=== PATIENT | male | born 1950 ===

== ENCOUNTER → 2020-06-29 09:57 | Outpatient (BNVA) | payer MEDICARE, MEDICAID, SELFPAY | PROVIDERS: PCP Internal Medicine; Referring Provider Internal Medicine; Visit Provider Urology | DX: N40.1 Benign prostatic hyperplasia with lower urinary tract symptoms (principal); N13.8 Other obstructive and reflux uropathy; R33.8 Other retention of urine | CPT/HCPCS: 52000; 81003; 99213 ==

== ENCOUNTER 2020-07-06 11:35 | Emergency (ER) | payer MEDICARE, MEDICAID, SELFPAY ==
[2020-07-06] VITALS (9 sets, daily range): BP systolic 93–170; BP diastolic 48–99; PULSE 66–106; RESP 16–17; TEMP 36.5–37.4; O2SAT 95–99; BMI 20.7
--- NOTE | 2020-07-06 | CT_ITS ---
EXAMINATION: CHEST X-RAY CLINICAL INFORMATION: Acute mental status change COMPARISON: Previous chest x-ray April 2020 TECHNIQUE: AP portable chest FINDINGS: The cardiac and mediastinal contours are normal. The lungs are clear. There is no pleural effusion or pneumothorax. There are degenerative changes of the spine. IMPRESSION: No evidence for acute disease in the chest. EXAMINATION: Head CT without contrast CLINICAL INFORMATION: Acute mental status change COMPARISON: Previous head CT and brain MRI April 2020 TECHNIQUE: Axial images through the brain without contrast. Sagittal and coronal reconstructions on the technologist workstation were performed. Patient dose 6 8 4 mg/cm. FINDINGS: There is no evidence of an extra-axial collection. There is no evidence of intra or extra-axial hemorrhage. Ventricles and extra-axial CSF spaces are appropriate. There is nonspecific periventricular white matter disease, greatest in the left occipital lobe adjacent to the posterior horn of the left lateral ventricle. Similar to previous exams. No mass, mass effect or acute infarct is seen. Visualized paranasal sinuses, mastoid air cells and middle ears are clear. No skull fracture or bone lesion is seen. IMPRESSION: No acute findings. Periventricular white matter disease in the left occipital lobe similar to April 2020 exam.
--- NOTE | 2020-07-06 12:42 | PC.NURSE ---
per [facility] staff pt has been paranoid with doors and locks, pt refusing to urinate d/t paranoia of doors, pt states doors are out to kill him. pt showering and eating/drinking okay. recent inpatient admission [facility]
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
--- NOTE | 2020-07-06 13:01 | PC.NURSE ---
pt being changed over with security at this time
[2020-07-06 13:29] LABS: MANUAL DIFF FLAG NO
[2020-07-06 13:34] LABS: Basophils Percent Auto 0.6 % (0-2); Eosinophils Absolute Auto 0.1 X10*3/uL (0.0-0.4); Eosinophils Percent Auto 1.5 % (0-4); Hematocrit 42.4 % (42-52); Imm Gran Abs Auto 0.03 X10*3/uL (0.00-0.03); Imm Gran Pct Auto 0.6 % (0.0-0.4); Lymphocytes Absolute Auto 1.9 X10*3/uL (1.2-4.9); Mean Corpuscular Hemoglobin 31.3 pg (27.0-33.0); Mean Corpuscular Volume 94.9 fL (80-98); Mean Platelet Volume 7.8 fL (9.4-12.4); Monocytes Absolute Auto 0.7 X10*3/uL (0.1-1.2); Monocytes Percent Auto 14.1 % (2-11); Neutrophils Absolute Auto 2.5 X10*3/uL (2.0-8.3); Neutrophils Percent Auto 47.2 % (45-73); Platelet Count 203 X10*3/uL (160-400); Red Blood Count 4.47 X10*6/uL (4.60-5.80); Red Cell Distribution Width 12.9 % (11.0-16.0); White Blood Count 5.2 X10*3/uL (4.8-10.8)
[2020-07-06 13:43] LABS: INTERNATIONAL NORM RATIO 1.1 (0.9-1.1); Prothrombin Time 13.1 SEC (10.8-13.0)
[2020-07-06 13:59] LABS: Ethanol < 10 mg/dL
[2020-07-06 14:09] LABS: Acetaminophen LAB < 1 mcg/mL (<30); Alanine Aminotransferase < 6 U/L (0-40); Alkaline Phosphatase 66 U/L (39-117); Anion Gap 11 (12-20); Aspartate Amino Transferase 15 U/L (5-37); Bilirubin Direct 0.2 mg/dL (0.0-0.5); Bilirubin Total 0.3 mg/dL (0.0-1.0); Blood Urea Nitrogen 11 mg/dL (9-16); Carbon Dioxide 32 mmol/L (22-29); Chloride 98 mmol/L (96-108); Estimated Glomerular Filt Rate > 60; Glucose Random 67 mg/dL (60-115); Lipase 9 U/L (8-78); Potassium 4.2 mmol/l (3.3-5.1); Sodium 137 mmol/L (135-145); Total Protein 6.5 g/dL (6.5-8.0)
[2020-07-06 14:18] LABS: Salicylate < 5.0 mg/dL (15-30)
--- NOTE | 2020-07-06 15:13 | PC.NURSE ---
factory engineer placing consult for med rec. pharmacy aware
--- NOTE | 2020-07-06 16:37 | PC.NURSE ---
FAXED TO [facility], SPOKE WITH LIYA
[2020-07-06 17:04] LABS: Glucose Urine UA NEG (NEG); Leukocyte Esterase Urine NEG (NEG); Nitrite Urine NEG (NEG); Specific Gravity - Urine 1.015 (1.005-1.025); Urine Blood NEG (NEG); Urine Ketones NEG (NEG); Urine Protein NEG (NEG-TRACE)
[2020-07-06 17:06] LABS: Appearance Urine CLEAR; Color Urine YELLOW
--- NOTE | 2020-07-06 17:22 | PC.NURSE ---
CONTINUES TO AWAIT N, STAFF REMAINS AT BEDSIDE
[2020-07-06 17:41] LABS: Amphetamine Screen Urine Not Detected (Not Detect); Barbiturates, Urine Not Detected (Not Detect); Benzodiazepines Screen Urine Not Detected (Not Detect); Cannabinoid Screen Urine Not Detected (Not Detect); Cocaine Screen Urine Not Detected (Not Detect); Opiate Screen Urine Not Detected (Not Detect); Phencyclidine Screen Urine Not Detected (Not Detect)
--- NOTE | 2020-07-06 18:02 | PC.NURSE ---
CALL PLACED TO KITCHEN FOR SOFT DIET
--- NOTE | 2020-07-06 18:41 | PC.NURSE ---
PT ATE 100% OF DINNER
[2020-07-06] MEDS: Carbidopa/Levodopa 25/100 TABLET 1.5 TAB PO (20:45)
[2020-07-06] MEDS: LORazepam 1 MG TABLET 2 MG PO (20:45)
[2020-07-06 21:03] LABS: Glucose, Whole Blood 98 mg/dL (60-115)
[2020-07-07] VITALS (9 sets, daily range): BP systolic 104–190; BP diastolic 67–113; PULSE 73–98; RESP 12–20; TEMP 36.6–37.3; O2SAT 96–98
[2020-07-07 08:30] LABS: Glucose, Whole Blood 101 mg/dL (60-115)
[2020-07-07] MEDS: Carbidopa/Levodopa 25/100 TABLET 1.5 TAB PO ×2 (11:01→16:51)
[2020-07-07 13:11] LABS: Glucose, Whole Blood 90 mg/dL (60-115)
--- NOTE | 2020-07-07 15:16 | PC.NURSE ---
Updated ED transfer summary fzxed to Kristyn at [facility], per her request.
[2020-07-07] MEDS: lisinopriL 20 MG TABLET PO (16:51)
--- NOTE | 2020-07-07 22:44 | PC.NURSE ---
PT HAS BEEN CALM AND COOPERATIVE RESTING IN STRETCHER WITH SITTER AT BEDSIDE WITH PT. WILL CONTINUE TO MONITOR PT.
[2020-07-08] VITALS (10 sets, daily range): BP systolic 143–165; BP diastolic 65–99; PULSE 74–103; RESP 14–20; TEMP 36.6; O2SAT 96–98
[2020-07-08] MEDS: lisinopriL 20 MG TABLET PO ×2 (00:02→22:39)
[2020-07-08] MEDS: Carbidopa/Levodopa 25/100 TABLET 1.5 TAB PO ×5 (00:04→22:39)
--- NOTE | 2020-07-08 14:54 | PC.NURSE ---
RECEIVED REPORT FROM JUSTINA PT IS CURRENTLY SITTING ON THE EDGE OF THE BED, RESPIRATIONS EVEN AND UNLABORED, IN NO APPARENT DISTRESS AT THIS TIME PT CONTINUOS ON BEING BERNICE BED SEARCH SITTER IN PLACE
[2020-07-09] VITALS (12 sets, daily range): BP systolic 133–155; BP diastolic 82–105; PULSE 76–98; RESP 14–20; TEMP 36.3–37.1; O2SAT 95–99
--- NOTE | 2020-07-09 02:27 | PC.NURSE ---
PATIENT AWAKE WATCHING TELEVISION ,REPOSITION PATIENT AND ASSIST PATIENT WITH DRINKS.
--- NOTE | 2020-07-09 03:45 | PC.NURSE ---
Pt sleeping at this time. Resp reg and even. NAD. Sitter maintained.
[2020-07-09] MEDS: LORazepam 1 MG TABLET 2 MG PO ×2 (04:59→23:21)
[2020-07-09] MEDS: Acetaminophen 325 MG TABLET 650 MG PO ×2 (04:59→23:21)
--- NOTE | 2020-07-09 06:02 | PC.NURSE ---
Late entry: Pt agitated, speaking in Cypriot, but not making sense to Cypriot speaking staff. Pt declining to go in wheelchair or recliner. Urinal offered and declined. Lotion applied to legs and back. Pt assisted back from the edge of his bed. Pt continuing to be agitated, order of Ativan PO obtained and admin per mar as well as PRN tylenol. Pt currently resting with eyes closed, sitter maintained for safety.
--- NOTE | 2020-07-09 06:11 | PC.NURSE ---
PATIENT REFUSED VITALS ,NURSE AWARE.
--- NOTE | 2020-07-09 07:00 | PC.NURSE ---
RECEIVED REPORT FROM PANCHITO LANDERS. PT SLEEPING ON STRETCHER IN POSITION OF COMFORT. SKIN WPD. RESPIRATIONS EVEN AND NON LABORED. IN CLEAR VIEW OF PATIENT OBSERVER.
[2020-07-09] MEDS: Carbidopa/Levodopa 25/100 TABLET 1.5 TAB PO ×3 (10:20→23:22)
[2020-07-09] MEDS: Mineral Oil/Petrolatum,White 106 GM Tube 1 APPL TOPICAL (10:47)
--- NOTE | 2020-07-09 13:45 | PC.NURSE ---
PT WAS FED HIS LUNCH. PT ATE 100% OF LUNCH. NO APPARENT DISTRESS NOTED.
--- NOTE | 2020-07-09 15:46 | PC.NURSE ---
PATIENT WAS GIVEN A BED BATH BY THIS PCT ,PATIENT WAS INC. OF MODERATE STOOL
--- NOTE | 2020-07-09 16:25 | PC.NURSE ---
sPOKE WITH [facility]. [facility] WING LOOKING AT PATIENT. PATIENT TO HAVE EKG, COVID ,CXR AND LABS RESULTS FAXED OVER FOR FURTHER EVAL.
[2020-07-09 16:38] LABS: Glucose, Whole Blood 108 mg/dL (60-115)
--- NOTE | 2020-07-09 16:48 | ECG_ITS ---
Test Reason : BEHAVIROL Blood Pressure : / mmHG Vent. Rate : 100 BPM Atrial Rate : 200 BPM P-R Int : 000 ms QRS Dur : 084 ms QT Int : 308 ms P-R-T Axes : 111 -27 -02 degrees QTc Int : 397 ms Atrial flutter with 2:1 A-V conduction Nonspecific T wave abnormality RSR' or QR pattern in V1 suggests right ventricular conduction delay Left axis deviation Abnormal ECG Heart rate has increased aflutter is new Left axis deviation is new Referred By: Ashish Oneill Electronically Signed By:JACOBO JACOB MD
--- NOTE | 2020-07-09 17:05 | PC.NURSE ---
PATIENT WAS INC OF LARGE BOWEL MOVEMENT ,BECAME RESISTIVE WHILE CLEANING HIM .
[2020-07-09] MEDS: LORazepam 2 MG/ML VIAL 1 MG IM (17:26)
--- NOTE | 2020-07-09 17:27 | PC.NURSE ---
patient medicated with ativan 1mg im for aggressive behavior. covid swab done
[2020-07-09 18:32] LABS: SARS COV2 PCR INHOUSE NEGATIVE (Negative)
--- NOTE | 2020-07-09 18:52 | PC.NURSE ---
PATIENT WAS FED BY THIS PCT ,PATIENT ATE 100 % OF MEAL.
[2020-07-09] MEDS: lisinopriL 20 MG TABLET PO (23:21)
--- NOTE | 2020-07-09 23:25 | PC.NURSE ---
report from freddy rn, pt attempting to get out of bed, this rn along with newspaper copy editor garcia assisting pt back into bed, pt yelling and getting aggressive towards staff, slurry man nathen made aware and plan to medicate with tylenol and ativan as given last night with good affect. staff medical interpretor called and assisting.
--- NOTE | 2020-07-09 23:43 | PC.NURSE ---
PT REFUSING TO TAKE PO MEDS AT THIS TIME, WILL RE ATTEMPT AFTER GIVING PT SOME TIME, PROVIDER MADE AWARE
[2020-07-10] VITALS (12 sets, daily range): BP systolic 123–146; BP diastolic 64–89; PULSE 88–92; RESP 14–18; TEMP 37.2; O2SAT 95–97
--- NOTE | 2020-07-10 00:09 | PC.NURSE ---
PT SEEN SLEEPING AT THIS TIME, NO PO MEDS GIVEN. UNABLE TO CHART AGAINST IN MAR
--- NOTE | 2020-07-10 08:54 | ECG_ITS ---
Test Reason : QUESTION A FLUTTER Blood Pressure : / mmHG Vent. Rate : 097 BPM Atrial Rate : 097 BPM P-R Int : 144 ms QRS Dur : 092 ms QT Int : 340 ms P-R-T Axes : 038 -27 024 degrees QTc Int : 431 ms Normal sinus rhythm RSR' or QR pattern in V1 suggests right ventricular conduction delay Left axis deviation Nonspecific ST abnormality Abnormal ECG Normal sinus rhythm has replaced aflutter Referred By: Ashish Oneill Electronically Signed By:JACOBO JACOB MD
[2020-07-10] MEDS: Carbidopa/Levodopa 25/100 TABLET 1.5 TAB PO (09:15)
--- NOTE | 2020-07-10 09:20 | PC.NURSE ---
pharmacy called for missing medications, mineral oil and phylum seed
[2020-07-10] MEDS: LORazepam 2 MG/ML VIAL IM (10:08)
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
[2020-07-10] MEDS: LORazepam 2 MG/ML VIAL 1 MG IM (10:42)
--- NOTE | 2020-07-10 11:12 | PC.NURSE ---
all info faxed to . lv took report from this rn
--- NOTE | 2020-07-10 13:34 | PC.NURSE ---
patient sleeping/calm, rr 18, sitter at bedside, will continue to monitor.
--- NOTE | 2020-07-10 15:03 | PC.NURSE ---
spoke with patric at [facility], accepting doctor is dr. kirstin harrell
--- NOTE | 2020-07-10 16:42 | PC.NURSE ---
pt refusal earlier to take medication, pt was previously given ativan for agitation, patient is currently sleeping/calm, rr 18, will continue to monitor.
== END 2020-07-10 19:08 ==
PROVIDERS: Nurse Practitioner Primary Care; Physician Assistant; Emergency Provider Internal Medicine; PCP Internal Medicine
DX: F20.9 Schizophrenia, unspecified (principal); Z20.828 Contact with and (suspected) exposure to other viral communicable diseases; R62.50 Unspecified lack of expected normal physiological development in childhood; F39 Unspecified mood [affective] disorder; E11.9 Type 2 diabetes mellitus without complications; I10 Essential (primary) hypertension; G20 Parkinson's disease; Z79.899 Other long term (current) drug therapy; Z79.82 Long term (current) use of aspirin; Z79.84 Long term (current) use of oral hypoglycemic drugs
CPT/HCPCS: 36415; 70450; 71045; 80053; 80076; 80164; 80307; 80320; 81003; 82248; 82947; 83690; 85025; 85610; 87635; 93005; 96372; 99285; G0480; J2060

== ENCOUNTER 2020-08-18 14:21 | Emergency (ER) | payer MEDICARE, MEDICAID, SELFPAY ==
[2020-08-18] VITALS (7 sets, daily range): BP systolic 000–167; BP diastolic 00–85; PULSE 89–129; RESP 16–20; TEMP -17.7–37; O2SAT 99–100; BMI 24.0
--- NOTE | 2020-08-18 14:46 | ED_ITS ---
HPI - Psych General Chief Complaint: Psychiatric Symptoms Stated Complaint: CRISIS Time Seen by Provider: 08/18/20 14:45 Source: EMS Mode of arrival: EMS Limitations: no limitations History of Present Illness HPI Narrative: this is 70-year-old is primarily Liberian-speaking male who presents from the [facility] via EMS with past medical history that is significant for hypertension, dyslipidemia, gastroesophageal reflux disease, irritable bowel syndrome, type 2 diabetes, mood disorder, depressive disorder, schizophrenia, moderate mental retardation, hypercholesteremia along with other history as noted below with complaint of patient has been increasingly paranoid, delusional with expression of SI with no plan from [facility] he where he was seen by crisis team and sent to emergency room for psychiatric bed search. Patient upon arrival offers no complaints does appear to be disorganized does not say much but walks back and forth. On the face sheet from the [facility] there is section this is relevant give abilities, limitations and performance; factor is highly capable but is considered incompetent. He has the ability to learn new things with minimal assistance, and can maintain skill acquisition. Ezekiel has poor short-term memory. MD complaint: suicidal ideation Onset (ago): week(s) Duration: constant History of same: Yes Relieving factors: none Associated psychiatric symptoms: none Associated symptoms: denies other symptoms Treatments prior to arrival: none If self harm: admits thoughts of self harm Related Data Home Medications Medication Instructions Recorded Confirmed aspirin 81 mg tablet,delayed 81 mg PO DAILY 06/27/20 08/18/20 release benztropine 0.5 mg tablet 0.5 mg PO BID 06/27/20 08/18/20 cholecalciferol (vitamin D3) 25 25 mcg PO DAILY 06/27/20 08/18/20 mcg (1,000 unit) tablet metformin 500 mg tablet 500 mg PO BIDWM 06/27/20 08/18/20 mirtazapine 15 mg tablet 22.5 mg PO BEDTIME tab 06/27/20 08/18/20 omeprazole 20 mg capsule,delayed 20 mg PO DAILY@0600 06/27/20 08/18/20 release simvastatin 10 mg tablet 10 mg PO BEDTIME 06/27/20 08/18/20 carbidopa-levodopa 1.5 tab PO QID 07/06/20 08/18/20 glycerin [Artificial Tears 2 drp OPHTHALMIC (EYE) Q2H PRN 07/06/20 08/18/20 (glycerin)] lisinopril 20 mg PO BEDTIME 07/06/20 08/18/20 divalproex 250 mg tablet,delayed 250 mg PO TID 08/15/20 08/18/20 release duloxetine 60 mg capsule,delayed 60 mg PO DAILY 08/15/20 08/18/20 release magnesium hydroxide 800 mg/5 mL 2,400 mg PO BEDTIME PRN 08/15/20 08/18/20 oral suspension risperidone 0.5 mg tablet 0.5 mg PO BEDTIME PRN 08/15/20 08/18/20 risperidone 1 mg tablet 1 mg PO BID 08/15/20 08/18/20 tamsulosin 0.4 mg capsule 0.4 mg PO DAILY 08/15/20 08/18/20 topiramate 50 mg tablet 50 mg PO DAILY tab 08/15/20 08/18/20 Previous Rx's Medication Instructions Recorded acetaminophen 325 mg tablet 650 mg PO .Q8 hours PRN 30 Days 08/03/20 #60 tab calcium carbonate 500 mg calcium 1,000 mg PO DAILY PRN #60 tab 08/15/20 (1,250 mg) chewable tablet docusate sodium 100 mg capsule 100 mg PO BID PRN #60 cap 08/15/20 flaxseed oil 1,000 mg capsule 1,000 mg PO TID #90 cap 08/15/20 guaifenesin 100 mg/5 mL oral liquid 200 mg PO Q6H PRN #1000 ml 08/15/20 mineral oil-isopropyl myristat 1 applic TOPICAL DAILY #472 ml 08/15/20 lotion psyllium husk 0.52 gram capsule 1.04 g PO TID PRN #30 cap 08/16/20 Allergies Allergy/AdvReac Type Severity Reaction Status Date / Time perfume Allergy Intermediate ITCHING Verified 08/15/20 15:18 Review of Systems Review of Systems: Constitutional: No Weight loss, No Fever, No Chills, No Night Sweats, No Fatigue, No Malaise ENT/Mouth: No Hearing loss, No Ear Pain, No Nasal Congestion, No Sinus Pain, No Hoarseness, No sore throat Eyes: No Eye Pain, No Swelling, No Redness, No Foreign Body Cardiovascular: No Chest Pain, No SOB, No Dyspnea on Exertion, No Orthopnea, No Edema, No Palpitations Respiratory: No Cough, No Sputum, No Wheezing, No Smoke Exposure, No Dyspnea Gastrointestinal: No Nausea, No Vomiting, No Diarrhea, No Constipation, No abdominal Pain Genitourinary: no irregular bleeding, No Dysuria, No Urinary Frequency, No Hematuria, No Urinary Incontinence, No Urgency, No Flank Pain Musculoskeletal: No joint pain, No Myalgias, No Joint Swelling Skin: No Skin Lesions, No rash Neuro: No Weakness, No Numbness, No Paresthesias, No Loss of Consciousness Psych: No Anxiety/Panic, No Depression Heme/Lymph: No Bruising, No Bleeding,No Lymphadenopathy Endocrine: No Polyuria, No Polydipsia, No Temperature Intolerance Yes all other systems are reviewed and are negative [facility] Past Medical History Attestation statement: The following information was validated with the patient. Medical History (Updated 08/18/20 @ 18:01 by Jl Degroot NP) BPH with obstruction/lower urinary tract symptoms Depression Developmental delay, moderate Dysphagia Gastroesophageal reflux disease Hypercholesteremia Hypertension Metabolic encephalopathy Mood disorder Parkinson's disease Schizophrenia Tubular adenoma of colon Type 2 diabetes mellitus with hyperglycemia Vitamin D deficiency Surgical History (Updated 07/07/20 @ 12:59 by Mila Ortega Brittny) History of circumcision History of colonoscopy History of prostate surgery Family History Family History Father Type II diabetes mellitus Mother Type II diabetes mellitus Social History Social History Alcohol intake: unknown Smoking Status: Unknown if ever smoked Use of substances other than those prescribed or required for medical reasons: Unknown Advance Directives: No Advance Directives Information Provided: No Physical Exam Vital Signs: Vital Signs: Last Vital Signs Temp 98.0 F 08/18/20 17:05 Pulse 93 08/18/20 17:05 Resp 20 08/18/20 17:05 BP 107/76 08/18/20 17:05 Pulse Ox 99 08/18/20 17:05 Body Mass Index 24.0 Reviewed Const: General: cooperative and healthy appearing; No acute distress or intoxicated appearing Nutritional Appearance: average body habitus Orientation/consciousness: patient oriented x3 HENMT: Head: Yes normal to inspection Ears: hearing grossly normal bilaterally Eyes: General: appearance normal, both eyes and all related structures Visual Monterroso: normal visual monterroso by confrontation Neck: Neck: Yes normal visual inspection and No tender Thyroid: Thyroid normal Chest: Chest palpation & inspection: normal inspection of the chest Resp: Effort & Inspection: normal respiratory effort Cardio: Jugular venous distension: no JVD GI: Inspection: Yes normal to inspection Percussion: Yes normal to percussion Auscultation: normal bowel sounds : General: Yes no CVA tenderness Back/Spine/Pelvis: Back: no CVA tenderness Skin: General skin exam: no rashes or lesions noted Neuro: General: patient oriented x3 Extrem: General: Yes normal to inspection Course Course Course Narrative: Patient offers no complaints does require redirection. Medical screening labs given age head CT and will monitor. Once medically clear psychiatric bed search will be initiated. Reevaluation(s) Reevaluation #1: Informed by RN that patient was slightly tachycardic and blood pressure was on the lower side patient was pacing back and forth so patient was moved to emergency room. Labs ordered patient appears well nontoxic and comfortable. Reevaluation #2: 1800 Workup essentially unremarkable head CT negative. Patient has been resting comfortably blood pressure is stable his heart rate is 78. patient medically cleared for psychiatric bed search. MDM - Psych Restraints Face to Face Assessment: Face to Face Assessment: Current Situation: After assessment of the patient, a review of the pertinent medical record and a discussion with nursing staff, I feel the patient requires a restrain intervention. Reaction To: [] Medical Condition: [] Behavioral State: [] Continued Need: [] Lab Data Result diagrams: 08/18/20 16:58 08/18/20 16:58 Labs: Lab Results 08/18/20 08/18/20 08/18/20 Range/Units 16:58 16:58 16:58 WBC 5.9 (4.8-10.8) X10*3/uL RBC 4.45 L (4.60-5.80) X10*6/uL Hgb 13.8 L (14.0-18.0) g/dl Hct 41.7 L (42-52) % MCV 93.7 (80-98) fL MCH 31.0 (27.0-33.0) pg MCHC 33.1 (31.0-36.0) g/dl RDW 13.4 (11.0-16.0) % Plt Count 211 (160-400) X10*3/uL MPV 8.5 L (9.4-12.4) fL Immature Gran % (Auto) 0.3 (0.0-0.4) % Neut % (Auto) 57.5 (45-73) % Lymph % (Auto) 25.8 (20-40) % [place] % (Auto) 15.7 H (2-11) % Eos % (Auto) 0.5 (0-4) % Baso % (Auto) 0.2 (0-2) % Lymph # (Auto) 1.5 (1.2-4.9) X10*3/uL [place] # (Auto) 0.9 (0.1-1.2) X10*3/uL Eos # (Auto) 0.0 (0.0-0.4) X10*3/uL Baso # (Auto) 0.0 (0.0-0.2) X10*3/uL Abs Immat Gran (auto) 0.02 (0.00-0.03) X10*3/uL Absolute Neuts (auto) 3.4 (2.0-8.3) X10*3/uL Absolute Nucleated RBC 0.000 (0.0-0.012) X10*3/uL Nucleated RBC % (auto) 0.0 (0.0-0.2) /100WBC PT 12.4 (10.8-13.0) SEC INR 1.0 (0.9-1.1) APTT 34.0 (24.1-38.0) SEC Sodium 137 (135-145) mmol/L Potassium 4.7 (3.3-5.1) mmol/l Chloride 100 (96-108) mmol/L Carbon Dioxide 27 (22-29) mmol/L Anion Gap 15 (12-20) BUN 16 (9-16) mg/dL Creatinine 0.93 (0.5-1.4) mg/dL Estim Creat Clear Calc 61.0 Estimated GFR > 60 Random Glucose 86 (60-115) mg/dL Calcium 9.3 (8.4-10.2) mg/dL Total Bilirubin 0.5 (0.0-1.0) mg/dL AST 15 (5-37) U/L ALT < 6 (0-40) U/L Alkaline Phosphatase 78 (39-117) U/L Total Protein 7.2 (6.5-8.0) g/dL Albumin 4.3 (3.5-5.0) g/dL Ethyl Alcohol mg/dL COVID-19 (MICHELLE) COVID-19 Clin Com 08/18/20 08/18/20 08/18/20 Range/Units 16:58 16:58 17:21 WBC (4.8-10.8) X10*3/uL RBC (4.60-5.80) X10*6/uL Hgb (14.0-18.0) g/dl Hct (42-52) % MCV (80-98) fL MCH (27.0-33.0) pg MCHC (31.0-36.0) g/dl RDW (11.0-16.0) % Plt Count (160-400) X10*3/uL MPV (9.4-12.4) fL Immature Gran % (Auto) (0.0-0.4) % Neut % (Auto) (45-73) % Lymph % (Auto) (20-40) % Denton % (Auto) (2-11) % Eos % (Auto) (0-4) % Baso % (Auto) (0-2) % Lymph # (Auto) (1.2-4.9) X10*3/uL [place] # (Auto) (0.1-1.2) X10*3/uL Eos # (Auto) (0.0-0.4) X10*3/uL Baso # (Auto) (0.0-0.2) X10*3/uL Abs Immat Gran (auto) (0.00-0.03) X10*3/uL Absolute Neuts (auto) (2.0-8.3) X10*3/uL Absolute Nucleated RBC (0.0-0.012) X10*3/uL Nucleated RBC % (auto) (0.0-0.2) /100WBC PT (10.8-13.0) SEC INR (0.9-1.1) APTT (24.1-38.0) SEC Sodium (135-145) mmol/L Potassium (3.3-5.1) mmol/l Chloride (96-108) mmol/L Carbon Dioxide (22-29) mmol/L Anion Gap (12-20) BUN (9-16) mg/dL Creatinine (0.5-1.4) mg/dL Estim Creat Clear Calc Estimated GFR Random Glucose (60-115) mg/dL Calcium (8.4-10.2) mg/dL Total Bilirubin (0.0-1.0) mg/dL AST (5-37) U/L ALT (0-40) U/L Alkaline Phosphatase (39-117) U/L Total Protein (6.5-8.0) g/dL Albumin (3.5-5.0) g/dL Ethyl Alcohol < 10 mg/dL COVID-19 (MICHELLE) Cancelled Positive A COVID-19 Clin Com Cancelled See Note Discharge Plan Discharge Clinical Impression: Schizophrenia, Suicidal ideation, Chronic schizophrenia Prescriptions: No Action acetaminophen 325 mg tablet 650 mg PO .Q8 hours PRN (Reason: fever or pain) 30 Days Qty: 60 RF: 2 psyllium husk [Fiber Laxative (psyllium husk)] 0.52 gram capsule 1.04 g PO TID PRN (Reason: constipation) Qty: 30 RF: 10 lisinopril 20 mg Tablet 20 mg PO BEDTIME RF: 0 Artificial Tears (glycerin) Drops 2 drp OPHTHALMIC (EYE) Q2H PRN (Reason: Dry Eyes) RF: 0 carbidopa-levodopa 25-100 mg Tablet 1.5 tab PO QID RF: 0 magnesium hydroxide 800 mg/5 mL suspension 2,400 mg PO BEDTIME PRN (Reason: Constipation) RF: 0 divalproex [Depakote] 250 mg tablet,delayed release (DR/EC) 250 mg PO TID RF: 0 duloxetine 60 mg capsule,delayed release(DR/EC) 60 mg PO DAILY RF: 0 risperidone 1 mg tablet 1 mg PO BID RF: 0 risperidone [Risperdal] 0.5 mg tablet 0.5 mg PO BEDTIME PRN (Reason: Anxiety) RF: 0 topiramate [Topamax] 50 mg tablet 50 mg PO DAILY RF: 0 tamsulosin 0.4 mg capsule 0.4 mg PO DAILY RF: 0 guaifenesin 100 mg/5 mL liquid 200 mg PO Q6H PRN (Reason: Cough) Qty: 1000 RF: 0 calcium carbonate 500 mg calcium (1,250 mg) tablet,chewable 1,000 mg PO DAILY PRN (Reason: Indigestion) Qty: 60 RF: 3 docusate sodium [Colace] 100 mg capsule 100 mg PO BID PRN (Reason: constipation) Qty: 60 RF: 0 flaxseed oil 1,000 mg capsule 1,000 mg PO TID Qty: 90 RF: 3 Hydrocerin Lotion 1 applic TOPICAL DAILY Qty: 472 RF: 0 omeprazole 20 mg capsule,delayed release(DR/EC) 20 mg PO DAILY@0600 RF: 0 mirtazapine 15 mg tablet 22.5 mg PO BEDTIME RF: 0 cholecalciferol (vitamin D3) [Vitamin D3] 25 mcg (1,000 unit) tablet 25 mcg PO DAILY RF: 0 metformin [Glucophage] 500 mg tablet 500 mg PO BIDWM RF: 0 benztropine 0.5 mg tablet 0.5 mg PO BID RF: 0 aspirin [Adult Low Dose Aspirin] 81 mg tablet,delayed release (DR/EC) 81 mg PO DAILY RF: 0 simvastatin 10 mg tablet 10 mg PO BEDTIME RF: 0
--- NOTE | 2020-08-18 14:55 | PC.NURSE ---
PT is section 12 bedsearch by [facility], per Section pt is disoriented, paranoid delusions, suicidal ideations with no plan. Per N pt multiple medication changes over the past month and has been decompensating. Medicaitons changes: Mirtazapine increased from 15mg, is now on 22.5mg daily Risperdal decreased from 4mg BID, is now on 1mg BID Depakote decreased from 1000mg at HS, is now on 250mg TID Cymbalta increased from 40mg, is now on 60mg daily Carbidopa-Levodopa decreased from 2500mg to37.5-150T 4 times daily Dicyclomine 10mg TID was discontinued
--- NOTE | 2020-08-18 15:36 | PC.NURSE ---
Report given to Leticia FLANAGAN, pt to be moved to Main ED.
[2020-08-18] MEDS: LORazepam 2 MG/ML VIAL 0.5 MG IVPUSH (16:59)
[2020-08-18] MEDS: 0.9 % Sodium Chloride 1,000 ML 1000 ML IV (17:00)
[2020-08-18 17:03] LABS: MANUAL DIFF FLAG NO
--- NOTE | 2020-08-18 17:17 | PC.NURSE ---
pt was coaxed to rest in the bed by staff, vulcan crewmember and security. Pt is speaking but not oriented, he states the same words over and over. IV was established, pt tolerated well. He was medicated for anxiety and is getting IVF. Labs were drawn and sent at time of IV cannulation, also Covid swab obtained and sent.
[2020-08-18 17:19] LABS: Basophils Percent Auto 0.2 % (0-2); Eosinophils Percent Auto 0.5 % (0-4); Hematocrit 41.7 % (42-52); Hemoglobin 13.8 g/dl (14.0-18.0); Imm Gran Abs Auto 0.02 X10*3/uL (0.00-0.03); Imm Gran Pct Auto 0.3 % (0.0-0.4); Lymphocytes Absolute Auto 1.5 X10*3/uL (1.2-4.9); Lymphocytes Percent Auto 25.8 % (20-40); Mean Corpuscular HGB Conc 33.1 g/dl (31.0-36.0); Mean Corpuscular Volume 93.7 fL (80-98); Mean Platelet Volume 8.5 fL (9.4-12.4); Monocytes Absolute Auto 0.9 X10*3/uL (0.1-1.2); Monocytes Percent Auto 15.7 % (2-11); Neutrophils Absolute Auto 3.4 X10*3/uL (2.0-8.3); Neutrophils Percent Auto 57.5 % (45-73); Platelet Count 211 X10*3/uL (160-400); Red Blood Count 4.45 X10*6/uL (4.60-5.80); Red Cell Distribution Width 13.4 % (11.0-16.0); White Blood Count 5.9 X10*3/uL (4.8-10.8)
[2020-08-18 17:22] LABS: Prothrombin Time 12.4 SEC (10.8-13.0)
[2020-08-18 17:41] LABS: Ethanol < 10 mg/dL
[2020-08-18 17:42] LABS: Alanine Aminotransferase < 6 U/L (0-40); Albumin Level 4.3 g/dL (3.5-5.0); Alkaline Phosphatase 78 U/L (39-117); Anion Gap 15 (12-20); Aspartate Amino Transferase 15 U/L (5-37); Bilirubin Total 0.5 mg/dL (0.0-1.0); Blood Urea Nitrogen 16 mg/dL (9-16); Calcium 9.3 mg/dL (8.4-10.2); Carbon Dioxide 27 mmol/L (22-29); Chloride 100 mmol/L (96-108); Estimated Glomerular Filt Rate > 60; Glucose Random 86 mg/dL (60-115); Potassium 4.7 mmol/l (3.3-5.1); Sodium 137 mmol/L (135-145); Total Protein 7.2 g/dL (6.5-8.0)
[2020-08-18 17:52] LABS: COVID-19 Test Positive (Negative); IDNOW Serial# 9DD0AD1C
[2020-08-18 18:09] LABS: Valproate 42.3 mcg/mL (50.0-100.0)
--- NOTE | 2020-08-18 22:13 | PC.NURSE ---
PT CLEANED UP AND EATING SANDWICH AND DRINKING RYAN [place]. PT CALM AND FOLLOWING SIMPLE COMMANDS. PT AWAKE AND SPEAKING IN LITHUANIAN TO PCT. PT UP SITTING IN A CHAIR EATING.
[2020-08-19] VITALS (15 sets, daily range): BP systolic 104–167; BP diastolic 68–123; PULSE 75–106; RESP 14–18; TEMP 36.7–37.3; O2SAT 96–100
--- NOTE | 2020-08-19 01:02 | PC.NURSE ---
PT RESTING IN STRETCHER AWAITING BED SEARCH. PT REMAINS ON 1:1 OBS. PT RESTING WITH EYES CLOSED BUT WAKES TO VERBAL STIMULI, RESPIRATIONS EASY, N/L. SKIN W/D. PT DENIES ANY COMPLAINTS AT THIS TIME.
--- NOTE | 2020-08-19 08:37 | PC.NURSE ---
RECEIVED REPORT FROM JILLIAN FLANAGAN THIS AM. PT SLEEPING SINCE WITH SITTER AT DOOR. P [facility] BEDSEARCH. SEC 12. COVID POSITIVE
--- NOTE | 2020-08-19 09:29 | PC.NURSE ---
AWAKE. DECLINES BREAKFAST
--- NOTE | 2020-08-19 12:03 | PC.NURSE ---
pt incontinent of urine and cleansed with new linnens by pct. this rn in room for assessment. pt is alert, able to follow simple commands but difficult to understant at times. no resp distress. nsr on monitor. iv flushed and clamped. pt stating he was hungry. during report it was noted that pt didn't eat breakfast. pt unable to fully coordinate hand to mouth d/t gross parkinsonian tremors for this rn. pt fed diabetic pudding and jello. meals to be pureed moving forward. pt brought warm blanket. offered recliner and choosing to remain in bed, right side lying. sitter outside of room. this rn to call [facility] for update on bedsearch. pt is calm. denies si at this time.
--- NOTE | 2020-08-19 12:11 | PC.NURSE ---
this rn calling heather rojas stating that status update was completed this am, bedsearch continues, bob needs mediacal records from ed faxed including covid test results. She states patient was in a DSS residential setting (prison) had increased paranoia and distrustful thoughts. they will fax med list to ed. [facility] fax is [phone]
[2020-08-19] MEDS: Divalproex Sodium 250 MG TABLET.DR PO ×2 (14:40→21:58)
--- NOTE | 2020-08-19 15:20 | PC.NURSE ---
Pt transfered to hospital bed with alarm. Has minimal bed mobility. Fed milk at pt's request. Pt has become hypertensive. ELECTRICAL ENGINEERING TECHNOLOGIST Is aware. Blanchable pink area on christiano prominence of coccyx. Posioned right side lying with pillows. pt becomes slightly aggitated during interventions but calms quickly.
[2020-08-19 15:24] LABS: Amphetamine Screen Urine Not Detected (Not Detect); Barbiturates, Urine Not Detected (Not Detect); Benzodiazepines Screen Urine Not Detected (Not Detect); Cannabinoid Screen Urine Not Detected (Not Detect); Cocaine Screen Urine Not Detected (Not Detect); Opiate Screen Urine Not Detected (Not Detect); Phencyclidine Screen Urine Not Detected (Not Detect)
--- NOTE | 2020-08-19 16:56 | PC.NURSE ---
cleansed of urine again when asked pt states he's better . has distant look. isn't very verbal during this visit from rn. awaits [facility] psych bed.
[2020-08-19] MEDS: metFORMIN HCl 500 MG TABLET PO (17:11)
[2020-08-19] MEDS: risperiDONE 0.5 MG TABLET PO (17:11)
--- NOTE | 2020-08-19 17:14 | PC.NURSE ---
pt is less interactive and seemingly frightened or aggitated with all interventions. tremors are increased, grabbing at linens and staff, unable to redirect with verbal prompts. risperdal prn administered.
--- NOTE | 2020-08-19 19:59 | PC.NURSE ---
PT HYPERTENSIVE AT THIS TIME, HAD BEEN EARLIER IN THE DAY ALSO BUT THIS RESOLVED W/DECREASED STIMULI. INSPECTOR FINAL ASSEMBLY CONVEYOR LINE AWARE
--- NOTE | 2020-08-19 21:22 | PC.NURSE ---
late entry 2044 pt cleansed after incontinent stool and urine. repositioned following linnen change.
[2020-08-19] MEDS: Mirtazapine 15 MG TABLET 22.5 MG PO (21:58)
[2020-08-19] MEDS: Benztropine Mesylate 0.5 MG TABLET PO (21:58)
[2020-08-19] MEDS: risperiDONE 1 MG TABLET PO (21:58)
[2020-08-20 01:56] VITALS: BP 176/96; PULSE 99; RESP 16; TEMP 36.4; O2SAT 6
[2020-08-20 04:00] VITALS: BP 161/93; PULSE 84; RESP 16; TEMP 36.3; O2SAT 96
[2020-08-20 05:48] VITALS: BP 185/91; PULSE 106; RESP 16; TEMP 36.3; O2SAT 97
--- NOTE | 2020-08-20 06:52 | PC.NURSE ---
REPORT FROM PANCHITO FARRELL. PT SLEEPING
[2020-08-20] MEDS: metFORMIN HCl 500 MG TABLET PO ×2 (08:32→16:42)
[2020-08-20] MEDS: risperiDONE 1 MG TABLET PO ×2 (08:33→22:12)
[2020-08-20] MEDS: DULoxetine HCl 60 MG CAPSULE.DR PO (08:33)
[2020-08-20] MEDS: Aspirin Enteric Coated 81 MG TABLET.DR PO (08:33)
[2020-08-20] MEDS: Divalproex Sodium 250 MG TABLET.DR PO ×3 (08:33→22:12)
--- NOTE | 2020-08-20 08:50 | PC.NURSE ---
PT ATE 100% OF BKFST. INCONT LARGE AMT OF URINE, CLEANED AND LINEN CHANGED. PT YELLING AT TIMES WHILE BEING CLEANED. SITTER MAINTAINED
[2020-08-20] MEDS: Topiramate 25 MG TABLET 50 MG PO (08:58)
[2020-08-20] MEDS: Benztropine Mesylate 0.5 MG TABLET PO ×2 (08:58→22:12)
--- NOTE | 2020-08-20 09:51 | PC.NURSE ---
SPOKE WITH N REGARDING CONCERNS ABOUT [facility] BEDSE[facility]. PT NEEDS HELP BEING FED AND HAS BEEN INCONT OF URINE.
--- NOTE | 2020-08-20 14:29 | PC.NURSE ---
PT FED LUNCH. 100% EATEN
[2020-08-20 16:36] VITALS: BP 134/83; PULSE 104; RESP 20; O2SAT 99
[2020-08-20 18:00] VITALS: BP 134/83; PULSE 104; RESP 16; TEMP 36.6; O2SAT 97
[2020-08-20] MEDS: Mirtazapine 15 MG TABLET 22.5 MG PO (22:11)
[2020-08-20 22:13] VITALS: BP 126/82; PULSE 100; RESP 16; O2SAT 98
[2020-08-21] VITALS (8 sets, daily range): BP systolic 102–138; BP diastolic 57–88; PULSE 85–109; RESP 14–18; TEMP 36.4–37.4; O2SAT 94–100
[2020-08-21] MEDS: Benztropine Mesylate 0.5 MG TABLET PO ×2 (08:30→20:45)
[2020-08-21] MEDS: Aspirin Enteric Coated 81 MG TABLET.DR PO (08:30)
[2020-08-21] MEDS: risperiDONE 1 MG TABLET PO ×2 (08:30→20:44)
[2020-08-21] MEDS: Topiramate 25 MG TABLET 50 MG PO (08:30)
[2020-08-21] MEDS: Divalproex Sodium 250 MG TABLET.DR PO ×3 (08:30→20:44)
[2020-08-21] MEDS: metFORMIN HCl 500 MG TABLET PO ×2 (08:30→17:47)
[2020-08-21] MEDS: DULoxetine HCl 60 MG CAPSULE.DR PO (08:30)
--- NOTE | 2020-08-21 09:54 | PC.NURSE ---
pt fed this am, took a few bites of pureed oatmeal, eggs. ate entire applesauce with meds. VS WNL. Pt calm & cooperative, repeatedly refusing any more food. Requested urinal, used appropriately. Able to follow commands, repositioned in bed. 15'' checks in place.
--- NOTE | 2020-08-21 12:00 | PC.NURSE ---
per chico, bedsearch ongoing
--- NOTE | 2020-08-21 15:17 | PC.NURSE ---
LINENS CHANGED, PT MEDICATED, ATE PUDDING, DRANK 2 MILKS. PT REPOSITIONED IN BED AND GIVEN BED BATH. PT REPEATEDLY REFUSING ALL OTHER FOODS.
[2020-08-21 15:31] LABS: Glucose, Whole Blood 97 mg/dL (60-115)
[2020-08-21] MEDS: Mirtazapine 15 MG TABLET 22.5 MG PO (20:44)
[2020-08-21 20:49] LABS: Glucose, Whole Blood 111 mg/dL (60-115)
[2020-08-21] MEDS: Acetaminophen 325 MG TABLET 650 MG PO (20:51)
--- NOTE | 2020-08-21 21:41 | PC.NURSE ---
S/E: Pt calm, cooperative to care, and denies any pain. Repositioned frequently. Completed bed change was done. Ate 100% of dinner, and fed by PCT. All scheduled HS med given with jello and tolerated well. PRN Tylenol 650 mg PO given at 5 with mild elevated Temp (T=99) with good effect. NAD. [facility] bedsearch continues. Sleeping well as of now. Will continue to monitor.
[2020-08-22] VITALS (10 sets, daily range): BP systolic 90–145; BP diastolic 47–87; PULSE 62–103; RESP 15–18; TEMP 36.6–36.8; O2SAT 95–99
--- NOTE | 2020-08-22 07:38 | PC.NURSE ---
Report received from Kasie FLANAGAN. Patient alseep and appears comfortable. Respirations regular and even, with equal chest rise/fall. Skin PWD. No distress noted. Will continue to monitor.
--- NOTE | 2020-08-22 08:35 | PC.NURSE ---
Cleaned up pt and changed bedding. Fed pt puree diet. Pt ate entire breakfast.
[2020-08-22] MEDS: Divalproex Sodium 250 MG TABLET.DR PO ×3 (09:05→21:39)
[2020-08-22] MEDS: DULoxetine HCl 60 MG CAPSULE.DR PO (09:05)
[2020-08-22] MEDS: risperiDONE 1 MG TABLET PO ×2 (09:05→21:39)
[2020-08-22] MEDS: metFORMIN HCl 500 MG TABLET PO ×2 (09:05→16:11)
[2020-08-22] MEDS: Aspirin Enteric Coated 81 MG TABLET.DR PO (09:05)
[2020-08-22] MEDS: Topiramate 25 MG TABLET 50 MG PO (09:05)
[2020-08-22] MEDS: Benztropine Mesylate 0.5 MG TABLET PO ×2 (09:05→21:39)
--- NOTE | 2020-08-22 09:10 | PC.NURSE ---
Patient continues to remain comfortable resting on stretcher. Medicated with AM meds in jello. Patient tolerated well and took very willingly. Respirations remain regular and even. Skin PWD.
--- NOTE | 2020-08-22 10:24 | PC.NURSE ---
Patient asleep on stretcher. Appears comfortable. Respirations remain regular and even. Skin PWD. Call fregoso in reach. Will continue to monitor.
--- NOTE | 2020-08-22 12:11 | PC.NURSE ---
Patient remains comfortable resting on stretcher. Sleeping on and off. Respirations remain regular and even. Skin PWD. Awaiting gael/psych bed placement.
[2020-08-22 13:47] LABS: Glucose, Whole Blood 70 mg/dL (60-115)
--- NOTE | 2020-08-22 14:00 | PC.NURSE ---
Patient bedding and linen changed of incontinent urine. Skin care completed. Patient appears comfortable resting on stretcher. TV on for entertainment. Respitations remain regular and even. Skin PWD. No COVID like symptoms despite the positive test. Patient fed lunch and ate 100% of food. Continues to await gael/psych bed search. Awaiting placement.
--- NOTE | 2020-08-22 16:00 | PC.NURSE ---
Patient remains calm and cooperative resting on stretcher. Respirations remain regular and even. Skin PWD. Gave afternoon medications in jello. Patient willingly took. Remains gael/psych bed search, awaiting placement.
--- NOTE | 2020-08-22 18:00 | PC.NURSE ---
Patient incontinent of urine, cleaned skin and changed linen. Patient fed dinner and ate 100% of meal. Appears comfortable with regular, even, and non-labored respirations. Skin PWD.
[2020-08-22] MEDS: Mirtazapine 15 MG TABLET 22.5 MG PO (21:39)
[2020-08-23] VITALS (11 sets, daily range): BP systolic 115–157; BP diastolic 65–90; PULSE 82–103; RESP 16–20; TEMP 36.4–37.2; O2SAT 97–100
--- NOTE | 2020-08-23 00:32 | PC.NURSE ---
Patient was given bed bath by this pct .
--- NOTE | 2020-08-23 07:04 | PC.NURSE ---
Report recieved from Johnna FLANAGAN. Pt sleeping in room at this time. No sign of distress. Respirations even/unlabored bilaterally. will continue to monitor.
[2020-08-23] MEDS: metFORMIN HCl 500 MG TABLET PO (08:56)
[2020-08-23] MEDS: Topiramate 25 MG TABLET 50 MG PO (08:56)
[2020-08-23] MEDS: Benztropine Mesylate 0.5 MG TABLET PO ×2 (08:57→21:30)
[2020-08-23] MEDS: risperiDONE 1 MG TABLET PO ×2 (08:57→21:30)
[2020-08-23] MEDS: Aspirin Enteric Coated 81 MG TABLET.DR PO (08:57)
[2020-08-23] MEDS: DULoxetine HCl 60 MG CAPSULE.DR PO (08:57)
[2020-08-23] MEDS: Divalproex Sodium 250 MG TABLET.DR PO ×2 (08:57→21:30)
--- NOTE | 2020-08-23 10:50 | PC.NURSE ---
Pt bed alarm sounding, pt found at end of bed attempting to get up. pt helped back to bed, pt cleaned and linens changed. Bed alarm armed. will continue to monitor.
--- NOTE | 2020-08-23 10:58 | PC.NURSE ---
Pt's bed alarm heard alarming for second time. Pt once again found at bottom end of bed attempting to get out. Helped pt back to bed again and placed bed alarm back in the on position. will continue to monitor.
--- NOTE | 2020-08-23 11:05 | PC.NURSE ---
Pt's bed alarm alarming for third time in 15 minutes, pt once again found at edge of bed attempting to get up. Pt repositioned back to bed. Charge nurse aware, sitter placed with pt for patient's safety. will continue to monitor.
--- NOTE | 2020-08-23 21:08 | PC.NURSE ---
Pt incontinent of urine, this RN at bedside to provide a complete bed change. Pt uncooperative with care due to baseline mental status, fighting with this RN and sitter while attempting to provide cassidy care to pt.
[2020-08-23] MEDS: Mirtazapine 15 MG TABLET 22.5 MG PO (21:30)
[2020-08-24] VITALS (16 sets, daily range): BP systolic 88–166; BP diastolic 56–104; PULSE 70–101; RESP 14–18; TEMP 36.4–37.2; O2SAT 94–100
--- NOTE | 2020-08-24 03:04 | PC.NURSE ---
Pt sleeping in bed at this time. No sitter at bedside. web mobile designer aware.
--- NOTE | 2020-08-24 03:07 | PC.NURSE ---
Sitter at bedside.
--- NOTE | 2020-08-24 06:12 | PC.NURSE ---
Pt awake in bed, repositioned for comfort. Pt noted to be clean/dry at this time. Pt provided with fresh linens and warm blankets. Pt requesting liquids, drinking gingerale with assistance. VSS. Pt awaiting breakfast. Sitter at bedside. Continue to monitor.
--- NOTE | 2020-08-24 08:59 | PC.NURSE ---
poc checked this AM, first check 50, second 45. pt alert. requesting liquids. pt drank 3 cups orange juice. MD and PA made aware. D50 amp given per orders. will continue to monitor blood sugar. pt refused to take all Am meds. RN trying to encourage pt to eat breakfast but pt will not at this time.
[2020-08-24 09:10] LABS: Glucose, Whole Blood 50 mg/dL (60-115)
[2020-08-24 09:10] LABS: Glucose, Whole Blood 63 mg/dL (60-115)
[2020-08-24 09:10] LABS: Glucose, Whole Blood 103 mg/dL (60-115)
[2020-08-24 09:10] LABS: Glucose, Whole Blood 45 mg/dL (60-115)
[2020-08-24 09:50] LABS: Glucose, Whole Blood 131 mg/dL (60-115)
[2020-08-24 11:13] LABS: COVID-19 Test Negative (Negative)
--- NOTE | 2020-08-24 11:15 | MHC.CARE ---
Due to length of [facility]Bed[facility], CARE Team requested Pt have a pyschiatry consult placed and repeat COVID test to assist in placement and treatment recommendation.
[2020-08-24 13:12] LABS: Glucose, Whole Blood 61 mg/dL (60-115)
[2020-08-24] MEDS: LORazepam 2 MG/ML VIAL IVPUSH (13:30)
[2020-08-24] MEDS: Dextrose 5 % and 0.45 % NaCl 1,000 ML 100 ML IVCONT (13:35)
--- NOTE | 2020-08-24 13:43 | CT_ITS ---
EXAMINATION: CT ABDOMEN AND PELVIS WO CONTRAST CLINICAL INFORMATION: Patient with right flank back pain. COMPARISON: Prior CT scan from February 2016 TECHNIQUE: Multidetector volumetric imaging was performed from the superior aspect of the liver through the pubic symphysis ,noncontrast study. Sagittal and coronal reformatted images were obtained on the technologist's workstation. This CT examination was performed using dose optimization techniques as appropriate, variously including the following: *Automated exposure control *Adjustment of mA and/or kV according to patient size (this includes techniques or standardized protocols for targeted exams where dose is matched to indication/reason for exam; i.e. extremities or head) *Use of iterative reconstruction technique DLP: 913 mGy-cm FINDINGS: LOWER THORAX: Included lung bases are clear. HEPATOBILIARY: Evaluation of the liver is limited on this noncontrast study. Grossly unremarkable. GALLBLADDER: Gallbladder unremarkable. SPLEEN: Spleen is normal in size. PANCREAS: No focal mass or ductal dilatation. STOMACH AND GASTROINTESTINAL TRACT: Stomach is grossly unremarkable. Excess amount of stool in the colon, concerning for possible constipation, no evidence of bowel obstruction. There is diffuse circumferential wall thickening of the distal rectum, although could be physiologic due to its incomplete distention; cannot rule out rectal lesion. ADRENALS: No adrenal nodules. KIDNEYS/URETERS: There is an isodense structure protruding from the anterior cortex of the left kidney, measures 7 x 5 mm, image 36 series 3. The attenuation of its matrix is higher than expected for a simple cyst, this could be complex proteinaceous dense cyst versus solid lesion. Has newly developed since prior study. There are no kidney stones. No hydronephrosis. Perinephric fat are clear. URINARY BLADDER: Circumferential wall thickening of the urinary bladder, nonspecific, can be associated with cystitis versus other diffuse infiltrative disease, versus hypertrophy due to chronic outflow obstruction. PELVIC VISCERA: There is a fluid and/or soft tissue within the left inguinal canal just above the left testicle, probably a left testicular hydrocele. PERITONEUM: No free air or fluid. LYMPH NODES: No lymphadenopathy. VASCULAR: Abdominal aorta normal in size, no aneurysm found. BONES, ABDOMINAL WALL AND SOFT TISSUES: Age-appropriate changes of the spine and skeletal system, no destructive osteolytic or osteosclerotic bone lesion found. CT/CT abdomen pelvis wo con IMPRESSION: 1. No CT evidence of kidney stones to explain patient's right flank pain. 2. There is a 7 mm structure protruding from the anterior cortex middle pole left kidney, the attenuation of which is higher than expected for a simple cyst; differential would include complex cyst versus renal lesion. It has newly developed since prior exam. Consider further evaluation, starting with renal ultrasound. 3. There is excess amount of stool in the colon, suggests possible constipation. 4. There is circumferential wall thickening of the distal rectum, although could be due to its incomplete distention and/or adherent stool, cannot entirely rule out rectal lesion. Correlation with clinical exam and follow up screening colonoscopy. 5. Circumferential wall thickening of the urinary bladder, also nonspecific. This can be seen in patient with cystitis cystica, chronic inflammatory and less commonly, neoplastic process. 6. Soft tissue/fluid in the left inguinal canal, probably left testicular hydrocele.
--- NOTE | 2020-08-24 13:56 | PC.NURSE ---
PT BLOOD SUGAR DROPPED TO 61. PT HAS NOT BEEN EATING TODAY. SPOKE WITH PA, PT STARTED ON D5 1/2 NS @ 100 ML /HOUR. PA WAS GOING TO ADMIT PT BUT WILL NOT BE ADMITTED. PT HAD SIMILAR SITUATION IN APRIL, WAS TAKEN OFF DIABETES MEDS. PT SHOULD NOT BE BACK ON MEDS, PA TO DC. PT HAS BEEN YELLING OUT, SPOKE WITH PT WITH PIPE CUTTER, PT C/O RIGHT BACK PAIN. PT WILL GO FOR CT SCAN.
[2020-08-24 14:28] LABS: Glucose, Whole Blood 101 mg/dL (60-115)
[2020-08-24 15:28] LABS: Glucose, Whole Blood 112 mg/dL (60-115)
[2020-08-24] MEDS: 0.9 % Sodium Chloride 1,000 ML 999 ML IVCONT (15:39)
--- NOTE | 2020-08-24 15:41 | PC.NURSE ---
bp low, PA aware. order for IV NS bolus. will continue to monitor B P and POC.
--- NOTE | 2020-08-24 16:05 | PC.NURSE ---
pt sleeping after getting ativfan. 1500 med held due to pt sleeping.
[2020-08-24 16:11] LABS: Glucose, Whole Blood 114 mg/dL (60-115)
[2020-08-24 16:40] LABS: Glucose, Whole Blood 117 mg/dL (60-115)
[2020-08-24] MEDS: Sodium Phosphate,Mono-Dibasic 133 ML ENEMA PR (17:05)
--- NOTE | 2020-08-24 19:02 | PC.NURSE ---
PATIENT REFUSED TO EAT DINNER ,RN AWARE.
--- NOTE | 2020-08-24 20:30 | PC.NURSE ---
PER TRAY SANCHEZ NP. POC GLUCOSE LEVELS STABLE, CAN NOW CHECK EVERY HOUR INSTEAD OF EVERY 30 MINUTES. PCT AWARE. WILL CONTINUE TO MONITOR.
[2020-08-24 21:46] LABS: Glucose, Whole Blood 126 mg/dL (60-115)
[2020-08-24 21:46] LABS: Glucose, Whole Blood 109 mg/dL (60-115)
[2020-08-24 21:46] LABS: Glucose, Whole Blood 105 mg/dL (60-115)
[2020-08-24 21:46] LABS: Glucose, Whole Blood 117 mg/dL (60-115)
[2020-08-24 21:46] LABS: Glucose, Whole Blood 107 mg/dL (60-115)
[2020-08-24 21:46] LABS: Glucose, Whole Blood 105 mg/dL (60-115)
[2020-08-24 21:46] LABS: Glucose, Whole Blood 114 mg/dL (60-115)
[2020-08-24 21:46] LABS: Glucose, Whole Blood 94 mg/dL (60-115)
--- NOTE | 2020-08-24 22:35 | PC.NURSE ---
PATIENT CONTINUE TO REFUSED FOOD OR DRINKS ,PATIENT WAS GIVEN A BED BATH PATIENT HAD NO BOWEL MOVEMENT ON MY SHIFT ,NURSE JOYCELYN AWARE .
[2020-08-24 22:43] LABS: Glucose, Whole Blood 104 mg/dL (60-115)
--- NOTE | 2020-08-24 23:14 | PC.NURSE ---
This rn at bedside, pt responsive to sternal rub, otherwise very drowsy. Vss, poc wnl. meds help at this time. primary rn kashmir aware of pt status.
[2020-08-24 23:20] LABS: Glucose, Whole Blood 119 mg/dL (60-115)
[2020-08-25] VITALS (14 sets, daily range): BP systolic 112–146; BP diastolic 68–88; PULSE 67–86; RESP 14–18; TEMP 36.1–37.2; O2SAT 93–98
[2020-08-25 00:22] LABS: Glucose, Whole Blood 80 mg/dL (60-115)
[2020-08-25] MEDS: Dextrose 5 % and 0.45 % NaCl 1,000 ML 100 ML IVCONT ×3 (00:25→20:20)
--- NOTE | 2020-08-25 01:45 | PC.NURSE ---
PATIENT SLEEPING AT THIS TIME. WILL CONTINUE TO MONITOR.
--- NOTE | 2020-08-25 04:03 | PC.NURSE ---
POC GLUCOSE 96. THIS RN AND AWARE. PT SLEEPING AT THIS TIME. NSR ON IT TRAINING SPECIALIST. WILL CONTINUE TO MONITOR.
[2020-08-25 04:07] LABS: Glucose, Whole Blood 96 mg/dL (60-115)
--- NOTE | 2020-08-25 04:58 | PC.NURSE ---
POC GLUCOSE 93. HANDS COOL TO TOUCH, WARM BLANKETS GIVEN. NO DISTRESS NOTED AT THIS TIME, SLEEPING. PULSE OXIMETER REPLACED/MOVED TO RIGHT THUMB. NSR ON CENTERLESS GRINDING MACHINE ADJUSTER. D5 1/2NS CONTINUES TO INFUSE ORDERED. BREAKFAST ORDERED. WILL CONTINUE TO MONITOR.
[2020-08-25 05:07] LABS: Glucose, Whole Blood 93 mg/dL (60-115)
[2020-08-25 07:32] LABS: Glucose, Whole Blood 100 mg/dL (60-115)
--- NOTE | 2020-08-25 07:35 | PC.NURSE ---
pt resting in the stretcher with eyes shut, pt soiled, cleaned up and clean hospital gown applied, repositioned in bed, bed alarm on, vs stable. pt refused to eat breakfast but did drink his juice
--- NOTE | 2020-08-25 07:42 | PC.NURSE ---
Pt refused to eat breakfast. Pt only drank orange juice. RN aware.
--- NOTE | 2020-08-25 08:38 | PC.NURSE ---
this rn attempted to feed the pt, pt refusing to try pudding/jello, refusing all morning meds,
--- NOTE | 2020-08-25 12:00 | PC.NURSE ---
pt refusing poc
--- NOTE | 2020-08-25 13:36 | PC.NURSE ---
Addendum entered by Honey Novoa 08/25/20 18:22: pt refused poc Original Note: patient wakes to verbal stimulus, warm blanket provided, vss, ivf running per order, will continue to monitor.
--- NOTE | 2020-08-25 15:15 | PC.NURSE ---
renata from [facility] called requesting updated covid testing to be sent, it was faxed per her request.
--- NOTE | 2020-08-25 15:30 | PC.NURSE ---
pt refusing po intake, stated no when asked if he would take his medication as he did in the am for previous shift
--- NOTE | 2020-08-25 16:21 | US_ITS ---
EXAMINATION: US RETROPERITONEAL LIMITED (RENAL ONLY) CLINICAL INFORMATION: Renal mass seen on CT scan. COMPARISON: CT scan 08/24/2020 and 03/23/2016 TECHNIQUE: Ultrasound of the kidneys was performed FINDINGS: RIGHT KIDNEY: 9.5 x 4.5 x 4.4 cm (SAG x AP x TRV). The kidney is normal in size, contour, and echogenicity. Renal cortical thickness is normal. No calculi or focal parenchymal lesions. No hydronephrosis. LEFT KIDNEY: 9.9 x 4.8 x 4.6 cm (SAG x AP x TRV). The kidney is normal in size, contour, and echogenicity. Renal cortical thickness is normal. There is a left upper pole benign simple renal cyst present measuring 1.4 cm. This is present on the prior CT (series 3 image 31), although not mentioned in the report. The tiny cortical 7 mm density seen anteriorly arising from the cortex is not appreciated on the ultrasound exam probably due to technical factors. I do believe that this was present on the 2016 CT scan and measured 6 mm in size. No calculi or other focal parenchymal lesions. No hydronephrosis. US/US renal BI IMPRESSION: The tiny left renal mass seen on the CT scan could not be imaged on the ultrasound study due to technical limitations. However, I do believe that this was present in 2016 increasing only a millimeter in size over nearly 4 year's time. Given its tiny size is most likely represents a small hyperattenuating cyst. Given the very slow progression I think a follow-up study in one year is reasonable. Another benign cyst is also present on the left which was seen on the CT scan.
[2020-08-25 17:27] LABS: Glucose, Whole Blood 88 mg/dL (60-115)
--- NOTE | 2020-08-25 17:43 | PC.NURSE ---
full bed change done, pt calm/compliant
--- NOTE | 2020-08-25 18:18 | PC.NURSE ---
patient awake, yelling, pt continues to refuse to allow blood sugars to be obtained, charge attempted to help and was unable to do so, pt continues to refuse med even with reapproach, pt refusing dinner as well, ivf running, will continue to monitor.
--- NOTE | 2020-08-25 19:00 | PC.NURSE ---
notified provider (Mihaela) of patients continued refusal of meds, poc and food, ivf continue to run per order, no new orders at this time.
[2020-08-25] MEDS: Benztropine Mesylate 0.5 MG TABLET PO (20:17)
[2020-08-25] MEDS: risperiDONE 1 MG TABLET PO (20:17)
[2020-08-25] MEDS: Divalproex Sodium 250 MG TABLET.DR PO (20:17)
[2020-08-25] MEDS: Mirtazapine 15 MG TABLET 22.5 MG PO (20:18)
--- NOTE | 2020-08-25 21:21 | PC.NURSE ---
pt allowed a poc to be obtained, pt also took his medications this evening, iv fluids continue to run, patient currently calm/sleeping, will continue to monitor.
[2020-08-26] VITALS (17 sets, daily range): BP systolic 106–153; BP diastolic 63–99; PULSE 14–105; RESP 14–20; TEMP 36.3–37.4; O2SAT 93–100
[2020-08-26 00:22] LABS: Glucose, Whole Blood 101 mg/dL (60-115)
--- NOTE | 2020-08-26 06:22 | PC.NURSE ---
PATIENT SLEPT MOST OF THE NIGHT ,PATIENT DID NOT HAD ANY BOWEL MOVEMENT OF MY SHIFT
[2020-08-26 06:28] LABS: Glucose, Whole Blood 85 mg/dL (60-115)
[2020-08-26] MEDS: Dextrose 5 % and 0.45 % NaCl 1,000 ML 100 ML IVCONT ×2 (07:24→15:50)
--- NOTE | 2020-08-26 07:32 | PC.NURSE ---
pt is a/o x 1, pt knew his name. no sob/jeremías noted skin pink warm dry. senior commercial loan officer at bedside, pt speaks in incoherent sentences at times. denies any si/hi at this time. aware.
--- NOTE | 2020-08-26 07:50 | PC.NURSE ---
pt has adamantly refused his breakfast x 3. d51/2ns continues to infuse at this time. aware.
[2020-08-26 11:55] LABS: Glucose, Whole Blood 123 mg/dL (60-115)
--- NOTE | 2020-08-26 13:53 | PC.NURSE ---
Addendum entered by Jenn Rodriguez 08/26/20 14:01: Late entry- occurred at approx 1315, late entry. pt now resting in bed, no distress noted. Original Note: Attempts by several staff members to encourage po intake, pt refusing, becoming increasingly agitated, attempted to give prn medications, declined. Pt attempting to hit staff, refusing vs. Pt requesting to be left alone, environmental stimuli decreased, verbal reassurance given. will continue to monitor.
--- NOTE | 2020-08-26 13:57 | PC.NURSE ---
late entry aprox 1315 pct in room to check for incontinence and feed patient lunch. pt refused food and disallowed pct to look on sheets for moisture. pad under pt was removed and was dry. this rn spoke to pt in italian and asked what he'd like to eat and if IV could be checked. Pt refused all interventions and swatted and staff yelling no . Fluids are infusing.
[2020-08-26] MEDS: LORazepam 2 MG/ML VIAL 1 MG IM (14:50)
--- NOTE | 2020-08-26 14:53 | PC.NURSE ---
Pt very agitated, attempting to hit staff, uncooperative and confused, only oriented to person, screaming in [place] repeatatively
[2020-08-26 15:19] LABS: MANUAL DIFF FLAG NO
[2020-08-26 15:23] LABS: Basophils Percent Auto 0.6 % (0-2); Eosinophils Percent Auto 0.6 % (0-4); Hematocrit 40.3 % (42-52); Hemoglobin 13.7 g/dl (14.0-18.0); Imm Gran Abs Auto 0.01 X10*3/uL (0.00-0.03); Imm Gran Pct Auto 0.2 % (0.0-0.4); Lymphocytes Absolute Auto 1.3 X10*3/uL (1.2-4.9); Lymphocytes Percent Auto 26.8 % (20-40); Mean Corpuscular Hemoglobin 31.2 pg (27.0-33.0); Mean Corpuscular Volume 91.8 fL (80-98); Mean Platelet Volume 7.9 fL (9.4-12.4); Monocytes Absolute Auto 0.6 X10*3/uL (0.1-1.2); Monocytes Percent Auto 13.2 % (2-11); Neutrophils Absolute Auto 2.8 X10*3/uL (2.0-8.3); Neutrophils Percent Auto 58.6 % (45-73); Platelet Count 255 X10*3/uL (160-400); Red Blood Count 4.39 X10*6/uL (4.60-5.80); Red Cell Distribution Width 13.3 % (11.0-16.0); White Blood Count 4.8 X10*3/uL (4.8-10.8)
--- NOTE | 2020-08-26 15:29 | PC.NURSE ---
P[t required medication restraint r/t pulling on IV, attempting to hit staff. + effect of medication admin, pt much calmer, no longer attempting to hit staff, compliant with linen change and cassidy care.
[2020-08-26 15:31] LABS: Appearance Urine CLOUDY; Color Urine YELLOW
[2020-08-26 15:32] LABS: Glucose Urine UA NEG (NEG); Leukocyte Esterase Urine 3+ (NEG); Nitrite Urine NEG (NEG); Urine Blood NEG (NEG); Urine Ketones NEG (NEG); Urine Protein NEG (NEG-TRACE)
[2020-08-26 15:34] LABS: Bacteria Urine 2+ /LPF; RBC Urine 0 /HPF (0); WBC Urine 30-49 /HPF (0-4)
[2020-08-26 15:57] LABS: Alanine Aminotransferase 11 U/L (0-40); Albumin Level 3.9 g/dL (3.5-5.0); Alkaline Phosphatase 79 U/L (39-117); Anion Gap 16 (12-20); Aspartate Amino Transferase 22 U/L (5-37); Bilirubin Total 0.5 mg/dL (0.0-1.0); Blood Urea Nitrogen 5 mg/dL (9-16); Calcium 8.7 mg/dL (8.4-10.2); Carbon Dioxide 22 mmol/L (22-29); Chloride 102 mmol/L (96-108); Creatinine Clr Calc Pharmacy 74.6; Estimated Glomerular Filt Rate > 60; Glucose Random 99 mg/dL (60-115); Potassium 4.1 mmol/l (3.3-5.1); Sodium 136 mmol/L (135-145); Total Protein 6.7 g/dL (6.5-8.0)
[2020-08-26] MEDS: Divalproex Sodium 250 MG TABLET.DR PO ×2 (15:58→22:52)
--- NOTE | 2020-08-26 18:16 | PC.NURSE ---
PerDr. cristi navarro for q4hr poc.
[2020-08-26 19:16] LABS: Glucose, Whole Blood 139 mg/dL (60-115)
--- NOTE | 2020-08-26 19:54 | PC.NURSE ---
late entry- at 1845 pt found to be covered in own feces, given total bed bath, changed line and gown, repositioned to l side. Pt tolerated well, slight agitation but cooperative. Taking frequent sips of water w/ prompting
--- NOTE | 2020-08-26 19:56 | PC.NURSE ---
late entry- at 1600 pt ate at least 5 packets of crackers w/ butter, several ojs, and water. tolerated well. encouraged po intake, declined other options
[2020-08-26 22:51] LABS: Glucose, Whole Blood 90 mg/dL (60-115)
[2020-08-26] MEDS: Benztropine Mesylate 0.5 MG TABLET PO (22:51)
[2020-08-26] MEDS: Mirtazapine 15 MG TABLET 22.5 MG PO (22:53)
[2020-08-26] MEDS: risperiDONE 1 MG TABLET PO (22:53)
--- NOTE | 2020-08-26 22:53 | PC.NURSE ---
pt takes pills when put in crackers w/ butter.
--- NOTE | 2020-08-26 22:55 | PC.NURSE ---
pt refused dinner earlier for this rn but ate approx 8 crackers w/ butter and 2 8oz cups of water. when offered other options but declines. pt changed and cassidy care provided for incont of urine
[2020-08-27] VITALS (16 sets, daily range): BP systolic 150–180; BP diastolic 81–104; PULSE 88–97; RESP 14–22; TEMP 36.7–37.1; O2SAT 96–98
--- NOTE | 2020-08-27 00:33 | PC.NURSE ---
WET GOWN AND LINEN CHANGED, PT REPOSITIONED. PT HYDRATING WITH WATER. PT REFUSED OATMEAL AND MILK. PT GIVEN 6-8 SALTINES WITH BUTTER AND ATE ALL OF THEM. PT HAS NOT BEEN FINISHING MEALS, PER JANNY FLANAGAN. CARE TAKEN OVER BY THIS RN AT 23:00.
[2020-08-27] MEDS: Dextrose 5 % and 0.45 % NaCl 1,000 ML 100 ML IVCONT ×2 (02:16→12:20)
--- NOTE | 2020-08-27 02:55 | PC.NURSE ---
wet linen changed, pt took 2-3 sips of water, refused applesauce or crackers. poc 108.
[2020-08-27 02:57] LABS: Glucose, Whole Blood 108 mg/dL (60-115)
[2020-08-27] MEDS: risperiDONE 0.5 MG TABLET PO (03:26)
--- NOTE | 2020-08-27 03:28 | PC.NURSE ---
pt given 0.5 respiridone for agitation. requested order for IM Ativan, in case pt wouldn't take tablet. fire control system installer at bedside, pt screaming in stateless that he wants to leave. pt initially refusing to eat or take tablet. pt did take tablet, will re evaluate need for ativan in 30 minutes.
--- NOTE | 2020-08-27 04:43 | PC.NURSE ---
pt thought there was a man in his room with a knife, that's why he was yelling out. following resperidal, pt has been able to fall asleep at times. pt still wakes and yells out infrequently.
--- NOTE | 2020-08-27 05:37 | PC.NURSE ---
linen and gown changed, urinary incontinence.
[2020-08-27] MEDS: risperiDONE 1 MG TABLET PO (09:03)
[2020-08-27] MEDS: DULoxetine HCl 60 MG CAPSULE.DR PO (09:03)
[2020-08-27] MEDS: Topiramate 25 MG TABLET 50 MG PO (09:03)
[2020-08-27] MEDS: Benztropine Mesylate 0.5 MG TABLET PO (09:03)
[2020-08-27] MEDS: Aspirin Enteric Coated 81 MG TABLET.DR PO (09:03)
[2020-08-27] MEDS: Divalproex Sodium 250 MG TABLET.DR PO (09:03)
--- NOTE | 2020-08-27 09:36 | PC.NURSE ---
pt attempted to urinate in urinal. urinated on bed. cleaned and linen changed.
--- NOTE | 2020-08-27 13:50 | PC.NURSE ---
pt incontinent. pt cleaned and bathed. linen changed. pt repositioned. started screaming when lunch tray placed in room. refusing crackers and water. only wanting more warm blankets. given.
[2020-08-27 13:58] LABS: Glucose, Whole Blood 129 mg/dL (60-115)
--- NOTE | 2020-08-27 14:29 | PC.NURSE ---
pt sleeping at this time. resp even and unlabored.
[2020-08-27 20:38] LABS: Glucose, Whole Blood 93 mg/dL (60-115)
--- NOTE | 2020-08-27 20:48 | PC.NURSE ---
patient refusing meds at this time. keeping blanket over head. yelling at this nurse in bahraini.
--- NOTE | 2020-08-27 21:09 | PC.NURSE ---
PATIENT LINENS CHANGED AFTER BEING SOILED WITH URINE. PATIENT NON-COOPERATIVE DURING LINEN CHANGING. SWINGING AT STAFF. NO QUIERO, NO QUIERO. UNABLE TO REDIRECT PATIENT. CONTINUES TO REFUSE MEDS AND ANYTHING TO EAT OR DRINK.
--- NOTE | 2020-08-27 21:25 | PC.NURSE ---
OFFERED PATIENT CRACKERS WITH BUTTER. ENSURE, MEAL TRAY. CONTINUES TO PUT BLANKET OVER HEAD AND SCREAMING. SPOKE WITH DR ESTEVES. PLAN TO CHECK ORDERS. ?CONSULT FOR PSYCH.
--- NOTE | 2020-08-27 21:32 | PC.NURSE ---
CALLED AND SPOKE WITH CARE TEAM. UNABLE TO FIND ANY DOCUMENTATION THAT HE WAS SEEN FOR THE PSYCH CONSULT ORDERED 3 DAYS AGO. VALERIE WILL LOOK AND SEE WHAT SHE CAN FIND AT THIS TIME PATIENT CONTINUES TO SCREAM OUT, REFUSE TO WEAR ANY CLOTHING, KEEPING A BLANKET OVER HEAD AND SWING AT ANY STAFF WHEN THEY COME NEAR HIM.
[2020-08-27] MEDS: LORazepam 2 MG/ML VIAL IM (21:58)
--- NOTE | 2020-08-27 21:58 | PC.NURSE ---
MEDICATED CHARTED FOR BEHAVIORS.. DID NOT SWING AT STAFF WHILE BEING MEDICATED. GIVEN OPTION TO TAKE PO MEDICATIONS FIRST. EXPLAINED THAT HE WILL GET AN INJECTION IF HE DOES NOT TAKE HIS PO MEDS.
--- NOTE | 2020-08-27 22:07 | PC.NURSE ---
CALLED AND SPOKE WITH VALERIE ON CARE TEAM. ORDER FOR CONSULT PRINTED TO THEM AT THIS TIME.
--- NOTE | 2020-08-27 22:26 | PC.NURSE ---
CONTINUES TO YELL OUT AND REFUSE MEDS. THREW FOOD ON FLOOR.
--- NOTE | 2020-08-27 23:58 | PC.NURSE ---
SLEEPING AT THIS TIME. NO APPARENT DISTRESS. BREATHING EVEN, NON-LABORED.
[2020-08-28] VITALS (9 sets, daily range): BP systolic 128–140; BP diastolic 57–75; PULSE 74–88; RESP 14–22; O2SAT 97–98
[2020-08-28 00:01] LABS: Glucose, Whole Blood 83 mg/dL (60-115)
[2020-08-28 01:09] LABS: Glucose, Whole Blood 117 mg/dL (60-115)
[2020-08-28 05:21] LABS: Glucose, Whole Blood 64 mg/dL (60-115)
--- NOTE | 2020-08-28 08:00 | CT_ITS ---
EXAMINATION: CT CHEST WITHOUT CONTRAST CLINICAL INFORMATION: Positive Covid Swab 10 days ago. No symptoms. COMPARISON: Chest x-ray 07/06/2020 and 05/24/2020 TECHNIQUE: Multidetector volumetric CT imaging of the chest was done. Axial MIP volume rendering provided. Sagittal and coronal reformatted images were obtained. Patient was imaged left side down. This CT examination was performed using dose optimization techniques as appropriate, variously including the following: *Automated exposure control *Adjustment of mA and/or kV according to patient size (this includes techniques or standardized protocols for targeted exams where dose is matched to indication/reason for exam; i.e. extremities or head) *Use of iterative reconstruction technique DLP: 257 mGy-cm FINDINGS: Patient was scanned in left lateral decubitus view. PRINCIPAL TRAINER: Well-expanded lungs. LUNGS: There is slightly decreased left lung volume secondary to dependent position during scanning. The right lung is expanded well. There is bandlike atelectasis or scarring laterally along the left lower lobe. No pulmonary consolidation, mass or nodule seen. MEDIASTINUM: The heart size and pulmonary vascularity is normal. There are coronary artery calcifications. The central trachea and bronchi are widely patent. Visualized thyroid lobes are symmetrical and normal. Heart size and the great vessels are normal caliber. No pericardial effusion seen. PLEURA: There is no pleural effusion. No pleural mass or thickening. AXILLA: No lymphadenopathy. UPPER ABDOMEN: Visualized liver, spleen, pancreas and bilateral adrenal glands are unremarkable. OSSEOUS STRUCTURES: There is mild spurring and ventral spondylosis upper and mid dorsal spine. No lytic or sclerotic process seen. CT/CT chest wo con IMPRESSION: Decreased left lung volume with left lower lobe bandlike subpleural atelectasis or scarring extending in a craniocaudad length. No acute pneumonic consolidation. No focal nodules or mass seen.
[2020-08-28 08:06] LABS: Glucose, Whole Blood 67 mg/dL (60-115)
--- NOTE | 2020-08-28 09:59 | MHC.CARE ---
CARE Team spoke with M5 and verified Pt still has a pending pysch consult from 08/24
--- NOTE | 2020-08-28 10:17 | PC.NURSE ---
refused vs and morning meds, refused breakfast, immediately covers his head w covers when spoken to , bob here to see teresa miller
[2020-08-28 10:24] LABS: COVID-19 Test Negative (Negative); IDNOW Serial# 9DD0AD1C
[2020-08-28] MEDS: Dextrose 5 % and 0.45 % NaCl 1,000 ML 125 ML IVCONT (10:39)
--- NOTE | 2020-08-28 10:54 | PC.NURSE ---
UNABLE TO GET LABS, PT THRASHING IN BED W ATTEMPT, WILL TRY AGAIN IN NEXT HOUR
[2020-08-28 11:40] LABS: MANUAL DIFF FLAG NO
[2020-08-28 11:43] LABS: Basophils Percent Auto 0.4 % (0-2); Eosinophils Absolute Auto 0.2 X10*3/uL (0.0-0.4); Eosinophils Percent Auto 3.7 % (0-4); Hematocrit 38.7 % (42-52); Hemoglobin 13.1 g/dl (14.0-18.0); Imm Gran Abs Auto 0.02 X10*3/uL (0.00-0.03); Imm Gran Pct Auto 0.4 % (0.0-0.4); Lymphocytes Absolute Auto 1.5 X10*3/uL (1.2-4.9); Lymphocytes Percent Auto 29.6 % (20-40); Mean Corpuscular HGB Conc 33.9 g/dl (31.0-36.0); Mean Corpuscular Hemoglobin 31.1 pg (27.0-33.0); Mean Corpuscular Volume 91.9 fL (80-98); Mean Platelet Volume 8.1 fL (9.4-12.4); Monocytes Absolute Auto 0.7 X10*3/uL (0.1-1.2); Monocytes Percent Auto 14.7 % (2-11); Neutrophils Absolute Auto 2.5 X10*3/uL (2.0-8.3); Neutrophils Percent Auto 51.2 % (45-73); Platelet Count 241 X10*3/uL (160-400); Red Blood Count 4.21 X10*6/uL (4.60-5.80); Red Cell Distribution Width 13.6 % (11.0-16.0); White Blood Count 4.9 X10*3/uL (4.8-10.8)
[2020-08-28 12:12] LABS: Alanine Aminotransferase 13 U/L (0-40); Albumin Level 3.6 g/dL (3.5-5.0); Alkaline Phosphatase 79 U/L (39-117); Anion Gap 12 (12-20); Aspartate Amino Transferase 17 U/L (5-37); Bilirubin Direct 0.2 mg/dL (0.0-0.5); Bilirubin Total 0.5 mg/dL (0.0-1.0); Blood Urea Nitrogen 4 mg/dL (9-16); Calcium 8.7 mg/dL (8.4-10.2); Carbon Dioxide 23 mmol/L (22-29); Chloride 105 mmol/L (96-108); Creatinine Clr Calc Pharmacy 68.3; Estimated Glomerular Filt Rate > 60; Glucose Random 107 mg/dL (60-115); Magnesium 1.9 mg/dL (1.6-2.6); Potassium 3.5 mmol/l (3.3-5.1); Sodium 136 mmol/L (135-145)
--- NOTE | 2020-08-28 13:39 | MHC.CARE ---
CARE Team spoke with Tano regarding bed search- Pt is currently be reviewed by [facility]
--- NOTE | 2020-08-28 14:15 | PC.NURSE ---
this RN spoke with Juliet from [facility], Juliet request updated pt information to be sent to potential place of admission for patient. updated summary sent per request.
--- NOTE | 2020-08-28 15:07 | PC.NURSE ---
PER DR CASON'S REQUEST I CONTACTED THE SNF AND THEY DO NOT HAVE A COPY OF A LILLIE'S ODER, IT IN january AND BECAUSE OF cOVID THEY HAVE BEEN UNABLE TO GET A NEW ONE
--- NOTE | 2020-08-28 16:36 | PC.NURSE ---
pt withdraws and yells no when this rn attempts vs. pt has strong regular radial pulse at approx 80 with nonlabored resps at approx 16 pt has wpd skin,and is resting comfortably in L side lying position.
--- NOTE | 2020-08-28 18:16 | PC.NURSE ---
pt has been incontinent of usrine, bedding changes and pt cleaned. elsa whitehead provided and pt agrees to piter yancey but remains nonverbal.
--- NOTE | 2020-08-28 20:24 | PC.NURSE ---
pt moved closer to nursing station. pt screaming refusing to take medications at this time. pt putting gown over his head.
[2020-08-28] MEDS: LORazepam 2 MG/ML VIAL IM (20:35)
--- NOTE | 2020-08-28 20:39 | PC.NURSE ---
PATIENT AGITATED. YELLING OUT, NO QUIERO, NO QUIERO REFUSING PO MEDS. WILL NOT TAKE FOOD OR FLUIDS. PULLING ON IV TUBING. OFFERED 2100 MEDS AT THIS TIME. REFUSING THESE MEDS. SWINGING AT STAFF. MEDICATED WITH THREE STAFF MEMBER HOLDING PATIENT FOR MEDICATION.
--- NOTE | 2020-08-28 22:10 | PC.NURSE ---
RESTING PEACEFULLY. BREATHING EVEN, NON-LABORED. NO APPARENT DISTRESS.
[2020-08-29] VITALS: RESP 18
[2020-08-29 02:00] VITALS: BP 168/103; PULSE 88; RESP 18; O2SAT 97
--- NOTE | 2020-08-29 02:48 | PC.NURSE ---
Patient changed and bed linens changed. patient ate some crackers and drank a sip of gingerale. We offered him a banana and patient accepted.
[2020-08-29 04:00] VITALS: BP 140/79; PULSE 87; RESP 18; O2SAT 97
--- NOTE | 2020-08-29 04:21 | PC.NURSE ---
Patient ate 4 packages of crackers as well as a banana. He drank 2 gingerale as well as drank a container of water.
[2020-08-29 04:35] LABS: Glucose, Whole Blood 97 mg/dL (60-115)
[2020-08-29 04:48] LABS: Glucose, Whole Blood 73 mg/dL (60-115)
--- NOTE | 2020-08-29 04:51 | PC.NURSE ---
Patient began eating this morning and drinking. Blood sugar of 70 after 2 gingerale, 2 singh containers of water, 1 orange juice, a banana and crackers. Patient's order for 1/2 D5W drip was discontinued. I asked the provider to renew the order so that in case patient stopped eating again he would not have a low blood sugar. Per provider that order would have to be dealt with in the morning because she was not familiar with the patient.
[2020-08-29 06:00] VITALS: BP 135/84; PULSE 90; RESP 18; TEMP 36.6; O2SAT 98
--- NOTE | 2020-08-29 07:56 | PM.PSYCN ---
History of Present Illness Chief Complaint: CRISIS Reason for Consult: Medication management Requesting physician: Jl Degroot Discussed with referring provider: Yes Sources of Information: chart reviewed and crisis/core team assessment reviewed [facility] Medical History (Updated 08/25/20 @ 00:00 by Bernard Cee) BPH with obstruction/lower urinary tract symptoms Depression Developmental delay, moderate Dysphagia Gastroesophageal reflux disease Hypercholesteremia Hypertension Metabolic encephalopathy Mood disorder Parkinson's disease Schizophrenia Tubular adenoma of colon Type 2 diabetes mellitus with hyperglycemia Vitamin D deficiency Surgical History (Updated 07/07/20 @ 12:59 by Mila Ortega [facility]) History of circumcision History of colonoscopy History of prostate surgery Diagnostics Vital Signs (24Hr): Vital Signs - 24 hr 08/28/20 08:04 08/28/20 20:35 08/28/20 20:50 Temperature Pulse Rate 74 Respiratory Rate 17 22 H 18 Blood Pressure Pulse Oximetry 98 08/28/20 21:05 08/28/20 21:20 08/28/20 21:35 Temperature Pulse Rate Respiratory Rate 18 16 14 Blood Pressure Pulse Oximetry 08/29/20 00:00 08/29/20 02:00 08/29/20 04:00 Temperature Pulse Rate 88 87 Respiratory Rate 18 18 18 Blood Pressure 168/103 H 140/79 H Pulse Oximetry 97 97 08/29/20 06:00 Temperature 97.8 F Pulse Rate 90 Respiratory Rate 18 Blood Pressure 135/84 Pulse Oximetry 98 Body Mass Index 24.0 Labs Results: 08/28/20 11:35 08/28/20 11:35 Labs: Laboratory Results - last 48 hr 08/27/20 08/27/20 08/27/20 07:40 13:54 20:45 WBC RBC Hgb Hct MCV MCH MCHC RDW Plt Count MPV Immature Gran % (Auto) Neut % (Auto) Lymph % (Auto) [place] % (Auto) Eos % (Auto) Baso % (Auto) Lymph # (Auto) [place] # (Auto) Eos # (Auto) Baso # (Auto) Abs Immat Gran (auto) Absolute Neuts (auto) Absolute Nucleated RBC Nucleated RBC % (auto) Sodium Potassium Chloride Carbon Dioxide Anion Gap BUN Creatinine Estim Creat Clear Calc Estimated GFR POC Glucose 93 129 H 83 Random Glucose Calcium Magnesium Total Bilirubin Direct Bilirubin AST ALT Alkaline Phosphatase Total Protein Albumin COVID-19 (MICHELLE) COVID-19 Clin Com 08/28/20 08/28/20 08/28/20 01:04 04:59 08:01 WBC RBC Hgb Hct MCV MCH MCHC RDW Plt Count MPV Immature Gran % (Auto) Neut % (Auto) Lymph % (Auto) [place] % (Auto) Eos % (Auto) Baso % (Auto) Lymph # (Auto) [place] # (Auto) Eos # (Auto) Baso # (Auto) Abs Immat Gran (auto) Absolute Neuts (auto) Absolute Nucleated RBC Nucleated RBC % (auto) Sodium Potassium Chloride Carbon Dioxide Anion Gap BUN Creatinine Estim Creat Clear Calc Estimated GFR POC Glucose 117 H 64 67 Random Glucose Calcium Magnesium Total Bilirubin Direct Bilirubin AST ALT Alkaline Phosphatase Total Protein Albumin COVID-19 (MICHELLE) COVID-19 [employer] 08/28/20 08/28/20 08/28/20 09:49 11:35 11:35 WBC 4.9 RBC 4.21 L Hgb 13.1 L Hct 38.7 L MCV 91.9 MCH 31.1 MCHC 33.9 RDW 13.6 Plt Count 241 MPV 8.1 L Immature Gran % (Auto) 0.4 Neut % (Auto) 51.2 Lymph % (Auto) 29.6 [place] % (Auto) 14.7 H Eos % (Auto) 3.7 Baso % (Auto) 0.4 Lymph # (Auto) 1.5 [place] # (Auto) 0.7 Eos # (Auto) 0.2 Baso # (Auto) 0.0 Abs Immat Gran (auto) 0.02 Absolute Neuts (auto) 2.5 Absolute Nucleated RBC 0.000 Nucleated RBC % (auto) 0.0 Sodium 136 Potassium 3.5 Chloride 105 Carbon Dioxide 23 Anion Gap 12 BUN 4 L Creatinine 0.83 Estim Creat Clear Calc 68.3 Estimated GFR > 60 POC Glucose Random Glucose 107 Calcium 8.7 Magnesium 1.9 Total Bilirubin 0.5 Direct Bilirubin 0.2 AST 17 ALT 13 Alkaline Phosphatase 79 Total Protein 6.0 L Albumin 3.6 COVID-19 (MICHELLE) Negative COVID-19 [employer] Com See Note 08/28/20 08/29/20 17:53 04:35 WBC RBC Hgb Hct MCV MCH MCHC RDW Plt Count MPV Immature Gran % (Auto) Neut % (Auto) Lymph % (Auto) [place] % (Auto) Eos % (Auto) Baso % (Auto) Lymph # (Auto) [place] # (Auto) Eos # (Auto) Baso # (Auto) Abs Immat Gran (auto) Absolute Neuts (auto) Absolute Nucleated RBC Nucleated RBC % (auto) Sodium Potassium Chloride Carbon Dioxide Anion Gap BUN Creatinine Estim Creat Clear Calc Estimated GFR POC Glucose 97 73 Random Glucose Calcium Magnesium Total Bilirubin Direct Bilirubin AST ALT Alkaline Phosphatase Total Protein Albumin COVID-19 (MICHELLE) COVID-19 Clin Com Imaging Radiology Impressions: ITS Impressions Abdomen/Pelvis CT 08/24/20 13:43 IMPRESSION: 1. No CT evidence of kidney stones to explain patient's right flank pain. 2. There is a 7 mm structure protruding from the anterior cortex middle pole left kidney, the attenuation of which is higher than expected for a simple cyst; differential would include complex cyst versus renal lesion. It has newly developed since prior exam. Consider further evaluation, starting with renal ultrasound. 3. There is excess amount of stool in the colon, suggests possible constipation. 4. There is circumferential wall thickening of the distal rectum, although could be due to its incomplete distention and/or adherent stool, cannot entirely rule out rectal lesion. Correlation with clinical exam and follow up screening colonoscopy. 5. Circumferential wall thickening of the urinary bladder, also nonspecific. This can be seen in patient with cystitis cystica, chronic inflammatory and less commonly, neoplastic process. 6. Soft tissue/fluid in the left inguinal canal, probably left testicular hydrocele. Renal Ultrasound 08/25/20 16:21 IMPRESSION: The tiny left renal mass seen on the CT scan could not be imaged on the ultrasound study due to technical limitations. However, I do believe that this was present in 2016 increasing only a millimeter in size over nearly 4 year's time. Given its tiny size is most likely represents a small hyperattenuating cyst. Given the very slow progression I think a follow-up study in one year is reasonable. Another benign cyst is also present on the left which was seen on the CT scan. Chest CT 08/28/20 08:00 IMPRESSION: Decreased left lung volume with left lower lobe bandlike subpleural atelectasis or scarring extending in a craniocaudad length. No acute pneumonic consolidation. No focal nodules or mass seen. Medications Medications Current Medications Generic Name Dose Route Start Last Admin Trade Name Freq PRN Reason Stop Dose Admin Acetaminophen 650 mg 08/19/20 12:19 11/23/20 20:51 Acetaminophen 325 Mg Tablet PO 650 mg Q8H PRN Administration fever or pain Aspirin 81 mg 08/20/20 09:00 08/28/20 10:09 Aspirin Enteric Coated 81 Mg Tablet. PO Not Given DAILY [facility] Benztropine Mesylate 0.5 mg 08/19/20 21:00 08/28/20 21:27 Benztropine Mesylate 0.5 Mg Tablet PO Not Given BID [facility] Calcium Carbonate 750 mg 08/19/20 13:25 Calcium Carbonate 750 Mg Tab.Chew PO DAILY PRN Indigestion Docusate Sodium 100 mg 08/19/20 12:19 Docusate Sodium 100 Mg Capsule PO BID PRN constipation Duloxetine HCl 60 mg 08/20/20 09:00 08/28/20 10:09 Duloxetine Hcl 60 Mg Capsule. PO Not Given DAILY [facility] Mirtazapine 22.5 mg 08/19/20 21:00 08/28/20 21:27 Mirtazapine 15 Mg Tablet PO Not Given BEDTIME [facility] Pharmacy Consult 1 each 08/18/20 14:46 Consult Rx Perform Med Rec MISCELLANE ONCE PRN Consult order Psyllium Hydrophilic Mucilloid 3.4 gm 08/22/20 09:00 Psyllium Seed 3.4 Gm Powd.Pack PO DAILY PRN Constipation Risperidone 1 mg 08/19/20 21:00 08/28/20 21:27 Risperidone 1 Mg Tablet PO Not Given BID [facility] Risperidone 1 mg 08/29/20 07:52 Risperidone Oral Alcira 1 Mg/Ml Solution PO RQ6H PRN anxiety/restlessness Topiramate 50 mg 08/20/20 09:00 08/28/20 10:09 Topiramate 25 Mg Tablet PO Not Given DAILY [facility] Valproic Acid 250 mg 08/29/20 09:00 Valproic Acid (As Sodium Salt) 250 Mg/5 Ml Solution PO DAILY [facility] Valproic Acid 500 mg 08/29/20 21:00 Valproic Acid (As Sodium Salt) 250 Mg/5 Ml Solution PO BEDTIME [facility] Allergies Allergies Allergy/AdvReac Type Severity Reaction Status Date / Time perfume Allergy Intermediate ITCHING Verified 08/15/20 15:18 Assessment & Plan Greater than 50% of the session was spent on counseling and/or coordination of care
--- NOTE | 2020-08-29 08:14 | PC.NURSE ---
dr dial changed rispiradone and depakene to liquid, states we cannot force the pt to take without a [employer] order, try best to cajole
[2020-08-29 08:22] LABS: Glucose, Whole Blood 119 mg/dL (60-115)
[2020-08-29] MEDS: Topiramate 25 MG TABLET 50 MG PO (08:29)
[2020-08-29] MEDS: Benztropine Mesylate 0.5 MG TABLET PO (08:30)
[2020-08-29] MEDS: Aspirin Enteric Coated 81 MG TABLET.DR PO (08:30)
[2020-08-29] MEDS: DULoxetine HCl 60 MG CAPSULE.DR PO (08:30)
--- NOTE | 2020-08-29 08:38 | PC.NURSE ---
Pt took all AM meds crushed in apple sauce. did not give risperdol as it was given around 430 this morning per previous nurses notes.
--- NOTE | 2020-08-29 09:00 | P.CNPS_ITS ---
History of Present Illness Date of Service: 08/28/20 Chief Complaint: CRISIS Reason for Consult: Med Mx consult. Pt has long Hx of schizophrenia with devl delay. Resident of [facility] long-term. Increase in PI. anger, belligerence. Was recent DC from [facility]. L-dopa was DCd, Unclear ppt. Lopez has lapsed. Pt on Risp and Depakote Requesting physician: Jl Degroot Discussed with referring provider: Yes Sources of Information: patient interviewed, chart reviewed and crisis/core team assessment reviewed HPI Past Psychiatric History: See above Medical Evaluation Reviewed: Yes Personal & Social History: Lives in [facility] supported home. Able to return Review of Systems Review of Systems Yes Unobtainable due to mental status [facility] Medical History (Updated 08/25/20 @ 00:00 by Bernard Cee) BPH with obstruction/lower urinary tract symptoms Depression Developmental delay, moderate Dysphagia Gastroesophageal reflux disease Hypercholesteremia Hypertension Metabolic encephalopathy Mood disorder Parkinson's disease Schizophrenia Tubular adenoma of colon Type 2 diabetes mellitus with hyperglycemia Vitamin D deficiency Surgical History (Updated 07/07/20 @ 12:59 by Mila Ortega [facility]) History of circumcision History of colonoscopy History of prostate surgery Family History: Not Known. Bro suicide Diagnostics Vital Signs (24Hr): Vital Signs - 24 hr 08/28/20 20:35 08/28/20 20:50 08/28/20 21:05 Temperature Pulse Rate Respiratory Rate 22 H 18 18 Blood Pressure Pulse Oximetry 08/28/20 21:20 08/28/20 21:35 08/29/20 00:00 Temperature Pulse Rate Respiratory Rate 16 14 18 Blood Pressure Pulse Oximetry 08/29/20 02:00 08/29/20 04:00 08/29/20 06:00 Temperature 97.8 F Pulse Rate 88 87 90 Respiratory Rate 18 18 18 Blood Pressure 168/103 H 140/79 H 135/84 Pulse Oximetry 97 97 98 Body Mass Index 24.0 Labs Results: 08/28/20 11:35 08/28/20 11:35 Labs: Laboratory Results - last 48 hr 08/27/20 08/27/20 08/27/20 07:40 13:54 20:45 WBC RBC Hgb Hct MCV MCH MCHC RDW Plt Count MPV Immature Gran % (Auto) Neut % (Auto) Lymph % (Auto) [place] % (Auto) Eos % (Auto) Baso % (Auto) Lymph # (Auto) [place] # (Auto) Eos # (Auto) Baso # (Auto) Abs Immat Gran (auto) Absolute Neuts (auto) Absolute Nucleated RBC Nucleated RBC % (auto) Sodium Potassium Chloride Carbon Dioxide Anion Gap BUN Creatinine Estim Creat Clear Calc Estimated GFR POC Glucose 93 129 H 83 Random Glucose Calcium Magnesium Total Bilirubin Direct Bilirubin AST ALT Alkaline Phosphatase Total Protein Albumin COVID-19 (MICHELLE) COVID-19 [employer] 08/28/20 08/28/20 08/28/20 01:04 04:59 08:01 WBC RBC Hgb Hct MCV MCH MCHC RDW Plt Count MPV Immature Gran % (Auto) Neut % (Auto) Lymph % (Auto) [place] % (Auto) Eos % (Auto) Baso % (Auto) Lymph # (Auto) [place] # (Auto) Eos # (Auto) Baso # (Auto) Abs Immat Gran (auto) Absolute Neuts (auto) Absolute Nucleated RBC Nucleated RBC % (auto) Sodium Potassium Chloride Carbon Dioxide Anion Gap BUN Creatinine Estim Creat Clear Calc Estimated GFR POC Glucose 117 H 64 67 Random Glucose Calcium Magnesium Total Bilirubin Direct Bilirubin AST ALT Alkaline Phosphatase Total Protein Albumin COVID-19 (MICHELLE) COVID-19 [employer] 08/28/20 08/28/20 08/28/20 09:49 11:35 11:35 WBC 4.9 RBC 4.21 L Hgb 13.1 L Hct 38.7 L MCV 91.9 MCH 31.1 MCHC 33.9 RDW 13.6 Plt Count 241 MPV 8.1 L Immature Gran % (Auto) 0.4 Neut % (Auto) 51.2 Lymph % (Auto) 29.6 [place] % (Auto) 14.7 H Eos % (Auto) 3.7 Baso % (Auto) 0.4 Lymph # (Auto) 1.5 [place] # (Auto) 0.7 Eos # (Auto) 0.2 Baso # (Auto) 0.0 Abs Immat Gran (auto) 0.02 Absolute Neuts (auto) 2.5 Absolute Nucleated RBC 0.000 Nucleated RBC % (auto) 0.0 Sodium 136 Potassium 3.5 Chloride 105 Carbon Dioxide 23 Anion Gap 12 BUN 4 L Creatinine 0.83 Estim Creat Clear Calc 68.3 Estimated GFR > 60 POC Glucose Random Glucose 107 Calcium 8.7 Magnesium 1.9 Total Bilirubin 0.5 Direct Bilirubin 0.2 AST 17 ALT 13 Alkaline Phosphatase 79 Total Protein 6.0 L Albumin 3.6 COVID-19 (MICHELLE) Negative COVID-19 Clin Com See Note 08/28/20 08/29/20 08/29/20 17:53 04:35 08:18 WBC RBC Hgb Hct MCV MCH MCHC RDW Plt Count MPV Immature Gran % (Auto) Neut % (Auto) Lymph % (Auto) [place] % (Auto) Eos % (Auto) Baso % (Auto) Lymph # (Auto) [place] # (Auto) Eos # (Auto) Baso # (Auto) Abs Immat Gran (auto) Absolute Neuts (auto) Absolute Nucleated RBC Nucleated RBC % (auto) Sodium Potassium Chloride Carbon Dioxide Anion Gap BUN Creatinine Estim Creat Clear Calc Estimated GFR POC Glucose 97 73 119 H Random Glucose Calcium Magnesium Total Bilirubin Direct Bilirubin AST ALT Alkaline Phosphatase Total Protein Albumin COVID-19 (MICHELLE) COVID-19 Clin Com Imaging Radiology Impressions: ITS Impressions Abdomen/Pelvis CT 08/24/20 13:43 IMPRESSION: 1. No CT evidence of kidney stones to explain patient's right flank pain. 2. There is a 7 mm structure protruding from the anterior cortex middle pole left kidney, the attenuation of which is higher than expected for a simple cyst; differential would include complex cyst versus renal lesion. It has newly developed since prior exam. Consider further evaluation, starting with renal ultrasound. 3. There is excess amount of stool in the colon, suggests possible constipation. 4. There is circumferential wall thickening of the distal rectum, although could be due to its incomplete distention and/or adherent stool, cannot entirely rule out rectal lesion. Correlation with clinical exam and follow up screening colonoscopy. 5. Circumferential wall thickening of the urinary bladder, also nonspecific. This can be seen in patient with cystitis cystica, chronic inflammatory and less commonly, neoplastic process. 6. Soft tissue/fluid in the left inguinal canal, probably left testicular hydrocele. Renal Ultrasound 08/25/20 16:21 IMPRESSION: The tiny left renal mass seen on the CT scan could not be imaged on the ultrasound study due to technical limitations. However, I do believe that this was present in 2016 increasing only a millimeter in size over nearly 4 year's time. Given its tiny size is most likely represents a small hyperattenuating cyst. Given the very slow progression I think a follow-up study in one year is reasonable. Another benign cyst is also present on the left which was seen on the CT scan. Chest CT 08/28/20 08:00 IMPRESSION: Decreased left lung volume with left lower lobe bandlike subpleural atelectasis or scarring extending in a craniocaudad length. No acute pneumonic consolidation. No focal nodules or mass seen. Mental Status Exam Mental Status Exam Patient Appearance: Inappropriate, Unkempt and Malodorous Patient Behavior: Uncooperative Behavior Comments: Refused interaction/interview Ability to Follow Directions: Poor Speech Pattern: Perseverating Delusions: Paranoid Ideation Thought Process: Illogical Abnormal Motor Activity Signs and Symptoms: Agitation Judgement: Poor Medications Medications Current Medications Generic Name Dose Route Start Last Admin Trade Name Freq PRN Reason Stop Dose Admin Acetaminophen 650 mg 08/19/20 12:19 08/21/20 20:51 Acetaminophen 325 Mg Tablet PO 650 mg Q8H PRN Administration fever or pain Aspirin 81 mg 08/20/20 09:00 08/29/20 08:30 Aspirin Enteric Coated 81 Mg Tablet. PO 81 mg DAILY MIRIAN Administration Benztropine Mesylate 0.5 mg 08/19/20 21:00 08/29/20 08:30 Benztropine Mesylate 0.5 Mg Tablet PO 0.5 mg BID MIRIAN Administration Calcium Carbonate 750 mg 08/19/20 13:25 Calcium Carbonate 750 Mg Tab.Chew PO DAILY PRN Indigestion Docusate Sodium 100 mg 08/19/20 12:19 Docusate Sodium 100 Mg Capsule PO BID PRN constipation Duloxetine HCl 60 mg 08/20/20 09:00 08/29/20 08:30 Duloxetine Hcl 60 Mg Capsule. PO 60 mg DAILY MIRIAN Administration Mirtazapine 22.5 mg 08/19/20 21:00 08/28/20 21:27 Mirtazapine 15 Mg Tablet PO Not Given BEDTIME [facility] Consult 1 each 08/18/20 14:46 Consult Rx Perform Med Rec MISCELLANE ONCE PRN Consult order Psyllium Hydrophilic Mucilloid 3.4 gm 08/22/20 09:00 Psyllium Seed 3.4 Gm Powd.Pack PO DAILY PRN Constipation Risperidone 1 mg 08/19/20 21:00 08/29/20 08:29 Risperidone 1 Mg Tablet PO Not Given BID MIRIAN Risperidone 1 mg 08/29/20 07:52 Risperidone Oral Alcira 1 Mg/Ml Solution PO Q6H PRN anxiety/restlessness Topiramate 50 mg 08/20/20 09:00 08/29/20 08:29 Topiramate 25 Mg Tablet PO 50 mg DAILY MIRIAN Administration Valproic Acid 250 mg 08/29/20 09:00 Valproic Acid (As Sodium Salt) 250 Mg/5 Ml Solution PO DAILY MIRIAN Valproic Acid 500 mg 08/29/20 21:00 Valproic Acid (As Sodium Salt) 250 Mg/5 Ml Solution PO BEDTIME [facility]IAN Allergies Allergies Allergy/AdvReac Type Severity Reaction Status Date / Time perfume Allergy Intermediate ITCHING Verified 08/15/20 15:18 Assessment & Plan Assessment & Plan (1) Chronic schizophrenia: Status: Acute Code(s): F20.9 - Schizophrenia, unspecified Recommendations: Clarify Marroquin Switch to Liquid Risperidone/Depakene Bed search for [facility]. Greater than 50% of the session was spent on counseling and/or coordination of care
--- NOTE | 2020-08-29 13:43 | PC.NURSE ---
MESSAGE LEFT FOR RN AT [facility]. THEY WILL CALL BACK FOR REPORT
[2020-08-29 15:28] VITALS: BP 141/86; PULSE 98; RESP 16; TEMP 37.3; O2SAT 97
== END 2020-08-29 16:15 | disposition skilled nursing facility (03) ==
PROVIDERS: Emergency Medicine Emergency Medical Services; Internal Medicine; Nurse Practitioner Family; Nurse Practitioner Primary Care; Physician Assistant Medical; Emergency Provider Emergency Medicine
DX: F20.9 Schizophrenia, unspecified (principal); R45.851 Suicidal ideations; I10 Essential (primary) hypertension; Z79.899 Other long term (current) drug therapy; Z20.828 Contact with and (suspected) exposure to other viral communicable diseases
CPT/HCPCS: 36415; 71250; 74176; 76775; 80048; 80053; 80076; 80164; 80307; 80320; 81001; 82947; 83735; 85025; 85610; 85730; 87086; 87088; 87186; 87635; 96361; 96372; 96374; 96375; 99223; 99284; 99285; J2060

== ENCOUNTER 2021-01-06 21:23 | Emergency (ER) | payer MEDICARE, MEDICAID, SELFPAY ==
--- NOTE | ~2021-01-06 | XR_ITS ---
EXAMINATION: XR CHEST CLINICAL INFORMATION: Aspiration COMPARISON: August 28, 2020 TECHNIQUE: AP portable view of the chest was obtained. FINDINGS: There is no evidence of acute parenchymal disease, pneumothorax, or pleural effusion. There are small lung volumes with minimal basilar atelectasis present. Heart normal size. No evidence of pulmonary edema. XR/XR chest 1V IMPRESSION: No acute disease.
[2021-01-06 21:40] VITALS: BP 155/88; PULSE 101; RESP 18; TEMP 36.3; O2SAT 100; BMI 26.2
[2021-01-06 22:23] LABS: Amphetamine Screen Urine Not Detected (Not Detect); Barbiturates, Urine Not Detected (Not Detect); Benzodiazepines Screen Urine Not Detected (Not Detect); Cannabinoid Screen Urine Not Detected (Not Detect); Cocaine Screen Urine Not Detected (Not Detect); Opiate Screen Urine Not Detected (Not Detect); Phencyclidine Screen Urine Not Detected (Not Detect)
[2021-01-06 22:28] LABS: COVID-19 Test Negative (Negative); IDNOW Serial# 9DD0AD1C
[2021-01-06 22:44] LABS: Glucose Urine UA NEG (NEG); Leukocyte Esterase Urine NEG (NEG); Nitrite Urine NEG (NEG); Urine Blood NEG (NEG); Urine Ketones NEG (NEG); Urine Protein NEG (NEG-TRACE)
[2021-01-06 22:45] LABS: Appearance Urine CLEAR; Color Urine YELLOW
--- NOTE | 2021-01-06 22:45 | ED_ITS ---
HPI - Psych General Chief Complaint: Psychiatric Symptoms Stated Complaint: CRISIS/SI Time Seen by Provider: 01/06/21 22:32 Source: patient, EMS and other (Caregiver) Mode of arrival: EMS Limitations: language barrier History of Present Illness HPI Narrative: 70-year-old male with past medical history of dysphagia, BPH, type 2 diabetes, history of left occipital infarct, Parkinson's disease, cognitive impairment, resides in a nursing home, hypertension, schizophrenia, incontinent of bowel and bladder, and GERD presents with suicidal ideation. Stated to his nursing home staff that he wanted to hang himself in the closet, wanted to cut himself with a knife so that he would , and is refusing to eat. [facility] staff with this patient, patient is currently sleeping. MD complaint: suicidal ideation and feels depressed Onset (ago): unknown Duration: constant History of same: Yes Relieving factors: none Associated psychiatric symptoms: depression and suicidal ideation Associated symptoms: denies other symptoms If self harm: admits thoughts of self harm Related Data Home Medications Medication Instructions Recorded Confirmed aspirin 81 mg tablet,delayed 81 mg PO DAILY 06/27/20 01/06/21 release benztropine 0.5 mg tablet 0.5 mg PO BID 06/27/20 01/06/21 mirtazapine 15 mg tablet 15 mg PO BID tab 06/27/20 01/06/21 risperidone 1 mg tablet 1 mg PO BID 08/15/20 01/06/21 acetaminophen 650 mg PO Q8H PRN 08/18/20 01/06/21 risperidone 0.5 mg PO BID PRN 08/18/20 01/06/21 carbidopa 25 mg-levodopa 100 mg 1 tab PO QID 11/23/20 01/06/21 tablet olanzapine 5 mg tablet 5 mg PO BID PRN 11/23/20 01/06/21 topiramate 50 mg tablet 100 mg PO DAILY tab 11/23/20 01/06/21 trazodone 50 mg tablet 25 mg PO BEDTIME PRN 11/23/20 01/06/21 trazodone 50 mg tablet 50 mg PO BEDTIME 11/23/20 01/06/21 duloxetine 1 cap PO QAM 01/06/21 01/06/21 gabapentin 100 mg PO TID PRN 01/06/21 01/06/21 omeprazole 20 mg PO QAM 01/06/21 01/06/21 paliperidone palmitate [Invega 117 mg IM Q4W 01/06/21 01/06/21 Sustenna] Previous Rx's Medication Instructions Recorded diaper,brief,adult,disposable #96 ea 11/23/20 gabapentin 300 mg capsule 300 mg PO BEDTIME #90 cap 12/12/20 simvastatin 10 mg tablet 10 mg PO BEDTIME #90 tab 12/12/20 tamsulosin 0.4 mg capsule 0.4 mg PO DAILY #90 cap 12/12/20 Allergies Allergy/AdvReac Type Severity Reaction Status Date / Time perfume Allergy Intermediate ITCHING Verified 08/15/20 15:18 Review of Systems Review of Systems: Yes Unobtainable due to mental status PMFSH Past Medical History Attestation statement: The following information was validated with the patient. Source: old records reviewed Medical History BPH with obstruction/lower urinary tract symptoms Depression Developmental delay, moderate Dysphagia Gastroesophageal reflux disease Hypercholesteremia Hypertension Metabolic encephalopathy Occipital infarction Parkinson's disease Schizophrenia Tubular adenoma of colon Type 2 diabetes mellitus with hyperglycemia Vitamin D deficiency Surgical History History of circumcision History of colonoscopy History of prostate surgery Family History Family History Father Type II diabetes mellitus Mother Type II diabetes mellitus Social History Social History Alcohol intake: unknown Smoking Status: Unknown if ever smoked Advance Directives: No Advance Directives Information Provided: Yes Physical Exam Vital Signs: Vital Signs: Last Vital Signs Temp 97.3 F 01/06/21 21:40 Pulse 101 H 01/06/21 21:40 Resp 18 01/06/21 21:40 BP 155/88 H 01/06/21 21:40 Pulse Ox 100 01/06/21 21:40 Body Mass Index 26.2 Appearance: Alert. Oriented X3. No acute distress. Eyes: Pupils equal, round and reactive to light. ENT: Pharynx normal. Neck: Normal inspection. Neck supple. CVS: Normal heart rate and rhythm. Pulses normal. Respiratory: No respiratory distress. Breath sounds normal. Abdomen: Soft and nontender. Skin: Skin warm and dry. Normal skin color. Normal skin turgor. Extremities: No lower extremity edema. Neuro: No motor deficit. No sensory deficit. Course Course Course Narrative: 70-year-old male with past medical history of dysphagia, BPH, type 2 diabetes, history of left occipital infarct, Parkinson's disease, cognitive impairment, resides in a nursing home, hypertension, schizophrenia, incontinent of bowel and bladder, and GERD presents with suicidal ideation. Stated to his nursing home staff that he wanted to hang himself in the closet, wanted to cut himself with a knife so that he would , and is refusing to eat. [facility] staff states that patient has been making suicidal statements since 11:00 a.m.. Multiple calls to a care provider, medication protocols followed per nursing home policy and provider recommendations, patient required multiple doses of Zyprexa and still continues with behavioral disturbance. Patient presented to the emergency room for evaluation per [facility] recommendation [facility] staff states that patient was evaluated at [facility] and discharged on January 04, 2021 for bilateral lower extremity edema. Review of records indicates the patient was treated for bilateral lower extremity edema, a suspicion of renal failure or CHF. BNP was 163, H&H 13.1/38.5, BUN 15, creatinine 0.8 and troponin T less than 0.01. No medications were added or changed during this visit. Plan of care is for CBC, Chem 7, urinalysis, GEE, and BHN consult. Physician observation initiated. MDM - Psych Differential Diagnosis Differential diagnosis: Likely suicidal ideation and depression Medical Records Attestation: I reviewed the patient's medical records. Lab Data Attestation: I reviewed the patient's lab results. Labs: Lab Results 01/06/21 01/06/21 01/06/21 Range/Units 22:01 22:01 22:38 Urine Color YELLOW Urine Appearance CLEAR Urine pH 6.0 (5.0-8.0) Ur Specific [place] 1.010 (1.005-1.025) Urine Protein NEG (NEG-TRACE) MG/DL Urine Glucose (UA) NEG (NEG) MG/DL Urine Ketones NEG (NEG) MG/DL Urine Blood NEG (NEG) Urine Nitrite NEG (NEG) Ur Leukocyte Esterase NEG (NEG) Urine Opiates Screen Not Detected (Not Detect) Ur Barbiturates Screen Not Detected (Not Detect) Ur Phencyclidine Scrn Not Detected (Not Detect) Ur Amphetamines Screen Not Detected (Not Detect) U Benzodiazepines Scrn Not Detected (Not Detect) Urine Cocaine Screen Not Detected (Not Detect) U Marijuana (THC) Screen Not Detected (Not Detect) COVID-19 (MICHELLE) Negative (Negative) COVID-19 Clin Com See Note Discharge Plan Discharge Prescriptions: No Action gabapentin 300 mg capsule 300 mg PO BEDTIME Qty: 90 RF: 3 simvastatin 10 mg tablet 10 mg PO BEDTIME Qty: 90 RF: 2 tamsulosin 0.4 mg capsule 0.4 mg PO DAILY Qty: 90 RF: 1 gabapentin 100 mg capsule 100 mg PO TID PRN (Reason: Anxiety) RF: 0 omeprazole 20 mg capsule,delayed release(DR/EC) 20 mg PO QAM RF: 0 duloxetine 20 mg capsule,delayed release(DR/EC) 1 cap PO QAM RF: 0 Invega Sustenna 117 mg/0.75 mL syringe 117 mg IM Q4W RF: 0 risperidone 0.5 mg Tablet,Disintegrating 0.5 mg PO BID PRN (Reason: Agitation) RF: 0 acetaminophen 325 mg tablet 650 mg PO Q8H PRN (Reason: fever or pain) RF: 0 risperidone 1 mg tablet 1 mg PO BID RF: 0 topiramate [Topamax] 50 mg tablet 100 mg PO DAILY RF: 0 trazodone 50 mg tablet 50 mg PO BEDTIME RF: 0 trazodone 50 mg tablet 25 mg PO BEDTIME PRN (Reason: Insomnia) RF: 0 olanzapine [Zyprexa] 5 mg tablet 5 mg PO BID PRN (Reason: Psychosis) RF: 0 carbidopa-levodopa 25-100 mg tablet 1 tab PO QID RF: 0 (DME) Briefs Medium Misc See Rx Instructions .ROUTE .MEDSUPPLY Qty: 96 RF: 8 mirtazapine 15 mg tablet 15 mg PO BID RF: 0 benztropine 0.5 mg tablet 0.5 mg PO BID RF: 0 aspirin [Adult Low Dose Aspirin] 81 mg tablet,delayed release (DR/EC) 81 mg PO DAILY RF: 0
--- NOTE | 2021-01-07 00:04 | PC.NURSE ---
SABIHA faxed/called/spoke with Sandhya, no clinician available jemma.
[2021-01-07 05:10] VITALS: BP 145/88; PULSE 91; RESP 16; TEMP 36.3; O2SAT 100
--- NOTE | 2021-01-07 05:40 | PC.NURSE ---
Patient just woke up for bathroom use, gait unsteady, ADL needs help, patient requested food offered sandwich, patient was observed choking on sandwich, Heimlich maneuver performed x 3, cleared mouthful of food, usp called/spoke with George/notified us that patient has Dysphagia hence is on pureed diet and takes his medication crushed. Provider notified/patient will be on supervise meal consumption.
[2021-01-07 06:23] LABS: MANUAL DIFF FLAG NO
[2021-01-07 06:25] LABS: Basophils Percent Auto 0.5 % (0-2); Eosinophils Absolute Auto 0.2 X10*3/uL (0.0-0.4); Hematocrit 37.6 % (42-52); Hemoglobin 12.7 g/dl (14.0-18.0); Imm Gran Abs Auto 0.01 X10*3/uL (0.00-0.03); Imm Gran Pct Auto 0.3 % (0.0-0.4); Lymphocytes Percent Auto 27.7 % (20-40); Mean Corpuscular HGB Conc 33.8 g/dl (31.0-36.0); Mean Corpuscular Hemoglobin 30.8 pg (27.0-33.0); Mean Platelet Volume 8.2 fL (9.4-12.4); Monocytes Absolute Auto 0.5 X10*3/uL (0.1-1.2); Monocytes Percent Auto 13.8 % (2-11); Neutrophils Percent Auto 53.7 % (45-73); Platelet Count 146 X10*3/uL (160-400); Red Blood Count 4.13 X10*6/uL (4.60-5.80); Red Cell Distribution Width 13.2 % (11.0-16.0); White Blood Count 3.8 X10*3/uL (4.8-10.8)
[2021-01-07 06:46] LABS: Anion Gap 12 (12-20); Blood Urea Nitrogen 16 mg/dL (9-16); Calcium 8.7 mg/dL (8.4-10.2); Carbon Dioxide 25 mmol/L (22-29); Chloride 105 mmol/L (96-108); Creatinine Clr Calc Pharmacy 61.3; Estimated Glomerular Filt Rate > 60; Glucose Random 109 mg/dL (60-115); Potassium 3.7 mmol/L (3.3-5.1); Sodium 138 mmol/L (135-145)
--- NOTE | 2021-01-07 07:32 | PC.NURSE ---
Report received from PANCHITO Bhat. Pt awake, alert. Assisted w/ eating by MHA.
--- NOTE | 2021-01-07 08:56 | PC.NURSE ---
Patient resting in bed. Yelling out intermittently.
[2021-01-07 09:12] VITALS: BP 148/89; PULSE 82; RESP 17; TEMP 36.2; O2SAT 100
[2021-01-07] MEDS: Omeprazole 20 MG CAPSULE.DR PO (09:24)
[2021-01-07] MEDS: Aspirin Enteric Coated 81 MG TABLET.DR PO (09:25)
[2021-01-07] MEDS: Carbidopa/Levodopa 25/100 TABLET 1 TAB PO ×4 (09:25→20:40)
[2021-01-07] MEDS: Mirtazapine 15 MG TABLET PO ×2 (09:26→20:40)
[2021-01-07] MEDS: Benztropine Mesylate 0.5 MG TABLET PO ×2 (09:26→20:40)
[2021-01-07] MEDS: risperiDONE 1 MG TABLET PO ×2 (09:27→20:40)
[2021-01-07] MEDS: Topiramate 100 MG TABLET PO (09:28)
[2021-01-07] MEDS: Tamsulosin HCL 0.4 MG CAPSULE PO (09:29)
--- NOTE | 2021-01-07 11:43 | PC.NURSE ---
Late entry: 899- pt evaluated w/ bilingual interpreter. Pt states he slept well, reports continued sadness, depression. Pt is confused, oriewnted to person, but not place or time.
--- NOTE | 2021-01-07 11:54 | PC.NURSE ---
BHN in to evaluate. Pt assisted out of room, toileted prior to BHN arrival. Pt voided on toilet.
--- NOTE | 2021-01-07 13:02 | PC.NURSE ---
Pt ate full meal w/ assistance. Pt seen by N, will be referred to care management. Pt requires assistance eating, and w/ ambulation.
[2021-01-07 14:00] VITALS: RESP 18
--- NOTE | 2021-01-07 14:16 | PC.NURSE ---
Patient currently sleeping. Respirations even and unlabored. No distress observed.
--- NOTE | 2021-01-07 15:17 | PC.NURSE ---
Pt awake, assisted to bathroom, deputy district customs director present, pt re-oriented to place w/ deputy district customs director present.
[2021-01-07 15:58] VITALS: BP 158/96; PULSE 95; RESP 20; TEMP 36.1; O2SAT 100
--- NOTE | 2021-01-07 16:18 | PC.NURSE ---
Patient resting in bed at this time. No distress observed at this time.
--- NOTE | 2021-01-07 17:00 | PC.NURSE ---
Pt resting in room, no concerns reported at this time.
--- NOTE | 2021-01-07 18:04 | PC.NURSE ---
Patient observed to be resting quietly in bed in room. No observed distress at this time.
--- NOTE | 2021-01-07 18:30 | PC.NURSE ---
Pt assisted w/ dinner by MHA- pt ate full meals, liquids thickened and given to pt.
--- NOTE | 2021-01-07 20:05 | PC.NURSE ---
This RN heard the tech calling for help, patient threw himself onto the back horizontal bar on the walker, the tech was balancing to hold him up. This RN helped to get him safely to the wheelchair. The patient was incontinent of urine, causing all of his clothing to be wet, attempted to transfer the patient to the bed to provide incontinent care when the patient then stood up and then while this RN and the tech were assisting he started screaming and attempting to throwing himself on the ground, patient was lowered onto the tech. Patient was then safely transferred to the wheelchair. Primary RN came over and the patient was trying to tip himself back in the wheelchair and then agreed to get into the recliner stood up on his own and incontinent care was provided.
[2021-01-07] MEDS: Gabapentin 300 MG CAPSULE PO (20:40)
[2021-01-07] MEDS: traZODone HCL 50 MG TABLET PO (20:40)
[2021-01-07] MEDS: Atorvastatin Calcium 10 MG TABLET PO (20:40)
--- NOTE | 2021-01-07 20:48 | PC.NURSE ---
PT TOOK CRUSHED MEDS WITH VANILLA PUDDING. PT UNSTEADY ON FEET AND NEEDS ASSISTANCE. PT NEEDS A PUREED DIET, WAS CHOKING ON SANDWICH WHILE IN POD. PT CLEARED BY N AND IS CASE MANAGEMENT. PT MAKES STATEMENTS FREQUENTLY AT PRISON AND IN POD THAT HE WILL HANG HIMSELF.
--- NOTE | 2021-01-07 22:43 | PC.NURSE ---
ALARM CLIPPED TO PT'S GOWN, IN CASE HE TRIES TO STAND ON HIS OWN.
--- NOTE | 2021-01-08 03:02 | PC.NURSE ---
PT REQUESTED TO LAY IN BED, ABLE TO STAND AND PIVOT. PT USED URINAL, BUT SPILLED IT. PADS AND GOWN CHANGED. PT SAT ON COMMODE WHILE LINEN CHANGED. PT THEN REFUSED TO STAND OR LET GO OF COMMODE. PT STOOD FOLLOWING 5 MINUTES ON COMMODE, THEN PLACED HIMSELF ON COMMODE. PT REQUESTING TO GO BACK TO THE POD. PT AMBULATORY WITH STEADY GAIT TO THE POD, SAT ON CHAIR AND GIVEN SNACK. PT TO RETURN TO ROOM 16 IN A FEW HOURS.
--- NOTE | 2021-01-08 06:34 | PC.NURSE ---
PT BACK IN ROOM 16.
[2021-01-08] MEDS: Mirtazapine 15 MG TABLET PO (08:17)
[2021-01-08] MEDS: Carbidopa/Levodopa 25/100 TABLET 1 TAB PO (08:17)
[2021-01-08] MEDS: risperiDONE 1 MG TABLET PO (08:17)
[2021-01-08] MEDS: Aspirin Enteric Coated 81 MG TABLET.DR PO (08:17)
[2021-01-08] MEDS: Omeprazole 20 MG CAPSULE.DR PO (08:17)
[2021-01-08] MEDS: Topiramate 100 MG TABLET PO (08:17)
[2021-01-08] MEDS: DULoxetine HCl 20 MG CAPSULE.DR PO (08:17)
[2021-01-08] MEDS: Benztropine Mesylate 0.5 MG TABLET PO (08:17)
[2021-01-08] MEDS: Tamsulosin HCL 0.4 MG CAPSULE PO (08:17)
[2021-01-08 08:21] VITALS: RESP 16
--- NOTE | 2021-01-08 08:23 | PC.NURSE ---
pt refusing to sit or lay in bed, pt curled up in reclining chair. took medication and swallowed with no trouble. pct at bedside helping feed pt.
--- NOTE | 2021-01-08 08:35 | MHC.CM.PN ---
Addendum entered by Dionne Blanc 01/08/21 12:11: YENIFER SPOKE TO CLINICIAN, JACKI GALICIA ([phone]) FROM PTS US[facility], [facility]. WHO EXPRESSED CONCERN THAT THE PT WAS NOT STABLE DESPITE BEING CLEARED BY N. YENIFER CONTACTED [facility] TO DISCUSS RECOMMENDATIONS MADE BY EVALUATING CLINICIAN, BROOK. BROOK WAS UNAVAILABLE, YENIFER SPOKE TO HER CONSTRUCTION GRIP, BERNY. BERNY CLARIFIED THAT THEY FELT THE PT NEEDED SOMETHING OTHER THAN INPT PSYCH, SHE REPORTS THE PT HAS HAD SEVERAL ADMISSIONS IN A VERY SHORT TIME AND IT IS OBVIOUSLY NOT GIVING HIM WHAT HE NEEDS SHE REPORTS [facility] FEELS THE PTS DDS AND [facility] SHOULD MEET TO DETERMINE AN APPROPRIATE LATERAL TRANSFER TO A FACILITY THAT IS BETTER EQUIPPED TO MANAGE PTS BEHAVIORAL AND MEDICAL NEEDS. YENIFER CALLED JACKI BACK AND PROVIDED THE ABOVE INFORMATION. HE REPORTS HE HAS BEEN WORKING WITH DDS TO DETERMINE WHAT WOULD BE APPROPRIATE FOR PT FAR A LATERAL TRANSFER. HE THEN EXPLAINS THEY DISCOVERED IN APRIL OF 2020 THAT THE PT HAD HAD A STROKE THAT WENT UNNOTICED, HE REPORTS THERE HAD BEEN A SHARP DECLINE AT THAT TIME AND HE AND THE DDS WORKER FEEL THE PT NEEDS A SCAN TO DETERMINE IF THERE IS ANYTHING RELEVANT. YENIFER SUGGESTED THIS BE SCHEDULED AN OUTPATIENT HOWEVER JACKI INDICATED THEY WOULD PREFER IT BE NOW SO THAT THEY CAN HAVE THE RESULTS. YENIFER AGREED TO DISCUSS THIS WITH CONSTRUCTION GRIP AND ASK THAT SHE SPEAK TO HIM DIRECTLY. Addendum entered by Dionne Blanc 01/08/21 09:59: CM CALLED THE PHONE NUMBER LISTED FOR THE PT ([phone]). THE CALL WENT TO . YENIFER FOUND A DIFFERENT NUMBER FOR [facility] IN [employer] ([phone]), THIS CALL ALSO WENT TO . MESSAGES LEFT AT EACH NUMBER. CM RECEIVED A CALL BACK FROM [place] ([phone]), A STAFF MEMBER FROM PTS [facility]. YENIFER INFORMED HER THE PT WAS CLEARED BY BOTH N AND ED. SHE REPORTED SHE WAS JUST WALKING INTO A MEETING BUT WOULD CONTACT THE USP TO COORDINATE PTS RETURN. YENIFER PROVIDED DIRECT PHONE NUMBER AND REQUESTED SHE CALL BACK SOON SHE WAS ABLE TO SPEAK TO STAFF. Addendum entered by Dionne Blanc 01/08/21 09:31: YENIFER HAS ATTEMPTED TO CONTACT PTS INSTALLER METAL [employer]LOORING, AMAURI ([phone]) SEVERAL TIMES HOWEVER THE CALLS CONTINUE TO GO DIRECTLY TO . YENIFER CALLED PTS LEGAL GUARDIAN, BERNARDINO ([phone]) WHO DID ANSWER HOWEVER THE PHONE CONNECTION WAS POOR AND YENIFER WAS UNABLE TO UNDERSTAND MUCH OF WHAT WAS SAID. YENIFER WAS ABLE TO INFORM HIM THAT THE USP HAD NOT BEEN CONTACTED AND HE DID INDICATE HE WOULD TRY TO REACH THEM AND ASK THEM TO CONTACT T/W. YENIFER WILL CALL BERNARDINO BACK LATER THIS MORNING PER HIS REQUEST AND CONTINUE TO TRY TO CONTACT PTS [facility] STAFF. Original Note: YENIFER informed pt has been cleared by [facility]. CM attempting to contact [facility]ci director, Amauri ([phone]). Calls are going straight to . CM will call again at 0900. CM will also call pts guardian.
[2021-01-08] MEDS: OLANZapine 5 MG TABLET PO (11:04)
[2021-01-08] MEDS: risperiDONE 0.5 MG TABLET PO (11:04)
--- NOTE | 2021-01-08 11:34 | PC.NURSE ---
pt incontinent in recliner, pt cleaned and new linen on chair. pt up and out of chair- walked to bathroom. sitting on toilet for over [address]/medical interpreter to help get patient back into room. prns administered prior to incontinent episode d/t aggression and agitation.
--- NOTE | 2021-01-08 13:07 | PC.NURSE ---
Pt assisted w/ eating lunch, began to cough while eating, threw up previously eaten food and milk. ?aspiration, wet cough. Dr. Hollins notified and plan to obtain chest xray at 1800. Primary rn aware.
--- NOTE | 2021-01-08 13:18 | MHC.CM.PN ---
T/w spoke with Loren Cervantes at [facility] who expressed concerns regarding patients return to residential. Per Loren, the patient has become difficult to handle and they feel he needs a higher level of care. I explained to Loren that the patient has been cleared to d/c from the ED and per reports from his nurse has returned to baseline. Loren requested we keep the patient until they are able to consult with a neurologist from [facility] in the hopes he would admit the patient for testing. I explained that transition of care could be coordinated on an outpatient level and currently there was nothing indicating a need for a hospital admission. T/w communicated that patient to return to residential at 3pm via chair van.
--- NOTE | 2021-01-08 13:36 | MHC.CM.PN ---
PT WILL BE DISCHARGING BACK TO THE [facility] TODAY [facility]IA [facility] AT 1500 HOURS. JACKI GALICIA [phone], FROM THE AND [facility] ARE BOTH AWARE.
--- NOTE | 2021-01-08 13:50 | PC.NURSE ---
xray at bedside
--- NOTE | 2021-01-08 14:26 | MHC.CM.PN ---
YENIFER RECEIVED A CALL FROM JACKI GALICIA WHO REPORTED HE WANTED TO FORMALLY REQUEST THE PT BE SENT HOME VIA BLS AT 1500 HOURS. HE REPORTS THEY HAVE DISCUSSED HIS PLAN OF CARE AND WILL BE TAKING HIM TO [facility] WHERE HIS NEUROLOGIST WILL BE ABLE TO EVALUATE HIM. TRANSPORT IS SET FOR 1500 HOURS [facility]IA [facility] YENIFER CALLED PTS GUARDIAN, BERNARDINO JOSHUAZQUEZ ([phone]) TO INFORM HIM OF TRANSPORT TIME AND CARE PLAN. CALL WENT TO AND INFORMATION WAS LEFT FOR HIM ALONG WITH INVITATION TO CALL CM WITH ANY QUESTIONS/CONCERNS.
== END 2021-01-08 15:13 | disposition home or self-care (01) ==
PROVIDERS: Nurse Practitioner Family; Emergency Provider Student in an Organized Health Care Education/Training Program
DX: F20.9 Schizophrenia, unspecified (principal); F32.9 Major depressive disorder, single episode, unspecified; R45.851 Suicidal ideations; Z20.822 Contact with and (suspected) exposure to COVID-19; R13.10 Dysphagia, unspecified; E11.9 Type 2 diabetes mellitus without complications; I10 Essential (primary) hypertension; K21.9 Gastro-esophageal reflux disease without esophagitis; G20 Parkinson's disease; Z79.82 Long term (current) use of aspirin; Z79.899 Other long term (current) drug therapy
CPT/HCPCS: 36415; 71045; 80048; 80307; 81003; 85025; 87635; 99284; 99285

== ENCOUNTER 2021-07-01 20:32 | Emergency (ER) | payer MEDICARE, MEDICAID, SELFPAY ==
--- NOTE | ~2021-07-01 | XR_ITS ---
EXAMINATION: XR TOES, RIGHT CLINICAL INFORMATION: Great toe pain. COMPARISON: None TECHNIQUE: 3 views of the right toes were obtained. FINDINGS: No displaced fracture. No dislocation. Joint space narrowing with marginal osteophytes at the 1st metatarsophalangeal and interphalangeal joints. No osseous erosion. No abnormal soft tissue calcification. XR/XR toe RT min 2V IMPRESSION: 1. No displaced fracture or dislocation. 2. 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
[2021-07-01 21:01] VITALS: BP 116/76; PULSE 88; RESP 16; TEMP 36.9; O2SAT 99; BMI 24.2
--- NOTE | 2021-07-01 22:42 | ED.LOWEXIN ---
HPI - Extremity Injury (Lower) General Chief Complaint: Extremity Injury, Lower Stated Complaint: toe infection Time Seen by Provider: 07/01/21 22:05 History of Present Illness HPI Narrative: 71-year-old male with a history of being mentally challenged. Patient presented from care home with having pain to the right great toe. Patient unable to give detailed history. No trauma was reported. Related Data Home Medications Medication Instructions Recorded Confirmed benztropine 0.5 mg tablet 0.5 mg PO BID 06/27/20 06/12/21 mirtazapine 15 mg tablet 15 mg PO BID tab 06/27/20 06/12/21 risperidone 1 mg tablet 1 mg PO BID 08/15/20 06/12/21 carbidopa 25 mg-levodopa 100 mg 1 tab PO QID 11/23/20 06/12/21 tablet Previous Rx's Medication Instructions Recorded diaper,brief,adult,disposable #96 ea 11/23/20 (Briefs Medium) sennosides 8.6 mg-docusate sodium 2 tab-cap PO BEDTIME 90 Days #180 02/20/21 50 mg tablet (Senna-S) tab melatonin 5 mg capsule 5 mg PO .QHS 90 Days #90 cap 04/11/21 acetaminophen 325 mg tablet 650 mg PO Q8H PRN 90 Days #90 tab 05/14/21 aspirin 81 mg tablet,delayed 81 mg PO DAILY 90 Days #90 tab 05/14/21 release (Adult Low Dose Aspirin) atorvastatin 20 mg tablet 20 mg PO BEDTIME #90 tab 05/14/21 duloxetine 20 mg capsule,delayed 20 mg PO QAM 90 Days #90 cap 05/14/21 release gabapentin 300 mg capsule 300 mg PO BEDTIME #90 cap 05/14/21 diphenhydramine HCl 25 mg tablet 25 mg PO BEDTIME PRN #4 tab 06/12/21 (Benadryl Allergy) triamcinolone acetonide 0.1 % 1 appl TOPICAL BID 7 Days #30 g 06/12/21 topical cream topiramate 50 mg tablet (Topamax) 50 mg PO BID 90 Days #180 tab 06/19/21 divalproex 500 mg tablet,delayed 500 mg PO BID 90 Days #180 tab 06/27/21 release (Depakote) tamsulosin 0.4 mg capsule 0.8 mg PO DAILY 90 Days #180 cap 06/27/21 amoxicillin 875 mg-potassium 1 tab PO BID #10 tab 07/01/21 clavulanate 125 mg tablet (Augmentin) Allergies Allergy/AdvReac Type Severity Reaction Status Date / Time perfume Allergy Intermediate ITCHING Verified 07/01/21 21:43 Review of Systems Review of Systems: Unable to obtain review systems secondary to patient's condition. Yes Unobtainable due to mental status PMFSH Past Medical History Medical History Annual physical exam BPH with obstruction/lower urinary tract symptoms Depression Developmental delay, moderate Dysphagia Gastroesophageal reflux disease Hypercholesteremia Hypertension Metabolic encephalopathy Occipital infarction Parkinson's disease Schizophrenia Tubular adenoma of colon Type 2 diabetes mellitus with hyperglycemia Vitamin D deficiency Surgical History History of circumcision History of colonoscopy History of prostate surgery Family History Family History Father Type II diabetes mellitus Mother Type II diabetes mellitus Social History Social History Housing: Assisted Living Facility Alcohol intake: never Patient Tobacco Use Status: Never used Tobacco Advance Directives: Yes Advance Directives on File: No service: No Current occupational status: disabled Physical Exam Vital Signs: Vital Signs: Last Vital Signs Temp 98.4 F 07/01/21 21:01 Pulse 88 07/01/21 21:01 Resp 16 07/01/21 21:01 BP 116/76 07/01/21 21:01 Pulse Ox 99 07/01/21 21:01 Body Mass Index 24.2 Appearance: Alert. . No acute distress. Eyes: Pupils equal, round and reactive to light. ENT: Pharynx normal. Neck: Normal inspection. Neck supple. No lymph nodes noted. No crepitus CVS: Normal heart rate and rhythm. Pulses normal. Normal S1 and S2 Respiratory: No respiratory distress. Breath sounds normal. No Wheezing. No rales Abdomen: Soft and nontender. No rigidity. No distention. good BS x4 Skin: Skin warm and dry. Normal skin color. Normal skin turgor. Extremities: No lower extremity edema. Neurovascular intact to all extremities. Examination of the right great toe showed some redness. Positive subungual hematoma. Sensation intact. Pulses 2+ at dorsalis pedis. Neuro: Oriented X 3. No motor deficit. No sensory deficit. Moving all extermities. No slurred speech MDM - Extremity Injury (Lower) MDM Narrative Medical decision making narrative: Subungual hematoma was drained using an 18 gauge needle. Large amount of blood resulted. Symptomatic improved. Will start patient on antibiotic as he is diabetic. Will have patient closely follow up on an outpatient basis. Medical Records Attestation: I reviewed the patient's medical records. Lab Data Attestation: I reviewed the patient's lab results. Discharge Plan Discharge Clinical Impression: Hematoma, subungual, great toe, right Patient Disposition: Home, Self-Care Prescriptions: New amoxicillin-pot clavulanate [Augmentin] 875-125 mg tablet 1 tab PO BID Qty: 10 RF: 0 No Action sennosides-docusate sodium [Senna-S] 8.6-50 mg tablet 2 tab-cap PO BEDTIME 90 Days Qty: 180 RF: 2 melatonin 5 mg capsule 5 mg PO .QHS 90 Days Qty: 90 RF: 3 acetaminophen 325 mg tablet 650 mg PO Q8H PRN (Reason: fever or pain) 90 Days Qty: 90 RF: 0 aspirin [Adult Low Dose Aspirin] 81 mg tablet,delayed release (DR/EC) 81 mg PO DAILY 90 Days Qty: 90 RF: 3 atorvastatin 20 mg tablet 20 mg PO BEDTIME Qty: 90 RF: 3 duloxetine 20 mg capsule,delayed release(DR/EC) 20 mg PO QAM 90 Days Qty: 90 RF: 2 gabapentin 300 mg capsule 300 mg PO BEDTIME Qty: 90 RF: 3 topiramate [Topamax] 50 mg tablet 50 mg PO BID 90 Days Qty: 180 RF: 2 divalproex [Depakote] 500 mg tablet,delayed release (DR/EC) 500 mg PO BID 90 Days Qty: 180 RF: 1 tamsulosin 0.4 mg capsule 0.8 mg PO DAILY 90 Days Qty: 180 RF: 2 risperidone 1 mg tablet 1 mg PO BID RF: 0 carbidopa-levodopa 25-100 mg tablet 1 tab PO QID RF: 0 (DME) Briefs Medium Misc See Rx Instructions .ROUTE .MEDSUPPLY Qty: 96 RF: 8 triamcinolone acetonide 0.1 % cream 1 appl topical BID 7 Days Qty: 30 RF: 0 diphenhydramine HCl [Benadryl Allergy] 25 mg tablet 25 mg PO BEDTIME PRN (Reason: sleep) Qty: 4 RF: 0 mirtazapine 15 mg tablet 15 mg PO BID RF: 0 benztropine 0.5 mg tablet 0.5 mg PO BID RF: 0 Referrals: Po,Claire Christianson MD [Primary Care Provider] - 2 days
[2021-07-01] MEDS: Amoxicillin/Potassium Clav 875 MG TABLET PO (23:28)
== END 2021-07-01 23:35 | disposition home or self-care (01) ==
PROVIDERS: Emergency Provider Emergency Medicine Emergency Medical Services; PCP Internal Medicine
DX: S90.111A Contusion of right great toe without damage to nail, initial encounter (principal); S90.811A Abrasion, right foot, initial encounter; M79.671 Pain in right foot; Y29.XXXA Contact with blunt object, undetermined intent, initial encounter; Y93.9 Activity, unspecified; Y92.009 Unspecified place in unspecified non-institutional (private) residence as the place of occurrence of the external cause; Y99.9 Unspecified external cause status; Z79.899 Other long term (current) drug therapy
CPT/HCPCS: 73660; 90471; 99283; 99284

== ENCOUNTER 2021-07-09 11:57 | Inpatient (IN) | payer MEDICARE, MEDICAID, SELFPAY ==
--- NOTE | ~2021-07-09 | XR_ITS ---
EXAMINATION: XR CHEST CLINICAL INFORMATION: Bilateral lower extremity swelling COMPARISON: Chest radiographs 01/08/2021, 07/06/2020 TECHNIQUE: Portable upright AP view of the chest was obtained. FINDINGS: Patient is slightly rotated. The lungs are clear. The vascularity is normal. The heart is normal in size. There is no vascular congestion, infiltrate, or effusion. The hilar and mediastinal contours are unremarkable. No acute bony abnormality. XR/XR chest 1V IMPRESSION: Unremarkable examination.
--- NOTE | ~2021-07-09 | XR_ITS ---
EXAMINATION: XR FOOT, RIGHT CLINICAL INFORMATION: Swelling and pain COMPARISON: Right toe x-ray 07/01/2021 TECHNIQUE: AP, lateral, and oblique views of the right foot. FINDINGS: Bone alignment is normal. No fracture or dislocation is seen. There is mild arthritis at the IP joint and MTP joint of the great toe. Joint spaces are otherwise normal. There may be soft tissue swelling of the great toe. No abnormal air collection or foreign body is seen. XR/XR foot RT min 3V IMPRESSION: Mild arthritis at the IP and MTP joints of the great toe.
[2021-07-09 12:06] VITALS: BP 137/71; PULSE 74; RESP 16; TEMP 36.9; O2SAT 98; BMI 23.0
--- NOTE | 2021-07-09 16:25 | ED_ITS ---
HPI - Skin/Abscess/Foreign Bdy General Chief complaint: Skin/Abscess/Foreign Body Stated complaint: toe infection Time Seen by Provider: 07/09/21 18:10 Source: patient and other Mode of arrival: ambulatory Limitations: other History of Present Illness HPI narrative: A 71-year-old male presents with senior care staff, has concerns that his right great toe is infected. He stubbed his toe last week and was given antibiotics. House staff states that his dressings have had a lot of discolored drainage and that he continues to complain of pain. They noted that his toe was swollen and red since the injury, and the antibiotics have not helped. Patient is able to make his basic needs known and is able to answer si mple questions. complaint: discoloration Onset (ago): week(s) (1) Tetanus up to date: yes Location: R foot Severity: moderate Quality: aching Pain Consistency: constant Relieving factors: none Exacerbating factors: palpation and movement Context: other (Stubbed toe) Associated symptoms: denies other symptoms Treatments prior to arrival: bandages and prescription analgesic Related Data Home Medications Medication Instructions Recorded Confirmed benztropine 0.5 mg tablet 0.5 mg PO BID 06/27/20 06/12/21 mirtazapine 15 mg tablet 15 mg PO BID tab 06/27/20 06/12/21 risperidone 1 mg tablet 1 mg PO BID 08/15/20 06/12/21 carbidopa 25 mg-levodopa 100 mg 1 tab PO QID 11/23/20 06/12/21 tablet Previous Rx's Medication Instructions Recorded diaper,brief,adult,disposable #96 ea 11/23/20 (Briefs Medium) sennosides 8.6 mg-docusate sodium 2 tab-cap PO BEDTIME 90 Days #180 02/20/21 50 mg tablet (Senna-S) tab melatonin 5 mg capsule 5 mg PO .QHS 90 Days #90 cap 04/11/21 acetaminophen 325 mg tablet 650 mg PO Q8H PRN 90 Days #90 tab 05/14/21 aspirin 81 mg tablet,delayed 81 mg PO DAILY 90 Days #90 tab 05/14/21 release (Adult Low Dose Aspirin) atorvastatin 20 mg tablet 20 mg PO BEDTIME #90 tab 05/14/21 duloxetine 20 mg capsule,delayed 20 mg PO QAM 90 Days #90 cap 05/14/21 release gabapentin 300 mg capsule 300 mg PO BEDTIME #90 cap 05/14/21 diphenhydramine HCl 25 mg tablet 25 mg PO BEDTIME PRN #4 tab 06/12/21 (Benadryl Allergy) triamcinolone acetonide 0.1 % 1 appl TOPICAL BID 7 Days #30 g 06/12/21 topical cream topiramate 50 mg tablet (Topamax) 50 mg PO BID 90 Days #180 tab 06/19/21 divalproex 500 mg tablet,delayed 500 mg PO BID 90 Days #180 tab 06/27/21 release (Depakote) tamsulosin 0.4 mg capsule 0.8 mg PO DAILY 90 Days #180 cap 06/27/21 amoxicillin 875 mg-potassium 1 tab PO BID #10 tab 07/01/21 clavulanate 125 mg tablet (Augmentin) Allergies Allergy/AdvReac Type Severity Reaction Status Date / Time perfume Allergy Intermediate ITCHING Verified 07/01/21 21:43 Review of Systems Review of Systems: Constitutional: No Fever, No Chills ENT/Mouth: No Ear Pain, No Hoarseness, No sore throat Eyes: No Eye Pain, No Swelling, No Redness, No Foreign Body Cardiovascular: No Chest Pain, No SOB Respiratory: No Cough, No Dyspnea Gastrointestinal: No Nausea, No Vomiting, No Diarrhea, No abdominal Pain Genitourinary: No Dysuria, No Hematuria Musculoskeletal: positive right great toe pain, No Myalgias, No Joint Swelling Skin: No Skin lacerations, No rash Neuro: No Weakness, No Numbness, No Paresthesias, No Loss of Consciousness, No Dizziness, No Headache Psych: No Anxiety/Panic, No Depression Heme/Lymph: no easy bruising, no Lymphadenopathy Endocrine: No Polyuria, No Polydipsia PMFSH Past Medical History Attestation statement: The following information was validated with the patient. Source: old records reviewed Medical History Annual physical exam BPH with obstruction/lower urinary tract symptoms Depression Developmental delay, moderate Dysphagia Gastroesophageal reflux disease Hypercholesteremia Hypertension Metabolic encephalopathy Occipital infarction Parkinson's disease Schizophrenia Tubular adenoma of colon Type 2 diabetes mellitus with hyperglycemia Vitamin D deficiency Surgical History History of circumcision History of colonoscopy History of prostate surgery Family History Family History Father Type II diabetes mellitus Mother Type II diabetes mellitus Social History Social History Housing: Assisted Living Facility Alcohol intake: never Patient Tobacco Use Status: Never used Tobacco Advance Directives: No Advance Directives Information Provided: No service: No Current occupational status: disabled Physical Exam Vital Signs: Vital Signs: Last Vital Signs Temp 99.0 F 07/09/21 16:27 Pulse 74 07/09/21 20:02 Resp 16 07/09/21 20:02 BP 133/85 07/09/21 20:02 Pulse Ox 96 07/09/21 20:02 Body Mass Index 23.0 Appearance: Alert. Oriented to self. No acute distress. Eyes: Pupils equal, round and reactive to light. Sclera nonicteric. ENT: Pharynx normal. Moist mucous membranes. Neck: Normal inspection. Neck supple. CVS: Normal heart rate and rhythm. Pulses normal. Respiratory: No respiratory distress. Breath sounds normal. Abdomen: Soft and nontender. Skin: Erythematous, macerated and swollen right great toe. Extremities: +3 pitting edema to bilateral lower extremities. Moves all extremities against resistance. Neuro: No motor deficit. No sensory deficit. Course Course Course Narrative: 71-year-old male residing in a senior care, has schizophrenia and cognitive impairment with Parkinson's, presents after course of antibiotics for a right great stubbed toe. Toe is reddened, tender to touch, and patient has not been able comfortably wear shoes or socks. Will order labs, x-rays, and start IV antibiotics as patient did not respond well to p.o. Augmentin. Patient is able to answer simple questions, is not able to follow directions to perform full cranial nerve assessment. Patient is able to lift all extremities on command. 6:10 p.m. critical result for elevated glucose at 5:57 a.m.. Order for 7 units of insulin. Sodium is 129, corrected sodium is 136. 7:50 p.m. discussion with hospitalist, plan of care is to admit for cellulitis. Consultations Consultation #1: Emily Time: 19:47 MDM - Skin/Abscess/Foreign Bdy MDM Narrative Medical decision making narrative: Osteomyelitis, sepsis Differential Diagnosis Differential diagnosis: Likely abscess of skin or subcutaneous tissue and cellulitis Medical Records Attestation: I reviewed the patient's medical records. Lab Data Attestation: I reviewed the patient's lab results. Result diagrams: 07/09/21 17:19 07/09/21 17:13 Labs: Lab Results 07/09/21 07/09/21 07/09/21 Range/Units 17:13 17:18 17:19 WBC 3.4 L (4.8-10.8) X10*3/uL RBC 4.14 L (4.60-5.80) X10*6/uL Hgb 13.1 L (14.0-18.0) g/dl Hct 37.5 L (42-52) % MCV 90.6 (80-98) fL MCH 31.6 (27.0-33.0) pg MCHC 34.9 (31.0-36.0) g/dl RDW 13.3 (11.0-16.0) % Plt Count 138 L (160-400) X10*3/uL MPV 8.7 L (9.4-12.4) fL Immature Gran % (Auto) 0.6 H (0.0-0.4) % Neut % (Auto) 58.2 (45-73) % Lymph % (Auto) 24.3 (20-40) % [place] % (Auto) 14.8 H (2-11) % Eos % (Auto) 1.8 (0-4) % Baso % (Auto) 0.3 (0-2) % Lymph # (Auto) 0.8 L (1.2-4.9) X10*3/uL [place] # (Auto) 0.5 (0.1-1.2) X10*3/uL Eos # (Auto) 0.1 (0.0-0.4) X10*3/uL Baso # (Auto) 0.0 (0.0-0.2) X10*3/uL Abs Immat Gran (auto) 0.02 (0.00-0.03) X10*3/uL Absolute Neuts (auto) 2.0 (2.0-8.3) X10*3/uL Absolute Nucleated RBC 0.000 (0.0-0.012) X10*3/uL Nucleated RBC % (auto) 0.0 (0.0-0.2) /100WBC ESR (0-15) MM/HR Sodium 129 L (135-145) mmol/L Potassium 4.5 D (3.3-5.1) mmol/L Chloride 91 L (96-108) mmol/L Carbon Dioxide 27 (22-29) mmol/L Anion Gap 16 (12-20) BUN 13 (9-16) mg/dL Creatinine 1.20 (0.5-1.4) mg/dL Estim Creat Clear Calc 46.5 Estimated GFR 60 Random Glucose 557 H* (60-115) mg/dL Lactic Acid 1.2 (0.5-2.0) mmol/L Calcium 9.2 (8.4-10.2) mg/dL Troponin I High Sens (<3.5-35.0) ng/L C-Reactive Protein 0.25 (< or = 0.50) mg/dL B-Natriuretic Peptide (<100) pg/mL Acetone, Qual Small H (Negative) 07/09/21 07/09/21 Range/Units 17:49 17:59 WBC (4.8-10.8) X10*3/uL RBC (4.60-5.80) X10*6/uL Hgb (14.0-18.0) g/dl Hct (42-52) % MCV (80-98) fL MCH (27.0-33.0) pg MCHC (31.0-36.0) g/dl RDW (11.0-16.0) % Plt Count (160-400) X10*3/uL MPV (9.4-12.4) fL Immature Gran % (Auto) (0.0-0.4) % Neut % (Auto) (45-73) % Lymph % (Auto) (20-40) % [place] % (Auto) (2-11) % Eos % (Auto) (0-4) % Baso % (Auto) (0-2) % Lymph # (Auto) (1.2-4.9) X10*3/uL [place] # (Auto) (0.1-1.2) X10*3/uL Eos # (Auto) (0.0-0.4) X10*3/uL Baso # (Auto) (0.0-0.2) X10*3/uL Abs Immat Gran (auto) (0.00-0.03) X10*3/uL Absolute Neuts (auto) (2.0-8.3) X10*3/uL Absolute Nucleated RBC (0.0-0.012) X10*3/uL Nucleated RBC % (auto) (0.0-0.2) /100WBC ESR 12 (0-15) MM/HR Sodium (135-145) mmol/L Potassium (3.3-5.1) mmol/L Chloride (96-108) mmol/L Carbon Dioxide (22-29) mmol/L Anion Gap (12-20) BUN (9-16) mg/dL Creatinine (0.5-1.4) mg/dL Estim Creat Clear Calc Estimated GFR Random Glucose (60-115) mg/dL Lactic Acid (0.5-2.0) mmol/L Calcium (8.4-10.2) mg/dL Troponin I High Sens 5.2 (<3.5-35.0) ng/L C-Reactive Protein (< or = 0.50) mg/dL B-Natriuretic Peptide 25 (<100) pg/mL Acetone, Qual (Negative) Imaging Data Right great toe x-ray: Attestation: I personally reviewed and interpreted this imaging study as follows: Radiologist's impression: EXAMINATION: XR FOOT, RIGHT CLINICAL INFORMATION: Swelling and pain? COMPARISON: Right toe x-ray 07/01/2021? TECHNIQUE: AP, lateral, and oblique views of the right foot. FINDINGS: Bone alignment is normal. No fracture or dislocation is seen. There is mild arthritis at the IP joint and MTP joint of the great toe. Joint spaces are otherwise normal. There may be soft tissue swelling of the great toe. No abnormal air collection or foreign body is seen.? XR/XR foot RT min 3V IMPRESSION: Mild arthritis at the IP and MTP joints of the great toe. Chest x-ray: Attestation: I personally reviewed and interpreted this imaging study as follows: Radiologist's impression: EXAMINATION: XR CHEST CLINICAL INFORMATION: Bilateral lower extremity swelling COMPARISON: Chest radiographs 01/08/2021, 07/06/2020 TECHNIQUE: Portable upright AP view of the chest was obtained. FINDINGS: Patient is slightly rotated. The lungs are clear. The vascularity is normal. The heart is normal in size. There is no vascular congestion, infiltrate, or effusion. The hilar and mediastinal contours are unremarkable. No acute bony abnormality. XR/XR chest 1V IMPRESSION: Unremarkable examination. ECG Data Attestation: I personally reviewed and interpreted this ECG as follows: ECG interpretation date: 07/09/21 Critical Care Time Critical Care Time Critical Care Time: Yes Total Critical Care Time: 45 Attestation: I have personally provided critical care time exclusive of time spent on separately billable procedures. Time includes review of laboratory data, radiology results, discussion with consultants, and monitoring for potential decompensation. Interventions were performed as documented. Discharge Plan Discharge Clinical Impression: Cellulitis Qualifiers: Site of cellulitis: extremity Site of cellulitis of extremity: toe Laterality: right Qualified Code(s): L03.031 - Cellulitis of right toe Type 2 diabetes mellitus with hyperglycemia Qualifiers: Diabetes mellitus intermodal dispatcher insulin use: without intermodal dispatcher use Qualified Code(s): E11.65 - Type 2 diabetes mellitus with hyperglycemia Patient Disposition: Admitted As Inpatient
--- NOTE | 2021-07-09 16:26 | ECG_ITS ---
Test Reason : SKIN ABCESS Blood Pressure : / mmHG Vent. Rate : 074 BPM Atrial Rate : 074 BPM P-R Int : 134 ms QRS Dur : 090 ms QT Int : 374 ms P-R-T Axes : 009 001 026 degrees QTc Int : 415 ms Normal sinus rhythm Normal ECG No significant changes seen Referred By: Yamini Rivera Electronically Signed By:JACOBO JACOB MD
[2021-07-09 16:27] VITALS: BP 125/71; PULSE 78; RESP 18; TEMP 37.2; O2SAT 97
[2021-07-09 17:27] LABS: MANUAL DIFF FLAG NO
[2021-07-09 17:28] LABS: Basophils Percent Auto 0.3 % (0-2); Eosinophils Absolute Auto 0.1 X10*3/uL (0.0-0.4); Eosinophils Percent Auto 1.8 % (0-4); Hematocrit 37.5 % (42-52); Hemoglobin 13.1 g/dl (14.0-18.0); Imm Gran Abs Auto 0.02 X10*3/uL (0.00-0.03); Imm Gran Pct Auto 0.6 % (0.0-0.4); Lymphocytes Absolute Auto 0.8 X10*3/uL (1.2-4.9); Lymphocytes Percent Auto 24.3 % (20-40); Mean Corpuscular HGB Conc 34.9 g/dl (31.0-36.0); Mean Corpuscular Hemoglobin 31.6 pg (27.0-33.0); Mean Corpuscular Volume 90.6 fL (80-98); Mean Platelet Volume 8.7 fL (9.4-12.4); Monocytes Absolute Auto 0.5 X10*3/uL (0.1-1.2); Monocytes Percent Auto 14.8 % (2-11); Neutrophils Percent Auto 58.2 % (45-73); Platelet Count 138 X10*3/uL (160-400); Red Blood Count 4.14 X10*6/uL (4.60-5.80); Red Cell Distribution Width 13.3 % (11.0-16.0); White Blood Count 3.4 X10*3/uL (4.8-10.8)
[2021-07-09 17:47] LABS: Lactic Acid 1.2 mmol/L (0.5-2.0)
[2021-07-09 17:49] LABS: C Reactive Protein 0.25 mg/dL (< or = 0.50)
[2021-07-09] MEDS: cefEPime HCl 2 GM in 0.9 % Sodium Chloride 50 ML IV (18:05)
[2021-07-09 18:11] LABS: Anion Gap 16 (12-20); Blood Urea Nitrogen 13 mg/dL (9-16); Calcium 9.2 mg/dL (8.4-10.2); Carbon Dioxide 27 mmol/L (22-29); Chloride 91 mmol/L (96-108); Creatinine Clr Calc Pharmacy 46.5; Estimated Glomerular Filt Rate 60; Glucose Random 557 mg/dL (60-115); Potassium 4.5 mmol/L (3.3-5.1); Sodium 129 mmol/L (135-145)
[2021-07-09 18:30] LABS: B Type Natriuretic Peptide 25 pg/mL (<100); Troponin-I High Sensitivity 5.2 ng/L (<3.5-35.0)
[2021-07-09 18:34] LABS: Acetone, serum QL Small (Negative)
[2021-07-09] MEDS: Insulin Regular, Human 100 UNIT/ML 3 ML VIAL 7 UNIT IVPUSH (18:43)
[2021-07-09] MEDS: vancomycin HCL 1,000 MG in 0.9 % Sodium Chloride 250 ML 270 MG IV (18:46)
[2021-07-09 18:48] VITALS: BP 180/91; PULSE 84; RESP 16; O2SAT 98
[2021-07-09 19:19] LABS: Erythrocyte Sedimentation Rate 12 MM/HR (0-15)
--- NOTE | 2021-07-09 19:54 | PM.IMHP ---
History of Present Illness Date of Service: 07/09/21 Chief Complaint: Right great toe pain and swelling 71-year-old male with a past medical history of hypertension, hyperlipidemia, GERD, Parkinson disease, diabetes, BPH, history of esophageal spasm, oropharyngeal dysphagia, developmental delay-lives in a skilled nursing, history of schizophrenia, depression presented to the hospital with a chief complaint of right great toe pain and swelling. Reportedly patient has injured his right great toe few days ago and noted swelling; patient was started on Augmentin as outpatient given concerns for infection. But the patient has grade to continue to have pain and increased swelling. Denies any discharge. Denies any fevers. Denies any chest pain palpitations lightheadedness or dizziness. Denies any GI or symptoms. Review of all other systems is negative except mentioned above ER course: Per ER team patient has a right great toe noted to have cellulitis; not concerned for necrosis. Given IV vancomycin and cefepime. X-rays were done showed no acute findings or gas. Admitted to the hospital for further managemen Also mentioned that patient's glucose was elevated and given insulin subcutaneous. IV fluids were given. Noted to have pseudo hyponatremia. [facility] Medical History Annual physical exam BPH with obstruction/lower urinary tract symptoms Depression Developmental delay, moderate Dysphagia Gastroesophageal reflux disease Hypercholesteremia Hypertension Metabolic encephalopathy Occipital infarction Parkinson's disease Schizophrenia Tubular adenoma of colon Type 2 diabetes mellitus with hyperglycemia Vitamin D deficiency Family History Father Type II diabetes mellitus Mother Type II diabetes mellitus Pertinent family history: As mentioned above Surgical History History of circumcision History of colonoscopy History of prostate surgery Social History Housing: Assisted Living Facility Alcohol intake: never Patient Tobacco Use Status: Never used Tobacco Advance Directives: No Advance Directives Information Provided: No service: No Current occupational status: disabled Meds Allergies Allergy/AdvReac Type Severity Reaction Status Date / Time perfume Allergy Intermediate ITCHING Verified 07/01/21 21:43 Active Medications: Current Medications Acetaminophen (Acetaminophen 325 Mg Tablet) 650 mg PO Q6H PRN PRN Reason: Pain, Mild (Pain Scale 1-3) Dextrose (Dextrose 50 % 25 Gm/50 Ml Vial) 25 gm IVPUSH Q15M PRN; Protocol PRN Reason: per Hypoglycemia Standing Ord. Glucose (Glucose Gel 15 Gm Gel..Gram.) 15 gm PO Q15M PRN; Protocol PRN Reason: per Hypoglycemia Standing Ord. Heparin Sodium (Porcine) (Heparin Sodium,Porcine 5,000 Unit/Ml Vial) 5,000 unit SUBCUT Q8H MIRIAN Vancomycin HCl 1,000 mg/ (Sodium Chloride) 270 mls @ 270 mls/hr IV Q24H MIRIAN Vancomycin HCl 1,000 mg/ (Sodium Chloride) 270 mls @ 270 mls/hr IV Q12H MIRIAN Insulin Glargine (Insulin Glargine,Hum.Rec.Anlog 100 Unit/Ml 10 Ml Vial) 20 unit SUBCUT BEDTIME MIRIAN Insulin Human Lispro (Insulin Lispro 100 Unit/Ml 3 Ml Vial) 0 unit SUBCUT QIDACHS [facility]; Protocol Melatonin (Melatonin 3 Mg Tablet) 6 mg PO BEDTIME PRN PRN Reason: Insomnia Pharmacy Consult (Consult Rx Vancomycin Dosing) 1 each MISCELLANE DAILY PRN PRN Reason: Consult order Pharmacy Consult (Consult Rx Vancomycin Dosing) 1 each MISCELLANE DAILY PRN PRN Reason: Consult order Senna (Sennosides 8.6 Mg Tablet) 17.2 mg PO BEDTIME PRN PRN Reason: Constipation Sodium Chloride (0.9 % Sodium Chloride Flush 3 Ml Syringe) 3 [facility] Medications Medication Instructions Recorded Confirmed Last Taken Type benztropine 0.5 mg tablet 0.5 mg PO BID 06/27/20 06/12/21 Unknown History mirtazapine 15 mg tablet 15 mg PO BID tab 06/27/20 06/12/21 Unknown History risperidone 1 mg tablet 1 mg PO BID 08/15/20 06/12/21 Unknown History carbidopa 25 mg-levodopa 100 mg 1 tab PO QID 11/23/20 06/12/21 Unknown History tablet Physical Exam Vital Signs and Narrative: Vital Signs: Last Vital Signs Temp 99.0 F 07/09/21 16:27 Pulse 84 07/09/21 18:48 Resp 16 07/09/21 18:48 BP 180/91 H 07/09/21 18:48 Pulse Ox 98 07/09/21 18:48 Body Mass Index 23.0 Gen: Appears be in no acute distress HEENT: NCAT, Moist mucosa. Pulmonary: Vesicular breath sounds, fair air entry CVS: Normal S1-S2 Abdomen: BS+, Soft, Nontender Extremities: Warm well perfused; right great toe is vomited and erythematous Neuro: Alert and awake. Results Labs CBC and Chem 7: 07/09/21 17:19 07/09/21 17:13 Labs: Laboratory Results - last 24 hr 07/09/21 07/09/21 07/09/21 17:13 17:18 17:19 MCV 90.6 MCH 31.6 MCHC 34.9 RDW 13.3 Plt Count 138 L MPV 8.7 L Immature Gran % (Auto) 0.6 H Neut % (Auto) 58.2 Lymph % (Auto) 24.3 [place] % (Auto) 14.8 H Eos % (Auto) 1.8 Baso % (Auto) 0.3 Lymph # (Auto) 0.8 L [place] # (Auto) 0.5 Eos # (Auto) 0.1 Baso # (Auto) 0.0 Abs Immat Gran (auto) 0.02 Absolute Neuts (auto) 2.0 Absolute Nucleated RBC 0.000 Nucleated RBC % (auto) 0.0 ESR Anion Gap 16 Estim Creat Clear Calc 46.5 Estimated GFR 60 Random Glucose 557 H* Lactic Acid 1.2 Calcium 9.2 Troponin I High Sens C-Reactive Protein 0.25 B-Natriuretic Peptide Acetone, Qual Small H 07/09/21 07/09/21 17:49 17:59 MCV MCH MCHC RDW Plt Count MPV Immature Gran % (Auto) Neut % (Auto) Lymph % (Auto) [place] % (Auto) Eos % (Auto) Baso % (Auto) Lymph # (Auto) [place] # (Auto) Eos # (Auto) Baso # (Auto) Abs Immat Gran (auto) Absolute Neuts (auto) Absolute Nucleated RBC Nucleated RBC % (auto) ESR 12 Anion Gap Estim Creat Clear Calc Estimated GFR Random Glucose Lactic Acid Calcium Troponin I High Sens 5.2 C-Reactive Protein B-Natriuretic Peptide 25 Acetone, Qual Imaging Radiologist's Impressions: Impressions Chest X-Ray 07/09/21 16:26 IMPRESSION: Unremarkable examination. Foot X-Ray 07/09/21 16:26 IMPRESSION: Mild arthritis at the IP and MTP joints of the great toe. Assessment and Plan (1) Cellulitis: Qualifiers: Laterality: right Site of cellulitis: extremity Site of cellulitis of extremity: toe Qualified Code(s): L03.031 - Cellulitis of right toe Status: Acute (2) Type 2 diabetes mellitus with hyperglycemia: Qualifiers: Diabetes mellitus fdc insulin use: without fdc use Qualified Code(s): E11.65 - Type 2 diabetes mellitus with hyperglycemia Status: Acute (3) Parkinson's disease: Status: Acute (4) Developmental delay, moderate: Status: Acute 71-year-old male with a past medical history of hypertension, hyperlipidemia, diabetes, anxiety, depression, schizophrenia, Parkinson disease, development delay-induced in a skilled nursing, GERD, BPH presented to the hospital with a chief complaint of right great toe pain swelling. Noted to have cellulitis. Admitted for further management. Diabetic foot infection: Right great toe cellulitis. Continue IV vancomycin and cefepime. Patient was on Augmentin as outpatient. Id consult for further recommendations. X-ray showed no acute findings Pain control Diabetes/hyperglycemia: Patient received subcutaneous insulin in the ER. Monitor fingerstick glucose. Will keep the patient on Lantus 20 units and insulin sliding scale. Hypertension/hyperlipidemia: Continue home medications. History of Parkinson disease: c/w carbidopa levodopa History of depression/schizophrenia: Continue home to permit, Depakote, risperidone, mirtazapine History of BPH: Continue home Flomax. DVT prophylaxis: Subcu heparin Code status: Full code-discussed with the patient's guardian Amrit Villa Stroke Does the patient have a stroke diagnosis?: No VTE Prior VTE?: No VTE Risk Level:: Medical - moderate - high VTE Device Contraindication: Treatment Not Indicated VTE Drug Contraindication: N/A - Med Ordered
[2021-07-09 20:02] VITALS: BP 133/85; PULSE 74; RESP 16; O2SAT 96
--- NOTE | 2021-07-09 20:16 | PHA.PROG ---
Admission Date/Time: July 09, 2021 19:50 Indication: SSTI Weight in k.781 kg Adjusted body weight in Kg: [place] body weight in Kg: Obesity Dosing Indication % IBW: Serum Creatinine - Last 168 Hours 07/09/21 17:13 Creatinine 1.20 Estimated CrCl and GFR - Last 168 Hours 07/09/21 17:13 Estim Creat Clear Calc 46.5 Estimated GFR 60 Vancomycin Loading Dose: 1000MG Current Vancomycin Dosing Regimen: 1000 MG Q24H Vancomycin Monitoring using AUC goal of 400 - 600 range with trough as surrogate marker: 416 MG/L.HR Date and Time for next Vancomycin Level to be drawn: RANDOM ON 07/11/21 @18:00 Pharmacist Comments on Vancomycin Plan: Vancomycin dosing will take advantage of fotobabble as a clinical decision support tool that uses Bayesian modeling to calculate individual patient's pharmacokinetic parameters and forecast the patient's drug concentration time course with the target goal AUC 24 range of 400 - 600 mg/L/hr.
[2021-07-09 20:35] LABS: COVID-19 Test Negative (Negative)
[2021-07-09 21:05] LABS: Glucose, Whole Blood 290 mg/dL (60-115)
[2021-07-09 21:37] VITALS: BP 150/85; PULSE 67; RESP 16; TEMP 36.5; O2SAT 99
[2021-07-09 21:39] LABS: Glucose, Whole Blood 260 mg/dL (60-115)
[2021-07-09] MEDS: Heparin Sodium,Porcine 5,000 UNIT/ML VIAL 5000 UNIT SUBCUT (22:07)
[2021-07-09] MEDS: Insulin Lispro 100 UNIT/ML 3 ML VIAL SUBCUT (22:08)
[2021-07-09] MEDS: Insulin Glargine,Hum.rec.anlog 100 UNIT/ML 10 ML VIAL 20 UNIT SUBCUT (22:08)
[2021-07-10] VITALS: BP 113/68; PULSE 81; RESP 17; TEMP 36.4; O2SAT 98
[2021-07-10] MEDS: 0.9 % Sodium Chloride Flush 3 ML SYRINGE IVFLUSH ×2 (01:29→08:11)
[2021-07-10 04:00] VITALS: BP 110/54; PULSE 60; RESP 17; TEMP 36.4; O2SAT 97
[2021-07-10] MEDS: Heparin Sodium,Porcine 5,000 UNIT/ML VIAL 5000 UNIT SUBCUT ×2 (04:22→12:19)
[2021-07-10] MEDS: cefEPime HCl 1 GM in 0.9 % Sodium Chloride 50 ML IV (05:34)
[2021-07-10 05:38] LABS: MANUAL DIFF FLAG NO
[2021-07-10 05:44] LABS: Basophils Percent Auto 0.5 % (0-2); Eosinophils Absolute Auto 0.1 X10*3/uL (0.0-0.4); Eosinophils Percent Auto 1.3 % (0-4); Hematocrit 35.6 % (42-52); Hemoglobin 12.3 g/dl (14.0-18.0); Imm Gran Abs Auto 0.01 X10*3/uL (0.00-0.03); Imm Gran Pct Auto 0.3 % (0.0-0.4); Lymphocytes Absolute Auto 1.3 X10*3/uL (1.2-4.9); Lymphocytes Percent Auto 34.2 % (20-40); Mean Corpuscular HGB Conc 34.6 g/dl (31.0-36.0); Mean Corpuscular Volume 89.7 fL (80-98); Mean Platelet Volume 8.8 fL (9.4-12.4); Monocytes Absolute Auto 0.7 X10*3/uL (0.1-1.2); Monocytes Percent Auto 17.8 % (2-11); Neutrophils Absolute Auto 1.7 X10*3/uL (2.0-8.3); Neutrophils Percent Auto 45.9 % (45-73); Platelet Count 149 X10*3/uL (160-400); Red Blood Count 3.97 X10*6/uL (4.60-5.80); Red Cell Distribution Width 13.3 % (11.0-16.0); White Blood Count 3.7 X10*3/uL (4.8-10.8)
[2021-07-10 06:12] LABS: Anion Gap 13 (12-20); Blood Urea Nitrogen 12 mg/dL (9-16); Calcium 8.8 mg/dL (8.4-10.2); Carbon Dioxide 26 mmol/L (22-29); Chloride 98 mmol/L (96-108); Creatinine Clr Calc Pharmacy 68.1; Estimated Glomerular Filt Rate > 60; Glucose Random 185 mg/dL (60-115); Potassium 3.6 mmol/L (3.3-5.1); Sodium 133 mmol/L (135-145)
[2021-07-10 07:36] VITALS: BP 146/82; PULSE 94; RESP 18; TEMP 36.8; O2SAT 99
[2021-07-10 07:49] LABS: Glucose, Whole Blood 174 mg/dL (60-115)
[2021-07-10] MEDS: Insulin Lispro 100 UNIT/ML 3 ML VIAL SUBCUT ×2 (08:11→12:18)
--- NOTE | 2021-07-10 09:04 | MHC.CM.PN ---
Addendum entered by Kaylee Bruce 07/10/21 09:10: HCP AND GUARDIANSHIP FOUND IN MEDICAL CHART AND PLACED ON PAPER CHART. Original Note: PATIENT LIVES IN A [facility]LTER SETTING. HE AMBULATES WITH THE ASSIST OF A GAIT BELT AND WALKER. STAFF IS AVAILABLE 21/04. STAFF MEMBER KESHAV ([phone]) IS INSURE IF THERE IS A HCP OR GUARDIANSHIP ON FILE AT [facility] AND WILL GET BACK TO THIS SERVICE CAPTAIN IF SO. PLAN IS FOR PATIENT TO RETURN. IMM 07/10 IN CHART
--- NOTE | 2021-07-10 10:56 | P.CDIC_ITS ---
CDI Concurrent Query Documentation Clarification: PHYSICIAN'S DOCUMENTATION REQUEST Date of Query: 07/10/21 1050 Patient Name: Ezekiel Huston Admit Date: 07/09/21 Dear Doctor, A review of the medical record indicates additional documentation may be needed. Please review below and update the documentation accordingly. Clinical Indicators: The following diagnoses or signs and symptoms were noted in the patient record Cellulitis associated with, due to diabetic foot infection Cellulitis not associated with diabetic foot infection Other, please specify if known or undetermined Risk Factors/Clinical Indicators/Treatments Diabetic foot infection/right great toe infection. IV Vancomycin, cefepime IV insulin given in ED noticed more swelling and pain, was already on Augmentin as outpatient. Based on the above, could you clarify in the Progress Notes the appropriate diagnosis, if significant, that supports the above abnormalities and additional evaluation, monitoring, and/or treatment rendered: * Diabetes with skin complication/not related * Other (please specify) * Unable to determine Use of terms such as suspected, likely, concern for, or probable (associated with a specific diagnosis that is being evaluated, monitored, or treated as if it exists) are acceptable and can be coded in the inpatient setting, when documented at the time of discharge. Thank you, Chelsea Fowler [facility], CDIS Extension: [phone] Please use your independent medical judgment in providing your response. THIS QUERY IS PART OF THE PERMANENT MEDICAL RECORD Provider Response: Other Other Diagnosis: Patient does not have cellulitis
[2021-07-10 11:14] VITALS: BP 137/83; PULSE 69; RESP 17; TEMP 36.7; O2SAT 100
[2021-07-10 11:39] LABS: Glucose, Whole Blood 299 mg/dL (60-115)
[2021-07-10 11:57] VITALS: BMI 22.9
--- NOTE | 2021-07-10 11:58 | PC.NURSE ---
Skin assessment completed today. Patient has cellulitis to right great toe. No open areas. Scattered bruising on arms. No other skin issues noted at this time.
--- NOTE | 2021-07-10 12:19 | PM.DS ---
DS: Providers Provider Date of Service: 07/10/21 Date of admission: 07/09/21 19:50 Primary care physician: Claire Bender MD Consults: 07/09/21 19:53 Consult to Infectious Diseases Routine Consulting Provider: Sierra Gracia Reason for consultation: Dm foot infection; Failed out pt abx Attending physician on discharge: Poli Sam Discharging clinician: Leny Damian DS: Diagnosis Discharge Diagnosis (1) Subungual hematoma of great toe: Status: Acute (2) Type 2 diabetes mellitus with hyperglycemia: Status: Acute (3) Parkinson's disease: Status: Acute (4) Developmental delay, moderate: Status: Acute DS: Summary Hospital Course Hospital Course: HP as per admitting provider 71-year-old male with a past medical history of hypertension, hyperlipidemia, GERD, Parkinson disease, diabetes, BPH, history of esophageal spasm, oropharyngeal dysphagia, developmental delay-lives in a intermediate, history of schizophrenia, depression presented to the hospital with a chief complaint of right great toe pain and swelling. Reportedly patient has injured his right great toe few days ago and noted swelling; patient was started on Augmentin as outpatient given concerns for infection.? But the patient has grade to continue to have pain and increased swelling.? Denies any discharge. Denies any fevers. Denies any chest pain palpitations lightheadedness or dizziness. Denies any GI or symptoms. Review of all other systems is negative except mentioned above ER course: Per ER team patient has a right great toe noted to have cellulitis; not concerned for necrosis.? Given IV vancomycin and cefepime.? X-rays were done showed no acute findings or gas. Admitted to the hospital for further management. Also mentioned that patient's glucose was elevated and given insulin subcutaneous.? IV fluids were given.? Noted to have pseudo hyponatremia . Subungal hematoma. Secondary to injury. Patient had hit his toe on a door. Initially presented to the ER on 07/01 and was given Augmentin, was returned back with worsening swelling. During this admission he was treated with vancomycin and cefepime however it did not appear to be cellulitic area rather hematoma from injury. X-ray showed no fracture or dislocation. Patient has had no elevated white blood cell count or fever therefore injury is more likely hematoma then any type infection although patient does have history of uncontrolled diabetes self will continue 5 more days of doxycycline. Patient should follow-up with his primary care provider for further followup. Time Spent with Patient Time attestation: Total time spent providing and/or coordinating discharge services: Discharge coordination time: Greater than 30 minutes Quality: Stroke Does the patient have a stroke diagnosis?: No Physical Exam Vital Signs: Vital Signs: Last Vital Signs Temp 98.1 F 07/10/21 11:14 Pulse 69 07/10/21 11:14 Resp 17 07/10/21 11:14 BP 137/83 07/10/21 11:14 Pulse Ox 100 07/10/21 11:14 Body Mass Index 22.9 Appearing in no acute distress head is normocephalic atraumatic eyes pupils are PERRLA sclera is anicteric mouth throat mucous membranes are intact and moist neck is supple no lymphadenopathy, no JVD noted lung sounds are clear to auscultation heart regular rate rhythm, clear S1, S2 positive bowel sounds, abdomen is soft, nontender neuro patient is alert, confused, no focal deficits DS: Data Data Completed and Pending Labs on day of discharge: Laboratory Results - last 24 hr 07/09/21 07/09/21 07/09/21 17:13 17:18 17:19 WBC 3.4 L RBC 4.14 L Hgb 13.1 L Hct 37.5 L MCV 90.6 MCH 31.6 MCHC 34.9 RDW 13.3 Plt Count 138 L MPV 8.7 L Immature Gran % (Auto) 0.6 H Neut % (Auto) 58.2 Lymph % (Auto) 24.3 [place] % (Auto) 14.8 H Eos % (Auto) 1.8 Baso % (Auto) 0.3 Lymph # (Auto) 0.8 L [place] # (Auto) 0.5 Eos # (Auto) 0.1 Baso # (Auto) 0.0 Abs Immat Gran (auto) 0.02 Absolute Neuts (auto) 2.0 Absolute Nucleated RBC 0.000 Nucleated RBC % (auto) 0.0 ESR Sodium 129 L Potassium 4.5 D Chloride 91 L Carbon Dioxide 27 Anion Gap 16 BUN 13 Creatinine 1.20 Estim Creat Clear Calc 46.5 Estimated GFR 60 POC Glucose Random Glucose 557 H* Lactic Acid 1.2 Calcium 9.2 Troponin I High Sens C-Reactive Protein 0.25 B-Natriuretic Peptide Acetone, Qual Small H COVID-19 (MICHELLE) COVID-19 Clin Com 07/09/21 07/09/21 07/09/21 17:49 17:59 20:02 WBC RBC Hgb Hct MCV MCH MCHC RDW Plt Count MPV Immature Gran % (Auto) Neut % (Auto) Lymph % (Auto) [place] % (Auto) Eos % (Auto) Baso % (Auto) Lymph # (Auto) [place] # (Auto) Eos # (Auto) Baso # (Auto) Abs Immat Gran (auto) Absolute Neuts (auto) Absolute Nucleated RBC Nucleated RBC % (auto) ESR 12 Sodium Potassium Chloride Carbon Dioxide Anion Gap BUN Creatinine Estim Creat Clear Calc Estimated GFR POC Glucose Random Glucose Lactic Acid Calcium Troponin I High Sens 5.2 C-Reactive Protein B-Natriuretic Peptide 25 Acetone, Qual COVID-19 (MICHELLE) Negative COVID-19 fintonic See Note 07/09/21 07/09/21 07/10/21 21:01 21:33 05:25 WBC 3.7 L RBC 3.97 L Hgb 12.3 L Hct 35.6 L MCV 89.7 MCH 31.0 MCHC 34.6 RDW 13.3 Plt Count 149 L MPV 8.8 L Immature Gran % (Auto) 0.3 Neut % (Auto) 45.9 Lymph % (Auto) 34.2 [place] % (Auto) 17.8 H Eos % (Auto) 1.3 Baso % (Auto) 0.5 Lymph # (Auto) 1.3 [place] # (Auto) 0.7 Eos # (Auto) 0.1 Baso # (Auto) 0.0 Abs Immat Gran (auto) 0.01 Absolute Neuts (auto) 1.7 L Absolute Nucleated RBC 0.000 Nucleated RBC % (auto) 0.0 ESR Sodium Potassium Chloride Carbon Dioxide Anion Gap BUN Creatinine Estim Creat Clear Calc Estimated GFR POC Glucose 290 H 260 H Random Glucose Lactic Acid Calcium Troponin I High Sens C-Reactive Protein B-Natriuretic Peptide Acetone, Qual COVID-19 (MICHELLE) COVID-19 Clin Com 07/10/21 07/10/21 07/10/21 05:25 07:34 11:13 WBC RBC Hgb Hct MCV MCH MCHC RDW Plt Count MPV Immature Gran % (Auto) Neut % (Auto) Lymph % (Auto) [place] % (Auto) Eos % (Auto) Baso % (Auto) Lymph # (Auto) [place] # (Auto) Eos # (Auto) Baso # (Auto) Abs Immat Gran (auto) Absolute Neuts (auto) Absolute Nucleated RBC Nucleated RBC % (auto) ESR Sodium 133 L Potassium 3.6 Chloride 98 Carbon Dioxide 26 Anion Gap 13 BUN 12 Creatinine 0.82 Estim Creat Clear Calc 68.1 Estimated GFR > 60 POC Glucose 174 H 299 H Random Glucose 185 H D Lactic Acid Calcium 8.8 Troponin I High Sens C-Reactive Protein B-Natriuretic Peptide Acetone, Qual COVID-19 (MICHELLE) COVID-19 Clin Com Discharge Plan Discharge Anticipated Discharge Date/Time: 07/10/21 11:53 Patient Disposition: Home, Self-Care Discharge Diagnosis: Great toe hematoma Diabetes with hyperglycemia Referrals: Po,Claire Christianson MD [Primary Care Provider] - 1 Week Discharge Medications: New doxycycline hyclate 100 mg tablet 100 mg PO BID Qty: 10 RF: 0 Continued sennosides-docusate sodium [Senna-S] 8.6-50 mg tablet 2 tab-cap PO BEDTIME 90 Days Qty: 180 RF: 2 melatonin 5 mg capsule 5 mg PO .QHS 90 Days Qty: 90 RF: 3 acetaminophen 325 mg tablet 650 mg PO Q8H PRN (Reason: fever or pain) 90 Days Qty: 90 RF: 0 aspirin [Adult Low Dose Aspirin] 81 mg tablet,delayed release (DR/EC) 81 mg PO DAILY 90 Days Qty: 90 RF: 3 atorvastatin 20 mg tablet 20 mg PO BEDTIME Qty: 90 RF: 3 duloxetine 20 mg capsule,delayed release(DR/EC) 20 mg PO QAM 90 Days Qty: 90 RF: 2 gabapentin 300 mg capsule 300 mg PO BEDTIME Qty: 90 RF: 3 topiramate [Topamax] 50 mg tablet 50 mg PO BID 90 Days Qty: 180 RF: 2 divalproex [Depakote] 500 mg tablet,delayed release (DR/EC) 500 mg PO BID 90 Days Qty: 180 RF: 1 tamsulosin 0.4 mg capsule 0.8 mg PO DAILY 90 Days Qty: 180 RF: 2 divalproex 125 mg capsule, delayed rel sprinkle 2 cap PO TID RF: 0 risperidone 1 mg tablet 1 mg PO BID RF: 0 carbidopa-levodopa 25-100 mg tablet 1.5 tab PO QID RF: 0 (DME) Briefs Medium Misc See Rx Instructions .ROUTE .MEDSUPPLY Qty: 96 RF: 8 triamcinolone acetonide 0.1 % cream 1 appl topical BID 7 Days Qty: 30 RF: 0 diphenhydramine HCl [Benadryl Allergy] 25 mg tablet 25 mg PO BEDTIME PRN (Reason: sleep) Qty: 4 RF: 0 mirtazapine 15 mg tablet 15 mg PO BID RF: 0 benztropine 0.5 mg tablet 0.5 mg PO BID RF: 0 Discontinued amoxicillin-pot clavulanate [Augmentin] 875-125 mg tablet 1 tab PO BID Qty: 10 RF: 0 Discharge Orders: Discharge Order (Routine); Ordered 07/10/21 Ordered By: Leny Damian Diet: advance to usual diet Activity on Discharge: As tolerated Stand Alone Forms: Patient Portal Discharge page Care Plan Goals: Resolution of hematoma Health Concerns: Right great toe hematoma Diabetes with hyperglycemia Plan of Treatment: Doxycycline for 5 more days Monitor condition of great toe hematoma. Follow-up with your primary care provider as needed Assessment: see discharge summary
--- NOTE | 2021-07-10 13:11 | MHC.CM.PN ---
[facility] ([phone]) WILL PROVIDE TRANSPORT HOME FOR 14:00. RN AND UNIT AWARE.
--- NOTE | 2021-07-10 13:52 | PHA.MEDREC ---
Pharmacy Consult ? Medication Reconciliation Pharmacy has completed the medication reconciliation. Spoke with Smiley from the patient half-way. There are no remarkable issues for provider's attention. Yamile Kinney, MirD
== END 2021-07-10 15:05 | disposition home or self-care (01) | DRG 605 ==
LOC: HO.ED 19:50 → HO.EDOVER 20:16 → HO.S3 20:46
PROVIDERS: Nurse Practitioner Family; Admitting Provider Hospitalist; Emergency Provider Internal Medicine; PCP Internal Medicine; Visit Provider Nurse Practitioner Acute Care
DX: S90.211A Contusion of right great toe with damage to nail, initial encounter (principal); E11.65 Type 2 diabetes mellitus with hyperglycemia; G20 Parkinson's disease; W22.8XXA Striking against or struck by other objects, initial encounter; Y92.099 Unspecified place in other non-institutional residence as the place of occurrence of the external cause; R62.50 Unspecified lack of expected normal physiological development in childhood; I10 Essential (primary) hypertension; E78.5 Hyperlipidemia, unspecified; Z20.822 Contact with and (suspected) exposure to COVID-19; Z79.82 Long term (current) use of aspirin; Z79.899 Other long term (current) drug therapy
CPT/HCPCS: 36415; 71045; 73630; 80048; 82009; 82947; 83605; 83880; 84484; 85025; 85652; 86140; 87040; 87635; 93005; 96365; 96375; 99285; 99291; J0692; J3370

== ENCOUNTER 2021-07-23 17:00 | Emergency (ER) | payer MEDICARE, MEDICAID, SELFPAY ==
--- NOTE | ~2021-07-23 | XR_ITS ---
EXAMINATION: XR CHEST CLINICAL INFORMATION: Cough COMPARISON: 07/09/2021 TECHNIQUE: Frontal view of the chest was obtained. FINDINGS: Lungs are mildly hypoinflated and there is some minimal left basilar atelectasis. No significant abnormality is noted involving the heart, lungs, mediastinum, bony thorax or soft tissues. XR/XR chest 1V IMPRESSION: No acute intrathoracic disease.
[2021-07-23 18:01] VITALS: BP 153/68; PULSE 84; RESP 16; TEMP 36.8; O2SAT 97; BMI 21.9
[2021-07-23 18:14] LABS: Glucose, Whole Blood 347 mg/dL (60-115)
--- NOTE | 2021-07-23 18:41 | ED_ITS ---
HPI - General Adult General Chief complaint: Allergic Reaction Stated complaint: diabetic worker from home with pt states pt off Time Seen by Provider: 07/23/21 18:41 Source: other ([employer]) Mode of arrival: ambulatory Limitations: altered mental status History of Present Illness HPI narrative: Patient 71-year-old schizophrenic mentally challenged with history of depression, hypertension brought by staff for patient been urinating a lot seen by PCP today and HGB A1c was 14 blood sugar was elevated to 347. W hich has been elevated since 07/09. Patient for Staph urinating a lot and drinking lot of water. No new medications. Patient was prescribed metformin but unable to give it to him hence pt came to the ER. No vomiting no diarrhea no abdominal distension Related Data Home Medications Medication Instructions Recorded Confirmed benztropine 0.5 mg tablet 0.5 mg PO BID 06/27/20 07/23/21 mirtazapine 15 mg tablet 15 mg PO BID tab 06/27/20 07/23/21 risperidone 1 mg tablet 1 mg PO BID 08/15/20 07/23/21 carbidopa 25 mg-levodopa 100 mg 1.5 tab PO QID 11/23/20 07/23/21 tablet duloxetine 20 mg capsule,delayed 1 cap PO BEDTIME 07/10/21 07/23/21 release melatonin 5 mg tablet 5 mg PO BEDTIME 07/23/21 07/23/21 Previous Rx's Medication Instructions Recorded diaper,brief,adult,disposable #96 ea 11/23/20 (Briefs Medium) acetaminophen 325 mg tablet 650 mg PO Q8H PRN 90 Days #90 tab 05/14/21 aspirin 81 mg tablet,delayed 81 mg PO DAILY 90 Days #90 tab 05/14/21 release (Adult Low Dose Aspirin) gabapentin 300 mg capsule 300 mg PO BEDTIME #90 cap 05/14/21 topiramate 50 mg tablet (Topamax) 50 mg PO BID 90 Days #180 tab 06/19/21 divalproex 500 mg tablet,delayed 500 mg PO BID 90 Days #180 tab 06/27/21 release (Depakote) tamsulosin 0.4 mg capsule 0.8 mg PO DAILY 90 Days #180 cap 06/27/21 atorvastatin 20 mg tablet 20 mg PO BEDTIME #90 tab 07/16/21 metformin 500 mg tablet 500 mg PO BID 30 Days #60 tab 07/19/21 lancets 28 gauge (Prodigy Lancets) #100 ea 07/20/21 lancing device (Prodigy Lancing #1 ea 07/20/21 Device) blood sugar diagnostic #70 ea 07/23/21 blood sugar diagnostic (Prodigy No #100 ea 07/23/21 Coding) blood-glucose meter (Prodigy #1 ea 07/23/21 Autocode Meter) lancets 28 gauge (Prodigy Lancets) #100 ea 07/23/21 metformin 500 mg tablet 500 mg PO BID #60 tab 07/23/21 Allergies Allergy/AdvReac Type Severity Reaction Status Date / Time perfume Allergy Intermediate ITCHING Verified 07/23/21 11:08 Review of Systems Review of Systems: Yes all other systems are reviewed and are negative [facility] Past Medical History Medical History Annual physical exam BPH with obstruction/lower urinary tract symptoms Depression Developmental delay, moderate Dysphagia Gastroesophageal reflux disease Hypercholesteremia Hypertension Metabolic encephalopathy Occipital infarction Parkinson's disease Schizophrenia Tubular adenoma of colon Type 2 diabetes mellitus with hyperglycemia Vitamin D deficiency Surgical History History of circumcision History of colonoscopy History of prostate surgery Family History Family History Father Type II diabetes mellitus Mother Type II diabetes mellitus Social History Social History Household Members: Other Housing: Other Housing Other:: HALFWAY Alcohol intake: never Patient Tobacco Use Status: Never used Tobacco e-Cigarette/Vaping Use: Never Used Second Hand Smoke Exposure: No Advance Directives: No Advance Directives Information Provided: Yes service: No Current occupational status: disabled Physical Exam Vital Signs: Vital Signs: Last Vital Signs Temp 98.2 F 07/23/21 18:01 Pulse 84 07/23/21 18:01 Resp 16 07/23/21 18:01 BP 153/68 H 07/23/21 18:01 Pulse Ox 97 07/23/21 18:01 Body Mass Index 21.9 Appearance: Alert. Mentally challenged Eyes: PERRLA, ENT: Pharynx normal. Oral Mucosa moist Neck: Normal inspection. Neck supple. CVS: Normal heart rate and rhythm. Pulses normal. Respiratory: No respiratory distress. Equal air entry bilateral, no whe ezing/rales/rhonchi Abdomen: Soft and nontender. Bowel sounds are present, no mass palpable, no CVA tenderness Skin: Skin warm and dry. Normal skin color. Normal skin turgor. Extremities: 2+ lower extremity edema. No calf tenderness Neuro: Alert and awake moving all 4 extremities Medical Decision Making MDM Narrative Medical decision making narrative: Patient new onset diabetic start him on metformin blood sugar improved Lab Data Lab results reviewed: Yes I reviewed the patient's lab results. Result diagrams: 07/23/21 19:40 07/23/21 19:40 Labs: Lab Results 07/23/21 07/23/21 07/23/21 Range/Units 18:09 19:40 19:40 WBC 4.3 L (4.8-10.8) X10*3/uL RBC 3.90 L (4.60-5.80) X10*6/uL Hgb 12.6 L (14.0-18.0) g/dl Hct 36.6 L (42-52) % MCV 93.8 (80-98) fL MCH 32.3 (27.0-33.0) pg MCHC 34.4 (31.0-36.0) g/dl RDW 14.4 (11.0-16.0) % Plt Count 182 (160-400) X10*3/uL MPV 8.1 L (9.4-12.4) fL Immature Gran % (Auto) 0.5 H (0.0-0.4) % Neut % (Auto) 63.5 (45-73) % Lymph % (Auto) 20.6 (20-40) % [place] % (Auto) 13.8 H (2-11) % Eos % (Auto) 0.9 (0-4) % Baso % (Auto) 0.7 (0-2) % Lymph # (Auto) 0.9 L (1.2-4.9) X10*3/uL [place] # (Auto) 0.6 (0.1-1.2) X10*3/uL Eos # (Auto) 0.0 (0.0-0.4) X10*3/uL Baso # (Auto) 0.0 (0.0-0.2) X10*3/uL Abs Immat Gran (auto) 0.02 (0.00-0.03) X10*3/uL Absolute Neuts (auto) 2.7 (2.0-8.3) X10*3/uL Absolute Nucleated RBC 0.000 (0.0-0.012) X10*3/uL Nucleated RBC % (auto) 0.0 (0.0-0.2) /100WBC Sodium 134 L (135-145) mmol/L Potassium 4.5 D (3.3-5.1) mmol/L Chloride 97 (96-108) mmol/L Carbon Dioxide 28 (22-29) mmol/L Anion Gap 14 (12-20) BUN 12 (9-16) mg/dL Creatinine 1.01 (0.5-1.4) mg/dL Estim Creat Clear Calc 54.2 Estimated GFR > 60 POC Glucose 347 H (60-115) mg/dL Random Glucose 352 H* (60-115) mg/dL Calcium 9.1 (8.4-10.2) mg/dL Magnesium 2.0 (1.6-2.6) mg/dL Total Bilirubin 0.5 (0.0-1.0) mg/dL AST 14 (5-37) U/L ALT < 6 (0-40) U/L Alkaline Phosphatase 82 (39-117) U/L B-Natriuretic Peptide (<100) pg/mL Total Protein 6.2 L (6.5-8.0) g/dL Albumin 3.8 (3.5-5.0) g/dL 07/23/21 07/23/21 Range/Units 19:40 21:10 WBC (4.8-10.8) X10*3/uL RBC (4.60-5.80) X10*6/uL Hgb (14.0-18.0) g/dl Hct (42-52) % MCV (80-98) fL MCH (27.0-33.0) pg MCHC (31.0-36.0) g/dl RDW (11.0-16.0) % Plt Count (160-400) X10*3/uL MPV (9.4-12.4) fL Immature Gran % (Auto) (0.0-0.4) % Neut % (Auto) (45-73) % Lymph % (Auto) (20-40) % [place] % (Auto) (2-11) % Eos % (Auto) (0-4) % Baso % (Auto) (0-2) % Lymph # (Auto) (1.2-4.9) X10*3/uL [place] # (Auto) (0.1-1.2) X10*3/uL Eos # (Auto) (0.0-0.4) X10*3/uL Baso # (Auto) (0.0-0.2) X10*3/uL Abs Immat Gran (auto) (0.00-0.03) X10*3/uL Absolute Neuts (auto) (2.0-8.3) X10*3/uL Absolute Nucleated RBC (0.0-0.012) X10*3/uL Nucleated RBC % (auto) (0.0-0.2) /100WBC Sodium (135-145) mmol/L Potassium (3.3-5.1) mmol/L Chloride (96-108) mmol/L Carbon Dioxide (22-29) mmol/L Anion Gap (12-20) BUN (9-16) mg/dL Creatinine (0.5-1.4) mg/dL Estim Creat Clear Calc Estimated GFR POC Glucose 280 H (60-115) mg/dL Random Glucose (60-115) mg/dL Calcium (8.4-10.2) mg/dL Magnesium (1.6-2.6) mg/dL Total Bilirubin (0.0-1.0) mg/dL AST (5-37) U/L ALT (0-40) U/L Alkaline Phosphatase (39-117) U/L B-Natriuretic Peptide 24 (<100) pg/mL Total Protein (6.5-8.0) g/dL Albumin (3.5-5.0) g/dL Discharge Plan Discharge Clinical Impression: Diabetes type 2, uncontrolled Qualifiers: Glycemic state: with hyperglycemia Qualified Code(s): E11.65 - Type 2 diabetes mellitus with hyperglycemia Patient Disposition: Home, Self-Care Instructions: Type 2 Diabetes in Adults: New Diagnosis (ED) Additional Instructions: Drink plenty of fluids Take metformin 1 tablet 500 mg twice daily as prescribed Check blood sugar twice daily report to the ER/PCP with higher than 300mg Prescriptions: New metformin 500 mg tablet 500 mg PO BID Qty: 60 RF: 0 No Action acetaminophen 325 mg tablet 650 mg PO Q8H PRN (Reason: fever or pain) 90 Days Qty: 90 RF: 0 aspirin [Adult Low Dose Aspirin] 81 mg tablet,delayed release (DR/EC) 81 mg PO DAILY 90 Days Qty: 90 RF: 3 gabapentin 300 mg capsule 300 mg PO BEDTIME Qty: 90 RF: 3 topiramate [Topamax] 50 mg tablet 50 mg PO BID 90 Days Qty: 180 RF: 2 divalproex [Depakote] 500 mg tablet,delayed release (DR/EC) 500 mg PO BID 90 Days Qty: 180 RF: 1 tamsulosin 0.4 mg capsule 0.8 mg PO DAILY 90 Days Qty: 180 RF: 2 atorvastatin 20 mg tablet 20 mg PO BEDTIME Qty: 90 RF: 3 metformin 500 mg tablet 500 mg PO BID 30 Days Qty: 60 RF: 1 (DME) lancing device [Prodigy Lancing Device] Misc See Rx Instructions .Route Qty: 1 RF: 0 (DME) lancets [Prodigy Lancets] 28 gauge misc See Rx Instructions .Route Qty: 100 RF: 3 duloxetine 20 mg capsule,delayed release(DR/EC) 1 cap PO BEDTIME RF: 0 risperidone 1 mg tablet 1 mg PO BID RF: 0 carbidopa-levodopa 25-100 mg tablet 1.5 tab PO QID RF: 0 (DME) Briefs Medium Misc See Rx Instructions .ROUTE .MEDSUPPLY Qty: 96 RF: 8 melatonin 5 mg tablet 5 mg PO BEDTIME RF: 0 (DME) Prodigy No Coding Strip See Rx Instructions .Route Qty: 100 RF: 6 (DME) blood-glucose meter [Prod[employer] Autocode Meter] Kit See Rx Instructions .Route Qty: 1 RF: 0 (DME) blood sugar diagnostic Strip See Rx Instructions .Route Qty: 70 RF: 0 (DME) lancets [Prodigy Lancets] 28 gauge misc See Rx Instructions .Route Qty: 100 RF: 0 mirtazapine 15 mg tablet 15 mg PO BID RF: 0 benztropine 0.5 mg tablet 0.5 mg PO BID RF: 0 Interventions: ED Discharge Assessment Last Done: 07/23/21 22:00 Discharge Date/Time: 07/23/21 22:00
[2021-07-23 19:45] LABS: MANUAL DIFF FLAG NO
[2021-07-23 19:48] LABS: Basophils Percent Auto 0.7 % (0-2); Eosinophils Percent Auto 0.9 % (0-4); Hematocrit 36.6 % (42-52); Hemoglobin 12.6 g/dl (14.0-18.0); Imm Gran Abs Auto 0.02 X10*3/uL (0.00-0.03); Imm Gran Pct Auto 0.5 % (0.0-0.4); Lymphocytes Absolute Auto 0.9 X10*3/uL (1.2-4.9); Lymphocytes Percent Auto 20.6 % (20-40); Mean Corpuscular HGB Conc 34.4 g/dl (31.0-36.0); Mean Corpuscular Hemoglobin 32.3 pg (27.0-33.0); Mean Corpuscular Volume 93.8 fL (80-98); Mean Platelet Volume 8.1 fL (9.4-12.4); Monocytes Absolute Auto 0.6 X10*3/uL (0.1-1.2); Monocytes Percent Auto 13.8 % (2-11); Neutrophils Absolute Auto 2.7 X10*3/uL (2.0-8.3); Neutrophils Percent Auto 63.5 % (45-73); Platelet Count 182 X10*3/uL (160-400); Red Cell Distribution Width 14.4 % (11.0-16.0); White Blood Count 4.3 X10*3/uL (4.8-10.8)
[2021-07-23 20:07] LABS: B Type Natriuretic Peptide 24 pg/mL (<100)
[2021-07-23 20:08] LABS: Alanine Aminotransferase < 6 U/L (0-40); Albumin Level 3.8 g/dL (3.5-5.0); Alkaline Phosphatase 82 U/L (39-117); Anion Gap 14 (12-20); Aspartate Amino Transferase 14 U/L (5-37); Bilirubin Total 0.5 mg/dL (0.0-1.0); Blood Urea Nitrogen 12 mg/dL (9-16); Calcium 9.1 mg/dL (8.4-10.2); Carbon Dioxide 28 mmol/L (22-29); Chloride 97 mmol/L (96-108); Creatinine Clr Calc Pharmacy 54.2; Estimated Glomerular Filt Rate > 60; Glucose Random 352 mg/dL (60-115); Potassium 4.5 mmol/L (3.3-5.1); Sodium 134 mmol/L (135-145); Total Protein 6.2 g/dL (6.5-8.0)
[2021-07-23] MEDS: Insulin Lispro 100 UNIT/ML 3 ML VIAL 10 UNIT SUBCUT (20:36)
[2021-07-23 21:16] LABS: Glucose, Whole Blood 280 mg/dL (60-115)
[2021-07-23] MEDS: metFORMIN HCl 500 MG TABLET PO (21:44)
== END 2021-07-23 22:00 | disposition home or self-care (01) ==
PROVIDERS: Emergency Provider Internal Medicine; PCP Internal Medicine
DX: E11.65 Type 2 diabetes mellitus with hyperglycemia (principal); I10 Essential (primary) hypertension; F20.9 Schizophrenia, unspecified; G20 Parkinson's disease
CPT/HCPCS: 36415; 71045; 80053; 82947; 83735; 83880; 85025; 99283

== ENCOUNTER 2021-07-25 09:13 | Emergency (ER) | payer MEDICARE, MEDICAID, SELFPAY ==
[2021-07-25 09:21] VITALS: BP 139/70; PULSE 76; RESP 18; TEMP 36.5; O2SAT 99; BMI 24.0
[2021-07-25 09:26] LABS: Glucose, Whole Blood 386 mg/dL (60-115)
[2021-07-25] MEDS: 0.9 % Sodium Chloride 1,000 ML 999 ML IVCONT ×2 (09:41→11:45)
[2021-07-25] MEDS: Insulin Lispro 100 UNIT/ML 3 ML VIAL 10 UNIT SUBCUT (09:41)
[2021-07-25 09:46] LABS: MANUAL DIFF FLAG NO
--- NOTE | 2021-07-25 09:46 | ED_ITS ---
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 Glucose was 498 this morning. He was seen here 2 days ago for the same. This is his 4th ER visit here this month. senior care reports he was recently prescribed metformin however this was not able to get filled and started until today. He is currently on antibiotics for a great toe infection, he was seen here twice earlier this month for this. The staff member reports that his sugars have been elevated since he had the infection in his great toe. Patient reports not feeling good lately but any able to elaborate. He is crying and anxious about blood work. He is a poor historian and unreliable. MD complaint: abnormal lab Initial visit (ago): week(s) Initial visit for: cellulitis and other (Great toe infection after minor trauma) Returns today for: cellulitis follow-up Description of abnormal result: Hyperglycemia 498 Symptoms since prior visit: no new symptoms Associated symptoms: none Treatments prior to arrival: dressings Related Data Home Medications Medication Instructions Recorded Confirmed benztropine 0.5 mg tablet 0.5 mg PO BID 06/27/20 07/25/21 mirtazapine 15 mg tablet 15 mg PO BID tab 06/27/20 07/25/21 risperidone 1 mg tablet 1 mg PO BID 08/15/20 07/25/21 carbidopa 25 mg-levodopa 100 mg 1.5 tab PO QID 11/23/20 07/25/21 tablet duloxetine 20 mg capsule,delayed 1 cap PO BEDTIME 07/10/21 07/25/21 release melatonin 5 mg tablet 5 mg PO BEDTIME 07/23/21 07/25/21 Previous Rx's Medication Instructions Recorded diaper,brief,adult,disposable #96 ea 11/23/20 (Briefs Medium) acetaminophen 325 mg tablet 650 mg PO Q8H PRN 90 Days #90 tab 05/14/21 aspirin 81 mg tablet,delayed 81 mg PO DAILY 90 Days #90 tab 05/14/21 release (Adult Low Dose Aspirin) gabapentin 300 mg capsule 300 mg PO BEDTIME #90 cap 05/14/21 topiramate 50 mg tablet (Topamax) 50 mg PO BID 90 Days #180 tab 06/19/21 divalproex 500 mg tablet,delayed 500 mg PO BID 90 Days #180 tab 06/27/21 release (Depakote) tamsulosin 0.4 mg capsule 0.8 mg PO DAILY 90 Days #180 cap 06/27/21 atorvastatin 20 mg tablet 20 mg PO BEDTIME #90 tab 07/16/21 lancets 28 gauge (Prodigy Lancets) #100 ea 07/20/21 lancing device (Prodigy Lancing #1 ea 07/20/21 Device) blood sugar diagnostic #70 ea 07/23/21 blood sugar diagnostic (Prodigy No #100 ea 07/23/21 Coding) blood-glucose meter (Prodigy #1 ea 07/23/21 Autocode Meter) lancets 28 gauge (Prodigy Lancets) #100 ea 07/23/21 metformin 500 mg tablet 500 mg PO BID #60 tab 07/23/21 Allergies Allergy/AdvReac Type Severity Reaction Status Date / Time perfume Allergy Intermediate ITCHING Verified 07/23/21 11:08 Review of Systems Review of Systems: Yes Unobtainable due to mental condition (Schizophrenia, developmental delay, poor historian) [facility] Past Medical History Medical History Annual physical exam BPH with obstruction/lower urinary tract symptoms Depression Developmental delay, moderate Dysphagia Gastroesophageal reflux disease Hypercholesteremia Hypertension Metabolic encephalopathy Occipital infarction Parkinson's disease Schizophrenia Tubular adenoma of colon Type 2 diabetes mellitus with hyperglycemia Vitamin D deficiency Surgical History History of circumcision History of colonoscopy History of prostate surgery Family History Family History Father Type II diabetes mellitus Mother Type II diabetes mellitus Social History Social History Household Members: Other Housing: Other Housing Other:: [facility] Alcohol intake: never Patient Tobacco Use Status: Never used Tobacco e-Cigarette/Vaping Use: Never Used Second Hand Smoke Exposure: No Use of substances other than those prescribed or required for medical reasons: No Advance Directives: Yes Advance Directives on File: Yes Advance Directives Date on File: 07/11/21 service: No Current occupational status: disabled Physical Exam Vital Signs: Vital Signs: Last Vital Signs Temp 97.7 F 07/25/21 09:21 Pulse 71 07/25/21 12:46 Resp 14 07/25/21 12:46 BP 120/72 07/25/21 12:46 Pulse Ox 99 07/25/21 12:46 Body Mass Index 24.0 Appearance: Alert. Oriented X1. No acute distress. Eyes: Pupils equal, round and reactive to light. ENT: Pharynx normal. Neck: Normal inspection. Neck supple. CVS: Normal heart rate and rhythm. Pulses normal. Respiratory: No respiratory distress. Breath sounds normal. Abdomen: Soft and nontender. +BS x4 Skin: Skin warm and dry. Normal skin color. Normal skin turgor. No rashes. Extremities: 2+ pitting lower extremity edema bilaterally, no erythema or w armth. Right great toe with healing cellulitis, dry flaky skin, no erythema or warmth. No purulent drainage. Neuro: Oriented X 1. No motor deficit. No sensory deficit. Agitated and yelling out at times, redirectable. Course Course Course Narrative: 71-year-old male presenting with hyperglycemia. Sugar was close to 500 this morning. He recently got started on metformin was unable to get it filled until this morning. He has an active infection of his right great toe and is on antibiotics. The assisted employee reports poorly controlled glucose in the setting of this infection. It is overall getting better with antibiotics. Patient reports just not feeling well, and denies any chest pain, shortness of breath, fever, chills, nausea, vomiting, abdominal pain. He is a poor historian. Will get metabolic workup, hydrate with IV fluids and give a dose of subQ insulin now. Sugar on arrival is in 300 range, doubt DKA. He is breathing comfortably in no distress. Reevaluation(s) Reevaluation #1: Labs show no anion gap. No evidence of DKA. He is getting hydrated and subcu insulin. Glucose on serum was 450. It improved to the 300s again with subcu insulin. IV fluids infusing. Will recheck sugars after fluids are complete. Reevaluation #2: Glucose improved to 270s. Will plan to discharge home once urinalysis is complete. Reevaluation #3: Urinalysis is negative for infection. Patient is stable for discharge home with plan to continue his previously prescribed metformin and follow up with his outpatient PCP for further management of his diabetes. MDM - Recheck/Abnormal Lab/Rx Lab Data Result diagrams: 07/25/21 09:43 07/25/21 09:43 Labs: Lab Results 07/25/21 07/25/21 07/25/21 Range/Units 09:22 09:43 09:43 WBC 2.8 L (4.8-10.8) X10*3/uL RBC 3.88 L (4.60-5.80) X10*6/uL Hgb 12.4 L (14.0-18.0) g/dl Hct 37.2 L (42-52) % MCV 95.9 (80-98) fL MCH 32.0 (27.0-33.0) pg MCHC 33.3 (31.0-36.0) g/dl RDW 14.6 (11.0-16.0) % Plt Count 157 L (160-400) X10*3/uL MPV 8.3 L (9.4-12.4) fL Immature Gran % (Auto) 0.4 (0.0-0.4) % Neut % (Auto) 45.6 (45-73) % Lymph % (Auto) 33.1 (20-40) % Bates % (Auto) 18.7 H (2-11) % Eos % (Auto) 1.8 (0-4) % Baso % (Auto) 0.4 (0-2) % Lymph # (Auto) 0.9 L (1.2-4.9) X10*3/uL Bates # (Auto) 0.5 (0.1-1.2) X10*3/uL Eos # (Auto) 0.1 (0.0-0.4) X10*3/uL Baso # (Auto) 0.0 (0.0-0.2) X10*3/uL Abs Immat Gran (auto) 0.01 (0.00-0.03) X10*3/uL Absolute Neuts (auto) 1.3 L (2.0-8.3) X10*3/uL Absolute Nucleated RBC 0.000 (0.0-0.012) X10*3/uL Nucleated RBC % (auto) 0.0 (0.0-0.2) /100WBC Sodium 132 L (135-145) mmol/L Potassium 4.1 (3.3-5.1) mmol/L Chloride 96 (96-108) mmol/L Carbon Dioxide 27 (22-29) mmol/L Anion Gap 13 (12-20) BUN 20 H D (9-16) mg/dL Creatinine 1.30 (0.5-1.4) mg/dL Estim Creat Clear Calc 43.0 Estimated GFR 54 POC Glucose 386 H* (60-115) mg/dL Random Glucose 450 H* (60-115) mg/dL Calcium 8.9 (8.4-10.2) mg/dL Magnesium 2.0 (1.6-2.6) mg/dL Total Bilirubin 0.6 (0.0-1.0) mg/dL Direct Bilirubin 0.2 (0.0-0.5) mg/dL AST 16 (5-37) U/L ALT < 6 (0-40) U/L Alkaline Phosphatase 83 (39-117) U/L Total Protein 6.1 L (6.5-8.0) g/dL Albumin 3.8 (3.5-5.0) g/dL Urine Color Urine Appearance Urine pH (5.0-8.0) Ur Specific [place] (1.005-1.025) Urine Protein (NEG-TRACE) MG/DL Urine Glucose (UA) (NEG) MG/DL Urine Ketones (NEG) MG/DL Urine Blood (NEG) Urine Nitrite (NEG) Ur Leukocyte Esterase (NEG) Urine RBC (0) /HPF Urine WBC (0-4) /HPF Ur Squamous Epith Cells /LPF Urine Bacteria /LPF COVID-19 (MICHELLE) (Negative) COVID-19 Clin Com 07/25/21 07/25/21 07/25/21 Range/Units 09:43 11:13 12:43 WBC (4.8-10.8) X10*3/uL RBC (4.60-5.80) X10*6/uL Hgb (14.0-18.0) g/dl Hct (42-52) % MCV (80-98) fL MCH (27.0-33.0) pg MCHC (31.0-36.0) g/dl RDW (11.0-16.0) % Plt Count (160-400) X10*3/uL MPV (9.4-12.4) fL Immature Gran % (Auto) (0.0-0.4) % Neut % (Auto) (45-73) % Lymph % (Auto) (20-40) % Bates % (Auto) (2-11) % Eos % (Auto) (0-4) % Baso % (Auto) (0-2) % Lymph # (Auto) (1.2-4.9) X10*3/uL Bates # (Auto) (0.1-1.2) X10*3/uL Eos # (Auto) (0.0-0.4) X10*3/uL Baso # (Auto) (0.0-0.2) X10*3/uL Abs Immat Gran (auto) (0.00-0.03) X10*3/uL Absolute Neuts (auto) (2.0-8.3) X10*3/uL Absolute Nucleated RBC (0.0-0.012) X10*3/uL Nucleated RBC % (auto) (0.0-0.2) /100WBC Sodium (135-145) mmol/L Potassium (3.3-5.1) mmol/L Chloride (96-108) mmol/L Carbon Dioxide (22-29) mmol/L Anion Gap (12-20) BUN (9-16) mg/dL Creatinine (0.5-1.4) mg/dL Estim Creat Clear Calc Estimated GFR POC Glucose 316 H 278 H (60-115) mg/dL Random Glucose (60-115) mg/dL Calcium (8.4-10.2) mg/dL Magnesium (1.6-2.6) mg/dL Total Bilirubin (0.0-1.0) mg/dL Direct Bilirubin (0.0-0.5) mg/dL AST (5-37) U/L ALT (0-40) U/L Alkaline Phosphatase (39-117) U/L Total Protein (6.5-8.0) g/dL Albumin (3.5-5.0) g/dL Urine Color Urine Appearance Urine pH (5.0-8.0) Ur Specific [place] (1.005-1.025) Urine Protein (NEG-TRACE) MG/DL Urine Glucose (UA) (NEG) MG/DL Urine Ketones (NEG) MG/DL Urine Blood (NEG) Urine Nitrite (NEG) Ur Leukocyte Esterase (NEG) Urine RBC (0) /HPF Urine WBC (0-4) /HPF Ur Squamous Epith Cells /LPF Urine Bacteria /LPF COVID-19 (MICHELLE) Negative (Negative) COVID-19 Clin Com See Note 07/25/21 Range/Units 13:29 WBC (4.8-10.8) X10*3/uL RBC (4.60-5.80) X10*6/uL Hgb (14.0-18.0) g/dl Hct (42-52) % MCV (80-98) fL MCH (27.0-33.0) pg MCHC (31.0-36.0) g/dl RDW (11.0-16.0) % Plt Count (160-400) X10*3/uL MPV (9.4-12.4) fL Immature Gran % (Auto) (0.0-0.4) % Neut % (Auto) (45-73) % Lymph % (Auto) (20-40) % Bates % (Auto) (2-11) % Eos % (Auto) (0-4) % Baso % (Auto) (0-2) % Lymph # (Auto) (1.2-4.9) X10*3/uL Bates # (Auto) (0.1-1.2) X10*3/uL Eos # (Auto) (0.0-0.4) X10*3/uL Baso # (Auto) (0.0-0.2) X10*3/uL Abs Immat Gran (auto) (0.00-0.03) X10*3/uL Absolute Neuts (auto) (2.0-8.3) X10*3/uL Absolute Nucleated RBC (0.0-0.012) X10*3/uL Nucleated RBC % (auto) (0.0-0.2) /100WBC Sodium (135-145) mmol/L Potassium (3.3-5.1) mmol/L Chloride (96-108) mmol/L Carbon Dioxide (22-29) mmol/L Anion Gap (12-20) BUN (9-16) mg/dL Creatinine (0.5-1.4) mg/dL Estim Creat Clear Calc Estimated GFR POC Glucose (60-115) mg/dL Random Glucose (60-115) mg/dL Calcium (8.4-10.2) mg/dL Magnesium (1.6-2.6) mg/dL Total Bilirubin (0.0-1.0) mg/dL Direct Bilirubin (0.0-0.5) mg/dL AST (5-37) U/L ALT (0-40) U/L Alkaline Phosphatase (39-117) U/L Total Protein (6.5-8.0) g/dL Albumin (3.5-5.0) g/dL Urine Color YELLOW Urine Appearance CLEAR Urine pH 6.0 (5.0-8.0) Ur Specific [place] 1.010 (1.005-1.025) Urine Protein NEG (NEG-TRACE) MG/DL Urine Glucose (UA) >=1000 H (NEG) MG/DL Urine Ketones 15 (NEG) MG/DL Urine Blood NEG (NEG) Urine Nitrite NEG (NEG) Ur Leukocyte Esterase NEG (NEG) Urine RBC 0 (0) /HPF Urine WBC 5-9 H (0-4) /HPF Ur Squamous Epith Cells TRACE /LPF Urine Bacteria NONE /LPF COVID-19 (MICHELLE) (Negative) COVID-19 Clin Com Critical Care Time Critical Care Time Critical Care Time: Yes Total Critical Care Time: 36 Attestation: I have personally provided critical care time exclusive of time spent on separately billable procedures. Time includes review of lab data, radiology results, close monitoring of glucose with repeated interventions, and monitoring for potential decompensation. Intervention performed as documented. Discharge Plan Discharge Clinical Impression: Type 2 diabetes mellitus with hyperglycemia, without long-term current use of insulin, Pancytopenia Patient Disposition: Home, Self-Care Instructions: Diabetic Hyperglycemia (ED), Type 2 Diabetes Management for Adults (ED) Additional Instructions: Continue taking your metformin 500 mg 2 times a day. Follow-up with your primary care doctor for further management of your diabetes. This may need to be titrated up and you may need insulin in the future to improve sugar control. Avoid foods high in carbohydrates and sugar. If you develop new or worsening symptoms call 911 or come back to the ER for further evaluation. Prescriptions: No Action acetaminophen 325 mg tablet 650 mg PO Q8H PRN (Reason: fever or pain) 90 Days Qty: 90 RF: 0 aspirin [Adult Low Dose Aspirin] 81 mg tablet,delayed release (DR/EC) 81 mg PO DAILY 90 Days Qty: 90 RF: 3 gabapentin 300 mg capsule 300 mg PO BEDTIME Qty: 90 RF: 3 topiramate [Topamax] 50 mg tablet 50 mg PO BID 90 Days Qty: 180 RF: 2 divalproex [Depakote] 500 mg tablet,delayed release (DR/EC) 500 mg PO BID 90 Days Qty: 180 RF: 1 tamsulosin 0.4 mg capsule 0.8 mg PO DAILY 90 Days Qty: 180 RF: 2 atorvastatin 20 mg tablet 20 mg PO BEDTIME Qty: 90 RF: 3 (DME) lancing device [Prodigy Lancing Device] Misc See Rx Instructions .Route Qty: 1 RF: 0 (DME) lancets [Prodigy Lancets] 28 gauge misc See Rx Instructions .Route Qty: 100 RF: 3 metformin 500 mg tablet 500 mg PO BID Qty: 60 RF: 0 duloxetine 20 mg capsule,delayed release(DR/EC) 1 cap PO BEDTIME RF: 0 risperidone 1 mg tablet 1 mg PO BID RF: 0 carbidopa-levodopa 25-100 mg tablet 1.5 tab PO QID RF: 0 (DME) Briefs Medium Misc See Rx Instructions .ROUTE .MEDSUPPLY Qty: 96 RF: 8 melatonin 5 mg tablet 5 mg PO BEDTIME RF: 0 (DME) Prodigy No Coding Strip See Rx Instructions .Route Qty: 100 RF: 6 (DME) blood-glucose meter [[employer] Autocode Meter] Kit See Rx Instructions .Route Qty: 1 RF: 0 (DME) blood sugar diagnostic Strip See Rx Instructions .Route Qty: 70 RF: 0 (DME) lancets [Prodigy Lancets] 28 gauge misc See Rx Instructions .Route Qty: 100 RF: 0 mirtazapine 15 mg tablet 15 mg PO BID RF: 0 benztropine 0.5 mg tablet 0.5 mg PO BID RF: 0 Print Language: Surinamese
[2021-07-25 09:49] LABS: Basophils Percent Auto 0.4 % (0-2); Eosinophils Absolute Auto 0.1 X10*3/uL (0.0-0.4); Eosinophils Percent Auto 1.8 % (0-4); Hematocrit 37.2 % (42-52); Hemoglobin 12.4 g/dl (14.0-18.0); Imm Gran Abs Auto 0.01 X10*3/uL (0.00-0.03); Imm Gran Pct Auto 0.4 % (0.0-0.4); Lymphocytes Absolute Auto 0.9 X10*3/uL (1.2-4.9); Lymphocytes Percent Auto 33.1 % (20-40); Mean Corpuscular HGB Conc 33.3 g/dl (31.0-36.0); Mean Corpuscular Volume 95.9 fL (80-98); Mean Platelet Volume 8.3 fL (9.4-12.4); Monocytes Absolute Auto 0.5 X10*3/uL (0.1-1.2); Monocytes Percent Auto 18.7 % (2-11); Neutrophils Absolute Auto 1.3 X10*3/uL (2.0-8.3); Neutrophils Percent Auto 45.6 % (45-73); Platelet Count 157 X10*3/uL (160-400); Red Blood Count 3.88 X10*6/uL (4.60-5.80); Red Cell Distribution Width 14.6 % (11.0-16.0); White Blood Count 2.8 X10*3/uL (4.8-10.8)
[2021-07-25 10:02] LABS: COVID-19 Test Negative (Negative)
[2021-07-25 10:05] LABS: Alanine Aminotransferase < 6 U/L (0-40); Albumin Level 3.8 g/dL (3.5-5.0); Alkaline Phosphatase 83 U/L (39-117); Anion Gap 13 (12-20); Aspartate Amino Transferase 16 U/L (5-37); Bilirubin Direct 0.2 mg/dL (0.0-0.5); Bilirubin Total 0.6 mg/dL (0.0-1.0); Blood Urea Nitrogen 20 mg/dL (9-16); Calcium 8.9 mg/dL (8.4-10.2); Carbon Dioxide 27 mmol/L (22-29); Chloride 96 mmol/L (96-108); Estimated Glomerular Filt Rate 54; Glucose Random 450 mg/dL (60-115); Potassium 4.1 mmol/L (3.3-5.1); Sodium 132 mmol/L (135-145); Total Protein 6.1 g/dL (6.5-8.0)
[2021-07-25 10:13] VITALS: BP 159/83; PULSE 67; RESP 13; O2SAT 100
[2021-07-25 11:19] LABS: Glucose, Whole Blood 316 mg/dL (60-115)
[2021-07-25 12:46] VITALS: BP 120/72; PULSE 71; RESP 14; O2SAT 99
[2021-07-25 12:46] LABS: Glucose, Whole Blood 278 mg/dL (60-115)
[2021-07-25 13:35] LABS: Appearance Urine CLEAR; Color Urine YELLOW; Glucose Urine UA >=1000 MG/DL (NEG); Leukocyte Esterase Urine NEG (NEG); Nitrite Urine NEG (NEG); Urine Blood NEG (NEG); Urine Ketones 15 MG/DL (NEG); Urine Protein NEG (NEG-TRACE)
[2021-07-25 13:42] LABS: RBC Urine 0 /HPF (0); Squamous Epithelial Cell Urine TRACE /LPF
== END 2021-07-25 13:58 | disposition home or self-care (01) ==
PROVIDERS: Physician Assistant; Emergency Provider Emergency Medicine; PCP Internal Medicine
DX: E11.65 Type 2 diabetes mellitus with hyperglycemia (principal); D61.818 Other pancytopenia; L03.031 Cellulitis of right toe; I10 Essential (primary) hypertension; Z20.822 Contact with and (suspected) exposure to COVID-19
CPT/HCPCS: 36415; 80048; 80076; 81001; 82947; 83735; 85025; 87086; 87635; 96360; 96361; 99284

== ENCOUNTER 2021-07-31 21:38 | Emergency (ER) | payer MEDICARE, MEDICAID, SELFPAY ==
--- NOTE | ~2021-07-31 | XR_ITS ---
EXAMINATION: XR CHEST CLINICAL INFORMATION: Chest pain. COMPARISON: Most recent chest radiograph dated 07/23/2021. TECHNIQUE: Frontal view of the chest was obtained. FINDINGS: The lungs are clear. The cardiomediastinal silhouette is normal in size. There is no pleural effusion or pneumothorax. No acute osseous abnormality. XR/XR chest 1V IMPRESSION: No acute cardiopulmonary findings.
[2021-07-31 21:46] VITALS: BP 138/78; BP 188/101; PULSE 76; PULSE 80; RESP 18; TEMP 36.8; O2SAT 100; O2SAT 99; BMI 20.1
--- NOTE | 2021-07-31 21:50 | ECG_ITS ---
Test Reason : CHEST PAIN Blood Pressure : / mmHG Vent. Rate : 080 BPM Atrial Rate : 080 BPM P-R Int : 138 ms QRS Dur : 092 ms QT Int : 364 ms P-R-T Axes : 033 -15 016 degrees QTc Int : 419 ms Normal sinus rhythm Normal ECG No significant changes seen Referred By: Anne Corbett Electronically Signed By:JACOBO JACOB MD
[2021-07-31 21:52] LABS: Glucose, Whole Blood 433 mg/dL (60-115)
--- NOTE | 2021-07-31 21:52 | ED_ITS ---
HPI - General Adult General Chief complaint: General Medical Stated complaint: hyperglycemia/chest pain (from [facility]) Time Seen by Provider: 07/31/21 21:42 Source: EMS Mode of arrival: EMS Limitations: altered mental status History of Present Illness HPI narrative: Patient comes emergency room from a [facility]. Patient is poor historian, patient history of schizophrenia, developmental delay, hypertension, poorly-controlled diabetes, depression, history of COVID-19. According to the staff at the [facility]. Patient was complaining of chest pain, his glucose was checked and it was above 500. EMS was called. EMS gave patient 1 full dose of aspirin and sublingual nitroglycerin. On arrival to the emergency room, patient is a poor historian, keeps changing his story, sometimes states he has chest pain, sometimes states he does not. Occasionally he has neck pain/knee pain/abdominal pain/headache and then changes his story and denies everything. Related Data Home Medications Medication Instructions Recorded Confirmed benztropine 0.5 mg tablet 0.5 mg PO BID 06/27/20 07/30/21 mirtazapine 15 mg tablet 15 mg PO BID tab 06/27/20 07/30/21 risperidone 1 mg tablet 1 mg PO BID 08/15/20 07/30/21 carbidopa 25 mg-levodopa 100 mg 1.5 tab PO QID 11/23/20 07/30/21 tablet duloxetine 20 mg capsule,delayed 1 cap PO BEDTIME 07/10/21 07/30/21 release melatonin 5 mg tablet 5 mg PO BEDTIME 07/23/21 07/30/21 Previous Rx's Medication Instructions Recorded diaper,brief,adult,disposable #96 ea 11/23/20 (Briefs Medium) acetaminophen 325 mg tablet 650 mg PO Q8H PRN 90 Days #90 tab 05/14/21 aspirin 81 mg tablet,delayed 81 mg PO DAILY 90 Days #90 tab 05/14/21 release (Adult Low Dose Aspirin) gabapentin 300 mg capsule 300 mg PO BEDTIME #90 cap 05/14/21 topiramate 50 mg tablet (Topamax) 50 mg PO BID 90 Days #180 tab 06/19/21 divalproex 500 mg tablet,delayed 500 mg PO BID 90 Days #180 tab 06/27/21 release (Depakote) tamsulosin 0.4 mg capsule 0.8 mg PO DAILY 90 Days #180 cap 06/27/21 atorvastatin 20 mg tablet 20 mg PO BEDTIME #90 tab 07/16/21 lancets 28 gauge (Prodigy Lancets) #100 ea 07/20/21 lancing device (Prodigy Lancing #1 ea 07/20/21 Device) blood sugar diagnostic #70 ea 07/23/21 blood sugar diagnostic (Prodigy No #100 ea 07/23/21 Coding) blood-glucose meter (Prodigy #1 ea 07/23/21 Autocode Meter) lancets 28 gauge (Prodigy Lancets) #100 ea 07/23/21 metformin 1,000 mg tablet 1,000 mg PO BID #60 tab 07/30/21 Allergies Allergy/AdvReac Type Severity Reaction Status Date / Time perfume Allergy Intermediate ITCHING Verified 07/31/21 22:22 Review of Systems Review of Systems: Yes Other (Dementia, developmental delay, poor historian) [facility] Past Medical History Medical History Annual physical exam BPH with obstruction/lower urinary tract symptoms Depression Developmental delay, moderate Dysphagia Gastroesophageal reflux disease Hypercholesteremia Hypertension Metabolic encephalopathy Occipital infarction Parkinson's disease Schizophrenia Tubular adenoma of colon Type 2 diabetes mellitus with hyperglycemia Vitamin D deficiency Surgical History History of circumcision History of colonoscopy History of prostate surgery Family History Family History Father Type II diabetes mellitus Mother Type II diabetes mellitus Social History Social History Household Members: Other Housing: Other Housing Other:: INTERMEDIATE Alcohol intake: never Patient Tobacco Use Status: Never used Tobacco e-Cigarette/Vaping Use: Never Used Second Hand Smoke Exposure: No Use of substances other than those prescribed or required for medical reasons: No Advance Directives: Yes Advance Directives on File: Yes Advance Directives Date on File: 07/11/21 service: No Current occupational status: disabled Physical Exam Vital Signs: Vital Signs: Last Vital Signs Temp 98.2 F 07/31/21 22:05 Pulse 70 07/31/21 22:50 Resp 15 07/31/21 22:50 BP 130/69 07/31/21 22:50 Pulse Ox 100 07/31/21 22:50 Body Mass Index 20.1 Const: Other: Appearance: Alert. Not oriented at all, No acute distress. Slightly anxious Eyes: Pupils equal, round and reactive to light. ENT: Pharynx normal. Neck: Normal inspection. Neck supple. No lymph nodes noted. No crepitus CVS: Normal heart rate and rhythm. Pulses normal. Normal S1 and S2 Respiratory: No respiratory distress. Breath sounds normal. No Wheezing. No rales Abdomen: Soft and nontender. No rigidity. No distention Skin: Skin warm and dry. Normal skin color. Normal skin turgor. Extremities: No lower extremity edema. No lower extremity edema. No Lacerations. No Rash Neuro: Cranial nerves 2-12 grossly intact, No motor deficit. No sensory deficit. Moving all extermities. No slurred speech. Course Course Course Narrative: Blood glucose 516. Patient was given a home dose of insulin and normal saline Patient's [facility] director is at bedside now, states that when the patient wa s at the facility, patient never complained of chest pain, unclear per the history came from. At this time, patient is calm, cooperative, denies any symptoms. I discussed with the [facility] director the options of starting the patient on very low does glimepiride , discussed the risks versus benefits or starting the patient on insulin. At this time, it was decided that patient will go home with his normal dose of metformin, they will follow up with his primary care physician and they would prefer to start patient on insulin if the PCP agrees to do so, they will need diabetic training. Medical Decision Making Lab Data Result diagrams: 07/31/21 22:00 07/31/21 22:00 Labs: Lab Results 07/31/21 07/31/21 07/31/21 Range/Units 21:49 22:00 22:00 WBC 2.8 L (4.8-10.8) X10*3/uL RBC 3.66 L (4.60-5.80) X10*6/uL Hgb 11.7 L (14.0-18.0) g/dl Hct 35.2 L (42.0-52.0) % MCV 96.2 (80.0-98.0) fL MCH 32.0 (27.0-33.0) pg MCHC 33.2 (31.0-36.0) g/dl RDW 14.6 (11.0-16.0) % Plt Count 169 (160-400) X10*3/uL MPV 8.6 L (9.4-12.4) fL Immature Gran % (Auto) 0.4 (0.0-0.4) % Neut % (Auto) 51.1 (45-73) % Lymph % (Auto) 28.6 (20-40) % [place] % (Auto) 18.4 H (2-11) % Eos % (Auto) 1.1 (0-4) % Baso % (Auto) 0.4 (0-2) % Lymph # (Auto) 0.8 L (1.2-4.9) X10*3/uL [place] # (Auto) 0.5 (0.1-1.2) X10*3/uL Eos # (Auto) 0.0 (0.0-0.4) X10*3/uL Baso # (Auto) 0.0 (0.0-0.2) X10*3/uL Abs Immat Gran (auto) 0.01 (0.00-0.03) X10*3/uL Absolute Neuts (auto) 1.45 L (2.0-8.3) x10*3/uL Absolute Nucleated RBC 0.000 (0.0-0.012) X10*3/uL Nucleated RBC % (auto) 0.0 (0.0-0.2) /100WBC PT (9.9-13.0) SEC INR (0.9-1.1) Sodium 137 (135-145) mmol/L Potassium 4.2 (3.3-5.1) mmol/L Chloride 100 (96-108) mmol/L Carbon Dioxide 29 (22-29) mmol/L Anion Gap 12 (12-20) BUN 21 H (9-16) mg/dL Creatinine 1.20 (0.5-1.4) mg/dL Estim Creat Clear Calc 44.6 Estimated GFR 60 POC Glucose 433 H* (60-115) mg/dL Random Glucose 516 H* (60-115) mg/dL Calcium 9.1 (8.4-10.2) mg/dL Total Bilirubin 0.5 (0.0-1.0) mg/dL Direct Bilirubin 0.2 (0.0-0.5) mg/dL AST 13 (5-37) U/L ALT < 6 (0-40) U/L Alkaline Phosphatase 75 (39-117) U/L Troponin I High Sens (<3.5-35.0) ng/L B-Natriuretic Peptide (<100) pg/mL Total Protein 5.8 L (6.5-8.0) g/dL Albumin 3.7 (3.5-5.0) g/dL Lipase 17 (8-78) U/L Urine Color Urine Appearance Urine pH (5.0-8.0) Ur Specific [place] (1.005-1.025) Urine Protein (NEG-TRACE) MG/DL Urine Glucose (UA) (NEG) MG/DL Urine Ketones (NEG) MG/DL Urine Blood (NEG) Urine Nitrite (NEG) Ur Leukocyte Esterase (NEG) Urine RBC (0) /HPF Urine WBC (0-4) /HPF Ur Squamous Epith Cells /LPF Urine Bacteria /LPF Urine Mucus /LPF Acetone, Qual Negative (Negative) COVID-19 (MICHELLE) (Negative) COVID-19 Clin Com 07/31/21 07/31/21 07/31/21 Range/Units 22:00 22:00 22:00 WBC (4.8-10.8) X10*3/uL RBC (4.60-5.80) X10*6/uL Hgb (14.0-18.0) g/dl Hct (42.0-52.0) % MCV (80.0-98.0) fL MCH (27.0-33.0) pg MCHC (31.0-36.0) g/dl RDW (11.0-16.0) % Plt Count (160-400) X10*3/uL MPV (9.4-12.4) fL Immature Gran % (Auto) (0.0-0.4) % Neut % (Auto) (45-73) % Lymph % (Auto) (20-40) % [place] % (Auto) (2-11) % Eos % (Auto) (0-4) % Baso % (Auto) (0-2) % Lymph # (Auto) (1.2-4.9) X10*3/uL [place] # (Auto) (0.1-1.2) X10*3/uL Eos # (Auto) (0.0-0.4) X10*3/uL Baso # (Auto) (0.0-0.2) X10*3/uL Abs Immat Gran (auto) (0.00-0.03) X10*3/uL Absolute Neuts (auto) (2.0-8.3) x10*3/uL Absolute Nucleated RBC (0.0-0.012) X10*3/uL Nucleated RBC % (auto) (0.0-0.2) /100WBC PT 13.0 (9.9-13.0) SEC INR 1.1 (0.9-1.1) Sodium (135-145) mmol/L Potassium (3.3-5.1) mmol/L Chloride (96-108) mmol/L Carbon Dioxide (22-29) mmol/L Anion Gap (12-20) BUN (9-16) mg/dL Creatinine (0.5-1.4) mg/dL Estim Creat Clear Calc Estimated GFR POC Glucose (60-115) mg/dL Random Glucose (60-115) mg/dL Calcium (8.4-10.2) mg/dL Total Bilirubin (0.0-1.0) mg/dL Direct Bilirubin (0.0-0.5) mg/dL AST (5-37) U/L ALT (0-40) U/L Alkaline Phosphatase (39-117) U/L Troponin I High Sens 7.0 (<3.5-35.0) ng/L B-Natriuretic Peptide 25 (<100) pg/mL Total Protein (6.5-8.0) g/dL Albumin (3.5-5.0) g/dL Lipase (8-78) U/L Urine Color Urine Appearance Urine pH (5.0-8.0) Ur Specific [place] (1.005-1.025) Urine Protein (NEG-TRACE) MG/DL Urine Glucose (UA) (NEG) MG/DL Urine Ketones (NEG) MG/DL Urine Blood (NEG) Urine Nitrite (NEG) Ur Leukocyte Esterase (NEG) Urine RBC (0) /HPF Urine WBC (0-4) /HPF Ur Squamous Epith Cells /LPF Urine Bacteria /LPF Urine Mucus /LPF Acetone, Qual (Negative) COVID-19 (MICHELLE) Negative (Negative) COVID-19 Clin Com See Note 07/31/21 07/31/21 07/31/21 Range/Units 22:17 23:14 23:43 WBC (4.8-10.8) X10*3/uL RBC (4.60-5.80) X10*6/uL Hgb (14.0-18.0) g/dl Hct (42.0-52.0) % MCV (80.0-98.0) fL MCH (27.0-33.0) pg MCHC (31.0-36.0) g/dl RDW (11.0-16.0) % Plt Count (160-400) X10*3/uL MPV (9.4-12.4) fL Immature Gran % (Auto) (0.0-0.4) % Neut % (Auto) (45-73) % Lymph % (Auto) (20-40) % [place] % (Auto) (2-11) % Eos % (Auto) (0-4) % Baso % (Auto) (0-2) % Lymph # (Auto) (1.2-4.9) X10*3/uL [place] # (Auto) (0.1-1.2) X10*3/uL Eos # (Auto) (0.0-0.4) X10*3/uL Baso # (Auto) (0.0-0.2) X10*3/uL Abs Immat Gran (auto) (0.00-0.03) X10*3/uL Absolute Neuts (auto) (2.0-8.3) x10*3/uL Absolute Nucleated RBC (0.0-0.012) X10*3/uL Nucleated RBC % (auto) (0.0-0.2) /100WBC PT (9.9-13.0) SEC INR (0.9-1.1) Sodium (135-145) mmol/L Potassium (3.3-5.1) mmol/L Chloride (96-108) mmol/L Carbon Dioxide (22-29) mmol/L Anion Gap (12-20) BUN (9-16) mg/dL Creatinine (0.5-1.4) mg/dL Estim Creat Clear Calc Estimated GFR POC Glucose 428 H* 288 H (60-115) mg/dL Random Glucose (60-115) mg/dL Calcium (8.4-10.2) mg/dL Total Bilirubin (0.0-1.0) mg/dL Direct Bilirubin (0.0-0.5) mg/dL AST (5-37) U/L ALT (0-40) U/L Alkaline Phosphatase (39-117) U/L Troponin I High Sens (<3.5-35.0) ng/L B-Natriuretic Peptide (<100) pg/mL Total Protein (6.5-8.0) g/dL Albumin (3.5-5.0) g/dL Lipase (8-78) U/L Urine Color YELLOW Urine Appearance CLEAR Urine pH 7.5 (5.0-8.0) Ur Specific [place] 1.010 (1.005-1.025) Urine Protein NEG (NEG-TRACE) MG/DL Urine Glucose (UA) >=1000 H (NEG) MG/DL Urine Ketones 15 (NEG) MG/DL Urine Blood NEG (NEG) Urine Nitrite NEG (NEG) Ur Leukocyte Esterase NEG (NEG) Urine RBC 0 (0) /HPF Urine WBC 0 (0-4) /HPF Ur Squamous Epith Cells TRACE /LPF Urine Bacteria NONE /LPF Urine Mucus TRACE /LPF Acetone, Qual (Negative) COVID-19 (MICHELLE) (Negative) COVID-19 Clin Com ECG Data Attestation: I personally reviewed and interpreted this ECG as follows: (Sinus rhythm, heart rate 80, no ST segment depression or elevation, no T-wave inversion, QTC 419) Discharge Plan Discharge Clinical Impression: Acute hyperglycemia Patient Disposition: Home, Self-Care Instructions: Diabetic Hyperglycemia (ED) Additional Instructions: Please follow-up with your primary care physician tomorrow. If you have any worsening or new symptoms, please return to the emergency room or call 911 Prescriptions: No Action acetaminophen 325 mg tablet 650 mg PO Q8H PRN (Reason: fever or pain) 90 Days Qty: 90 RF: 0 aspirin [Adult Low Dose Aspirin] 81 mg tablet,delayed release (DR/EC) 81 mg PO DAILY 90 Days Qty: 90 RF: 3 gabapentin 300 mg capsule 300 mg PO BEDTIME Qty: 90 RF: 3 topiramate [Topamax] 50 mg tablet 50 mg PO BID 90 Days Qty: 180 RF: 2 divalproex [Depakote] 500 mg tablet,delayed release (DR/EC) 500 mg PO BID 90 Days Qty: 180 RF: 1 tamsulosin 0.4 mg capsule 0.8 mg PO DAILY 90 Days Qty: 180 RF: 2 atorvastatin 20 mg tablet 20 mg PO BEDTIME Qty: 90 RF: 3 (DME) lancing device [Prodigy Lancing Device] Misc See Rx Instructions .Route Qty: 1 RF: 0 (DME) lancets [Prodigy Lancets] 28 gauge misc See Rx Instructions .Route Qty: 100 RF: 3 duloxetine 20 mg capsule,delayed release(DR/EC) 1 cap PO BEDTIME RF: 0 risperidone 1 mg tablet 1 mg PO BID RF: 0 carbidopa-levodopa 25-100 mg tablet 1.5 tab PO QID RF: 0 (DME) Briefs Medium Misc See Rx Instructions .ROUTE .MEDSUPPLY Qty: 96 RF: 8 metformin 1,000 mg tablet 1,000 mg PO BID Qty: 60 RF: 0 melatonin 5 mg tablet 5 mg PO BEDTIME RF: 0 (DME) Prodigy No Coding Strip See Rx Instructions .Route Qty: 100 RF: 6 (DME) blood-glucose meter [ProdPreciouStatusy Autocode Meter] Kit See Rx Instructions .Route Qty: 1 RF: 0 (DME) blood sugar diagnostic Strip See Rx Instructions .Route Qty: 70 RF: 0 (DME) lancets [Prodigy Lancets] 28 gauge misc See Rx Instructions .Route Qty: 100 RF: 0 mirtazapine 15 mg tablet 15 mg PO BID RF: 0 benztropine 0.5 mg tablet 0.5 mg PO BID RF: 0
[2021-07-31 22:05] VITALS: BP 138/78; PULSE 80; RESP 25; TEMP 36.8; O2SAT 100
[2021-07-31 22:09] LABS: MANUAL DIFF FLAG NO
[2021-07-31 22:12] LABS: Basophils Percent Auto 0.4 % (0-2); Eosinophils Percent Auto 1.1 % (0-4); Hematocrit 35.2 % (42.0-52.0); Hemoglobin 11.7 g/dl (14.0-18.0); Imm Gran Abs Auto 0.01 X10*3/uL (0.00-0.03); Imm Gran Pct Auto 0.4 % (0.0-0.4); Lymphocytes Absolute Auto 0.8 X10*3/uL (1.2-4.9); Lymphocytes Percent Auto 28.6 % (20-40); Mean Corpuscular HGB Conc 33.2 g/dl (31.0-36.0); Mean Corpuscular Volume 96.2 fL (80.0-98.0); Mean Platelet Volume 8.6 fL (9.4-12.4); Monocytes Absolute Auto 0.5 X10*3/uL (0.1-1.2); Monocytes Percent Auto 18.4 % (2-11); Neutrophils Absolute Auto 1.45 x10*3/uL (2.0-8.3); Neutrophils Percent Auto 51.1 % (45-73); Platelet Count 169 X10*3/uL (160-400); Red Blood Count 3.66 X10*6/uL (4.60-5.80); Red Cell Distribution Width 14.6 % (11.0-16.0); White Blood Count 2.8 X10*3/uL (4.8-10.8)
[2021-07-31 22:18] LABS: INTERNATIONAL NORM RATIO 1.1 (0.9-1.1)
[2021-07-31 22:30] LABS: Appearance Urine CLEAR; Color Urine YELLOW; Glucose Urine UA >=1000 MG/DL (NEG); Leukocyte Esterase Urine NEG (NEG); Nitrite Urine NEG (NEG); PH 7.5 (5.0-8.0); Urine Blood NEG (NEG); Urine Ketones 15 MG/DL (NEG); Urine Protein NEG (NEG-TRACE)
[2021-07-31 22:31] LABS: B Type Natriuretic Peptide 25 pg/mL (<100)
[2021-07-31 22:40] LABS: Mucus Urine TRACE /LPF; RBC Urine 0 /HPF (0); Squamous Epithelial Cell Urine TRACE /LPF; WBC Urine 0 /HPF (0-4)
[2021-07-31 22:45] LABS: Alanine Aminotransferase < 6 U/L (0-40); Albumin Level 3.7 g/dL (3.5-5.0); Alkaline Phosphatase 75 U/L (39-117); Anion Gap 12 (12-20); Aspartate Amino Transferase 13 U/L (5-37); Bilirubin Direct 0.2 mg/dL (0.0-0.5); Bilirubin Total 0.5 mg/dL (0.0-1.0); Blood Urea Nitrogen 21 mg/dL (9-16); Calcium 9.1 mg/dL (8.4-10.2); Carbon Dioxide 29 mmol/L (22-29); Chloride 100 mmol/L (96-108); Creatinine Clr Calc Pharmacy 44.6; Estimated Glomerular Filt Rate 60; Glucose Random 516 mg/dL (60-115); Lipase 17 U/L (8-78); Potassium 4.2 mmol/L (3.3-5.1); Sodium 137 mmol/L (135-145); Total Protein 5.8 g/dL (6.5-8.0)
[2021-07-31] MEDS: 0.9 % Sodium Chloride 1,000 ML 999 ML IVCONT (22:48)
[2021-07-31 22:49] LABS: COVID-19 Test Negative (Negative)
[2021-07-31 22:50] VITALS: BP 130/69; PULSE 70; RESP 15; O2SAT 100
[2021-07-31] MEDS: Insulin Regular, Human 100 UNIT/ML 3 ML VIAL 10 UNIT IVPUSH (22:53)
[2021-07-31 23:07] LABS: Acetone, serum QL Negative (Negative)
[2021-07-31 23:19] LABS: Glucose, Whole Blood 428 mg/dL (60-115)
[2021-07-31 23:46] LABS: Glucose, Whole Blood 288 mg/dL (60-115)
[2021-08-01 00:18] VITALS: BP 96/56; PULSE 74; RESP 15; O2SAT 98
[2021-08-01 00:31] VITALS: TEMP 36.3
--- NOTE | 2021-08-01 00:31 | PC.NURSE ---
Pt remains alert an confused, only oriented to self at this time at baseline mental status per [facility] staff who remains with patient at bedside. Pt denies pain. Vitals stable, last POC 288. MD Corbett aware of patients blood pressures and POC. IV removed. Pt OOB to wheelchair with 1 assist and tolerated well. Pt aid given dc instructions.
== END 2021-08-01 00:33 | disposition home or self-care (01) ==
PROVIDERS: Emergency Provider Emergency Medicine
DX: R07.9 Chest pain, unspecified (principal); E11.65 Type 2 diabetes mellitus with hyperglycemia; Z20.822 Contact with and (suspected) exposure to COVID-19; Z79.899 Other long term (current) drug therapy; Z79.4 Long term (current) use of insulin
CPT/HCPCS: 36415; 71045; 80048; 80076; 81001; 82009; 82947; 83690; 83880; 84484; 85025; 85610; 87635; 93005; 96361; 96374; 99284; 99285

== ENCOUNTER 2021-08-09 09:05 | Emergency (ER) | payer MEDICARE, MEDICAID, SELFPAY ==
--- NOTE | ~2021-08-09 | XR_ITS ---
EXAMINATION: XR CHEST CLINICAL INFORMATION: Chest pain COMPARISON: Chest radiographs 07/31/2021, 07/23/2021 TECHNIQUE: Portable upright AP view of the chest was obtained. FINDINGS: Patient slightly rotated to left. The lungs are clear. There is no pneumothorax, pleural reaction, airspace consolidation, or effusion. The heart is normal in size. The costophrenic sulci are clear. The hilar and mediastinal contours and visualized bony structures are unremarkable. XR/XR chest 1V IMPRESSION: Unremarkable examination.
--- NOTE | ~2021-08-09 | CT_ITS ---
EXAMINATION: CT angio head neck stroke CLINICAL INFORMATION: Stroke protocol. Altered mental status. Question large vessel occlusion. COMPARISON: CT scan of the head 08/09/2021. TECHNIQUE: Complex Case Manager images were obtained. A CT angiogram of the head and neck was performed in the arterial phase after the intravenous administration of 70 mL Omnipaque 350. Delayed postcontrast images of the head were also obtained. MIP reconstructions were generated in multiple orientations at the acquisition workstation. Multiple three-dimensional surface rendered images and maximum intensity projection images were generated on a dedicated 3-D lab workstation. Arterial stenoses are measured in accordance with NASCET criteria or similar method if applicable. This CT examination was performed using dose optimization techniques as appropriate, including one or more of the following: Automated exposure control, iterative reconstruction, and adjustment of technique factors (mA and/or kVp) according to patient size (this includes techniques or standardized protocols for targeted exams where dose is matched to indication/reason for exam). Total exam dose-length product 1512 mGy-cm FINDINGS: Head: Delayed postcontrast images reveal no abnormal mass or enhancement within the intracranial compartment. No intracranial mass effect or midline shift. Lateral and third ventricles are normal. No hydrocephalus. Bazan-white matter differentiation is preserved and there is no evidence of acute territorial infarct. The calvarium and skull base are intact. Mastoid air cells and middle ear cavities are well aerated. There is mild to moderate left maxillary sinus disease. The nasal septum deviates to the left and there is a large leftward projecting nasal septal spur. Globes and orbits are unremarkable. CT angiogram neck: The aortic arch apex is normal. Origins of the major aortic branches are widely patent. Common carotid arteries are patent. Partially calcified atheromatous plaque involves both carotid bifurcations. No stenosis of the extracranial internal carotid arteries. The cervical segments of the vertebral arteries as well as their origins are patent. CT angiogram head: Intracranial internal carotid arteries are patent. Intradural vertebral artery segments and basilar artery are patent. Anterior, middle, and posterior cerebral complexes are normal. No intracranial or vessel occlusion. The timing of the contrast injection provides adequate opacification of the dural venous sinuses which are patent. Other: Visualized soft tissues of the neck including the thyroid gland are normal. Grossly no pathologically enlarged cervical lymph nodes. Visualized lung apices are clear. There is multilevel degenerative spondylosis of the cervical spine and there is at least moderate canal stenosis at multiple levels. CT/CT angio head neck stroke IMPRESSION: There is advanced multilevel degenerative spondylosis of the cervical spine with at least moderate canal stenosis at multiple levels. If there are clinical symptoms of compressive myelopathy then a dedicated cervical spinal MRI can be obtained for better anatomic characterization of the cord and canal. Otherwise unremarkable examination in that there is no abnormal intracranial mass or enhancement. Grossly no evidence of acute territorial infarct. There is no stenosis of the cervical carotid or vertebral arteries. No intracranial large vessel occlusion.
--- NOTE | ~2021-08-09 | CT_ITS ---
EXAMINATION: CT HEAD WITHOUT CONTRAST (STROKE PROTOCOL) CLINICAL INFORMATION: Stroke protocol. Altered mental status. Chest pain. COMPARISON: CT of the head done on 07/06/2020. TECHNIQUE: Contiguous axial imaging was performed from the skull base to vertex without intravenous administration of contrast. This CT examination was performed using dose optimization techniques as appropriate, variously including the following: *Automated exposure control *Adjustment of mA and/or kV according to patient size (this includes techniques or standardized protocols for targeted exams where dose is matched to indication/reason for exam; i.e. extremities or head) *Use of iterative reconstruction technique DLP: 684.1 mGy-cm FINDINGS: There is no intracranial hemorrhage, hematoma, or extra-axial fluid collection. The ventricles are normal in size. There is no hydrocephalus, edema, or mass effect. The templeton-white matter differentiation appears symmetric. There is no acute infarct or mass lesion. Previously documented periventricular white matter hypodensity, most pronounced around the left occipital lobe appear unchanged. The calvarium appears intact. There is no pneumocephalus or orbital emphysema. The visualized sinuses and middle ears and mastoid air cells appear unremarkable except for mild mucoperiosteal thickening of the left maxillary sinus. There are no air-fluid levels. CT/CT head for stroke IMPRESSION: No acute intracranial pathology. No significant change since 07/06/2020. This critical result was discussed with Dr. Ceja at 9:26 AM on 08/09/2021. It was ascertained that the content and urgency of the report was understood at the time of direct communication.
[2021-08-09 09:11] LABS: Prothrombin Time Whole Bld POC 12.8 sec (11.1-13.5); ~PT, ~INR - Anti Coag Clinic 1.1 (0.9-1.1)
--- NOTE | 2021-08-09 09:11 | ECG_ITS ---
Test Reason : stroke Blood Pressure : / mmHG Vent. Rate : 082 BPM Atrial Rate : 082 BPM P-R Int : 132 ms QRS Dur : 094 ms QT Int : 368 ms P-R-T Axes : 044 -15 018 degrees QTc Int : 429 ms Normal sinus rhythm Normal ECG When compared with ECG of 31-JUL-2021 21:57, No significant change was found Referred By: Derrell Ceja Electronically Signed By:JACOBO JACOB MD
[2021-08-09 09:13] LABS: Glucose, Whole Blood 327 mg/dL (60-115)
--- NOTE | 2021-08-09 09:14 | ED_ITS ---
HPI - Altered Mental Status General Chief Complaint: Stroke Stated Complaint: STROKE ALERT Time Seen by Provider: 08/09/21 09:11 Source: EMS Mode of arrival: EMS Limitations: language barrier and other History of Present Illness HPI narrative: EMS went to see patient for chest pain during the visit the patient had a moment of left sided gaze and then went unresponsive for a moment. MD complaint: altered mental status Onset (ago): minute(s) Severity: moderate Related Data Home Medications Medication Instructions Recorded Confirmed benztropine 0.5 mg tablet 0.5 mg PO BID 06/27/20 08/09/21 mirtazapine 15 mg tablet 15 mg PO BID tab 06/27/20 08/09/21 risperidone 1 mg tablet 1 mg PO BID 08/15/20 08/09/21 carbidopa 25 mg-levodopa 100 mg 1.5 tab PO QID 11/23/20 08/09/21 tablet duloxetine 20 mg capsule,delayed 1 cap PO BEDTIME 07/10/21 08/09/21 release acetaminophen 500 mg tablet 500 mg PO Q6H PRN 08/09/21 08/09/21 melatonin 3 mg tablet 3 mg PO BEDTIME 08/09/21 08/09/21 Previous Rx's Medication Instructions Recorded diaper,brief,adult,disposable #96 ea 11/23/20 (Briefs Medium) aspirin 81 mg tablet,delayed 81 mg PO DAILY 90 Days #90 tab 05/14/21 release (Adult Low Dose Aspirin) gabapentin 300 mg capsule 300 mg PO BEDTIME #90 cap 05/14/21 topiramate 50 mg tablet (Topamax) 50 mg PO BID 90 Days #180 tab 06/19/21 divalproex 500 mg tablet,delayed 500 mg PO BID 90 Days #180 tab 06/27/21 release (Depakote) tamsulosin 0.4 mg capsule 0.8 mg PO DAILY 90 Days #180 cap 06/27/21 atorvastatin 20 mg tablet 20 mg PO BEDTIME #90 tab 07/16/21 lancing device (Prodigy Lancing #1 ea 07/20/21 Device) blood sugar diagnostic #70 ea 07/23/21 metformin 1,000 mg tablet 1,000 mg PO BID #60 tab 07/30/21 blood sugar diagnostic (Prodigy No #100 ea 08/08/21 Coding) blood-glucose meter (Prodigy #1 ea 08/08/21 Autocode Meter) lancets 28 gauge (Prodigy Lancets) #100 ea 08/08/21 Allergies Allergy/AdvReac Type Severity Reaction Status Date / Time perfume Allergy Intermediate ITCHING Verified 08/08/21 10:22 Review of Systems Review of Systems: Yes Unobtainable due to mental status Neurologic: Denies Sensory deficit (Neuro) [facility] Past Medical History Medical History Annual physical exam BPH with obstruction/lower urinary tract symptoms Depression Developmental delay, moderate Dysphagia Gastroesophageal reflux disease Hypercholesteremia Hypertension Metabolic encephalopathy Occipital infarction Parkinson's disease Schizophrenia Tubular adenoma of colon Type 2 diabetes mellitus with hyperglycemia Vitamin D deficiency Surgical History History of circumcision History of colonoscopy History of prostate surgery Family History Family History Father Type II diabetes mellitus Mother Type II diabetes mellitus Social History Social History Household Members: Other Housing: Other Housing Other:: [facility] Alcohol intake: never Patient Tobacco Use Status: Never used Tobacco e-Cigarette/Vaping Use: Never Used Second Hand Smoke Exposure: No Use of substances other than those prescribed or required for medical reasons: No Advance Directives: Yes Advance Directives on File: Yes Advance Directives Date on File: 07/11/21 service: No Current occupational status: disabled Physical Exam Vital Signs: Vital Signs: Last Vital Signs Temp 97.9 F 08/09/21 09:45 Pulse 78 08/09/21 09:45 Resp 12 08/09/21 09:45 BP 135/81 08/09/21 09:45 Pulse Ox 98 08/09/21 09:45 Body Mass Index 25.0 Const: Other: patient with chronic schizophrenia, pressure speech difficulty communicating Nutritional Appearance: thin Orientation/consciousness: oriented to person Limitations: no limitations HENMT: Head: Yes normal to inspection Ears: external ears normal General nose exam: Normal external nose present Mouth: Normal oral and palatal mucosa present and oropharynx normal Throat: Yes posterior oropharynx normal Eyes: General: appearance normal, both eyes and all related structures Neck: Other: supple Neck: Yes normal visual inspection Chest: Chest palpation & inspection: normal inspection of the chest Resp: Auscultation: clear to auscultation bilaterally Cardio: Jugular venous distension: no JVD Rate: regular rate Rhythm: regular rhythm Heart sounds: S1 normal heart sound present and S2 normal heart sound present GI: Inspection: Yes normal to inspection Palpation (GI): Soft to palpation, nontender and No hepatosplenomegaly present Auscultation: normal bowel sounds : General: Yes no CVA tenderness Back/Spine/Pelvis: Back: no CVA tenderness Skin: General skin exam: no rashes or lesions noted Neuro: General: oriented to person Cranial nerves: Yes CN's II-XII intact bilaterally Motor exam (neuro): 5/5 motor strength present throughout Sensory Exam: No Sensory deficit (Neuro) Extrem: General: Yes normal to inspection Psych: Other: pressured speech with slurred speech which is his baseline Course Reevaluation(s) Reevaluation #1: with a manager medical and patients staff from his program, patient is at baseline. No evidence of stroke or HI will dc home Time: 11:36 MDM - Altered Mental Status Lab Data Result diagrams: 08/09/21 10:01 08/09/21 10:01 Labs: Lab Results 08/09/21 08/09/21 08/09/21 Range/Units 09:07 09:08 09:39 WBC (4.8-10.8) X10*3/uL RBC (4.60-5.80) X10*6/uL Hgb (14.0-18.0) g/dl Hct (42.0-52.0) % MCV (80.0-98.0) fL MCH (27.0-33.0) pg MCHC (31.0-36.0) g/dl RDW (11.0-16.0) % Plt Count (160-400) X10*3/uL MPV (9.4-12.4) fL Immature Gran % (Auto) (0.0-0.4) % Neut % (Auto) (45-73) % Lymph % (Auto) (20-40) % Ector % (Auto) (2-11) % Eos % (Auto) (0-4) % Baso % (Auto) (0-2) % Lymph # (Auto) (1.2-4.9) X10*3/uL Ector # (Auto) (0.1-1.2) X10*3/uL Eos # (Auto) (0.0-0.4) X10*3/uL Baso # (Auto) (0.0-0.2) X10*3/uL Abs Immat Gran (auto) (0.00-0.03) X10*3/uL Absolute Neuts (auto) (2.0-8.3) x10*3/uL Absolute Nucleated RBC (0.0-0.012) X10*3/uL Nucleated RBC % (auto) (0.0-0.2) /100WBC PT (9.9-13.0) SEC Whole Blood PT 12.8 (11.1-13.5) sec INR (0.9-1.1) Whole Blood INR 1.1 (0.9-1.1) APTT (24.1-38.0) SEC Sodium (135-145) mmol/L Potassium (3.3-5.1) mmol/L Chloride (96-108) mmol/L Carbon Dioxide (22-29) mmol/L Anion Gap (12-20) BUN (9-16) mg/dL Creatinine (0.5-1.4) mg/dL Estim Creat Clear Calc Estimated GFR POC Glucose 327 H 287 H (60-115) mg/dL Random Glucose (60-115) mg/dL Calcium (8.4-10.2) mg/dL Total Creatine Kinase (38-174) U/L Troponin I High Sens (<3.5-35.0) ng/L 08/09/21 08/09/21 08/09/21 Range/Units 10:01 10:01 10:01 WBC 3.8 L (4.8-10.8) X10*3/uL RBC 3.93 L (4.60-5.80) X10*6/uL Hgb 12.7 L (14.0-18.0) g/dl Hct 38.7 L (42.0-52.0) % MCV 98.5 H (80.0-98.0) fL MCH 32.3 (27.0-33.0) pg MCHC 32.8 (31.0-36.0) g/dl RDW 14.8 (11.0-16.0) % Plt Count 159 L (160-400) X10*3/uL MPV 8.5 L (9.4-12.4) fL Immature Gran % (Auto) 0.3 (0.0-0.4) % Neut % (Auto) 56.3 (45-73) % Lymph % (Auto) 25.3 (20-40) % Ector % (Auto) 16.2 H (2-11) % Eos % (Auto) 1.6 (0-4) % Baso % (Auto) 0.3 (0-2) % Lymph # (Auto) 1.0 L (1.2-4.9) X10*3/uL Ector # (Auto) 0.6 (0.1-1.2) X10*3/uL Eos # (Auto) 0.1 (0.0-0.4) X10*3/uL Baso # (Auto) 0.0 (0.0-0.2) X10*3/uL Abs Immat Gran (auto) 0.01 (0.00-0.03) X10*3/uL Absolute Neuts (auto) 2.1 (2.0-8.3) x10*3/uL Absolute Nucleated RBC 0.000 (0.0-0.012) X10*3/uL Nucleated RBC % (auto) 0.0 (0.0-0.2) /100WBC PT 12.7 (9.9-13.0) SEC Whole Blood PT (11.1-13.5) sec INR 1.1 (0.9-1.1) Whole Blood INR (0.9-1.1) APTT 32.7 (24.1-38.0) SEC Sodium 133 L (135-145) mmol/L Potassium 4.1 (3.3-5.1) mmol/L Chloride 97 (96-108) mmol/L Carbon Dioxide 28 (22-29) mmol/L Anion Gap 12 (12-20) BUN 21 H (9-16) mg/dL Creatinine 0.96 (0.5-1.4) mg/dL Estim Creat Clear Calc 60.5 Estimated GFR > 60 POC Glucose (60-115) mg/dL Random Glucose 338 H (60-115) mg/dL Calcium 9.1 (8.4-10.2) mg/dL Total Creatine Kinase 71 (38-174) U/L Troponin I High Sens (<3.5-35.0) ng/L 08/09/21 Range/Units 10:01 WBC (4.8-10.8) X10*3/uL RBC (4.60-5.80) X10*6/uL Hgb (14.0-18.0) g/dl Hct (42.0-52.0) % MCV (80.0-98.0) fL MCH (27.0-33.0) pg MCHC (31.0-36.0) g/dl RDW (11.0-16.0) % Plt Count (160-400) X10*3/uL MPV (9.4-12.4) fL Immature Gran % (Auto) (0.0-0.4) % Neut % (Auto) (45-73) % Lymph % (Auto) (20-40) % Ector % (Auto) (2-11) % Eos % (Auto) (0-4) % Baso % (Auto) (0-2) % Lymph # (Auto) (1.2-4.9) X10*3/uL Ector # (Auto) (0.1-1.2) X10*3/uL Eos # (Auto) (0.0-0.4) X10*3/uL Baso # (Auto) (0.0-0.2) X10*3/uL Abs Immat Gran (auto) (0.00-0.03) X10*3/uL Absolute Neuts (auto) (2.0-8.3) x10*3/uL Absolute Nucleated RBC (0.0-0.012) X10*3/uL Nucleated RBC % (auto) (0.0-0.2) /100WBC PT (9.9-13.0) SEC Whole Blood PT (11.1-13.5) sec INR (0.9-1.1) Whole Blood INR (0.9-1.1) APTT (24.1-38.0) SEC Sodium (135-145) mmol/L Potassium (3.3-5.1) mmol/L Chloride (96-108) mmol/L Carbon Dioxide (22-29) mmol/L Anion Gap (12-20) BUN (9-16) mg/dL Creatinine (0.5-1.4) mg/dL Estim Creat Clear Calc Estimated GFR POC Glucose (60-115) mg/dL Random Glucose (60-115) mg/dL Calcium (8.4-10.2) mg/dL Total Creatine Kinase (38-174) U/L Troponin I High Sens 3.8 (<3.5-35.0) ng/L Imaging Data CT scan - head: Radiologist's impression: IMPRESSION: There is advanced multilevel degenerative spondylosis of the cervical spine with at least moderate canal stenosis at multiple levels. If there are clinical symptoms of compressive myelopathy then a dedicated cervical spinal MRI can be obtained for better anatomic characterization of the cord and canal. Otherwise unremarkable examination in that there is no abnormal intracranial mass or enhancement. Grossly no evidence of acute territorial infarct. There is no stenosis of the cervical carotid or vertebral arteries. No intracranial large vessel occlusion.? ECG Data ECG #1: Attestation: I personally reviewed and interpreted this ECG as follows: Interpretation: normal sinus rate of 80, no st or twave changes Discharge Plan Discharge Clinical Impression: Schizophrenia Qualifiers: Schizophrenia type: undifferentiated schizophrenia Qualified Code(s): F20.3 - Undifferentiated schizophrenia Dementia Qualifiers: Dementia type: unspecified type Dementia behavioral disturbance: with behavioral disturbance Qualified Code(s): F03.91 - Unspecified dementia with behavioral disturbance Chest pain Qualifiers: Chest pain type: unspecified Qualified Code(s): R07.9 - Chest pain, unspecified Patient Disposition: Home, Self-Care Instructions: Chest Pain (ED), Dementia (ED), Schizophrenia (ED) Prescriptions: No Action aspirin [Adult Low Dose Aspirin] 81 mg tablet,delayed release (DR/EC) 81 mg PO DAILY 90 Days Qty: 90 RF: 3 gabapentin 300 mg capsule 300 mg PO BEDTIME Qty: 90 RF: 3 topiramate [Topamax] 50 mg tablet 50 mg PO BID 90 Days Qty: 180 RF: 2 divalproex [Depakote] 500 mg tablet,delayed release (DR/EC) 500 mg PO BID 90 Days Qty: 180 RF: 1 tamsulosin 0.4 mg capsule 0.8 mg PO DAILY 90 Days Qty: 180 RF: 2 atorvastatin 20 mg tablet 20 mg PO BEDTIME Qty: 90 RF: 3 (DME) lancing device [[employer] Lancing Device] Misc See Rx Instructions .Route Qty: 1 RF: 0 (DME) blood-glucose meter [[employer] Autocode Meter] Kit See Rx Instructions .Route Qty: 1 RF: 0 (DME) Prodigy No Coding Strip See Rx Instructions .Route Qty: 100 RF: 6 (DME) lancets [[employer] Lancets] 28 gauge misc See Rx Instructions .Route Qty: 100 RF: 0 melatonin 3 mg Tablet 3 mg PO BEDTIME RF: 0 acetaminophen 500 mg Tablet 500 mg PO Q6H PRN (Reason: Pain) RF: 0 duloxetine 20 mg capsule,delayed release(DR/EC) 1 cap PO BEDTIME RF: 0 risperidone 1 mg tablet 1 mg PO BID RF: 0 carbidopa-levodopa 25-100 mg tablet 1.5 tab PO QID RF: 0 (DME) Briefs Medium Misc See Rx Instructions .ROUTE .MEDSUPPLY Qty: 96 RF: 8 metformin 1,000 mg tablet 1,000 mg PO BID Qty: 60 RF: 0 (DME) blood sugar diagnostic Strip See Rx Instructions .Route Qty: 70 RF: 0 mirtazapine 15 mg tablet 15 mg PO BID RF: 0 benztropine 0.5 mg tablet 0.5 mg PO BID RF: 0 Referrals: Po,Claire Christianson MD [Primary Care Provider] - 5 days
[2021-08-09] MEDS: iohexoL 350 MG/ML 100 ML INFUS..BTL IV (09:19)
[2021-08-09 09:21] VITALS: BP 131/70; PULSE 82; RESP 16; TEMP 36.7; O2SAT 95; BMI 25.0
[2021-08-09 09:43] LABS: Glucose, Whole Blood 287 mg/dL (60-115)
[2021-08-09 09:45] VITALS: BP 135/81; PULSE 78; RESP 12; TEMP 36.6; O2SAT 98
[2021-08-09 10:05] LABS: MANUAL DIFF FLAG NO
[2021-08-09 10:08] LABS: Basophils Percent Auto 0.3 % (0-2); Eosinophils Absolute Auto 0.1 X10*3/uL (0.0-0.4); Eosinophils Percent Auto 1.6 % (0-4); Hematocrit 38.7 % (42.0-52.0); Hemoglobin 12.7 g/dl (14.0-18.0); Imm Gran Abs Auto 0.01 X10*3/uL (0.00-0.03); Imm Gran Pct Auto 0.3 % (0.0-0.4); Lymphocytes Percent Auto 25.3 % (20-40); Mean Corpuscular HGB Conc 32.8 g/dl (31.0-36.0); Mean Corpuscular Hemoglobin 32.3 pg (27.0-33.0); Mean Corpuscular Volume 98.5 fL (80.0-98.0); Mean Platelet Volume 8.5 fL (9.4-12.4); Monocytes Absolute Auto 0.6 X10*3/uL (0.1-1.2); Monocytes Percent Auto 16.2 % (2-11); Neutrophils Absolute Auto 2.1 x10*3/uL (2.0-8.3); Neutrophils Percent Auto 56.3 % (45-73); Platelet Count 159 X10*3/uL (160-400); Red Blood Count 3.93 X10*6/uL (4.60-5.80); Red Cell Distribution Width 14.8 % (11.0-16.0); White Blood Count 3.8 X10*3/uL (4.8-10.8)
[2021-08-09 10:13] LABS: INTERNATIONAL NORM RATIO 1.1 (0.9-1.1); Prothrombin Time 12.7 SEC (9.9-13.0)
[2021-08-09 10:16] LABS: Partial Thromboplastin Time 32.7 SEC (24.1-38.0)
--- NOTE | 2021-08-09 10:20 | PHA.MEDREC ---
Pharmacy Consult ? Medication Reconciliation Pharmacy has completed the medication reconciliation. Medication list was brought in from [facility]. Employee with patient reports that he is only on metformin 1000 mg BID. She also reported that he is suppose be on insulin however they have not been giving it to him because they do not always have a nurse on staff. She also confirms patient is no longer taking ABX Yamile Kinney, PharmD
[2021-08-09 10:23] LABS: Anion Gap 12 (12-20); Blood Urea Nitrogen 21 mg/dL (9-16); Calcium 9.1 mg/dL (8.4-10.2); Carbon Dioxide 28 mmol/L (22-29); Chloride 97 mmol/L (96-108); Creatinine Clr Calc Pharmacy 60.5; Estimated Glomerular Filt Rate > 60; Glucose Random 338 mg/dL (60-115); Potassium 4.1 mmol/L (3.3-5.1); Sodium 133 mmol/L (135-145)
[2021-08-09 10:26] LABS: Troponin-I High Sensitivity 3.8 ng/L (<3.5-35.0)
[2021-08-09 10:46] LABS: Stroke Lab Use COMPLETE
[2021-08-09 12:03] LABS: Glucose, Whole Blood 257 mg/dL (60-115)
[2021-08-09] MEDS: Insulin Lispro 100 UNIT/ML 3 ML VIAL 8 UNIT SUBCUT (12:10)
== END 2021-08-09 12:36 | disposition home or self-care (01) ==
PROVIDERS: Emergency Provider Emergency Medicine; PCP Internal Medicine
DX: R07.9 Chest pain, unspecified (principal); F03.91 Unspecified dementia, unspecified severity, with behavioral disturbance; F20.3 Undifferentiated schizophrenia; I10 Essential (primary) hypertension; E11.9 Type 2 diabetes mellitus without complications; G20 Parkinson's disease
CPT/HCPCS: 36415; 70450; 70496; 70498; 71045; 80048; 82550; 82947; 84484; 85025; 85610; 85730; 93005; 99284; Q9967

== ENCOUNTER 2021-11-29 14:15 | Emergency (ER) | payer MEDICARE, MEDICAID, SELFPAY ==
--- NOTE | ~2021-11-29 | CT_ITS ---
EXAMINATION: CT HEAD WITHOUT CONTRAST CLINICAL INFORMATION: Left-sided facial droop COMPARISON: None TECHNIQUE: Contiguous axial imaging was performed from the skull base to vertex without intravenous administration of contrast. This CT examination was performed using dose optimization techniques as appropriate, variously including the following: *Automated exposure control *Adjustment of mA and/or kV according to patient size (this includes techniques or standardized protocols for targeted exams where dose is matched to indication/reason for exam; i.e. extremities or head) *Use of iterative reconstruction technique DLP: 723 mGy-cm FINDINGS: There is no evidence of acute intracranial hemorrhage or territorial infarction. No abnormal mass effect or midline shift is seen. Bazan to white matter differentiation is well preserved. No extra-axial fluid collections are identified. The ventricles are normal in size. There is no abnormal attenuation within the brain parenchyma. The osseous structures and soft tissues are normal. The mastoid air cells and visualized portions of the paranasal sinuses are well aerated. CT/CT head/brain wo con IMPRESSION: No acute intracranial process seen.
--- NOTE | ~2021-11-29 | XR_ITS ---
EXAMINATION: XR CHEST CLINICAL INFORMATION: Left facial droop, now resolved. COMPARISON: Chest radiograph 08/09/2021, 07/31/2021 TECHNIQUE: Portable upright AP view of the chest was obtained. FINDINGS: There are low lung volumes with inspiration to the right posterior seventh rib. The lungs appear clear. There is no airspace consolidation, vascular congestion, or effusion. The heart is normal in size. The hilar and mediastinal contours are unremarkable. There is dextrocurvature thoracic spine. No visible acute bony abnormality. XR/XR chest 1V IMPRESSION: Low lung volumes. Lungs grossly clear.
[2021-11-29 14:24] VITALS: BP 130/78; PULSE 95; RESP 20; TEMP 36.7; O2SAT 97
[2021-11-29 14:26] VITALS: BMI 24.3
--- NOTE | 2021-11-29 14:43 | ECG_ITS ---
Test Reason : general medical Blood Pressure : / mmHG Vent. Rate : 088 BPM Atrial Rate : 088 BPM P-R Int : 138 ms QRS Dur : 088 ms QT Int : 350 ms P-R-T Axes : 040 -22 005 degrees QTc Int : 423 ms Normal sinus rhythm Normal ECG When compared with ECG of 09-AUG-2021 09:40, No significant change was found Referred By: Kassandra Stout Electronically Signed By:Aung Duarte
[2021-11-29 15:16] LABS: Basophils Percent Auto 0.4 % (0-2); Eosinophils Absolute Auto 0.1 X10*3/uL (0.0-0.4); Hematocrit 38.7 % (42.0-52.0); Hemoglobin 12.5 g/dl (14.0-18.0); INTERNATIONAL NORM RATIO 1.2 (0.9-1.1); Imm Gran Abs Auto 0.08 X10*3/uL (0.00-0.03); Imm Gran Pct Auto 1.7 % (0.0-0.4); Lymphocytes Absolute Auto 1.1 X10*3/uL (1.2-4.9); Lymphocytes Percent Auto 24.1 % (20-40); MANUAL DIFF FLAG SCAN; Mean Corpuscular HGB Conc 32.3 g/dl (31.0-36.0); Mean Corpuscular Hemoglobin 31.3 pg (27.0-33.0); Monocytes Absolute Auto 0.9 X10*3/uL (0.1-1.2); Monocytes Percent Auto 19.8 % (2-11); NRBC Pct Auto 0.4 /100WBC (0.0-0.2); Neutrophils Absolute Auto 2.4 x10*3/uL (2.0-8.3); PLT CLUMP 1; Prothrombin Time 13.1 SEC (9.9-13.0); Red Blood Count 3.99 X10*6/uL (4.60-5.80); Red Cell Distribution Width 13.2 % (11.0-16.0); SCAN SMEAR FLAG 1
[2021-11-29 15:17] LABS: White Blood Count 4.7 X10*3/uL (4.8-10.8)
[2021-11-29 15:18] LABS: Platelet Count 137 X10*3/uL (160-400)
[2021-11-29 15:19] LABS: Partial Thromboplastin Time 31.4 SEC (24.1-38.0)
[2021-11-29 15:24] LABS: COVID-19 Test Negative (Negative)
[2021-11-29 15:31] LABS: B Type Natriuretic Peptide 116 pg/mL (<100)
[2021-11-29 15:33] LABS: SLIDE REVIEW VERIFIED
--- NOTE | 2021-11-29 15:43 | PHA.MEDREC ---
Pharmacy Consult ? Medication Reconciliation Pharmacy has completed the medication reconciliation. Spoke to Mary from [facility] at [phone]. Patient is no longer taking sertraline (unable to swallow), so patient is on escitalopram liquid. Benztropine 1mg is seperated as 0.5mg bid. Patient is supposed to be on lisinopril but has not been getting it because there is no signed order for the the drug at the long term. Thanks Aniyah Edmond
[2021-11-29 15:48] LABS: Alanine Aminotransferase < 6 U/L (0-40); Albumin Level 3.6 g/dL (3.5-5.0); Alkaline Phosphatase 61 U/L (39-117); Anion Gap 12 (12-20); Aspartate Amino Transferase 9 U/L (5-37); Bilirubin Direct < 0.2 mg/dL (0.0-0.5); Bilirubin Total 0.3 mg/dL (0.0-1.0); Blood Urea Nitrogen 21 mg/dL (9-16); Calcium 9.1 mg/dL (8.4-10.2); Carbon Dioxide 26 mmol/L (22-29); Chloride 106 mmol/L (96-108); Creatinine Clr Calc Pharmacy 77.8; Estimated Glomerular Filt Rate > 60; Glucose Random 146 mg/dL (60-115); Potassium 4.4 mmol/L (3.3-5.1); Sodium 140 mmol/L (135-145); Total Protein 6.1 g/dL (6.5-8.0)
--- NOTE | 2021-11-29 16:38 | ED_ITS ---
HPI - General Adult General Chief complaint: General Medical <JADE Robles - Last Filed: 11/29/21 17:54> Stated complaint: QUEST STROKE FACIAL DROOP <JADE Robles - Last Filed: 11/29/21 17:54> Time Seen by Provider: 11/29/21 14:32 <JADE Robles - Last Filed: 11/29/21 17:54> Source: patient and EMS <JADE Robles - Last Filed: 11/29/21 17:54> Mode of arrival: EMS <JADE Robles - Last Filed: 11/29/21 17:54> History of Present Illness HPI narrative: 71-year-old male with a past medical history of depression, diabetes, developmental delay, GERD, HTN, HLD, metabolic encephalopathy, schizophrenia, diabetes, CVA, Parkinson's, BIBA from care home for left-sided facial droop and swelling noted 2 days ago which resolved this morning. No reported fall/trauma. Per care home staff member patient at baseline. No known fever, nausea/vomiting, diarrhea, recent illness History limited due to patient's chronic mental status <JADE Robles - Last Filed: 11/29/21 17:54> Onset (ago): day(s) <JADE Robles - Last Filed: 11/29/21 17:54> Related Data Home medications: Home Medications Medication Instructions Recorded Confirmed melatonin 3 mg tablet 3 mg PO BEDTIME 08/09/21 11/29/21 benztropine 1 mg tablet 0.5 mg PO BID 11/29/21 11/29/21 divalproex 125 mg capsule,delayed 4 cap PO BID 11/29/21 11/29/21 release sprinkle insulin glargine 100 unit/mL (3 10 unit SUBCUT DAILY@1600 11/29/21 11/29/21 mL) subcutaneous pen (Basaglar KwikPen U-100 Insulin) mirtazapine 15 mg disintegrating 1 tab PO BEDTIME 11/29/21 11/29/21 tablet tamsulosin 0.4 mg capsule 0.8 mg PO BEDTIME 11/29/21 11/29/21 Previous Rx's Medication Instructions Recorded aspirin 81 mg tablet,delayed 81 mg PO DAILY 90 Days #90 tab 05/14/21 release (Adult Low Dose Aspirin) topiramate 50 mg tablet (Topamax) 50 mg PO BID 90 Days #180 tab 06/19/21 atorvastatin 20 mg tablet 20 mg PO BEDTIME #90 tab 07/16/21 blood sugar diagnostic (Prodigy No #100 ea 08/10/21 Coding) metformin 1,000 mg tablet 1,000 mg PO BID #180 tab 08/10/21 gabapentin 300 mg capsule 300 mg PO BEDTIME #90 cap 08/21/21 risperidone 1 mg tablet 1 mg PO BID #180 tab 08/21/21 carbidopa 25 mg-levodopa 100 mg 1.5 tab PO QID 90 Days #540 tab 10/11/21 tablet escitalopram oxalate 5 mg/5 mL 5 mg (5 mL) PO DAILY 30 Days #150 11/15/21 oral solution ml lisinopril 20 mg tablet 20 mg PO DAILY #30 tab 11/21/21 cefuroxime axetil 500 mg tablet 500 mg PO Q12H 10 Days #20 tab 11/29/21 lisinopril 20 mg tablet 20 mg PO DAILY 14 Days #14 tab 11/29/21 <JADE Robles - Last Filed: 11/29/21 17:54> Allergies/adverse reactions: Allergies Allergy/AdvReac Type Severity Reaction Status Date / Time perfume Allergy Intermediate ITCHING Verified 11/01/21 10:58 <JADE Robles Last Filed: 11/29/21 17:54> Review of Systems Review of Systems: Constitutional: No Fever, No Chills, No Fatigue, No Malaise Cardiovascular: No Chest Pain, No SOB Respiratory: No Cough, No Dyspnea Gastrointestinal: No Vomiting, No Diarrhea, No Constipation, No Abdominal pain, Skin: No Skin Lesions, No rash Neuro: + facial droop (resolved) ROS limited secondary to patient's baseline mental status <JADE Robles Last Filed: 11/29/21 17:54> Yes all other systems are reviewed and are negative <JADE Robles Last Filed: 11/29/21 17:54> Neurologic: Denies Abnormal speech present <JADE Robles Last Filed: 11/29/21 17:54> [facility] Past Medical History Attestation statement: The following information was validated with the patient. <JADE Robles - Last Filed: 11/29/21 17:54> Medical History: Medical History Annual physical exam BPH with obstruction/lower urinary tract symptoms Depression Developmental delay, moderate Diabetes type 2, uncontrolled Dysphagia Gastroesophageal reflux disease Hypercholesteremia Hypertension Metabolic encephalopathy Occipital infarction Parkinson's disease Rash Schizophrenia Tubular adenoma of colon Type 2 diabetes mellitus with hyperglycemia Type 2 diabetes mellitus with hyperglycemia, without long-term current use of insulin Vitamin D deficiency <JADE Robles - Last Filed: 11/29/21 17:54> Surgical History: Surgical History History of circumcision History of colonoscopy History of prostate surgery <JADE Robles - Last Filed: 11/29/21 17:54> Family History Family History: Family History Father Type II diabetes mellitus Mother Type II diabetes mellitus <JADE Robles - Last Filed: 11/29/21 17:54> Social History Social History: Social History Household Members: Other Housing: Other Housing Other:: [facility] Alcohol intake: never Patient Tobacco Use Status: Never used Tobacco e-Cigarette/Vaping Use: Never Used Second Hand Smoke Exposure: No Advance Directives: Yes Advance Directives on File: Yes Advance Directives Date on File: 07/11/21 service: No Current occupational status: disabled <JADE Robles - Last Filed: 11/29/21 17:54> Physical Exam ED Vital Signs: Vital Signs - 24 hr 11/29/21 14:24 11/29/21 18:00 11/29/21 20:13 Temperature 98.1 F Pulse Rate 95 78 82 Respiratory Rate 20 16 16 Blood Pressure 130/78 152/83 H 152/84 H Pulse Oximetry 97 97 98 BMI result Body Mass Index 24.3 <JADE Robles - Last Filed: 11/29/21 17:54> Vital Signs - 24 hr 11/29/21 14:24 11/29/21 18:00 11/29/21 20:13 Temperature 98.1 F Pulse Rate 95 78 82 Respiratory Rate 20 16 16 Blood Pressure 130/78 152/83 H 152/84 H Pulse Oximetry 97 97 98 BMI result Body Mass Index 24.3 <JADE Hester - Last Filed: 11/29/21 22:38> Const General: cooperative, healthy appearing, no acute distress, alert and awake <JADE Robles - Last Filed: 11/29/21 17:54> Limitations: no limitations <JADE Robles - Last Filed: 11/29/21 17:54> HENMT Head: Yes normal to inspection and Yes atraumatic <JADE Robles - Last Filed: 11/29/21 17:54> Ears: hearing grossly normal bilaterally <JADE Robles - Last Filed: 11/29/21 17:54> General nose exam: Normal external nose present <JADE Robles - Last Filed: 11/29/21 17:54> Face and sinus: Yes normal facial exam <JADE Robles - Last Filed: 11/29/21 17:54> Mouth: Normal oral and palatal mucosa present <JADE Robles - Last Filed: 11/29/21 17:54> Throat: Yes posterior oropharynx normal, Yes uvula midline and No peritonsillar mass <JADE Robles - Last Filed: 11/29/21 17:54> Eyes General: appearance normal, both eyes and all related structures <JADE Robles - Last Filed: 11/29/21 17:54> EOM: EOMs intact bilaterally <JADE Robles - Last Filed: 11/29/21 17:54> Neck Neck: Yes normal visual inspection and Yes no meningeal signs <JADE Robles - Last Filed: 11/29/21 17:54> Resp Effort & Inspection: normal respiratory effort and no respiratory distress <JADE Robles - Last Filed: 11/29/21 17:54> Auscultation: clear to auscultation bilaterally, no rales, no rhonchi and no wheezes <Kassandra Pouliot, PA - Last Filed: 11/29/21 17:54> Cardio Rate: regular rate <Kassandra Kandacechandrat PA - Last Filed: 11/29/21 17:54> Heart sounds: S1 normal heart sound present and S2 normal heart sound present <Kassandra Kandacekaycee PA - Last Filed: 11/29/21 17:54> GI Inspection: Yes normal to inspection <Kassandra Kandacekaycee PA - Last Filed: 11/29/21 17:54> Palpation (GI): Soft to palpation, nontender, no guarding and not rigid <Kassandra Poulchandrat PA - Last Filed: 11/29/21 17:54> Skin Rashes: no rashes <Kassandra Poulchandrat PA - Last Filed: 11/29/21 17:54> Wounds: no wounds <Kassandra Kandacechandrat PA - Last Filed: 11/29/21 17:54> Neuro Other: Awake and alert, not answering questions appropriately (baseline) <Kassandra Kandacekaycee PA - Last Filed: 11/29/21 17:54> General: gait normal, tone normal, moves all extremities, no meningeal signs, no focal motor deficits and CN's II-XI intact bilaterally <Kassandra Kandacekaycee PA - Last Filed: 11/29/21 17:54> Cranial nerves: Yes CN's II-XII intact bilaterally and Yes Bilaterally intact EOM present <Kassandra Kandacekaycee PA - Last Filed: 11/29/21 17:54> Speech: No Abnormal speech present <Kassandra Kandacekaycee PA - Last Filed: 11/29/21 17:54> Motor exam (neuro): 5/5 motor strength present throughout <Kassandra Kandacechandrat PA - Last Filed: 11/29/21 17:54> Extrem Other: Mild bilateral LE pitting edema <Kassandra Poulkaycee PA - Last Filed: 11/29/21 17:54> General: Yes normal to inspection <Kassandra Kandacekaycee PA - Last Filed: 11/29/21 17:54> Course Course Course Narrative: -1638--chronic leukopenia. H&H stable. BNP mildly elevated to 116. Labs otherwise unremarkable XR chest 1V IMPRESSION: Low lung volumes. Lungs grossly clear. CT head/brain wo con IMPRESSION: No acute intracranial process seen > case discussed with hospitalist, patient does not meet inpatient criteria. Is high risk for CVA although CT unremarkable. Patient already on statin/ASA. Plan to DC back to care home to follow-up with PCP/neurology follow-up and close observation. Recent signs and symptoms and strict return precautions d iscussed with staff members, they verbalized understanding -1800--ED care transferred to JADE Hinojosa pending UA and DC back to care home <JADE Robles - Last Filed: 11/29/21 17:54> Reevaluation(s) Reevaluation #1: Patient to be discharged. UA shows urinary tract infection. Patient will be discharged with antibiotics. Patient alert oriented x3. Neuro exam intact <JADE Hester - Last Filed: 11/29/21 22:38> Time: 22:30 <JADE Hester Last Filed: 11/29/21 22:38> Medical Decision Making MDM Narrative Medical decision making narrative: 71-year-old male with a past medical history of depression, diabetes, developmental delay, GERD, HTN, HLD, metabolic encephalopathy, schizophrenia, diabetes, CVA, Parkinson's, BIBA from care home for left-sided facial droop and swelling noted 2 days ago which resolved this morning. On exam vital signs stable, NAD, awake and alert, A&Ox0 (baseline), no focal deficits, no facial droop. Concern for CVA. Symptoms atypical for TIA. Rule out metabolic and infectious etiologies. Plan: EKG, labs, UA, head CT, re-evaluate <JADE Robles - Last Filed: 11/29/21 17:54> Medical Records Medical records reviewed: Yes I reviewed the patient's medical records. <JADE Robles Last Filed: 11/29/21 17:54> Lab Data Lab results reviewed: Yes I reviewed the patient's lab results. <JADE Robles Last Filed: 11/29/21 17:54> Result diagrams: : 11/29/21 15:02 11/29/21 15:02 <JADE Robles Last Filed: 11/29/21 17:54> Labs: Lab Results 11/29/21 11/29/21 11/29/21 Range/Units 15:02 15:02 15:02 WBC 4.7 L (4.8-10.8) X10*3/uL RBC 3.99 L (4.60-5.80) X10*6/uL Hgb 12.5 L (14.0-18.0) g/dl Hct 38.7 L (42.0-52.0) % MCV 97.0 (80.0-98.0) fL MCH 31.3 (27.0-33.0) pg MCHC 32.3 (31.0-36.0) g/dl RDW 13.2 (11.0-16.0) % Plt Count 137 L (160-400) X10*3/uL MPV 9.0 L (9.4-12.4) fL Immature Gran % (Auto) 1.7 H (0.0-0.4) % Neut % (Auto) 51.0 (45-73) % Lymph % (Auto) 24.1 (20-40) % [place] % (Auto) 19.8 H (2-11) % Eos % (Auto) 3.0 (0-4) % Baso % (Auto) 0.4 (0-2) % Lymph # (Auto) 1.1 L (1.2-4.9) X10*3/uL [place] # (Auto) 0.9 (0.1-1.2) X10*3/uL Eos # (Auto) 0.1 (0.0-0.4) X10*3/uL Baso # (Auto) 0.0 (0.0-0.2) X10*3/uL Abs Immat Gran (auto) 0.08 H (0.00-0.03) X10*3/uL Absolute Neuts (auto) 2.4 (2.0-8.3) x10*3/uL Absolute Nucleated RBC 0.020 H (0.0-0.012) X10*3/uL Nucleated RBC % (auto) 0.4 H (0.0-0.2) /100WBC Smear Tech's Comments VERIFIED PT 13.1 H (9.9-13.0) SEC INR 1.2 H (0.9-1.1) APTT 31.4 (24.1-38.0) SEC Sodium 140 (135-145) mmol/L Potassium 4.4 (3.3-5.1) mmol/L Chloride 106 (96-108) mmol/L Carbon Dioxide 26 (22-29) mmol/L Anion Gap 12 (12-20) BUN 21 H (9-16) mg/dL Creatinine 0.83 (0.5-1.4) mg/dL Estim Creat Clear Calc 77.8 Estimated GFR > 60 Random Glucose 146 H D (60-115) mg/dL Calcium 9.1 (8.4-10.2) mg/dL Magnesium 2.0 (1.6-2.6) mg/dL Total Bilirubin 0.3 (0.0-1.0) mg/dL Direct Bilirubin < 0.2 (0.0-0.5) mg/dL AST 9 (5-37) U/L ALT < 6 (0-40) U/L Alkaline Phosphatase 61 (39-117) U/L B-Natriuretic Peptide (<100) pg/mL Total Protein 6.1 L (6.5-8.0) g/dL Albumin 3.6 (3.5-5.0) g/dL Urine Color Urine Appearance Urine pH (5.0-8.0) Ur Specific Harper (1.005-1.025) Urine Protein (NEG-TRACE) MG/DL Urine Glucose (UA) (NEG) MG/DL Urine Ketones (NEG) MG/DL Urine Blood (NEG) Urine Nitrite (NEG) Ur Leukocyte Esterase (NEG) Urine RBC (0) /HPF Urine WBC (0-4) /HPF Urine WBC Clumps Ur Squamous Epith Cells /LPF Amorphous Sediment /LPF Urine Bacteria /LPF Urine Mucus /LPF COVID-19 (MICHELLE) (Negative) COVID-19 Clin Com 11/29/21 11/29/21 11/29/21 Range/Units 15:02 15:02 20:43 WBC (4.8-10.8) X10*3/uL RBC (4.60-5.80) X10*6/uL Hgb (14.0-18.0) g/dl Hct (42.0-52.0) % MCV (80.0-98.0) fL MCH (27.0-33.0) pg MCHC (31.0-36.0) g/dl RDW (11.0-16.0) % Plt Count (160-400) X10*3/uL MPV (9.4-12.4) fL Immature Gran % (Auto) (0.0-0.4) % Neut % (Auto) (45-73) % Lymph % (Auto) (20-40) % [place] % (Auto) (2-11) % Eos % (Auto) (0-4) % Baso % (Auto) (0-2) % Lymph # (Auto) (1.2-4.9) X10*3/uL [place] # (Auto) (0.1-1.2) X10*3/uL Eos # (Auto) (0.0-0.4) X10*3/uL Baso # (Auto) (0.0-0.2) X10*3/uL Abs Immat Gran (auto) (0.00-0.03) X10*3/uL Absolute Neuts (auto) (2.0-8.3) x10*3/uL Absolute Nucleated RBC (0.0-0.012) X10*3/uL Nucleated RBC % (auto) (0.0-0.2) /100WBC Smear Tech's Comments PT (9.9-13.0) SEC INR (0.9-1.1) APTT (24.1-38.0) SEC Sodium (135-145) mmol/L Potassium (3.3-5.1) mmol/L Chloride (96-108) mmol/L Carbon Dioxide (22-29) mmol/L Anion Gap (12-20) BUN (9-16) mg/dL Creatinine (0.5-1.4) mg/dL Estim Creat Clear Calc Estimated GFR Random Glucose (60-115) mg/dL Calcium (8.4-10.2) mg/dL Magnesium (1.6-2.6) mg/dL Total Bilirubin (0.0-1.0) mg/dL Direct Bilirubin (0.0-0.5) mg/dL AST (5-37) U/L ALT (0-40) U/L Alkaline Phosphatase (39-117) U/L B-Natriuretic Peptide 116 H (<100) pg/mL Total Protein (6.5-8.0) g/dL Albumin (3.5-5.0) g/dL Urine Color ORANGE A Urine Appearance CLOUDY Urine pH 7.5 (5.0-8.0) Ur Specific Harper 1.010 (1.005-1.025) Urine Protein TRACE (NEG-TRACE) MG/DL Urine Glucose (UA) NEG (NEG) MG/DL Urine Ketones NEG (NEG) MG/DL Urine Blood 2+ H (NEG) Urine Nitrite POS H (NEG) Ur Leukocyte Esterase 3+ H (NEG) Urine RBC 10-14 H (0) /HPF Urine WBC 30-49 H (0-4) /HPF Urine WBC Clumps NOTED Ur Squamous Epith Cells NONE /LPF Amorphous Sediment TRACE /LPF Urine Bacteria TRACE /LPF Urine Mucus TRACE /LPF COVID-19 (MICHELLE) Negative (Negative) COVID-19 Clin Com See Note <JADE Robles - Last Filed: 11/29/21 17:54> Lab Results 11/29/21 11/29/21 11/29/21 Range/Units 15:02 15:02 15:02 WBC 4.7 L (4.8-10.8) X10*3/uL RBC 3.99 L (4.60-5.80) X10*6/uL Hgb 12.5 L (14.0-18.0) g/dl Hct 38.7 L (42.0-52.0) % MCV 97.0 (80.0-98.0) fL MCH 31.3 (27.0-33.0) pg MCHC 32.3 (31.0-36.0) g/dl RDW 13.2 (11.0-16.0) % Plt Count 137 L (160-400) X10*3/uL MPV 9.0 L (9.4-12.4) fL Immature Gran % (Auto) 1.7 H (0.0-0.4) % Neut % (Auto) 51.0 (45-73) % Lymph % (Auto) 24.1 (20-40) % [place] % (Auto) 19.8 H (2-11) % Eos % (Auto) 3.0 (0-4) % Baso % (Auto) 0.4 (0-2) % Lymph # (Auto) 1.1 L (1.2-4.9) X10*3/uL [place] # (Auto) 0.9 (0.1-1.2) X10*3/uL Eos # (Auto) 0.1 (0.0-0.4) X10*3/uL Baso # (Auto) 0.0 (0.0-0.2) X10*3/uL Abs Immat Gran (auto) 0.08 H (0.00-0.03) X10*3/uL Absolute Neuts (auto) 2.4 (2.0-8.3) x10*3/uL Absolute Nucleated RBC 0.020 H (0.0-0.012) X10*3/uL Nucleated RBC % (auto) 0.4 H (0.0-0.2) /100WBC Smear Tech's Comments VERIFIED PT 13.1 H (9.9-13.0) SEC INR 1.2 H (0.9-1.1) APTT 31.4 (24.1-38.0) SEC Sodium 140 (135-145) mmol/L Potassium 4.4 (3.3-5.1) mmol/L Chloride 106 (96-108) mmol/L Carbon Dioxide 26 (22-29) mmol/L Anion Gap 12 (12-20) BUN 21 H (9-16) mg/dL Creatinine 0.83 (0.5-1.4) mg/dL Estim Creat Clear Calc 77.8 Estimated GFR > 60 Random Glucose 146 H D (60-115) mg/dL Calcium 9.1 (8.4-10.2) mg/dL Magnesium 2.0 (1.6-2.6) mg/dL Total Bilirubin 0.3 (0.0-1.0) mg/dL Direct Bilirubin < 0.2 (0.0-0.5) mg/dL AST 9 (5-37) U/L ALT < 6 (0-40) U/L Alkaline Phosphatase 61 (39-117) U/L B-Natriuretic Peptide (<100) pg/mL Total Protein 6.1 L (6.5-8.0) g/dL Albumin 3.6 (3.5-5.0) g/dL Urine Color Urine Appearance Urine pH (5.0-8.0) Ur Specific Harper (1.005-1.025) Urine Protein (NEG-TRACE) MG/DL Urine Glucose (UA) (NEG) MG/DL Urine Ketones (NEG) MG/DL Urine Blood (NEG) Urine Nitrite (NEG) Ur Leukocyte Esterase (NEG) Urine RBC (0) /HPF Urine WBC (0-4) /HPF Urine WBC Clumps Ur Squamous Epith Cells /LPF Amorphous Sediment /LPF Urine Bacteria /LPF Urine Mucus /LPF COVID-19 (MICHELLE) (Negative) COVID-19 Clin Com 11/29/21 11/29/21 11/29/21 Range/Units 15:02 15:02 20:43 WBC (4.8-10.8) X10*3/uL RBC (4.60-5.80) X10*6/uL Hgb (14.0-18.0) g/dl Hct (42.0-52.0) % MCV (80.0-98.0) fL MCH (27.0-33.0) pg MCHC (31.0-36.0) g/dl RDW (11.0-16.0) % Plt Count (160-400) X10*3/uL MPV (9.4-12.4) fL Immature Gran % (Auto) (0.0-0.4) % Neut % (Auto) (45-73) % Lymph % (Auto) (20-40) % [place] % (Auto) (2-11) % Eos % (Auto) (0-4) % Baso % (Auto) (0-2) % Lymph # (Auto) (1.2-4.9) X10*3/uL [place] # (Auto) (0.1-1.2) X10*3/uL Eos # (Auto) (0.0-0.4) X10*3/uL Baso # (Auto) (0.0-0.2) X10*3/uL Abs Immat Gran (auto) (0.00-0.03) X10*3/uL Absolute Neuts (auto) (2.0-8.3) x10*3/uL Absolute Nucleated RBC (0.0-0.012) X10*3/uL Nucleated RBC % (auto) (0.0-0.2) /100WBC Smear Tech's Comments PT (9.9-13.0) SEC INR (0.9-1.1) APTT (24.1-38.0) SEC Sodium (135-145) mmol/L Potassium (3.3-5.1) mmol/L Chloride (96-108) mmol/L Carbon Dioxide (22-29) mmol/L Anion Gap (12-20) BUN (9-16) mg/dL Creatinine (0.5-1.4) mg/dL Estim Creat Clear Calc Estimated GFR Random Glucose (60-115) mg/dL Calcium (8.4-10.2) mg/dL Magnesium (1.6-2.6) mg/dL Total Bilirubin (0.0-1.0) mg/dL Direct Bilirubin (0.0-0.5) mg/dL AST (5-37) U/L ALT (0-40) U/L Alkaline Phosphatase (39-117) U/L B-Natriuretic Peptide 116 H (<100) pg/mL Total Protein (6.5-8.0) g/dL Albumin (3.5-5.0) g/dL Urine Color ORANGE A Urine Appearance CLOUDY Urine pH 7.5 (5.0-8.0) Ur Specific Harper 1.010 (1.005-1.025) Urine Protein TRACE (NEG-TRACE) MG/DL Urine Glucose (UA) NEG (NEG) MG/DL Urine Ketones NEG (NEG) MG/DL Urine Blood 2+ H (NEG) Urine Nitrite POS H (NEG) Ur Leukocyte Esterase 3+ H (NEG) Urine RBC 10-14 H (0) /HPF Urine WBC 30-49 H (0-4) /HPF Urine WBC Clumps NOTED Ur Squamous Epith Cells NONE /LPF Amorphous Sediment TRACE /LPF Urine Bacteria TRACE /LPF Urine Mucus TRACE /LPF COVID-19 (MICHELLE) Negative (Negative) COVID-19 Clin Com See Note <JADE Hester - Last Filed: 11/29/21 22:38> ECG Data Attestation: I personally reviewed and interpreted this ECG as follows: <JADE Robles - Last Filed: 11/29/21 17:54> Interpretation: EKG normal sinus rhythm at a rate of 88. Pr interval 138. QRS 88. QTC 423. no STEMI <JADE Robles - Last Filed: 11/29/21 17:54> Discharge Plan Discharge Clinical Impression: Facial droop, Acute UTI <JADE Robles Last Filed: 11/29/21 17:54> Patient Disposition: Home, Self-Care <JADE Robles Last Filed: 11/29/21 17:54> Instructions: Urinary Tract Infection in Men (ED) <JADE Robles Last Filed: 11/29/21 17:54> Additional Instructions: Your blood work was reassuring today. Her CT scans were negative. It is important for you to follow-up with her doctor. If you develop acute weakness, facial droop, slurred speech come to the ED immediately for evaluation If patient has change in mental status patient return to the ED. Continue home prescribed medications <JADE Robles Last Filed: 11/29/21 17:54> Prescriptions: New cefuroxime axetil 500 mg tablet 500 mg PO Q12H 10 Days Qty: 20 0RF lisinopril 20 mg tablet 20 mg PO DAILY 14 Days Qty: 14 0RF No Action aspirin [Adult Low Dose Aspirin] 81 mg tablet,delayed release (DR/EC) 81 mg PO DAILY 90 Days Qty: 90 3RF topiramate [Topamax] 50 mg tablet 50 mg PO BID 90 Days Qty: 180 2RF atorvastatin 20 mg tablet 20 mg PO BEDTIME Qty: 90 3RF (DME) Prodigy No Coding Strip See Rx Instructions .Route Qty: 100 6RF Rx Instructions: Test 3 times daily metformin 1,000 mg tablet 1,000 mg PO BID Qty: 180 3RF gabapentin 300 mg capsule 300 mg PO BEDTIME Qty: 90 3RF risperidone 1 mg tablet 1 mg PO BID Qty: 180 0RF carbidopa-levodopa 25-100 mg tablet 1.5 tab PO QID 90 Days Qty: 540 3RF escitalopram oxalate 5 mg/5 mL solution 5 mg PO DAILY 30 Days Qty: 150 2RF lisinopril 20 mg tablet 20 mg PO DAILY Qty: 30 3RF Rx Instructions: take one tablet by mouth once in the evening melatonin 3 mg Tablet 3 mg PO BEDTIME 0RF divalproex 125 mg capsule, delayed rel sprinkle 4 cap PO BID 0RF benztropine 1 mg tablet 0.5 mg PO BID 0RF mirtazapine 15 mg tablet,disintegrating 1 tab PO BEDTIME 0RF tamsulosin 0.4 mg capsule 0.8 mg PO BEDTIME 0RF Basaglar JusticeikPen U-100 Insulin 100 unit/mL (3 mL) insulin pen 10 unit subcut DAILY@1600 0RF <JADE Robles - Last Filed: 11/29/21 17:54> Referrals: Naye Chavis MD [Physician] - 5 days Po,Claire Christianson MD [Primary Care Provider] - 2 days <JADE Robles - Last Filed: 11/29/21 17:54> Print Language: Venezuelan <JADE Robles - Last Filed: 11/29/21 17:54>
[2021-11-29 18:00] VITALS: BP 152/83; PULSE 78; RESP 16; O2SAT 97
[2021-11-29 20:13] VITALS: BP 152/84; PULSE 82; RESP 16; O2SAT 98
[2021-11-29 20:56] LABS: Appearance Urine CLOUDY; Color Urine ORANGE; Glucose Urine UA NEG (NEG); Leukocyte Esterase Urine 3+ (NEG); Nitrite Urine POS (NEG); PH 7.5 (5.0-8.0); UACC Culture Trigger YES; Urine Blood 2+ (NEG); Urine Ketones NEG (NEG); Urine Protein TRACE MG/DL (NEG-TRACE)
[2021-11-29 21:30] LABS: WBC Urine 30-49 /HPF (0-4)
[2021-11-29 21:32] LABS: Amorphous Sediment Urine TRACE /LPF; Bacteria Urine TRACE /LPF; Mucus Urine TRACE /LPF; WBC Clumps Urine NOTED
[2021-11-29 22:47] VITALS: BP 142/78; PULSE 68; RESP 16; TEMP 37.1; O2SAT 98
== END 2021-11-29 23:11 | disposition home or self-care (01) ==
PROVIDERS: Physician Assistant; Emergency Provider Emergency Medicine Emergency Medical Services; PCP Internal Medicine
DX: R29.810 Facial weakness (principal); N39.0 Urinary tract infection, site not specified; R60.0 Localized edema; I10 Essential (primary) hypertension; E11.9 Type 2 diabetes mellitus without complications; E78.5 Hyperlipidemia, unspecified; G20 Parkinson's disease; Z86.73 Personal history of transient ischemic attack (TIA), and cerebral infarction without residual deficits; Z20.822 Contact with and (suspected) exposure to COVID-19; Z79.82 Long term (current) use of aspirin; Z79.02 Long term (current) use of antithrombotics/antiplatelets
CPT/HCPCS: 51701; 70450; 71045; 80048; 80076; 81001; 81003; 83735; 83880; 85025; 85610; 85730; 87086; 87635; 93005; 99284

== ENCOUNTER 2021-12-02 10:03 | Observation (INO) | payer MEDICARE, MEDICAID, SELFPAY ==
--- NOTE | ~2021-12-02 | CT_ITS ---
EXAMINATION: CT HEAD WITHOUT CONTRAST CLINICAL INFORMATION: Left-sided facial droop. COMPARISON: Most recent CT head dated 11/29/2021. TECHNIQUE: Contiguous axial imaging was performed from the skull base to vertex without intravenous administration of contrast. This CT examination was performed using dose optimization techniques as appropriate, variously including the following: *Automated exposure control *Adjustment of mA and/or kV according to patient size (this includes techniques or standardized protocols for targeted exams where dose is matched to indication/reason for exam; i.e. extremities or head) *Use of iterative reconstruction technique DLP: 745 mGy-cm FINDINGS: There is no evidence of acute intracranial hemorrhage or territorial infarction. No abnormal mass effect or midline shift is seen. [place] to white matter differentiation is well preserved. No extra-axial fluid collections are identified. The ventricles are normal in size. There is no abnormal attenuation within the brain parenchyma. The osseous structures and soft tissues are normal. The mastoid air cells and visualized portions of the paranasal sinuses are well aerated. CT/CT head/brain wo con IMPRESSION: No acute intracranial pathology.
--- NOTE | ~2021-12-02 | MR_ITS ---
EXAMINATION: MR BRAIN WITHOUT CONTRAST CLINICAL INFORMATION: Left-sided facial droop. COMPARISON: CT head from 12/02/2021. Brain MRI from 05/19/2020. TECHNIQUE: MRI of the brain was obtained using routine sequences without contrast. FINDINGS: No focal restricted diffusion is demonstrated to suggest acute or subacute cerebral ischemia. No evidence of acute or chronic hemorrhagic products on heme-sensitive imaging. Scattered periventricular and deep white matter T2 FLAIR hyperintensities consistent with mild underlying microangiopathy. Small chronic lacunar infarct of the left cerebellar hemisphere. Proportional prominence of the ventricles and sulcal spaces without evidence of obstructive hydrocephalus. No abnormal mass effect. No midline shift. Flattening of the pituitary gland. Normal positioning of the cerebellar tonsils. Normal arterial and venous vascular flow voids are present. Advanced multilevel degenerative spondyloarthropathy of the cervical spine with associated marrow signal changes. Otherwise, normal homogeneous marrow signal. Moderate mucosal thickening of the paranasal sinuses. Mild leftward nasal septal deviation. No signal abnormalities within the mastoids. MR/MR head/brain wo con IMPRESSION: 1. No acute intracranial abnormalities. 2. Mild underlying microangiopathy and generalized cerebral volume loss.
--- NOTE | ~2021-12-02 | XR_ITS ---
EXAMINATION: XR ABDOMEN KUB CLINICAL INDICATION: MRI screening. COMPARISON: None TECHNIQUE: AP view of the abdomen. FINDINGS: There is a nonobstructive bowel gas pattern. Moderate stool seen within the colon distally to the rectum. Mild to moderate degenerative changes are seen in the lumbar spine and hips bilaterally. No radiopaque foreign body. External leads overlie the mid abdomen. XR/XR KUB IMPRESSION: 1. Nonobstructive bowel gas pattern. Moderate colonic stool burden. 2. No radiopaque foreign body.
--- NOTE | ~2021-12-02 | XR_ITS ---
EXAMINATION: XR CHEST CLINICAL INFORMATION: MRI screen COMPARISON: Chest radiograph 3 days ago on 11/29/2021 TECHNIQUE: Frontal view of the chest was obtained. FINDINGS: As on the recent prior study no radiopaque metallic foreign bodies or implants are seen. Heart size normal. Some left basilar atelectasis is present. No infiltrates or effusions. XR/XR chest 1V IMPRESSION: No acute intrathoracic disease. No radiopaque metallic foreign body.
[2021-12-02 10:06] VITALS: BP 118/74; PULSE 101; RESP 18; TEMP 36.6; O2SAT 98
--- NOTE | 2021-12-02 10:27 | ECG_ITS ---
Test Reason : AMS Blood Pressure : / mmHG Vent. Rate : 081 BPM Atrial Rate : 081 BPM P-R Int : 142 ms QRS Dur : 086 ms QT Int : 352 ms P-R-T Axes : 043 -19 007 degrees QTc Int : 408 ms Normal sinus rhythm Normal ECG When compared with ECG of 29-NOV-2021 14:44, No significant change was found Referred By: Kassandra Stout Electronically Signed By:RAFAELA SOUTH MD
--- NOTE | 2021-12-02 10:27 | PC.NURSE ---
pt off to ct scan via stretcher.
--- NOTE | 2021-12-02 10:33 | ED_ITS ---
HPI - General Adult General Chief complaint: General Medical Stated complaint: facial drop Time Seen by Provider: 12/02/21 10:07 Source: patient Mode of arrival: ambulatory History of Present Illness HPI narrative: 71-year-old male with a past medical history of depression, diabetes, developmental delay, GERD, HTN, HLD, metabolic encephalopathy, schizophrenia, diabetes, CVA, Parkinson's, BIBA from custodial for left-sided facial droop noted at 9:30AM while patient was being bathed. Resolved during evaluation. Of note patient recently seen and treated in our facility on 11/29/21 for similar symptoms, diagnosed with UTI. No reported trauma/falls History limited due to patient's chronic mental status, history obtained from custodial staff Onset (ago): hour(s) Location: face Related Data Home Medications Medication Instructions Recorded Confirmed melatonin 3 mg tablet 3 mg PO BEDTIME 08/09/21 12/02/21 benztropine 1 mg tablet 0.5 mg PO BID 11/29/21 12/02/21 divalproex 125 mg capsule,delayed 4 cap PO BID 11/29/21 12/02/21 release sprinkle insulin glargine 100 unit/mL (3 10 unit SUBCUT DAILY@1600 11/29/21 12/02/21 mL) subcutaneous pen (Basaglar KwikPen U-100 Insulin) mirtazapine 15 mg disintegrating 1 tab PO BEDTIME 11/29/21 12/02/21 tablet tamsulosin 0.4 mg capsule 0.8 mg PO BEDTIME 11/29/21 12/02/21 sertraline 50 mg tablet 1 tab PO DAILY 12/02/21 12/02/21 Previous Rx's Medication Instructions Recorded aspirin 81 mg tablet,delayed 81 mg PO DAILY 90 Days #90 tab 05/14/21 release (Adult Low Dose Aspirin) topiramate 50 mg tablet (Topamax) 50 mg PO BID 90 Days #180 tab 06/19/21 atorvastatin 20 mg tablet 20 mg PO BEDTIME #90 tab 07/16/21 blood sugar diagnostic (Prodigy No #100 ea 08/10/21 Coding) metformin 1,000 mg tablet 1,000 mg PO BID #180 tab 08/10/21 gabapentin 300 mg capsule 300 mg PO BEDTIME #90 cap 08/21/21 risperidone 1 mg tablet 1 mg PO BID #180 tab 08/21/21 carbidopa 25 mg-levodopa 100 mg 1.5 tab PO QID 90 Days #540 tab 10/11/21 tablet lisinopril 20 mg tablet 20 mg PO DAILY 14 Days #14 tab 11/29/21 Allergies Allergy/AdvReac Type Severity Reaction Status Date / Time perfume Allergy Intermediate ITCHING Verified 12/02/21 10:15 Review of Systems Review of Systems: Constitutional: No Fever, No Chills Cardiovascular: No Chest Pain, No SOB, No Edema Respiratory: No Cough, No Dyspnea Gastrointestinal: No Vomiting, No Diarrhea, No Abdominal pain Musculoskeletal: No Joint Swelling Skin: No Skin Lesions, No rash Neuro: +facial droop (resolved) History limited due to patient's baseline mental status Yes all other systems are reviewed and are negative Neurologic: Denies Abnormal speech present COUNT INCLUDES THE [facility] Past Medical History Attestation statement: The following information was validated with the patient. Source: old records reviewed, nursing notes reviewed and other (halfway staff members) Medical History Annual physical exam BPH with obstruction/lower urinary tract symptoms Depression Developmental delay, moderate Diabetes type 2, uncontrolled Dysphagia Gastroesophageal reflux disease Hypercholesteremia Hypertension Metabolic encephalopathy Occipital infarction Parkinson's disease Rash Schizophrenia Tubular adenoma of colon Type 2 diabetes mellitus with hyperglycemia Type 2 diabetes mellitus with hyperglycemia, without long-term current use of insulin Vitamin D deficiency Surgical History History of circumcision History of colonoscopy History of prostate surgery Family History Family History Father Type II diabetes mellitus Mother Type II diabetes mellitus Social History Social History Household Members: Other Housing: Other Housing Other:: CUSTODIAL Alcohol intake: never Patient Tobacco Use Status: Never used Tobacco e-Cigarette/Vaping Use: Never Used Second Hand Smoke Exposure: No Advance Directives: Yes Advance Directives on File: Yes Advance Directives Date on File: 07/11/21 service: No Current occupational status: disabled Physical Exam ED Vital Signs: Vital Signs - 24 hr 12/02/21 10:06 Temperature 98 F Pulse Rate 101 H Respiratory Rate 18 Blood Pressure 118/74 Pulse Oximetry 98 BMI result Body Mass Index 0.0 Const Other: Not answering questions appropriately, A&O x1(baseline) General: cooperative and alert HENMT Head: Yes normal to inspection and Yes atraumatic Ears: hearing grossly normal bilaterally General nose exam: Normal external nose present Face and sinus: Yes normal facial exam Eyes General: appearance normal, both eyes and all related structures EOM: EOMs intact bilaterally Neck Neck: Yes normal visual inspection and Yes no meningeal signs Resp Effort & Inspection: normal respiratory effort and no respiratory distress Auscultation: clear to auscultation bilaterally Cardio Rate: regular rate Heart sounds: S1 normal heart sound present and S2 normal heart sound present GI Inspection: Yes normal to inspection Palpation (GI): Soft to palpation, nontender, no guarding and not rigid Skin Rashes: no rashes Wounds: no wounds Neuro Other: Awake and alert (mentation at baseline) General: tone normal, moves all extremities, no meningeal signs, no focal motor deficits and CN's II-XI intact bilaterally Cranial nerves: Yes CN's II-XII intact bilaterally and Yes Bilaterally intact EOM present Speech: No Abnormal speech present Motor exam (neuro): 5/5 motor strength present throughout and Pronator motor function not present Romberg Test: Negative Extrem General: Yes normal to inspection Course Course Course Narrative: -1147--chronic leukopenia. H&H at baseline. BUN acute on chronically elevated to 27. CT head/brain wo con IMPRESSION: No acute intracranial pathology. >> plan to admit for further monitoring Medical Decision Making MDM Narrative Medical decision making narrative: 71-year-old male with a past medical history of depression, diabetes, developmental delay, GERD, HTN, HLD, metabolic encephalopathy, schizophrenia, diabetes, CVA, Parkinson's, BIBA from custodial for left-sided facial droop not ed at 9:30AM while patient was being bathed. Exam mildly tachycardic, NAD focal neuro deficits appreciable facial this time. Mental status at baseline. Concern for TIA. Low concern for CVA. Plan: EKG, labs, UA, head CT, anticipated admission Medical Records Medical records reviewed: Yes I reviewed the patient's medical records. Lab Data Lab results reviewed: Yes I reviewed the patient's lab results. Result diagrams: 12/02/21 11:10 12/02/21 11:10 Labs: Lab Results 12/02/21 12/02/21 12/02/21 Range/Units 11:10 11:10 11:11 WBC 4.5 L (4.8-10.8) X10*3/uL RBC 4.03 L (4.60-5.80) X10*6/uL Hgb 12.7 L (14.0-18.0) g/dl Hct 40.1 L (42.0-52.0) % MCV 99.5 H (80.0-98.0) fL MCH 31.5 (27.0-33.0) pg MCHC 31.7 (31.0-36.0) g/dl RDW 13.4 (11.0-16.0) % Plt Count 168 (160-400) X10*3/uL MPV 8.5 L (9.4-12.4) fL Immature Gran % (Auto) 1.8 H (0.0-0.4) % Neut % (Auto) 53.5 (45-73) % Lymph % (Auto) 26.9 (20-40) % [place] % (Auto) 14.3 H (2-11) % Eos % (Auto) 3.1 (0-4) % Baso % (Auto) 0.4 (0-2) % Lymph # (Auto) 1.2 (1.2-4.9) X10*3/uL [place] # (Auto) 0.7 (0.1-1.2) X10*3/uL Eos # (Auto) 0.1 (0.0-0.4) X10*3/uL Baso # (Auto) 0.0 (0.0-0.2) X10*3/uL Abs Immat Gran (auto) 0.08 H (0.00-0.03) X10*3/uL Absolute Neuts (auto) 2.4 (2.0-8.3) x10*3/uL Absolute Nucleated RBC 0.020 H (0.0-0.012) X10*3/uL Nucleated RBC % (auto) 0.4 H (0.0-0.2) /100WBC PT 12.6 (9.9-13.0) SEC INR 1.1 (0.9-1.1) Sodium 143 (135-145) mmol/L Potassium 4.1 (3.3-5.1) mmol/L Chloride 107 (96-108) mmol/L Carbon Dioxide 29 (22-29) mmol/L Anion Gap 11 L (12-20) BUN 27 H (9-16) mg/dL Creatinine 0.89 (0.5-1.4) mg/dL Estim Creat Clear Calc TNP Estimated GFR > 60 Random Glucose 124 H (60-115) mg/dL Calcium 9.6 (8.4-10.2) mg/dL Magnesium 2.0 (1.6-2.6) mg/dL Total Bilirubin 0.2 (0.0-1.0) mg/dL Direct Bilirubin < 0.2 (0.0-0.5) mg/dL AST 11 (5-37) U/L ALT 8 (0-40) U/L Alkaline Phosphatase 64 (39-117) U/L Total Protein 6.5 (6.5-8.0) g/dL Albumin 3.9 (3.5-5.0) g/dL COVID-19 (MICHELLE) (Negative) COVID-19 Clin Com 12/02/21 Range/Units 11:11 WBC (4.8-10.8) X10*3/uL RBC (4.60-5.80) X10*6/uL Hgb (14.0-18.0) g/dl Hct (42.0-52.0) % MCV (80.0-98.0) fL MCH (27.0-33.0) pg MCHC (31.0-36.0) g/dl RDW (11.0-16.0) % Plt Count (160-400) X10*3/uL MPV (9.4-12.4) fL Immature Gran % (Auto) (0.0-0.4) % Neut % (Auto) (45-73) % Lymph % (Auto) (20-40) % [place] % (Auto) (2-11) % Eos % (Auto) (0-4) % Baso % (Auto) (0-2) % Lymph # (Auto) (1.2-4.9) X10*3/uL [place] # (Auto) (0.1-1.2) X10*3/uL Eos # (Auto) (0.0-0.4) X10*3/uL Baso # (Auto) (0.0-0.2) X10*3/uL Abs Immat Gran (auto) (0.00-0.03) X10*3/uL Absolute Neuts (auto) (2.0-8.3) x10*3/uL Absolute Nucleated RBC (0.0-0.012) X10*3/uL Nucleated RBC % (auto) (0.0-0.2) /100WBC PT (9.9-13.0) SEC INR (0.9-1.1) Sodium (135-145) mmol/L Potassium (3.3-5.1) mmol/L Chloride (96-108) mmol/L Carbon Dioxide (22-29) mmol/L Anion Gap (12-20) BUN (9-16) mg/dL Creatinine (0.5-1.4) mg/dL Estim Creat Clear Calc Estimated GFR Random Glucose (60-115) mg/dL Calcium (8.4-10.2) mg/dL Magnesium (1.6-2.6) mg/dL Total Bilirubin (0.0-1.0) mg/dL Direct Bilirubin (0.0-0.5) mg/dL AST (5-37) U/L ALT (0-40) U/L Alkaline Phosphatase (39-117) U/L Total Protein (6.5-8.0) g/dL Albumin (3.5-5.0) g/dL COVID-19 (MICHELLE) Negative (Negative) COVID-19 Clin Com See Note Discharge Plan Discharge Clinical Impression: TIA (transient ischemic attack) Patient Disposition: Admitted As Inpatient Prescriptions: No Action aspirin [Adult Low Dose Aspirin] 81 mg tablet,delayed release (DR/EC) 81 mg PO DAILY 90 Days Qty: 90 3RF topiramate [Topamax] 50 mg tablet 50 mg PO BID 90 Days Qty: 180 2RF atorvastatin 20 mg tablet 20 mg PO BEDTIME Qty: 90 3RF (DME) Prodigy No Coding Strip See Rx Instructions .Route Qty: 100 6RF Rx Instructions: Test 3 times daily metformin 1,000 mg tablet 1,000 mg PO BID Qty: 180 3RF gabapentin 300 mg capsule 300 mg PO BEDTIME Qty: 90 3RF risperidone 1 mg tablet 1 mg PO BID Qty: 180 0RF carbidopa-levodopa 25-100 mg tablet 1.5 tab PO QID 90 Days Qty: 540 3RF melatonin 3 mg Tablet 3 mg PO BEDTIME 0RF sertraline 50 mg tablet 1 tab PO DAILY 0RF divalproex 125 mg capsule, delayed rel sprinkle 4 cap PO BID 0RF benztropine 1 mg tablet 0.5 mg PO BID 0RF mirtazapine 15 mg tablet,disintegrating 1 tab PO BEDTIME 0RF tamsulosin 0.4 mg capsule 0.8 mg PO BEDTIME 0RF Ankit Mcgraw U-100 Insulin 100 unit/mL (3 mL) insulin pen 10 unit subcut DAILY@1600 0RF lisinopril 20 mg tablet 20 mg PO DAILY 14 Days Qty: 14 0RF
[2021-12-02 11:20] LABS: Basophils Percent Auto 0.4 % (0-2); Eosinophils Absolute Auto 0.1 X10*3/uL (0.0-0.4); Eosinophils Percent Auto 3.1 % (0-4); Hematocrit 40.1 % (42.0-52.0); Hemoglobin 12.7 g/dl (14.0-18.0); Imm Gran Abs Auto 0.08 X10*3/uL (0.00-0.03); Imm Gran Pct Auto 1.8 % (0.0-0.4); Lymphocytes Absolute Auto 1.2 X10*3/uL (1.2-4.9); Lymphocytes Percent Auto 26.9 % (20-40); MANUAL DIFF FLAG NO; Mean Corpuscular HGB Conc 31.7 g/dl (31.0-36.0); Mean Corpuscular Hemoglobin 31.5 pg (27.0-33.0); Mean Corpuscular Volume 99.5 fL (80.0-98.0); Mean Platelet Volume 8.5 fL (9.4-12.4); Monocytes Absolute Auto 0.7 X10*3/uL (0.1-1.2); Monocytes Percent Auto 14.3 % (2-11); NRBC Pct Auto 0.4 /100WBC (0.0-0.2); Neutrophils Absolute Auto 2.4 x10*3/uL (2.0-8.3); Neutrophils Percent Auto 53.5 % (45-73); Platelet Count 168 X10*3/uL (160-400); Red Blood Count 4.03 X10*6/uL (4.60-5.80); Red Cell Distribution Width 13.4 % (11.0-16.0); White Blood Count 4.5 X10*3/uL (4.8-10.8)
[2021-12-02 11:26] LABS: INTERNATIONAL NORM RATIO 1.1 (0.9-1.1); Prothrombin Time 12.6 SEC (9.9-13.0)
[2021-12-02 11:39] LABS: COVID-19 Test Negative (Negative)
[2021-12-02 11:42] LABS: Alanine Aminotransferase 8 U/L (0-40); Albumin Level 3.9 g/dL (3.5-5.0); Alkaline Phosphatase 64 U/L (39-117); Anion Gap 11 (12-20); Aspartate Amino Transferase 11 U/L (5-37); Bilirubin Direct < 0.2 mg/dL (0.0-0.5); Bilirubin Total 0.2 mg/dL (0.0-1.0); Blood Urea Nitrogen 27 mg/dL (9-16); Calcium 9.6 mg/dL (8.4-10.2); Carbon Dioxide 29 mmol/L (22-29); Chloride 107 mmol/L (96-108); Estimated Glomerular Filt Rate > 60; Glucose Random 124 mg/dL (60-115); Potassium 4.1 mmol/L (3.3-5.1); Sodium 143 mmol/L (135-145); Total Protein 6.5 g/dL (6.5-8.0)
--- NOTE | 2021-12-02 12:15 | P.HPHOSP_ITS ---
History of Present Illness Date of Service: 12/02/21 Chief Complaint: left facial droop 71-year-old male sent in from custodial for left facial droop. Patient had also presented to the ED 3 days prior to presentation for similar symptoms that had been ongoing for 2 days at that time. [address] head at that time was negative and patient was discharged home. On day of presentation custodial staff noticed left eye drooping during bathing. Therefore, they called ambulance to bring patient to the ED. in ED, ED staff noted left facial droop including both lower eye and mouth. Repeat CT head was negative. By the time I came to see patient there is no noticeable droop. Patient's himself unable to give history. Review of Systems Review of Systems: Yes Unobtainable due to mental status PMFSH Medical History Annual physical exam BPH with obstruction/lower urinary tract symptoms Depression Developmental delay, moderate Diabetes type 2, uncontrolled Dysphagia Gastroesophageal reflux disease Hypercholesteremia Hypertension Metabolic encephalopathy Occipital infarction Parkinson's disease Rash Schizophrenia Tubular adenoma of colon Type 2 diabetes mellitus with hyperglycemia Type 2 diabetes mellitus with hyperglycemia, without long-term current use of insulin Vitamin D deficiency Family History Father Type II diabetes mellitus Mother Type II diabetes mellitus Surgical History History of circumcision History of colonoscopy History of prostate surgery Social History Household Members: Other Housing: Other Housing Other:: PENITENTIARY Alcohol intake: never Patient Tobacco Use Status: Never used Tobacco e-Cigarette/Vaping Use: Never Used Second Hand Smoke Exposure: No Advance Directives: Yes Advance Directives on File: Yes Advance Directives Date on File: 07/11/21 service: No Current occupational status: disabled Meds Allergies Allergy/AdvReac Type Severity Reaction Status Date / Time perfume Allergy Intermediate ITCHING Verified 12/02/21 10:15 Active Medications: Current Medications Acetaminophen (Acetaminophen 325 Mg Tablet) 650 mg PO Q6H PRN PRN Reason: Pain, Mild (Pain Scale 1-3) Aspirin (Aspirin Enteric Coated 81 Mg Tablet.) 81 mg PO DAILY MIRIAN Atorvastatin Calcium (Atorvastatin Calcium 20 Mg Tablet) 20 mg PO BEDTIME [facility] Benztropine Mesylate (Benztropine Mesylate 0.5 Mg Tablet) 0.5 mg PO BID [facility] Carbidopa/Levodopa (Carbidopa/Levodopa 25/100 Tablet) 1.5 tab PO QID [facility] Dextrose (Dextrose 50 % 25 Gm/50 Ml Vial) 25 gm IVPUSH Q15M PRN; Protocol PRN Reason: per Hypoglycemia Standing Ord. Divalproex Sodium (Divalproex Sodium Sprinkles 125 Mg Cap.) 500 mg PO BID [facility] Enoxaparin Sodium (Enoxaparin Sodium 40 Mg/0.4 Ml Syringe) 40 mg SUBCUT DAILY [facility] Gabapentin (Gabapentin 300 Mg Capsule) 300 mg PO BEDTIME [facility] Glucose (Glucose Gel 15 Gm Gel..Gram.) 15 gm PO Q15M PRN; Protocol PRN Reason: per Hypoglycemia Standing Ord. Sodium Chloride (Ns) 1,000 mls @ 999 mls/hr IV .Q1H1M [facility] Stop: 12/02/21 13:00 Insulin Glargine (Insulin Glargine,Hum.Rec.Anlog 100 Unit/Ml 10 Ml Vial) 10 unit SUBCUT DAILY@1600 [facility] Insulin Human Lispro (Insulin Lispro 100 Unit/Ml 3 Ml Vial) 0 unit SUBCUT QIDACHS [facility]; Protocol Lisinopril (Lisinopril 20 Mg Tablet) 20 mg PO DAILY [facility]; Protocol Melatonin (Melatonin 3 Mg Tablet) 3 mg PO BEDTIME [facility] Mirtazapine (Mirtazapine 15 Mg Tablet) 15 mg PO BEDTIME [facility] Pharmacy Consult (Consult Rx Perform Med Rec) 1 each MISCELLANE ONCE PRN PRN Reason: Consult order Risperidone (Risperidone 1 Mg Tablet) 1 mg PO BID [facility] Sertraline HCl (Sertraline Hcl 50 Mg Tablet) 50 mg PO DAILY [facility] Tamsulosin HCl (Tamsulosin Hcl 0.4 Mg Capsule) 0.8 mg PO BEDTIME [facility] Topiramate (Topiramate 25 Mg Tablet) 50 mg PO BID [facility] Home Medications Medication Instructions Recorded Confirmed Last Taken Type melatonin 3 mg tablet 3 mg PO BEDTIME 08/09/21 12/02/21 11/28/21 History benztropine 1 mg tablet 0.5 mg PO BID 11/29/21 12/02/21 11/29/21 History divalproex 125 mg capsule,delayed 4 cap PO BID 11/29/21 12/02/21 11/29/21 History release sprinkle insulin glargine 100 unit/mL (3 10 unit SUBCUT DAILY@1600 11/29/21 12/02/21 11/28/21 History mL) subcutaneous pen (Basaglar KwikPen U-100 Insulin) mirtazapine 15 mg disintegrating 1 tab PO BEDTIME 11/29/21 12/02/21 11/28/21 History tablet tamsulosin 0.4 mg capsule 0.8 mg PO BEDTIME 11/29/21 12/02/21 11/28/21 History sertraline 50 mg tablet 1 tab PO DAILY 12/02/21 12/02/21 Unknown History Physical Exam Vital Signs and Narrative: Vital Signs: Last Vital Signs Temp 98 F 12/02/21 10:06 Pulse 101 H 12/02/21 10:06 Resp 18 12/02/21 10:06 BP 118/74 12/02/21 10:06 Pulse Ox 98 12/02/21 10:06 BMI result Body Mass Index 0.0 General: no acute distress HEENT: atraumatic Neck: normal to visual inspection CVS: S1, S2, RRR Resp: CTA bilateral Chest: non tender GI: soft, non tender, non distended : no CVA tenderness Skin: no rashes Extremities: no edema Neuro: Oriented X2, grossly intact Psych: cooperative Results Labs CBC and Chem 7: 12/02/21 11:10 12/02/21 11:10 Labs: Laboratory Results - last 24 hr 12/02/21 12/02/21 12/02/21 11:10 11:10 11:11 MCV 99.5 H MCH 31.5 MCHC 31.7 RDW 13.4 Plt Count 168 MPV 8.5 L Immature Gran % (Auto) 1.8 H Neut % (Auto) 53.5 Lymph % (Auto) 26.9 [place] % (Auto) 14.3 H Eos % (Auto) 3.1 Baso % (Auto) 0.4 Lymph # (Auto) 1.2 [place] # (Auto) 0.7 Eos # (Auto) 0.1 Baso # (Auto) 0.0 Abs Immat Gran (auto) 0.08 H Absolute Neuts (auto) 2.4 Absolute Nucleated RBC 0.020 H Nucleated RBC % (auto) 0.4 H PT 12.6 INR 1.1 Anion Gap 11 L Estim Creat Clear Calc TNP Estimated GFR > 60 Random Glucose 124 H Calcium 9.6 Magnesium 2.0 Total Bilirubin 0.2 Direct Bilirubin < 0.2 AST 11 ALT 8 Alkaline Phosphatase 64 Total Protein 6.5 Albumin 3.9 COVID-19 (MICHELLE) COVID-19 Clin Com 12/02/21 11:11 MCV MCH MCHC RDW Plt Count MPV Immature Gran % (Auto) Neut % (Auto) Lymph % (Auto) [place] % (Auto) Eos % (Auto) Baso % (Auto) Lymph # (Auto) [place] # (Auto) Eos # (Auto) Baso # (Auto) Abs Immat Gran (auto) Absolute Neuts (auto) Absolute Nucleated RBC Nucleated RBC % (auto) PT INR Anion Gap Estim Creat Clear Calc Estimated GFR Random Glucose Calcium Magnesium Total Bilirubin Direct Bilirubin AST ALT Alkaline Phosphatase Total Protein Albumin COVID-19 (MICHELLE) Negative COVID-19 Clin Com See Note Imaging Radiologist's Impressions: Impressions Head CT 12/02/21 11:05 IMPRESSION: No acute intracranial pathology. Assessment and Plan (1) Type 2 diabetes mellitus with hyperglycemia: Status: Acute Plan 71M presented with left facial droop left facial droop rule out tia observe on tele check mri continue asa, statin neuro eval parkinsons sinemet schizophrenia risperdal, depakote htn lisinopril bph flomax DM basal bolus insulin, monitor poc dvt prophylaxis- lovenox full code Quality Stroke Does the patient have a stroke diagnosis?: No VTE Prior VTE?: No VTE Risk Level:: Medical - moderate - high VTE Device Contraindication: Treatment Not Indicated VTE Drug Contraindication: N/A - Med Ordered
[2021-12-02] MEDS: 0.9 % Sodium Chloride 1,000 ML 999 ML IV (12:52)
[2021-12-02 12:55] VITALS: BP 118/72; PULSE 77; RESP 17; TEMP 36.2; O2SAT 97
--- NOTE | 2021-12-02 13:11 | PC.NURSE ---
sorting supervisor ( eri) noticd that pt had l eye droop at 0930 this am. pt's last known well time was last night.
[2021-12-02 14:34] VITALS: BP 155/83; PULSE 76; RESP 12; TEMP 36.6; O2SAT 100
[2021-12-02] MEDS: LORazepam 2 MG/ML VIAL 1 MG IVPUSH (15:16)
--- NOTE | 2021-12-02 17:14 | PC.NURSE ---
accompanied pt to mri for cardiac monitoring
[2021-12-02] MEDS: Carbidopa/Levodopa 25/100 TABLET 1.5 TAB PO ×3 (17:27→23:49)
[2021-12-02] MEDS: Insulin Glargine,Hum.rec.anlog 100 UNIT/ML 10 ML VIAL 10 UNIT SUBCUT (17:28)
[2021-12-02] MEDS: 0.9 % Sodium Chloride Flush 3 ML SYRINGE IVFLUSH ×2 (17:28→23:52)
[2021-12-02 17:42] LABS: Glucose, Whole Blood 89 mg/dL (60-115)
[2021-12-02] MEDS: Mirtazapine 15 MG TABLET PO (20:30)
[2021-12-02] MEDS: Melatonin 3 MG TABLET PO (20:30)
[2021-12-02] MEDS: Divalproex Sodium Sprinkles 125 MG CAP.DR.SPR 500 MG PO (20:30)
[2021-12-02] MEDS: Topiramate 25 MG TABLET 50 MG PO (20:31)
[2021-12-02] MEDS: Gabapentin 300 MG CAPSULE PO (20:31)
[2021-12-02] MEDS: Atorvastatin Calcium 20 MG TABLET PO (20:31)
[2021-12-02] MEDS: risperiDONE 1 MG TABLET PO (20:31)
[2021-12-02] MEDS: Tamsulosin HCL 0.4 MG CAPSULE 0.8 MG PO (20:31)
[2021-12-02] MEDS: Benztropine Mesylate 0.5 MG TABLET PO (20:35)
[2021-12-02 20:41] LABS: Glucose, Whole Blood 142 mg/dL (60-115)
[2021-12-02 20:57] VITALS: BP 140/77; PULSE 70; RESP 15; TEMP 36.8; O2SAT 99
[2021-12-03 00:40] VITALS: BP 140/87; PULSE 67; RESP 15; TEMP 36.4; O2SAT 98
[2021-12-03 00:49] LABS: Appearance Urine HAZY; Color Urine YELLOW; Glucose Urine UA NEG (NEG); Leukocyte Esterase Urine NEG (NEG); Nitrite Urine NEG (NEG); PH 7.5 (5.0-8.0); Specific Gravity - Urine 1.015 (1.005-1.025); Urine Blood NEG (NEG); Urine Ketones NEG (NEG); Urine Protein NEG (NEG-TRACE)
[2021-12-03 04:26] VITALS: BP 127/76; PULSE 68; RESP 14; O2SAT 98
[2021-12-03 06:33] VITALS: BP 138/87; PULSE 69; RESP 17; O2SAT 100
[2021-12-03 06:58] LABS: Glucose, Whole Blood 71 mg/dL (60-115)
[2021-12-03 07:05] LABS: Hemoglobin 12.3 g/dl (14.0-18.0); Mean Corpuscular HGB Conc 31.5 g/dl (31.0-36.0); Mean Corpuscular Volume 98.2 fL (80.0-98.0); Mean Platelet Volume 8.7 fL (9.4-12.4); NRBC Pct Auto 0.4 /100WBC (0.0-0.2); Platelet Count 143 X10*3/uL (160-400); Red Blood Count 3.97 X10*6/uL (4.60-5.80); Red Cell Distribution Width 13.2 % (11.0-16.0); White Blood Count 4.9 X10*3/uL (4.8-10.8)
[2021-12-03 07:10] LABS: Anion Gap 11 (12-20); Blood Urea Nitrogen 17 mg/dL (9-16); Carbon Dioxide 27 mmol/L (22-29); Chloride 106 mmol/L (96-108); Cholesterol 117 mg/dL; Estimated Glomerular Filt Rate > 60; Glucose Fasting 85 mg/dL (60-99); HDL Cholesterol 31 mg/dL; LDL Cholesterol Calculated 64 mg/dl; Potassium 4.1 mmol/L (3.3-5.1); Sodium 140 mmol/L (135-145); Triglycerides 113 mg/dL
[2021-12-03 07:18] LABS: Calcium 8.9 mg/dL (8.4-10.2)
--- NOTE | 2021-12-03 07:44 | PC.NURSE ---
report given to elham costa
[2021-12-03 08:17] VITALS: BP 138/86; PULSE 86; RESP 20; O2SAT 99
--- NOTE | 2021-12-03 08:20 | PC.NURSE ---
Pt is Alert, at baseline mentation per service workerJanes. Pt is verbal, primarily taiwanese speaking, does know his name, but not date or location. Pt is NSR on monitor, skin intact, +PERRLA, neuros grossly intact at this time with no deficits noted. Call fregoso within reach, service worker at bedside. Will continue to monitor.
[2021-12-03] MEDS: Carbidopa/Levodopa 25/100 TABLET 1.5 TAB PO ×2 (09:08→13:45)
[2021-12-03] MEDS: Enoxaparin Sodium 40 MG/0.4 ML SYRINGE SUBCUT (09:08)
[2021-12-03] MEDS: 0.9 % Sodium Chloride Flush 3 ML SYRINGE IVFLUSH (09:08)
[2021-12-03] MEDS: lisinopriL 20 MG TABLET PO (09:09)
[2021-12-03] MEDS: Sertraline HCL 50 MG TABLET PO (09:09)
[2021-12-03] MEDS: Aspirin Enteric Coated 81 MG TABLET.DR PO (09:09)
[2021-12-03] MEDS: Topiramate 25 MG TABLET 50 MG PO (09:09)
[2021-12-03] MEDS: Divalproex Sodium Sprinkles 125 MG CAP.DR.SPR 500 MG PO (09:09)
[2021-12-03] MEDS: Benztropine Mesylate 0.5 MG TABLET PO (09:09)
[2021-12-03] MEDS: risperiDONE 1 MG TABLET PO (09:09)
--- NOTE | 2021-12-03 10:41 | P.CNNE_ITS ---
History of Present Illness Data of Consult Service Date: 12/03/21 Primary Care Provider: Claire Bender MD [facility] Reason for consult: Facial droop 71 years old man with underlying history of dementia, schizophrenia, resident of a senior care was brought to hospital with left-sided facial droop. Apparently this was noted few days prior to hospitalization. On that day, he had left- sided facial flatness including droopiness of eyelid for about an hour. There was no arm or leg weakness at that time or any confusion. Review of Systems Review of Systems: No recent headache trauma or cold or flu-like illness PMFSH Past Medical History Medical History Annual physical exam BPH with obstruction/lower urinary tract symptoms Depression Developmental delay, moderate Diabetes type 2, uncontrolled Dysphagia Gastroesophageal reflux disease Hypercholesteremia Hypertension Metabolic encephalopathy Occipital infarction Parkinson's disease Rash Schizophrenia Tubular adenoma of colon Type 2 diabetes mellitus with hyperglycemia Type 2 diabetes mellitus with hyperglycemia, without long-term current use of insulin Vitamin D deficiency Family History Family History Father Type II diabetes mellitus Mother Type II diabetes mellitus Surgical History Surgical History History of circumcision History of colonoscopy History of prostate surgery Social History Social History Household Members: Other Housing: Other Housing Other:: [place] Alcohol intake: never Patient Tobacco Use Status: Never used Tobacco e-Cigarette/Vaping Use: Never Used Second Hand Smoke Exposure: No Advance Directives: Yes Advance Directives on File: Yes Advance Directives Date on File: 07/11/21 service: No Current occupational status: disabled Meds Allergies Allergy/AdvReac Type Severity Reaction Status Date / Time perfume Allergy Intermediate ITCHING Verified 12/02/21 10:15 Active Medications: Current Medications Acetaminophen (Acetaminophen 325 Mg Tablet) 650 mg PO Q6H PRN PRN Reason: Pain, Mild (Pain Scale 1-3) Aspirin (Aspirin Enteric Coated 81 Mg Tablet.) 81 mg PO DAILY [facility] Last Admin: 12/03/21 09:09 Dose: 81 mg Documented by: Atorvastatin Calcium (Atorvastatin Calcium 20 Mg Tablet) 20 mg PO BEDTIME [facility] Last Admin: 12/02/21 20:31 Dose: 20 mg Documented by: Benztropine Mesylate (Benztropine Mesylate 0.5 Mg Tablet) 0.5 mg PO BID [facility] Last Admin: 12/03/21 09:09 Dose: 0.5 mg Documented by: Carbidopa/Levodopa (Carbidopa/Levodopa 25/100 Tablet) 1.5 tab PO QID [facility] Last Admin: 12/03/21 09:08 Dose: 1.5 tab Documented by: Dextrose (Dextrose 50 % 25 Gm/50 Ml Vial) 25 gm IVPUSH Q15M PRN; Protocol PRN Reason: per Hypoglycemia Standing Ord. Divalproex Sodium (Divalproex Sodium Sprinkles 125 Mg ) 500 mg PO BID [facility] Last Admin: 12/03/21 09:09 Dose: 500 mg Documented by: Enoxaparin Sodium (Enoxaparin Sodium 40 Mg/0.4 Ml Syringe) 40 mg SUBCUT DAILY [facility] Last Admin: 12/03/21 09:08 Dose: 40 mg Documented by: Gabapentin (Gabapentin 300 Mg Capsule) 300 mg PO BEDTIME [facility] Last Admin: 12/02/21 20:31 Dose: 300 mg Documented by: Glucose (Glucose Gel 15 Gm Gel..Gram.) 15 gm PO Q15M PRN; Protocol PRN Reason: per Hypoglycemia Standing Ord. Insulin Glargine (Insulin Glargine,Hum.Rec.Anlog 100 Unit/Ml 10 Ml Vial) 10 unit SUBCUT DAILY@1600 [facility] Last Admin: 12/02/21 17:28 Dose: 10 unit Documented by: Insulin Human Lispro (Insulin Lispro 100 Unit/Ml 3 Ml Vial) 0 unit SUBCUT QIDACHS [facility]; Protocol Last Admin: 12/03/21 07:10 Dose: Not Given Documented by: Lisinopril (Lisinopril 20 Mg Tablet) 20 mg PO DAILY [facility]; Protocol Last Admin: 12/03/21 09:09 Dose: 20 mg Documented by: Melatonin (Melatonin 3 Mg Tablet) 3 mg PO BEDTIME [facility] Last Admin: 12/02/21 20:30 Dose: 3 mg Documented by: Mirtazapine (Mirtazapine 15 Mg Tablet) 15 mg PO BEDTIME [facility] Last Admin: 12/02/21 20:30 Dose: 15 mg Documented by: Pharmacy Consult (Consult Rx Perform Med Rec) 1 each MISCELLANE ONCE PRN PRN Reason: Consult order Risperidone (Risperidone 1 Mg Tablet) 1 mg PO BID [facility] Last Admin: 12/03/21 09:09 Dose: 1 mg Documented by: Sertraline HCl (Sertraline Hcl 50 Mg Tablet) 50 mg PO DAILY [facility] Last Admin: 12/03/21 09:09 Dose: 50 mg Documented by: Sodium Chloride (0.9 % Sodium Chloride Flush 3 Ml Syringe) 3 ml IVFLUSH QSHIFT [facility] Last Admin: 12/03/21 09:08 Dose: 3 ml Documented by: Tamsulosin HCl (Tamsulosin Hcl 0.4 Mg Capsule) 0.8 mg PO BEDTIME [facility] Last Admin: 12/02/21 20:31 Dose: 0.8 mg Documented by: Topiramate (Topiramate 25 Mg Tablet) 50 mg PO BID [facility] Last Admin: 12/03/21 09:09 Dose: 50 mg Documented by: Home Medications Medication Instructions Recorded Confirmed Last Taken Type melatonin 3 mg tablet 3 mg PO BEDTIME 08/09/21 12/02/21 11/28/21 History benztropine 1 mg tablet 0.5 mg PO BID 11/29/21 12/02/21 11/29/21 History divalproex 125 mg capsule,delayed 4 cap PO BID 11/29/21 12/02/21 11/29/21 History release sprinkle insulin glargine 100 unit/mL (3 10 unit SUBCUT DAILY@1600 11/29/21 12/02/21 11/28/21 History mL) subcutaneous pen (Davidaglar Mariluz U-100 Insulin) mirtazapine 15 mg disintegrating 1 tab PO BEDTIME 11/29/21 12/02/21 11/28/21 History tablet tamsulosin 0.4 mg capsule 0.8 mg PO BEDTIME 11/29/21 12/02/21 11/28/21 History sertraline 50 mg tablet 1 tab PO DAILY 12/02/21 12/02/21 Unknown History Physical Exam Vital Signs: Vital Signs: Last Vital Signs Temp 97.5 F 12/03/21 00:40 Pulse 86 12/03/21 08:17 Resp 20 12/03/21 08:17 BP 138/86 12/03/21 08:17 Pulse Ox 99 12/03/21 08:17 BMI result Body Mass Index 0.0 Neuro: Other: Alert and awake smiling looking around made eye contact followed simple commands. He did not speaking L[place] and into was performed with the help of an power system electrical engineer. There was no significant facial weakness or ptosis. There was no obvious focal arm or leg weakness. Plantars were flexors. Deep tendon reflexes were trace to absent. Results Labs CBC & Chem 7: 12/03/21 06:42 12/03/21 06:42 Labs: Short CBC 12/02/21 12/03/21 Range/Units 11:10 06:42 WBC 4.5 L 4.9 (4.8-10.8) X10*3/uL Hgb 12.7 L 12.3 L (14.0-18.0) g/dl Hct 40.1 L 39.0 L (42.0-52.0) % Plt Count 168 143 L (160-400) X10*3/uL BMP 12/02/21 12/03/21 11:10 06:42 Sodium 143 140 Potassium 4.1 4.1 Chloride 107 106 Carbon Dioxide 29 27 BUN 27 H 17 H Creatinine 0.89 0.74 Calcium 9.6 8.9 D Liver Function 12/02/21 Range/Units 11:10 Total Bilirubin 0.2 (0.0-1.0) mg/dL Direct Bilirubin < 0.2 (0.0-0.5) mg/dL AST 11 (5-37) U/L ALT 8 (0-40) U/L Alkaline Phosphatase 64 (39-117) U/L Albumin 3.9 (3.5-5.0) g/dL Urine 12/03/21 Range/Units 00:44 Urine Color YELLOW Urine Appearance HAZY Urine pH 7.5 (5.0-8.0) Ur Specific [place] 1.015 (1.005-1.025) Urine Protein NEG (NEG-TRACE) MG/DL Urine Glucose (UA) NEG (NEG) MG/DL Noncontrast MRI of brain revealed moderate cerebral atrophy but no significant vascular disease or any acute lesion. Assessment and Plan (1) TIA (transient ischemic attack): Status: Acute 71 years old man with underlying history of dementia and psychotic disorder presented with left-sided facial weakness lasting for about an hour. At this time examination was nonfocal an MRI brain did not reveal any significant abnormality. This type of symptoms could could result from transient ischemic attack related to microvascular disease. Other considerations could be migraine but there was no such history. Seizure disorder was also possibility. For now my recommendation is to continue anti-platelet agent blood pressure control and statin. If symptoms recur, an EEG might be considered. This is because of his underlying mental disorder due to which it might be difficult to figure out mild alteration of consciousness or confusion associated with such symptoms. Procedures Date of Service Date of Service: 12/03/21
--- NOTE | 2021-12-03 10:58 | P.DS_ITS ---
DS: Providers Provider Date of Service: 12/03/21 Date of admission: 12/02/21 12:13 Primary care physician: Claire Bender MD Consults: 12/02/21 12:11 Consult to Neurology Routine Consulting Provider: [facility] Reason for consultation: left facial droop DS: Diagnosis Discharge Diagnosis (1) TIA (transient ischemic attack): Status: Acute DS: Summary Hospital Course Hospital Course: From initial HPI: Chief Complaint:? left facial droop ?71-year-old male sent in from [facility] for left facial droop.? Patient had also presented to the ED 3 days prior to presentation for similar symptoms that had been ongoing for 2 days at that time.? CT head at that time was negative and patient was discharged home.? On day of presentation prison staff noticed left eye drooping during bathing.? Therefore, they called ambulance to bring patient to the ED.? in ED, ED staff noted left facial droop including both lower eye and mouth.? Repeat CT head was negative.? By the time I came to see patient there is no noticeable droop.? Patient's himself unable to give history. Hospital course: Patient was observed for left facial droop, did not recur, he underwent MRI which was unremarkable. He was seen by Neurology who recommended continue aspirin statin, diagnosis is either small TIA that did not show up on MRI versus migraine versus focal seizure. If recurs would consider EEG. Patient will be discharged home. Time Spent with Patient Time attestation: Total time spent providing and/or coordinating discharge services: Discharge coordination time: Greater than 30 minutes Quality: Stroke Does the patient have a stroke diagnosis?: Yes Reason for No Anti-thrombotic at DC: N/A - Med Ordered Reason for No Anticoagulant at DC: Drug treatment not indicated Reason Not Initiating IV-Tpa: Drug treatment not indicated Reason for No Anti-thrombotic by Day Two: N/A - Med Ordered Reason for No Statin at DC: N/A - Med Ordered Physical Exam Vital Signs: Vital Signs: Last Vital Signs Temp 97.5 F 12/03/21 00:40 Pulse 86 12/03/21 08:17 Resp 20 12/03/21 08:17 BP 138/86 12/03/21 08:17 Pulse Ox 99 12/03/21 08:17 BMI result Body Mass Index 0.0 General: no acute distress Resp: CTA bilateral, no accessory muscles used CVS: S1,S2,RRR GI: soft, non tender, non distended Neuro: motor grossly intact, alert Psych: impaired insight DS: Data Data Completed and Pending Labs on day of discharge: Laboratory Results - last 24 hr 12/02/21 12/02/21 12/02/21 11:10 11:10 11:11 WBC 4.5 L RBC 4.03 L Hgb 12.7 L Hct 40.1 L MCV 99.5 H MCH 31.5 MCHC 31.7 RDW 13.4 Plt Count 168 MPV 8.5 L Immature Gran % (Auto) 1.8 H Neut % (Auto) 53.5 Lymph % (Auto) 26.9 [place] % (Auto) 14.3 H Eos % (Auto) 3.1 Baso % (Auto) 0.4 Lymph # (Auto) 1.2 [place] # (Auto) 0.7 Eos # (Auto) 0.1 Baso # (Auto) 0.0 Abs Immat Gran (auto) 0.08 H Absolute Neuts (auto) 2.4 Absolute Nucleated RBC 0.020 H Nucleated RBC % (auto) 0.4 H PT 12.6 INR 1.1 Sodium 143 Potassium 4.1 Chloride 107 Carbon Dioxide 29 Anion Gap 11 L BUN 27 H Creatinine 0.89 Estim Creat Clear Calc TNP Estimated GFR > 60 POC Glucose Random Glucose 124 H Fasting Glucose Calcium 9.6 Magnesium 2.0 Total Bilirubin 0.2 Direct Bilirubin < 0.2 AST 11 ALT 8 Alkaline Phosphatase 64 Total Protein 6.5 Albumin 3.9 Triglycerides Cholesterol LDL Cholesterol, Calc HDL Cholesterol Urine Color Urine Appearance Urine pH Ur Specific [place] Urine Protein Urine Glucose (UA) Urine Ketones Urine Blood Urine Nitrite Ur Leukocyte Esterase COVID-19 (MICHELLE) COVID-19 Clin Com 12/02/21 12/02/21 12/02/21 11:11 17:35 20:37 WBC RBC Hgb Hct MCV MCH MCHC RDW Plt Count MPV Immature Gran % (Auto) Neut % (Auto) Lymph % (Auto) [place] % (Auto) Eos % (Auto) Baso % (Auto) Lymph # (Auto) [place] # (Auto) Eos # (Auto) Baso # (Auto) Abs Immat Gran (auto) Absolute Neuts (auto) Absolute Nucleated RBC Nucleated RBC % (auto) PT INR Sodium Potassium Chloride Carbon Dioxide Anion Gap BUN Creatinine Estim Creat Clear Calc Estimated GFR POC Glucose 89 142 H Random Glucose Fasting Glucose Calcium Magnesium Total Bilirubin Direct Bilirubin AST ALT Alkaline Phosphatase Total Protein Albumin Triglycerides Cholesterol LDL Cholesterol, Calc HDL Cholesterol Urine Color Urine Appearance Urine pH Ur Specific [place] Urine Protein Urine Glucose (UA) Urine Ketones Urine Blood Urine Nitrite Ur Leukocyte Esterase COVID-19 (MICHELLE) Negative COVID-19 Clin Com See Note 12/03/21 12/03/21 12/03/21 00:44 06:42 06:42 WBC 4.9 RBC 3.97 L Hgb 12.3 L Hct 39.0 L MCV 98.2 H MCH 31.0 MCHC 31.5 RDW 13.2 Plt Count 143 L MPV 8.7 L Immature Gran % (Auto) Neut % (Auto) Lymph % (Auto) [place] % (Auto) Eos % (Auto) Baso % (Auto) Lymph # (Auto) [place] # (Auto) Eos # (Auto) Baso # (Auto) Abs Immat Gran (auto) Absolute Neuts (auto) Absolute Nucleated RBC 0.020 H Nucleated RBC % (auto) 0.4 H PT INR Sodium 140 Potassium 4.1 Chloride 106 Carbon Dioxide 27 Anion Gap 11 L BUN 17 H Creatinine 0.74 Estim Creat Clear Calc TNP Estimated GFR > 60 POC Glucose Random Glucose Fasting Glucose 85 Calcium 8.9 D Magnesium Total Bilirubin Direct Bilirubin AST ALT Alkaline Phosphatase Total Protein Albumin Triglycerides 113 Cholesterol 117 LDL Cholesterol, Calc 64 HDL Cholesterol 31 Urine Color YELLOW Urine Appearance HAZY Urine pH 7.5 Ur Specific [place] 1.015 Urine Protein NEG Urine Glucose (UA) NEG Urine Ketones NEG Urine Blood NEG Urine Nitrite NEG Ur Leukocyte Esterase NEG COVID-19 (MICHELLE) COVID-19 Clin Com 12/03/21 06:55 WBC RBC Hgb Hct MCV MCH MCHC RDW Plt Count MPV Immature Gran % (Auto) Neut % (Auto) Lymph % (Auto) [place] % (Auto) Eos % (Auto) Baso % (Auto) Lymph # (Auto) [place] # (Auto) Eos # (Auto) Baso # (Auto) Abs Immat Gran (auto) Absolute Neuts (auto) Absolute Nucleated RBC Nucleated RBC % (auto) PT INR Sodium Potassium Chloride Carbon Dioxide Anion Gap BUN Creatinine Estim Creat Clear Calc Estimated GFR POC Glucose 71 Random Glucose Fasting Glucose Calcium Magnesium Total Bilirubin Direct Bilirubin AST ALT Alkaline Phosphatase Total Protein Albumin Triglycerides Cholesterol LDL Cholesterol, Calc HDL Cholesterol Urine Color Urine Appearance Urine pH Ur Specific [place] Urine Protein Urine Glucose (UA) Urine Ketones Urine Blood Urine Nitrite Ur Leukocyte Esterase COVID-19 (MICHELLE) COVID-19 Clin Com Discharge Plan Discharge Patient Disposition: Home, Self-Care Discharge Diagnosis: facial droop Referrals: Po,Claire Christianson MD [Primary Care Provider] - 1 Week Discharge Medications: Continued aspirin [Adult Low Dose Aspirin] 81 mg tablet,delayed release (DR/EC) 81 mg PO DAILY 90 Days Qty: 90 3RF topiramate [Topamax] 50 mg tablet 50 mg PO BID 90 Days Qty: 180 2RF atorvastatin 20 mg tablet 20 mg PO BEDTIME Qty: 90 3RF (DME) Prodigy No Coding Strip See Rx Instructions .Route Qty: 100 6RF Rx Instructions: Test 3 times daily metformin 1,000 mg tablet 1,000 mg PO BID Qty: 180 3RF gabapentin 300 mg capsule 300 mg PO BEDTIME Qty: 90 3RF risperidone 1 mg tablet 1 mg PO BID Qty: 180 0RF carbidopa-levodopa 25-100 mg tablet 1.5 tab PO QID 90 Days Qty: 540 3RF melatonin 3 mg Tablet 3 mg PO BEDTIME 0RF sertraline 50 mg tablet 1 tab PO DAILY 0RF divalproex 125 mg capsule, delayed rel sprinkle 4 cap PO BID 0RF benztropine 1 mg tablet 0.5 mg PO BID 0RF mirtazapine 15 mg tablet,disintegrating 1 tab PO BEDTIME 0RF tamsulosin 0.4 mg capsule 0.8 mg PO BEDTIME 0RF Basaglar KwikPen U-100 Insulin 100 unit/mL (3 mL) insulin pen 10 unit subcut DAILY@1600 0RF lisinopril 20 mg tablet 20 mg PO DAILY 14 Days Qty: 14 0RF Discharge Orders: Discharge Order (Routine); Ordered 12/03/21 Ordered By: Lewis Gilmore Diet: advance to usual diet Activity on Discharge: As tolerated Stand Alone Forms: Patient Portal Discharge page Care Plan Goals: recovery Health Concerns: facial droop Plan of Treatment: continue asa, statin, if recurs consider eeg Assessment: see above
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
[2021-12-03 14:51] LABS: Glucose, Whole Blood 133 mg/dL (60-115)
== END 2021-12-03 14:46 | disposition home or self-care (01) ==
LOC: HO.ED 11:54 → HO.EDOVER 12:42
PROVIDERS: Physician Assistant; Admitting Provider Internal Medicine; Emergency Provider Emergency Medicine; PCP Internal Medicine; Visit Provider Internal Medicine
DX: E11.65 Type 2 diabetes mellitus with hyperglycemia (principal); R29.810 Facial weakness; G20 Parkinson's disease; F02.81 Dementia in other diseases classified elsewhere, unspecified severity, with behavioral disturbance; F20.9 Schizophrenia, unspecified; R62.59 Other lack of expected normal physiological development in childhood; G93.41 Metabolic encephalopathy; K21.9 Gastro-esophageal reflux disease without esophagitis; I63.81 Other cerebral infarction due to occlusion or stenosis of small artery; I10 Essential (primary) hypertension; E78.00 Pure hypercholesterolemia, unspecified; E55.9 Vitamin D deficiency, unspecified; N40.1 Benign prostatic hyperplasia with lower urinary tract symptoms; N13.8 Other obstructive and reflux uropathy; I73.9 Peripheral vascular disease, unspecified; J30.89 Other allergic rhinitis; Z20.822 Contact with and (suspected) exposure to COVID-19; Z83.3 Family history of diabetes mellitus; Z79.4 Long term (current) use of insulin; Z79.899 Other long term (current) drug therapy
CPT/HCPCS: 36415; 70450; 70551; 71045; 74018; 80048; 80061; 80076; 81003; 82947; 83735; 85025; 85027; 85610; 87635; 93005; 96361; 96374; 96375; 99219; 99285; J1650; J2060

== ENCOUNTER 2021-12-06 11:10 | Outpatient (REF) | payer MEDICARE, MEDICAID, SELFPAY ==
[2021-12-06 13:40] LABS: MANUAL DIFF FLAG NO
[2021-12-06 13:47] LABS: Basophils Percent Auto 0.3 % (0-2); Eosinophils Absolute Auto 0.2 X10*3/uL (0.0-0.4); Eosinophils Percent Auto 2.8 % (0-4); Hematocrit 41.3 % (42.0-52.0); Hemoglobin 12.8 g/dl (14.0-18.0); Imm Gran Abs Auto 0.06 X10*3/uL (0.00-0.03); Immature Retic Fraction 24.7 % (2.3-13.4); Lymphocytes Absolute Auto 1.7 X10*3/uL (1.2-4.9); Lymphocytes Percent Auto 29.1 % (20-40); Mean Corpuscular Hemoglobin 30.6 pg (27.0-33.0); Mean Corpuscular Volume 98.8 fL (80.0-98.0); Mean Platelet Volume 9.1 fL (9.4-12.4); Monocytes Absolute Auto 0.8 X10*3/uL (0.1-1.2); Monocytes Percent Auto 14.4 % (2-11); Neutrophils Percent Auto 52.4 % (45-73); Platelet Count 192 X10*3/uL (160-400); Red Blood Count 4.18 X10*6/uL (4.60-5.80); Red Cell Distribution Width 13.7 % (11.0-16.0); Retic HGB Equivalent 35.1 pg (30.0-35.0); Reticulocyte Percent 1.9 % (0.5-1.8); Reticulocytes Absolute 0.078 X10*6/uL (0.026-0.095); White Blood Count 5.8 X10*3/uL (4.8-10.8)
[2021-12-06 14:02] LABS: Estimated Average Glucose 128 mg/dL; Hemoglobin A1C 147.6311 umol/L; Hemoglobin A1c % 6.1 %
[2021-12-06 14:10] LABS: Alanine Aminotransferase < 6 U/L (0-40); Albumin Level 3.9 g/dL (3.5-5.0); Alkaline Phosphatase 64 U/L (39-117); Anion Gap 12 (12-20); Aspartate Amino Transferase 10 U/L (5-37); Bilirubin Total 0.4 mg/dL (0.0-1.0); Blood Urea Nitrogen 22 mg/dL (9-16); Calcium 9.6 mg/dL (8.4-10.2); Carbon Dioxide 28 mmol/L (22-29); Chloride 103 mmol/L (96-108); Cholesterol 121 mg/dL; Estimated Glomerular Filt Rate > 60; Glucose Random 65 mg/dL (60-115); HDL Cholesterol 31 mg/dL; Iron 120 mcg/dL (45-160); LDL Cholesterol Calculated 65 mg/dl; Percent Iron Saturation 32 % (15-50); Potassium 4.7 mmol/L (3.3-5.1); Sodium 138 mmol/L (135-145); Total Iron Binding Capacity 373 mcg/dL (228-428); Total Protein 6.6 g/dL (6.5-8.0); Triglycerides 128 mg/dL; Unsaturated Iron Binding 253 ug/dL
[2021-12-06 14:18] LABS: Ferritin 25 ng/mL (20-250); Free T4 (Free Thyroxine) 0.87 ng/dL (0.71-1.85); Thyroid Stimulating Hormone 2.29 uIU/mL (0.32-4.0)
[2021-12-06 14:36] LABS: Folate 10.3 ng/mL (> or = 4.0); Vitamin B12 541 pg/mL (200-900)
== END 2021-12-06 11:11 | disposition home or self-care (01) ==
LOC: HO.HMGCLDS 11:10
PROVIDERS: Visit Provider Internal Medicine
DX: E78.00 Pure hypercholesterolemia, unspecified (principal); E11.65 Type 2 diabetes mellitus with hyperglycemia
CPT/HCPCS: 36415; 80053; 80061; 82607; 82728; 82746; 83036; 83540; 84439; 84443; 85025; 85045

== ENCOUNTER 2022-01-08 16:23 | Emergency (ER) | payer MEDICARE, MEDICAID, SELFPAY ==
--- NOTE | ~2022-01-08 | XR_ITS ---
EXAMINATION: PORTABLE CHEST 1 VIEW CLINICAL INFORMATION: hyperglycemia ?pneumonia . COMPARISON: 12/02/2021. TECHNIQUE: Portable frontal view of the chest was obtained. FINDINGS: The lungs are hypoexpanded. No focal infiltrate, effusion, edema, or pneumothorax. Cardiac and mediastinal silhouettes are within normal limits for technique. No acute bony abnormality seen. XR/XR chest 1V IMPRESSION: Hypoexpanded but otherwise no evidence of acute disease.
--- NOTE | 2022-01-08 16:38 | ED_ITS ---
HPI - General Adult General Chief complaint: General Medical Stated complaint: hyperglycemia Time Seen by Provider: 01/08/22 16:26 History of Present Illness HPI narrative: Patient is 71 years old with history of intellectual disability, schizophrenia, depression brought by snf for blood sugar above 500 received insulin to arrival and when EMS reached blood sugar 168. Patient is very poor historian staying here cough vomiting yesterday unable to confirm that per staff patient is at baseline per staff patient has PBJ and a banana earlier which increased the blood sugar otherwise patient's blood sugar is usually in less than 200. Patient was given 8 units of Humalog prior to arrival Related Data Home Medications Medication Instructions Recorded Confirmed melatonin 3 mg tablet 3 mg PO BEDTIME 08/09/21 12/27/21 benztropine 1 mg tablet 0.5 mg PO BID 11/29/21 12/27/21 tamsulosin 0.4 mg capsule 0.8 mg PO BEDTIME 11/29/21 12/27/21 Previous Rx's Medication Instructions Recorded aspirin 81 mg tablet,delayed 81 mg PO DAILY 90 Days #90 tab 05/14/21 release (Adult Low Dose Aspirin) topiramate 50 mg tablet (Topamax) 50 mg PO BID 90 Days #180 tab 06/19/21 atorvastatin 20 mg tablet 20 mg PO BEDTIME #90 tab 07/16/21 blood sugar diagnostic (Prodigy No #100 ea 08/10/21 Coding) metformin 1,000 mg tablet 1,000 mg PO BID #180 tab 08/10/21 gabapentin 300 mg capsule 300 mg PO BEDTIME #90 cap 08/21/21 risperidone 1 mg tablet 1 mg PO BID #180 tab 08/21/21 lisinopril 20 mg tablet 20 mg PO DAILY 14 Days #14 tab 11/29/21 sertraline 50 mg tablet 50 mg PO DAILY 90 Days #90 tab 12/12/21 carbidopa 25 mg-levodopa 100 mg 1.5 tab PO QID 90 Days #540 tab 12/25/21 tablet dulaglutide 0.75 mg/0.5 mL 0.75 mg (0.5 mL) SUBCUT QWEEK #2 ml 12/27/21 subcutaneous pen injector (Aristides) insulin glargine 100 unit/mL (3 8 unit (0.08 mL) SUBCUT DAILY@1600 12/27/21 mL) subcutaneous pen (Basaglar #15 ml KwikPen U-100 Insulin) divalproex 125 mg capsule,delayed 500 mg PO BID 90 Days #720 cap 01/01/22 release sprinkle mirtazapine 15 mg disintegrating 15 mg PO BEDTIME 90 Days #90 tab 01/01/22 tablet escitalopram oxalate 5 mg/5 mL 5 mg (5 mL) PO DAILY #240 ml 01/08/22 oral solution Allergies Allergy/AdvReac Type Severity Reaction Status Date / Time perfume Allergy Intermediate ITCHING Verified 12/27/21 10:25 Review of Systems Review of Systems: Yes all other systems are reviewed and are negative [facility] Past Medical History Medical History Annual physical exam BPH with obstruction/lower urinary tract symptoms Depression Developmental delay, moderate Diabetes type 2, uncontrolled Dysphagia Gastroesophageal reflux disease Hypercholesteremia Hypertension Metabolic encephalopathy Occipital infarction Parkinson's disease Rash Schizophrenia Tubular adenoma of colon Type 2 diabetes mellitus with hyperglycemia Type 2 diabetes mellitus with hyperglycemia, without long-term current use of insulin Vitamin D deficiency Surgical History History of circumcision History of colonoscopy History of prostate surgery Family History Family History Father Type II diabetes mellitus Mother Type II diabetes mellitus Social History Social History Household Members: Other Housing: Other Housing Other:: RESIDENTIAL Alcohol intake: never Patient Tobacco Use Status: Never used Tobacco e-Cigarette/Vaping Use: Never Used Second Hand Smoke Exposure: No Advance Directives: Yes Advance Directives on File: Yes Advance Directives Date on File: 07/11/21 service: No Current occupational status: disabled Current occupational exposures/hazards: No Cognitive needs: No Hearing needs: No Vision needs: No Physical Exam ED Vital Signs: Vital Signs - 24 hr 01/08/22 16:40 Temperature 99 F Pulse Rate 88 Respiratory Rate 18 Blood Pressure 140/82 H Pulse Oximetry 95 BMI result Body Mass Index 23.3 Appearance: Alert. Oriented X1-2. No acute distress. Eyes: No pallor / icterus ENT: Pharynx normal. Oral Mucosa moist Neck: Normal inspection. Neck supple. CVS: Normal heart rate and rhythm. Pulses normal. Respiratory: No respiratory distress. Equal air entry bilateral, no wheezing/rales/rhonchi Abdomen: Soft and nontender. Bowel sounds are present, no mass palpable, Skin: Skin warm and dry. Normal skin color. Normal skin turgor. Extremities: No lower extremity edema. No calf tenderness Neuro: Oriented X 3. No motor deficit. Medical Decision Making MDM Narrative Medical decision making narrative: Patient with stable labs hyperglycemia secondary to high carbohydrate foods prior to arrival improved after insulin given by the staff will discharge patient back to snf Lab Data Lab results reviewed: Yes I reviewed the patient's lab results. Result diagrams: 01/08/22 17:06 01/08/22 17:06 Labs: Lab Results 01/08/22 01/08/22 01/08/22 Range/Units 17:06 17:06 17:06 WBC 4.9 (4.8-10.8) X10*3/uL RBC 3.91 L (4.60-5.80) X10*6/uL Hgb 11.9 L (14.0-18.0) g/dl Hct 37.3 L (42.0-52.0) % MCV 95.4 (80.0-98.0) fL MCH 30.4 (27.0-33.0) pg MCHC 31.9 (31.0-36.0) g/dl RDW 13.8 (11.0-16.0) % Plt Count 156 L (160-400) X10*3/uL MPV 8.4 L (9.4-12.4) fL Immature Gran % (Auto) 2.0 H (0.0-0.4) % Neut % (Auto) 49.1 (45-73) % Lymph % (Auto) 28.4 (20-40) % [place] % (Auto) 16.4 H (2-11) % Eos % (Auto) 3.9 (0-4) % Baso % (Auto) 0.2 (0-2) % Lymph # (Auto) 1.4 (1.2-4.9) X10*3/uL [place] # (Auto) 0.8 (0.1-1.2) X10*3/uL Eos # (Auto) 0.2 (0.0-0.4) X10*3/uL Baso # (Auto) 0.0 (0.0-0.2) X10*3/uL Abs Immat Gran (auto) 0.10 H (0.00-0.03) X10*3/uL Absolute Neuts (auto) 2.4 (2.0-8.3) x10*3/uL Absolute Nucleated RBC 0.030 H (0.0-0.012) X10*3/uL Nucleated RBC % (auto) 0.6 H (0.0-0.2) /100WBC Sodium 137 (135-145) mmol/L Potassium 4.1 (3.3-5.1) mmol/L Chloride 105 (96-108) mmol/L Carbon Dioxide 25 (22-29) mmol/L Anion Gap 11 L (12-20) BUN 13 (9-16) mg/dL Creatinine 0.81 (0.5-1.4) mg/dL Estim Creat Clear Calc 71.7 Estimated GFR > 60 Random Glucose 193 H D (60-115) mg/dL Calcium 8.6 D (8.4-10.2) mg/dL Total Bilirubin 0.4 (0.0-1.0) mg/dL AST 8 (5-37) U/L ALT < 6 (0-40) U/L Alkaline Phosphatase 52 (39-117) U/L Total Protein 5.5 L (6.5-8.0) g/dL Albumin 3.3 L (3.5-5.0) g/dL Lipase 9 (8-78) U/L COVID-19 (MICHELLE) (Negative) COVID-19 Clin Com Influenza Type A (ROSETTE) Negative (Negative) Influenza Type B (ROSETTE) Negative (Negative) Influenza A & B Note See Note 01/08/22 Range/Units 17:06 WBC (4.8-10.8) X10*3/uL RBC (4.60-5.80) X10*6/uL Hgb (14.0-18.0) g/dl Hct (42.0-52.0) % MCV (80.0-98.0) fL MCH (27.0-33.0) pg MCHC (31.0-36.0) g/dl RDW (11.0-16.0) % Plt Count (160-400) X10*3/uL MPV (9.4-12.4) fL Immature Gran % (Auto) (0.0-0.4) % Neut % (Auto) (45-73) % Lymph % (Auto) (20-40) % [place] % (Auto) (2-11) % Eos % (Auto) (0-4) % Baso % (Auto) (0-2) % Lymph # (Auto) (1.2-4.9) X10*3/uL [place] # (Auto) (0.1-1.2) X10*3/uL Eos # (Auto) (0.0-0.4) X10*3/uL Baso # (Auto) (0.0-0.2) X10*3/uL Abs Immat Gran (auto) (0.00-0.03) X10*3/uL Absolute Neuts (auto) (2.0-8.3) x10*3/uL Absolute Nucleated RBC (0.0-0.012) X10*3/uL Nucleated RBC % (auto) (0.0-0.2) /100WBC Sodium (135-145) mmol/L Potassium (3.3-5.1) mmol/L Chloride (96-108) mmol/L Carbon Dioxide (22-29) mmol/L Anion Gap (12-20) BUN (9-16) mg/dL Creatinine (0.5-1.4) mg/dL Estim Creat Clear Calc Estimated GFR Random Glucose (60-115) mg/dL Calcium (8.4-10.2) mg/dL Total Bilirubin (0.0-1.0) mg/dL AST (5-37) U/L ALT (0-40) U/L Alkaline Phosphatase (39-117) U/L Total Protein (6.5-8.0) g/dL Albumin (3.5-5.0) g/dL Lipase (8-78) U/L COVID-19 (MICHELLE) Negative (Negative) COVID-19 Clin Com See Note Influenza Type A (ROSETTE) (Negative) Influenza Type B (ROSETTE) (Negative) Influenza A & B Note Discharge Plan Discharge Clinical Impression: Controlled diabetes mellitus with hyperglycemia Patient Disposition: Home, Self-Care Instructions: Diabetic Hyperglycemia (ED) Additional Instructions: Diabetic diet as advised Do not eat high carbohydrate meals as it may increase your blood sugar Prescriptions: No Action aspirin [Adult Low Dose Aspirin] 81 mg tablet,delayed release (DR/EC) 81 mg PO DAILY 90 Days Qty: 90 3RF topiramate [Topamax] 50 mg tablet 50 mg PO BID 90 Days Qty: 180 2RF atorvastatin 20 mg tablet 20 mg PO BEDTIME Qty: 90 3RF (DME) Prodigy No Coding Strip See Rx Instructions .Route Qty: 100 6RF Rx Instructions: Test 3 times daily metformin 1,000 mg tablet 1,000 mg PO BID Qty: 180 3RF gabapentin 300 mg capsule 300 mg PO BEDTIME Qty: 90 3RF risperidone 1 mg tablet 1 mg PO BID Qty: 180 0RF sertraline 50 mg tablet 50 mg PO DAILY 90 Days Qty: 90 1RF carbidopa-levodopa 25-100 mg tablet 1.5 tab PO QID 90 Days Qty: 540 3RF mirtazapine 15 mg tablet,disintegrating 15 mg PO BEDTIME 90 Days Qty: 90 2RF divalproex 125 mg capsule, delayed rel sprinkle 500 mg PO BID 90 Days Qty: 720 2RF escitalopram oxalate 5 mg/5 mL solution 5 mg PO DAILY Qty: 240 3RF melatonin 3 mg Tablet 3 mg PO BEDTIME 0RF benztropine 1 mg tablet 0.5 mg PO BID 0RF tamsulosin 0.4 mg capsule 0.8 mg PO BEDTIME 0RF lisinopril 20 mg tablet 20 mg PO DAILY 14 Days Qty: 14 0RF Davidaglevelyn RuizPen U-100 Insulin 100 unit/mL (3 mL) insulin pen 8 unit subcut DAILY@1600 Qty: 15 2RF Trulicity 0.75 mg/0.5 mL pen injector 0.75 mg subcut QWEEK Qty: 2 1RF
[2022-01-08 16:40] VITALS: BP 130/80; BP 140/82; PULSE 88; PULSE 90; RESP 18; TEMP 37.2; O2SAT 95; BMI 23.3
[2022-01-08] MEDS: 0.9 % Sodium Chloride 1,000 ML 999 ML IV (16:48)
[2022-01-08 17:13] LABS: MANUAL DIFF FLAG NO
[2022-01-08 17:20] LABS: Basophils Percent Auto 0.2 % (0-2); Eosinophils Absolute Auto 0.2 X10*3/uL (0.0-0.4); Eosinophils Percent Auto 3.9 % (0-4); Hematocrit 37.3 % (42.0-52.0); Hemoglobin 11.9 g/dl (14.0-18.0); Lymphocytes Absolute Auto 1.4 X10*3/uL (1.2-4.9); Lymphocytes Percent Auto 28.4 % (20-40); Mean Corpuscular HGB Conc 31.9 g/dl (31.0-36.0); Mean Corpuscular Hemoglobin 30.4 pg (27.0-33.0); Mean Corpuscular Volume 95.4 fL (80.0-98.0); Mean Platelet Volume 8.4 fL (9.4-12.4); Monocytes Absolute Auto 0.8 X10*3/uL (0.1-1.2); Monocytes Percent Auto 16.4 % (2-11); NRBC Pct Auto 0.6 /100WBC (0.0-0.2); Neutrophils Absolute Auto 2.4 x10*3/uL (2.0-8.3); Neutrophils Percent Auto 49.1 % (45-73); Platelet Count 156 X10*3/uL (160-400); Red Blood Count 3.91 X10*6/uL (4.60-5.80); Red Cell Distribution Width 13.8 % (11.0-16.0); White Blood Count 4.9 X10*3/uL (4.8-10.8)
[2022-01-08 17:32] LABS: Alanine Aminotransferase < 6 U/L (0-40); Albumin Level 3.3 g/dL (3.5-5.0); Alkaline Phosphatase 52 U/L (39-117); Anion Gap 11 (12-20); Aspartate Amino Transferase 8 U/L (5-37); Bilirubin Total 0.4 mg/dL (0.0-1.0); Blood Urea Nitrogen 13 mg/dL (9-16); Calcium 8.6 mg/dL (8.4-10.2); Carbon Dioxide 25 mmol/L (22-29); Chloride 105 mmol/L (96-108); Creatinine Clr Calc Pharmacy 71.7; Estimated Glomerular Filt Rate > 60; Glucose Random 193 mg/dL (60-115); Lipase 9 U/L (8-78); Potassium 4.1 mmol/L (3.3-5.1); Sodium 137 mmol/L (135-145); Total Protein 5.5 g/dL (6.5-8.0)
[2022-01-08 17:40] LABS: COVID-19 Test Negative (Negative); IDNOW Serial# 08D9AD1C; IDNOW Serial# 16C4AD1C; Influenza A Negative (Negative); Influenza B2 Negative (Negative)
[2022-01-08 19:18] LABS: Glucose, Whole Blood 150 mg/dL (60-115)
== END 2022-01-08 19:14 | disposition home or self-care (01) ==
PROVIDERS: Emergency Provider Internal Medicine; PCP Internal Medicine
DX: E11.65 Type 2 diabetes mellitus with hyperglycemia (principal); Z20.822 Contact with and (suspected) exposure to COVID-19; E78.5 Hyperlipidemia, unspecified; I10 Essential (primary) hypertension; G20 Parkinson's disease; F20.9 Schizophrenia, unspecified; F32.9 Major depressive disorder, single episode, unspecified; Z86.73 Personal history of transient ischemic attack (TIA), and cerebral infarction without residual deficits; Z79.82 Long term (current) use of aspirin; Z79.02 Long term (current) use of antithrombotics/antiplatelets; Z79.899 Other long term (current) drug therapy; Z79.4 Long term (current) use of insulin
CPT/HCPCS: 71045; 80053; 82947; 83690; 85025; 87502; 87635; 96360; 99283; 99284

== ENCOUNTER 2022-01-24 19:19 | Emergency (ER) | payer MEDICARE, MEDICAID, SELFPAY ==
--- NOTE | ~2022-01-24 | XR_ITS ---
EXAMINATION: XR CHEST CLINICAL INFORMATION: Choking episode COMPARISON: Chest x-ray 01/08/2022 TECHNIQUE: Frontal view of the chest was obtained. FINDINGS: Cardiac silhouette is normal in size. The lungs are mildly hypoinflated. Subtle bibasilar opacities are most suggestive of atelectasis. There is no lobar consolidation. No pleural effusion or pneumothorax. XR/XR chest 1V IMPRESSION: Hypoinflated lungs with suspected mild bibasilar atelectasis.
[2022-01-24 19:55] VITALS: PULSE 86; RESP 16; TEMP 37.1; O2SAT 100; BMI 25.0
[2022-01-24 21:02] VITALS: BP 172/86; PULSE 84; RESP 18; TEMP 36.8; O2SAT 99
--- NOTE | 2022-01-24 22:15 | ED_ITS ---
HPI - General Adult General Chief complaint: General Medical Stated complaint: dyspnea Time Seen by Provider: 01/24/22 21:29 Source: other (Clinical Systems Educator) Mode of arrival: ambulatory Limitations: altered mental status History of Present Illness HPI narrative: Patient's history of TIAs schizophrenia type 2 diabetes and history of dysphagia had episode of choking when he eat a cheese cheap at [facility] turned slightly blue and started breathing again patient had a similar episodes of choking in the past multiple times Related Data Home Medications Medication Instructions Recorded Confirmed melatonin 3 mg tablet 3 mg PO BEDTIME 08/09/21 12/27/21 benztropine 1 mg tablet 0.5 mg PO BID 11/29/21 12/27/21 Previous Rx's Medication Instructions Recorded aspirin 81 mg tablet,delayed 81 mg PO DAILY 90 Days #90 tab 05/14/21 release (Adult Low Dose Aspirin) topiramate 50 mg tablet (Topamax) 50 mg PO BID 90 Days #180 tab 06/19/21 atorvastatin 20 mg tablet 20 mg PO BEDTIME #90 tab 07/16/21 blood sugar diagnostic (Prodigy No #100 ea 08/10/21 Coding) metformin 1,000 mg tablet 1,000 mg PO BID #180 tab 08/10/21 gabapentin 300 mg capsule 300 mg PO BEDTIME #90 cap 08/21/21 risperidone 1 mg tablet 1 mg PO BID #180 tab 08/21/21 lisinopril 20 mg tablet 20 mg PO DAILY 14 Days #14 tab 11/29/21 sertraline 50 mg tablet 50 mg PO DAILY 90 Days #90 tab 12/12/21 carbidopa 25 mg-levodopa 100 mg 1.5 tab PO QID 90 Days #540 tab 12/25/21 tablet dulaglutide 0.75 mg/0.5 mL 0.75 mg (0.5 mL) SUBCUT QWEEK #2 ml 12/27/21 subcutaneous pen injector (Trulicity) insulin glargine 100 unit/mL (3 8 unit (0.08 mL) SUBCUT DAILY@1600 12/27/21 mL) subcutaneous pen (Basaglar #15 ml KwikPen U-100 Insulin) divalproex 125 mg capsule,delayed 500 mg PO BID 90 Days #720 cap 01/01/22 release sprinkle mirtazapine 15 mg disintegrating 15 mg PO BEDTIME 90 Days #90 tab 01/01/22 tablet escitalopram oxalate 5 mg/5 mL 5 mg (5 mL) PO DAILY #240 ml 01/08/22 oral solution glucose 4 gram chewable tablet 4 g PO Q15M PRN #90 tab 01/17/22 lancets 26 gauge (CareTouch Safety #100 ea 01/17/22 Lancets) ondansetron 4 mg disintegrating 4 mg PO Q8H PRN #20 tab 01/22/22 tablet tamsulosin 0.4 mg capsule 0.8 mg PO BEDTIME #180 cap 01/23/22 Allergies Allergy/AdvReac Type Severity Reaction Status Date / Time perfume Allergy Intermediate ITCHING Verified 01/22/22 14:41 Review of Systems Review of Systems: Yes all other systems are reviewed and are negative [facility] Past Medical History Medical History Annual physical exam BPH with obstruction/lower urinary tract symptoms Depression Developmental delay, moderate Diabetes type 2, uncontrolled Dysphagia Gastroesophageal reflux disease Hypercholesteremia Hypertension Metabolic encephalopathy Occipital infarction Parkinson's disease Rash Schizophrenia Tubular adenoma of colon Type 2 diabetes mellitus with hyperglycemia Type 2 diabetes mellitus with hyperglycemia, without long-term current use of insulin Vitamin D deficiency Surgical History History of circumcision History of colonoscopy History of prostate surgery Family History Family History Father Type II diabetes mellitus Mother Type II diabetes mellitus Social History Social History Household Members: Other Housing: Other Housing Other:: FDC Alcohol intake: never Patient Tobacco Use Status: Never used Tobacco e-Cigarette/Vaping Use: Never Used Second Hand Smoke Exposure: No Advance Directives: Yes Advance Directives on File: Yes Advance Directives Date on File: 07/11/21 service: No Current occupational status: disabled Current occupational exposures/hazards: No Cognitive needs: No Hearing needs: No Vision needs: No Physical Exam ED Vital Signs: Vital Signs - 24 hr 01/24/22 19:55 01/24/22 21:02 Temperature 98.7 F 98.2 F Pulse Rate 86 84 Respiratory Rate 16 18 Blood Pressure 172/86 H Pulse Oximetry 100 99 BMI result Body Mass Index 25.0 Appearance: Alert. Oriented X3. No acute distress. Mentally challenged Eyes: No pallor ENT: Pharynx normal. Oral Mucosa moist Neck: Normal inspection. Neck supple. no stridor CVS: Normal heart rate and rhythm. Pulses normal. Respiratory: No respiratory distress. Equal air entry bilateral, no wheezing /rales/rhonchi Abdomen: Soft and nontender. Bowel sounds are present, Skin: Skin warm and dry. Normal skin color. Normal skin turgor. Extremities: No lower extremity edema. No calf tenderness Neuro: Oriented X 3. No motor deficit. Medical Decision Making MDM Narrative Medical decision making narrative: Patient chest x-ray negative for any infiltrate able to drink p.o. fluids [facility] advised to follow with dietitian Discharge Plan Discharge Clinical Impression: Choking episode Patient Disposition: Home, Self-Care Instructions: Dysphagia (ED) Additional Instructions: Give only take pureed fluids Follow-up with dietitian for modification of the food f/u With PCP for further management Prescriptions: No Action aspirin [Adult Low Dose Aspirin] 81 mg tablet,delayed release (DR/EC) 81 mg PO DAILY 90 Days Qty: 90 3RF topiramate [Topamax] 50 mg tablet 50 mg PO BID 90 Days Qty: 180 2RF atorvastatin 20 mg tablet 20 mg PO BEDTIME Qty: 90 3RF (DME) Prodigy No Coding Strip See Rx Instructions .Route Qty: 100 6RF Rx Instructions: Test 3 times daily metformin 1,000 mg tablet 1,000 mg PO BID Qty: 180 3RF gabapentin 300 mg capsule 300 mg PO BEDTIME Qty: 90 3RF risperidone 1 mg tablet 1 mg PO BID Qty: 180 0RF sertraline 50 mg tablet 50 mg PO DAILY 90 Days Qty: 90 1RF carbidopa-levodopa 25-100 mg tablet 1.5 tab PO QID 90 Days Qty: 540 3RF mirtazapine 15 mg tablet,disintegrating 15 mg PO BEDTIME 90 Days Qty: 90 2RF divalproex 125 mg capsule, delayed rel sprinkle 500 mg PO BID 90 Days Qty: 720 2RF escitalopram oxalate 5 mg/5 mL solution 5 mg PO DAILY Qty: 240 3RF tamsulosin 0.4 mg capsule 0.8 mg PO BEDTIME Qty: 180 1RF melatonin 3 mg Tablet 3 mg PO BEDTIME 0RF benztropine 1 mg tablet 0.5 mg PO BID 0RF lisinopril 20 mg tablet 20 mg PO DAILY 14 Days Qty: 14 0RF Davidaglevelyn RuizPen U-100 Insulin 100 unit/mL (3 mL) insulin pen 8 unit subcut DAILY@1600 Qty: 15 2RF Trulicity 0.75 mg/0.5 mL pen injector 0.75 mg subcut QWEEK Qty: 2 1RF glucose 4 gram tablet,chewable 4 g PO Q15M PRN (Reason: hypoglycemia) Qty: 90 0RF Rx Instructions: until symptoms of low blood sugar are controlled (DME) lancets [CareTouch Safety Lancets] 26 gauge misc See Rx Instructions .Route Qty: 100 0RF Rx Instructions: As directed ondansetron 4 mg tablet,disintegrating 4 mg PO Q8H PRN (Reason: nausea and vomiting) Qty: 20 0RF Interventions: ED Discharge Assessment Last Done: 01/24/22 21:40 Discharge Date/Time: 01/24/22 21:41 Print Language: Maldivian
== END 2022-01-24 21:41 | disposition home or self-care (01) ==
PROVIDERS: Emergency Provider Internal Medicine
DX: R09.89 Other specified symptoms and signs involving the circulatory and respiratory systems (principal); E11.9 Type 2 diabetes mellitus without complications; I10 Essential (primary) hypertension; G20 Parkinson's disease; F25.9 Schizoaffective disorder, unspecified; Z86.73 Personal history of transient ischemic attack (TIA), and cerebral infarction without residual deficits
CPT/HCPCS: 71045; 99283; 99284

== ENCOUNTER 2022-03-12 15:16 | Outpatient (REF) | payer MEDICARE, MEDICAID, SELFPAY ==
--- NOTE | ~2022-03-12 | US_ITS ---
EXAMINATION: US VENOUS ULTRASOUND WITH DOPPLER LOWER EXTREMITY, BILATERAL CLINICAL INFORMATION: Localized swelling, mass and lump lower limb bilateral COMPARISON: Bilateral DVT study 07/01/2018 TECHNIQUE: Ultrasound of the deep veins is performed from the hip to the calf with compression sonography and color and pulse Doppler assessment. Spectral analysis with color-flow imaging is performed. FINDINGS: RIGHT: There is normal venous compression and respiratory variation and augmented flow. The visualized common femoral vein, superficial femoral vein, profunda femoral vein show no evidence of deep venous thrombosis. Popliteal vein and the calf veins are not optimally seen, but no abnormality is detected. There is no significant popliteal fossa cyst. LEFT: There is normal venous compression and respiratory variation and augmented flow. The visualized common femoral vein, superficial femoral vein, profunda femoral vein show no evidence of deep venous thrombosis. Popliteal vein and the calf veins are not optimally seen, but no abnormality is detected. There is no significant popliteal fossa cyst. If the patient's symptoms persist, followup ultrasound in 5 days 7 days might be of value to exclude proximal propagation from a non-visualized calf vein. US/US venous duplex LE BI IMPRESSION: No DVT demonstrated in either lower extremity.
== END 2022-03-12 15:17 | disposition home or self-care (01) ==
LOC: HO.US 15:16
PROVIDERS: PCP Internal Medicine; Visit Provider Internal Medicine
DX: R22.43 Localized swelling, mass and lump, lower limb, bilateral (principal)
CPT/HCPCS: 93970

== ENCOUNTER 2022-04-11 09:56 | Emergency (ER) | payer MEDICARE, MEDICAID, SELFPAY ==
--- NOTE | ~2022-04-11 | XR_ITS ---
EXAMINATION: XR CHEST CLINICAL INFORMATION: Cough COMPARISON: Chest radiographs 01/24/2022, 01/08/2022 TECHNIQUE: Upright AP view of the chest was obtained. FINDINGS: Lungs are clear. There is no airspace consolidation or groundglass opacity or effusion. Heart size normal. Vascularity normal. The hilar and mediastinal contours and bony structures are unremarkable. XR/XR chest 1V IMPRESSION: Unremarkable examination.
[2022-04-11 10:05] VITALS: BP 136/78; PULSE 98
[2022-04-11 10:16] VITALS: BP 142/103; PULSE 97; RESP 20; TEMP 36.6; O2SAT 99; BMI 23.3
[2022-04-11 10:22] VITALS: BP 162/76
--- NOTE | 2022-04-11 10:34 | ED_ITS ---
HPI - General Adult General Chief complaint: General Medical Stated complaint: S/O COUGHING,EPISTAXIS,LT AND RT FLANK PAIN Time Seen by Provider: 04/11/22 10:00 Source: patient and other (caregiver) Mode of arrival: EMS Limitations: altered mental status History of Present Illness MD complaint: coughed this AM and hit caused his nose to bleed so [facility] come Onset (ago): hour(s) (8am) Location: face (nose) Severity: mild Pain Consistency: now resolved Relieving factors: none Exacerbating factors: other (coughing, no choking) Associated symptoms: other (resolved very bried L nares epistaxis only on aspirin, appears at baseline now) Treatments prior to arrival: none Related Data Home Medications Medication Instructions Recorded Confirmed melatonin 3 mg tablet 3 mg PO BEDTIME 08/09/21 03/12/22 benztropine 1 mg tablet 0.5 mg PO BID 11/29/21 03/12/22 insulin glargine 100 unit/mL (3 10 unit subcut QPM 02/01/22 03/12/22 mL) subcutaneous pen (Basaglar KwikPen U-100 Insulin) lorazepam 0.5 mg tablet (Ativan) 0.5 mg PO DAILY PRN 02/01/22 03/12/22 Previous Rx's Medication Instructions Recorded atorvastatin 20 mg tablet 20 mg PO BEDTIME #90 tabs 07/16/21 metformin 1,000 mg tablet 1,000 mg PO BID #180 tabs 08/10/21 gabapentin 300 mg capsule 300 mg PO BEDTIME #90 caps 08/21/21 risperidone 1 mg tablet 1 mg PO BID #180 tabs 08/21/21 lisinopril 20 mg tablet 20 mg PO DAILY 14 days #14 tabs 11/29/21 sertraline 50 mg tablet 50 mg PO DAILY 90 days #90 tabs 12/12/21 carbidopa 25 mg-levodopa 100 mg 1.5 tab PO QID 90 days #540 tabs 12/25/21 tablet insulin glargine 100 unit/mL (3 8 unit (0.08 mL) subcut DAILY@1600 12/27/21 mL) subcutaneous pen (Basaglar #15 mL KwikPen U-100 Insulin) divalproex 125 mg capsule,delayed 500 mg PO BID 90 days #720 caps 04/05/22 release sprinkle mirtazapine 15 mg disintegrating 15 mg PO BEDTIME 90 days #90 tabs 01/01/22 tablet escitalopram oxalate 5 mg/5 mL 5 mg (5 mL) PO DAILY #240 mL 01/08/22 oral solution glucose 4 gram chewable tablet 4 g PO Q15M PRN hypoglycemia #90 01/17/22 tabs lancets 26 gauge (CareTouch Safety #100 ea 01/17/22 Lancets) ondansetron 4 mg disintegrating 4 mg PO Q8H PRN nausea and 01/22/22 tablet vomiting #20 tabs tamsulosin 0.4 mg capsule 0.8 mg PO BEDTIME #180 caps 01/23/22 THICK IT #1 ea 02/01/22 blood sugar diagnostic (Prodigy No #100 ea 02/04/22 Coding) topiramate 50 mg tablet (Topamax) 50 mg PO BID 90 days #180 tabs 02/19/22 aspirin 81 mg tablet,delayed 81 mg PO DAILY 90 days #90 tabs 03/19/22 release (Adult Low Dose Aspirin) compress.stocking,knee,reg,med #2 ea 04/05/22 triamcinolone acetonide 0.5 % 1 appl topical BID 7 days #60 grams 04/05/22 topical cream Allergies Allergy/AdvReac Type Severity Reaction Status Date / Time perfume Allergy Intermediate ITCHING Verified 04/05/22 16:33 Review of Systems Review of Systems: ROS unable to be obtained due to altered mental status PMFSH Past Medical History Source: old records reviewed Medical History Annual physical exam BPH with obstruction/lower urinary tract symptoms Depression Developmental delay, moderate Diabetes type 2, uncontrolled Dysphagia Gastroesophageal reflux disease Hypercholesteremia Hypertension Metabolic encephalopathy Occipital infarction Parkinson's disease Rash Schizophrenia Tubular adenoma of colon Type 2 diabetes mellitus with hyperglycemia Type 2 diabetes mellitus with hyperglycemia, without long-term current use of insulin Vitamin D deficiency Surgical History History of circumcision History of colonoscopy History of prostate surgery Family History Family History Father Type II diabetes mellitus Mother Type II diabetes mellitus Social History Social History Household Members: Other Housing: Other Housing Other:: ALF Alcohol intake: never Patient Tobacco Use Status: Never used Tobacco e-Cigarette/Vaping Use: Never Used Second Hand Smoke Exposure: No Advance Directives: Yes Advance Directives on File: Yes Advance Directives Date on File: 07/11/21 service: No Current occupational status: disabled Current occupational exposures/hazards: No Cognitive needs: Yes Hearing needs: No Vision needs: No Physical Exam ED Vital Signs: Vital Signs - 24 hr 04/11/22 10:16 04/11/22 10:22 Temperature 97.9 F Pulse Rate 97 Respiratory Rate 20 Blood Pressure 142/103 H 162/76 H Pulse Oximetry 99 Oxygen Delivery Method Room Air BMI result Body Mass Index 23.3 Appearance: Alert. at baseline - yelling out No acute distress. Eyes: Pupils equal, round and reactive to light. ENT: Pharynx normal. Dried blood L nares no active bleeding noted Neck: Normal inspection. Neck supple. CVS: Normal heart rate and rhythm. Pulses normal. Respiratory: No respiratory distress. Breath sounds normal. Abdomen: Soft and nontender. Skin: Skin warm and dry. Normal skin color. Normal skin turgor. Extremities: chronic pitting 1+ lower extremity edema. No calf ttp Neuro: at baseline. No motor deficit. No sensory deficit. Course Course Course Narrative: negative workup stable for DC at this time Medical Decision Making MDM Narrative Medical decision making narrative: 72 yo male [facility] hx of LE edema, TIA, confusion at baseline, PVD, DM, HLD, HTN, schizophrenia started to cough this AM - it was brief he was not choking he developed a brief left sided nose bleed. That resolved. he is only on aspirin at this time. He is at baseline. No active bleeding. Will obtain basic labs and CXR. Lab Data Result diagrams: 04/11/22 11:09 04/11/22 11:09 Labs: Lab Results 04/11/22 04/11/22 04/11/22 Range/Units 11:09 11:09 11:09 WBC 6.0 (4.8-10.8) X10*3/uL RBC 4.54 L (4.60-5.80) X10*6/uL Hgb 13.7 L (14.0-18.0) g/dl Hct 43.4 (42.0-52.0) % MCV 95.6 (80.0-98.0) fL MCH 30.2 (27.0-33.0) pg MCHC 31.6 (31.0-36.0) g/dl RDW 14.1 (11.0-16.0) % Plt Count 179 (160-400) X10*3/uL MPV 8.1 L (9.4-12.4) fL Immature Gran % (Auto) 1.8 H (0.0-0.4) % Neut % (Auto) 53.7 (45-73) % Lymph % (Auto) 24.1 (20-40) % [place] % (Auto) 13.9 H (2-11) % Eos % (Auto) 6.2 H (0-4) % Baso % (Auto) 0.3 (0-2) % Lymph # (Auto) 1.4 (1.2-4.9) X10*3/uL [place] # (Auto) 0.8 (0.1-1.2) X10*3/uL Eos # (Auto) 0.4 (0.0-0.4) X10*3/uL Baso # (Auto) 0.0 (0.0-0.2) X10*3/uL Abs Immat Gran (auto) 0.11 H (0.00-0.03) X10*3/uL Absolute Neuts (auto) 3.2 (2.0-8.3) x10*3/uL Absolute Nucleated RBC 0.020 H (0.0-0.012) X10*3/uL Nucleated RBC % (auto) 0.3 H (0.0-0.2) /100WBC PT 12.2 (10.0-13.1) SEC INR 1.1 (0.9-1.1) Sodium 139 (135-145) mmol/L Potassium 4.2 (3.3-5.1) mmol/L Chloride 102 (96-108) mmol/L Carbon Dioxide 26 (22-29) mmol/L Anion Gap 15 (12-20) BUN 16 (9-16) mg/dL Creatinine 0.91 (0.5-1.4) mg/dL Estim Creat Clear Calc 65.2 Estimated GFR > 60 Random Glucose 91 D (60-115) mg/dL Calcium 9.1 (8.4-10.2) mg/dL Discharge Plan Discharge Clinical Impression: Epistaxis Cough Qualifiers: Cough type: acute Qualified Code(s): R05.1 - Acute cough Patient Disposition: Home, Self-Care Instructions: Acute Cough (ED), Nosebleed (ED) Additional Instructions: return to ED for any worsening symptoms or concerns labs, COVID and CXR normal Prescriptions: No Action atorvastatin 20 mg tablet 20 mg PO BEDTIME Qty: 90 3RF metformin 1,000 mg tablet 1,000 mg PO BID Qty: 180 3RF gabapentin 300 mg capsule 300 mg PO BEDTIME Qty: 90 3RF risperidone 1 mg tablet 1 mg PO BID Qty: 180 0RF sertraline 50 mg tablet 50 mg PO DAILY 90 Days Qty: 90 1RF carbidopa-levodopa 25-100 mg tablet 1.5 tab PO QID 90 Days Qty: 540 3RF mirtazapine 15 mg tablet,disintegrating 15 mg PO BEDTIME 90 Days Qty: 90 2RF divalproex 125 mg capsule, delayed rel sprinkle 500 mg PO BID 90 Days Qty: 720 2RF escitalopram oxalate 5 mg/5 mL solution 5 mg PO DAILY Qty: 240 3RF tamsulosin 0.4 mg capsule 0.8 mg PO BEDTIME Qty: 180 1RF (DME) THICK IT See Rx Instructions .Route .MEDSUPPLY Qty: 1 0RF Rx Instructions: As directed (DME) Prodigy No Coding Strip See Rx Instructions .Route Qty: 100 6RF Rx Instructions: Test 3 times daily topiramate [Topamax] 50 mg tablet 50 mg PO BID 90 Days Qty: 180 2RF aspirin [Adult Low Dose Aspirin] 81 mg tablet,delayed release (DR/EC) 81 mg PO DAILY 90 Days Qty: 90 3RF melatonin 3 mg Tablet 3 mg PO BEDTIME benztropine 1 mg tablet 0.5 mg PO BID lisinopril 20 mg tablet 20 mg PO DAILY 14 Days Qty: 14 0RF (DME) compress.stocking,knee,reg,med Misc See Rx Instructions .Route Qty: 2 0RF Rx Instructions: As directed 20-30 mm HG triamcinolone acetonide 0.5 % cream 1 appl topical BID 7 Days Qty: 60 0RF Rx Instructions: apply to red streaks on the leg , no open wounds Basaglar KwikPen U-100 Insulin 100 unit/mL (3 mL) insulin pen 10 unit subcut QPM lorazepam [Ativan] 0.5 mg tablet 0.5 mg PO DAILY PRN Basaglar KwikPen U-100 Insulin 100 unit/mL (3 mL) insulin pen 8 unit subcut DAILY@1600 Qty: 15 2RF glucose 4 gram tablet,chewable 4 g PO Q15M PRN (Reason: hypoglycemia) Qty: 90 0RF Rx Instructions: until symptoms of low blood sugar are controlled (DME) lancets [CareTouch Safety Lancets] 26 gauge misc See Rx Instructions .Route Qty: 100 0RF Rx Instructions: As directed ondansetron 4 mg tablet,disintegrating 4 mg PO Q8H PRN (Reason: nausea and vomiting) Qty: 20 0RF Referrals: Physician,Unknown J [Primary Care Provider] - (PCP if not better in 2 days)
--- NOTE | 2022-04-11 10:55 | PC.NURSE ---
[facility] s/p coughing fit which led to nose bleed which is now under control. Pt is A&O to baseline per prison staff. Pt states BLE pain at this time. Plan for labs and CXR, small amount of dried blood noted to bilateral nares. no active bleed at this time. Call fregoso within reach. Will continue to monitor.
[2022-04-11 11:12] LABS: MANUAL DIFF FLAG NO
[2022-04-11 11:14] LABS: Basophils Percent Auto 0.3 % (0-2); Eosinophils Absolute Auto 0.4 X10*3/uL (0.0-0.4); Eosinophils Percent Auto 6.2 % (0-4); Hematocrit 43.4 % (42.0-52.0); Hemoglobin 13.7 g/dl (14.0-18.0); Imm Gran Abs Auto 0.11 X10*3/uL (0.00-0.03); Imm Gran Pct Auto 1.8 % (0.0-0.4); Lymphocytes Absolute Auto 1.4 X10*3/uL (1.2-4.9); Lymphocytes Percent Auto 24.1 % (20-40); Mean Corpuscular HGB Conc 31.6 g/dl (31.0-36.0); Mean Corpuscular Hemoglobin 30.2 pg (27.0-33.0); Mean Corpuscular Volume 95.6 fL (80.0-98.0); Mean Platelet Volume 8.1 fL (9.4-12.4); Monocytes Absolute Auto 0.8 X10*3/uL (0.1-1.2); Monocytes Percent Auto 13.9 % (2-11); NRBC Pct Auto 0.3 /100WBC (0.0-0.2); Neutrophils Absolute Auto 3.2 x10*3/uL (2.0-8.3); Neutrophils Percent Auto 53.7 % (45-73); Platelet Count 179 X10*3/uL (160-400); Red Blood Count 4.54 X10*6/uL (4.60-5.80); Red Cell Distribution Width 14.1 % (11.0-16.0)
[2022-04-11 11:20] LABS: INTERNATIONAL NORM RATIO 1.1 (0.9-1.1); Prothrombin Time 12.2 SEC (10.0-13.1)
[2022-04-11 11:41] LABS: Anion Gap 15 (12-20); Blood Urea Nitrogen 16 mg/dL (9-16); Calcium 9.1 mg/dL (8.4-10.2); Carbon Dioxide 26 mmol/L (22-29); Chloride 102 mmol/L (96-108); Creatinine Clr Calc Pharmacy 65.2; Estimated Glomerular Filt Rate > 60; Glucose Random 91 mg/dL (60-115); Potassium 4.2 mmol/L (3.3-5.1); Sodium 139 mmol/L (135-145)
== END 2022-04-11 12:26 | disposition home or self-care (01) ==
PROVIDERS: Emergency Provider Emergency Medicine
DX: R04.0 Epistaxis (principal); R05.1 Acute cough; Z79.899 Other long term (current) drug therapy
CPT/HCPCS: 36415; 71045; 80048; 85025; 85610; 99283; 99284

== ENCOUNTER 2022-08-14 14:30 | Outpatient (AMB) | payer MEDICARE, MEDICAID, SELFPAY ==
--- NOTE | 2022-08-12 11:07 | A.OFFVIS_ITS ---
Intake Intake Visit Reasons: BPH Intake Note: Patient is present for BPH Follow Up Urology Medication: Tamsulosin Blood Thinner: Aspirin Caregiver states that he does use the bathroom he does urinate well during the day. She states that he does not sleep during the night frequently needs to urinate. Patient has minimal accidents. It Applications Analyst Required: No Accompanied by: caregiver Allergies perfume Allergy (Intermediate, Verified 10/09/23 14:14) ITCHING HPI HPI Comments History of Present Illness0 Details Ezekiel is a pleasant male. intermediate resident for schizophrenia, dementia, stroke. He seen for the following urologic conditions - lower lower urinary tract symptoms - recurrent UTI Accompanied by carer Refill medications 12 month follow-up Recurrent UTI Last documented UTI 2019 Klebsiella Pansensitive Lower urinary tract symptoms Combination medication terazosin 10 mg finasteride Incontinent Uses briefs Does have effectively emptying PFSH Medical History Buttock wound Nausea & vomiting Hospital discharge follow-up Confusion Urinary incontinence Weakness of both lower limbs Screening for eye condition Type 2 diabetes mellitus with hyperglycemia, without long-term current use of insulin Diabetes type 2, uncontrolled Unsteady gait Subungual hematoma of great toe Rash Bruising Annual physical exam Pedal edema Oropharyngeal dysphagia Occipital infarction Tubular adenoma of colon Type 2 diabetes mellitus with hyperglycemia Dysphagia Vitamin D deficiency Parkinson's disease Developmental delay, moderate Hypercholesteremia Gastroesophageal reflux disease Hypertension Metabolic encephalopathy Schizophrenia Depression BPH with obstruction/lower urinary tract symptoms Surgical History History of circumcision History of prostate surgery History of colonoscopy Family History Father Type II diabetes mellitus Mother Type II diabetes mellitus Social History Household Members: Other Housing: Other Housing Other:: ALF Alcohol intake: unknown Comment: pt is sleeping resp even and unlabored. Patient Tobacco Use Status: Never used Tobacco e-Cigarette/Vaping Use: Never Used Second Hand Smoke Exposure: No Advance Directives Date on File: 07/11/21 service: No Current occupational status: disabled Current occupational exposures/hazards: No Cognitive needs: Yes Hearing needs: No Vision needs: No Review of Systems Const Denies chills and Denies fever(s) Card Reports no additional complaints and Denies syncope Resp Denies cough GI Denies abdominal pain and Denies heartburn Reports as per HPI and Denies change in libido Neuro Denies syncope Psych Denies change in libido Endo Denies change in libido Physical Exam Const General: cooperative, healthy appearing, comfortable and no acute distress Orientation/consciousness: patient oriented x3 HEENT Face and sinus: Yes normal facial exam Mouth: moist mucous membranes Neck Neck: Yes normal visual inspection, Yes full ROM and Yes trachea midline Chest Chest palpation & inspection: normal inspection of the chest Resp Effort & Inspection: normal respiratory effort, able to speak in complete sentences and no respiratory distress GI Inspection: Yes normal to inspection Back/Spine/Pelvis Cervical Spine: normal cervical lordosis Thoracic/Lumbar Spine: thoracic and lumbar spine normal to inspection Skin General skin exam: no rashes or lesions noted Neuro General: patient oriented x3, gait normal, tone normal and moves all extremities Extrem General: Yes normal to inspection and Yes capillary refill normal Assessment & Plan Assessment & Plan (1) BPH with obstruction/lower urinary tract symptoms: Code(s): N40.1 - Benign prostatic hyperplasia with lower urinary tract symptoms; N13.8 - Other obstructive and reflux uropathy Plan 12 month follow-up Medications: New terazosin 10 mg PO BEDTIME 90 caps 3RF 90 days N40.1 - Benign prostatic hyperplasia with lower urinary tract symptoms, N13.8 - Other obstructive and reflux uropathy, N40.0 - Benign prostatic hyperplasia without lower urinary tract symptoms Discontinued tamsulosin Discontinued Reason: Doctor's Order 0.8 mg (2 x 0.4 mg) PO BEDTIME 180 caps 3RF Patient Instructions: Imaging studies, laboratory and physical exam results were discussed and reviewed in detail. No major barriers to patient understanding were identified. An opportunity to ask questions regarding the treatment plan was provided. All questions were answered. The patient expressed understanding and agreement with the above treatment plan. The patient is aware they should contact our office by phone for worsening of their current condition or the appearance of new urologic symptoms. Compliance is encouraged with any medications and followup testing that is ordered. It is a privilege to participate in the urologic care of your patient. If you have any questions or concerns regarding treatment for the above conditions, or other urologic issues, please do not hesitate to contact me. The office telephone contact is [phone]. This note is constructed using voice recognition software. While every effort has been made to ensure accuracy project structural engineer errors may have been included. Yours sincerely, Dr Zan Andrews MD, [facility] - Urology Providers of Expert, Compassionate Care for the Genitourinary System Coding Level of Care Code Est Pt Level 4 (32954) Diagnoses BPH with obstruction/lower urinary tract symptoms N40.1; N13.8
== END 2022-08-14 15:12 | disposition home or self-care (01) ==
LOC: HO.HUSH 14:30
PROVIDERS: PCP Internal Medicine; Visit Provider Urology
DX: N40.1 Benign prostatic hyperplasia with lower urinary tract symptoms (principal); N13.8 Other obstructive and reflux uropathy
CPT/HCPCS: 99214; 99499

== ENCOUNTER → 2022-08-14 14:30 | Outpatient (BNVA) | payer MEDICARE, MEDICAID, SELFPAY | PROVIDERS: PCP Internal Medicine; Visit Provider Urology | DX: N40.1 Benign prostatic hyperplasia with lower urinary tract symptoms (principal); N13.8 Other obstructive and reflux uropathy | CPT/HCPCS: 99212 ==

== ENCOUNTER 2022-10-31 10:43 | Outpatient (REF) | payer MEDICARE, MEDICAID, SELFPAY ==
[2022-10-31 14:01] LABS: MANUAL DIFF FLAG NO
[2022-10-31 14:09] LABS: Basophils Percent Auto 0.4 % (0-2); Eosinophils Absolute Auto 0.3 X10*3/uL (0.0-0.4); Eosinophils Percent Auto 5.2 % (0-4); Hematocrit 43.5 % (42.0-52.0); Hemoglobin 14.1 g/dl (14.0-18.0); Imm Gran Abs Auto 0.08 X10*3/uL (0.00-0.03); Imm Gran Pct Auto 1.4 % (0.0-0.4); Lymphocytes Absolute Auto 1.3 X10*3/uL (1.2-4.9); Mean Corpuscular HGB Conc 32.4 g/dl (31.0-36.0); Mean Corpuscular Hemoglobin 30.1 pg (27.0-33.0); Mean Corpuscular Volume 92.8 fL (80.0-98.0); Mean Platelet Volume 8.9 fL (9.4-12.4); Monocytes Absolute Auto 0.9 X10*3/uL (0.1-1.2); Monocytes Percent Auto 16.7 % (2-11); Neutrophils Percent Auto 53.3 % (45-73); Platelet Count 202 X10*3/uL (160-400); Red Blood Count 4.69 X10*6/uL (4.60-5.80); Red Cell Distribution Width 13.9 % (11.0-16.0); White Blood Count 5.6 X10*3/uL (4.8-10.8)
[2022-10-31 14:35] LABS: Alanine Aminotransferase 12 U/L (0-40); Alkaline Phosphatase 69 U/L (39-117); Anion Gap 17 (12-20); Aspartate Amino Transferase 10 U/L (5-37); Bilirubin Total 0.4 mg/dL (0.0-1.0); Blood Urea Nitrogen 16 mg/dL (9-16); Calcium 9.6 mg/dL (8.4-10.2); Carbon Dioxide 23 mmol/L (22-29); Chloride 103 mmol/L (96-108); Estimated Glomerular Filt Rate > 60; Glucose Random 148 mg/dL (60-115); Potassium 4.6 mmol/L (3.3-5.1); Sodium 138 mmol/L (135-145); Total Protein 6.4 g/dL (6.5-8.0)
== END 2022-10-31 10:44 | disposition home or self-care (01) ==
LOC: HO.HMGCLDS 10:43
PROVIDERS: PCP Internal Medicine; Visit Provider Internal Medicine
DX: F99 Mental disorder, not otherwise specified (principal); N13.8 Other obstructive and reflux uropathy; N40.1 Benign prostatic hyperplasia with lower urinary tract symptoms; R41.0 Disorientation, unspecified; E11.65 Type 2 diabetes mellitus with hyperglycemia
CPT/HCPCS: 36415; 80053; 85025

== ENCOUNTER 2022-11-29 10:41 | Outpatient (REF) | payer MEDICARE, MEDICAID, SELFPAY ==
--- NOTE | ~2022-11-29 | FL_ITS ---
EXAMINATION: XR BARIUM SWALLOW CLINICAL INFORMATION: Dysphagia COMPARISON: None TECHNIQUE: Routine modified barium swallow was performed with the patient in a left lateral seated position. The patient took thin, pureed and solid food consistencies of barium without difficulty. FINDINGS: The patient demonstrated normal oral bolus formation. There was a no significant delay in the swallow trigger mechanism. There is mild retention of the solid consistency in the vallecula. This clears with additional swallows of thin liquid. There was good contraction and elevation of the soft palate without evidence of nasopharyngeal reflux. There was good anterior-superior excursion of the laryngeal-hyoid complex with good posterior-inferior tipping of the epiglottis. No cricopharyngeal abnormalities were noted. The pharynx and cervical spine have a normal appearance. No aspiration or laryngeal penetration was seen with any oral intake. FLUOROSCOPY TIME: 1.2 minutes DOSE AREA PRODUCT: 1.350 Gy-cm2 (temple[place]-centimeter squared) FL/FL barium swallow modified IMPRESSION: 1. No evidence of aspiration or laryngeal penetration. 2. Mild retention of solids in the vallecula. No additional significant abnormality of the oral and pharyngeal phase of swallowing as described. 3. Please see speech pathology report for further information and diet recommendations.
--- NOTE | 2022-12-02 15:45 | MHC.SL.IMP ---
Date of Plan of Treatment: 11/29/22 Onset of Symptoms/Illness: 07/16/18 Date Treatment Started: 11/29/22 Admitting Diagnosis: MEDICAL HISTORY: Medical History (Updated 11/04/22 @ 14:36 by EVANGELISTA Gresham) Annual physical exam BPH with obstruction/lower urinary tract symptoms Bruising Confusion Depression Developmental delay, moderate Diabetes type 2, uncontrolled Dysphagia Gastroesophageal reflux disease Hospital discharge follow-up Hypercholesteremia Hypertension Metabolic encephalopathy Nausea & vomiting Occipital infarction Oropharyngeal dysphagia Parkinson's disease Pedal edema Rash Schizophrenia Screening for eye condition Subungual hematoma of great toe Tubular adenoma of colon Type 2 diabetes mellitus with hyperglycemia Type 2 diabetes mellitus with hyperglycemia, without long-term current use of insulin Unsteady gait Urinary incontinence Vitamin D deficiency Weakness of both lower limbs Surgical History History of circumcision History of colonoscopy History of prostate surgery Primary Speech & Language Diagnosis: R13.12 Oropharyngeal Phase Dysphagia Reason for Today's Visit: 28475 Modified Barium Swallow Study Pre-evaluation Dietary Consistencies: Grnd/Mech Altered (NDD2) Pre-evaluation Liquid Consistency: Thin Pre-evaluation Medication Administration: Unknown Medical History: [place], [place] Modified Barium Swallow Study Fluoroscopic Evaluation of Swallowing Function CPT Code 56696 Evaluation Year: 2022 Reason for Study: History of dysphagia Referring Physician: Yandy NAIDU Evaluating Clinician: Padmaja Benjamin MA, CCC-GROUP SALES REPRESENTATIVE Study Number: 1 Patient Name: Ezekiel Huston Status: Outpatient, Wheelchair Age: 72 Gender: Male MEDICAL HISTORY: Medical History (Updated 11/04/22 @ 14:36 by EVANGELISTA Gresham) Annual physical exam BPH with obstruction/lower urinary tract symptoms Bruising Confusion Depression Developmental delay, moderate Diabetes type 2, uncontrolled Dysphagia Gastroesophageal reflux disease Hospital discharge follow-up Hypercholesteremia Hypertension Metabolic encephalopathy Nausea & vomiting Occipital infarction Oropharyngeal dysphagia Parkinson's disease Pedal edema Rash Schizophrenia Screening for eye condition Subungual hematoma of great toe Tubular adenoma of colon Type 2 diabetes mellitus with hyperglycemia Type 2 diabetes mellitus with hyperglycemia, without long-term current use of insulin Unsteady gait Urinary incontinence Vitamin D deficiency Weakness of both lower limbs Surgical History History of circumcision History of colonoscopy History of prostate surgery Current (pre-evaluation) Intake/Diet: Route: PO Diet Grade: Minced and moist Liquid Consistencies: Thin Pre-Study Functional Oral Intake Scale (FOIS): 5- Total oral intake of multiple consistencies requiring special preparation Pain: None reported at time of study SUBJECTIVE: Pt is a 72 year old male with history of developmental delay, dysphagia, GERD, metabolic encephalopathy, occipital infarction, Parkinson?s disease, and schizophrenia. Pt was referred for a modified barium swallow study [facility] Pt was accompanied to this exam by assisted staff, who report pt was coughing and choking during meals. They requested for a repeat-MBSS to be done to evaluate pt?s swallow and to determine if any changes need to be made to his diet textures. Pt is currently on a minced diet at baseline. Upon review of medial record, pt had previous MBSS done at [facility] [place] on [place]/16/18, which showed no aspiration or penetration. Pt was recommended a ground/mechanically altered diet with thin liquids. Oral Motor Exam Mouth Occlusion: Normal Oral-Facial Teeth Characteristics: Edentulous Tongue Size: Normal Is patient able to manage secretions?: Yes Food and Liquid Trials: Oral Impairment: Lip Closure: 1=Interlabial escape; no progression to anterior tip Oral Impairment: Tongue Control During Bolus Hold: 2=Posterior escape of less than half of bolus Oral Impairment: Bolus Preparation/Mastication: 2=Disorganized chewing/mashing with solid pieces of bolus Oral Impairment: Bolus Transport/Lingual Motion: 2=Slowed tongue motion Oral Impairment: Oral Residue: 2=Residue collection on oral structures Oral Impairment:Initiation of Pharyngeal Swallow: 2=Bolus head at posterior laryngeal surface of epiglottis Pharyngeal Impairment: Soft Palate Elevation: 0=No bolus between soft palate (SP)/pharyngeal wall (PW) Pharyngeal Impairment: Laryngeal Elevation: 1=Partial thyroid cartilage/arytenoids to epiglottic petiole movement Pharyngeal Impairment: Anterior Hyoid Excursion: 1=Partial anterior movement Pharyngeal Impairment: Epiglottic Movement: 0=Complete inversion Pharyngeal Impairment: Laryngeal Vestibular Closure:: 0=Complete: no air/contrast in laryngeal vestibule Pharyngeal Impairment: Pharyngeal Stripping Wave: 1=Present: diminished Pharyngeal Impairment: Pharyngeal Contraction: Did not test Pharyngeal Impairment: Pharyngoesophageal Segment Openin=Complete distension and complete duration: no obstruction of flow Pharyngeal Impairment: Tongue Base (TB) Retraction: 1=Trace column of contrast/air between TB and posterior PW Pharyngeal Impairment: Pharyngeal Residue: 2=Collection of residue within or on pharyngeal structures Pharyngeal Impairment: Esophageal Clearance Upright Position: Did not test Impressions and Recommendations OBJECTIVE: Time-out: performed at 02:40 Evaluation Start: 02:30; Stop: 02:33 Patient Positioning: Seated 70-90 degrees Viewing Planes: LATERAL ONLY Contrast: MBSImP? Standardized Protocol using commercially prepared, standardized Barium viscosities, including: Varibar? THIN LIQUID (40% w/v, <15 cps) , 1/2 Shortbread Cookie (1 x1 x.25 ) MBSImP ID: [id number] MBSImP Results: Lip closure for intraoral bolus containment resulted in interlabial escape, without progression to the anterior lip. Tongue control during bolus hold resulted in posterior escape of less than half of the bolus. Bolus preparation and mastication demonstrated disorganized chewing/mashing with solid pieces of the bolus unchewed. Bolus transport/lingual motion was with slowed tongue motion. Oral residue was a collection on oral structures. Initiation of the pharyngeal swallow occurred as the bolus head was at the posterior laryngeal surface of the epiglottis. Soft palate elevation resulted in no bolus between the soft palate and the pharyngeal wall. Laryngeal elevation was decreased, with partial superior movement of the thyroid cartilage/partial approximation of the arytenoids to the epiglottic petiole. Anterior hyoid excursion demonstrated partial anterior movement. Epiglottic movement resulted in complete inversion. Laryngeal vestibular closure was complete, as indicated by no air or contrast within the laryngeal vestibule at the height of the swallow. Pharyngeal stripping wave was present, but diminished. Pharyngeal contraction could not be determined due to logistical reasons not related to physiologic impairment. Pharyngoesophageal segment opening was completely distended for complete duration with no obstruction of bolus flow. Tongue base retraction allowed a trace column of contrast or air between the retracted tongue base and the posterior pharyngeal wall. Pharyngeal residue was a collection of residue within or on pharyngeal structures. Esophageal clearance in the upright position could not be assessed due to logistical reasons not related to physiologic impairment. Oral Impairment Score: 10 Pharyngeal Impairment Score: 5 (absence of score, component 13) Esophageal Impairment Score: --- (absence of score, component 17) Laryngeal Penetration and Aspiration: Neither penetration nor aspiration was observed in today's study with Jessica, Thin. ASSESSMENT: This exam was conducted by a multidisciplinary team, which included a speech pathologist, radiologist, and doctor of radiology. Pt was fed with 1:1 assistance during this exam. Pt trialed the following liquid and solid consistencies: thin liquid barium by cup, pureed solid (mixture applesauce with barium paste), ground solid (mixture chicken salad with barium paste), and regular solid (Norma Doone cookie coated with barium paste). There was mild interlabial escape of bolus, with no progression to anterior lip. Posterior lingual movements were mildly delayed and slowed for the transport of bolus. There was premature posterior escape of trace amount of liquid, which collected in the valleculae prior to initiation of productive lingual movement. Mastication was mildly slowed with ground consistency. Pt was observed to suck on bite of cookie, with prolonged, disorganized mashing. Mild oral residue was cleared with subsequent swallows. Pharyngeal swallow trigger initiated as bolus head reached the posterior laryngeal surface of the epiglottis. There was no nasopharyngeal reflux. Partial laryngeal elevation with partial anterior hyoid excursion. Complete epiglottic inversion and complete laryngeal vestibular closure. There was mild retention in the valleculae with trace residuals on the tongue base and in the pyriform sinuses. Pharyngeal residue was reduced with sips of liquid. There was no obstruction of flow through the pharyngoesophageal segment opening. No evidence of aspiration or penetration during this exam. Liquid Intake Recommendation: Thin Liquid Intake Strategies: Small Sips, No Straws Dietary Recommendations: Grnd/Mech Altered (NDD2) Medication Administration: Crushed with Puree Please contact the pharmacy regarding appropriate crushable or liquid drug formulations that are available whenever modified delivery is recommended. Compensatory Strategies Recommended: Sitting Upright (90 deg), No Straw, Small Bites and Sips, Alternate Liquids/Solids, Rate of Ingestion Change, Oral Check, Avoid Specific Foods Supervision during eating and or drinking: Total Assistance (1:1) Recommendation for Speech Therapy: Text Comment: PLAN: Intake Recommendations: Route: PO Diet Grade: Mechanical Soft Liquid Consistencies: Thin Post-Study Functional Oral Intake Scale (FOIS): 5- Total oral intake of multiple consistencies requiring special preparation There was no evidence of aspiration or penetration during this exam. There was mild pharyngeal retention which was effectively reduced with subsequent sips of liquid. Continue to recommend GROUND/MECHANICALLY ALTERED (NDD2) solids due to pt being edentulous, with THIN liquids. Pt requires total 1:1 assistance feeding, close monitoring and cuing for ASPIRATION PRECAUTIONS: -Take small bites of food -Moisten food with sauces and gravies, ensuring sauces are mixed and blended in well with food -Cue pt to chew food well -Avoid hard to chew solids, sticky textures, and mixed consistencies -Follow each bite with a dry swallow to promote pharyngeal clearance -Alternate bites of food with sips of liquid -Ensure oral cavity is cleared before giving more bites -Take small, individual sips of liquid -Avoid taking consecutive sips -Avoid the use of straws -Maintain upright 90 degree position while eating and drinking and for at least 45 minutes afterwards Recommend pt and caregivers to continue monitoring pt?s dysphagia. If there are any changes or worsening of symptoms, consult with PCP, at which point a re-evaluation may be indicated. Therapy Recommendations: Therapy will be discontinued Prognosis for Improvement: The prognosis for the patient to meet nutritional needs by mouth is good based on degree of impairment. Clinician - Supplemental, Miscellaneous Communication: It is important to note MBSS objective studies are snapshots in time and Patient function might vary with factors such as time of day or concomitant medical conditions. For this reason, the final treatment plan for this patient should rest with their medical care team. Additional recommendations should be considered with the totality of the Patient in mind. Thank for the opportunity to participate in the care of this patient. If you have any questions about the content of this report, please contact the [facility] at [facility]. Education: Education regarding findings from today's study and plans for therapy were provided to Patient and family/caregiver through Verbal Instruction. Understanding was expressed by the Patient and family/caregiver. [employer] Clinician/Clinical Fellow: No Supervisory Statement: N/A Speech Language Pathologist: Padmaja Benjamin M.A., CCC-GROUP SALES REPRESENTATIVE
== END 2022-11-29 10:42 | disposition home or self-care (01) ==
LOC: HO.XRAY 10:41
PROVIDERS: PCP Internal Medicine; Visit Provider Nurse Practitioner Family
DX: R13.10 Dysphagia, unspecified (principal)
CPT/HCPCS: 74230; 92611

== ENCOUNTER 2023-01-09 11:08 | Emergency (ER) | payer MEDICARE, MEDICAID, SELFPAY ==
--- NOTE | ~2023-01-09 | XR_ITS ---
EXAMINATION: XR CHEST CLINICAL INFORMATION: Mental status change COMPARISON: April 11, 2022 TECHNIQUE: AP portable view of the chest was obtained. FINDINGS: There are small lung volumes present. There appears to be some basilar atelectasis present at the left lung base. No pneumothorax or pleural effusion. Heart normal size. No evidence of pulmonary edema. There is scoliosis of the thoracic spine convex right. XR/XR chest 1V IMPRESSION: No significant acute parenchymal disease.
[2023-01-09 11:13] VITALS: BP 118/71; BP 137/96; PULSE 88; PULSE 92; RESP 16; TEMP 36.7; O2SAT 97; O2SAT 98; BMI 28.3
--- NOTE | 2023-01-09 11:22 | PC.NURSE ---
Pt is alert/disoriented. With manager medical affairs pt unable to answers questions appropriately and noted to repeat self and asking for food. BP stable at this time. Does not appear lethargic. Unable to fully assess neuros as pt unable to follow commands and left hand clenched with mask in hand. Skin pwd.
--- NOTE | 2023-01-09 11:54 | ECG_ITS ---
Test Reason : HYPOTENSION Blood Pressure : / mmHG Vent. Rate : 084 BPM Atrial Rate : 084 BPM P-R Int : 142 ms QRS Dur : 096 ms QT Int : 350 ms P-R-T Axes : 034 -22 001 degrees QTc Int : 413 ms Normal sinus rhythm Incomplete right bundle branch block Borderline ECG When compared with ECG of 02-DEC-2021 10:46, Incomplete right bundle branch block is now Present Referred By: Zenon Caceres Electronically Signed By:RAFAELA SOUTH MD
[2023-01-09 12:25] LABS: MANUAL DIFF FLAG NO
[2023-01-09 12:27] LABS: Basophils Percent Auto 0.3 % (0-2); Eosinophils Absolute Auto 0.2 X10*3/uL (0.0-0.4); Eosinophils Percent Auto 2.4 % (0-4); Hematocrit 40.3 % (42.0-52.0); Hemoglobin 13.2 g/dl (14.0-18.0); Imm Gran Abs Auto 0.08 X10*3/uL (0.00-0.03); Imm Gran Pct Auto 1.3 % (0.0-0.4); Lymphocytes Absolute Auto 1.5 X10*3/uL (1.2-4.9); Mean Corpuscular HGB Conc 32.8 g/dl (31.0-36.0); Mean Corpuscular Hemoglobin 30.1 pg (27.0-33.0); Mean Corpuscular Volume 91.8 fL (80.0-98.0); Mean Platelet Volume 8.2 fL (9.4-12.4); Monocytes Absolute Auto 1.1 X10*3/uL (0.1-1.2); Neutrophils Absolute Auto 3.5 x10*3/uL (2.0-8.3); Platelet Count 171 X10*3/uL (160-400); Red Blood Count 4.39 X10*6/uL (4.60-5.80); Red Cell Distribution Width 14.4 % (11.0-16.0); White Blood Count 6.3 X10*3/uL (4.8-10.8)
--- NOTE | 2023-01-09 12:36 | PHA.MEDREC ---
Pharmacy Consult ? Medication Reconciliation Pharmacy has completed the medication reconciliation. Med rec complete using list provided by [facility]
[2023-01-09 12:37] LABS: Ammonia 31 umol/L (13-55)
[2023-01-09 12:40] VITALS: BP 113/70; PULSE 80; RESP 16
[2023-01-09 12:43] LABS: Appearance Urine Clear; Color Urine Yellow; Glucose Urine UA Negative (Negative); Leukocyte Esterase Urine Trace (Negative); Nitrite Urine Negative (Negative); PH 6.5 (5.0-9.0); UMIC TRIGGER UACC YES; Urine Blood Negative (Negative); Urine Ketones Trace mg/dL (Negative); Urine Protein Negative (Neg-Trace)
[2023-01-09 12:48] LABS: COVID-19 Test Negative (Negative); IDNOW Serial# BCCEAD1C
[2023-01-09 12:48] LABS: Bacteria Urine None Seen (None Seen); RBC Urine 0-2 /HPF (0-2); Squamous Epithelial Cell Urine 0-2 /HPF (0-2); WBC Urine 0-5 /HPF (0-5)
[2023-01-09 12:51] LABS: Alanine Aminotransferase 13 U/L (0-40); Albumin Level 3.7 g/dL (3.5-5.0); Alkaline Phosphatase 59 U/L (39-117); Anion Gap 18 (12-20); Aspartate Amino Transferase 15 U/L (5-37); Bilirubin Direct 0.1 mg/dL (0.0-0.5); Bilirubin Total 0.4 mg/dL (0.0-1.0); Blood Urea Nitrogen 22 mg/dL (9-16); Calcium 9.4 mg/dL (8.4-10.2); Carbon Dioxide 23 mmol/L (22-29); Chloride 100 mmol/L (96-108); Creatinine Clr Calc Pharmacy 53.9; Estimated Glomerular Filt Rate 57; Glucose Random 114 mg/dL (60-115); Lipase 17 U/L (8-78); Potassium 4.7 mmol/L (3.3-5.1); Sodium 136 mmol/L (135-145); Total Protein 5.9 g/dL (6.5-8.0)
[2023-01-09 12:52] LABS: B Type Natriuretic Peptide 16 pg/mL (<100)
[2023-01-09 12:58] LABS: Troponin-I High Sensitivity < 2.7 ng/L (<3.5-35.0)
[2023-01-09 13:42] VITALS: BP 150/81; PULSE 82; RESP 16; TEMP 35.7; O2SAT 98
--- NOTE | 2023-01-09 13:46 | ED.GENADULT ---
HPI - General Adult General Chief complaint: Recheck/Abnormal Lab/Rx Stated complaint: LETHARGIC, LOW BP Time Seen by Provider: 01/09/23 11:51 Source: patient, EMS and other (Caregiver) Mode of arrival: EMS Limitations: no limitations History of Present Illness HPI narrative: A 72-year-old male from retirement, patient was sent from retirement for evaluation of hypotension and patient was lethargic at the retirement. Patient was transported by EMS found to have normal blood pressure, on arrival to the ED patient had a normal blood pressure, caregiver from retirement stated that the patient is at his baseline now. Patient is non historian history was obtained from custodial note, EMS, and caregiver at the bedside. Related Data Home Medications Medication Instructions Recorded Confirmed dulaglutide 0.75 mg/0.5 mL 0.75 mg subcut FR 08/12/22 01/09/23 subcutaneous pen injector (Trulicity) lancets 28 gauge ([employer] Twist #100 ea 08/12/22 11/04/22 Top Lancet) acetaminophen 650 mg 650 mg PO Q4H PRN Fever Or Pain 01/09/23 01/09/23 tablet,extended release benztropine 0.5 mg tablet 0.5 mg PO BID 01/09/23 01/09/23 insulin glargine 100 unit/mL (3 8 unit subcut DAILY@1530 01/09/23 01/09/23 mL) subcutaneous pen (Basaglar KwikPen U-100 Insulin) lorazepam 0.5 mg tablet 0.5 mg PO BID PRN Agitation 01/09/23 01/09/23 risperidone 1 mg tablet 1 mg PO DAILY 01/09/23 01/09/23 Previous Rx's Medication Instructions Recorded metformin 1,000 mg tablet 1,000 mg PO BID #180 tabs 08/10/21 gabapentin 300 mg capsule 300 mg PO BEDTIME #90 caps 08/21/21 divalproex 125 mg capsule,delayed 500 mg PO BID 90 days #720 caps 01/01/22 release sprinkle mirtazapine 15 mg disintegrating 15 mg PO BEDTIME 90 days #90 tabs 01/01/22 tablet escitalopram oxalate 5 mg/5 mL 5 mg (5 mL) PO DAILY #240 mL 01/08/22 oral solution lancets 26 gauge ([employer] Safety #100 ea 01/17/22 Lancets) THICK IT #1 ea 02/01/22 compress.stocking,knee,reg,med #2 ea 04/05/22 aspirin 81 mg chewable tablet 81 mg PO DAILY #90 tabs 08/06/22 (Aspirin Childrens) lancets 30 gauge (Easy Touch #3 boxes 08/06/22 Safety Lancets) lisinopril 20 mg tablet 20 mg PO DAILY 90 days #90 tabs 08/06/22 melatonin 3 mg tablet 3 mg PO BEDTIME #90 tabs 08/06/22 topiramate 50 mg tablet (Topamax) 50 mg PO BID 90 days #180 tabs 08/06/22 blood sugar diagnostic (Prodigy No #100 ea 08/08/22 Coding strips) PRODIGY LANCET #100 ea 08/09/22 terazosin 10 mg capsule 10 mg PO BEDTIME 90 days #90 caps 08/19/22 magnesium hydroxide 2,400 mg/10 mL 30 ml PO DAILY PRN constipation 09/06/22 oral suspension (Milk Of Magnesia #1,000 mL Concentrated) atorvastatin 40 mg tablet 40 mg PO BEDTIME #30 tabs 09/13/22 BRIEF LArge #100 ea 11/21/22 carbidopa 25 mg-levodopa 100 mg 1.5 tab PO QID #168 tabs 11/27/22 tablet Allergies Allergy/AdvReac Type Severity Reaction Status Date / Time perfume Allergy Intermediate ITCHING Verified 11/21/22 11:31 Review of Systems Review of Systems: All other systems are reviewed and are negative Constitutional: Reports as per HPI and Reports no additional constitutional complaints Eyes: Reports as per HPI and Reports no additional eye complaints Reports system reviewed and no additional complaints, except as documented Cardiovascular: Reports as per HPI and Reports no additional cardiovascular complaints Respiratory: Reports as per HPI and Reports no additional respiratory complaints Gastrointestinal: Reports as per HPI and Reports no additional gastrointestinal complaints Genitourinary: Reports no additional female genitourinary complaints Musculoskeletal: Reports no additional musculoskeletal complaints Skin/Breast: Reports system reviewed and no additional complaints, except as docu Psychiatric: Reports no additional psychiatric complaints Endocrine: Reports no additional endocrine complaints Hematologic/Lymphatic: Reports no additional hematologic/lymphatic complaints Allergic/Immunologic: Reports no additional allergic/immunologic complaints Reports system reviewed and no additional complaints, except as documented and Reports Abnormal speech present [facility] Past Medical History Medical History Annual physical exam BPH with obstruction/lower urinary tract symptoms Bruising Confusion Depression Developmental delay, moderate Diabetes type 2, uncontrolled Dysphagia Gastroesophageal reflux disease Hospital discharge follow-up Hypercholesteremia Hypertension Metabolic encephalopathy Nausea & vomiting Occipital infarction Oropharyngeal dysphagia Parkinson's disease Pedal edema Rash Schizophrenia Screening for eye condition Subungual hematoma of great toe Tubular adenoma of colon Type 2 diabetes mellitus with hyperglycemia Type 2 diabetes mellitus with hyperglycemia, without long-term current use of insulin Unsteady gait Urinary incontinence Vitamin D deficiency Weakness of both lower limbs Surgical History History of circumcision History of colonoscopy History of prostate surgery Family History Family History Father Type II diabetes mellitus Mother Type II diabetes mellitus Social History Social History Household Members: Other Housing: Other Housing Other:: LONG-TERM Alcohol intake: never Patient Tobacco Use Status: Never used Tobacco Smoked in Last 30 Days: No e-Cigarette/Vaping Use: Never Used Second Hand Smoke Exposure: No Use of substances other than those prescribed or required for medical reasons: No Advance Directives: Yes Advance Directives on File: Yes Advance Directives Date on File: 07/11/21 service: No Current occupational status: disabled Current occupational exposures/hazards: No Cognitive needs: Yes Hearing needs: No Vision needs: No Physical Exam ED Vital Signs: Vital Signs - 24 hr 01/09/23 11:13 01/09/23 12:40 01/09/23 13:42 Temperature 98.1 F 96.2 F L Pulse Rate 88 80 82 Respiratory Rate 16 16 16 Blood Pressure 118/71 113/70 150/81 H Pulse Oximetry 98 98 Oxygen Delivery Method Room Air Room Air BMI result Body Mass Index 28.3 Vital signs have been reviewed as appeared to be correct. Blood pressure normal. Heart rate normal. Respiration rate normal. Temperature normal. Oxygen saturation normal. Appearance: Alert. Oriented X3. No acute distress. Head: Normal external exam. Normocephalic. Atraumatic. No Maloney signs noted. No raccoon eyes noted Eyes: PERRLA. EOMI. Conjunctiva and sclera normal. Eyelids normal. ENT: TM's Normal. Pharynx normal. Uvula midline. Moist mucous membranes. No trismus noted. No drooling noted. No muffled voice noted. Neck: Normal inspection. Neck supple. FROM. No adenopathy. Thyroid Normal. No meningeal signs. No neck mass noted. CVS: Normal heart rate and rhythm. Heart sound normal. No murmurs noted. Pulses normal throughout. Respiratory: No respiratory distress. Painless inspiration. Breath sounds normal. No wheezes/rales/rhonchi noted. Chest nontender. No accessory muscle usage noted or decreased air movement noted. Abdomen: Soft and nontender. Bowel sounds normal in all 4 quadrants. No distention noted. No organomegaly noted. No visible injury noted. Back: No CVA tenderness. Full range of motion noted. Skin: Skin warm and dry. Normal skin color. Normal skin turgor. No rashes/lesions/lacerations noted. Extremities: No lower extremity edema. Extremities exhibit normal range of motion. Extremities nontender. Neuro: Oriented X 3. Cranial nerve exam: II-XII are grossly intact No motor deficit. No sensory deficit. Reflexes normal. Course Course Course Narrative: This 72-year-old male with intellectual disability came in from retirement for evaluation of low blood pressure after he had his a.m. medication at the retirement including lisinopril, patient is normotensive while he is course in the ED, had unremarkable labs, no source of infection was detected. Patient stable to be discharged back to the retirement. Medical Decision Making Differential Diagnosis Differential Diagnoses: The differential diagnosis associated with the presentation includes (Sepsis, pneumonia, UTI, dehydration, severe anemia.) Admission/Observation Consideration of admission/observation: Escalation of care including admission/observation considered Lab Data MDM Lab Attestation statement: I reviewed the patient's lab results. 01/09/23 12:16 01/09/23 12:16 Labs: Lab Results 01/09/23 01/09/23 01/09/23 Range/Units 12:16 12:16 12:16 WBC 6.3 (4.8-10.8) X10*3/uL RBC 4.39 L (4.60-5.80) X10*6/uL Hgb 13.2 L (14.0-18.0) g/dl Hct 40.3 L (42.0-52.0) % MCV 91.8 (80.0-98.0) fL MCH 30.1 (27.0-33.0) pg MCHC 32.8 (31.0-36.0) g/dl RDW 14.4 (11.0-16.0) % Plt Count 171 (160-400) X10*3/uL MPV 8.2 L (9.4-12.4) fL Immature Gran % (Auto) 1.3 H (0.0-0.4) % Neut % (Auto) 55.0 (45-73) % Lymph % (Auto) 24.0 (20-40) % [place] % (Auto) 17.0 H (2-11) % Eos % (Auto) 2.4 (0-4) % Baso % (Auto) 0.3 (0-2) % Lymph # (Auto) 1.5 (1.2-4.9) X10*3/uL [place] # (Auto) 1.1 (0.1-1.2) X10*3/uL Eos # (Auto) 0.2 (0.0-0.4) X10*3/uL Baso # (Auto) 0.0 (0.0-0.2) X10*3/uL Abs Immat Gran (auto) 0.08 H (0.00-0.03) X10*3/uL Absolute Neuts (auto) 3.5 (2.0-8.3) x10*3/uL Absolute Nucleated RBC 0.000 (0.0-0.012) X10*3/uL Nucleated RBC % (auto) 0.0 (0.0-0.2) /100WBC Sodium 136 (135-145) mmol/L Potassium 4.7 (3.3-5.1) mmol/L Chloride 100 (96-108) mmol/L Carbon Dioxide 23 (22-29) mmol/L Anion Gap 18 (12-20) BUN 22 H (9-16) mg/dL Creatinine 1.25 (0.5-1.4) mg/dL Estim Creat Clear Calc 53.9 Estimated GFR 57 Random Glucose 114 (60-115) mg/dL Calcium 9.4 (8.4-10.2) mg/dL Total Bilirubin 0.4 (0.0-1.0) mg/dL Direct Bilirubin 0.1 (0.0-0.5) mg/dL AST 15 (5-37) U/L ALT 13 (0-40) U/L Alkaline Phosphatase 59 (39-117) U/L Ammonia 31 (13-55) umol/L Troponin I High Sens (<3.5-35.0) ng/L B-Natriuretic Peptide (<100) pg/mL Total Protein 5.9 L (6.5-8.0) g/dL Albumin 3.7 (3.5-5.0) g/dL Lipase 17 (8-78) U/L Urine Color Urine Appearance Urine pH (5.0-9.0) Ur Specific [place] (1.005-1.025) Urine Protein (Neg-Trace) mg/dL Urine Glucose (UA) (Negative) mg/dL Urine Ketones (Negative) mg/dL Urine Blood (Negative) Urine Nitrite (Negative) Ur Leukocyte Esterase (Negative) Urine RBC (0-2) /HPF Urine WBC (0-5) /HPF Ur Squamous Epith Cells (0-2) /HPF Urine Bacteria (None Seen) Hyaline Casts (0-2) /LPF COVID-19 (MICHELLE) (Negative) COVID-19 Clin Com 01/09/23 01/09/23 01/09/23 Range/Units 12:16 12:16 12:17 WBC (4.8-10.8) X10*3/uL RBC (4.60-5.80) X10*6/uL Hgb (14.0-18.0) g/dl Hct (42.0-52.0) % MCV (80.0-98.0) fL MCH (27.0-33.0) pg MCHC (31.0-36.0) g/dl RDW (11.0-16.0) % Plt Count (160-400) X10*3/uL MPV (9.4-12.4) fL Immature Gran % (Auto) (0.0-0.4) % Neut % (Auto) (45-73) % Lymph % (Auto) (20-40) % [place] % (Auto) (2-11) % Eos % (Auto) (0-4) % Baso % (Auto) (0-2) % Lymph # (Auto) (1.2-4.9) X10*3/uL [place] # (Auto) (0.1-1.2) X10*3/uL Eos # (Auto) (0.0-0.4) X10*3/uL Baso # (Auto) (0.0-0.2) X10*3/uL Abs Immat Gran (auto) (0.00-0.03) X10*3/uL Absolute Neuts (auto) (2.0-8.3) x10*3/uL Absolute Nucleated RBC (0.0-0.012) X10*3/uL Nucleated RBC % (auto) (0.0-0.2) /100WBC Sodium (135-145) mmol/L Potassium (3.3-5.1) mmol/L Chloride (96-108) mmol/L Carbon Dioxide (22-29) mmol/L Anion Gap (12-20) BUN (9-16) mg/dL Creatinine (0.5-1.4) mg/dL Estim Creat Clear Calc Estimated GFR Random Glucose (60-115) mg/dL Calcium (8.4-10.2) mg/dL Total Bilirubin (0.0-1.0) mg/dL Direct Bilirubin (0.0-0.5) mg/dL AST (5-37) U/L ALT (0-40) U/L Alkaline Phosphatase (39-117) U/L Ammonia (13-55) umol/L Troponin I High Sens < 2.7 (<3.5-35.0) ng/L B-Natriuretic Peptide 16 (<100) pg/mL Total Protein (6.5-8.0) g/dL Albumin (3.5-5.0) g/dL Lipase (8-78) U/L Urine Color Urine Appearance Urine pH (5.0-9.0) Ur Specific [place] (1.005-1.025) Urine Protein (Neg-Trace) mg/dL Urine Glucose (UA) (Negative) mg/dL Urine Ketones (Negative) mg/dL Urine Blood (Negative) Urine Nitrite (Negative) Ur Leukocyte Esterase (Negative) Urine RBC (0-2) /HPF Urine WBC (0-5) /HPF Ur Squamous Epith Cells (0-2) /HPF Urine Bacteria (None Seen) Hyaline Casts (0-2) /LPF COVID-19 (MICHELLE) Negative (Negative) COVID-19 Clin Com See Note 01/09/23 Range/Units 12:27 WBC (4.8-10.8) X10*3/uL RBC (4.60-5.80) X10*6/uL Hgb (14.0-18.0) g/dl Hct (42.0-52.0) % MCV (80.0-98.0) fL MCH (27.0-33.0) pg MCHC (31.0-36.0) g/dl RDW (11.0-16.0) % Plt Count (160-400) X10*3/uL MPV (9.4-12.4) fL Immature Gran % (Auto) (0.0-0.4) % Neut % (Auto) (45-73) % Lymph % (Auto) (20-40) % [place] % (Auto) (2-11) % Eos % (Auto) (0-4) % Baso % (Auto) (0-2) % Lymph # (Auto) (1.2-4.9) X10*3/uL [place] # (Auto) (0.1-1.2) X10*3/uL Eos # (Auto) (0.0-0.4) X10*3/uL Baso # (Auto) (0.0-0.2) X10*3/uL Abs Immat Gran (auto) (0.00-0.03) X10*3/uL Absolute Neuts (auto) (2.0-8.3) x10*3/uL Absolute Nucleated RBC (0.0-0.012) X10*3/uL Nucleated RBC % (auto) (0.0-0.2) /100WBC Sodium (135-145) mmol/L Potassium (3.3-5.1) mmol/L Chloride (96-108) mmol/L Carbon Dioxide (22-29) mmol/L Anion Gap (12-20) BUN (9-16) mg/dL Creatinine (0.5-1.4) mg/dL Estim Creat Clear Calc Estimated GFR Random Glucose (60-115) mg/dL Calcium (8.4-10.2) mg/dL Total Bilirubin (0.0-1.0) mg/dL Direct Bilirubin (0.0-0.5) mg/dL AST (5-37) U/L ALT (0-40) U/L Alkaline Phosphatase (39-117) U/L Ammonia (13-55) umol/L Troponin I High Sens (<3.5-35.0) ng/L B-Natriuretic Peptide (<100) pg/mL Total Protein (6.5-8.0) g/dL Albumin (3.5-5.0) g/dL Lipase (8-78) U/L Urine Color Yellow Urine Appearance Clear Urine pH 6.5 (5.0-9.0) Ur Specific [place] 1.020 (1.005-1.025) Urine Protein Negative (Neg-Trace) mg/dL Urine Glucose (UA) Negative (Negative) mg/dL Urine Ketones Trace (Negative) mg/dL Urine Blood Negative (Negative) Urine Nitrite Negative (Negative) Ur Leukocyte Esterase Trace H (Negative) Urine RBC 0-2 (0-2) /HPF Urine WBC 0-5 (0-5) /HPF Ur Squamous Epith Cells 0-2 (0-2) /HPF Urine Bacteria None Seen (None Seen) Hyaline Casts 3-5 (0-2) /LPF COVID-19 (MICHELLE) (Negative) COVID-19 Clin Com Independent Interpretation I performed an independent interpretation of an: Plain X-Ray (Chest: No acute intrathoracic pathology.) Radiology Impression Discussion of test interpretation with radiology: I have reviewed the radiologist's reading. Independent Historian Clinical information obtained from an independent historian. History obtained from or confirmed by: Other (Caregiver) External Record Review External record reviewed: Outside ED record Discharge Plan Discharge Clinical Impression: Hypotension, unspecified Patient Disposition: Xfer SNF Instructions: Hypotension (ED), How to Take a Blood Pressure (ED) Prescriptions: No Action metformin 1,000 mg tablet 1,000 mg PO BID Qty: 180 3RF gabapentin 300 mg capsule 300 mg PO BEDTIME Qty: 90 3RF mirtazapine 15 mg tablet,disintegrating 15 mg PO BEDTIME 90 Days Qty: 90 2RF divalproex 125 mg capsule, delayed rel sprinkle 500 mg PO BID 90 Days Qty: 720 2RF escitalopram oxalate 5 mg/5 mL solution 5 mg PO DAILY Qty: 240 3RF (DME) THICK IT See Rx Instructions .Route .MEDSUPPLY Qty: 1 0RF Rx Instructions: As directed (DME) Prodigy No Coding Strip See Rx Instructions .Route Qty: 100 6RF Rx Instructions: Test 3 times daily (DME) PRODIGY LANCET See Rx Instructions .Route .MEDSUPPLY Qty: 100 12RF Rx Instructions: As directed terazosin 10 mg capsule 10 mg PO BEDTIME 90 Days Qty: 90 3RF Rx Instructions: open capsule and mix with soft foods atorvastatin 40 mg tablet 40 mg PO BEDTIME Qty: 30 3RF carbidopa-levodopa 25-100 mg tablet 1.5 tab PO QID Qty: 168 1RF Rx Instructions: 37.5 - 150 mg to be taken 4 times a day benztropine 0.5 mg Tablet 0.5 mg PO BID insulin glargine [Basaglar KwikPen U-100 Insulin] 100 unit/mL (3 mL) insulin pen 8 unit subcut DAILY@1530 lorazepam 0.5 mg tablet 0.5 mg PO BID PRN (Reason: Agitation) risperidone 1 mg tablet 1 mg PO DAILY acetaminophen 650 mg tablet extended release 650 mg PO Q4H PRN (Reason: Fever Or Pain) (DME) compress.stocking,knee,reg,med Misc See Rx Instructions .Route Qty: 2 0RF Rx Instructions: As directed 20-30 mm HG (DME) lancets [CareTouch Safety Lancets] 26 gauge misc See Rx Instructions .Route Qty: 100 0RF Rx Instructions: As directed aspirin [Aspirin Childrens] 81 mg tablet,chewable 81 mg PO DAILY Qty: 90 3RF lisinopril 20 mg tablet 20 mg PO DAILY 90 Days Qty: 90 2RF Rx Instructions: crush and mix with soft foods, Hold med and call PCP if SBP > 160 , < 90 or DBP > 100 melatonin 3 mg tablet 3 mg PO BEDTIME Qty: 90 3RF Rx Instructions: crush and mix with soft foods topiramate [Topamax] 50 mg tablet 50 mg PO BID 90 Days Qty: 180 2RF Rx Instructions: crush and mix with soft foods (DME) lancets [Easy Touch Safety Lancets] 30 gauge misc See Rx Instructions .Route Qty: 3 3RF Rx Instructions: As directed check blood sugar 3 times a day (DME) BRIEF LArge See Rx Instructions .Route .MEDSUPPLY Qty: 100 11RF Rx Instructions: As directed magnesium hydroxide [Milk Of Magnesia Concentrated] 2,400 mg/10 mL suspension 30 ml PO DAILY PRN (Reason: constipation) Qty: 1000 11RF Rx Instructions: call PCP is no BM in 3 days (DME) lancets [[employer] Twist Top Lancet] 28 gauge misc See Rx Instructions .ROUTE .MEDSUPPLY Qty: 100 Rx Instructions: As directed Trulicity 0.75 mg/0.5 mL pen injector 0.75 mg subcut FR Referrals: Po,Claire Christianson MD [Primary Care Provider] -
== END 2023-01-09 14:28 | disposition skilled nursing facility (03) ==
PROVIDERS: Emergency Provider Emergency Medicine; PCP Internal Medicine
DX: I95.9 Hypotension, unspecified (principal); I10 Essential (primary) hypertension; R06.02 Shortness of breath; I45.10 Unspecified right bundle-branch block; Z20.822 Contact with and (suspected) exposure to COVID-19; Z20.828 Contact with and (suspected) exposure to other viral communicable diseases; Z79.899 Other long term (current) drug therapy
CPT/HCPCS: 36415; 71045; 80048; 80076; 81001; 82140; 83690; 83880; 84484; 85025; 87635; 93005; 99284

== ENCOUNTER 2023-03-07 17:20 | Emergency (ER) | payer MEDICARE, MEDICAID, SELFPAY ==
--- NOTE | 2023-03-07 17:52 | ED.GENADULT ---
HPI - General Adult General Chief complaint: Wound/Laceration Stated complaint: Open wound on buttock Time Seen by Provider: 03/07/23 20:10 Source: patient and other (intermediate staff) Mode of arrival: wheelchair Limitations: altered mental status (patient at baseline ) History of Present Illness HPI narrative: 73-year-old male with a past medical history of depression, diabetes, developmental delay, GERD, HTN, HLD, metabolic encephalopathy, schizophrenia, diabetes, CVA, Parkinson's here with complaints of wound noticed to to the buttocks for the last 3 days. Patient is here with staff as the patient is unable to provide any history present illness. Staff tells me there was the wound about 3 days ago. They have not mentioned this to his primary care doctor. Patient has not had any systemic symptoms of fevers, chills, vomiting. Related Data Home Medications Medication Instructions Recorded Confirmed dulaglutide 0.75 mg/0.5 mL 0.75 mg subcut FR 08/12/22 01/09/23 subcutaneous pen injector ([employer]) lancets 28 gauge (Loyalize Twist #100 ea 08/12/22 11/04/22 Top Lancet) acetaminophen 650 mg 650 mg PO Q4H PRN Fever Or Pain 01/09/23 01/09/23 tablet,extended release benztropine 0.5 mg tablet 0.5 mg PO BID 01/09/23 01/09/23 insulin glargine 100 unit/mL (3 8 unit subcut DAILY@1530 01/09/23 01/09/23 mL) subcutaneous pen (Basaglar KwikPen U-100 Insulin) lorazepam 0.5 mg tablet 0.5 mg PO BID PRN Agitation 01/09/23 01/09/23 risperidone 1 mg tablet 1 mg PO DAILY 01/09/23 01/09/23 Previous Rx's Medication Instructions Recorded metformin 1,000 mg tablet 1,000 mg PO BID #180 tabs 08/10/21 gabapentin 300 mg capsule 300 mg PO BEDTIME #90 caps 08/21/21 divalproex 125 mg capsule,delayed 500 mg PO BID 90 days #720 caps 01/01/22 release sprinkle mirtazapine 15 mg disintegrating 15 mg PO BEDTIME 90 days #90 tabs 01/01/22 tablet escitalopram oxalate 5 mg/5 mL 5 mg (5 mL) PO DAILY #240 mL 01/08/22 oral solution lancets 26 gauge (CareTouch Safety #100 ea 01/17/22 Lancets) THICK IT #1 ea 02/01/22 compress.stocking,knee,reg,med #2 ea 04/05/22 aspirin 81 mg chewable tablet 81 mg PO DAILY #90 tabs 08/06/22 (Aspirin Childrens) lancets 30 gauge (Easy Touch #3 boxes 08/06/22 Safety Lancets) melatonin 3 mg tablet 3 mg PO BEDTIME #90 tabs 08/06/22 topiramate 50 mg tablet (Topamax) 50 mg PO BID 90 days #180 tabs 08/06/22 blood sugar diagnostic (Prodigy No #100 ea 08/08/22 Coding strips) PRODIGY LANCET #100 ea 08/09/22 terazosin 10 mg capsule 10 mg PO BEDTIME 90 days #90 caps 08/19/22 magnesium hydroxide 2,400 mg/10 mL 30 ml PO DAILY PRN constipation 09/06/22 oral suspension (Milk Of Magnesia #1,000 mL Concentrated) atorvastatin 40 mg tablet 40 mg PO BEDTIME #30 tabs 09/13/22 BRIEF LArge #100 ea 11/21/22 carbidopa 25 mg-levodopa 100 mg 1.5 tab PO QID #168 tabs 01/24/23 tablet Allergies Allergy/AdvReac Type Severity Reaction Status Date / Time perfume Allergy Intermediate ITCHING Verified 03/07/23 17:52 Review of Systems Review of Systems: Yes all other systems are reviewed and are negative Constitutional: Constitutional: Reports no additional constitutional complaints, Denies body ache(s), Denies chills, Denies fever(s), Denies headache(s) and Denies weakness Eyes: Eyes: Reports no additional eye complaints and Denies change in vision ENT: Reports system reviewed and no additional complaints, except as documented, Denies dizziness, Denies headache(s), Denies nasal congestion, Denies nasal discharge and Denies neck pain Cardiovascular: Cardiovascular: Reports no additional cardiovascular complaints, Denies chest pain, Denies leg edema and Denies dyspnea Respiratory: Respiratory: Reports no additional respiratory complaints, Denies cough and Denies dyspnea Gastrointestinal: Gastrointestinal: Reports no additional gastrointestinal complaints, Denies abdominal pain, Denies diarrhea, Denies nausea and Denies vomiting Genitourinary: Genitourinary: Denies urinary incontinence Musculoskeletal: Musculoskeletal: Reports no additional musculoskeletal complaints, Denies back pain, Denies arthralgias, Denies joint swelling, Denies neck pain, Denies numbness and Denies tingling Integumentary/Breasts: Skin/Breast: Reports system reviewed and no additional complaints, except as docu, Denies rash and Reports wounds Neurologic: Reports system reviewed and no additional complaints, except as documented, Reports confusion, Denies dizziness, Denies headache(s), Denies numbness, Denies tingling and Denies weakness Psychiatric: Psychiatric: Reports confusion PMFSH Past Medical History Attestation statement: The following information was validated with the patient. Source: old records reviewed and nursing notes reviewed Medical History Annual physical exam BPH with obstruction/lower urinary tract symptoms Bruising Buttock wound Confusion Depression Developmental delay, moderate Diabetes type 2, uncontrolled Dysphagia Gastroesophageal reflux disease Hospital discharge follow-up Hypercholesteremia Hypertension Metabolic encephalopathy Nausea & vomiting Occipital infarction Oropharyngeal dysphagia Parkinson's disease Pedal edema Rash Schizophrenia Screening for eye condition Subungual hematoma of great toe Tubular adenoma of colon Type 2 diabetes mellitus with hyperglycemia Type 2 diabetes mellitus with hyperglycemia, without long-term current use of insulin Unsteady gait Urinary incontinence Vitamin D deficiency Weakness of both lower limbs Surgical History History of circumcision History of colonoscopy History of prostate surgery Family History Family History Father Type II diabetes mellitus Mother Type II diabetes mellitus Social History Social History Household Members: Other Housing: Other Housing Other:: [facility] Alcohol intake: never Patient Tobacco Use Status: Never used Tobacco e-Cigarette/Vaping Use: Never Used Second Hand Smoke Exposure: No Advance Directives: Yes Advance Directives on File: Yes Advance Directives Date on File: 07/11/21 service: No Current occupational status: disabled Current occupational exposures/hazards: No Cognitive needs: Yes Hearing needs: No Vision needs: No Physical Exam ED Vital Signs: Vital Signs - 24 hr 03/07/23 17:53 Temperature 97.6 F Pulse Rate 94 Respiratory Rate 18 Blood Pressure 171/87 H Pulse Oximetry 97 Oxygen Delivery Method Room Air BMI result Body Mass Index 27.9 Const General: alert and confusion Orientation/consciousness: confusion Limitations: altered mental status (at baseline ) HENMT Head: Yes normal to inspection Ears: hearing grossly normal bilaterally Eyes General: appearance normal, both eyes and all related structures Pupils: Equal, round and reactive pupils present Neck Neck: Yes normal visual inspection Chest Chest palpation & inspection: normal inspection of the chest Resp Effort & Inspection: normal respiratory effort Cardio Rate: regular rate Rhythm: regular rhythm Peripheral pulses: Peripheral pulses 2+ throughout Skin Other: Neuro General: confusion Cranial nerves: Yes Equal, round and reactive pupils present Course Course Course Narrative: This is an RME: Additional HPI, ROS, PE not included below will be deferred to primary provider. This is a 85-mppn-tqd-Pashto speaking male, poor historian, with a past medical history of TIA, T2DM, schizophrenia, GERD, presenting to the emergency department accompanied by senior biostatistician/group leader, for small open wound on right buttocks for several days. grounds maintenance worker states no discharge. Unable to visualize in triage due to limited privacy. VSS. grounds maintenance worker states that pt has not received night time medications. BP 171/87, all other VS WNL, afebrile. Plan: Labs ordered Medical Decision Making Medical Decision Making MDM Narrative: 73 yo male from a intermediate here with concern for wound on buttocks noted 3 days On exam patient has a stage II pressure ulcer which does not appear infected. A pressure dressing was placed. Recommend dressing changes daily and repositioning frequently at the intermediate. nursing home staff did have patient follow-up with his primary care doctor. Reviewed worrisome signs and symptoms when to return to the emergency room. Comfortable plan for discharge home. Differential Diagnosis Differential Diagnoses: The differential diagnosis associated with the presentation includes Pressure ulcer No signs or symptoms of infection. Low concern for Maggie's gangrene, cellulitis Lab Data 03/07/23 18:10 03/07/23 18:10 Labs: Lab Results 03/07/23 03/07/23 03/07/23 Range/Units 18:10 18:10 18:40 WBC 4.6 L (4.8-10.8) X10*3/uL RBC 4.52 L (4.60-5.80) X10*6/uL Hgb 13.6 L (14.0-18.0) g/dl Hct 41.6 L (42.0-52.0) % MCV 92.0 (80.0-98.0) fL MCH 30.1 (27.0-33.0) pg MCHC 32.7 (31.0-36.0) g/dl RDW 14.1 (11.0-16.0) % Plt Count 176 (160-400) X10*3/uL MPV 8.4 L (9.4-12.4) fL Immature Gran % (Auto) 1.1 H (0.0-0.4) % Neut % (Auto) 51.1 (45-73) % Lymph % (Auto) 28.4 (20-40) % Mellette % (Auto) 14.6 H (2-11) % Eos % (Auto) 4.1 H (0-4) % Baso % (Auto) 0.7 (0-2) % Lymph # (Auto) 1.3 (1.2-4.9) X10*3/uL Mellette # (Auto) 0.7 (0.1-1.2) X10*3/uL Eos # (Auto) 0.2 (0.0-0.4) X10*3/uL Baso # (Auto) 0.0 (0.0-0.2) X10*3/uL Abs Immat Gran (auto) 0.05 H (0.00-0.03) X10*3/uL Absolute Neuts (auto) 2.3 (2.0-8.3) x10*3/uL Absolute Nucleated RBC 0.020 H (0.0-0.012) X10*3/uL Nucleated RBC % (auto) 0.4 H (0.0-0.2) /100WBC Sodium 138 (135-145) mmol/L Potassium 4.3 (3.3-5.1) mmol/L Chloride 96 (96-108) mmol/L Carbon Dioxide 28 (22-29) mmol/L Anion Gap 18 (12-20) BUN 15 (9-16) mg/dL Creatinine 0.98 (0.5-1.4) mg/dL Estim Creat Clear Calc 65.1 Estimated GFR > 60 POC Glucose 118 H (60-115) mg/dL Random Glucose 116 H (60-115) mg/dL Calcium 10.0 D (8.4-10.2) mg/dL Discharge Plan Discharge Clinical Impression: Pressure ulcer Patient Disposition: Home, Self-Care Instructions: Pressure Injury (ED) Additional Instructions: Change dresssing daily See PCP friday Prescriptions: No Action metformin 1,000 mg tablet 1,000 mg PO BID Qty: 180 3RF gabapentin 300 mg capsule 300 mg PO BEDTIME Qty: 90 3RF mirtazapine 15 mg tablet,disintegrating 15 mg PO BEDTIME 90 Days Qty: 90 2RF divalproex 125 mg capsule, delayed rel sprinkle 500 mg PO BID 90 Days Qty: 720 2RF escitalopram oxalate 5 mg/5 mL solution 5 mg PO DAILY Qty: 240 3RF (DME) THICK IT See Rx Instructions .Route .MEDSUPPLY Qty: 1 0RF Rx Instructions: As directed (DME) Prodigy No Coding Strip See Rx Instructions .Route Qty: 100 6RF Rx Instructions: Test 3 times daily (DME) PRODIGY LANCET See Rx Instructions .Route .MEDSUPPLY Qty: 100 12RF Rx Instructions: As directed terazosin 10 mg capsule 10 mg PO BEDTIME 90 Days Qty: 90 3RF Rx Instructions: open capsule and mix with soft foods atorvastatin 40 mg tablet 40 mg PO BEDTIME Qty: 30 3RF carbidopa-levodopa 25-100 mg tablet 1.5 tab PO QID Qty: 168 1RF Rx Instructions: 37.5 - 150 mg to be taken 4 times a day benztropine 0.5 mg Tablet 0.5 mg PO BID insulin glargine [Basaglar KwikPen U-100 Insulin] 100 unit/mL (3 mL) insulin pen 8 unit subcut DAILY@1530 lorazepam 0.5 mg tablet 0.5 mg PO BID PRN (Reason: Agitation) risperidone 1 mg tablet 1 mg PO DAILY acetaminophen 650 mg tablet extended release 650 mg PO Q4H PRN (Reason: Fever Or Pain) (DME) compress.stocking,knee,reg,med Misc See Rx Instructions .Route Qty: 2 0RF Rx Instructions: As directed 20-30 mm HG (DME) lancets [CareTouch Safety Lancets] 26 gauge misc See Rx Instructions .Route Qty: 100 0RF Rx Instructions: As directed aspirin [Aspirin Childrens] 81 mg tablet,chewable 81 mg PO DAILY Qty: 90 3RF melatonin 3 mg tablet 3 mg PO BEDTIME Qty: 90 3RF Rx Instructions: crush and mix with soft foods topiramate [Topamax] 50 mg tablet 50 mg PO BID 90 Days Qty: 180 2RF Rx Instructions: crush and mix with soft foods (DME) lancets [Easy Touch Safety Lancets] 30 gauge misc See Rx Instructions .Route Qty: 3 3RF Rx Instructions: As directed check blood sugar 3 times a day (DME) BRIEF LArge See Rx Instructions .Route .MEDSUPPLY Qty: 100 11RF Rx Instructions: As directed magnesium hydroxide [Milk Of Magnesia Concentrated] 2,400 mg/10 mL suspension 30 ml PO DAILY PRN (Reason: constipation) Qty: 1000 11RF Rx Instructions: call PCP is no BM in 3 days (DME) lancets [Prodigy Twist Top Lancet] 28 gauge misc See Rx Instructions .ROUTE .MEDSUPPLY Qty: 100 Rx Instructions: As directed Trulicity 0.75 mg/0.5 mL pen injector 0.75 mg subcut FR Referrals: Po,Claire Christianson MD [Primary Care Provider] - 1 week Print Language: Divehi
[2023-03-07 17:53] VITALS: BP 171/87; PULSE 94; RESP 18; TEMP 36.4; O2SAT 97; BMI 27.9
[2023-03-07 18:15] LABS: MANUAL DIFF FLAG NO
[2023-03-07 18:16] LABS: Basophils Percent Auto 0.7 % (0-2); Eosinophils Absolute Auto 0.2 X10*3/uL (0.0-0.4); Eosinophils Percent Auto 4.1 % (0-4); Hematocrit 41.6 % (42.0-52.0); Hemoglobin 13.6 g/dl (14.0-18.0); Imm Gran Abs Auto 0.05 X10*3/uL (0.00-0.03); Imm Gran Pct Auto 1.1 % (0.0-0.4); Lymphocytes Absolute Auto 1.3 X10*3/uL (1.2-4.9); Lymphocytes Percent Auto 28.4 % (20-40); Mean Corpuscular HGB Conc 32.7 g/dl (31.0-36.0); Mean Corpuscular Hemoglobin 30.1 pg (27.0-33.0); Mean Platelet Volume 8.4 fL (9.4-12.4); Monocytes Absolute Auto 0.7 X10*3/uL (0.1-1.2); Monocytes Percent Auto 14.6 % (2-11); NRBC Pct Auto 0.4 /100WBC (0.0-0.2); Neutrophils Absolute Auto 2.3 x10*3/uL (2.0-8.3); Neutrophils Percent Auto 51.1 % (45-73); Platelet Count 176 X10*3/uL (160-400); Red Blood Count 4.52 X10*6/uL (4.60-5.80); Red Cell Distribution Width 14.1 % (11.0-16.0); White Blood Count 4.6 X10*3/uL (4.8-10.8)
[2023-03-07 18:34] LABS: Anion Gap 18 (12-20); Blood Urea Nitrogen 15 mg/dL (9-16); Carbon Dioxide 28 mmol/L (22-29); Chloride 96 mmol/L (96-108); Creatinine Clr Calc Pharmacy 65.1; Estimated Glomerular Filt Rate > 60; Glucose Random 116 mg/dL (60-115); Potassium 4.3 mmol/L (3.3-5.1); Sodium 138 mmol/L (135-145)
--- NOTE | 2023-03-07 18:36 | PC.NURSE ---
pt brought into room asked if they had pain and headache, pt stated he had 10/10 abd pain- pt wasnt triaged for abd pain, tech notified we need a poc, worker at bedside, pt awaiting provider, will continue to monitor
[2023-03-07 18:43] LABS: Glucose, Whole Blood 118 mg/dL (60-115)
--- NOTE | 2023-03-07 20:48 | PC.NURSE ---
med plex dressing applied to sacrum per PARENT COACH verbal order.
== END 2023-03-07 20:56 | disposition home or self-care (01) ==
PROVIDERS: Physician Assistant Medical; Emergency Provider Student in an Organized Health Care Education/Training Program; PCP Internal Medicine
DX: L89.320 Pressure ulcer of left buttock, unstageable (principal); L89.310 Pressure ulcer of right buttock, unstageable; Z79.899 Other long term (current) drug therapy
CPT/HCPCS: 36415; 80048; 82947; 85025; 99283; 99284

== ENCOUNTER 2023-04-08 14:04 | Outpatient (AMB) | payer MEDICARE, MEDICAID, SELFPAY ==
--- NOTE | 2023-04-08 13:55 | MHC.OFFWIV ---
Intake Vital Signs 04/08/23 14:00 BP 130/90 H Blood Pressure Location Rt brachial Position Sitting Pulse 94 Pulse Source Pulse Oximeter Pulse Oximetry (%) 97 Oxygen Delivery Method Room Air Intake Visit Reasons: EST/urinary incont? Intake Note: Patient here for possible UTI. Patient Tobacco Use Status: Never used Tobacco Allergies perfume Allergy (Intermediate, Verified 04/08/23 15:37) ITCHING Do you need a note to return to daycare/school/sports/work: No HPI HPI Comments History of Present Illness Details 73-year-old complex patient from a day program presents with his caregiver for concern of potential UTI. And his program today patient was found to have blood in his underwear unclear the location but they believe he may have came from his urination. They deny any fevers chills nausea or vomiting. Patient is acting appropriately at baseline. [facility] Medical History Annual physical exam BPH with obstruction/lower urinary tract symptoms Bruising Buttock wound Confusion Depression Developmental delay, moderate Diabetes type 2, uncontrolled Dysphagia Gastroesophageal reflux disease Hospital discharge follow-up Hypercholesteremia Hypertension Metabolic encephalopathy Nausea & vomiting Occipital infarction Oropharyngeal dysphagia Parkinson's disease Pedal edema Rash Schizophrenia Screening for eye condition Subungual hematoma of great toe Tubular adenoma of colon Type 2 diabetes mellitus with hyperglycemia Type 2 diabetes mellitus with hyperglycemia, without long-term current use of insulin Unsteady gait Urinary incontinence Vitamin D deficiency Weakness of both lower limbs Surgical History History of circumcision History of colonoscopy History of prostate surgery Family History Father Type II diabetes mellitus Mother Type II diabetes mellitus Social History Household Members: Other Housing: Other Housing Other:: NURSING HOME Alcohol intake: never Patient Tobacco Use Status: Never used Tobacco e-Cigarette/Vaping Use: Never Used Second Hand Smoke Exposure: No Advance Directives Date on File: 07/11/21 service: No Current occupational status: disabled Current occupational exposures/hazards: No Cognitive needs: Yes Hearing needs: No Vision needs: No Review of Systems Const All systems reviewed & are unremarkable except as noted in HPI and below Details: Hematuria Physical Exam Vital Signs: Last Vital Signs Pulse 94 04/08/23 14:00 BP 130/90 H 04/08/23 14:00 Pulse Ox 97 04/08/23 14:00 Oxygen Delivery Method Room Air 04/08/23 14:00 Const General: no acute distress, alert and awake Limitations: physical limitations and other limitations (Developmentally delayed,) HEENT Head: Yes normal to inspection Chest Chest palpation & inspection: normal inspection of the chest Resp Effort & Inspection: normal respiratory effort Assessment & Plan Assessment & Plan (1) Hematuria: Code(s): R31.9 - Hematuria, unspecified Plan 73-year-old complex patient from a day program presents with his caregiver for concern of potential UTI. VSS. Exam patient presents alert at baseline per caregiver. Urinalysis was done attempted but per caregiver patient refuses use the bathroom while hand is not cooperating. Discussed with caregiver limitations of the urgent care to evaluate patient given his complex medical history as well as difficulty communicating and nonparticipatory during evaluation. Discussed with caregiver the patient would probably best be treated at [facility]. Caregiver has expressed understanding is will take patient to main ED for further evaluation. Discharge instructions, follow up and treatment are discussed with patient in my usual fashion. Alternatives in treatment are also discussed. The patient will return for worsening symptoms or as needed. Advised that any labs/imaging ordered will be followed up on and contact made if further treatment needed. Counseled that patient's condition may require further evaluation and/or treatment. Symptoms of concern for worsening disorder discussed in detail in my customary manner. Patient does verbalize understanding of the plan, there are no apparent barriers to communication. The patient is given the opportunity to ask questions and have them answered to his/her satisfaction Medications: Discontinued insulin glargine 8 units (0.08 mL) subcut DAILY@1600 15 mL 2RF E11.65 - Type 2 diabetes mellitus with hyperglycemia risperidone 1 mg PO BID 180 tabs 0RF Coding Level of Care Code Est Pt Level 2 (83558) Diagnoses Hematuria R31.9
[2023-04-08 14:00] VITALS: BP 130/90; PULSE 94; O2SAT 97
== END 2023-04-08 14:34 | disposition home or self-care (01) ==
PROVIDERS: PCP Internal Medicine; Visit Provider Physician Assistant
DX: R31.9 Hematuria, unspecified (principal)
CPT/HCPCS: 99212

== ENCOUNTER 2023-04-08 15:32 | Emergency (ER) | payer MEDICARE, MEDICAID, SELFPAY ==
[2023-04-08 15:38] VITALS: BP 176/92; PULSE 113; RESP 18; TEMP 36.6; O2SAT 97; BMI 28.1
--- NOTE | 2023-04-08 15:38 | ED.GENADULT ---
HPI - General Adult General Chief complaint: Urogenital-Male Stated complaint: ?UTI Time Seen by Provider: 04/09/23 01:38 Source: patient Mode of arrival: ambulatory Limitations: no limitations History of Present Illness HPI narrative: Patient with history of psychiatric disease schizophrenia diabetic from senior care came as he was touching his penis and did notice small amount of blood on the brief no fever no vomiting otherwise he has at baseline Related Data Home Medications Medication Instructions Recorded Confirmed dulaglutide 0.75 mg/0.5 mL 0.75 mg subcut FR 08/12/22 03/27/23 subcutaneous pen injector (Trulicity) lancets 28 gauge (Prodigy Twist #100 ea 08/12/22 03/27/23 Top Lancet) acetaminophen 650 mg 650 mg PO Q4H PRN Fever Or Pain 01/09/23 03/27/23 tablet,extended release benztropine 0.5 mg tablet 0.5 mg PO BID 01/09/23 03/27/23 insulin glargine 100 unit/mL (3 8 unit subcut DAILY@1530 01/09/23 03/27/23 mL) subcutaneous pen (Basaglar KwikPen U-100 Insulin) lorazepam 0.5 mg tablet 0.5 mg PO BID PRN Agitation 01/09/23 03/27/23 risperidone 1 mg tablet 1 mg PO DAILY 01/09/23 03/27/23 atorvastatin 40 mg tablet 40 mg PO BEDTIME 03/27/23 03/27/23 Previous Rx's Medication Instructions Recorded metformin 1,000 mg tablet 1,000 mg PO BID #180 tabs 08/10/21 gabapentin 300 mg capsule 300 mg PO BEDTIME #90 caps 08/21/21 divalproex 125 mg capsule,delayed 500 mg PO BID 90 days #720 caps 01/01/22 release sprinkle mirtazapine 15 mg disintegrating 15 mg PO BEDTIME 90 days #90 tabs 01/01/22 tablet escitalopram oxalate 5 mg/5 mL 5 mg (5 mL) PO DAILY #240 mL 01/08/22 oral solution lancets 26 gauge ([employer] Safety #100 ea 01/17/22 Lancets) THICK IT #1 ea 02/01/22 compress.stocking,knee,reg,med #2 ea 04/05/22 aspirin 81 mg chewable tablet 81 mg PO DAILY #90 tabs 08/06/22 (Aspirin Childrens) lancets 30 gauge (Easy Touch #3 boxes 08/06/22 Safety Lancets) melatonin 3 mg tablet 3 mg PO BEDTIME #90 tabs 08/06/22 topiramate 50 mg tablet (Topamax) 50 mg PO BID 90 days #180 tabs 08/06/22 blood sugar diagnostic (Prodigy No #100 ea 08/08/22 Coding strips) PRODIGY LANCET #100 ea 08/09/22 terazosin 10 mg capsule 10 mg PO BEDTIME 90 days #90 caps 08/19/22 magnesium hydroxide 2,400 mg/10 mL 30 ml PO DAILY PRN constipation 09/06/22 oral suspension (Milk Of Magnesia #1,000 mL Concentrated) BRIEF LArge #100 ea 11/21/22 carbidopa 25 mg-levodopa 100 mg 1.5 tab PO QID #168 tabs 03/18/23 tablet Allergies Allergy/AdvReac Type Severity Reaction Status Date / Time perfume Allergy Intermediate ITCHING Verified 04/08/23 15:37 Review of Systems Review of Systems: Yes all other systems are reviewed and are negative [facility] Past Medical History Medical History Annual physical exam BPH with obstruction/lower urinary tract symptoms Bruising Buttock wound Confusion Depression Developmental delay, moderate Diabetes type 2, uncontrolled Dysphagia Gastroesophageal reflux disease Hospital discharge follow-up Hypercholesteremia Hypertension Metabolic encephalopathy Nausea & vomiting Occipital infarction Oropharyngeal dysphagia Parkinson's disease Pedal edema Rash Schizophrenia Screening for eye condition Subungual hematoma of great toe Tubular adenoma of colon Type 2 diabetes mellitus with hyperglycemia Type 2 diabetes mellitus with hyperglycemia, without long-term current use of insulin Unsteady gait Urinary incontinence Vitamin D deficiency Weakness of both lower limbs Surgical History History of circumcision History of colonoscopy History of prostate surgery Family History Family History Father Type II diabetes mellitus Mother Type II diabetes mellitus Social History Social History Household Members: Other Housing: Other Housing Other:: [facility] Alcohol intake: unknown Patient Tobacco Use Status: Never used Tobacco Smoked in Last 30 Days: No e-Cigarette/Vaping Use: Never Used Second Hand Smoke Exposure: No Use of substances other than those prescribed or required for medical reasons: Unable to respond Advance Directives: Yes Advance Directives on File: Yes Advance Directives Date on File: 07/11/21 service: No Current occupational status: disabled Current occupational exposures/hazards: No Cognitive needs: Yes Hearing needs: No Vision needs: No Physical Exam ED Vital Signs: Vital Signs - 24 hr 04/08/23 15:38 04/09/23 00:26 04/09/23 02:23 Temperature 98 F 97.7 F Pulse Rate 113 H 93 79 Respiratory Rate 18 18 18 Blood Pressure 176/92 H 165/91 H 151/85 H Pulse Oximetry 97 98 97 Oxygen Delivery Method Room Air Room Air Room Air BMI result Body Mass Index 28.1 Appearance: Alert. And awake No acute distress. Eyes: PERRLA, No Nystagmus ENT: Pharynx normal. Oral Mucosa moist Neck: Normal inspection. Neck supple. CVS: Normal heart rate and rhythm. Pulses normal. Respiratory: No respiratory distress. Equal air entry bilateral, no wheezing/rales/rhonchi Abdomen: Soft and nontender. Bowel sounds are present, no mass palpable, no CVA tenderness : Normal penis and scrotum no blood at the tip of penis Skin: Skin warm and dry. Normal skin color. Normal skin turgor. Extremities: No lower extremity edema. No calf tenderness Neuro: Alert and awake moving all 4 extremities Course Course Course Narrative: This is an RME: Additional HPI, ROS, PE not included below will be deferred to primary provider. 73-year-old male history of TIA, dysuria, PVD, esophageal spasm, hypertension, schizophrenia and depression presenting with welfare worker states they found blood in patient's underwear this morning. They would like him evaluated for UTI . Patient acting his normal self. Patient stating that his penis hurts during triage. Plan labs, urine. Medications Administered Discontinued Medications Generic Name Dose Route Start Last Admin Trade Name Freq PRN Reason Stop Dose Admin Acetaminophen 650 mg 04/09/23 02:34 04/09/23 02:38 Acetaminophen 325 Mg Tablet PO 04/09/23 02:35 650 mg ONCE ONE Administration Medical Decision Making Medical Decision Making [facility] Narrative: Patient workup is negative will send patient back to [facility] of no signs of infection Lab Data [facility] Lab Attestation statement: I reviewed the patient's lab results. 04/08/23 16:09 04/08/23 16:09 Labs: Lab Results 04/08/23 04/08/23 04/08/23 Range/Units 16:09 16:09 22:56 WBC 5.3 (4.8-10.8) X10*3/uL RBC 4.50 L (4.60-5.80) X10*6/uL Hgb 13.7 L (14.0-18.0) g/dl Hct 42.1 (42.0-52.0) % MCV 93.6 (80.0-98.0) fL MCH 30.4 (27.0-33.0) pg MCHC 32.5 (31.0-36.0) g/dl RDW 14.1 (11.0-16.0) % Plt Count 203 (160-400) X10*3/uL MPV 8.1 L (9.4-12.4) fL Immature Gran % (Auto) 1.1 H (0.0-0.4) % Neut % (Auto) 54.7 (45-73) % Lymph % (Auto) 25.7 (20-40) % [place] % (Auto) 13.3 H (2-11) % Eos % (Auto) 4.6 H (0-4) % Baso % (Auto) 0.6 (0-2) % Lymph # (Auto) 1.4 (1.2-4.9) X10*3/uL [place] # (Auto) 0.7 (0.1-1.2) X10*3/uL Eos # (Auto) 0.2 (0.0-0.4) X10*3/uL Baso # (Auto) 0.0 (0.0-0.2) X10*3/uL Abs Immat Gran (auto) 0.06 H (0.00-0.03) X10*3/uL Absolute Neuts (auto) 2.9 (2.0-8.3) x10*3/uL Absolute Nucleated RBC 0.020 H (0.0-0.012) X10*3/uL Nucleated RBC % (auto) 0.4 H (0.0-0.2) /100WBC Sodium 137 (135-145) mmol/L Potassium 4.4 (3.3-5.1) mmol/L Chloride 99 (96-108) mmol/L Carbon Dioxide 23 (22-29) mmol/L Anion Gap 19 (12-20) BUN 9 (9-16) mg/dL Creatinine 0.89 (0.5-1.4) mg/dL Estim Creat Clear Calc 71.9 Estimated GFR > 60 POC Glucose (60-115) mg/dL Random Glucose 195 H (60-115) mg/dL Calcium 9.7 (8.4-10.2) mg/dL Magnesium 1.8 (1.6-2.6) mg/dL Total Bilirubin 0.4 (0.0-1.0) mg/dL AST 15 (5-37) U/L ALT 12 (0-40) U/L Alkaline Phosphatase 68 (39-117) U/L Total Protein 6.9 (6.5-8.0) g/dL Albumin 4.1 (3.5-5.0) g/dL Lipase 17 (8-78) U/L Urine Color Yellow Urine Appearance Clear Urine pH 7.5 (5.0-9.0) Ur Specific [place] 1.010 (1.005-1.025) Urine Protein Negative (Neg-Trace) mg/dL Urine Glucose (UA) 250 H (Negative) mg/dL Urine Ketones Trace (Negative) mg/dL Urine Blood Negative (Negative) Urine Nitrite Negative (Negative) Ur Leukocyte Esterase Negative (Negative) 04/09/23 Range/Units 00:34 WBC (4.8-10.8) X10*3/uL RBC (4.60-5.80) X10*6/uL Hgb (14.0-18.0) g/dl Hct (42.0-52.0) % MCV (80.0-98.0) fL MCH (27.0-33.0) pg MCHC (31.0-36.0) g/dl RDW (11.0-16.0) % Plt Count (160-400) X10*3/uL MPV (9.4-12.4) fL Immature Gran % (Auto) (0.0-0.4) % Neut % (Auto) (45-73) % Lymph % (Auto) (20-40) % [place] % (Auto) (2-11) % Eos % (Auto) (0-4) % Baso % (Auto) (0-2) % Lymph # (Auto) (1.2-4.9) X10*3/uL [place] # (Auto) (0.1-1.2) X10*3/uL Eos # (Auto) (0.0-0.4) X10*3/uL Baso # (Auto) (0.0-0.2) X10*3/uL Abs Immat Gran (auto) (0.00-0.03) X10*3/uL Absolute Neuts (auto) (2.0-8.3) x10*3/uL Absolute Nucleated RBC (0.0-0.012) X10*3/uL Nucleated RBC % (auto) (0.0-0.2) /100WBC Sodium (135-145) mmol/L Potassium (3.3-5.1) mmol/L Chloride (96-108) mmol/L Carbon Dioxide (22-29) mmol/L Anion Gap (12-20) BUN (9-16) mg/dL Creatinine (0.5-1.4) mg/dL Estim Creat Clear Calc Estimated GFR POC Glucose 114 (60-115) mg/dL Random Glucose (60-115) mg/dL Calcium (8.4-10.2) mg/dL Magnesium (1.6-2.6) mg/dL Total Bilirubin (0.0-1.0) mg/dL AST (5-37) U/L ALT (0-40) U/L Alkaline Phosphatase (39-117) U/L Total Protein (6.5-8.0) g/dL Albumin (3.5-5.0) g/dL Lipase (8-78) U/L Urine Color Urine Appearance Urine pH (5.0-9.0) Ur Specific [place] (1.005-1.025) Urine Protein (Neg-Trace) mg/dL Urine Glucose (UA) (Negative) mg/dL Urine Ketones (Negative) mg/dL Urine Blood (Negative) Urine Nitrite (Negative) Ur Leukocyte Esterase (Negative) Discharge Plan Discharge Clinical Impression: Hematuria Patient Disposition: Home, Self-Care Instructions: Hematuria (ED) Additional Instructions: No blood noticed in the urine Follow-up with PCP as needed Prescriptions: No Action metformin 1,000 mg tablet 1,000 mg PO BID Qty: 180 3RF gabapentin 300 mg capsule 300 mg PO BEDTIME Qty: 90 3RF mirtazapine 15 mg tablet,disintegrating 15 mg PO BEDTIME 90 Days Qty: 90 2RF divalproex 125 mg capsule, delayed rel sprinkle 500 mg PO BID 90 Days Qty: 720 2RF escitalopram oxalate 5 mg/5 mL solution 5 mg PO DAILY Qty: 240 3RF (DME) THICK IT See Rx Instructions .Route .MEDSUPPLY Qty: 1 0RF Rx Instructions: As directed (DME) Prodigy No Coding Strip See Rx Instructions .Route Qty: 100 6RF Rx Instructions: Test 3 times daily (DME) PRODIGY LANCET See Rx Instructions .Route .MEDSUPPLY Qty: 100 12RF Rx Instructions: As directed terazosin 10 mg capsule 10 mg PO BEDTIME 90 Days Qty: 90 3RF Rx Instructions: open capsule and mix with soft foods carbidopa-levodopa 25-100 mg tablet 1.5 tab PO QID Qty: 168 1RF Rx Instructions: 37.5 - 150 mg to be taken 4 times a day benztropine 0.5 mg Tablet 0.5 mg PO BID insulin glargine [Basaglar KwikPen U-100 Insulin] 100 unit/mL (3 mL) insulin pen 8 unit subcut DAILY@1530 lorazepam 0.5 mg tablet 0.5 mg PO BID PRN (Reason: Agitation) risperidone 1 mg tablet 1 mg PO DAILY acetaminophen 650 mg tablet extended release 650 mg PO Q4H PRN (Reason: Fever Or Pain) (DME) compress.stocking,knee,reg,med Misc See Rx Instructions .Route Qty: 2 0RF Rx Instructions: As directed 20-30 mm HG atorvastatin 40 mg tablet 40 mg PO BEDTIME (DME) lancets [CareTouch Safety Lancets] 26 gauge misc See Rx Instructions .Route Qty: 100 0RF Rx Instructions: As directed aspirin [Aspirin Childrens] 81 mg tablet,chewable 81 mg PO DAILY Qty: 90 3RF melatonin 3 mg tablet 3 mg PO BEDTIME Qty: 90 3RF Rx Instructions: crush and mix with soft foods topiramate [Topamax] 50 mg tablet 50 mg PO BID 90 Days Qty: 180 2RF Rx Instructions: crush and mix with soft foods (DME) lancets [Easy Touch Safety Lancets] 30 gauge misc See Rx Instructions .Route Qty: 3 3RF Rx Instructions: As directed check blood sugar 3 times a day (DME) BRIEF LArge See Rx Instructions .Route .MEDSUPPLY Qty: 100 11RF Rx Instructions: As directed magnesium hydroxide [Milk Of Magnesia Concentrated] 2,400 mg/10 mL suspension 30 ml PO DAILY PRN (Reason: constipation) Qty: 1000 11RF Rx Instructions: call PCP is no BM in 3 days (DME) lancets [Prodigy Twist Top Lancet] 28 gauge misc See Rx Instructions .ROUTE .MEDSUPPLY Qty: 100 Rx Instructions: As directed Trulicity 0.75 mg/0.5 mL pen injector 0.75 mg subcut FR Interventions: ED Discharge Assessment Last Done: 04/09/23 02:59 Discharge Date/Time: 04/09/23 03:01
[2023-04-08 16:15] LABS: MANUAL DIFF FLAG NO
[2023-04-08 16:19] LABS: Basophils Percent Auto 0.6 % (0-2); Eosinophils Absolute Auto 0.2 X10*3/uL (0.0-0.4); Eosinophils Percent Auto 4.6 % (0-4); Hematocrit 42.1 % (42.0-52.0); Hemoglobin 13.7 g/dl (14.0-18.0); Imm Gran Abs Auto 0.06 X10*3/uL (0.00-0.03); Imm Gran Pct Auto 1.1 % (0.0-0.4); Lymphocytes Absolute Auto 1.4 X10*3/uL (1.2-4.9); Lymphocytes Percent Auto 25.7 % (20-40); Mean Corpuscular HGB Conc 32.5 g/dl (31.0-36.0); Mean Corpuscular Hemoglobin 30.4 pg (27.0-33.0); Mean Corpuscular Volume 93.6 fL (80.0-98.0); Mean Platelet Volume 8.1 fL (9.4-12.4); Monocytes Absolute Auto 0.7 X10*3/uL (0.1-1.2); Monocytes Percent Auto 13.3 % (2-11); NRBC Pct Auto 0.4 /100WBC (0.0-0.2); Neutrophils Absolute Auto 2.9 x10*3/uL (2.0-8.3); Neutrophils Percent Auto 54.7 % (45-73); Platelet Count 203 X10*3/uL (160-400); Red Cell Distribution Width 14.1 % (11.0-16.0); White Blood Count 5.3 X10*3/uL (4.8-10.8)
[2023-04-08 16:38] LABS: Alanine Aminotransferase 12 U/L (0-40); Albumin Level 4.1 g/dL (3.5-5.0); Alkaline Phosphatase 68 U/L (39-117); Anion Gap 19 (12-20); Aspartate Amino Transferase 15 U/L (5-37); Bilirubin Total 0.4 mg/dL (0.0-1.0); Blood Urea Nitrogen 9 mg/dL (9-16); Calcium 9.7 mg/dL (8.4-10.2); Carbon Dioxide 23 mmol/L (22-29); Chloride 99 mmol/L (96-108); Creatinine Clr Calc Pharmacy 71.9; Estimated Glomerular Filt Rate > 60; Glucose Random 195 mg/dL (60-115); Magnesium 1.8 mg/dL (1.6-2.6); Potassium 4.4 mmol/L (3.3-5.1); Sodium 137 mmol/L (135-145); Total Protein 6.9 g/dL (6.5-8.0)
[2023-04-08 20:56] LABS: Lipase 17 U/L (8-78)
[2023-04-08 23:03] LABS: Appearance Urine Clear; Color Urine Yellow; Glucose Urine UA 250 mg/dL (Negative); Leukocyte Esterase Urine Negative (Negative); Nitrite Urine Negative (Negative); PH 7.5 (5.0-9.0); Urine Blood Negative (Negative); Urine Ketones Trace mg/dL (Negative); Urine Protein Negative (Neg-Trace)
[2023-04-09 00:26] VITALS: BP 165/91; PULSE 93; RESP 18; O2SAT 98
[2023-04-09 00:39] LABS: Glucose, Whole Blood 114 mg/dL (60-115)
[2023-04-09 02:23] VITALS: BP 151/85; PULSE 79; RESP 18; TEMP 36.5; O2SAT 97
[2023-04-09] MEDS: Acetaminophen 325 MG TABLET 650 MG PO (02:38)
== END 2023-04-09 03:01 | disposition home or self-care (01) ==
PROVIDERS: Physician Assistant; Emergency Provider Internal Medicine; PCP Internal Medicine
DX: R31.9 Hematuria, unspecified (principal); F20.9 Schizophrenia, unspecified; F99 Mental disorder, not otherwise specified; F32.9 Major depressive disorder, single episode, unspecified; E11.9 Type 2 diabetes mellitus without complications; I10 Essential (primary) hypertension; E78.00 Pure hypercholesterolemia, unspecified; Z86.73 Personal history of transient ischemic attack (TIA), and cerebral infarction without residual deficits; Z79.85 Long-term (current) use of injectable non-insulin antidiabetic drugs; Z79.84 Long term (current) use of oral hypoglycemic drugs; Z79.899 Other long term (current) drug therapy
CPT/HCPCS: 36415; 80053; 81003; 82947; 83690; 83735; 85025; 99283; 99284; 99285

== ENCOUNTER 2023-04-27 17:00 | Emergency (ER) | payer MEDICARE, MEDICAID, SELFPAY ==
--- NOTE | ~2023-04-27 | CT_ITS ---
EXAMINATION: CT HEAD WITHOUT CONTRAST CLINICAL INFORMATION: Fall COMPARISON: 12/02/2021 TECHNIQUE: Contiguous axial imaging was performed from the skull base to vertex without intravenous administration of contrast. This CT examination was performed using dose optimization techniques as appropriate, variously including the following: *Automated exposure control *Adjustment of mA and/or kV according to patient size (this includes techniques or standardized protocols for targeted exams where dose is matched to indication/reason for exam; i.e. extremities or head) *Use of iterative reconstruction technique DLP: 868 mGy-cm FINDINGS: There is no midline shift. There is no mass effect. There is no hemorrhage. The basal cisterns appear patent. The posterior fossa is grossly within normal limits. No extra-axial collection. Some scattered white matter ischemic changes. No fracture on the bone windows. CT/CT head/brain wo IV con IMPRESSION: Acute noncontrast CT of the brain.
[2023-04-27 17:15] VITALS: BP 144/106; BP 157/85; PULSE 103; PULSE 93; RESP 18; TEMP 37.2; O2SAT 95; O2SAT 96; BMI 28.1
[2023-04-27 17:28] VITALS: BP 155/92; PULSE 92; RESP 18; TEMP 36.5; O2SAT 96
[2023-04-27 17:29] LABS: Glucose, Whole Blood 123 mg/dL (60-115)
--- NOTE | 2023-04-27 17:47 | ECG_ITS ---
Test Reason : FALL Blood Pressure : / mmHG Vent. Rate : 091 BPM Atrial Rate : 091 BPM P-R Int : 150 ms QRS Dur : 090 ms QT Int : 350 ms P-R-T Axes : 041 -29 014 degrees QTc Int : 430 ms Normal sinus rhythm Normal ECG When compared with ECG of 09-JAN-2023 12:06, Incomplete right bundle branch block is no longer Present Referred By: Generic ED Physician Electronically Signed By:JANICE MARINO
[2023-04-27 18:00] VITALS: RESP 16
--- NOTE | 2023-04-27 18:12 | ED_ITS ---
HPI - Fall General Chief Complaint: Fall Stated Complaint: FALL FROM BED +COLLAR Time Seen by Provider: 04/27/23 17:51 Source: patient Mode of arrival: EMS Limitations: no limitations History of Present Illness HPI Narrative: Patient mentally challenged schizophrenic from correction with unsteady gait was sitting on the wheelchair got up and fell staff found him sitting on his buttocks no significant injuries noticed but according to correction staff patient does say yes to most of the questions clinically patient is at baseline says that he hit his back and the head but no signs of injury Related Data Home Medications Medication Instructions Recorded Confirmed dulaglutide 0.75 mg/0.5 mL 0.75 mg subcut FR 08/12/22 03/27/23 subcutaneous pen injector (Trulicity) lancets 28 gauge (Prodigy Twist #100 ea 08/12/22 03/27/23 Top Lancet) acetaminophen 650 mg 650 mg PO Q4H PRN Fever Or Pain 01/09/23 03/27/23 tablet,extended release benztropine 0.5 mg tablet 0.5 mg PO BID 01/09/23 03/27/23 insulin glargine 100 unit/mL (3 8 unit subcut DAILY@1530 01/09/23 03/27/23 mL) subcutaneous pen (Basaglar KwikPen U-100 Insulin) lorazepam 0.5 mg tablet 0.5 mg PO BID PRN Agitation 01/09/23 03/27/23 risperidone 1 mg tablet 1 mg PO DAILY 01/09/23 03/27/23 atorvastatin 40 mg tablet 40 mg PO BEDTIME 03/27/23 03/27/23 Previous Rx's Medication Instructions Recorded metformin 1,000 mg tablet 1,000 mg PO BID #180 tabs 08/10/21 gabapentin 300 mg capsule 300 mg PO BEDTIME #90 caps 08/21/21 divalproex 125 mg capsule,delayed 500 mg PO BID 90 days #720 caps 01/01/22 release sprinkle mirtazapine 15 mg disintegrating 15 mg PO BEDTIME 90 days #90 tabs 01/01/22 tablet escitalopram oxalate 5 mg/5 mL 5 mg (5 mL) PO DAILY #240 mL 01/08/22 oral solution lancets 26 gauge (CareTouch Safety #100 ea 01/17/22 Lancets) THICK IT #1 ea 02/01/22 compress.stocking,knee,reg,med #2 ea 04/05/22 aspirin 81 mg chewable tablet 81 mg PO DAILY #90 tabs 08/06/22 (Aspirin Childrens) lancets 30 gauge (Easy Touch #3 boxes 08/06/22 Safety Lancets) melatonin 3 mg tablet 3 mg PO BEDTIME #90 tabs 08/06/22 blood sugar diagnostic (Prodigy No #100 ea 08/08/22 Coding strips) PRODIGY LANCET #100 ea 08/09/22 terazosin 10 mg capsule 10 mg PO BEDTIME 90 days #90 caps 08/19/22 magnesium hydroxide 2,400 mg/10 mL 30 ml PO DAILY PRN constipation 09/06/22 oral suspension (Milk Of Magnesia #1,000 mL Concentrated) BRIEF LArge #100 ea 11/21/22 carbidopa 25 mg-levodopa 100 mg 1.5 tab PO QID #168 tabs 03/18/23 tablet topiramate 50 mg tablet (Topamax) 50 mg PO BID 90 days #180 tabs 04/15/23 Allergies Allergy/AdvReac Type Severity Reaction Status Date / Time perfume Allergy Intermediate ITCHING Verified 04/27/23 17:27 Review of Systems Review of Systems: Yes all other systems are reviewed and are negative PMFSH Past Medical History Medical History Annual physical exam BPH with obstruction/lower urinary tract symptoms Bruising Buttock wound Confusion Depression Developmental delay, moderate Diabetes type 2, uncontrolled Dysphagia Gastroesophageal reflux disease Hospital discharge follow-up Hypercholesteremia Hypertension Metabolic encephalopathy Nausea & vomiting Occipital infarction Oropharyngeal dysphagia Parkinson's disease Pedal edema Rash Schizophrenia Screening for eye condition Subungual hematoma of great toe Tubular adenoma of colon Type 2 diabetes mellitus with hyperglycemia Type 2 diabetes mellitus with hyperglycemia, without long-term current use of insulin Unsteady gait Urinary incontinence Vitamin D deficiency Weakness of both lower limbs Surgical History History of circumcision History of colonoscopy History of prostate surgery Family History Family History Father Type II diabetes mellitus Mother Type II diabetes mellitus Social History Social History Household Members: Other Housing: Other Housing Other:: ALF Alcohol intake: unknown Patient Tobacco Use Status: Never used Tobacco Smoked in Last 30 Days: No e-Cigarette/Vaping Use: Never Used Second Hand Smoke Exposure: No Use of substances other than those prescribed or required for medical reasons: No Advance Directives: Yes Advance Directives on File: Yes Advance Directives Date on File: 07/11/21 service: No Current occupational status: disabled Current occupational exposures/hazards: No Cognitive needs: Yes Hearing needs: No Vision needs: No Physical Exam Vital Signs: Vital Signs: Last Vital Signs Temp 97.7 F 04/27/23 17:28 Pulse 92 04/27/23 17:28 Resp 16 04/27/23 18:00 BP 155/92 H 04/27/23 17:28 Pulse Ox 96 04/27/23 17:28 O2 Del Method Room Air 04/27/23 17:28 BMI result Body Mass Index 28.1 Appearance: Alert. And awake. No acute distress. Eyes: PERRLA, No Nystagmus ENT: Pharynx normal. Oral Mucosa moist no signs of injury Neck: Normal inspection. Neck supple. No midline tenderness CVS: Normal heart rate and rhythm. Pulses normal. Respiratory: No respiratory distress. Equal air entry bilateral, no wheezing/rales/rhonchi Abdomen: Soft and nontender. Bowel sounds are present, Skin: Skin warm and dry. Normal skin color. Normal skin turgor. Extremities: No lower extremity edema. No calf tenderness Neuro: Alert and awake no focal deficit. Mentally challenged Medical Decision Making Medical Decision Making [facility] Narrative: Patient mechanical fall at his baseline no signs of injury head CT negative POC 123 EKG normal sinus rhythm will discharge patient back to correction Lab Data [facility] Lab Attestation statement: I reviewed the patient's lab results. Labs: Lab Results 04/27/23 Range/Units 17:26 POC Glucose 123 H (60-115) mg/dL Independent Interpretation I performed an independent interpretation of an: EKG Interpretation: Normal sinus rhythm heart rate 91 beats per minute normal intervals normal axis impression normal EKG Discharge Plan Discharge Clinical Impression: Fall Patient Disposition: Home, Self-Care Instructions: Fall Prevention for Older Adults (ED), Fall Prevention (ED) Additional Instructions: No signs of significant injuries noticed CT scan of the head was normal Blood sugar was 123 and had normal cardiogram Prescriptions: No Action metformin 1,000 mg tablet 1,000 mg PO BID Qty: 180 3RF gabapentin 300 mg capsule 300 mg PO BEDTIME Qty: 90 3RF mirtazapine 15 mg tablet,disintegrating 15 mg PO BEDTIME 90 Days Qty: 90 2RF divalproex 125 mg capsule, delayed rel sprinkle 500 mg PO BID 90 Days Qty: 720 2RF escitalopram oxalate 5 mg/5 mL solution 5 mg PO DAILY Qty: 240 3RF (DME) THICK IT See Rx Instructions .Route .MEDSUPPLY Qty: 1 0RF Rx Instructions: As directed (DME) Prodigy No Coding Strip See Rx Instructions .Route Qty: 100 6RF Rx Instructions: Test 3 times daily (DME) PRODIGY LANCET See Rx Instructions .Route .MEDSUPPLY Qty: 100 12RF Rx Instructions: As directed terazosin 10 mg capsule 10 mg PO BEDTIME 90 Days Qty: 90 3RF Rx Instructions: open capsule and mix with soft foods carbidopa-levodopa 25-100 mg tablet 1.5 tab PO QID Qty: 168 1RF Rx Instructions: 37.5 - 150 mg to be taken 4 times a day topiramate [Topamax] 50 mg tablet 50 mg PO BID 90 Days Qty: 180 2RF Rx Instructions: crush and mix with soft foods benztropine 0.5 mg Tablet 0.5 mg PO BID insulin glargine [Basaglar KwikPen U-100 Insulin] 100 unit/mL (3 mL) insulin pen 8 unit subcut DAILY@1530 lorazepam 0.5 mg tablet 0.5 mg PO BID PRN (Reason: Agitation) risperidone 1 mg tablet 1 mg PO DAILY acetaminophen 650 mg tablet extended release 650 mg PO Q4H PRN (Reason: Fever Or Pain) (DME) compress.stocking,knee,reg,med Misc See Rx Instructions .Route Qty: 2 0RF Rx Instructions: As directed 20-30 mm HG atorvastatin 40 mg tablet 40 mg PO BEDTIME (DME) lancets [CareTouch Safety Lancets] 26 gauge misc See Rx Instructions .Route Qty: 100 0RF Rx Instructions: As directed aspirin [Aspirin Childrens] 81 mg tablet,chewable 81 mg PO DAILY Qty: 90 3RF melatonin 3 mg tablet 3 mg PO BEDTIME Qty: 90 3RF Rx Instructions: crush and mix with soft foods (DME) lancets [Easy Touch Safety Lancets] 30 gauge misc See Rx Instructions .Route Qty: 3 3RF Rx Instructions: As directed check blood sugar 3 times a day (DME) BRIEF LArge See Rx Instructions .Route .MEDSUPPLY Qty: 100 11RF Rx Instructions: As directed magnesium hydroxide [Milk Of Magnesia Concentrated] 2,400 mg/10 mL suspension 30 ml PO DAILY PRN (Reason: constipation) Qty: 1000 11RF Rx Instructions: call PCP is no BM in 3 days (DME) lancets [Prodigy Twist Top Lancet] 28 gauge misc See Rx Instructions .ROUTE .MEDSUPPLY Qty: 100 Rx Instructions: As directed Trulicity 0.75 mg/0.5 mL pen injector 0.75 mg subcut FR Interventions: ED Discharge Assessment Last Done: 04/27/23 20:00 Discharge Date/Time: 04/27/23 20:01 Print Language: Tajik
--- NOTE | 2023-04-27 18:31 | PC.NURSE ---
pt resting quietly on stretcher with director of long-term at bedside. dementia at baseline. pt will answer some questions with one word answers but not others. will not report if he has pain or rate it. questions pertaining to vaccinations and safety answered by long-term director. pt slurred speech and irish speaking only. rr even/unlabored. wctm
== END 2023-04-27 20:01 | disposition home or self-care (01) ==
PROVIDERS: Emergency Provider Internal Medicine; PCP Internal Medicine
DX: S09.90XA Unspecified injury of head, initial encounter (principal); F25.9 Schizoaffective disorder, unspecified; R94.31 Abnormal electrocardiogram [ECG] [EKG]; R51.9 Headache, unspecified; W01.10XA Fall on same level from slipping, tripping and stumbling with subsequent striking against unspecified object, initial encounter; Y93.9 Activity, unspecified; Y92.9 Unspecified place or not applicable; Y99.9 Unspecified external cause status; Z79.899 Other long term (current) drug therapy
CPT/HCPCS: 70450; 82947; 93005; 99284

== ENCOUNTER → 2023-04-27 17:47 | Outpatient (BNV) | payer MEDICARE, MEDICAID, SELFPAY | PROVIDERS: Emergency Provider Internal Medicine; PCP Internal Medicine; Visit Provider Internal Medicine | DX: G45.9 Transient cerebral ischemic attack, unspecified (principal) | CPT/HCPCS: 93010 ==

== ENCOUNTER 2023-05-08 10:27 | Emergency (ER) | payer MEDICARE, MEDICAID, SELFPAY ==
--- NOTE | ~2023-05-08 | XR_ITS ---
EXAMINATION: XR CHEST CLINICAL INFORMATION: Cough COMPARISON: 01/09/2023 TECHNIQUE: Frontal view of the chest was obtained. FINDINGS: Lung volumes are low. Bibasilar atelectasis is seen. Heart size normal. No evidence of CHF. No gross consolidations, pleural effusions or lung masses are seen. XR/XR chest 1V IMPRESSION: Low lung volumes with bibasilar atelectasis.
--- NOTE | ~2023-05-08 | CT_ITS ---
EXAMINATION: CT HEAD WITHOUT CONTRAST CLINICAL INFORMATION: Altered mental status. COMPARISON: 04/27/2023 TECHNIQUE: Contiguous axial imaging was performed from the skull base to vertex without intravenous administration of contrast. This CT examination was performed using dose optimization techniques as appropriate, variously including the following: *Automated exposure control *Adjustment of mA and/or kV according to patient size (this includes techniques or standardized protocols for targeted exams where dose is matched to indication/reason for exam; i.e. extremities or head) *Use of iterative reconstruction technique DLP: 659 mGy-cm FINDINGS: There is no evidence of acute intracranial hemorrhage or territorial infarction. No mass effect or midline shift is seen. Bazan to white matter differentiation is preserved. No extra-axial fluid collections are identified. The ventricles are unchanged in size. The osseous structures and soft tissues are normal. The mastoid air cells and visualized portions of the paranasal sinuses are well aerated. CT/CT head/brain wo IV con IMPRESSION: No acute intracranial pathology.
[2023-05-08 10:36] LABS: Glucose, Whole Blood 104 mg/dL (60-115)
--- NOTE | 2023-05-08 10:38 | PC.NURSE ---
arrives as stroke alert- md martinez assessed on arrival and states at this time not calling stroke alert. poc WNL. no distress. PIV left hand c/d/i. +o2 sat on RA. per ems: called as stroke alert in field from retirement. per ems: staff at facility stated at 0900 noticed a right-sided weakness, dragging right leg when tx to ems stretcher, and facial droop which typically is intermittent but not going away and noted drooling. also states increased weakness and unable to ambulate well starting this AM. baseline dementia- is aox2, follows commands. no known fall, no thinners, hx CVA w/o residual per staff
[2023-05-08 10:39] VITALS: BP 147/92; PULSE 82; O2SAT 98
[2023-05-08 10:50] VITALS: BP 148/79; PULSE 81; RESP 16; TEMP 36.5; O2SAT 97; BMI 32.5
--- NOTE | 2023-05-08 10:54 | ECG_ITS ---
Test Reason : HYPERTENSION Blood Pressure : / mmHG Vent. Rate : 083 BPM Atrial Rate : 083 BPM P-R Int : 140 ms QRS Dur : 096 ms QT Int : 364 ms P-R-T Axes : 033 -31 010 degrees QTc Int : 427 ms Normal sinus rhythm Left axis deviation Minimal voltage criteria for LVH, may be normal variant ( R in aVL ) Abnormal ECG When compared with ECG of 27-APR-2023 18:24, No significant change was found Referred By: Eve López Electronically Signed By:Aung Duarte
--- NOTE | 2023-05-08 11:28 | ED_ITS ---
HPI - Altered Mental Status General Chief Complaint: Weakness Stated Complaint: FACIAL DROOPING AND DROOLING STROKE ALERT Time Seen by Provider: 05/08/23 10:54 Source: EMS and other Mode of arrival: EMS History of Present Illness HPI narrative: This is a 73-year-old male who is brought in by EMS initially as a stroke alert from a long term, tactical response group officer states that at 09:00 she had noticed concerns for right-sided weakness, dragging his right leg, patient is unable to provide further information as he has chronic psychiatric illness, as well as Parkinson's. And on further investigation of questioning staff member states that patient has been noticeably having increased difficulty over the past week with drooling and slow ambulation that he has had intermittently but now seems to be more persistent. Patient's healthcare proxy is the long term facility. Patient is noted to follow commands P Related Data Home Medications Medication Instructions Recorded Confirmed dulaglutide 0.75 mg/0.5 mL 0.75 mg subcut FR 08/12/22 03/27/23 subcutaneous pen injector (Trulicity) lancets 28 gauge (Prodigy Twist #100 ea 08/12/22 03/27/23 Top Lancet) acetaminophen 650 mg 650 mg PO Q4H PRN Fever Or Pain 01/09/23 03/27/23 tablet,extended release benztropine 0.5 mg tablet 0.5 mg PO BID 01/09/23 03/27/23 insulin glargine 100 unit/mL (3 8 unit subcut DAILY@1530 01/09/23 03/27/23 mL) subcutaneous pen (Davidaglar JosephPen U-100 Insulin) lorazepam 0.5 mg tablet 0.5 mg PO BID PRN Agitation 01/09/23 03/27/23 risperidone 1 mg tablet 1 mg PO DAILY 01/09/23 03/27/23 atorvastatin 40 mg tablet 40 mg PO BEDTIME 03/27/23 03/27/23 Previous Rx's Medication Instructions Recorded metformin 1,000 mg tablet 1,000 mg PO BID #180 tabs 08/10/21 gabapentin 300 mg capsule 300 mg PO BEDTIME #90 caps 08/21/21 divalproex 125 mg capsule,delayed 500 mg PO BID 90 days #720 caps 01/01/22 release sprinkle mirtazapine 15 mg disintegrating 15 mg PO BEDTIME 90 days #90 tabs 01/01/22 tablet escitalopram oxalate 5 mg/5 mL 5 mg (5 mL) PO DAILY #240 mL 01/08/22 oral solution lancets 26 gauge (CareTouch Safety #100 ea 01/17/22 Lancets) THICK IT #1 ea 02/01/22 compress.stocking,knee,reg,med #2 ea 04/05/22 aspirin 81 mg chewable tablet 81 mg PO DAILY #90 tabs 08/06/22 (Aspirin Childrens) lancets 30 gauge (Easy Touch #3 boxes 08/06/22 Safety Lancets) melatonin 3 mg tablet 3 mg PO BEDTIME #90 tabs 08/06/22 blood sugar diagnostic (Prodigy No #100 ea 08/08/22 Coding strips) PRODIGY LANCET #100 ea 08/09/22 terazosin 10 mg capsule 10 mg PO BEDTIME 90 days #90 caps 08/19/22 magnesium hydroxide 2,400 mg/10 mL 30 ml PO DAILY PRN constipation 09/06/22 oral suspension (Milk Of Magnesia #1,000 mL Concentrated) BRIEF LArge #100 ea 11/21/22 carbidopa 25 mg-levodopa 100 mg 1.5 tab PO QID #168 tabs 03/18/23 tablet topiramate 50 mg tablet (Topamax) 50 mg PO BID 90 days #180 tabs 04/15/23 Allergies Allergy/AdvReac Type Severity Reaction Status Date / Time perfume Allergy Intermediate ITCHING Verified 05/08/23 11:11 Review of Systems Review of Systems: Yes Unobtainable due to mental condition PMFSH Past Medical History Source: nursing notes reviewed Medical History Annual physical exam BPH with obstruction/lower urinary tract symptoms Bruising Buttock wound Confusion Depression Developmental delay, moderate Diabetes type 2, uncontrolled Dysphagia Gastroesophageal reflux disease Hospital discharge follow-up Hypercholesteremia Hypertension Metabolic encephalopathy Nausea & vomiting Occipital infarction Oropharyngeal dysphagia Parkinson's disease Pedal edema Rash Schizophrenia Screening for eye condition Subungual hematoma of great toe Tubular adenoma of colon Type 2 diabetes mellitus with hyperglycemia Type 2 diabetes mellitus with hyperglycemia, without long-term current use of insulin Unsteady gait Urinary incontinence Vitamin D deficiency Weakness of both lower limbs Surgical History History of circumcision History of colonoscopy History of prostate surgery Family History Family History Father Type II diabetes mellitus Mother Type II diabetes mellitus Social History Social History Household Members: Other Housing: Other Housing Other:: [place] Alcohol intake: unknown Patient Tobacco Use Status: Never used Tobacco e-Cigarette/Vaping Use: Never Used Second Hand Smoke Exposure: No Advance Directives: Yes Advance Directives on File: Yes Advance Directives Date on File: 07/11/21 service: No Current occupational status: disabled Current occupational exposures/hazards: No Cognitive needs: Yes Hearing needs: No Vision needs: No Physical Exam ED Vital Signs: Vital Signs - 24 hr 05/08/23 10:50 05/08/23 12:38 05/08/23 15:05 Temperature 97.7 F 97.6 F 97.6 F Pulse Rate 81 80 90 Respiratory Rate 16 15 16 Blood Pressure 148/79 H 148/86 H 174/90 H Pulse Oximetry 97 99 99 Oxygen Delivery Method Room Air Room Air Room Air BMI result Body Mass Index 32.5 VITAL SIGNS: Reviewed. GENERAL: Chronically ill, in no acute distress. HEAD: Normocephalic/atraumatic EYES: PERRLA, EOMI EARS: Ext canals without abnormality NOSE: Nares patent bilateral OROPHARYNX: no oral lesions noted, posterior pharynx clear NECK: Supple, no adenopathy LUNGS: Normal breath sounds. No adventitious sounds or accessory muscle use. SpO2<99> CARDIOVASCULAR: Regular rate and rhythm without noted murmurs, no JVD or lower extremity edema. ABDOMEN: Soft, non-tender, non-distended with bowel sounds. MUSCULOSKELETAL: No tenderness, deformities, or effusions noted on gross inspection. EXTREMITIES: No cyanosis, clubbing or edema. SKIN: Inspection of the skin reveals no rashes NEUROLOGIC: Alert and oriented x 1. Patient expresses pain on attempts to move lower extremities but has sensation and motor present to bilateral upper extremities. Medical Decision Making Medical Decision Making MDM Narrative: 73-year-old male with history and clinical presentation, DDX: Decompensated Parkinson's, infection, anemia, electrolyte abnormalities. I have no concerns for acute stroke at this time. Patient is not on blood thinners and has not suffered any traumatic falls. I reviewed all investigations, hematologic indices are chronically stable, notably there is no leukocytosis or left shift, there is a chronically stable normocytic anemia and no thrombocytopenia. Coagulation studies are within normal limits. Chemistry indices demonstrate a small decrease in sodium levels but otherwise electrolytes are without derangement, there is no BEULAH and liver enzymes are without abnormalities. CT head negative for intracranial hemorrhage and otherwise my interpretation is in agreement with radiology's impression. Chest x-ray without evidence to suggest a pneumonia and otherwise my interpretation is in agreement with radiology's impression. On re-evaluation patient appears alert, on further discussion with the facility staff at bedside he reports that patient is at baseline and says that he is assisted him to the bathroom a couple of times throughout his emergency room stay and that he is at baseline ambulation status which we will confirm. On ambulation testing patient is ambulating at baseline. Will perform a straight cath and follow-up on urinalysis and if negative will discharge back to the facility. Signed out to Dr Jeremy smallwood/lei KEATING Differential Diagnosis Differential Diagnoses: The differential diagnosis associated with the presentation includes Please see the discussion above Admission/Observation Consideration of admission/observation: Escalation of care including admission/observation considered Please see the discussion above Lab Data MDM Lab Attestation statement: I reviewed the patient's lab results. Please see the discussion above 05/08/23 12:29 05/08/23 12:29 Labs: Lab Results 05/08/23 05/08/23 05/08/23 Range/Units 10:32 12:29 12:29 WBC 4.9 (4.8-10.8) X10*3/uL RBC 4.41 L (4.60-5.80) X10*6/uL Hgb 13.4 L (14.0-18.0) g/dl Hct 40.6 L (42.0-52.0) % MCV 92.1 (80.0-98.0) fL MCH 30.4 (27.0-33.0) pg MCHC 33.0 (31.0-36.0) g/dl RDW 14.2 (11.0-16.0) % Plt Count 172 (160-400) X10*3/uL MPV 8.1 L (9.4-12.4) fL Immature Gran % (Auto) 0.8 H (0.0-0.4) % Neut % (Auto) 51.8 (45-73) % Lymph % (Auto) 27.8 (20-40) % [place] % (Auto) 15.7 H (2-11) % Eos % (Auto) 3.3 (0-4) % Baso % (Auto) 0.6 (0-2) % Lymph # (Auto) 1.4 (1.2-4.9) X10*3/uL [place] # (Auto) 0.8 (0.1-1.2) X10*3/uL Eos # (Auto) 0.2 (0.0-0.4) X10*3/uL Baso # (Auto) 0.0 (0.0-0.2) X10*3/uL Abs Immat Gran (auto) 0.04 H (0.00-0.03) X10*3/uL Absolute Neuts (auto) 2.6 (2.0-8.3) x10*3/uL Absolute Nucleated RBC 0.000 (0.0-0.012) X10*3/uL Nucleated RBC % (auto) 0.0 (0.0-0.2) /100WBC PT 13.3 (11.1-13.3) SEC INR 1.1 (0.9-1.1) Sodium (135-145) mmol/L Potassium (3.3-5.1) mmol/L Chloride (96-108) mmol/L Carbon Dioxide (22-29) mmol/L Anion Gap (12-20) BUN (9-16) mg/dL Creatinine (0.5-1.4) mg/dL Estim Creat Clear Calc Estimated GFR POC Glucose 104 (60-115) mg/dL Random Glucose (60-115) mg/dL Calcium (8.4-10.2) mg/dL Total Bilirubin (0.0-1.0) mg/dL AST (5-37) U/L ALT (0-40) U/L Alkaline Phosphatase (39-117) U/L Total Protein (6.5-8.0) g/dL Albumin (3.5-5.0) g/dL 05/08/23 Range/Units 12:29 WBC (4.8-10.8) X10*3/uL RBC (4.60-5.80) X10*6/uL Hgb (14.0-18.0) g/dl Hct (42.0-52.0) % MCV (80.0-98.0) fL MCH (27.0-33.0) pg MCHC (31.0-36.0) g/dl RDW (11.0-16.0) % Plt Count (160-400) X10*3/uL MPV (9.4-12.4) fL Immature Gran % (Auto) (0.0-0.4) % Neut % (Auto) (45-73) % Lymph % (Auto) (20-40) % [place] % (Auto) (2-11) % Eos % (Auto) (0-4) % Baso % (Auto) (0-2) % Lymph # (Auto) (1.2-4.9) X10*3/uL [place] # (Auto) (0.1-1.2) X10*3/uL Eos # (Auto) (0.0-0.4) X10*3/uL Baso # (Auto) (0.0-0.2) X10*3/uL Abs Immat Gran (auto) (0.00-0.03) X10*3/uL Absolute Neuts (auto) (2.0-8.3) x10*3/uL Absolute Nucleated RBC (0.0-0.012) X10*3/uL Nucleated RBC % (auto) (0.0-0.2) /100WBC PT (11.1-13.3) SEC INR (0.9-1.1) Sodium 134 L (135-145) mmol/L Potassium 4.5 (3.3-5.1) mmol/L Chloride 99 (96-108) mmol/L Carbon Dioxide 26 (22-29) mmol/L Anion Gap 14 (12-20) BUN 8 L (9-16) mg/dL Creatinine 0.83 (0.5-1.4) mg/dL Estim Creat Clear Calc 82.6 Estimated GFR > 60 POC Glucose (60-115) mg/dL Random Glucose 94 (60-115) mg/dL Calcium 9.5 (8.4-10.2) mg/dL Total Bilirubin 0.4 (0.0-1.0) mg/dL AST 15 (5-37) U/L ALT 13 (0-40) U/L Alkaline Phosphatase 57 (39-117) U/L Total Protein 6.4 L (6.5-8.0) g/dL Albumin 3.9 (3.5-5.0) g/dL External Record Review External record reviewed: Outpatient record and Prior outpatient labs Chronic Conditions Patient?s care impacted by: Diabetes Critical Care Time Critical Care Time Critical Care Time: Yes Total Critical Care Time: 30 Attestation: I personally attest to this time spent taking care of the patient. Discharge Plan Discharge Clinical Impression: Weakness, Fatigue Patient Disposition: Still a Patient Instructions: Weakness (ED), Fatigue (ED) Additional Instructions: 1. Resume all home medications as prescribed. 2. Recommend follow-up with primary care provider for possible medication adjustment. Return to the ER for any worsening symptoms. Prescriptions: No Action metformin 1,000 mg tablet 1,000 mg PO BID Qty: 180 3RF gabapentin 300 mg capsule 300 mg PO BEDTIME Qty: 90 3RF mirtazapine 15 mg tablet,disintegrating 15 mg PO BEDTIME 90 Days Qty: 90 2RF divalproex 125 mg capsule, delayed rel sprinkle 500 mg PO BID 90 Days Qty: 720 2RF escitalopram oxalate 5 mg/5 mL solution 5 mg PO DAILY Qty: 240 3RF (DME) THICK IT See Rx Instructions .Route .MEDSUPPLY Qty: 1 0RF Rx Instructions: As directed (DME) Emilee No Coding Strip See Rx Instructions .Route Qty: 100 6RF Rx Instructions: Test 3 times daily (DME) PRODIGY LANCET See Rx Instructions .Route .MEDSUPPLY Qty: 100 12RF Rx Instructions: As directed terazosin 10 mg capsule 10 mg PO BEDTIME 90 Days Qty: 90 3RF Rx Instructions: open capsule and mix with soft foods carbidopa-levodopa 25-100 mg tablet 1.5 tab PO QID Qty: 168 1RF Rx Instructions: 37.5 - 150 mg to be taken 4 times a day topiramate [Topamax] 50 mg tablet 50 mg PO BID 90 Days Qty: 180 2RF Rx Instructions: crush and mix with soft foods benztropine 0.5 mg Tablet 0.5 mg PO BID insulin glargine [Basaglar KwikPen U-100 Insulin] 100 unit/mL (3 mL) insulin pen 8 unit subcut DAILY@1530 lorazepam 0.5 mg tablet 0.5 mg PO BID PRN (Reason: Agitation) risperidone 1 mg tablet 1 mg PO DAILY acetaminophen 650 mg tablet extended release 650 mg PO Q4H PRN (Reason: Fever Or Pain) (DME) compress.stocking,knee,reg,med Misc See Rx Instructions .Route Qty: 2 0RF Rx Instructions: As directed 20-30 mm HG atorvastatin 40 mg tablet 40 mg PO BEDTIME (DME) lancets [CareTouch Safety Lancets] 26 gauge misc See Rx Instructions .Route Qty: 100 0RF Rx Instructions: As directed aspirin [Aspirin Childrens] 81 mg tablet,chewable 81 mg PO DAILY Qty: 90 3RF melatonin 3 mg tablet 3 mg PO BEDTIME Qty: 90 3RF Rx Instructions: crush and mix with soft foods (DME) lancets [Easy Touch Safety Lancets] 30 gauge misc See Rx Instructions .Route Qty: 3 3RF Rx Instructions: As directed check blood sugar 3 times a day (DME) BRIEF LArge See Rx Instructions .Route .MEDSUPPLY Qty: 100 11RF Rx Instructions: As directed magnesium hydroxide [Milk Of Magnesia Concentrated] 2,400 mg/10 mL suspension 30 ml PO DAILY PRN (Reason: constipation) Qty: 1000 11RF Rx Instructions: call PCP is no BM in 3 days (DME) lancets [Prodigy Twist Top Lancet] 28 gauge misc See Rx Instructions .ROUTE .MEDSUPPLY Qty: 100 Rx Instructions: As directed Trulicity 0.75 mg/0.5 mL pen injector 0.75 mg subcut FR
[2023-05-08 12:38] VITALS: BP 148/86; PULSE 80; RESP 15; TEMP 36.4; O2SAT 99
--- NOTE | 2023-05-08 12:38 | MHC.EDTECH ---
Labs collected on Pt and sent down.
[2023-05-08 12:40] LABS: MANUAL DIFF FLAG NO
[2023-05-08 12:45] LABS: Basophils Percent Auto 0.6 % (0-2); Eosinophils Absolute Auto 0.2 X10*3/uL (0.0-0.4); Eosinophils Percent Auto 3.3 % (0-4); Hematocrit 40.6 % (42.0-52.0); Hemoglobin 13.4 g/dl (14.0-18.0); Imm Gran Abs Auto 0.04 X10*3/uL (0.00-0.03); Imm Gran Pct Auto 0.8 % (0.0-0.4); Lymphocytes Absolute Auto 1.4 X10*3/uL (1.2-4.9); Lymphocytes Percent Auto 27.8 % (20-40); Mean Corpuscular Hemoglobin 30.4 pg (27.0-33.0); Mean Corpuscular Volume 92.1 fL (80.0-98.0); Mean Platelet Volume 8.1 fL (9.4-12.4); Monocytes Absolute Auto 0.8 X10*3/uL (0.1-1.2); Monocytes Percent Auto 15.7 % (2-11); Neutrophils Absolute Auto 2.6 x10*3/uL (2.0-8.3); Neutrophils Percent Auto 51.8 % (45-73); Platelet Count 172 X10*3/uL (160-400); Red Blood Count 4.41 X10*6/uL (4.60-5.80); Red Cell Distribution Width 14.2 % (11.0-16.0); White Blood Count 4.9 X10*3/uL (4.8-10.8)
[2023-05-08 12:55] LABS: INTERNATIONAL NORM RATIO 1.1 (0.9-1.1); Prothrombin Time 13.3 SEC (11.1-13.3)
[2023-05-08 13:15] LABS: Alanine Aminotransferase 13 U/L (0-40); Albumin Level 3.9 g/dL (3.5-5.0); Alkaline Phosphatase 57 U/L (39-117); Anion Gap 14 (12-20); Aspartate Amino Transferase 15 U/L (5-37); Bilirubin Total 0.4 mg/dL (0.0-1.0); Blood Urea Nitrogen 8 mg/dL (9-16); Calcium 9.5 mg/dL (8.4-10.2); Carbon Dioxide 26 mmol/L (22-29); Chloride 99 mmol/L (96-108); Creatinine Clr Calc Pharmacy 82.6; Estimated Glomerular Filt Rate > 60; Glucose Random 94 mg/dL (60-115); Potassium 4.5 mmol/L (3.3-5.1); Sodium 134 mmol/L (135-145); Total Protein 6.4 g/dL (6.5-8.0)
[2023-05-08 15:05] VITALS: BP 174/90; PULSE 90; RESP 16; TEMP 36.4; O2SAT 99
--- NOTE | 2023-05-08 16:35 | PC.NURSE ---
strt cath urine sent as earlier pt was incontinent and unable to obtain urine, and another time family member took pt to bathroom w/o notifying staff for urine sample. md martinez aware
[2023-05-08 16:59] LABS: Appearance Urine Clear; Color Urine Yellow; Glucose Urine UA Negative (Negative); Leukocyte Esterase Urine Negative (Negative); Nitrite Urine Negative (Negative); PH 7.5 (5.0-9.0); Specific Gravity - Urine <= 1.005 (1.005-1.025); Urine Blood Negative (Negative); Urine Ketones Negative (Negative); Urine Protein Negative (Neg-Trace)
[2023-05-08 17:08] LABS: Glucose, Whole Blood 107 mg/dL (60-115)
[2023-05-08 17:48] VITALS: BP 142/86; PULSE 89; RESP 16; TEMP 36.6; O2SAT 98
[2023-05-08 18:43] VITALS: BP 169/96; PULSE 89; RESP 18; O2SAT 97
== END 2023-05-09 08:19 | disposition home or self-care (01) ==
PROVIDERS: Student in an Organized Health Care Education/Training Program; Emergency Provider Emergency Medicine Emergency Medical Services
DX: R53.1 Weakness (principal); R53.83 Other fatigue; R05.9 Cough, unspecified; R94.31 Abnormal electrocardiogram [ECG] [EKG]; R41.82 Altered mental status, unspecified; Z79.899 Other long term (current) drug therapy
CPT/HCPCS: 36415; 70450; 71045; 80053; 81003; 82947; 85025; 85610; 93005; 99284; 99285

== ENCOUNTER → 2023-05-08 10:54 | Outpatient (BNV) | payer MEDICARE, MEDICAID, SELFPAY | PROVIDERS: Emergency Provider Emergency Medicine Emergency Medical Services; Visit Provider Internal Medicine Cardiovascular Disease | DX: R94.31 Abnormal electrocardiogram [ECG] [EKG] (principal) | CPT/HCPCS: 93010 ==

== ENCOUNTER 2023-06-27 13:05 | Outpatient (AMB) | payer MEDICARE, MEDICAID, SELFPAY ==
[2023-06-27 13:12] VITALS: BP 122/70; PULSE 89; O2SAT 94; BMI 29.4
--- NOTE | 2023-06-27 13:12 | A.OFFPC_ITS ---
Vital Signs 06/27/23 13:12 Height 5 ft 4 in Weight 171 lb 1.259 oz BMI 29.4 BP 122/70 Blood Pressure Location Lt brachial Position Sitting Pulse 89 Pulse Source Pulse Oximeter Pulse Oximetry (%) 94 Oxygen Delivery Method Room Air Intake Visit Reasons: DM, L elbow pain Allergies perfume Allergy (Intermediate, Verified 06/27/23 13:12) ITCHING Medication List - Last Reconciled 06/27/23 by Claire Bender, acetaminophen (Tylenol) 650 mg (2 x 325 mg) PO Q6H PRN aspirin (Aspirin Childrens) 81 mg PO DAILY atorvastatin 40 mg PO BEDTIME benztropine 0.5 mg PO BID blood sugar diagnostic (ProdigMobileAds No Coding strips) Test 3 times daily [BRIEF LArge As directed] carbidopa-levodopa 25-100 mg 1.5 tabs PO QID compress.stocking,knee,reg,med As directed 20-30 mm HG divalproex 500 mg (4 x 125 mg) PO BID 90 days dulaglutide (Trulicity) 0.75 mg subcut FR escitalopram oxalate 5 mg (5 mL) PO DAILY gabapentin 300 mg PO BEDTIME insulin glargine (Basaglar KwikPen U-100 Insulin) 8 units subcut DAILY@1530 lancets (Easy Touch Safety Lancets) As directed check blood sugar 3 times a day lancets (CareTouch Safety Lancets) As directed lancets (Prodigy Twist Top Lancet) As directed lorazepam 0.5 mg PO BID PRN melatonin 3 mg PO BEDTIME metformin 1,000 mg PO BID mirtazapine 15 mg PO BEDTIME 90 days [PRODIGY LANCET As directed] terazosin 10 mg PO BEDTIME 90 days [THICK IT As directed] topiramate (Topamax) 50 mg PO BID 90 days Tobacco use date assessed: 03/05/23 Fall risk assessment: No Falls in past year Last assessed Fall Risk: 06/27/23 Dental Screening Dental Screen Date: 06/27/23 Did you have a dental visit in the last 12 months?: No Did you have a dental problem in the last 6 months where you did not have access to dental care?: No Was dental information given to patient?: No HPI DM, L elbow pain HPI Details 73-year-old overweight male with a histo ry of schizophrenia hypertension GERD hypercholesterol E BPH with diabetes mellitus peripheral vascular disease coming in for follow-up. Last seen in February 2023 patient had a tubular adenoma and had a colonoscopy last in April 2017. Patient's last blood work was in 06/16/2023 showing total cholesterol of 100 LDL of 33 triglyceride of 178 HDL of 31 sodium potassium is normal blood sugar is 137 liver numbers are within normal limits hemoglobin A1c is 6.0. Patient had a visit to the ER in April 2023 question of a stroke with right-sided weakness dragging his right leg did not have any concerns about acute stroke go on examination and CT negative. Patient has seen the nurse practitioner in February following noted to have stage II pressure ulcer gluteal area on examination were resolved already [facility] Medical History Annual physical exam BPH with obstruction/lower urinary tract symptoms Bruising Buttock wound Confusion Depression Developmental delay, moderate Diabetes type 2, uncontrolled Dysphagia Gastroesophageal reflux disease Hospital discharge follow-up Hypercholesteremia Hypertension Metabolic encephalopathy Nausea & vomiting Occipital infarction Oropharyngeal dysphagia Parkinson's disease Pedal edema Rash Schizophrenia Screening for eye condition Subungual hematoma of great toe Tubular adenoma of colon Type 2 diabetes mellitus with hyperglycemia Type 2 diabetes mellitus with hyperglycemia, without long-term current use of insulin Unsteady gait Urinary incontinence Vitamin D deficiency Weakness of both lower limbs Surgical History History of circumcision History of colonoscopy History of prostate surgery Family History Father Type II diabetes mellitus Mother Type II diabetes mellitus Social History Household Members: Other Housing: Other Housing Other:: [facility] Alcohol intake: unknown Patient Tobacco Use Status: Never used Tobacco e-Cigarette/Vaping Use: Never Used Second Hand Smoke Exposure: No Advance Directives Date on File: 07/11/21 service: No Current occupational status: disabled Current occupational exposures/hazards: No Cognitive needs: Yes Hearing needs: No Vision needs: No Questionnaire PHQ-9 Over the last 2 weeks, how often have you been bothered by any of the following problems? 1. Little interest or pleasure in doing things: several days 2. Feeling down, depressed, or hopeless: several days 3. Trouble falling or staying asleep, or sleeping too much: several days 4. Feeling tired or having little energy: several days 5. Poor appetite or overeating: several days 6. Feeling bad about yourself - or that you are a failure or have let yourself or your family down: several days 7. Trouble concentrating on things, such as reading the newspaper or watching television: several days 8. Moving or speaking so slowly that other people could have noticed. Or the opposite - being so fidgety or restless that you have been moving around a lot more than usual: several days 9. Thoughts that you would be better off or of hurting yourself in some way: not at all Total score: 8 Depression Screening Interpretation: Positive Source: Developed by Drs. Ran Nieves, Bertha Lao, Natanael Chen and colleagues, with an educational sanford from [employer]. Thrive Questionnaire Date Thrive assessed: 11/21/22 AUDIT C Alcohol Use Questionnaire (AUDIT-C) 1. How often do you have a drink containing alcohol?: Never Total Score: 0 Score Reviewed/Action Taken: No NAVIN-7 AMB Questionnaire NAVIN-7 Date NAVIN - 7 assessed: 11/21/22 Source: Developed by Drs. Ran Nieves, Bertha Lao, Natanael Chen and colleagues, with an educational sanford from [employer]. Physical exam (Primary Care) Vital Signs: Last Vital Signs Pulse 89 06/27/23 13:12 BP 122/70 06/27/23 13:12 Pulse Ox 94 06/27/23 13:12 Oxygen Delivery Method Room Air 06/27/23 13:12 BMI result Body Mass Index 29.4 Tobacco/Smoking Status: Tobacco use Status Tobacco use date assessed 03/05/23 06/27/23 13:13 Patient Tobacco Use Status Never used Tobacco 06/27/23 13:13 e-Cigarette/Vaping Use Never Used 06/27/23 13:13 PHQ-9: PHQ-9 Score PHQ-9: Total score 8 06/27/23 13:26 Depression Screening Interpretation: Positive Thrive Assessment: Date of Thrive Assessment Date Thrive assessed 11/21/22 06/27/23 13:13 Const General: alert; No acute distress Eyes Conjunctivae: conjunctivae normal Resp Auscultation: clear to auscultation bilaterally Cardio Rate: regular rate Rhythm: regular rhythm GI Inspection: Yes normal to inspection Other: gluteal area no open wound but has mild redness Extrem General: Yes normal to inspection and No edema Results AMB Hemoglobin A1c AMB Hemoglobin A1c 5.8 % Last Edit by Mojgan Chadwick CMA on 06/27/23 13 :26 Results Reviewed Results Reviewed: Laboratory Last Values Hgb A1c (Clinic) 5.8 % (4.0-6.0) 06/27/23 13:13 Assessment and Plan Assessment & Plan (1) Type 2 diabetes mellitus with hyperglycemia: Code(s): E11.65 - Type 2 diabetes mellitus with hyperglycemia Plan: Decrease the amount of carbohydrate intake, pasta, bread, rice and potatoes are all sugar and that is aside from all the sweet stuff, remember that fruits are good but they are Sweet also. Hemoglobin A1c goal of less than 7.0. Patient is on Trulicity once a week Basaglar insulin metformin a 1000 mg twice a day (2) Hypercholesteremia: Code(s): E78.00 - Pure hypercholesterolemia, unspecified Plan: Avoid fried foods, chicken skin, eggs, butter margarine, pastries and meat. Be it pork or beef they have a lot of cholesterol LDL goal of less than 100 and triglyceride less than 150 patient takes atorvastatin 40 mg once a day Ashley blood work within goal (3) Gastroesophageal reflux disease: Code(s): K21.9 - Gastro-esophageal reflux disease without esophagitis Plan: Avoid the foods that causes that usually spicy foods, tomato products, juices, coffee, soda and foods that your sensitive to. After eating do not lie down, allow 3-4 hours before in lie down. And keep the head of bed above 30 degrees to avoid the acid from going up. (4) BPH with obstruction/lower urinary tract symptoms: Code(s): N40.1 - Benign prostatic hyperplasia with lower urinary tract symptoms; N13.8 - Other obstructive and reflux uropathy Plan: Continue with terazosin 10 mg at bedtime (5) Schizophrenia: Comment: Dr. Duffy; 20 min reviewing chart evaluating patient and documenting Code(s): F20.9 - Schizophrenia, unspecified Qualifiers: Schizophrenia type: undifferentiated schizophrenia Qualified Code(s): F20.3 - Undifferentiated schizophrenia Plan: Continue follow-up with counseling and therapy (6) Left elbow pain: Code(s): M25.522 - Pain in left elbow (7) Pressure sore of ischial area: Code(s): L89.309 - Pressure ulcer of unspecified buttock, unspecified stage Plan: discussed about taking off pressure ? inflatable seat pad from the supply store Orders: Orders AMB Hemoglobin A1c Today Z13.9 - Encounter for screening, unspecified Medications: New acetaminophen (Tylenol) for gtemp > 101 YO,muscle ache, joint pains pain in legs, pain from pressure sore 650 mg (2 x 325 mg) PO Q6H PRN 60 tabs 0RF pain M25.522 - Pain in left elbow Refilled aspirin (Aspirin Childrens) 81 mg PO DAILY 90 tabs 3RF Coding Level of Care Code Est Pt Level 4 (48215) Diagnoses Type 2 diabetes mellitus with hyperglycemia E11.65 Hypercholesteremia E78.00 Gastroesophageal reflux disease K21.9 BPH with obstruction/lower urinary tract symptoms N40.1; N13.8 Schizophrenia F20.3 Schizophrenia type: undifferentiated schizophrenia Left elbow pain M25.522 Pressure sore of ischial area L89.309 Additional Codes PHQ-9 - 39293 - PHQ-9 Billing: ([id number])
== END 2023-06-27 13:53 | disposition home or self-care (01) ==
PROVIDERS: PCP Internal Medicine; Visit Provider Internal Medicine
DX: E11.65 Type 2 diabetes mellitus with hyperglycemia (principal); M25.522 Pain in left elbow; F20.3 Undifferentiated schizophrenia; N40.1 Benign prostatic hyperplasia with lower urinary tract symptoms
CPT/HCPCS: 83036; 99214

== ENCOUNTER 2023-07-24 11:27 | Emergency (ER) | payer MEDICARE, MEDICAID, SELFPAY ==
--- NOTE | ~2023-07-24 | CT_ITS ---
EXAMINATION: CT ABDOMEN AND PELVIS WITHOUT CONTRAST CLINICAL INFORMATION: Lower abdominal pain. COMPARISON: 08/24/2020 TECHNIQUE: Multidetector volumetric imaging was performed from the superior aspect of the liver through the pubic symphysis. Sagittal and coronal reformatted images were obtained on the technologist's workstation. This CT examination was performed using dose optimization techniques as appropriate, variously including the following: *Automated exposure control *Adjustment of mA and/or kV according to patient size (this includes techniques or standardized protocols for targeted exams where dose is matched to indication/reason for exam; i.e. extremities or head) *Use of iterative reconstruction technique DLP: 978.61 mGy-cm FINDINGS: LUNG BASES: No pleural or pericardial effusion. Coronary artery calcifications. LIVER, GALLBLADDER, AND BILIARY TREE: The noncontrast liver is normal in size and contour. No biliary ductal dilatation is present. The gallbladder is contracted. PANCREAS: No ductal dilatation. SPLEEN: Not enlarged. ADRENAL GLANDS: No adrenal mass. KIDNEYS AND URETERS: The kidneys are symmetric in size. Left renal cyst. No renal or ureteral calculus. No hydronephrosis. No perinephric stranding. BLADDER: Circumferential irregular wall thickening. Cystocele. GASTROINTESTINAL TRACT: Small and large bowel loops are of normal caliber. No small bowel obstruction. Appendix is within normal limits. ABDOMINAL WALL: No significant hernia is appreciated. LYMPH NODES: No bulky lymphadenopathy. VASCULAR: Normal caliber abdominal aorta. PELVIC VISCERA: Unremarkable. OSSEOUS STRUCTURES: No destructive bone lesions. CT/CT abdomen pelvis wo IV con IMPRESSION: Circumferential irregular wall thickening of the urinary bladder. Mild prominence of the ureters without hydronephrosis. Correlation with cystoscopy may be considered if clinically appropriate.
--- NOTE | ~2023-07-24 | XR_ITS ---
EXAMINATION: XR CHEST CLINICAL INFORMATION: AMS, lactic acidosis and wheezing COMPARISON: None available. TECHNIQUE: 2 views of the chest were obtained. FINDINGS: The lungs are well-expanded and clear of acute process. The heart size and pulmonary vascularity is normal. No gross bony abnormality seen. XR/XR chest 2V IMPRESSION: Unremarkable chest exam.
--- NOTE | ~2023-07-24 | CT_ITS ---
EXAMINATION: CT HEAD WITHOUT CONTRAST CLINICAL INFORMATION: AMS. COMPARISON: CT brain 05/08/2023. TECHNIQUE: Contiguous axial imaging was performed from the skull base to vertex without intravenous administration of contrast. This CT examination was performed using dose optimization techniques as appropriate, variously including the following: *Automated exposure control *Adjustment of mA and/or kV according to patient size (this includes techniques or standardized protocols for targeted exams where dose is matched to indication/reason for exam; i.e. extremities or head) *Use of iterative reconstruction technique DLP: 1682 mGy-cm FINDINGS: There is no acute intra-axial, extra-axial bleed, masses or midline shift. There is no acute infarction in evolution. There is no edema. The [place] to white matter differentiation is maintained normal. Bone windows reveal no calvarial abnormality. No scalp soft tissue abnormality. Bilateral paranasal sinuses and mastoid sinuses are well-aerated and clear. CT/CT head/brain wo IV con IMPRESSION: No acute intracranial process.
[2023-07-24 11:31] VITALS: BP 143/87; BP 166/88; PULSE 100; PULSE 86; RESP 18; TEMP 36.6; O2SAT 98; O2SAT 99; BMI 29.3
--- NOTE | 2023-07-24 11:35 | ECG_ITS ---
Test Reason : WEAKNESS Blood Pressure : / mmHG Vent. Rate : 088 BPM Atrial Rate : 088 BPM P-R Int : 142 ms QRS Dur : 088 ms QT Int : 338 ms P-R-T Axes : 039 -33 029 degrees QTc Int : 408 ms Normal sinus rhythm Left anterior fascicular block Abnormal ECG When compared with ECG of 08-MAY-2023 11:01, No significant change was found Referred By: Terrie Munoz Electronically Signed By:JACOBO JACOB MD
--- NOTE | 2023-07-24 11:40 | ED.GENADULT ---
HPI - General Adult General Chief complaint: General Medical Stated complaint: AMS,AGITATED,NOT NORMAL BEHAVIOR FROM GRP HM Time Seen by Provider: 07/24/23 12:33 Source: EMS Mode of arrival: EMS Limitations: other (Poor historian) History of Present Illness HPI narrative: This is a 73-year-old male history of BPH, buttocks wound, depression, developmental delay, type 2 diabetes, hypertension, metabolic encephalopathy, occipital infarction, Parkinson's, schizophrenia, unsteady gait presenting to the emergency department from senior care with altered mental status and agitation x1 day worsening. According to senior care staff patient has been urinating on himself. Patient unable to provide me with history review of systems. Related Data Home Medications Medication Instructions Recorded Confirmed dulaglutide 0.75 mg/0.5 mL 0.75 mg subcut FR 08/12/22 06/27/23 subcutaneous pen injector (Trulicity) lancets 28 gauge (Prodigy Twist #100 ea 08/12/22 06/27/23 Top Lancet) benztropine 0.5 mg tablet 0.5 mg PO BID 01/09/23 06/27/23 insulin glargine 100 unit/mL (3 8 unit subcut DAILY@1530 01/09/23 06/27/23 mL) subcutaneous pen (Basaglar KwikPen U-100 Insulin) lorazepam 0.5 mg tablet 0.5 mg PO BID PRN Agitation 01/09/23 06/27/23 atorvastatin 40 mg tablet 40 mg PO BEDTIME 03/27/23 06/27/23 Previous Rx's Medication Instructions Recorded metformin 1,000 mg tablet 1,000 mg PO BID #180 tabs 08/10/21 gabapentin 300 mg capsule 300 mg PO BEDTIME #90 caps 08/21/21 divalproex 125 mg capsule,delayed 500 mg (4 x 125 mg) PO BID 90 days 01/01/22 release sprinkle #720 caps mirtazapine 15 mg disintegrating 15 mg PO BEDTIME 90 days #90 tabs 01/01/22 tablet escitalopram oxalate 5 mg/5 mL 5 mg (5 mL) PO DAILY #240 mL 01/08/22 oral solution lancets 26 gauge (CareTouch Safety #100 ea 01/17/22 Lancets) THICK IT #1 ea 02/01/22 compress.stocking,knee,reg,med #2 ea 04/05/22 lancets 30 gauge (Easy Touch #3 boxes 08/06/22 Safety Lancets) PRODIGY LANCET #100 ea 08/09/22 terazosin 10 mg capsule 10 mg PO BEDTIME 90 days #90 caps 08/19/22 BRIEF LArge #100 ea 11/21/22 topiramate 50 mg tablet (Topamax) 50 mg PO BID 90 days #180 tabs 04/15/23 blood sugar diagnostic (Prodigy No #100 ea 05/13/23 Coding strips) acetaminophen 325 mg tablet 650 mg (2 x 325 mg) PO Q6H PRN 06/27/23 (Tylenol) pain #60 tabs aspirin 81 mg chewable tablet 81 mg PO DAILY #90 tabs 06/27/23 (Aspirin Childrens) doxepin 6 mg tablet (Silenor) 6 mg PO BEDTIME PRN sleep #30 tabs 07/03/23 carbidopa 25 mg-levodopa 100 mg 1.5 tab PO QID #168 tabs 07/09/23 tablet melatonin 3 mg tablet 3 mg PO BEDTIME #90 tabs 07/09/23 Allergies Allergy/AdvReac Type Severity Reaction Status Date / Time perfume Allergy Intermediate ITCHING Verified 06/27/23 13:12 Review of Systems Review of Systems: Yes Unobtainable due to mental status PMFSH Past Medical History Attestation statement: The following information was validated with the patient. Source: old records reviewed and nursing notes reviewed Medical History Buttock wound Nausea & vomiting Hospital discharge follow-up Confusion Urinary incontinence Weakness of both lower limbs Screening for eye condition Type 2 diabetes mellitus with hyperglycemia, without long-term current use of insulin Diabetes type 2, uncontrolled Unsteady gait Subungual hematoma of great toe Rash Bruising Annual physical exam Pedal edema Oropharyngeal dysphagia Occipital infarction Tubular adenoma of colon Type 2 diabetes mellitus with hyperglycemia Dysphagia Vitamin D deficiency Parkinson's disease Developmental delay, moderate Hypercholesteremia Gastroesophageal reflux disease Hypertension Metabolic encephalopathy Schizophrenia Depression BPH with obstruction/lower urinary tract symptoms Surgical History History of circumcision History of prostate surgery History of colonoscopy Family History Family History Father Type II diabetes mellitus Mother Type II diabetes mellitus Social History Social History Household Members: Other Housing: Other Housing Other:: SHELTER Alcohol intake: unknown Patient Tobacco Use Status: Never used Tobacco Smoked in Last 30 Days: No e-Cigarette/Vaping Use: Never Used Second Hand Smoke Exposure: No Use of substances other than those prescribed or required for medical reasons: No Advance Directives: Yes Advance Directives on File: Yes Advance Directives Date on File: 07/11/21 service: No Current occupational status: disabled Current occupational exposures/hazards: No Cognitive needs: Yes Hearing needs: No Vision needs: No Physical Exam ED Vital Signs: Vital Signs - 24 hr 07/24/23 11:31 07/24/23 14:00 07/24/23 14:33 Temperature 97.9 F Pulse Rate 86 91 85 Respiratory Rate 18 11 L Blood Pressure 143/87 H 163/93 H 173/85 H Pulse Oximetry 98 99 Oxygen Delivery Method Room Air Room Air Room Air 07/24/23 15:23 Temperature Pulse Rate 89 Respiratory Rate Blood Pressure 166/92 H Pulse Oximetry 97 Oxygen Delivery Method Room Air BMI result Body Mass Index 29.3 vss Appearance: Alert.? Oriented X3.? No acute distress.? Head: Normocephalic, atraumatic, no step-offs or deformities Eyes: Pupils equal, round and reactive to light.? CVS: Normal heart rate and rhythm.? Pulses normal.? Respiratory: No respiratory distress.? Breath sounds normal.? Abdomen: Soft and nontender.? Skin: Skin warm and dry.? Normal skin color.? Normal skin turgor.? Extremities: No lower extremity edema.? No calf ttp. 5/5 strength to bilateral upper and lower extremities Back: No midline tenderness, no C-spine tenderness, full range of motion, no CVA tenderness bilaterally Neuro: Oriented X 3.? No motor deficit.? No sensory deficit. CN 2-12 intact Course Reevaluation(s) Reevaluation #1: Patient noted to have leukopenia, around patient's baseline. And a normocytic anemia. Chemistry with no acute electrolyte abnormalities requiring intervention. Lactic acid 4.3 ( UTI vs metformin lactic acidosis) , troponin negative, EKG nonischemic. Urine pending however I do suspect patient may have a urinary tract infection. There was delay in obtaining urine secondary to patient not allowing and combativeness. We had to straight cath patient for urine. At this time infection suspected 30 cc/kilos bolus ordered as well as ceftriaxone prophylactically du to presentation and labs. Time: 13:20 Reevaluation #2: UA clean, abd ct and chest xray pending. Time: 13:26 Reevaluation #3: photofinishing laboratory worker now tells me patient was recently taking off of his psych meds and they were not changed, also reports hallucinations. Feels as though this may be affecting patient's case and behavior. This behavior is not appropriate for the senior care. Requesting psychiatric consult. At this time care team evaluation will be placed. CT abdomen and pelvis, chest x-ray still pending. Time: 15:00 Additional Reevaluation(s): Ct abd and pelvis pending. CXR pnding. sign out to Dr. Spear Medications Administered Discontinued Medications Generic Name Dose Route Start Last Admin Trade Name Freq PRN Reason Stop Dose Admin Sodium Chloride 2,400 mls @ 2,400 mls/hr 07/24/23 13:19 07/24/23 13:22 Ns 30 ml/kg infuse over 1 hr (2400 ml) 07/24/23 14:18 2,400 mls/hr IV Administration .Q1H STA Ceftriaxone Sodium 1 gm/ 50 mls @ 100 mls/hr 07/24/23 13:19 07/24/23 14:03 Sodium Chloride IV 07/24/23 13:48 Infused ONCE ONE Infusion Medical Decision Making Medical Decision Making [facility] Narrative: 1141 73 year old male presents w/ AMS from senior care increased aggitation PE benign Will rule out UTI vs electrolyte abnormalities. Will also rule out ethanol and chicas Plan- labs, imaging, urine 1600 patient seen and re-evaluated came here for increased agitation for last 1 month hallucination delusions talking to himself patient receiving Seroquel changed to Ativan by his psychiatrist but according to staff is not working out no fever no cough workup showed lactic acidosis type B which is not from sepsis but from the metformin use. Patient will be medically cleared will be seen by the care team Differential Diagnosis Differential Diagnoses: The differential diagnosis associated with the presentation includes Will rule out UTI vs electrolyte abnormalities. Will also rule out ethanol and chicas Admission/Observation Consideration of admission/observation: Escalation of care including admission/observation considered Lab Data MDM Lab Attestation statement: I reviewed the patient's lab results. 07/24/23 12:45 07/24/23 12:45 Labs: Lab Results 07/24/23 07/24/23 07/24/23 Range/Units 12:45 12:46 13:05 WBC 4.3 L (4.8-10.8) X10*3/uL RBC 4.56 L (4.60-5.80) X10*6/uL Hgb 13.9 L (14.0-18.0) g/dl Hct 42.1 (42.0-52.0) % MCV 92.3 (80.0-98.0) fL MCH 30.5 (27.0-33.0) pg MCHC 33.0 (31.0-36.0) g/dl RDW 13.9 (11.0-16.0) % Plt Count 199 (160-400) X10*3/uL MPV 8.0 L (9.4-12.4) fL Immature Gran % (Auto) 0.9 H (0.0-0.4) % Neut % (Auto) 56.0 (45-73) % Lymph % (Auto) 25.9 (20-40) % [place] % (Auto) 14.6 H (2-11) % Eos % (Auto) 2.1 (0-4) % Baso % (Auto) 0.5 (0-2) % Lymph # (Auto) 1.1 L (1.2-4.9) X10*3/uL [place] # (Auto) 0.6 (0.1-1.2) X10*3/uL Eos # (Auto) 0.1 (0.0-0.4) X10*3/uL Baso # (Auto) 0.0 (0.0-0.2) X10*3/uL Abs Immat Gran (auto) 0.04 H (0.00-0.03) X10*3/uL Absolute Neuts (auto) 2.4 (2.0-8.3) x10*3/uL Absolute Nucleated RBC 0.000 (0.0-0.012) X10*3/uL Nucleated RBC % (auto) 0.0 (0.0-0.2) /100WBC Sodium 139 (135-145) mmol/L Potassium 4.0 (3.3-5.1) mmol/L Chloride 105 (96-108) mmol/L Carbon Dioxide 22 (22-29) mmol/L Anion Gap 16 (12-20) BUN 13 (9-16) mg/dL Creatinine 0.79 (0.5-1.4) mg/dL Estim Creat Clear Calc 79.9 Estimated GFR > 60 Random Glucose 101 (60-115) mg/dL Lactic Acid 4.3 H* (0.5-2.0) mmol/L Lactic Acid F/U @ 2Hr (0.5-2.0) mmol/L Calcium 9.3 (8.4-10.2) mg/dL Magnesium 1.9 (1.6-2.6) mg/dL Total Bilirubin 0.3 (0.0-1.0) mg/dL AST 13 (5-37) U/L ALT 11 (0-40) U/L Alkaline Phosphatase 68 (39-117) U/L Ammonia 27 (13-55) umol/L Troponin I High Sens < 2.7 (<3.5-35.0) ng/L Total Protein 6.5 (6.5-8.0) g/dL Albumin 4.0 (3.5-5.0) g/dL Lipase 24 (8-78) U/L Urine Color Yellow Urine Appearance Clear Urine pH 7.0 (5.0-9.0) Ur Specific [place] 1.015 (1.005-1.025) Urine Protein Negative (Neg-Trace) mg/dL Urine Glucose (UA) 100 H (Negative) mg/dL Urine Ketones Trace (Negative) mg/dL Urine Blood Negative (Negative) Urine Nitrite Negative (Negative) Ur Leukocyte Esterase Negative (Negative) Salicylates < 5.0 L (15-30) mg/dL Urine Opiates Screen Not Detected (Not Detect) Urine Fentanyl Screen Not Detected (Not Detect) Acetaminophen < 17 (<30) mcg/mL Ur Barbiturates Screen Not Detected (Not Detect) Ur Phencyclidine Scrn Not Detected (Not Detect) Ur Amphetamines Screen Not Detected (Not Detect) U Benzodiazepines Scrn Not Detected (Not Detect) Urine Cocaine Screen Not Detected (Not Detect) U Marijuana (THC) Screen Not Detected (Not Detect) COVID-19 (MICHELLE) Negative (Negative) COVID-19 Clin Com See Note 07/24/23 Range/Units 15:45 WBC (4.8-10.8) X10*3/uL RBC (4.60-5.80) X10*6/uL Hgb (14.0-18.0) g/dl Hct (42.0-52.0) % MCV (80.0-98.0) fL MCH (27.0-33.0) pg MCHC (31.0-36.0) g/dl RDW (11.0-16.0) % Plt Count (160-400) X10*3/uL MPV (9.4-12.4) fL Immature Gran % (Auto) (0.0-0.4) % Neut % (Auto) (45-73) % Lymph % (Auto) (20-40) % [place] % (Auto) (2-11) % Eos % (Auto) (0-4) % Baso % (Auto) (0-2) % Lymph # (Auto) (1.2-4.9) X10*3/uL [place] # (Auto) (0.1-1.2) X10*3/uL Eos # (Auto) (0.0-0.4) X10*3/uL Baso # (Auto) (0.0-0.2) X10*3/uL Abs Immat Gran (auto) (0.00-0.03) X10*3/uL Absolute Neuts (auto) (2.0-8.3) x10*3/uL Absolute Nucleated RBC (0.0-0.012) X10*3/uL Nucleated RBC % (auto) (0.0-0.2) /100WBC Sodium (135-145) mmol/L Potassium (3.3-5.1) mmol/L Chloride (96-108) mmol/L Carbon Dioxide (22-29) mmol/L Anion Gap (12-20) BUN (9-16) mg/dL Creatinine (0.5-1.4) mg/dL Estim Creat Clear Calc Estimated GFR Random Glucose (60-115) mg/dL Lactic Acid (0.5-2.0) mmol/L Lactic Acid F/U @ 2Hr 4.5 H* (0.5-2.0) mmol/L Calcium (8.4-10.2) mg/dL Magnesium (1.6-2.6) mg/dL Total Bilirubin (0.0-1.0) mg/dL AST (5-37) U/L ALT (0-40) U/L Alkaline Phosphatase (39-117) U/L Ammonia (13-55) umol/L Troponin I High Sens (<3.5-35.0) ng/L Total Protein (6.5-8.0) g/dL Albumin (3.5-5.0) g/dL Lipase (8-78) U/L Urine Color Urine Appearance Urine pH (5.0-9.0) Ur Specific [place] (1.005-1.025) Urine Protein (Neg-Trace) mg/dL Urine Glucose (UA) (Negative) mg/dL Urine Ketones (Negative) mg/dL Urine Blood (Negative) Urine Nitrite (Negative) Ur Leukocyte Esterase (Negative) Salicylates (15-30) mg/dL Urine Opiates Screen (Not Detect) Urine Fentanyl Screen (Not Detect) Acetaminophen (<30) mcg/mL Ur Barbiturates Screen (Not Detect) Ur Phencyclidine Scrn (Not Detect) Ur Amphetamines Screen (Not Detect) U Benzodiazepines Scrn (Not Detect) Urine Cocaine Screen (Not Detect) U Marijuana (THC) Screen (Not Detect) COVID-19 (MICHELLE) (Negative) COVID-19 Clin Com Independent Interpretation I performed an independent interpretation of an: EKG (Ventricular rate of 88, ME normal, QRS normal, QT/QTC normal. EKG normal sinus rhythm no ST elevation or vision concerning for skin), Plain X-Ray and CT Scan Radiology Impression Discussion of test interpretation with radiology: I have reviewed the radiologist's reading. Critical Care Time Critical Care Time Critical Care Time: Yes Total Critical Care Time: 35 Attestation: I attest to this time spent taking care of the patient, obtaining history, physical, reviewing labs, imaging, speaking to my attending, speaking to specialist. Discharge Plan Discharge Clinical Impression: Hallucinations, Urinary frequency Prescriptions: No Action metformin 1,000 mg tablet 1,000 mg PO BID Qty: 180 3RF gabapentin 300 mg capsule 300 mg PO BEDTIME Qty: 90 3RF mirtazapine 15 mg tablet,disintegrating 15 mg PO BEDTIME 90 Days Qty: 90 2RF divalproex 125 mg capsule, delayed rel sprinkle 500 mg PO BID 90 Days Qty: 720 2RF escitalopram oxalate 5 mg/5 mL solution 5 mg PO DAILY Qty: 240 3RF (DME) THICK IT See Rx Instructions .Route .MEDSUPPLY Qty: 1 0RF Rx Instructions: As directed (DME) PRODIGY LANCET See Rx Instructions .Route .MEDSUPPLY Qty: 100 12RF Rx Instructions: As directed terazosin 10 mg capsule 10 mg PO BEDTIME 90 Days Qty: 90 3RF Rx Instructions: open capsule and mix with soft foods topiramate [Topamax] 50 mg tablet 50 mg PO BID 90 Days Qty: 180 2RF Rx Instructions: crush and mix with soft foods (DME) Prodigy No Coding Strip See Rx Instructions .Route Qty: 100 6RF Rx Instructions: Test 3 times daily doxepin [Silenor] 6 mg tablet 6 mg PO BEDTIME PRN (Reason: sleep) Qty: 30 0RF melatonin 3 mg tablet 3 mg PO BEDTIME Qty: 90 3RF Rx Instructions: crush and mix with soft foods carbidopa-levodopa 25-100 mg tablet 1.5 tab PO QID Qty: 168 1RF Rx Instructions: 37.5 - 150 mg to be taken 4 times a day benztropine 0.5 mg Tablet 0.5 mg PO BID insulin glargine [Basaglar KwikPen U-100 Insulin] 100 unit/mL (3 mL) insulin pen 8 unit subcut DAILY@1530 lorazepam 0.5 mg tablet 0.5 mg PO BID PRN (Reason: Agitation) (DME) compress.stocking,knee,reg,med Misc See Rx Instructions .Route Qty: 2 0RF Rx Instructions: As directed 20-30 mm HG atorvastatin 40 mg tablet 40 mg PO BEDTIME (DME) lancets [CareTouch Safety Lancets] 26 gauge misc See Rx Instructions .Route Qty: 100 0RF Rx Instructions: As directed (DME) lancets [Easy Touch Safety Lancets] 30 gauge misc See Rx Instructions .Route Qty: 3 3RF Rx Instructions: As directed check blood sugar 3 times a day (DME) BRIEF LArge See Rx Instructions .Route .MEDSUPPLY Qty: 100 11RF Rx Instructions: As directed aspirin [Aspirin Childrens] 81 mg tablet,chewable 81 mg PO DAILY Qty: 90 3RF acetaminophen [Tylenol] 325 mg tablet 650 mg PO Q6H PRN (Reason: pain) Qty: 60 0RF Rx Instructions: for gtemp > 101 YO,muscle ache, joint pains pain in legs, pain from pressure sore (DME) lancets [Prodigy Twist Top Lancet] 28 gauge misc See Rx Instructions .ROUTE .MEDSUPPLY Qty: 100 Rx Instructions: As directed Trulicity 0.75 mg/0.5 mL pen injector 0.75 mg subcut FR
[2023-07-24 12:53] LABS: MANUAL DIFF FLAG NO
[2023-07-24 12:54] LABS: Basophils Percent Auto 0.5 % (0-2); Eosinophils Absolute Auto 0.1 X10*3/uL (0.0-0.4); Eosinophils Percent Auto 2.1 % (0-4); Hematocrit 42.1 % (42.0-52.0); Hemoglobin 13.9 g/dl (14.0-18.0); Imm Gran Abs Auto 0.04 X10*3/uL (0.00-0.03); Imm Gran Pct Auto 0.9 % (0.0-0.4); Lymphocytes Absolute Auto 1.1 X10*3/uL (1.2-4.9); Lymphocytes Percent Auto 25.9 % (20-40); Mean Corpuscular Hemoglobin 30.5 pg (27.0-33.0); Mean Corpuscular Volume 92.3 fL (80.0-98.0); Monocytes Absolute Auto 0.6 X10*3/uL (0.1-1.2); Monocytes Percent Auto 14.6 % (2-11); Neutrophils Absolute Auto 2.4 x10*3/uL (2.0-8.3); Platelet Count 199 X10*3/uL (160-400); Red Blood Count 4.56 X10*6/uL (4.60-5.80); Red Cell Distribution Width 13.9 % (11.0-16.0); White Blood Count 4.3 X10*3/uL (4.8-10.8)
[2023-07-24 13:00] LABS: Ammonia 27 umol/L (13-55)
--- NOTE | 2023-07-24 13:06 | PC.NURSE ---
straight cath complete. 1000ml of urine drained. sample sent to lab
[2023-07-24 13:09] LABS: Alanine Aminotransferase 11 U/L (0-40); Alkaline Phosphatase 68 U/L (39-117); Anion Gap 16 (12-20); Aspartate Amino Transferase 13 U/L (5-37); Bilirubin Total 0.3 mg/dL (0.0-1.0); Blood Urea Nitrogen 13 mg/dL (9-16); Calcium 9.3 mg/dL (8.4-10.2); Carbon Dioxide 22 mmol/L (22-29); Chloride 105 mmol/L (96-108); Creatinine Clr Calc Pharmacy 79.9; Estimated Glomerular Filt Rate > 60; Glucose Random 101 mg/dL (60-115); Magnesium 1.9 mg/dL (1.6-2.6); Sodium 139 mmol/L (135-145); Total Protein 6.5 g/dL (6.5-8.0)
[2023-07-24 13:12] LABS: Acetaminophen LAB < 17 mcg/mL (<30); Salicylate < 5.0 mg/dL (15-30)
[2023-07-24 13:17] LABS: COVID-19 Test Negative (Negative); IDNOW Serial# 9DB6401D
[2023-07-24 13:19] LABS: Lactic Acid 4.3 mmol/L (0.5-2.0); Troponin-I High Sensitivity < 2.7 ng/L (<3.5-35.0)
[2023-07-24 13:20] LABS: Appearance Urine Clear; Color Urine Yellow; Glucose Urine UA 100 mg/dL (Negative); Leukocyte Esterase Urine Negative (Negative); Nitrite Urine Negative (Negative); Specific Gravity - Urine 1.015 (1.005-1.025); Urine Blood Negative (Negative); Urine Ketones Trace mg/dL (Negative); Urine Protein Negative (Neg-Trace)
[2023-07-24 13:26] LABS: Amphetamine Screen Urine Not Detected (Not Detect); Barbiturates, Urine Not Detected (Not Detect); Benzodiazepines Screen Urine Not Detected (Not Detect); Cannabinoid Screen Urine Not Detected (Not Detect); Cocaine Screen Urine Not Detected (Not Detect); Fentanyl, urine Not Detected (Not Detect); Opiate Screen Urine Not Detected (Not Detect); Phencyclidine Screen Urine Not Detected (Not Detect)
[2023-07-24] MEDS: cefTRIAXone sodium 1 GM in 0.9 % Sodium Chloride 50 ML IV (13:27)
[2023-07-24 13:48] LABS: Lipase 24 U/L (8-78)
[2023-07-24 14:00] VITALS: BP 163/93; PULSE 91
[2023-07-24 14:33] VITALS: BP 173/85; PULSE 85; RESP 11; O2SAT 99
[2023-07-24 14:50] LABS: Reflex Lactate? Lactic Acid Added
[2023-07-24 15:23] VITALS: BP 166/92; PULSE 89; O2SAT 97
--- NOTE | 2023-07-24 15:25 | PC.NURSE ---
vergara inserted, 600ml output upon insertion.
[2023-07-24 16:01] LABS: ~Lactic Acid-LAB USE ONLY 4.5 mmol/L (0.5-2.0)
--- NOTE | 2023-07-24 16:09 | PC.NURSE ---
POC 249. This is a drop of 49. Per Dr. Hollins, do not titrate drip- leave drip the same at 6u/hr.
[2023-07-24 16:52] VITALS: BP 172/89; PULSE 94; RESP 18; O2SAT 97
--- NOTE | 2023-07-24 16:56 | PC.NURSE ---
per , Dc the vergara catheter
--- NOTE | 2023-07-24 17:08 | PHA.MEDREC ---
Pharmacy Consult ? Medication Reconciliation Pharmacy has completed the medication reconciliation. distillery worker confirmed medications. Spoke with Sukh on direction he was not sure on. Seroquel is a new prescription that has not been started yet. Yamile Kinney, pharmD
[2023-07-24 17:15] VITALS: BP 171/93; PULSE 85; RESP 18; O2SAT 97
[2023-07-24 17:29] LABS: Cancel Lactic Acid Canceled
[2023-07-24 17:54] LABS: Glucose, Whole Blood 91 mg/dL (60-115)
[2023-07-24] MEDS: Carbidopa/Levodopa 25/100 TABLET 1.5 TAB PO (19:08)
== END 2023-07-24 19:45 | disposition home or self-care (01) ==
PROVIDERS: Physician Assistant; Emergency Provider Internal Medicine
DX: F20.9 Schizophrenia, unspecified (principal); N39.0 Urinary tract infection, site not specified; R45.1 Restlessness and agitation; Z11.52 Encounter for screening for COVID-19; E11.9 Type 2 diabetes mellitus without complications; G20.A1 Parkinson's disease without dyskinesia, without mention of fluctuations; Z79.84 Long term (current) use of oral hypoglycemic drugs
CPT/HCPCS: 70450; 71046; 74176; 80053; 80143; 80179; 80307; 81003; 82140; 82947; 83605; 83690; 83735; 84484; 85025; 87040; 87635; 93005; 96361; 96374; 99285; J0696; S9485

== ENCOUNTER 2023-07-26 11:02 | Emergency (ER) | payer MEDICARE, MEDICAID, SELFPAY ==
--- NOTE | ~2023-07-26 | XR_ITS ---
History: Fall EXAM: Right knee 4 views and left tib-fib 3 views FINDINGS: Right knee imaging demonstrates no effusion. Generalized mild spurring. No deformity. Left tib-fib imaging demonstrates ankle mortise to be anatomic. No deformity. No focal bony lesion. XR/XR tibia fibula LT 2V IMPRESSION: No fracture. No effusion. Mild degenerative change right knee.
--- NOTE | ~2023-07-26 | XR_ITS ---
History: Fall EXAM: Right knee 4 views and left tib-fib 3 views FINDINGS: Right knee imaging demonstrates no effusion. Generalized mild spurring. No deformity. Left tib-fib imaging demonstrates ankle mortise to be anatomic. No deformity. No focal bony lesion. XR/XR knee RT 4V IMPRESSION: No fracture. No effusion. Mild degenerative change right knee.
[2023-07-26 11:24] VITALS: BP 157/78; PULSE 94; RESP 14; TEMP 36.9; O2SAT 99; BMI 27.4
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
[2023-07-26] MEDS: Acetaminophen 325 MG TABLET 975 MG PO (12:09)
[2023-07-26 13:43] VITALS: BP 143/91; PULSE 84; RESP 16; TEMP 36.9; O2SAT 98
== END 2023-07-26 14:14 | disposition home or self-care (01) ==
PROVIDERS: Emergency Provider Student in an Organized Health Care Education/Training Program; PCP Internal Medicine
DX: S80.01XA Contusion of right knee, initial encounter (principal); W19.XXXA Unspecified fall, initial encounter; L03.116 Cellulitis of left lower limb; E11.9 Type 2 diabetes mellitus without complications; I10 Essential (primary) hypertension; E78.00 Pure hypercholesterolemia, unspecified; Z86.73 Personal history of transient ischemic attack (TIA), and cerebral infarction without residual deficits; Z79.4 Long term (current) use of insulin; Z79.02 Long term (current) use of antithrombotics/antiplatelets; Z79.899 Other long term (current) drug therapy; Z79.82 Long term (current) use of aspirin; Y93.9 Activity, unspecified; Y92.9 Unspecified place or not applicable; Y99.9 Unspecified external cause status
CPT/HCPCS: 73564; 73590; 99283

== ENCOUNTER 2023-09-21 19:27 | Emergency (ER) | payer MEDICARE, MEDICAID, SELFPAY ==
[2023-09-21 19:39] VITALS: BP 160/76; PULSE 99; RESP 18; TEMP 36.8; O2SAT 97; BMI 24.2
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
== END 2023-09-21 20:17 | disposition home or self-care (01) ==
PROVIDERS: Emergency Provider Emergency Medicine; PCP Internal Medicine
DX: T21.12XA Burn of first degree of abdominal wall, initial encounter (principal); X08.8XXA Exposure to other specified smoke, fire and flames, initial encounter; E11.9 Type 2 diabetes mellitus without complications; I10 Essential (primary) hypertension; G20.A1 Parkinson's disease without dyskinesia, without mention of fluctuations; T23.232D Burn of second degree of multiple left fingers (nail), not including thumb, subsequent encounter; X10.0XXD Contact with hot drinks, subsequent encounter; Y93.9 Activity, unspecified; Y92.9 Unspecified place or not applicable; Y99.9 Unspecified external cause status
CPT/HCPCS: 99282; 99283

== ENCOUNTER 2023-09-23 20:27 | Emergency (ER) | payer MEDICARE, MEDICAID, SELFPAY ==
--- NOTE | ~2023-09-23 | XR_ITS ---
EXAMINATION: XR WRIST, RIGHT CLINICAL INFORMATION: Right wrist pain. COMPARISON: None available. TECHNIQUE: PA, lateral, and oblique views of the right wrist. FINDINGS: The bones and soft tissues appear unremarkable. No fracture appreciated. Alignment is anatomic with normal joint spaces. No erosions or abnormal soft tissue calcifications. XR/XR wrist RT 2V IMPRESSION: Unremarkable plain film examination of the right wrist.
--- NOTE | ~2023-09-23 | XR_ITS ---
EXAMINATION: XR KNEE, RIGHT CLINICAL INFORMATION: Right knee pain. COMPARISON: None available. TECHNIQUE: Four views of the right knee. FINDINGS: No fracture or joint effusion appreciated. Alignment is anatomic. Joint spaces are maintained. No abnormal soft tissue calcification. XR/XR knee RT 3V IMPRESSION: Normal plain film examination of the right knee.
[2023-09-23 22:32] VITALS: BP 164/84; PULSE 95; RESP 16; TEMP 36.6; O2SAT 96; BMI 30.4
[2023-09-23 23:54] VITALS: BP 151/94; PULSE 94; RESP 14; TEMP 36.7; O2SAT 97
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
[2023-09-24 08:16] VITALS: RESP 16
== END 2023-09-24 08:21 | disposition other institution (70) ==
PROVIDERS: Emergency Provider Student in an Organized Health Care Education/Training Program; PCP Internal Medicine
DX: S89.91XA Unspecified injury of right lower leg, initial encounter (principal); S09.90XA Unspecified injury of head, initial encounter; M25.561 Pain in right knee; M25.531 Pain in right wrist; W01.10XA Fall on same level from slipping, tripping and stumbling with subsequent striking against unspecified object, initial encounter; Y93.9 Activity, unspecified; Y92.9 Unspecified place or not applicable; Y99.9 Unspecified external cause status; Z91.81 History of falling
CPT/HCPCS: 73100; 73562; 99283

== ENCOUNTER 2023-10-01 11:02 | Outpatient (AMB) | payer MEDICARE, MEDICAID, SELFPAY ==
--- NOTE | 2023-10-01 11:06 | MHC.OFFVIS ---
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 with patient states he has been off Finasteride because they need a refill Allergies perfume Allergy (Intermediate, Verified 10/01/23 11:09) ITCHING Medication List - Last Reconciled 10/01/23 by Zan Andrews MD acetaminophen (Tylenol) 650 mg (2 x 325 mg) PO Q6H PRN aspirin (Aspirin Childrens) 81 mg PO DAILY atorvastatin 40 mg PO BEDTIME blood sugar diagnostic (Prodigy No Coding strips) Test 3 times daily [BRIEF LArge As directed] carbidopa-levodopa 25-100 mg 1.5 tabs PO QID compress.stocking,knee,reg,med As directed 20-30 mm HG diaper,brief,adult,disposable As directed - 4x a day divalproex 500 mg (4 x 125 mg) PO BID 90 days docusate sodium 100 mg (10 mL) PO DAILY PRN doxepin (Silenor) 6 mg PO BEDTIME PRN escitalopram oxalate 10 mg PO DAILY finasteride 5 mg PO DAILY 90 days gabapentin 300 mg PO BEDTIME insulin glargine (Basaglar KwikPen U-100 Insulin) 8 units subcut DAILY@1530 lancets (Prodigy Twist Top Lancet) As directed lisinopril 10 mg PO DAILY lorazepam 0.5 mg PO BID PRN melatonin 3 mg PO BEDTIME metformin 1,000 mg PO BID mirtazapine 15 mg PO BEDTIME 90 days polyethylene glycol 3350 (Miralax) 17 grams PO DAILY PRN 30 days [PRODIGY LANCET As directed] quetiapine 25 mg PO TID silver sulfadiazine 1% (SSD) 1 appl topical BID terazosin 10 mg PO BEDTIME 90 days [THICK IT As directed] topiramate (Topamax) 50 mg PO BID 90 days HPI HPI Comments History of Present Illness Details Ezekiel is a pleasant male. alf resident for schizophrenia, dementia, stroke. He seen for the following urologic conditions - lower lower urinary tract symptoms - recurrent UTI Accompanied by carer Refill medications 12 month follow-up Recurrent UTI Last documented UTI 2019 Klebsiella Pansensitive Lower urinary tract symptoms Combination medication terazosin 10 mg finasteride Incontinent Uses briefs Does have effectively emptying PFSH Medical History Buttock wound Nausea & vomiting Hospital discharge follow-up Confusion Urinary incontinence Weakness of both lower limbs Screening for eye condition Type 2 diabetes mellitus with hyperglycemia, without long-term current use of insulin Diabetes type 2, uncontrolled Unsteady gait Subungual hematoma of great toe Rash Bruising Annual physical exam Pedal edema Oropharyngeal dysphagia Occipital infarction Tubular adenoma of colon Type 2 diabetes mellitus with hyperglycemia Dysphagia Vitamin D deficiency Parkinson's disease Developmental delay, moderate Hypercholesteremia Gastroesophageal reflux disease Hypertension Metabolic encephalopathy Schizophrenia Depression BPH with obstruction/lower urinary tract symptoms Surgical History History of circumcision History of prostate surgery History of colonoscopy Family History Father Type II diabetes mellitus Mother Type II diabetes mellitus Social History Household Members: Other Housing: Other Housing Other:: [facility] Alcohol intake: unknown Comment: pt is sleeping resp even and unlabored. Patient Tobacco Use Status: Never used Tobacco e-Cigarette/Vaping Use: Never Used Second Hand Smoke Exposure: No Advance Directives Date on File: 07/11/21 service: No Current occupational status: disabled Current occupational exposures/hazards: No Cognitive needs: Yes Hearing needs: No Vision needs: No Review of Systems Const Denies chills and Denies fever(s) Card Reports no additional complaints and Denies syncope Resp Denies cough GI Denies abdominal pain and Denies heartburn Reports as per HPI and Denies change in libido Neuro Denies syncope Psych Denies change in libido Endo Denies change in libido Physical Exam Const General: cooperative, healthy appearing, comfortable and no acute distress Orientation/consciousness: patient oriented x3 HEENT Face and sinus: Yes normal facial exam Mouth: moist mucous membranes Neck Neck: Yes normal visual inspection, Yes full ROM and Yes trachea midline Chest Chest palpation & inspection: normal inspection of the chest Resp Effort & Inspection: normal respiratory effort, able to speak in complete sentences and no respiratory distress GI Inspection: Yes normal to inspection Back/Spine/Pelvis Cervical Spine: normal cervical lordosis Thoracic/Lumbar Spine: thoracic and lumbar spine normal to inspection Skin General skin exam: no rashes or lesions noted Neuro General: patient oriented x3, gait normal, tone normal and moves all extremities Extrem General: Yes normal to inspection and Yes capillary refill normal Assessment & Plan Assessment & Plan (1) BPH with obstruction/lower urinary tract symptoms: Code(s): N40.1 - Benign prostatic hyperplasia with lower urinary tract symptoms; N13.8 - Other obstructive and reflux uropathy (2) Mixed incontinence urge and stress (male)(female): Code(s): N39.46 - Mixed incontinence Plan Continue 1 year review Medications: New finasteride 5 mg PO DAILY 90 days 90 tabs 3RF N13.8 - Other obstructive and reflux uropathy, N40.1 - Benign prostatic hyperplasia with lower urinary tract symptoms diaper,brief,adult,disposable As directed - 4x a day 120 ea 11RF N39.46 - Mixed incontinence, R32 - Unspecified urinary incontinence Changed From terazosin open capsule and mix with soft foods 10 mg PO BEDTIME 30 days 30 caps 1RF N13.8 - Other obstructive and reflux uropathy, N40.0 - Benign prostatic hyperplasia without lower urinary tract symptoms, N40.1 - Benign prostatic hyperplasia with lower urinary tract symptoms To terazosin open capsule and mix with soft foods 10 mg PO BEDTIME 90 days 90 caps 3RF N13.8 - Other obstructive and reflux uropathy, N40.0 - Benign prostatic hyperplasia without lower urinary tract symptoms, N40.1 - Benign prostatic hyperplasia with lower urinary tract symptoms Patient Instructions: Imaging studies, laboratory and physical exam results were discussed and reviewed in detail. No major barriers to patient understanding were identified. An opportunity to ask questions regarding the treatment plan was provided. All questions were answered. The patient expressed understanding and agreement with the above treatment plan. The patient is aware they should contact our office by phone for worsening of their current condition or the appearance of new urologic symptoms. Compliance is encouraged with any medications and followup testing that is ordered. It is a privilege to participate in the urologic care of your patient. If you have any questions or concerns regarding treatment for the above conditions, or other urologic issues, please do not hesitate to contact me. The office telephone contact is [phone]. This note is constructed using voice recognition software. While every effort has been made to ensure accuracy salesperson men's and boys' clothing errors may have been included. Yours sincerely, Dr Zan Andrews MD, [facility] - Urology Providers of Expert, Compassionate Care for the Genitourinary System Coding Level of Care Code New Pt Level 4 (91841) Diagnoses BPH with obstruction/lower urinary tract symptoms N40.1; N13.8 Mixed incontinence urge and stress (male)(female) N39.46
== END 2023-10-01 11:28 | disposition home or self-care (01) ==
PROVIDERS: PCP Internal Medicine; Visit Provider Urology
DX: N40.1 Benign prostatic hyperplasia with lower urinary tract symptoms (principal); N13.8 Other obstructive and reflux uropathy; N39.46 Mixed incontinence
CPT/HCPCS: 99214

== ENCOUNTER → 2023-10-01 11:02 | Outpatient (BNVA) | payer MEDICARE, MEDICAID, SELFPAY | PROVIDERS: PCP Internal Medicine; Visit Provider Urology | DX: N40.1 Benign prostatic hyperplasia with lower urinary tract symptoms (principal); N13.8 Other obstructive and reflux uropathy; N39.46 Mixed incontinence | CPT/HCPCS: 99212 ==

== ENCOUNTER 2023-10-05 15:51 | Emergency (ER) | payer MEDICARE, MEDICAID, SELFPAY ==
[2023-10-05 16:05] VITALS: BP 162/86; BP 183/106; PULSE 79; PULSE 80; RESP 12; TEMP 36.6; O2SAT 97; O2SAT 98; BMI 24.3
--- NOTE | 2023-10-05 16:52 | ED.FALL ---
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 Staff a bedside states that he has been a little more aggressive lately, primary history is obtained from the staff as patient has underlying Alzheimer's/Parkinson's. Staff states that patient typically has urinary tract infection when he becomes more aggressive. Patient is difficult to understand that has complaints of breathing, abdominal pain, right forearm pain. Related Data Home Medications Medication Instructions Recorded Confirmed lancets 28 gauge (Prodigy Twist #100 ea 08/12/22 10/01/23 Top Lancet) insulin glargine 100 unit/mL (3 8 unit subcut DAILY@1530 01/09/23 10/01/23 mL) subcutaneous pen (GenomeQuestaglar AicentikPen U-100 Insulin) lorazepam 0.5 mg tablet 0.5 mg PO BID PRN Agitation 01/09/23 10/01/23 atorvastatin 40 mg tablet 40 mg PO BEDTIME 03/27/23 10/01/23 escitalopram oxalate 5 mg/5 mL 10 mg PO DAILY 07/24/23 10/01/23 oral solution quetiapine 25 mg tablet 25 mg PO TID 07/24/23 10/01/23 Previous Rx's Medication Instructions Recorded gabapentin 300 mg capsule 300 mg PO BEDTIME #90 caps 08/21/21 mirtazapine 15 mg disintegrating 15 mg PO BEDTIME 90 days #90 tabs 01/01/22 tablet THICK IT #1 ea 02/01/22 compress.stocking,knee,reg,med #2 ea 04/05/22 PRODIGY LANCET #100 ea 08/09/22 BRIEF LArge #100 ea 11/21/22 topiramate 50 mg tablet (Topamax) 50 mg PO BID 90 days #180 tabs 04/15/23 blood sugar diagnostic (Prodigy No #100 ea 05/13/23 Coding strips) aspirin 81 mg chewable tablet 81 mg PO DAILY #90 tabs 06/27/23 (Aspirin Childrens) doxepin 6 mg tablet (Silenor) 6 mg PO BEDTIME PRN sleep #30 tabs 07/03/23 melatonin 3 mg tablet 3 mg PO BEDTIME #90 tabs 07/09/23 polyethylene glycol 3350 17 gram 17 g PO DAILY PRN constipation 30 08/29/23 oral powder packet (Miralax) days #30 ea carbidopa 25 mg-levodopa 100 mg 1.5 tab PO QID #168 tabs 09/04/23 tablet lisinopril 10 mg tablet 10 mg PO DAILY #30 tabs 09/10/23 divalproex 125 mg capsule,delayed 500 mg (4 x 125 mg) PO BID 90 days 09/16/23 release sprinkle #720 caps docusate sodium 50 mg/5 mL oral 100 mg (10 mL) PO DAILY PRN 09/16/23 liquid constipation #473 mL metformin 1,000 mg tablet 1,000 mg PO BID #180 tabs 09/16/23 silver sulfadiazine 1 % topical 1 appl topical BID #20 grams 09/21/23 cream (SSD) diaper,brief,adult,disposable #120 ea 10/01/23 finasteride 5 mg tablet 5 mg PO DAILY 90 days #90 tabs 10/01/23 terazosin 10 mg capsule 10 mg PO BEDTIME 90 days #90 caps 10/01/23 acetaminophen 325 mg tablet 650 mg (2 x 325 mg) PO Q6H PRN 10/03/23 (Tylenol) pain #60 tabs Allergies Allergy/AdvReac Type Severity Reaction Status Date / Time perfume Allergy Intermediate ITCHING Verified 10/05/23 16:08 Review of Systems Review of Systems: Pertinent positives and negatives as stated in [facility] Past Medical History Source: nursing notes reviewed Onset Date is defined in the Problem List Problems that require an onset date and time if occurred within 24 hrs of arrival to the ED Aortic Dissection and Rupture; Neurologic impairment; Cardiopulmonary Arrest; Endotracheal Intubation; Insertion or Replacement of Mechanical Circulatory Assist Device Medical History Buttock wound Nausea & vomiting Hospital discharge follow-up Confusion Urinary incontinence Weakness of both lower limbs Screening for eye condition Type 2 diabetes mellitus with hyperglycemia, without long-term current use of insulin Diabetes type 2, uncontrolled Unsteady gait Subungual hematoma of great toe Rash Bruising Annual physical exam Pedal edema Oropharyngeal dysphagia Occipital infarction Tubular adenoma of colon Type 2 diabetes mellitus with hyperglycemia Dysphagia Vitamin D deficiency Parkinson's disease Developmental delay, moderate Hypercholesteremia Gastroesophageal reflux disease Hypertension Metabolic encephalopathy Schizophrenia Depression BPH with obstruction/lower urinary tract symptoms Surgical History History of circumcision History of prostate surgery History of colonoscopy Family History Family History Father Type II diabetes mellitus Mother Type II diabetes mellitus Social History Social History Household Members: Other Housing: Other Housing Other:: INTERMEDIATE Alcohol intake: unknown Comment: pt is sleeping resp even and unlabored. Patient Tobacco Use Status: Never used Tobacco Smoked in Last 30 Days: No e-Cigarette/Vaping Use: Never Used Second Hand Smoke Exposure: No Advance Directives: Yes Advance Directives on File: Yes Advance Directives Date on File: 07/11/21 service: No Current occupational status: disabled Current occupational exposures/hazards: No Cognitive needs: Yes Hearing needs: No Vision needs: No Physical Exam Vital Signs: Vital Signs: Last Vital Signs Temp 97.8 F 10/05/23 16:05 Pulse 79 10/05/23 16:05 Resp 12 10/05/23 16:05 BP 162/86 H 10/05/23 16:05 Pulse Ox 98 10/05/23 16:05 O2 Del Method Room Air 10/05/23 16:05 BMI result Body Mass Index 24.3 VITAL SIGNS: Reviewed. GENERAL: Well developed, well nourished, in no acute distress. HEAD: Normocephalic/atraumatic EYES: PERRLA, EOMI EARS: Ext canals without abnormality NOSE: Nares patent bilateral OROPHARYNX: no oral lesions noted, posterior pharynx clear NECK: Supple, no adenopathy LUNGS: Normal breath sounds. No adventitious sounds or accessory muscle use. SpO2<98> CARDIOVASCULAR: Regular rate and rhythm without noted murmurs, no JVD and 1+ pitting lower edema ABDOMEN: Soft, non-tender, non-distended with bowel sounds. There is noted healing wound to the anterior abdomen which was initially sustained from hot coffee PELVIS: Stable, nontender MUSCULOSKELETAL: No tenderness, deformities, or effusions noted on gross inspection. EXTREMITIES: No cyanosis, clubbing or edema. FINGERS on LEFT Hand: Old injury, burn, appears to be healing well. No evidence of infection. RLE: No deformity noted at the right forearm, no erythema or induration, neurovascularly intact distal but patient endorses tenderness to palpation at the mid forearm. SKIN: Inspection of the skin reveals no rashes NEUROLOGIC: Alert and strength and sensation to light touch were grossly intact x 4, tremulousness at baseline. Medical Decision Making Medical Decision Making [facility] Narrative: 73-year-old male with history and clinical presentation, DDX: Behavior change, some weakness noted. I reviewed all investigations and hematologic indices are chronically stable without leukocytosis or left shift and there is no thrombocytopenia there is a noted stable normocytic anemia. Coagulation studies within normal limits. Chemistry indices do not demonstrate an BEULAH and there is no electrolyte or liver enzyme derangements. High sensitivity troponin is undetectable without acute changes on EKG. Urinalysis negative for UTI or hematuria. Chest x-ray negative for infiltrates or venous congestion otherwise my interpretation is in agreement with radiology's impression. X-ray of forearm does not demonstrate fracture. My interpretation is that patient may be experiencing behavioral issues associated with underlying Alzheimer and Parkinson's. Will need to have more close follow-up with the primary care doctor, Dr. Bender. Differential Diagnosis Differential Diagnoses: The differential diagnosis associated with the presentation includes Please see the discussion above Admission/Observation Consideration of admission/observation: Escalation of care including admission/observation considered Please see the discussion above Lab Data [facility] Lab Attestation statement: I reviewed the patient's lab results. Please see the discussion above 10/05/23 16:32 10/05/23 16:32 Labs: Lab Results 10/05/23 10/05/23 Range/Units 16:32 17:30 WBC 4.5 L (4.8-10.8) X10*3/uL RBC 4.18 L (4.60-5.80) X10*6/uL Hgb 12.7 L (14.0-18.0) g/dl Hct 39.4 L (42.0-52.0) % MCV 94.3 (80.0-98.0) fL MCH 30.4 (27.0-33.0) pg MCHC 32.2 (31.0-36.0) g/dl RDW 13.9 (11.0-16.0) % Plt Count 194 (160-400) X10*3/uL MPV 8.0 L (9.4-12.4) fL Immature Gran % (Auto) 0.4 (0.0-0.4) % Neut % (Auto) 59.3 (45-73) % Lymph % (Auto) 26.5 (20-40) % [place] % (Auto) 12.1 H (2-11) % Eos % (Auto) 1.3 (0-4) % Baso % (Auto) 0.4 (0-2) % Lymph # (Auto) 1.2 (1.2-4.9) X10*3/uL [place] # (Auto) 0.5 (0.1-1.2) X10*3/uL Eos # (Auto) 0.1 (0.0-0.4) X10*3/uL Baso # (Auto) 0.0 (0.0-0.2) X10*3/uL Abs Immat Gran (auto) 0.02 (0.00-0.03) X10*3/uL Absolute Neuts (auto) 2.6 (2.0-8.3) x10*3/uL Absolute Nucleated RBC 0.000 (0.0-0.012) X10*3/uL Nucleated RBC % (auto) 0.0 (0.0-0.2) /100WBC PT 13.1 (11.1-13.3) SEC INR 1.1 (0.9-1.1) Sodium 139 (135-145) mmol/L Potassium 4.2 (3.3-5.1) mmol/L Chloride 105 (96-108) mmol/L Carbon Dioxide 24 (22-29) mmol/L Anion Gap 14 (12-20) BUN 15 (9-16) mg/dL Creatinine 0.90 (0.5-1.4) mg/dL Estim Creat Clear Calc 64.9 Estimated GFR > 60 Random Glucose 105 (60-115) mg/dL Calcium 9.0 (8.4-10.2) mg/dL Total Bilirubin 0.3 (0.0-1.0) mg/dL AST 11 (5-37) U/L ALT < 5 (0-40) U/L Alkaline Phosphatase 62 (39-117) U/L Troponin I High Sens < 2.7 (<3.5-35.0) ng/L B-Natriuretic Peptide 17 (<100) pg/mL Total Protein 6.3 L (6.5-8.0) g/dL Albumin 3.9 (3.5-5.0) g/dL Urine Color Yellow Urine Appearance Clear Urine pH 7.0 (5.0-9.0) Ur Specific [place] 1.020 (1.005-1.025) Urine Protein Negative (Neg-Trace) mg/dL Urine Glucose (UA) 250 H (Negative) mg/dL Urine Ketones Trace (Negative) mg/dL Urine Blood Negative (Negative) Urine Nitrite Negative (Negative) Ur Leukocyte Esterase Negative (Negative) Independent Interpretation I performed an independent interpretation of an: EKG Interpretation: Normal sinus rhythm, HR-77, no STEMI, CA/QRS/QTC is within normal limits. Radiology Impression Discussion of test interpretation with radiology: I have reviewed the radiologist's reading. Radiologist Impression: Please see the discussion above External Record Review External record reviewed: Outpatient record, Prior outpatient labs and Prior outpatient radiology Discharge Plan Discharge Clinical Impression: Chest pain, Forearm pain, Fall Patient Disposition: Xfer Other Instructions: Fall Prevention for Older Adults (ED), Noncardiac Chest Pain (ED), Arm Pain (ED) Additional Instructions: 1. Resume all home medications as prescribed. 2. Follow-up with your primary care doctor on Friday morning. Return to the ER for any worsening symptoms. Prescriptions: No Action gabapentin 300 mg capsule 300 mg PO BEDTIME Qty: 90 3RF mirtazapine 15 mg tablet,disintegrating 15 mg PO BEDTIME 90 Days Qty: 90 2RF (DME) THICK IT See Rx Instructions .Route .MEDSUPPLY Qty: 1 0RF Rx Instructions: As directed (DME) PRODIGY LANCET See Rx Instructions .Route .MEDSUPPLY Qty: 100 12RF Rx Instructions: As directed topiramate [Topamax] 50 mg tablet 50 mg PO BID 90 Days Qty: 180 2RF Rx Instructions: crush and mix with soft foods (DME) Prodigy No Coding Strip See Rx Instructions .Route Qty: 100 6RF Rx Instructions: Test 3 times daily doxepin [Silenor] 6 mg tablet 6 mg PO BEDTIME PRN (Reason: sleep) Qty: 30 0RF melatonin 3 mg tablet 3 mg PO BEDTIME Qty: 90 3RF Rx Instructions: crush and mix with soft foods polyethylene glycol 3350 [Miralax] 17 gram powder in packet 17 g PO DAILY PRN (Reason: constipation) 30 Days Qty: 30 3RF carbidopa-levodopa 25-100 mg tablet 1.5 tab PO QID Qty: 168 1RF Rx Instructions: 37.5 - 150 mg to be taken 4 times a day divalproex 125 mg capsule, delayed rel sprinkle 500 mg PO BID 90 Days Qty: 720 2RF docusate sodium 50 mg/5 mL liquid 100 mg PO DAILY PRN (Reason: constipation) Qty: 473 1RF metformin 1,000 mg tablet 1,000 mg PO BID Qty: 180 3RF acetaminophen [Tylenol] 325 mg tablet 650 mg PO Q6H PRN (Reason: pain) Qty: 60 0RF Rx Instructions: for gtemp > 101 YO,muscle ache, joint pains pain in legs, pain from pressure sore quetiapine 25 mg tablet 25 mg PO TID escitalopram oxalate 5 mg/5 mL solution 10 mg PO DAILY silver sulfadiazine [SSD] 1 % cream 1 appl topical BID Qty: 20 0RF Rx Instructions: apply a 1.5 mm thickness insulin glargine [Basaglar KwikPen U-100 Insulin] 100 unit/mL (3 mL) insulin pen 8 unit subcut DAILY@1530 lorazepam 0.5 mg tablet 0.5 mg PO BID PRN (Reason: Agitation) (DME) compress.stocking,knee,reg,med Misc See Rx Instructions .Route Qty: 2 0RF Rx Instructions: As directed 20-30 mm HG atorvastatin 40 mg tablet 40 mg PO BEDTIME (DME) BRIEF LArge See Rx Instructions .Route .MEDSUPPLY Qty: 100 11RF Rx Instructions: As directed aspirin [Aspirin Childrens] 81 mg tablet,chewable 81 mg PO DAILY Qty: 90 3RF lisinopril 10 mg tablet 10 mg PO DAILY Qty: 30 3RF (DME) lancets [Prodigy Twist Top Lancet] 28 gauge misc See Rx Instructions .ROUTE .MEDSUPPLY Qty: 100 Rx Instructions: As directed finasteride 5 mg tablet 5 mg PO DAILY 90 Days Qty: 90 3RF terazosin 10 mg capsule 10 mg PO BEDTIME 90 Days Qty: 90 3RF Rx Instructions: open capsule and mix with soft foods (DME) diaper,brief,adult,disposable Misc See Rx Instructions .ROUTE .MEDSUPPLY Qty: 120 11RF Rx Instructions: As directed - 4x a day Referrals: Napoleon,Claire Christianson MD [Primary Care Provider] - Print Language: Sami
--- NOTE | 2023-10-05 18:49 | MHC.EDTECH ---
Petra booked at 1849.
[2023-10-05 19:30] VITALS: BP 146/90; PULSE 87; RESP 18; O2SAT 97
== END 2023-10-05 19:30 | disposition other institution (70) ==
PROVIDERS: Emergency Provider Student in an Organized Health Care Education/Training Program; PCP Internal Medicine
DX: R07.9 Chest pain, unspecified (principal); R10.9 Unspecified abdominal pain; M79.631 Pain in right forearm; I10 Essential (primary) hypertension; E11.9 Type 2 diabetes mellitus without complications; G20.A1 Parkinson's disease without dyskinesia, without mention of fluctuations; F20.9 Schizophrenia, unspecified; D64.9 Anemia, unspecified; Z91.81 History of falling
CPT/HCPCS: 36415; 51701; 71045; 73090; 80053; 81003; 83880; 84484; 85025; 85610; 93005; 99281; 99283; 99284

== ENCOUNTER → 2023-10-05 16:11 | Outpatient (BNV) | payer MEDICARE, MEDICAID, SELFPAY | PROVIDERS: Emergency Provider Student in an Organized Health Care Education/Training Program; PCP Internal Medicine; Visit Provider Internal Medicine Cardiovascular Disease | DX: R07.9 Chest pain, unspecified (principal) | CPT/HCPCS: 93010 ==

== ENCOUNTER 2023-10-05 20:21 | Emergency (ER) | payer MEDICARE, MEDICAID, SELFPAY ==
[2023-10-05 20:29] VITALS: BP 154/82; PULSE 80; RESP 18; TEMP 36.8; O2SAT 96; BMI 28.3
--- NOTE | 2023-10-05 22:09 | ED.GENADULT ---
HPI - General Adult General Chief complaint: General Medical Stated complaint: return to sender Time Seen by Provider: 10/05/23 21:24 Source: EMS Mode of arrival: EMS History of Present Illness HPI narrative: 73-year-old male arrives via EMS, there was a miscommunication about the destination, EMS does not report any acute status changes with the patient. I spoke with patient and he appears to be well and wants to know if he is going home. Related Data Home Medications Medication Instructions Recorded Confirmed lancets 28 gauge (Prodigy Twist #100 ea 08/12/22 10/01/23 Top Lancet) insulin glargine 100 unit/mL (3 8 unit subcut DAILY@1530 01/09/23 10/01/23 mL) subcutaneous pen (Basaglar KwikPen U-100 Insulin) lorazepam 0.5 mg tablet 0.5 mg PO BID PRN Agitation 01/09/23 10/01/23 atorvastatin 40 mg tablet 40 mg PO BEDTIME 03/27/23 10/01/23 escitalopram oxalate 5 mg/5 mL 10 mg PO DAILY 07/24/23 10/01/23 oral solution quetiapine 25 mg tablet 25 mg PO TID 07/24/23 10/01/23 Previous Rx's Medication Instructions Recorded gabapentin 300 mg capsule 300 mg PO BEDTIME #90 caps 08/21/21 mirtazapine 15 mg disintegrating 15 mg PO BEDTIME 90 days #90 tabs 01/01/22 tablet THICK IT #1 ea 02/01/22 compress.stocking,knee,reg,med #2 ea 04/05/22 PRODIGY LANCET #100 ea 08/09/22 BRIEF LArge #100 ea 11/21/22 topiramate 50 mg tablet (Topamax) 50 mg PO BID 90 days #180 tabs 04/15/23 blood sugar diagnostic (Prodigy No #100 ea 05/13/23 Coding strips) aspirin 81 mg chewable tablet 81 mg PO DAILY #90 tabs 06/27/23 (Aspirin Childrens) doxepin 6 mg tablet (Silenor) 6 mg PO BEDTIME PRN sleep #30 tabs 07/03/23 melatonin 3 mg tablet 3 mg PO BEDTIME #90 tabs 07/09/23 polyethylene glycol 3350 17 gram 17 g PO DAILY PRN constipation 30 08/29/23 oral powder packet (Miralax) days #30 ea carbidopa 25 mg-levodopa 100 mg 1.5 tab PO QID #168 tabs 09/04/23 tablet lisinopril 10 mg tablet 10 mg PO DAILY #30 tabs 09/10/23 divalproex 125 mg capsule,delayed 500 mg (4 x 125 mg) PO BID 90 days 09/16/23 release sprinkle #720 caps docusate sodium 50 mg/5 mL oral 100 mg (10 mL) PO DAILY PRN 09/16/23 liquid constipation #473 mL metformin 1,000 mg tablet 1,000 mg PO BID #180 tabs 09/16/23 silver sulfadiazine 1 % topical 1 appl topical BID #20 grams 09/21/23 cream (SSD) diaper,brief,adult,disposable #120 ea 10/01/23 finasteride 5 mg tablet 5 mg PO DAILY 90 days #90 tabs 10/01/23 terazosin 10 mg capsule 10 mg PO BEDTIME 90 days #90 caps 10/01/23 acetaminophen 325 mg tablet 650 mg (2 x 325 mg) PO Q6H PRN 10/03/23 (Tylenol) pain #60 tabs Allergies Allergy/AdvReac Type Severity Reaction Status Date / Time perfume Allergy Intermediate ITCHING Verified 10/05/23 16:08 Review of Systems Review of Systems: Yes Unobtainable due to mental condition PMFSH Past Medical History Source: nursing notes reviewed Onset Date is defined in the Problem List Problems that require an onset date and time if occurred within 24 hrs of arrival to the ED Aortic Dissection and Rupture; Neurologic impairment; Cardiopulmonary Arrest; Endotracheal Intubation; Insertion or Replacement of Mechanical Circulatory Assist Device Medical History Buttock wound Nausea & vomiting Hospital discharge follow-up Confusion Urinary incontinence Weakness of both lower limbs Screening for eye condition Type 2 diabetes mellitus with hyperglycemia, without long-term current use of insulin Diabetes type 2, uncontrolled Unsteady gait Subungual hematoma of great toe Rash Bruising Annual physical exam Pedal edema Oropharyngeal dysphagia Occipital infarction Tubular adenoma of colon Type 2 diabetes mellitus with hyperglycemia Dysphagia Vitamin D deficiency Parkinson's disease Developmental delay, moderate Hypercholesteremia Gastroesophageal reflux disease Hypertension Metabolic encephalopathy Schizophrenia Depression BPH with obstruction/lower urinary tract symptoms Surgical History History of circumcision History of prostate surgery History of colonoscopy Family History Family History Father Type II diabetes mellitus Mother Type II diabetes mellitus Social History Social History Household Members: Other Housing: Other Housing Other:: LONGTERM Alcohol intake: unknown Comment: pt is sleeping resp even and unlabored. Patient Tobacco Use Status: Never used Tobacco e-Cigarette/Vaping Use: Never Used Second Hand Smoke Exposure: No Advance Directives: Yes Advance Directives on File: Yes Advance Directives Date on File: 07/11/21 service: No Current occupational status: disabled Current occupational exposures/hazards: No Cognitive needs: Yes Hearing needs: No Vision needs: No Physical Exam ED Vital Signs: Vital Signs - 24 hr 10/05/23 20:29 Temperature 98.2 F Pulse Rate 80 Respiratory Rate 18 Blood Pressure 154/82 H Pulse Oximetry 96 Oxygen Delivery Method Room Air BMI result Body Mass Index 28.3 GENERAL: Well nourished, in no acute distress. HEAD: Normocephalic/atraumatic EYES: PERRLA, EOMI LUNGS: Normal breath sounds. No adventitious sounds or accessory muscle use. SpO2<96> CARDIOVASCULAR: Regular rate and rhythm without noted murmurs ABDOMEN: Soft, non-tender, non-distended with bowel sounds. NEUROLOGIC: Alert and oriented x 1. Strength and sensation to light touch were grossly intact x 4. Medical Decision Making Medical Decision Making MDM Narrative: There is no further workup completed on this patient as he just had lab work and evaluation done. He is otherwise discharged to the correct address. Discharge Plan Discharge Clinical Impression: Fall, Chest pain Patient Disposition: Home, Self-Care Additional Instructions: Follow-up with primary care doctor Prescriptions: No Action gabapentin 300 mg capsule 300 mg PO BEDTIME Qty: 90 3RF mirtazapine 15 mg tablet,disintegrating 15 mg PO BEDTIME 90 Days Qty: 90 2RF (DME) THICK IT See Rx Instructions .Route .MEDSUPPLY Qty: 1 0RF Rx Instructions: As directed (DME) PRODIGY LANCET See Rx Instructions .Route .MEDSUPPLY Qty: 100 12RF Rx Instructions: As directed topiramate [Topamax] 50 mg tablet 50 mg PO BID 90 Days Qty: 180 2RF Rx Instructions: crush and mix with soft foods (DME) Prodigy No Coding Strip See Rx Instructions .Route Qty: 100 6RF Rx Instructions: Test 3 times daily doxepin [Silenor] 6 mg tablet 6 mg PO BEDTIME PRN (Reason: sleep) Qty: 30 0RF melatonin 3 mg tablet 3 mg PO BEDTIME Qty: 90 3RF Rx Instructions: crush and mix with soft foods polyethylene glycol 3350 [Miralax] 17 gram powder in packet 17 g PO DAILY PRN (Reason: constipation) 30 Days Qty: 30 3RF carbidopa-levodopa 25-100 mg tablet 1.5 tab PO QID Qty: 168 1RF Rx Instructions: 37.5 - 150 mg to be taken 4 times a day divalproex 125 mg capsule, delayed rel sprinkle 500 mg PO BID 90 Days Qty: 720 2RF docusate sodium 50 mg/5 mL liquid 100 mg PO DAILY PRN (Reason: constipation) Qty: 473 1RF metformin 1,000 mg tablet 1,000 mg PO BID Qty: 180 3RF acetaminophen [Tylenol] 325 mg tablet 650 mg PO Q6H PRN (Reason: pain) Qty: 60 0RF Rx Instructions: for gtemp > 101 YO,muscle ache, joint pains pain in legs, pain from pressure sore quetiapine 25 mg tablet 25 mg PO TID escitalopram oxalate 5 mg/5 mL solution 10 mg PO DAILY silver sulfadiazine [SSD] 1 % cream 1 appl topical BID Qty: 20 0RF Rx Instructions: apply a 1.5 mm thickness insulin glargine [Basaglar KwikPen U-100 Insulin] 100 unit/mL (3 mL) insulin pen 8 unit subcut DAILY@1530 lorazepam 0.5 mg tablet 0.5 mg PO BID PRN (Reason: Agitation) (DME) compress.stocking,knee,reg,med Misc See Rx Instructions .Route Qty: 2 0RF Rx Instructions: As directed 20-30 mm HG atorvastatin 40 mg tablet 40 mg PO BEDTIME (DME) BRIEF LArge See Rx Instructions .Route .MEDSUPPLY Qty: 100 11RF Rx Instructions: As directed aspirin [Aspirin Childrens] 81 mg tablet,chewable 81 mg PO DAILY Qty: 90 3RF lisinopril 10 mg tablet 10 mg PO DAILY Qty: 30 3RF (DME) lancets [Prodigy Twist Top Lancet] 28 gauge misc See Rx Instructions .ROUTE .MEDSUPPLY Qty: 100 Rx Instructions: As directed finasteride 5 mg tablet 5 mg PO DAILY 90 Days Qty: 90 3RF terazosin 10 mg capsule 10 mg PO BEDTIME 90 Days Qty: 90 3RF Rx Instructions: open capsule and mix with soft foods (DME) diaper,brief,adult,disposable Misc See Rx Instructions .ROUTE .MEDSUPPLY Qty: 120 11RF Rx Instructions: As directed - 4x a day
== END 2023-10-05 22:30 | disposition home or self-care (01) ==
PROVIDERS: Emergency Provider Student in an Organized Health Care Education/Training Program
DX: R07.9 Chest pain, unspecified (principal)
CPT/HCPCS: 99281

== ENCOUNTER 2023-10-09 14:02 | Outpatient (AMB) | payer MEDICARE, MEDICAID, SELFPAY ==
[2023-10-09 14:05] VITALS: BP 126/78; PULSE 88; O2SAT 96; BMI 29.1
--- NOTE | 2023-10-09 14:05 | MHC.PC.OV ---
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 Since that time was in the emergency room 4 times 1 from a burn on the abdomen and fingers, 2nd 1 fall from bed with x-rays of the knee and wrist normal 3rd with the fall from standing and the next 1 was a return to ER due to miscommunication. Patient follows up with urology also due to the BPH has been given finasteride.. burn on the L finger and supraumbilical area [facility] Medical History Buttock wound Nausea & vomiting Hospital discharge follow-up Confusion Urinary incontinence Weakness of both lower limbs Screening for eye condition Type 2 diabetes mellitus with hyperglycemia, without long-term current use of insulin Diabetes type 2, uncontrolled Unsteady gait Subungual hematoma of great toe Rash Bruising Annual physical exam Pedal edema Oropharyngeal dysphagia Occipital infarction Tubular adenoma of colon Type 2 diabetes mellitus with hyperglycemia Dysphagia Vitamin D deficiency Parkinson's disease Developmental delay, moderate Hypercholesteremia Gastroesophageal reflux disease Hypertension Metabolic encephalopathy Schizophrenia Depression BPH with obstruction/lower urinary tract symptoms Surgical History History of circumcision History of prostate surgery History of colonoscopy Family History Father Type II diabetes mellitus Mother Type II diabetes mellitus Social History Household Members: Other Housing: Other Housing Other:: [facility] Alcohol intake: unknown Comment: pt is sleeping resp even and unlabored. Patient Tobacco Use Status: Never used Tobacco e-Cigarette/Vaping Use: Never Used Second Hand Smoke Exposure: No Advance Directives Date on File: 07/11/21 service: No Current occupational status: disabled Current occupational exposures/hazards: No Cognitive needs: Yes Hearing needs: No Vision needs: No Questionnaire Thrive Questionnaire Date Thrive assessed: 11/21/22 AUDIT C Alcohol Use Questionnaire (AUDIT-C) 1. How often do you have a drink containing alcohol?: Never Total Score: 0 Score Reviewed/Action Taken: No NAVIN-7 AMB Questionnaire NAVIN-7 Date NAVIN - 7 assessed: 10/09/23 Source: Developed by Drs. Ran Nieves, Bertha Lao, Natanael Chen and colleagues, with an educational sanford from [employer]. Physical exam (Primary Care) Vital Signs: Last Vital Signs Pulse 88 10/09/23 14:05 BP 126/78 10/09/23 14:05 Pulse Ox 96 10/09/23 14:05 Oxygen Delivery Method Room Air 10/09/23 14:05 Care Plan Goal for BP management: L 3rd and 4th finger scabbed wound BMI result Body Mass Index 29.1 Tobacco/Smoking Status: Tobacco use Status Tobacco use date assessed 10/09/23 10/09/23 14:16 Patient Tobacco Use Status Never used Tobacco 10/09/23 14:16 e-Cigarette/Vaping Use Never Used 10/09/23 14:16 Thrive Assessment: Date of Thrive Assessment Date Thrive assessed 11/21/22 10/09/23 14:16 Const General: alert; No acute distress Eyes Conjunctivae: conjunctivae normal Resp Auscultation: clear to auscultation bilaterally Cardio Rate: regular rate Rhythm: regular rhythm GI Inspection: Yes normal to inspection Skin Full body images: 1. 2x1 erythematous area Extrem General: Yes normal to inspection and No edema Hand/finger images: 1. 3 x 1 cm scabbed wound 2. 3rd finger 1 cm scabbed Results AMB Hemoglobin A1c AMB Hemoglobin A1c 6.2 % Last Edit by JOO Garcia on 10/09/23 14:20 Results Reviewed Results Reviewed: Laboratory Last Values Hgb A1c (Clinic) 6.2 % (4.0-6.0) H 10/09/23 12:55 Assessment and Plan Assessment & Plan (1) Type 2 diabetes mellitus with hyperglycemia: Code(s): E11.65 - Type 2 diabetes mellitus with hyperglycemia Plan: Decrease the amount of carbohydrate intake, pasta, bread, rice and potatoes are all sugar and that is aside from all the sweet stuff, remember that fruits are good but they are Sweet also. Patient is on insulin 8 units once a day metformin a 1000 mg twice a day (2) Gait instability: Code(s): R26.81 - Unsteadiness on feet Plan: Discussed about ways to prevent falls patient does have quetiapine 3 times a day mirtazapine at bedtime lorazepam gabapentin. (3) Schizophrenia: Comment: Dr. Duffy; 20 min reviewing chart evaluating patient and documenting Code(s): F20.9 - Schizophrenia, unspecified Qualifiers: Schizophrenia type: undifferentiated schizophrenia Qualified Code(s): F20.3 - Undifferentiated schizophrenia Plan: Continue follow-up with psychiatry (4) BPH with obstruction/lower urinary tract symptoms: Code(s): N40.1 - Benign prostatic hyperplasia with lower urinary tract symptoms; N13.8 - Other obstructive and reflux uropathy Plan: Continue to follow-up urology. 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
== END 2023-10-09 14:45 | disposition home or self-care (01) ==
PROVIDERS: PCP Internal Medicine; Visit Provider Internal Medicine
DX: E11.65 Type 2 diabetes mellitus with hyperglycemia (principal); F20.3 Undifferentiated schizophrenia; G20.C Parkinsonism, unspecified; R26.81 Unsteadiness on feet; N40.1 Benign prostatic hyperplasia with lower urinary tract symptoms; N13.8 Other obstructive and reflux uropathy
CPT/HCPCS: 83036; 99214

== ENCOUNTER 2024-01-15 12:11 | Outpatient (AMB) | payer MEDICARE, MEDICAID, SELFPAY ==
--- NOTE | 2024-01-15 12:14 | AM.OFFVISMDC ---
Intake Vital Signs 01/15/24 12:16 Height 5 ft 4 in Weight 160 lb 7.944 oz BMI 27.5 BP 134/70 Blood Pressure Location Lt brachial Position Sitting Pulse 77 Pulse Source Pulse Oximeter Pulse Oximetry (%) 98 Oxygen Delivery Method Room Air Intake Visit Reasons: AWV Allergies perfume Allergy (Intermediate, Verified 01/15/24 12:17) ITCHING Medication List - Last Reconciled 01/15/24 by Claire Bender MD aspirin (Aspirin Childrens) 81 mg PO DAILY atorvastatin 40 mg PO BEDTIME blood sugar diagnostic (Prodigy No Coding strips) Test 3 times daily [BRIEF LArge As directed] carbidopa-levodopa 25-100 mg 1.5 tabs PO QID compress.stocking,knee,reg,med As directed 20-30 mm HG diaper,brief,adult,disposable As directed - 4x a day divalproex 500 mg (4 x 125 mg) PO BID 90 days escitalopram oxalate 10 mg PO DAILY finasteride 5 mg PO DAILY 90 days gabapentin 100 mg PO TID insulin glargine (Basaglar KwikPen U-100 Insulin) 8 units subcut DAILY@1530 lancets (Prodigy Twist Top Lancet) As directed lisinopril 10 mg PO DAILY lorazepam 0.5 mg PO BID PRN metformin 1,000 mg PO BID mirtazapine 15 mg PO BEDTIME 90 days olanzapine (Zyprexa) 10 mg PO BEDTIME [PRODIGY LANCET As directed] terazosin 10 mg PO BEDTIME 90 days [THICK IT As directed] topiramate (Topamax) 50 mg PO BID 90 days HPI AWV HPI Details 73-year-old overweight male with schizophrenia with controlled diabetes mellitus BPH Parkinson's disease coming in for annual well visit last seen in September 2023. Patient's colonoscopy is due. [facility] Medical History (Updated 01/15/24 @ 18:59 by Claire Bender MD) Buttock wound Nausea & vomiting Hospital discharge follow-up Confusion Urinary incontinence Weakness of both lower limbs Screening for eye condition Type 2 diabetes mellitus with hyperglycemia, without long-term current use of insulin Diabetes type 2, uncontrolled Unsteady gait Subungual hematoma of great toe Rash Bruising Annual physical exam Pedal edema Oropharyngeal dysphagia Occipital infarction Tubular adenoma of colon Type 2 diabetes mellitus with hyperglycemia Dysphagia Vitamin D deficiency Parkinson's disease Developmental delay, moderate Hypercholesteremia Gastroesophageal reflux disease Hypertension Metabolic encephalopathy Schizophrenia Depression BPH with obstruction/lower urinary tract symptoms Surgical History History of circumcision History of prostate surgery History of colonoscopy Family History Father Type II diabetes mellitus Mother Type II diabetes mellitus Social History Household Members: Other Housing: Other Housing Other:: [place] Alcohol intake: unknown Comment: pt is sleeping resp even and unlabored. Patient Tobacco Use Status: Never used Tobacco e-Cigarette/Vaping Use: Never Used Second Hand Smoke Exposure: No Advance Directives Date on File: 07/11/21 service: No Current occupational status: disabled Current occupational exposures/hazards: No Cognitive needs: Yes Hearing needs: No Vision needs: No Questionnaire Medicare Wellness Checkup [age] What gender do you identify with?: male During the past 4 weeks, how much have you been bothered by emotional problems such as feeling anxious, depressed, irritable, sad or downhearted, and blue?: moderately During the past 4 weeks, has your physical & emotional health limited your social activities with family, friends, neighbors, or groups?: not at all During the past 4 weeks, how much bodily pain have you generally had?: no pain During the past 4 weeks, was someone available to help you if you needed & wanted help?: yes, as much as I wanted During the past 4 weeks, what was the hardest physical activity you could do for at least 2 minutes?: very light Can you get to places out of walking distance without help? (For eg., can you travel alone on buses, taxis or drive your car?): No Can you go shopping for groceries or clothes without someone's help?: No Can you prepare your own meals?: No Can you do your housework without help?: No Because of any health problems, do you need the help of another person with your personal care needs such as eating, bathing, dressing or getting around the house?: Yes Can you handle your own money without help?: No During the past 4 weeks, how would you rate your health in general?: fair During the past 4 weeks how have things been going for you?: pretty well Are you having difficulties driving your car?: not applicable, I don't use a car Do you always fasten your seat belt when you are in a car?: yes, usually During past 4 weeks, have you been bothered by the following: never: Falling or dizzy when standing up, Sexual problems?, Teeth or denture problems? and Problems using the telephone? and sometimes: Trouble eating well? and Tiredness or fatigue? Have you fallen 2 or more times in the past year?: Yes Are you afraid of falling?: Yes Are you a smoker?: no During the past 4 weeks, how many drinks of wine, beer, or other alcoholic beverages did you have?: no alcohol at all Do you exercise for about 20 minutes 3 or more times a week?: no, I usually do not exercise this much Have you been given information to help with the following?: no: Hazards in your house that might hurt you? and no: Keeping track of your medications? How often do you have trouble taking medicines the way you have been told to take them?: I always take medicine as prescribed How confident are you that you can control & manage most of your health problems?: not very confident What is your race?: or origin or descent PHQ-9 Over the last 2 weeks, how often have you been bothered by any of the following problems? 1. Little interest or pleasure in doing things: not at all 2. Feeling down, depressed, or hopeless: several days 3. Trouble falling or staying asleep, or sleeping too much: more than half the days 4. Feeling tired or having little energy: more than half the days 5. Poor appetite or overeating: more than half the days 6. Feeling bad about yourself - or that you are a failure or have let yourself or your family down: not at all 7. Trouble concentrating on things, such as reading the newspaper or watching television: not at all 8. Moving or speaking so slowly that other people could have noticed. Or the opposite - being so fidgety or restless that you have been moving around a lot more than usual: not at all 9. Thoughts that you would be better off or of hurting yourself in some way: not at all Total score: 7 Depression Screening Interpretation: Positive Depression Screening Done: Yes Source: Developed by Drs. Ran Nieves, Bertha Lao, Natanael Chen and colleagues, with an educational sanford from [employer]. Review of Systems Const Denies poor appetite and Denies weakness Eyes Denies no additional complaints ENT Reports Normal hearing present, Denies dizziness, Denies nasal congestion, Denies tinnitus and Denies sore throat Card Denies chest pain, Denies syncope, Denies rapid heart rate and Denies dyspnea Resp Denies cough and Denies dyspnea GI Denies change in stool character, Reports constipation, Denies diarrhea, Denies nausea and Denies vomiting Denies dysuria and Denies urinary frequency Neuro Reports Normal hearing present, Denies confusion, Denies dizziness, Denies syncope and Denies weakness Psych Denies confusion Physical Exam Vital Signs: Last Vital Signs Pulse 77 01/15/24 12:16 BP 134/70 01/15/24 12:16 Pulse Ox 98 01/15/24 12:16 Oxygen Delivery Method Room Air 01/15/24 12:16 BMI result Body Mass Index 27.5 Const General: No confusion Orientation/consciousness: No confusion HEENT Head: Yes normocephalic Ears: external ears normal and TM's normal bilaterally Face and sinus: Yes normal facial exam Mouth: moist mucous membranes Throat: Yes tonsils normal Eyes Conjunctivae: conjunctivae normal Pupils: Equal, round and reactive pupils present and Pupil accommodation reflex normal Direct Ophthalmoscopy: normal light reflex Neck Neck: No lymphadenopathy Thyroid: Thyroid normal Chest Chest palpation & inspection: normal inspection of the chest Resp Effort & Inspection: normal respiratory effort and no audible wheezes Auscultation: clear to auscultation bilaterally, no crackles, no wheezes and lung sounds not diminished Cardio Rate: regular rate Rhythm: regular rhythm Peripheral pulses: radial pulses present and dorsalis pedis present GI Palpation (GI): no masses Auscultation: normal bowel sounds and normoactive bowel sounds Rectal Exam - Male: Yes deferred Skin General skin exam: no rashes or lesions noted Rashes: no rashes Neuro General: No confusion Cranial nerves: Yes Equal, round and reactive pupils present and Yes Normal hearing present Cognition (Neuro): normal cognition Gait exam (Neuro): Normal gait present Motor exam (neuro): 5/5 motor strength present throughout Deep tendon reflexes (DTR's): Right brachioradialis reflex intensity grade: 2+, Left brachioradialis reflex intensity grade: 2+, Right patellar reflex intensity grade: 2+ and Left patellar reflex intensity grade: 2+ Extrem General: No edema Results AMB Hemoglobin A1c AMB Hemoglobin A1c 5.5 % Last Edit by Mojgan Chadwick CMA on 01/15/24 12:50 Results Reviewed Results Reviewed: Laboratory Last Values Hgb A1c (Clinic) 5.5 % (4.0-6.0) 01/15/24 12:49 Assessment & Plan Assessment & Plan (1) Medicare annual wellness visit, subsequent: Code(s): Z00.00 - Encounter for general adult medical examination without abnormal findings Plan: Keep well hydrated, eat healthy, adequate sleep and keep active (2) Type 2 diabetes mellitus with hyperglycemia: Code(s): E11.65 - Type 2 diabetes mellitus with hyperglycemia Qualifiers: Diabetes mellitus assisted insulin use: with assisted use Qualified Code(s): E11.65 - Type 2 diabetes mellitus with hyperglycemia; Z79.4 - 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 Hemoglobin A1c goal of less than 7.0 has the metformin 1000 mg twice a day Basaglar at 8 units once a day (3) Hypertension: Comment: Echo normal ejection fraction with impaired relaxation April 2020 Code(s): I10 - Essential (primary) hypertension Qualifiers: Hypertension type: primary hypertension Qualified Code(s): I10 - Essential (primary) hypertension Plan: Continue with blood pressure medication. Decrease salt intake and exercise on lisinopril 10 mg once a day (4) Hypercholesteremia: Code(s): E78.00 - Pure hypercholesterolemia, unspecified Plan: Avoid fried foods, chicken skin, eggs, butter margarine, pastries and meat. Be it pork or beef they have a lot of cholesterol LDL goal of less than 100 and triglyceride of less than 150 takes atorvastatin 40 mg once a day (5) Gastroesophageal reflux disease: Code(s): K21.9 - Gastro-esophageal reflux disease without esophagitis Qualifiers: Esophagitis presence: without esophagitis Qualified Code(s): K21.9 - Gastro-esophageal reflux disease without esophagitis Plan: Avoid the foods that causes that usually spicy foods, tomato products, juices, coffee, soda and foods that your sensitive to. After eating do not lie down, allow 3-4 hours before in lie down. And keep the head of bed above 30 degrees to avoid the acid from going up. (6) BPH with obstruction/lower urinary tract symptoms: Code(s): N40.1 - Benign prostatic hyperplasia with lower urinary tract symptoms; N13.8 - Other obstructive and reflux uropathy Plan: Patient follows up with urology and is on terazosin (7) Schizophrenia: Comment: Dr. Duffy; 20 min reviewing chart evaluating patient and documenting Code(s): F20.9 - Schizophrenia, unspecified Qualifiers: Schizophrenia type: undifferentiated schizophrenia Qualified Code(s): F20.3 - Undifferentiated schizophrenia Plan: Continue follow-up with psychiatry (8) Parkinsonism: Comment: July 2023 admission Code(s): G20.C - Parkinsonism, unspecified Qualifiers: Parkinsonism type: primary Parkinsonism Qualified Code(s): G20.C - Parkinsonism, unspecified Plan: Patient has been placed on carbidopa levodopa. (9) Tubular adenoma of colon: Comment: April [address] Rios Code(s): D12.6 - Benign neoplasm of colon, unspecified Plan: Gastroenterology referral done Orders: Orders Comprehensive Met. Panel Today E11.65 - Type 2 diabetes mellitus with hyperglycemia, Z79.4 - terminal gauger supervisor (current) use of insulin Creatinine Urine Today E11.65 - Type 2 diabetes mellitus with hyperglycemia, Z79.4 - terminal gauger supervisor (current) use of insulin Free T4 (Free Thyroxine) Today E11.65 - Type 2 diabetes mellitus with hyperglycemia, Z79.4 - terminal gauger supervisor (current) use of insulin Thyroid Stimulating Hormone Today E11.65 - Type 2 diabetes mellitus with hyperglycemia, Z79.4 - terminal gauger supervisor (current) use of insulin Vitamin B12 and Folate Today E11.65 - Type 2 diabetes mellitus with hyperglycemia, Z79.4 - [facility] (current) use of insulin Ferritin Today E11.65 - Type 2 diabetes mellitus with hyperglycemia, Z79.4 - terminal gauger supervisor (current) use of insulin Reticulocyte Count Today E11.65 - Type 2 diabetes mellitus with hyperglycemia, Z79.4 - [facility] (current) use of insulin IRON PROFILE Today E11.65 - Type 2 diabetes mellitus with hyperglycemia, Z79.4 - [facility] (current) use of insulin PT Evaluation and Treatment Today G20.C - Parkinsonism, unspecified AMB Hemoglobin A1c Today Z13.9 - Encounter for screening, unspecified Complete Blood Count Auto Diff Today E11.65 - Type 2 diabetes mellitus with hyperglycemia, Z79.4 - terminal gauger supervisor (current) use of insulin Microalbumin, Random (w Creat) Today E11.65 - Type 2 diabetes mellitus with hyperglycemia, Z79.4 - [facility] (current) use of insulin Lipid Panel Today E11.65 - Type 2 diabetes mellitus with hyperglycemia, E78.00 - Pure hypercholesterolemia, unspecified, Z79.4 - terminal gauger supervisor (current) use of insulin Referrals Gastroenterology Referral D12.6 - Benign neoplasm of colon, unspecified Quality Reporting (2019) Depression/Bipolar (159/160/161/177) PHQ-9: Total score: 7 Coding Level of Care Code Medicare Subsequent (G0439) Diagnoses Medicare annual wellness visit, subsequent Z00.00 Type 2 diabetes mellitus with hyperglycemia, with long-term current use of insulin E11.65; Z79.4 Diabetes mellitus terminal worker insulin use: with assisted use Primary hypertension I10 Hypertension type: primary hypertension Hypercholesteremia E78.00 Gastroesophageal reflux disease without esophagitis K21.9 Esophagitis presence: without esophagitis BPH with obstruction/lower urinary tract symptoms N40.1; N13.8 Schizophrenia F20.3 Schizophrenia type: undifferentiated schizophrenia Primary parkinsonism G20.C Parkinsonism type: primary Parkinsonism Tubular adenoma of colon D12.6 Additional Codes PHQ-9 - 20194 - PHQ-9 Billing: ([id number])
[2024-01-15 12:16] VITALS: BP 134/70; PULSE 77; O2SAT 98; BMI 27.5
== END 2024-01-15 13:27 | disposition home or self-care (01) ==
PROVIDERS: PCP Internal Medicine; Visit Provider Internal Medicine
DX: Z00.00 Encounter for general adult medical examination without abnormal findings (principal); E11.65 Type 2 diabetes mellitus with hyperglycemia; Z79.4 Long term (current) use of insulin; F20.3 Undifferentiated schizophrenia; G20.C Parkinsonism, unspecified; I10 Essential (primary) hypertension; E78.00 Pure hypercholesterolemia, unspecified; K21.9 Gastro-esophageal reflux disease without esophagitis; N40.1 Benign prostatic hyperplasia with lower urinary tract symptoms; N13.8 Other obstructive and reflux uropathy; D12.6 Benign neoplasm of colon, unspecified
CPT/HCPCS: 83036; G0439

== ENCOUNTER 2024-01-15 13:35 | Outpatient (REF) | payer MEDICARE, MEDICAID, SELFPAY ==
[2024-01-15 14:02] LABS: MANUAL DIFF FLAG NO
[2024-01-15 14:14] LABS: Basophils Percent Auto 0.4 % (0-2); Eosinophils Absolute Auto 0.1 X10*3/uL (0.0-0.4); Eosinophils Percent Auto 2.4 % (0-4); Hematocrit 43.5 % (42.0-52.0); Hemoglobin 14.3 g/dl (14.0-18.0); Imm Gran Abs Auto 0.02 X10*3/uL (0.00-0.03); Imm Gran Pct Auto 0.4 % (0.0-0.4); Lymphocytes Absolute Auto 1.6 X10*3/uL (1.2-4.9); Lymphocytes Percent Auto 31.9 % (20-40); Mean Corpuscular HGB Conc 32.9 g/dl (31.0-36.0); Mean Corpuscular Hemoglobin 31.2 pg (27.0-33.0); Mean Platelet Volume 8.8 fL (9.4-12.4); Monocytes Absolute Auto 0.6 X10*3/uL (0.1-1.2); Monocytes Percent Auto 12.6 % (2-11); Neutrophils Absolute Auto 2.6 x10*3/uL (2.0-8.3); Neutrophils Percent Auto 52.3 % (45-73); Platelet Count 208 X10*3/uL (160-400); Red Blood Count 4.58 X10*6/uL (4.60-5.80); Red Cell Distribution Width 13.8 % (11.0-16.0); Retic HGB Equivalent 36.6 pg (30.0-35.0); Reticulocyte Percent 1.8 % (0.5-1.8); Reticulocytes Absolute 0.082 X10*6/uL (0.026-0.095)
[2024-01-15 15:09] LABS: Alanine Aminotransferase 6 U/L (0-40); Albumin Level 4.2 g/dL (3.5-5.0); Alkaline Phosphatase 71 U/L (39-117); Anion Gap 16 (12-20); Aspartate Amino Transferase 16 U/L (5-37); Bilirubin Total 0.3 mg/dL (0.0-1.0); Blood Urea Nitrogen 15 mg/dL (9-16); Calcium 9.2 mg/dL (8.4-10.2); Carbon Dioxide 23 mmol/L (22-29); Chloride 105 mmol/L (96-108); Cholesterol 193 mg/dL (<200); Estimated Glomerular Filt Rate > 60; Glucose Random 90 mg/dL (60-115); HDL Cholesterol 33 mg/dL (>40); Iron 97 mcg/dL (45-160); LDL Cholesterol Calculated 127 mg/dL (<100); Percent Iron Saturation 34 % (15-50); Potassium 4.3 mmol/L (3.3-5.1); Sodium 140 mmol/L (135-145); Total Iron Binding Capacity 282 mcg/dL (228-428); Total Protein 6.8 g/dL (6.5-8.0); Triglycerides 168 mg/dL (<150); Unsaturated Iron Binding 185 ug/dL
[2024-01-15 15:13] LABS: Ferritin 40 ng/mL (20-250); Free T4 (Free Thyroxine) 0.97 ng/dL (0.71-1.85); Thyroid Stimulating Hormone 2.48 uIU/mL (0.32-4.0)
[2024-01-15 17:51] LABS: Folate 9.4 ng/mL (> or = 4.0); Vitamin B12 297 pg/mL (200-900)
== END 2024-01-15 13:36 | disposition home or self-care (01) ==
LOC: HO.LAB 13:35
PROVIDERS: PCP Internal Medicine; Visit Provider Internal Medicine
DX: E11.65 Type 2 diabetes mellitus with hyperglycemia (principal); E78.00 Pure hypercholesterolemia, unspecified; Z79.4 Long term (current) use of insulin
CPT/HCPCS: 36415; 80053; 80061; 82607; 82728; 82746; 83540; 84439; 84443; 85025; 85045

== ENCOUNTER 2024-01-20 13:38 | Outpatient (REF) | payer MEDICARE, MEDICAID, SELFPAY ==
[2024-01-20 14:37] LABS: Microalbum/Creatinine Ratio Ur 4.8 ug/mg cr (<30)
== END 2024-01-20 13:39 | disposition home or self-care (01) ==
LOC: HO.LNP 13:38
PROVIDERS: Visit Provider Internal Medicine
DX: E11.65 Type 2 diabetes mellitus with hyperglycemia (principal); Z79.4 Long term (current) use of insulin
CPT/HCPCS: 82043; 82570

== ENCOUNTER 2024-03-25 14:31 | Outpatient (AMB) | payer MEDICARE, MEDICAID, SELFPAY ==
--- NOTE | 2024-03-25 14:38 | A.OFFPC_ITS ---
Vital Signs 03/25/24 14:39 Height 5 ft 4 in BMI Reason not done Patient refused/unable BP 110/68 Blood Pressure Location Lt brachial Position Sitting Pulse 97 Pulse Source Pulse Oximeter Pulse Oximetry (%) 98 Oxygen Delivery Method Room Air Intake Visit Reasons: Decline in patient condition Allergies perfume Allergy (Intermediate, Verified 03/25/24 14:38) ITCHING Tobacco use date assessed: 10/09/23 Fall risk assessment: No Falls in past year Last assessed Fall Risk: 03/25/24 Dental Screening Dental Screen Date: 03/25/24 Did you have a dental visit in the last 12 months?: No Did you have a dental problem in the last 6 months where you did not have access to dental care?: No Was dental information given to patient?: Patient has dentist HPI Decline in patient condition HPI Details 74-year-old overweight male with schizop hrenia hypertension GERD hypercholesterolemia BPH controlled diabetes mellitus history of TIA peripheral vascular disease parkinsonism coming in for follow-up. Last seen in 01/17/2024. Patient's last colonoscopy has shown tubular adenoma and was advised to repeat in 3 years. Patient is up-to-date with [facility] eye care seen in 02/25/2024. Did have blood test done 03/18/2024 ratio of microalbumin creatinine normal. LDL of 145 triglyceride of 164 high. Trav is having difficulty with mobility - problem with physical therapy and was advised home PT. Have ask me to print out prescriptions to help with his gait instability. [facility] Medical History (Updated 01/15/24 @ 18:59 by Claire Bender MD) Buttock wound Nausea & vomiting Hospital discharge follow-up Confusion Urinary incontinence Weakness of both lower limbs Screening for eye condition Type 2 diabetes mellitus with hyperglycemia, without long-term current use of insulin Diabetes type 2, uncontrolled Unsteady gait Subungual hematoma of great toe Rash Bruising Annual physical exam Pedal edema Oropharyngeal dysphagia Occipital infarction Tubular adenoma of colon Type 2 diabetes mellitus with hyperglycemia Dysphagia Vitamin D deficiency Parkinson's disease Developmental delay, moderate Hypercholesteremia Gastroesophageal reflux disease Hypertension Metabolic encephalopathy Schizophrenia Depression BPH with obstruction/lower urinary tract symptoms Surgical History History of circumcision History of prostate surgery History of colonoscopy Family History Father Type II diabetes mellitus Mother Type II diabetes mellitus Social History Household Members: Other Housing: Other Housing Other:: [facility] Alcohol intake: unknown Comment: pt is sleeping resp even and unlabored. Patient Tobacco Use Status: Never used Tobacco e-Cigarette/Vaping Use: Never Used Second Hand Smoke Exposure: No Advance Directives Date on File: 07/11/21 service: No Current occupational status: disabled Current occupational exposures/hazards: No Cognitive needs: Yes Hearing needs: No Vision needs: No Questionnaire Thrive Questionnaire Date Thrive assessed: 11/21/22 AUDIT C Alcohol Use Questionnaire (AUDIT-C) 1. How often do you have a drink containing alcohol?: Never Total Score: 0 Score Reviewed/Action Taken: No NAVIN-7 AMB Questionnaire NAVIN-7 Date NAVIN - 7 assessed: 10/09/23 Source: Developed by Drs. Ran Nieves, Bertha Lao, Natanael Chen and colleagues, with an educational [place] from [employer]. Physical exam (Primary Care) Vital Signs: Last Vital Signs Pulse 97 03/25/24 14:39 BP 110/68 03/25/24 14:39 Pulse Ox 98 03/25/24 14:39 Oxygen Delivery Method Room Air 03/25/24 14:39 Tobacco/Smoking Status: Tobacco use Status Tobacco use date assessed 10/09/23 03/25/24 14:55 Patient Tobacco Use Status Never used Tobacco 03/25/24 14:55 e-Cigarette/Vaping Use Never Used 03/25/24 14:55 Thrive Assessment: Date of Thrive Assessment Date Thrive assessed 11/21/22 03/25/24 14:55 Const Other: Patient sits on the wheelchair but does move all extremities but with tremors lower extremity no swelling does has some bruises on right knee General: alert; No acute distress Eyes Conjunctivae: conjunctivae normal Resp Auscultation: clear to auscultation bilaterally Cardio Rate: regular rate Rhythm: regular rhythm GI Inspection: Yes normal to inspection Assessment and Plan Assessment & Plan (1) Schizophrenia: Comment: Dr. Duffy; 20 min reviewing chart evaluating patient and documenting Code(s): F20.9 - Schizophrenia, unspecified Qualifiers: Schizophrenia type: undifferentiated schizophrenia Qualified Code(s): F20.3 - Undifferentiated schizophrenia Plan: Continue to follow-up with psychiatry on mirtazapine Topamax Lexapro 10 mg once a day Depakote (2) Hypertension: Comment: Echo normal ejection fraction with impaired relaxation April 2020 Code(s): I10 - Essential (primary) hypertension Qualifiers: Hypertension type: primary hypertension Qualified Code(s): I10 - Essential (primary) hypertension Plan: Continue with blood pressure medication. Decrease salt intake and exercise patient on lisinopril 10 mg once a day (3) Gastroesophageal reflux disease: Code(s): K21.9 - Gastro-esophageal reflux disease without esophagitis Qualifiers: Esophagitis presence: without esophagitis Qualified Code(s): K21.9 - Gastro-esophageal reflux disease without esophagitis Plan: Avoid the foods that causes that usually spicy foods, tomato products, juices, coffee, soda and foods that your sensitive to. After eating do not lie down, allow 3-4 hours before in lie down. And keep the head of bed above 30 degrees to avoid the acid from going up. (4) Hypercholesteremia: Code(s): E78.00 - Pure hypercholesterolemia, unspecified Plan: Avoid fried foods, chicken skin, eggs, butter margarine, pastries and meat. Be it pork or beef they have a lot of cholesterol noted elevated LDL on atorvastatin 40 mg bedtime (5) BPH with obstruction/lower urinary tract symptoms: Code(s): N40.1 - Benign prostatic hyperplasia with lower urinary tract symptoms; N13.8 - Other obstructive and reflux uropathy Plan: Patient on finasteride 5 mg once a day and terazosin 10 mg at bedtime (6) Type 2 diabetes mellitus with hyperglycemia: Code(s): E11.65 - Type 2 diabetes mellitus with hyperglycemia Qualifiers: Diabetes mellitus supervisor shed workers insulin use: with supervisor shed workers use Qualified Code(s): E11.65 - Type 2 diabetes mellitus with hyperglycemia; Z79.4 - maintenance analyst (current) use of insulin Plan: Decrease the amount of carbohydrate intake, pasta, bread, rice and potatoes are all sugar and that is aside from all the sweet stuff, remember that fruits are good but they are Sweet also. Controlled on metformin a 1000 mg twice a day (7) Parkinsonism: Comment: July 2023 admission Code(s): G20.C - Parkinsonism, unspecified Qualifiers: Parkinsonism type: primary Parkinsonism Qualified Code(s): G20.C - Parkinsonism, unspecified Plan: Continue to follow-up with Neurology presently on Depakote carbidopa levodopa (8) Gait instability: Code(s): R26.81 - Unsteadiness on feet Orders: Orders Lipid Panel 3 Months E78.00 - Pure hypercholesterolemia, unspecified Comprehensive Met. Panel 3 Months E78.00 - Pure hypercholesterolemia, unspecified Hemoglobin A1c 3 Months E11.65 - Type 2 diabetes mellitus with hyperglycemia, Z79.4 - maintenance analyst (current) use of insulin Medications: New [WHEELCHAIR WITH CLIPBELT CLAMP HOOKS OR TIE DOWN] As directed 1 ea 0RF G20.C - Parkinsonism, unspecified, R26.81 - Unsteadiness on feet [ROHO CUSHION] As directed 1 ea 0RF G20.C - Parkinsonism, unspecified, R26.81 - Unsteadiness on feet [SHOWER/COMMODE CHAIR ON WHEELS] As directed 1 ea 0RF G20.C - Parkinsonism, unspecified, R26.81 - Unsteadiness on feet atorvastatin CRUSH AND GIVEN WITH SOFT FOOD 20 mg PO BEDTIME 30 tabs 12RF E78.00 - Pure hypercholesterolemia, unspecified Coding Level of Care Code Est Pt Level 4 (67615) Complex EM visit Add On G2211 Diagnoses Schizophrenia F20.3 Schizophrenia type: undifferentiated schizophrenia Primary hypertension I10 Hypertension type: primary hypertension Gastroesophageal reflux disease without esophagitis K21.9 Esophagitis presence: without esophagitis Hypercholesteremia E78.00 BPH with obstruction/lower urinary tract symptoms N40.1; N13.8 Type 2 diabetes mellitus with hyperglycemia, with long-term current use of insulin E11.65; Z79.4 Diabetes mellitus longterm insulin use: with longterm use Primary parkinsonism G20.C Parkinsonism type: primary Parkinsonism Gait instability R26.81
[2024-03-25 14:39] VITALS: BP 110/68; PULSE 97; O2SAT 98
== END 2024-03-25 15:58 | disposition home or self-care (01) ==
PROVIDERS: PCP Internal Medicine; Visit Provider Internal Medicine
DX: I10 Essential (primary) hypertension (principal); F20.3 Undifferentiated schizophrenia; E11.65 Type 2 diabetes mellitus with hyperglycemia; Z79.4 Long term (current) use of insulin; K21.9 Gastro-esophageal reflux disease without esophagitis; E78.00 Pure hypercholesterolemia, unspecified; N40.1 Benign prostatic hyperplasia with lower urinary tract symptoms; N13.8 Other obstructive and reflux uropathy; G20.C Parkinsonism, unspecified; R26.81 Unsteadiness on feet
CPT/HCPCS: 99214; G2211

== ENCOUNTER 2024-05-03 14:23 | Inpatient (IN) | payer MEDICARE, MEDICAID, SELFPAY ==
[2024-05-03] VITALS (9 sets, daily range): BP systolic 119–170; BP diastolic 75–99; PULSE 75–101; RESP 15–20; TEMP 36.4–37; O2SAT 95–100; BMI 24.0
--- NOTE | ~2024-05-03 | CT_ITS ---
EXAMINATION: CT HEAD WITHOUT CONTRAST (STROKE PROTOCOL) CLINICAL INFORMATION: Stroke protocol. Left sided weakness. COMPARISON: CT scan of the head dated 07/24/2023. TECHNIQUE: Contiguous axial imaging was performed from the skull base to vertex without intravenous administration of contrast. This CT examination was performed using dose optimization techniques as appropriate, variously including the following: *Automated exposure control *Adjustment of mA and/or kV according to patient size (this includes techniques or standardized protocols for targeted exams where dose is matched to indication/reason for exam; i.e. extremities or head) *Use of iterative reconstruction technique DLP: 759.05 mGy-cm FINDINGS: Evaluation is significantly limited due to extensive motion artifact and beam hardening artifact. In this setting, significant abnormalities may be missed or misinterpreted. There are multiple regions of peripheral hyperdensity seen in the brain bilaterally, presumably all artifactual and related to motion and beam hardening artifact. There is no convincing evidence of acute intracranial hemorrhage or territorial infarction. No abnormal mass-effect or midline shift is seen. Bazan to white matter differentiation is well preserved. No extra-axial fluid collections are identified. The ventricles and sulci are mildly enlarged. . The osseous structures and soft tissues are normal. Mucous retention cyst in the left maxillary sinus is seen. The mastoid air cells and visualized portions of the paranasal sinuses are well-aerated. CT/CT head for stroke IMPRESSION: 1. Significantly limited exam due to extensive motion artifact and beam hardening artifact. 2. No convincing evidence of acute intracranial hemorrhage or territorial infarction. However, close clinical correlation is requested. Repeat CT scan when patient is able to undergo the exam without motion is recommended. 3. Left maxillary sinus disease. This critical result was discussed with JADE Suero at 2:53 PM hours on 05/03/2024. It was ascertained that the content and urgency of the report was understood at the time of direct communication.
--- NOTE | ~2024-05-03 | CT_ITS ---
EXAMINATION: CTA NECK WITH CONTRAST (STROKE) CTA BRAIN WITH CONTRAST (STROKE) CLINICAL INFORMATION: Left-sided weakness COMPARISON: CTA head and neck on 08/09/2021 TECHNIQUE: CTA of the head and neck was performed in the axial plane from the mediastinum to the skull vertex using 70 mL Omnipaque 350 intravenous contrast. Additional reformatted multiplanar images including maximum intensity projection MIP images are generated on the CT workstation. This CT examination was performed using dose optimization techniques as appropriate, variously including the following: *Automated exposure control *Adjustment of mA and/or kV according to patient size (this includes techniques or standardized protocols for targeted exams where dose is matched to indication/reason for exam; i.e. extremities or head) *Use of iterative reconstruction technique DLP: 1545 mGy-cm FINDINGS: The degree of stenosis determined by criteria similar to NASCET. CTA NECK: Common origin of the innominate and left common carotid artery, normal variant. The innominate and bilateral subclavian arteries are patent. The origins and cervical segments of the common carotid arteries are patent bilaterally. The common carotid artery bifurcations demonstrate mural calcifications extending into the proximal segments of the cervical internal carotid arteries. No significant stenosis. The remaining segments of the cervical ICAs are patent bilaterally. The origins and cervical segments of the vertebral arteries are patent bilaterally. No hemodynamically significant stenosis, dissection, or aneurysm. The visualized branches of the external carotid arteries are patent bilaterally. CTA HEAD: Anterior circulation: The petrous, cavernous, supraclinoid segments of the internal carotid arteries are patent bilaterally. The major branches of the anterior and middle cerebral arteries as well as the anterior communicating artery complex are patent. No large vessel occlusion, saccular aneurysm, or dissection. Posterior circulation: The intracranial vertebral arteries are patent bilaterally. The basilar artery is normal in course and caliber. The posterior cerebral and superior cerebellar arteries arise normally from the basilar summit. No aneurysm. On delayed imaging, the venous structures demonstrate normal contrast opacification. No filling defect. No abnormal intraparenchymal enhancement. Soft tissues: No suspicious neck mass or cervical adenopathy. Lungs: Clear. Bones: No acute osseous abnormality. No lytic or blastic osseous lesions. Multilevel degenerative changes of the visualized spine. CT/CT angio head neck stroke IMPRESSION: CTA head demonstrates no large vessel occlusion, saccular aneurysm, or dissection. CTA neck demonstrates no hemodynamically significant stenosis, dissection, or aneurysm.
--- NOTE | ~2024-05-03 | MR_ITS ---
EXAMINATION: MR BRAIN WITHOUT CONTRAST CLINICAL INFORMATION: Left-sided weakness, dysarthria, right-sided neglect COMPARISON: CT head 05/03/2024 and MRI brain 12/02/2021 TECHNIQUE: MRI of the brain was obtained using routine sequences without contrast. FINDINGS: Significantly motion degraded, incomplete examination without axial T1-weighted no GRE sequence is obtained. Essentially nondiagnostic DWI sequence without large acute territorial acute infarct. No extra-axial fluid collection. Mild global cerebral volume loss. Patchy T2 FLAIR hyperintense foci in the subcortical and periventricular white matter, nonspecific but presumably mild chronic microangiopathy. Cavum septum pellucidum. No mass lesion, mass effect, or herniation pattern. Grossly preserved intracranial arterial and dural venous sinus flow voids. Partially empty sella. The orbits are grossly unremarkable. Dependent debris in the left maxillary sinus. No mastoid effusion. Normal marrow signal. MR/MR head/brain wo con IMPRESSION: Significantly motion degraded, incomplete examination without axial T1-weighted no GRE sequence is obtained. Essentially nondiagnostic DWI sequence without large acute territorial acute infarct.
--- NOTE | 2024-05-03 14:25 | ECG_ITS ---
Test Reason : WEAKNESS Blood Pressure : / mmHG Vent. Rate : 089 BPM Atrial Rate : 089 BPM P-R Int : 136 ms QRS Dur : 088 ms QT Int : 348 ms P-R-T Axes : 045 -29 029 degrees QTc Int : 423 ms Normal sinus rhythm Normal ECG When compared with ECG of 05-OCT-2023 16:43, No significant change was found Referred By: Terrie Munoz Electronically Signed By:RAFAELA SOUTH MD
--- NOTE | 2024-05-03 14:28 | ED.GENADULT ---
HPI - General Adult General Chief complaint: Stroke Stated complaint: STROKE ? Time Seen by Provider: 05/03/24 14:41 Source: patient and EMS Mode of arrival: EMS Limitations: altered mental status History of Present Illness ED Provider: Noni DENTON HPI narrative: This is a 74-year-old male with past medical history of intellectual disability, undifferentiated schizophrenia, dysphagia, stroke, GERD, IBS, diabetes, hyperlipidemia, hypertension, mood disorder, salivary reduction, hemorrhoids presenting to the emergency department from long-term where they noticed that patient was altered and was having some weakness and changes in speech. This started at approximately 01:30 today he is not anticoagulated. No reported falls. Patient reports a left-sided headache. According to staff members he is usually wheelchair-bound he is usually leaning forward in the wheelchair however today he was leaning back, not acting himself and had a left-sided arm arm drift. Patient poor historian and unable to provide me with full history. Limited ability to assess review of systems due to patient's intellectual disability and mental status Related Data Home Medications ?Medication ?Instructions ?Recorded ?Confirmed lancets 28 gauge (Prodigy Twist #100 ea 08/12/22 01/15/24 Top Lancet) insulin glargine 100 unit/mL (3 8 unit subcut DAILY@1530 01/09/23 01/15/24 mL) subcutaneous pen (Basaglar KwikPen U-100 Insulin) lorazepam 0.5 mg tablet 2.5 mg PO BID PRN Agitation 01/09/23 05/03/24 escitalopram oxalate 5 mg/5 mL 10 mg PO DAILY 07/24/23 05/03/24 oral solution gabapentin 100 mg capsule 100 mg PO TID 01/15/24 05/03/24 olanzapine 10 mg tablet (Zyprexa) 10 mg PO BEDTIME 01/15/24 05/03/24 atorvastatin 20 mg tablet 40 mg PO BEDTIME 05/03/24 05/03/24 doxycycline monohydrate 100 mg 100 mg PO BID 05/03/24 05/03/24 capsule finasteride 5 mg tablet 5 mg PO DAILY 05/03/24 05/03/24 gabapentin 300 mg capsule 300 mg PO BEDTIME 05/03/24 05/03/24 Previous Rx's ?Medication ?Instructions ?Recorded mirtazapine 15 mg disintegrating 15 mg PO BEDTIME 90 days #90 tabs 01/01/22 tablet THICK IT #1 ea 02/01/22 compress.stocking,knee,reg,med #2 ea 04/05/22 PRODIGY LANCET #100 ea 08/09/22 BRIEF LArge #100 ea 11/21/22 aspirin 81 mg chewable tablet 81 mg PO DAILY #90 tabs 06/27/23 (Aspirin Childrens) divalproex 125 mg capsule,delayed 500 mg (4 x 125 mg) PO BID 90 days 09/16/23 release sprinkle #720 caps metformin 1,000 mg tablet 1,000 mg PO BID #180 tabs 09/16/23 diaper,brief,adult,disposable #120 ea 10/01/23 terazosin 10 mg capsule 10 mg PO BEDTIME 90 days #90 caps 10/01/23 topiramate 50 mg tablet (Topamax) 50 mg PO BID 90 days #180 tabs 12/02/23 carbidopa 25 mg-levodopa 100 mg 1.5 tab PO QID #168 tabs 12/17/23 tablet blood sugar diagnostic (Prodigy No #100 ea 12/30/23 Coding strips) lisinopril 10 mg tablet 10 mg PO DAILY #30 tabs 04/07/24 ROHO CUSHION #1 ea 04/20/24 SHOWER/COMMODE CHAIR ON WHEELS #1 ea 04/20/24 WHEELCHAIR WITH CLIPBELT CLAMP #1 ea 04/20/24 HOOKS OR TIE DOWN Allergies Allergy/AdvReac Type Severity Reaction Status Date / Time perfume Allergy Intermediate ITCHING Verified 05/03/24 14:49 Review of Systems Review of Systems: Yes Unobtainable due to mental status PMFSH Past Medical History Attestation statement: The following information was validated with the patient. Source: old records reviewed and nursing notes reviewed Medical History Buttock wound Nausea & vomiting Hospital discharge follow-up Confusion Urinary incontinence Weakness of both lower limbs Screening for eye condition Type 2 diabetes mellitus with hyperglycemia, without long-term current use of insulin Diabetes type 2, uncontrolled Unsteady gait Subungual hematoma of great toe Rash Bruising Annual physical exam Pedal edema Oropharyngeal dysphagia Occipital infarction Tubular adenoma of colon Type 2 diabetes mellitus with hyperglycemia Dysphagia Vitamin D deficiency Parkinson's disease Developmental delay, moderate Hypercholesteremia Gastroesophageal reflux disease Hypertension Metabolic encephalopathy Schizophrenia Depression BPH with obstruction/lower urinary tract symptoms Surgical History History of circumcision History of prostate surgery History of colonoscopy Family History Family History Father Type II diabetes mellitus Mother Type II diabetes mellitus Social History Social History Household Members: Other Housing: Other Housing Other:: RESIDENTIAL Alcohol intake: unknown Comment: pt is sleeping resp even and unlabored. Patient Tobacco Use Status: Never used Tobacco Smoked in Last 30 Days: No e-Cigarette/Vaping Use: Never Used Second Hand Smoke Exposure: No Use of substances other than those prescribed or required for medical reasons: No Advance Directives: Yes Advance Directives on File: Yes Advance Directives Date on File: 07/11/21 Do you have a plan to hurt others: No Plan Nutrition Risks: On aspiration precautions service: No Current occupational status: disabled Current occupational exposures/hazards: No Cognitive needs: Yes Hearing needs: No Vision needs: No Physical Exam ED Vital Signs: Vital Signs - 24 hr 05/03/24 14:48 05/03/24 15:01 05/03/24 15:07 Temperature 97.7 F 98.2 F Pulse Rate 88 101 H Respiratory Rate 20 18 18 Blood Pressure 143/93 H 170/94 H Pulse Oximetry 100 99 Oxygen Delivery Method Room Air Room Air 05/03/24 16:05 05/03/24 17:59 05/03/24 19:14 Temperature 98.4 F 98.6 F Pulse Rate 76 75 Respiratory Rate 18 15 18 Blood Pressure 119/81 131/75 Pulse Oximetry 98 95 Oxygen Delivery Method Room Air Room Air 05/03/24 20:59 Temperature 98.0 F Pulse Rate 91 Respiratory Rate 17 Blood Pressure 147/99 H Pulse Oximetry 95 Oxygen Delivery Method Room Air BMI result Body Mass Index 24.0 vss Appearance: Patient groaning, intermittently falling instruction/commands, uncomfortable appearing Head: Normocephalic, atraumatic, no step-offs or deformities Eyes: Pupils equal, round and reactive to light.? ENT: Pharynx normal.? Neck: Normal inspection.? Neck supple.? CVS: Normal heart rate and rhythm.? Pulses normal.? Respiratory: No respiratory distress.? Breath sounds normal.? Abdomen: Soft and nontender.? Skin: Skin warm and dry.? Normal skin color.? Normal skin turgor.? Extremities: No lower extremity edema.? No calf ttp. Global weakness. Neuro: Patient groaning, intermittently following instruction/commands. Difficult to obtain neurological assessment. NIH stroke scale unable to perform due to patient mental status Course Reevaluation(s) Reevaluation #1: CBC with leukopenia and a normocytic anemia. Chemistry with no acute findings needing intervention. Normal troponin. HDL slightly low. Coags unremarkable. CT head for stroke significantly limited exam due to motion artifact and beam hardening artifact. No convincing evidence of acute intracranial hemorrhage or territorial infarction. CTA with no large vessel occlusion saccular aneurysm or dissection. CTA demonstrates no hemodynamic significant stenosis dissection or aneurysm. Time: 16:02 Reevaluation #2: Tried calling patients emergency contact for supplemental info no answer Time: 16:30 Reevaluation #3: I received sign-out on patient pending urinalysis from my colleague. Urinalysis is without evidence of infection. I spoke with long-term staff member who is present at bedside. She reports that rather than at 01:30 this morning, symptom onset was 13:30. She reports that he returned back from his day program around 13:30 is when the symptoms began. Evidently his head was leaning backwards and he appeared to have weakness to the left side of his body, his speech was significantly slurred and not understandable. This is atypical from his baseline. He was significantly weak and unable to get out of the chair even when attempted for assistance. 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 Time: 20:14 Additional Reevaluation(s): 21:00 - I consulted with Neurology, Dr. Chavis, patient does not qualify for any acute stroke treatment, planning to admit patient to medicine service for further evaluation and workup, Neurology will on patient tomorrow. Patient takes 81 mg of aspirin daily, it is unclear to me whether he received additional aspirin pre-hospital, have ordered aspirin 243 mg at this time. Patient was admitted to medicine service, spoke with hospitalist Dr. Gm Kevin Medications Administered Generic Name Dose Route Start Last Admin Trade Name Freq PRN Reason Stop Dose Admin Insulin Human Lispro 0 unit 05/03/24 23:00 05/03/24 23:00 Insulin Lispro 100 Unit/Ml 3 Ml Vial SUBCUT Not Given Q6H MIRIAN Protocol Sodium Chloride 3 ml 05/04/24 00:00 05/04/24 01:19 0.9 % Sodium Chloride Flush 3 Ml Syringe IVFLUSH 3 ml QSHIFT MIRIAN Administration Discontinued Medications Generic Name Dose Route Start Last Admin Trade Name Freq PRN Reason Stop Dose Admin Acetaminophen 975 mg 05/03/24 20:20 05/03/24 21:01 Acetaminophen 325 Mg Tablet PO 05/03/24 20:21 975 mg ONCE ONE Administration Aspirin 243 mg 05/03/24 21:09 05/03/24 21:55 Aspirin 81 Mg Tab.Chew PO 05/03/24 21:10 243 mg ONCE ONE Administration Atorvastatin Calcium 80 mg 05/03/24 22:44 05/04/24 01:16 Atorvastatin Calcium 80 Mg Tablet PO 05/03/24 22:45 80 mg ONCE STA Administration Carbidopa/Levodopa 1.5 tab 05/03/24 22:34 05/04/24 01:15 Carbidopa/Levodopa 25/100 Tablet PO 05/03/24 22:35 1.5 tab ONCE STA Administration Divalproex Sodium 500 mg 05/03/24 22:34 05/04/24 01:17 Divalproex Sodium Sprinkles 125 Mg PO 05/03/24 22:35 500 mg ONCE STA Administration Gabapentin 300 mg 05/03/24 22:34 05/04/24 01:16 Gabapentin 300 Mg Capsule PO 05/03/24 22:35 300 mg ONCE STA Administration Iohexol 100 ml 05/03/24 14:50 05/03/24 14:50 Iohexol 350 Mg/Ml 100 Ml Infus..Btl IV 05/03/24 14:51 70 ml ONCE ONE Administration Mirtazapine 15 mg 05/03/24 22:34 05/04/24 01:16 Mirtazapine 15 Mg Tablet PO 05/03/24 22:35 15 mg ONCE STA Administration Morphine Sulfate 4 mg 05/03/24 14:40 05/03/24 15:01 Morphine Sulfate 4 Mg/Ml Cartridge IVPUSH 05/03/24 14:41 4 mg ONCE ONE Administration Protocol Topiramate 50 mg 05/03/24 22:34 05/04/24 01:16 Topiramate 25 Mg Tablet PO 05/03/24 22:35 50 mg ONCE STA Administration Medical Decision Making Medical Decision Making [facility] Narrative: 1431 74-year-old male presents with altered mental status, weakness changes in behavioral which started at 01:30 long-term staff attest to this time was normal before this. Physical exam global weakness difficult to obtain neurological assessment unable to obtain NIH stroke scale. History and physical exam concerning for possible migraine versus intracranial hemorrhage versus stroke. Unlikely meningitis, encephalitis due to the sudden onset nature of events. Will rule out metabolic derangements, UTI. Plan labs, imaging, urine Differential Diagnosis Differential Diagnoses: The differential diagnosis associated with the presentation includes History and physical exam concerning for possible migraine versus intracranial hemorrhage versus stroke. Unlikely meningitis, encephalitis due to the sudden onset nature of events. Will rule out metabolic derangements, UTI. Admission/Observation Consideration of admission/observation: Escalation of care including admission/observation considered Likely Lab Data [facility] Lab Attestation statement: I reviewed the patient's lab results. 05/03/24 15:13 05/03/24 15:13 Labs: Lab Results 05/03/24 05/03/24 05/03/24 Range/Units 14:27 14:28 15:13 WBC 4.4 L (4.8-10.8) X10*3/uL RBC 4.14 L (4.60-5.80) X10*6/uL Hgb 13.2 L (14.0-18.0) g/dl Hct 39.8 L (42.0-52.0) % MCV 96.1 (80.0-98.0) fL MCH 31.9 (27.0-33.0) pg MCHC 33.2 (31.0-36.0) g/dl RDW 13.4 (11.0-16.0) % Plt Count 197 (160-400) X10*3/uL MPV 8.3 L (9.4-12.4) fL Immature Gran % (Auto) 0.7 H (0.0-0.4) % Neut % (Auto) 63.0 (45-73) % Lymph % (Auto) 21.6 (20-40) % [place] % (Auto) 12.0 H (2-11) % Eos % (Auto) 2.0 (0-4) % Baso % (Auto) 0.7 (0-2) % Lymph # (Auto) 1.0 L (1.2-4.9) X10*3/uL [place] # (Auto) 0.5 (0.1-1.2) X10*3/uL Eos # (Auto) 0.1 (0.0-0.4) X10*3/uL Baso # (Auto) 0.0 (0.0-0.2) X10*3/uL Abs Immat Gran (auto) 0.03 (0.00-0.03) X10*3/uL Absolute Neuts (auto) 2.8 (2.0-8.3) x10*3/uL Absolute Nucleated RBC 0.000 (0.0-0.012) X10*3/uL Nucleated RBC % (auto) 0.0 (0.0-0.2) /100WBC PT 13.2 (11.1-13.3) SEC Whole Blood PT 12.7 (11.1-13.5) sec INR 1.1 (0.9-1.1) Whole Blood INR 1.1 (0.9-1.1) APTT 29.3 (26.0-36.8) SEC Sodium 140 (135-145) mmol/L Potassium 4.5 (3.3-5.1) mmol/L Chloride 103 (96-108) mmol/L Carbon Dioxide 24 (22-29) mmol/L Anion Gap 18 (12-20) BUN 19 H (9-16) mg/dL Creatinine 0.72 (0.5-1.4) mg/dL Estim Creat Clear Calc 85.7 Estimated GFR > 60 POC Glucose 111 (60-115) mg/dL Random Glucose 83 (60-115) mg/dL Calcium 10.1 D (8.4-10.2) mg/dL Troponin I High Sens < 2.7 (<3.5-35.0) ng/L Triglycerides 118 (<150) mg/dL Cholesterol 104 (<200) mg/dL LDL Cholesterol, Calc 52 (<100) mg/dL HDL Cholesterol 29 L (>40) mg/dL Urine Color Urine Appearance Urine pH (5.0-9.0) Ur Specific [place] (1.005-1.025) Urine Protein (Neg-Trace) mg/dL Urine Glucose (UA) (Negative) mg/dL Urine Ketones (Negative) mg/dL Urine Blood (Negative) Urine Nitrite (Negative) Ur Leukocyte Esterase (Negative) 05/03/24 Range/Units 18:46 WBC (4.8-10.8) X10*3/uL RBC (4.60-5.80) X10*6/uL Hgb (14.0-18.0) g/dl Hct (42.0-52.0) % MCV (80.0-98.0) fL MCH (27.0-33.0) pg MCHC (31.0-36.0) g/dl RDW (11.0-16.0) % Plt Count (160-400) X10*3/uL MPV (9.4-12.4) fL Immature Gran % (Auto) (0.0-0.4) % Neut % (Auto) (45-73) % Lymph % (Auto) (20-40) % [place] % (Auto) (2-11) % Eos % (Auto) (0-4) % Baso % (Auto) (0-2) % Lymph # (Auto) (1.2-4.9) X10*3/uL [place] # (Auto) (0.1-1.2) X10*3/uL Eos # (Auto) (0.0-0.4) X10*3/uL Baso # (Auto) (0.0-0.2) X10*3/uL Abs Immat Gran (auto) (0.00-0.03) X10*3/uL Absolute Neuts (auto) (2.0-8.3) x10*3/uL Absolute Nucleated RBC (0.0-0.012) X10*3/uL Nucleated RBC % (auto) (0.0-0.2) /100WBC PT (11.1-13.3) SEC Whole Blood PT (11.1-13.5) sec INR (0.9-1.1) Whole Blood INR (0.9-1.1) APTT (26.0-36.8) SEC Sodium (135-145) mmol/L Potassium (3.3-5.1) mmol/L Chloride (96-108) mmol/L Carbon Dioxide (22-29) mmol/L Anion Gap (12-20) BUN (9-16) mg/dL Creatinine (0.5-1.4) mg/dL Estim Creat Clear Calc Estimated GFR POC Glucose (60-115) mg/dL Random Glucose (60-115) mg/dL Calcium (8.4-10.2) mg/dL Troponin I High Sens (<3.5-35.0) ng/L Triglycerides (<150) mg/dL Cholesterol (<200) mg/dL LDL Cholesterol, Calc (<100) mg/dL HDL Cholesterol (>40) mg/dL Urine Color Yellow Urine Appearance Clear Urine pH 7.0 (5.0-9.0) Ur Specific [place] 1.025 (1.005-1.025) Urine Protein Negative (Neg-Trace) mg/dL Urine Glucose (UA) Negative (Negative) mg/dL Urine Ketones 15 (Negative) mg/dL Urine Blood Negative (Negative) Urine Nitrite Negative (Negative) Ur Leukocyte Esterase Negative (Negative) Independent Interpretation I performed an independent interpretation of an: CT Scan Radiology Impression Discussion of test interpretation with radiology: I have reviewed the radiologist's reading. External Record Review External record reviewed: Inpatient record, Office record, Outpatient record, Prior outpatient labs, Prior outpatient radiology, Primary care record and Outside ED record Chronic Conditions Patient?s care impacted by: Hypertension and Other (please refer to hpi ) Discharge Plan Discharge Clinical Impression: Slurred speech, Headache Patient Disposition: Admitted As Inpatient
[2024-05-03 14:33] LABS: Glucose, Whole Blood 111 mg/dL (60-115)
[2024-05-03 14:42] LABS: Prothrombin Time Whole Bld POC 12.7 sec (11.1-13.5); ~PT, ~INR - Anti Coag Clinic 1.1 (0.9-1.1)
[2024-05-03] MEDS: iohexoL 350 MG/ML 100 ML INFUS..BTL IV (14:50)
[2024-05-03] MEDS: Morphine Sulfate 4 MG/ML CARTRIDGE IVPUSH (15:01)
[2024-05-03 15:17] LABS: MANUAL DIFF FLAG NO
[2024-05-03 15:19] LABS: Basophils Percent Auto 0.7 % (0-2); Eosinophils Absolute Auto 0.1 X10*3/uL (0.0-0.4); Hematocrit 39.8 % (42.0-52.0); Hemoglobin 13.2 g/dl (14.0-18.0); Imm Gran Abs Auto 0.03 X10*3/uL (0.00-0.03); Imm Gran Pct Auto 0.7 % (0.0-0.4); Lymphocytes Percent Auto 21.6 % (20-40); Mean Corpuscular HGB Conc 33.2 g/dl (31.0-36.0); Mean Corpuscular Hemoglobin 31.9 pg (27.0-33.0); Mean Corpuscular Volume 96.1 fL (80.0-98.0); Mean Platelet Volume 8.3 fL (9.4-12.4); Monocytes Absolute Auto 0.5 X10*3/uL (0.1-1.2); Neutrophils Absolute Auto 2.8 x10*3/uL (2.0-8.3); Platelet Count 197 X10*3/uL (160-400); Red Blood Count 4.14 X10*6/uL (4.60-5.80); Red Cell Distribution Width 13.4 % (11.0-16.0); White Blood Count 4.4 X10*3/uL (4.8-10.8)
[2024-05-03 15:24] LABS: INTERNATIONAL NORM RATIO 1.1 (0.9-1.1); Prothrombin Time 13.2 SEC (11.1-13.3)
[2024-05-03 15:26] LABS: Partial Thromboplastin Time 29.3 SEC (26.0-36.8)
[2024-05-03 15:27] LABS: Stroke Lab Use COMPLETE
[2024-05-03 15:33] LABS: Anion Gap 18 (12-20); Blood Urea Nitrogen 19 mg/dL (9-16); Calcium 10.1 mg/dL (8.4-10.2); Carbon Dioxide 24 mmol/L (22-29); Chloride 103 mmol/L (96-108); Cholesterol 104 mg/dL (<200); Creatinine Clr Calc Pharmacy 85.7; Estimated Glomerular Filt Rate > 60; Glucose Random 83 mg/dL (60-115); HDL Cholesterol 29 mg/dL (>40); LDL Cholesterol Calculated 52 mg/dL (<100); Potassium 4.5 mmol/L (3.3-5.1); Sodium 140 mmol/L (135-145); Triglycerides 118 mg/dL (<150)
[2024-05-03 15:42] LABS: Troponin-I High Sensitivity < 2.7 ng/L (<3.5-35.0)
[2024-05-03 18:55] LABS: Appearance Urine Clear; Color Urine Yellow; Glucose Urine UA Negative (Negative); Leukocyte Esterase Urine Negative (Negative); Nitrite Urine Negative (Negative); Specific Gravity - Urine 1.025 (1.005-1.025); Urine Blood Negative (Negative); Urine Ketones 15 mg/dL (Negative); Urine Protein Negative (Neg-Trace)
[2024-05-03] MEDS: Acetaminophen 325 MG TABLET 975 MG PO (21:01)
[2024-05-03] MEDS: Aspirin 81 MG TAB.CHEW 243 MG PO (21:55)
--- NOTE | 2024-05-03 22:48 | P.HPHOSP_ITS ---
History of Present Illness Date of Service: 05/03/24 Attending physician on admission: Joaquin Kevin Chief Complaint: Speech difficulty Ezekiel Huston is a 74 years old man with past medical history significant for mental disability, schizophrenia, stroke, type 2 diabetes mellitus on metformin, Parkinson's disease, essential hypertension and hyperlipidemia was brought to the emergency department via EMS after he was noted to have speech difficulty and left-sided weakness. These were noted at 1:30 PM. The patient also complained of left-sided headache. No other symptoms reported such as nausea, vomiting, diarrhea, fever or chills. HPI was mostly provided by custodial staff (at bedside and another member was on the phone). No seizure activity was observed. In the ED, he was found to have stable vital signs. Blood workup including CBC, CMP and troponin are unremarkable. INR is normal. Urinalysis normal. Head CT scan without contrast showed no convincing evidence of acute intracranial hemorrhage or infarction, however, the study is limited due to extensive motion artifact and beam hardening artifact. Head and neck CTA showed no large vessel occlusion, saccular aneurysm or dissection. ED tx: Morphine 4 mg IV, acetaminophen 975 mg PO, aspirin 243 mg PO. tPA not given. Review of Systems 2 Review of Systems: Yes Unobtainable due to mental condition [facility] Medical History Buttock wound Nausea & vomiting Hospital discharge follow-up Confusion Urinary incontinence Weakness of both lower limbs Screening for eye condition Type 2 diabetes mellitus with hyperglycemia, without long-term current use of insulin Diabetes type 2, uncontrolled Unsteady gait Subungual hematoma of great toe Rash Bruising Annual physical exam Pedal edema Oropharyngeal dysphagia Occipital infarction Tubular adenoma of colon Type 2 diabetes mellitus with hyperglycemia Dysphagia Vitamin D deficiency Parkinson's disease Developmental delay, moderate Hypercholesteremia Gastroesophageal reflux disease Hypertension Metabolic encephalopathy Schizophrenia Depression BPH with obstruction/lower urinary tract symptoms Family History Father Type II diabetes mellitus Mother Type II diabetes mellitus Surgical History History of circumcision History of prostate surgery History of colonoscopy Social History Household Members: Other Housing: Other Housing Other:: [place] Alcohol intake: unknown Comment: pt is sleeping resp even and unlabored. Patient Tobacco Use Status: Never used Tobacco Smoked in Last 30 Days: No e-Cigarette/Vaping Use: Never Used Second Hand Smoke Exposure: No Use of substances other than those prescribed or required for medical reasons: No Advance Directives: Yes Advance Directives on File: Yes Advance Directives Date on File: 07/11/21 Do you have a plan to hurt others: No Plan service: No Current occupational status: disabled Current occupational exposures/hazards: No Cognitive needs: Yes Hearing needs: No Vision needs: No Meds Allergies Allergy/AdvReac Type Severity Reaction Status Date / Time perfume Allergy Intermediate ITCHING Verified 05/03/24 14:49 Active Medications: Current Medications Acetaminophen (Acetaminophen 325 Mg Tablet) 975 mg PO Q6H PRN PRN Reason: Pain, Mild (Pain Scale 1-3), fever or headache Aspirin (Aspirin 81 Mg Tab.Chew) 81 mg PO DAILY REPLACED BY [facility] Atorvastatin Calcium (Atorvastatin Calcium 80 Mg Tablet) 80 mg PO ONCE STA Stop: 05/03/24 22:45 Calcium Carbonate (Calcium Carbonate 750 Mg Tab.Chew) 750 mg PO Q4H PRN PRN Reason: Heartburn Heparin Sodium (Porcine) (Heparin Sodium,Porcine 5,000 Unit/Ml Vial) 5,000 unit SUBCUT Q8H REPLACED BY [facility] Sodium Chloride (0.9 % Sodium Chloride Flush 3 Ml Syringe) 3 ml IVFLUSH QSHIFT REPLACED BY [facility] Home Medications ?Medication ?Instructions ?Recorded ?Confirmed ?Last Taken ?Type lancets 28 gauge (Prodigy Twist #100 ea 08/12/22 01/15/24 Unknown History Top Lancet) insulin glargine 100 unit/mL (3 8 unit subcut DAILY@1530 01/09/23 01/15/24 Unknown History mL) subcutaneous pen (Basaglar KwikPen U-100 Insulin) lorazepam 0.5 mg tablet 0.5 mg PO BID PRN Agitation 01/09/23 01/15/24 Unknown History escitalopram oxalate 5 mg/5 mL 10 mg PO DAILY 07/24/23 01/15/24 Unknown History oral solution gabapentin 100 mg capsule 100 mg PO TID 01/15/24 01/15/24 Unknown History olanzapine 10 mg tablet (Zyprexa) 10 mg PO BEDTIME 01/15/24 01/15/24 Unknown History atorvastatin 20 mg tablet 40 mg PO BEDTIME 05/03/24 05/03/24 Unknown History doxycycline monohydrate 100 mg 100 mg PO BID 05/03/24 05/03/24 Unknown History capsule finasteride 5 mg tablet 5 mg PO DAILY 05/03/24 05/03/24 Unknown History gabapentin 300 mg capsule 300 mg PO BEDTIME 05/03/24 05/03/24 Unknown History Physical Exam 2 Vital Signs and Narrative: Vital Signs: Last Vital Signs Temp 98.0 F 05/03/24 20:59 Pulse 91 05/03/24 20:59 Resp 17 05/03/24 20:59 BP 147/99 H 05/03/24 20:59 Pulse Ox 95 05/03/24 20:59 O2 Del Method Room Air 05/03/24 20:59 BMI result Body Mass Index 24.0 Constitutional - Awake and Alert, No apparent distress. Follows simple commands. Answers simple questions appropriately. HEENT - PERRL, EOMI. Heart- RRR, No murmur. Lungs - Normal lung expansion, Normal respiratory effort, No respiratory distress, CTA bilaterally Abdomen - NT / ND; +BS; No rebound or guarding Extremities - no calf tenderness bilaterally, no swelling Skin - Warm/Dry Neurological - Alert & oriented only to person, facial droop, dysarthria, left- sided weakness, right side neglect. Left plantar reflex absent. Psychological - Anxious affect Results Labs 05/03/24 15:13 05/03/24 15:13 Labs: Laboratory Results - last 24 hr 05/03/24 05/03/24 05/03/24 14:27 14:28 15:13 MCV 96.1 MCH 31.9 MCHC 33.2 RDW 13.4 Plt Count 197 MPV 8.3 L Immature Gran % (Auto) 0.7 H Neut % (Auto) 63.0 Lymph % (Auto) 21.6 [place] % (Auto) 12.0 H Eos % (Auto) 2.0 Baso % (Auto) 0.7 Lymph # (Auto) 1.0 L [place] # (Auto) 0.5 Eos # (Auto) 0.1 Baso # (Auto) 0.0 Abs Immat Gran (auto) 0.03 Absolute Neuts (auto) 2.8 Absolute Nucleated RBC 0.000 Nucleated RBC % (auto) 0.0 PT 13.2 Whole Blood PT 12.7 INR 1.1 Whole Blood INR 1.1 APTT 29.3 Anion Gap 18 Estim Creat Clear Calc 85.7 Estimated GFR > 60 POC Glucose 111 Random Glucose 83 Calcium 10.1 D Troponin I High Sens < 2.7 Triglycerides 118 Cholesterol 104 LDL Cholesterol, Calc 52 HDL Cholesterol 29 L Urine Color Urine Appearance Urine pH Ur Specific Omer Urine Protein Urine Glucose (UA) Urine Ketones Urine Blood Urine Nitrite Ur Leukocyte Esterase 05/03/24 18:46 MCV MCH MCHC RDW Plt Count MPV Immature Gran % (Auto) Neut % (Auto) Lymph % (Auto) [place] % (Auto) Eos % (Auto) Baso % (Auto) Lymph # (Auto) [place] # (Auto) Eos # (Auto) Baso # (Auto) Abs Immat Gran (auto) Absolute Neuts (auto) Absolute Nucleated RBC Nucleated RBC % (auto) PT Whole Blood PT INR Whole Blood INR APTT Anion Gap Estim Creat Clear Calc Estimated GFR POC Glucose Random Glucose Calcium Troponin I High Sens Triglycerides Cholesterol LDL Cholesterol, Calc HDL Cholesterol Urine Color Yellow Urine Appearance Clear Urine pH 7.0 Ur Specific Omer 1.025 Urine Protein Negative Urine Glucose (UA) Negative Urine Ketones 15 Urine Blood Negative Urine Nitrite Negative Ur Leukocyte Esterase Negative Imaging Radiologist's Impressions: Impressions Head CT 05/03/24 14:38 IMPRESSION: 1. Significantly limited exam due to extensive motion artifact and beam hardening artifact. 2. No convincing evidence of acute intracranial hemorrhage or territorial infarction. However, close clinical correlation is requested. Repeat CT scan when patient is able to undergo the exam without motion is recommended. 3. Left maxillary sinus disease. This critical result was discussed with JADE Suero at 2:53 PM hours on 05/03/2024. It was ascertained that the content and urgency of the report was understood at the time of direct communication. Head/Neck CTA 05/03/24 14:51 IMPRESSION: CTA head demonstrates no large vessel occlusion, saccular aneurysm, or dissection. CTA neck demonstrates no hemodynamically significant stenosis, dissection, or aneurysm. Assessment and Plan (1) Slurred speech: Status: Acute (2) Left-sided weakness: Status: Acute Plan Ezekiel Huston is a 74 y/o man admitted with: * Left-sided weakness, dysarthria, facial droop + right-sided neglect. Suspecting acute stroke. Admit to hospitalist service. Telemetry. NPO. Aspiration and fall precautions. Neuro checks every 2 hours. Check brain MRI and echocardiogram with bubble study. Continue treatment with aspirin and atorvastatin (increased from 40 mg PO to 80 mg PO at bedtime). Neurology consult. OT, PT swallow/speech evaluation and treatment. * Type 2 diabetes mellitus. Metformin on hold (recent administration of IV contrast). BG checks every 6 hours while NPO. Insulin sliding scale. Check hemoglobin A1c. * Essential hypertension. Continue lisinopril. * Hyperlipidemia. Continue statin. * Parkinson's disease. Continue carbidopa-levodopa. * BPH. Continue terazosin and finasteride. * Mood disorder. Continue mirtazapine, Depakote, gabapentin, citalopram. Zyprexa and Topamax. DVT prophylaxis: Heparin Code status: Full. Patient will need hospitalization for at least 2 midnights for suspected stroke management and treatment. Patient will need close monitoring of vital signs and neurological status as well as neurology evaluation. Quality Stroke Does the patient have a stroke diagnosis?: Yes Reason for No Anti-thrombotic by Day Two: Not indicated (Unclear) VTE Prior VTE?: No VTE Risk Level:: Medical - moderate - high VTE Device Contraindication: Treatment Not Indicated VTE Drug Contraindication: N/A - Med Ordered
--- NOTE | 2024-05-03 23:01 | PHA.MEDREC ---
Addendum entered by Daria Hutson, [facility] 05/04/24 20:22: [facility] reviewed Basaglar 4 units daily. Addendum entered by Ro Cheney 05/04/24 18:15: Following up from morning shift. Angela Rush called back and confirmed Basaglar is 4 units daily , last fill dates was 04-28-24 and was delivered to patient. Updated med rec and will notify the MD. Addendum entered by Zuleyma Echols, [facility] 05/04/24 15:16: End of shift, have not heard back from [facility]. Called [facility] where patient picks up Basaglar, pharmacy has no way to speak to pharmacy directly, had to leave a voicemail. Passed off to evening [facility] Addendum entered by Zuleyma Echols, [facility] 05/04/24 09:04: Called [facility], was transferred to the line of Johnna Velazquez who helps with patients care. Left voice mail. waiting for call back. Addendum entered by Pantera Yu, [facility] 05/03/24 23:06: Med rec double checked by [facility]. Only thing not confirmed is patient insulin dose. Pharmacy will follow up in am to check with facility Original Note: Pharmacy Consult ? Medication Reconciliation Pharmacy has completed the medication reconciliation. Utilized list from [facility] that nurse sent me. Basaglar kwikPen 8 units daily is on claim, however not on med list from [facility]. Will have to follow up tomorrow to confirm med.
[2024-05-03 23:51] LABS: Glucose, Whole Blood 116 mg/dL (60-115)
[2024-05-04] VITALS (7 sets, daily range): BP systolic 123–167; BP diastolic 73–90; PULSE 63–85; RESP 15–20; TEMP 36.4–37.1; O2SAT 96–98; BMI 22.5
--- NOTE | 2024-05-04 00:48 | PC.NURSE ---
Dr. Worrell informed that patient passed nursing swallow evaluation and has been taking crushed pills in apple sauce or pudding w/o issues. Per Dr. Worrell, patient may continue taking crushed medications in apple sauce/pudding.
[2024-05-04] MEDS: Carbidopa/Levodopa 25/100 TABLET 1.5 TAB PO ×4 (01:15→21:28)
[2024-05-04] MEDS: Gabapentin 300 MG CAPSULE PO ×2 (01:16→21:26)
[2024-05-04] MEDS: Atorvastatin Calcium 80 MG TABLET PO (01:16)
[2024-05-04] MEDS: Topiramate 25 MG TABLET 50 MG PO ×2 (01:16→21:27)
[2024-05-04] MEDS: Mirtazapine 15 MG TABLET PO (01:16)
[2024-05-04] MEDS: Divalproex Sodium Sprinkles 125 MG CAP.DR.SPR 500 MG PO ×2 (01:17→21:29)
[2024-05-04] MEDS: 0.9 % Sodium Chloride Flush 3 ML SYRINGE IVFLUSH ×3 (01:19→16:18)
--- NOTE | 2024-05-04 02:50 | PC.NURSE ---
Patient is alert and oriented x2-to self and and familiar person. VSS, no signs of distress. Pt denies pain at this time. He requested to use a urinal, voided 500 mL of yellow, clear urine. [facility] staff at bedside. Plan of care ongoing.
[2024-05-04 05:14] LABS: Glucose, Whole Blood 82 mg/dL (60-115)
[2024-05-04 05:28] LABS: MANUAL DIFF FLAG NO
[2024-05-04 05:30] LABS: Basophils Percent Auto 0.7 % (0-2); Eosinophils Absolute Auto 0.2 X10*3/uL (0.0-0.4); Eosinophils Percent Auto 4.1 % (0-4); Imm Gran Abs Auto 0.02 X10*3/uL (0.00-0.03); Imm Gran Pct Auto 0.5 % (0.0-0.4); Lymphocytes Absolute Auto 1.2 X10*3/uL (1.2-4.9); Lymphocytes Percent Auto 29.9 % (20-40); Mean Corpuscular HGB Conc 33.3 g/dl (31.0-36.0); Mean Corpuscular Hemoglobin 31.6 pg (27.0-33.0); Mean Corpuscular Volume 94.7 fL (80.0-98.0); Mean Platelet Volume 8.7 fL (9.4-12.4); Monocytes Absolute Auto 0.6 X10*3/uL (0.1-1.2); Monocytes Percent Auto 13.9 % (2-11); Neutrophils Absolute Auto 2.1 x10*3/uL (2.0-8.3); Neutrophils Percent Auto 50.9 % (45-73); Platelet Count 201 X10*3/uL (160-400); Red Blood Count 4.12 X10*6/uL (4.60-5.80); Red Cell Distribution Width 13.4 % (11.0-16.0); White Blood Count 4.1 X10*3/uL (4.8-10.8)
--- NOTE | 2024-05-04 05:36 | PC.NURSE ---
Patient woke up reporting difficulty breathing to a [facility] staff at bedside. RR 16, P 76, BP 119/69, O2 Sat 97-98% RA. Patient denies chest pain, lungs are clear, diminished in bases. Patient is able to speak in full sentences with no rep distress noted, speech is mostly incomprehensible. POC 82. Patient denies difficulty breathing to this RN. Dr. Worrell updated.
[2024-05-04 05:47] LABS: Anion Gap 15 (12-20); Blood Urea Nitrogen 19 mg/dL (9-16); Calcium 9.2 mg/dL (8.4-10.2); Carbon Dioxide 26 mmol/L (22-29); Chloride 103 mmol/L (96-108); Cholesterol 103 mg/dL (<200); Creatinine Clr Calc Pharmacy 83.4; Estimated Average Glucose 105 mg/dL; Estimated Glomerular Filt Rate > 60; Glucose Random 79 mg/dL (60-115); HDL Cholesterol 26 mg/dL (>40); Hemoglobin A1c % 5.3 % (<6.0); LDL Cholesterol Calculated 55 mg/dL (<100); Potassium 3.8 mmol/L (3.3-5.1); Sodium 140 mmol/L (135-145); Triglycerides 111 mg/dL (<150)
--- NOTE | 2024-05-04 07:00 | CA_ITS ---
Transthoracic Echocardiogram Patient (Last, First, Middle): Ezekiel Slade H Gender: Male Date of : 1950 Age: 74 Procedure Date: 05/04/2024 Procedure Type: Transthoracic Echocardiogram Location: ER Height: 172.72 cm Weight: 71.67 kg BSA: 1.85 m2 Heart Rate: 62 bpm BP: 151 / 93 mmHg Car Changer: LUPE Limon MD: Yi Pennington MD Senior System Operator: Pola Cantu MD Symptoms: Suspected stroke Study Quality: Fair ECG Rhythm: Sinus Conclusions: - 1. Low normal LV ejection fraction 50-55% with mild LVH with impaired relaxation filling pattern 2. Trivial aortic regurgitation with mild calcific aortic valve and mitral valve changes noted 3. Normal measured RV systolic pressure Findings Left Ventricle Normal left ventricular cavity size. There is mildly increased left ventricular wall thickness. The left ventricular systolic function is low normal. The visually estimated ejection fraction is between 50-55%. Spectral Doppler is indicative of an impaired relaxation filling pattern. Right Ventricle The right ventricle was not well visualized. Atria The left atrium is normal in size. There is no evidence of interatrial shunt. The right atrium was not well visualized. Aortic Valve There is mild calcification of the aortic valve. There is mild thickening of the aortic valve. There is no aortic valve stenosis. There is trace (trivial) aortic valve regurgitation. Mitral Valve There is mild anterior and posterior mitral leaflet thickening. There is mild anterior mitral annular calcification. There is trace mitral valve regurgitation. There is no mitral valve stenosis. Tricuspid Valve The tricuspid valve was not well visualized. There is trace tricuspid valve regurgitation. The right ventricular systolic pressure is normal. There is no evidence of pulmonary hypertension. Great Vessels The aorta was not well visualized. Venous The inferior vena cava is normal in size. Pericardium/Pleural The pericardium was not well visualized. Measurements 2D Linear Measurements IVSd: 1.21 0.6-0.9/0.6-1.0 cm LVIDd: 3.89 3.9-5.3/4.2-5.9 cm LVIDd Index: 2.10 2.4-3.2/2.2-3.1 cm/m2 LVIDs: 2.55 2.0-3.6 cm LVPWd: 1.09 0.7-1.1 cm LA Diam: 2.60 2.7-3.8/3.0-4.0 cm LAIDs Index: 1.41 1.5-2.3 cm/m2 LV Mass: 185.45 67-162/88-224 g LV Mass Index: 100.24 43-95/49-115 g/m2 LVOT Diam: 2.20 3.0+(-)1.3 cm 2D Systolic Function EF 4C: 46.50 >55% EF 2C: 60.90 >55% EF BiP: 54.50 >55% Mitral Valve MV Pk E: 0.53 MV PK A: 0.74 MV Decel Time: 342.00 E/A: 0.70 E'Lateral: 5.43 E'Medial: 4.56 E/E' Med: 11.60 E/E' Lat: 9.80 PHT: 100.00 MVA PHT: 2.20 Decel [place]: 1.56 Aortic Valve AoV Pk Joseph: 1.01 AoV Mn Joseph: 0.69 AoV VTI: 0.23 AoV Pk Grad: 4.00 Aov Mn Grad: 2.00 TIFFANIE Cont.VTI: 2.70 LVOT LVOT Pk Joseph: 0.66 LVOT Mn Joseph: 0.49 LVOT VTI: 0.16 LVOT Pk Grad: 2.00 LVOT Mn Grad: 1.00 LVOT Diam: 2.20 LVOT Area: 3.80 Diastolic Function MV Pk E: 0.53 MV Pk A: 0.74 E/A: 0.70 E'Medial: 4.56 E/E' Med: 11.60 E' Laterial: 5.43 E/E' Lat: 9.80 Right Ventricle TAPSE (mm): 15.00 TVS' Joseph: 8.67 Tricuspid Valve TR Pk Joseph: 1.28 TR Pk Grad: 7.00 RA Press: 3.00 RVSP: 10.00 Great Vessels Aorta Sinus of Valsalva: 3.50 2.0-3.5 cm Ao Asc: 3.30 2.1-3.4 cm Pulmonary Valve PV Pk Joseph: 0.73 Peak PV Grad: 2.00 Updated in Other Vendor System with Status of Final Pola Cantu MD electronically signed on 05/04/2024 12:17:21 PM with status of Final
--- NOTE | 2024-05-04 08:10 | PC.NURSE ---
This RN Spoke with Arminda Andrea at the snf who was able to hlep complete MRI Screening form. Arminda
--- NOTE | 2024-05-04 09:18 | P.CNNE_ITS ---
History of Present Illness Data of Consult Service Date: 05/04/24 Primary Care Provider: Claire Bender MD HPI Reason for consult: left sided weakness This is a 74 years old man with past medical history significant for mental disability, schizophrenia, stroke, type 2 diabetes mellitus on metformin, Parkinson's disease, essential hypertension and hyperlipidemia was brought to the emergency department via EMS after he was noted to have speech difficulty and left-sided weakness. These were noted at 1:30 PM. The patient also complained of left-sided headache. No other symptoms reported such as nausea, vomiting, diarrhea, fever or chills. HPI was mostly provided by [facility] staff (at bedside and another member was on the phone). No seizure activity was observed. He has limited ability to give information. In the ED, he had stable vital signs. Blood workup including CBC, CMP and troponin are unremarkable. INR is normal. Urinalysis normal. Head CT scan without contrast showed no convincing evidence of acute intracranial hemorrhage or infarction. Head and neck CTA showed no large vessel occlusion, saccular aneurysm or dissection. He had a vist here in November 2021 with transient left facial weakness and was seen by Dr. Chavis with presumptive Dx of TIA. MRI was negative at the time. On examination he is alert. Does not verbalize. He follows one-step commands. He has a prominent resting tremor of his right upper extremity at the wrist and hand from his Parkinson's disease. This a degree of tremor on the left side. Strength in the left side appears diminished in a with a downward drift of the left upper extremity. He can molded goods spot picker his right leg against gravity but does not molded goods spot picker the left leg which appears to have decreased tone. Reflexes hypoactive throughout. Plantar response are neutral. Impression: possible new right hemisphere ischemic infarct with left hemiparesis. Baseline dementia. Parkinsonian tremor. Recommendation: MRI of the brain to rule out acute infarct. CTA of the head and neck does not show any occlusive disease. Continue aspirin 81 mg a day. If MRI confirms an acute stroke would add Plavix for about 3 months. Continue his parkinsonian medications. [facility], LATER [facility] Past Medical History Medical History Buttock wound Nausea & vomiting Hospital discharge follow-up Confusion Urinary incontinence Weakness of both lower limbs Screening for eye condition Type 2 diabetes mellitus with hyperglycemia, without long-term current use of insulin Diabetes type 2, uncontrolled Unsteady gait Subungual hematoma of great toe Rash Bruising Annual physical exam Pedal edema Oropharyngeal dysphagia Occipital infarction Tubular adenoma of colon Type 2 diabetes mellitus with hyperglycemia Dysphagia Vitamin D deficiency Parkinson's disease Developmental delay, moderate Hypercholesteremia Gastroesophageal reflux disease Hypertension Metabolic encephalopathy Schizophrenia Depression BPH with obstruction/lower urinary tract symptoms Family History Family History Father Type II diabetes mellitus Mother Type II diabetes mellitus Surgical History Surgical History History of circumcision History of prostate surgery History of colonoscopy Social History Social History Household Members: Other Housing: Other Housing Other:: [facility] Alcohol intake: unknown Comment: pt is sleeping resp even and unlabored. Patient Tobacco Use Status: Never used Tobacco Smoked in Last 30 Days: No e-Cigarette/Vaping Use: Never Used Second Hand Smoke Exposure: No Use of substances other than those prescribed or required for medical reasons: No Advance Directives: Yes Advance Directives on File: Yes Advance Directives Date on File: 07/11/21 Do you have a plan to hurt others: No Plan Nutrition Risks: On aspiration precautions service: No Current occupational status: disabled Current occupational exposures/hazards: No Cognitive needs: Yes Hearing needs: No Vision needs: No Meds Allergies Allergy/AdvReac Type Severity Reaction Status Date / Time perfume Allergy Intermediate ITCHING Verified 05/03/24 14:49 Active Medications: Current Medications Acetaminophen (Acetaminophen 325 Mg Tablet) 975 mg PO Q6H PRN PRN Reason: Pain, Mild (Pain Scale 1-3), fever or headache Aspirin (Aspirin 81 Mg Tab.Chew) 81 mg PO DAILY [facility] Calcium Carbonate (Calcium Carbonate 750 Mg Tab.Chew) 750 mg PO Q4H PRN PRN Reason: Heartburn Glucose (Glucose Gel 15 Gm Gel..Gram.) 15 gm PO Q15M PRN; Protocol PRN Reason: per Hypoglycemia Standing Ord. Heparin Sodium (Porcine) (Heparin Sodium,Porcine 5,000 Unit/Ml Vial) 5,000 unit SUBCUT Q8H [facility] Dextrose (D10) 250 mls @ 750 mls/hr IV Q15M PRN; Protocol PRN Reason: per Hypoglycemia Standing Ord. Insulin Human Lispro (Insulin Lispro 100 Unit/Ml 3 Ml Vial) 0 unit SUBCUT Q6H [facility]; Protocol Last Admin: 05/04/24 05:19 Dose: Not Given Sodium Chloride (0.9 % Sodium Chloride Flush 3 Ml Syringe) 3 ml IVFLUSH QSHIFT [facility] Last Admin: 05/04/24 01:19 Dose: 3 ml Home Medications ?Medication ?Instructions ?Recorded ?Confirmed ?Last Taken ?Type lancets 28 gauge (Prodigy Twist #100 ea 08/12/22 01/15/24 Unknown History Top Lancet) insulin glargine 100 unit/mL (3 8 unit subcut DAILY@1530 01/09/23 01/15/24 Unknown History mL) subcutaneous pen (Basaglar KwikPen U-100 Insulin) lorazepam 0.5 mg tablet 2.5 mg PO BID PRN Agitation 01/09/23 05/03/24 Unknown History escitalopram oxalate 5 mg/5 mL 10 mg PO DAILY 07/24/23 05/03/24 Unknown History oral solution gabapentin 100 mg capsule 100 mg PO TID 01/15/24 05/03/24 Unknown History olanzapine 10 mg tablet (Zyprexa) 10 mg PO BEDTIME 01/15/24 05/03/24 Unknown History atorvastatin 20 mg tablet 40 mg PO BEDTIME 05/03/24 05/03/24 Unknown History finasteride 5 mg tablet 5 mg PO DAILY 05/03/24 05/03/24 Unknown History gabapentin 300 mg capsule 300 mg PO BEDTIME 05/03/24 05/03/24 Unknown History Physical Exam 2 Vital Signs: Vital Signs: Last Vital Signs Temp 97.9 F 05/04/24 04:00 Pulse 84 05/04/24 04:00 Resp 16 05/04/24 04:00 BP 123/73 05/04/24 04:00 Pulse Ox 96 05/04/24 04:00 O2 Del Method Room Air 05/04/24 04:00 BMI result Body Mass Index 24.0 Results Labs 05/04/24 04:53 05/04/24 04:53 Labs: Short CBC 05/03/24 05/04/24 Range/Units 15:13 04:53 WBC 4.4 L 4.1 L (4.8-10.8) X10*3/uL Hgb 13.2 L 13.0 L (14.0-18.0) g/dl Hct 39.8 L 39.0 L (42.0-52.0) % Plt Count 197 201 (160-400) X10*3/uL BMP 05/03/24 05/04/24 15:13 04:53 Sodium 140 140 Potassium 4.5 3.8 Chloride 103 103 Carbon Dioxide 24 26 BUN 19 H 19 H Creatinine 0.72 0.74 Calcium 10.1 D 9.2 D Urine 05/03/24 Range/Units 18:46 Urine Color Yellow Urine Appearance Clear Urine pH 7.0 (5.0-9.0) Ur Specific [place] 1.025 (1.005-1.025) Urine Protein Negative (Neg-Trace) mg/dL Urine Glucose (UA) Negative (Negative) mg/dL Procedures Date of Service Date of Service: 05/04/24
[2024-05-04] MEDS: Aspirin 81 MG TAB.CHEW PO (10:18)
[2024-05-04] MEDS: Heparin Sodium,Porcine 5,000 UNIT/ML VIAL 5000 UNIT SUBCUT ×2 (10:18→18:29)
--- NOTE | 2024-05-04 10:49 | MHC.CM.PN ---
Addendum entered by Smiley Khanna 05/04/24 14:55: Spoke with Arminda, [facility] nurse. Pt. uses a walker and W/C, most recently W/C. DCP is for him to return to [facility], they can care for him, unless he has IV medication, they are not able to do that. They will need information from PT, ST, diet, and request report from MRI. She informed me that pt. has an appt. for outpt. PT here on 05/11/24. DCP: return to [facility], CM to follow and assist with DC plan. Paperwork to be faxed here from [facility] that will be needed for DC. PCP confirmed: Dr. Bender. Original Note: IMM 05/04/24, sent to guardian, Amrit Lazo. Pt. lives in a [facility], CM left message with nurse, Arminda, the nurse for [facility]. Awaiting return call to arrange for DCP.
--- NOTE | 2024-05-04 10:56 | MHC.SL.SWA ---
Speech Pathologist Impression: Risk of Aspiration Due to: Dysphasia Diet Status: Liquid Consistency and Strategies for Safe Swallow: Liquid Intake Recommendation: [place] Thick Liquid Intake Strategies: No straws Solid Food Consistency: Dietary Recommendations: Grnd/Mech Altered (NDD2) Oral Medication Intake: Whole with Liquid Please contact the pharmacy regarding appropriate crushable or liquid drug formulations that are available whenever modified delivery is recommended. Compensatory Strategies and Precautions to be Taken for Safe Swallow: Sitting Upright (90 deg) Double Swallow No Straw Liquids from Cup Small Bites and Sips Alternate Liquids/Solids Rate of Ingestion Change Oral Check Supervision While Eating and Drinking for Safe Swallow: Total Assistance (1:1) Foods to Avoid: Mixed consistency solids. Swallowing Recommended Treatments: Compens. Strategy Educat. Recommendation for Speech: Inpatient Speech Therapy Comment: Recommend start diet of GROUND/MECH ALTERED SOLID (NDD2) with NECTAR-THICK LIQUIDS. MEDS WHOLE with PUREE. Pt is a 1:1 FEED. Further Speech & Language assessment is warrented if symptoms do not resolve during his inpatient stay. Frequency/Duration: Daily Date Range for Service Req: Admission -> Discharge Timeline to reassess: PRN Supervisor Webbing Clinican/Clinical Fellow: No Supervisory Statement: I have reviewed and agree with the student/clinical fellow's documentation: N/A Speech Language Pathologist: Noe Bauer M.A., CCC-MARKETING CONTENT MANAGER
[2024-05-04 11:19] LABS: Glucose, Whole Blood 145 mg/dL (60-115)
--- NOTE | 2024-05-04 12:28 | MHC.EDTECH ---
This tech checked pt vital signs, pt resting quietely, asked for food. Call fregoso within reach and family member present.
--- NOTE | 2024-05-04 13:11 | MHC.EDTECH ---
This tech changed pt linens and gown- pt soiled, [facility] cath in, call fregoso within reach.
--- NOTE | 2024-05-04 13:12 | PC.NURSE ---
Patient's group HIGHWAY MAINTENANCE SUPERVISOR states patient is claustrophobic, spoke to Dr. Pennington about premedicating patient before MRI, Ativan ordered. Notified [facility] public health technologist, moe unsure when they plan to scan patient, will notify when they are able. Ativan held until MRI scan time determined.
--- NOTE | 2024-05-04 14:08 | MHC.EDTECH ---
This tech changed pt linen- pt soiled himself, elsa escobar in, call fregoso within reach.
--- NOTE | 2024-05-04 14:30 | PC.NURSE ---
Spoke w/ Jessica FLANAGAN from [facility], reviewed current plan of care, MUSIC PUBLICIST/OT/PT/Neuro Consult results. Patient still awaiting MRI/bed assignment. long-term OFFICE EQUIPMENT TECHNICIAN remains at bedside.
--- NOTE | 2024-05-04 14:42 | PC.NURSE ---
Spoke to MRI, they are training until 4:30pm, will be scanned after training is done. wildland fire operations specialist made aware.
[2024-05-04] MEDS: Gabapentin 100 MG CAPSULE PO ×2 (16:18→21:26)
--- NOTE | 2024-05-04 16:27 | PC.NURSE ---
Dr. Pennington called regarding patient's MRI, informed about training and delay in MRI. F/u w/ MRI regarding time, anytime after 4:30p patient to be scanned.
[2024-05-04] MEDS: LORazepam 2 MG/ML VIAL 1 MG IVPUSH (16:44)
--- NOTE | 2024-05-04 17:52 | P.PNIM_ITS ---
Subjective Subjective Date of Service: 05/04/24 Interval History: left sided weakness Review of Systems able to say his name move hands and wiggle toes Physical Exam 2 Vital Signs: Vital Signs: Last Vital Signs Temp 97.5 F 05/04/24 12:00 Pulse 73 05/04/24 12:00 Resp 15 05/04/24 12:00 BP 167/90 H 05/04/24 12:00 Pulse Ox 98 05/04/24 12:00 O2 Del Method Room Air 05/04/24 12:00 BMI result Body Mass Index 24.0 Appearance: Alert.? Oriented X1? cvs: rrr, [id number] . res: clear to auscultation ,no rhonchii or wheezing abd: no rebound or guarding ,nt, bs present. ext pulses present , no cyanosis . neuro: axo1, left sided weakness somewhat improving Objective Data Active Medications Acetaminophen (Acetaminophen 325 Mg Tablet) 975 mg PO Q6H PRN PRN Reason: Pain, Mild (Pain Scale 1-3), fever or headache Aspirin (Aspirin 81 Mg Tab.Chew) 81 mg PO DAILY [facility] Last Admin: 05/04/24 10:18 Dose: 81 mg Documented By: EMANI Atorvastatin Calcium (Atorvastatin Calcium 40 Mg Tablet) 40 mg PO BEDTIME [facility] Calcium Carbonate (Calcium Carbonate 750 Mg Tab.Chew) 750 mg PO Q4H PRN PRN Reason: Heartburn Carbidopa/Levodopa (Carbidopa/Levodopa 25/100 Tablet) 1.5 tab PO QID [facility] Last Admin: 05/04/24 13:02 Dose: 1.5 tab Documented By: SYLWIA Divalproex Sodium (Divalproex Sodium Sprinkles 125 Mg ) 500 mg PO BID [facility] Doxazosin Mesylate (Doxazosin Mesylate 2 Mg Tablet) 8 mg PO BEDTIME [facility] Doxycycline Monohydrate (Doxycycline Monohydrate 100 Mg Capsule) 100 mg PO BID [facility] Escitalopram Oxalate (Escitalopram Oxalate 10 Mg Tablet) 10 mg PO DAILY [facility] Finasteride (Finasteride 5 Mg Tablet) 5 mg PO DAILY [facility] Gabapentin (Gabapentin 100 Mg Capsule) 100 mg PO TID [facility] Last Admin: 05/04/24 16:18 Dose: 100 mg Documented By: SYLWIA Gabapentin (Gabapentin 300 Mg Capsule) 300 mg PO BEDTIME [facility] Glucose (Glucose Gel 15 Gm Gel..Gram.) 15 gm PO Q15M PRN; Protocol PRN Reason: per Hypoglycemia Standing Ord. Heparin Sodium (Porcine) (Heparin Sodium,Porcine 5,000 Unit/Ml Vial) 5,000 unit SUBCUT Q8H [facility] Last Admin: 05/04/24 10:18 Dose: 5,000 unit Documented By: EMANI Dextrose (D10) 250 mls @ 750 mls/hr IV Q15M PRN; Protocol PRN Reason: per Hypoglycemia Standing Ord. Insulin Human Lispro (Insulin Lispro 100 Unit/Ml 3 Ml Vial) 0 unit SUBCUT Q6H [facility]; Protocol Last Admin: 05/04/24 11:29 Dose: Not Given Documented By: SYLWIA Non-Admin Reason: No Insulin Coverage Lisinopril (Lisinopril 10 Mg Tablet) 10 mg PO DAILY [facility]; Protocol Lorazepam (Lorazepam 0.5 Mg Tablet) 2.5 mg PO BID PRN PRN Reason: Agitation Olanzapine (Olanzapine 10 Mg Tablet) 10 mg PO BEDTIME [facility] Sodium Chloride (0.9 % Sodium Chloride Flush 3 Ml Syringe) 3 ml IVFLUSH QSHIFT [facility] Last Admin: 05/04/24 16:18 Dose: 3 ml Documented By: SYLWIA Topiramate (Topiramate 25 Mg Tablet) 50 mg PO BID [facility] Labs 05/04/24 04:53 05/04/24 04:53 Labs: Laboratory Results - last 24 hr 05/03/24 05/03/24 05/04/24 18:46 23:43 04:53 MCV 94.7 MCH 31.6 MCHC 33.3 RDW 13.4 Plt Count 201 MPV 8.7 L Immature Gran % (Auto) 0.5 H Neut % (Auto) 50.9 Lymph % (Auto) 29.9 [place] % (Auto) 13.9 H Eos % (Auto) 4.1 H Baso % (Auto) 0.7 Lymph # (Auto) 1.2 [place] # (Auto) 0.6 Eos # (Auto) 0.2 Baso # (Auto) 0.0 Abs Immat Gran (auto) 0.02 Absolute Neuts (auto) 2.1 Absolute Nucleated RBC 0.000 Nucleated RBC % (auto) 0.0 Anion Gap 15 Estim Creat Clear Calc 83.4 Estimated GFR > 60 POC Glucose 116 H Random Glucose 79 Estimat Average Glucose 105 Hemoglobin A1c % 5.3 Calcium 9.2 D Triglycerides 111 Cholesterol 103 LDL Cholesterol, Calc 55 HDL Cholesterol 26 L Urine Color Yellow Urine Appearance Clear Urine pH 7.0 Ur Specific [place] 1.025 Urine Protein Negative Urine Glucose (UA) Negative Urine Ketones 15 Urine Blood Negative Urine Nitrite Negative Ur Leukocyte Esterase Negative 05/04/24 05/04/24 05:08 11:15 MCV MCH MCHC RDW Plt Count MPV Immature Gran % (Auto) Neut % (Auto) Lymph % (Auto) [place] % (Auto) Eos % (Auto) Baso % (Auto) Lymph # (Auto) [place] # (Auto) Eos # (Auto) Baso # (Auto) Abs Immat Gran (auto) Absolute Neuts (auto) Absolute Nucleated RBC Nucleated RBC % (auto) Anion Gap Estim Creat Clear Calc Estimated GFR POC Glucose 82 145 H Random Glucose Estimat Average Glucose Hemoglobin A1c % Calcium Triglycerides Cholesterol LDL Cholesterol, Calc HDL Cholesterol Urine Color Urine Appearance Urine pH Ur Specific [place] Urine Protein Urine Glucose (UA) Urine Ketones Urine Blood Urine Nitrite Ur Leukocyte Esterase Assessment and Plan (1) Left-sided weakness: Status: Acute Plan 74 y/o man admitted with: Left-sided weakness: Aspiration and fall precautions. Neuro checks added MRI and echo. Continue aspirin and atorvastatin (increased from 40 mg PO to 80 mg PO at bedtime). Neurology consult- Continue aspirin 81 mg a day. If MRI confirms an acute stroke would add Plavix for about 3 months. Continue his parkinsonian medications. OT, PT swallow/speech evaluation adjusted diet. Type 2 diabetes mellitus. Metformin on hold (recent administration of IV contrast) fs with Insulin sliding scale. Check hemoglobin A1c. Essential hypertension. Continue lisinopril. Hyperlipidemia. Continue statin. Parkinson's disease. Continue carbidopa-levodopa. BPH. Continue terazosin and finasteride. Mood disorder. Continue mirtazapine, Depakote, gabapentin, citalopram. Zyprexa and Topamax. Dvt prophylax: Heparin ongoing hospitalization sfor suspected stroke management and treatment. Patient will need close monitoring of vital signs and neurological status as well as neurology workup. Quality Stroke Does the patient have a stroke diagnosis?: Yes Reason for No Anti-thrombotic by Day Two: Not indicated (Unclear) VTE Prior VTE?: No VTE Risk Level:: Medical - moderate - high VTE Device Contraindication: Treatment Not Indicated VTE Drug Contraindication: N/A - Med Ordered
[2024-05-04 18:23] LABS: Glucose, Whole Blood 117 mg/dL (60-115)
--- NOTE | 2024-05-04 18:49 | MHC.EDTECH ---
This tech checked pt blood sugar, pt sleeping, call fregoso within reach.
--- NOTE | 2024-05-04 19:44 | MHC.EDTECH ---
This tech changed pt [place] cath, pt call within reach.
[2024-05-04 20:09] LABS: Glucose, Whole Blood 158 mg/dL (60-115)
[2024-05-04] MEDS: Insulin Lispro 100 UNIT/ML 3 ML VIAL SUBCUT (21:26)
[2024-05-04] MEDS: Doxycycline Monohydrate 100 MG CAPSULE PO (21:26)
[2024-05-04] MEDS: Atorvastatin Calcium 40 MG TABLET PO (21:26)
[2024-05-04] MEDS: Doxazosin Mesylate 2 MG TABLET 8 MG PO (21:28)
[2024-05-04] MEDS: OLANZapine 10 MG TABLET PO (21:37)
[2024-05-05] VITALS (8 sets, daily range): BP systolic 86–148; BP diastolic 56–95; PULSE 65–87; RESP 18–20; TEMP 36.1–37; O2SAT 93–99
[2024-05-05] MEDS: Heparin Sodium,Porcine 5,000 UNIT/ML VIAL 5000 UNIT SUBCUT ×3 (00:59→16:44)
[2024-05-05] MEDS: 0.9 % Sodium Chloride Flush 3 ML SYRINGE IVFLUSH ×3 (01:00→16:45)
[2024-05-05 06:10] LABS: Glucose, Whole Blood 86 mg/dL (60-115)
[2024-05-05] MEDS: Topiramate 25 MG TABLET 50 MG PO ×2 (10:33→21:02)
[2024-05-05] MEDS: Carbidopa/Levodopa 25/100 TABLET 1.5 TAB PO ×4 (10:34→21:01)
[2024-05-05] MEDS: Doxycycline Monohydrate 100 MG CAPSULE PO ×2 (10:34→21:01)
[2024-05-05] MEDS: Divalproex Sodium Sprinkles 125 MG CAP.DR.SPR 500 MG PO ×2 (10:34→21:02)
[2024-05-05] MEDS: Escitalopram Oxalate 10 MG TABLET PO (10:35)
[2024-05-05] MEDS: lisinopriL 10 MG TABLET PO (10:35)
[2024-05-05] MEDS: Finasteride 5 MG TABLET PO (10:35)
[2024-05-05] MEDS: Aspirin 81 MG TAB.CHEW PO (10:35)
[2024-05-05] MEDS: Gabapentin 100 MG CAPSULE PO ×3 (10:37→21:01)
--- NOTE | 2024-05-05 10:39 | MHC.CM.PN ---
Per ROUNDS discussion, Patient is not yet medically cleared for dc (w/u for suspected Stroke); returning to the Intermediate is the goal and CM will continue to follow.
[2024-05-05 10:56] LABS: Glucose, Whole Blood 114 mg/dL (60-115)
--- NOTE | 2024-05-05 12:16 | MHC.SL.SWA ---
Risk of Aspiration Due to: Mental status Dysphasia Diet Status: DOWNGRADE liquids Liquid Consistency and Strategies for Safe Swallow: Liquid Intake Recommendation: Honey Thick Liquid Intake Strategies: No Straws Double Swallow Liquids by Teaspoon Only Solid Food Consistency: Dietary Recommendations: Grnd/Mech Altered (NDD2) Oral Medication Intake: Crushed with Puree Please contact the pharmacy regarding appropriate crushable or liquid drug formulations that are available whenever modified delivery is recommended. Compensatory Strategies and Precautions to be Taken for Safe Swallow: Sitting Upright (90 deg) Double Swallow No Straw Liquids from Spoon Small Bites and Sips Alternate Liquids/Solids Rate of Ingestion Change Oral Check Supervision While Eating and Drinking for Safe Swallow: Total Assistance (1:1) Swallowing Recommended Treatments: Compens. Strategy Educat. Recommendation for Speech: Inpatient Speech Therapy Comment: Recommend DOWNGRADE to HONEY THICK liquids ([place] ONLY). Continue with GROUND SOLIDS and pills CRUSHED in PUREE. Patient requires 1-1 feed and cues to double swallow. May consider administration of empty spoon between bites to elicit swallow. Slow rate of PO administration. Intermittent oral check for pocketed food. care home requesting MBSS. Pt has hx for dysphagia w/ last MBSS in November 2022. Pt would benefit from repeat MBSS (inpatient vs. outpatient). Medical Records Secretary Clinican/Clinical Fellow: No Supervisory Statement: I have reviewed and agree with the student/clinical fellow's documentation: N/A Speech Language Pathologist: Marguerite Woodson M.A., CCC-COLLAR PADDER BLINDSTITCH
--- NOTE | 2024-05-05 16:03 | HO.PM.IMPN ---
Subjective Subjective Date of Service: 05/05/24 Interval History: left sided weakness Review of Systems seems similar able to move est, generlaised weak also has cough /eating Physical Exam Vital Signs: Vital Signs: Last Vital Signs Temp 97.2 F 05/05/24 15:33 Pulse 78 05/05/24 15:33 Resp 18 05/05/24 15:33 BP 124/68 05/05/24 15:33 Pulse Ox 95 05/05/24 15:33 O2 Del Method Room Air 05/05/24 15:33 BMI result Body Mass Index 22.5 Appearance: Alert.? Oriented X1? cvs: rrr, [id number] . res: clear to auscultation ,no rhonchii or wheezing abd: no rebound or guarding ,nt, bs present. ext pulses present , no cyanosis . neuro: axo1, left sided weakness somewhat improving Objective Data Active Medications Acetaminophen (Acetaminophen 325 Mg Tablet) 975 mg PO Q6H PRN PRN Reason: Pain, Mild (Pain Scale 1-3), fever or headache Aspirin (Aspirin 81 Mg Tab.Chew) 81 mg PO DAILY [facility] Last Admin: 05/05/24 10:35 Dose: 81 mg Documented By: LAUREN Atorvastatin Calcium (Atorvastatin Calcium 40 Mg Tablet) 40 mg PO BEDTIME [facility] Last Admin: 05/04/24 21:26 Dose: 40 mg Documented By: AMILCAR Calcium Carbonate (Calcium Carbonate 750 Mg Tab.Chew) 750 mg PO Q4H PRN PRN Reason: Heartburn Carbidopa/Levodopa (Carbidopa/Levodopa 25/100 Tablet) 1.5 tab PO QID [facility] Last Admin: 05/05/24 14:10 Dose: 1.5 tab Documented By: LAUREN Divalproex Sodium (Divalproex Sodium Sprinkles 125 Mg ) 500 mg PO BID [facility] Last Admin: 05/05/24 10:34 Dose: 500 mg Documented By: LAUREN Doxazosin Mesylate (Doxazosin Mesylate 2 Mg Tablet) 8 mg PO BEDTIME [facility] Last Admin: 05/04/24 21:28 Dose: 8 mg Documented By: AMILCAR Doxycycline Monohydrate (Doxycycline Monohydrate 100 Mg Capsule) 100 mg PO BID [facility] Last Admin: 05/05/24 10:34 Dose: 100 mg Documented By: LAUREN Escitalopram Oxalate (Escitalopram Oxalate 10 Mg Tablet) 10 mg PO DAILY [facility] Last Admin: 05/05/24 10:35 Dose: 10 mg Documented By: LAUREN Finasteride (Finasteride 5 Mg Tablet) 5 mg PO DAILY [facility] Last Admin: 05/05/24 10:35 Dose: 5 mg Documented By: LAUREN Gabapentin (Gabapentin 100 Mg Capsule) 100 mg PO TID [facility] Last Admin: 05/05/24 14:11 Dose: 100 mg Documented By: LAUREN Gabapentin (Gabapentin 300 Mg Capsule) 300 mg PO BEDTIME [facility] Last Admin: 05/04/24 21:26 Dose: 300 mg Documented By: AMILCAR Glucose (Glucose Gel 15 Gm Gel..Gram.) 15 gm PO Q15M PRN; Protocol PRN Reason: per Hypoglycemia Standing Ord. Heparin Sodium (Porcine) (Heparin Sodium,Porcine 5,000 Unit/Ml Vial) 5,000 unit SUBCUT Q8H [facility] Last Admin: 05/05/24 09:22 Dose: 5,000 unit Documented By: LAUREN Dextrose (D10) 250 mls @ 750 mls/hr IV Q15M PRN; Protocol PRN Reason: per Hypoglycemia Standing Ord. Insulin Human Lispro (Insulin Lispro 100 Unit/Ml 3 Ml Vial) 0 unit SUBCUT Q6H [facility]; Protocol Last Admin: 05/05/24 12:31 Dose: Not Given Documented By: LAUREN Non-Admin Reason: No Insulin Coverage Lisinopril (Lisinopril 10 Mg Tablet) 10 mg PO DAILY [facility]; Protocol Last Admin: 05/05/24 10:35 Dose: 10 mg Documented By: LAUREN Lorazepam (Lorazepam 0.5 Mg Tablet) 2.5 mg PO BID PRN PRN Reason: Agitation Olanzapine (Olanzapine 10 Mg Tablet) 10 mg PO BEDTIME [facility] Last Admin: 05/04/24 21:37 Dose: 10 mg Documented By: AMILCAR Sodium Chloride (0.9 % Sodium Chloride Flush 3 Ml Syringe) 3 ml IVFLUSH QSHIFT [facility] Last Admin: 05/05/24 09:23 Dose: 3 ml Documented By: LAUREN Topiramate (Topiramate 25 Mg Tablet) 50 mg PO BID [facility] Last Admin: 05/05/24 10:33 Dose: 50 mg Documented By: LAUREN Labs 05/04/24 04:53 05/04/24 04:53 Labs: Laboratory Results - last 24 hr 05/04/24 05/04/24 05/05/24 18:19 20:06 06:05 POC Glucose 117 H 158 H 86 05/05/24 10:49 POC Glucose 114 Assessment and Plan (1) Left-sided weakness: Status: Acute Assessment and Plan: 74 y/o man admitted with: Left-sided weakness: Aspiration and fall precautions. Neuro checks echo- Conclusions: - 1. Low normal LV ejection fraction 50-55% with mild LVH with impaired relaxation filling pattern 2. Trivial aortic regurgitation with mild calcific aortic valve and mitral valve changes noted 3. Normal measured RV systolic pressure Continue aspirin and atorvastatin (increased from 40 mg PO to 80 mg PO at bedtime). Neurology consult- Continue aspirin 81 mg a day. MRI limited -no acute large infarct. Continue his parkinsonian medications. pt eval. OT, PT swallow/speech evaluation adjusted diet. Type 2 diabetes mellitus. Metformin on hold (recent administration of IV contrast) fs with Insulin sliding scale. Check hemoglobin A1c. Essential hypertension. Continue lisinopril. Hyperlipidemia. Continue statin. Parkinson's disease. Continue carbidopa-levodopa. BPH. Continue terazosin and finasteride. Mood disorder. Continue mirtazapine, Depakote, gabapentin, citalopram. Zyprexa and Topamax. Dvt prophylax: Heparin ongoing hospitalization sfor suspected stroke management and treatment. Patient will need close monitoring of vital signs and neurological status as well as neurology workup. Quality Stroke Does the patient have a stroke diagnosis?: Yes Reason for No Anti-thrombotic by Day Two: Not indicated (Unclear) VTE Prior VTE?: No VTE Risk Level:: Medical - moderate - high VTE Device Contraindication: Treatment Not Indicated VTE Drug Contraindication: N/A - Med Ordered
[2024-05-05 17:01] LABS: Glucose, Whole Blood 96 mg/dL (60-115)
[2024-05-05] MEDS: OLANZapine 10 MG TABLET PO (21:00)
[2024-05-05] MEDS: Atorvastatin Calcium 40 MG TABLET PO (21:00)
[2024-05-05] MEDS: Gabapentin 300 MG CAPSULE PO (21:01)
[2024-05-05] MEDS: Doxazosin Mesylate 2 MG TABLET 8 MG PO (21:03)
[2024-05-05 23:59] LABS: Glucose, Whole Blood 106 mg/dL (60-115)
[2024-05-06] VITALS (10 sets, daily range): BP systolic 87–167; BP diastolic 56–90; PULSE 67–87; RESP 16–20; TEMP 36.1–36.5; O2SAT 94–100
--- NOTE | 2024-05-06 00:22 | PM.EVENT ---
Event Note Date of Service: 05/06/24 Event Note: patient sbp 87, not due to sepsis (possibly due to meds), will order 1L ns Time Spent With Patient Time: Total time managing care of this patient today ____ minutes.
[2024-05-06] MEDS: 0.9 % Sodium Chloride 1,000 ML 999 ML IV (00:40)
[2024-05-06] MEDS: 0.9 % Sodium Chloride Flush 3 ML SYRINGE IVFLUSH ×3 (00:40→17:09)
[2024-05-06] MEDS: Heparin Sodium,Porcine 5,000 UNIT/ML VIAL 5000 UNIT SUBCUT ×3 (00:50→17:10)
[2024-05-06 06:02] LABS: Glucose, Whole Blood 101 mg/dL (60-115)
[2024-05-06] MEDS: Aspirin 81 MG TAB.CHEW PO (07:46)
[2024-05-06] MEDS: Doxycycline Monohydrate 100 MG CAPSULE PO ×2 (07:46→21:08)
[2024-05-06] MEDS: Carbidopa/Levodopa 25/100 TABLET 1.5 TAB PO ×3 (07:46→21:08)
[2024-05-06] MEDS: Gabapentin 100 MG CAPSULE PO (07:47)
[2024-05-06] MEDS: lisinopriL 10 MG TABLET PO (07:47)
[2024-05-06] MEDS: Divalproex Sodium Sprinkles 125 MG CAP.DR.SPR 500 MG PO ×2 (07:48→21:09)
[2024-05-06] MEDS: Escitalopram Oxalate 10 MG TABLET PO (07:48)
[2024-05-06] MEDS: LORazepam 0.5 MG TABLET 2.5 MG PO (07:48)
[2024-05-06] MEDS: Topiramate 25 MG TABLET 50 MG PO ×2 (07:48→21:08)
[2024-05-06] MEDS: Finasteride 5 MG TABLET PO (07:49)
[2024-05-06 10:58] LABS: Glucose, Whole Blood 192 mg/dL (60-115)
[2024-05-06 16:10] LABS: COVID-19 Test Negative (Negative); IDNOW Serial# 152EDE1D
--- NOTE | 2024-05-06 16:11 | HO.PM.IMPN ---
Subjective Subjective Date of Service: 05/06/24 Interval History: left sided weakness Review of Systems overnight event noted transient low bp parkinsons tremers Physical Exam Vital Signs: Vital Signs: Last Vital Signs Temp 97.4 F 05/06/24 15:33 Pulse 72 05/06/24 15:33 Resp 20 05/06/24 15:33 BP 167/90 H 05/06/24 15:33 Pulse Ox 97 05/06/24 15:33 O2 Del Method Room Air 05/06/24 15:33 O2 Flow Rate 2 05/06/24 07:01 FiO2 98 05/06/24 00:19 BMI result Body Mass Index 22.5 Appearance: Alert.? Oriented X1? cvs: rrr, [id number] . res: clear to auscultation ,no rhonchii or wheezing abd: no rebound or guarding ,nt, bs present. ext pulses present , no cyanosis . neuro: axo1, left sided weakness , moves all ext Objective Data Active Medications Acetaminophen (Acetaminophen 325 Mg Tablet) 975 mg PO Q6H PRN PRN Reason: Pain, Mild (Pain Scale 1-3), fever or headache Aspirin (Aspirin 81 Mg Tab.Chew) 81 mg PO DAILY [facility] Last Admin: 05/06/24 07:46 Dose: 81 mg Documented By: ANAT Atorvastatin Calcium (Atorvastatin Calcium 40 Mg Tablet) 40 mg PO BEDTIME [facility] Last Admin: 05/05/24 21:00 Dose: 40 mg Documented By: AMILCAR Calcium Carbonate (Calcium Carbonate 750 Mg Tab.Chew) 750 mg PO Q4H PRN PRN Reason: Heartburn Carbidopa/Levodopa (Carbidopa/Levodopa 25/100 Tablet) 1.5 tab PO QID [facility] Last Admin: 05/06/24 15:01 Dose: Not Given Documented By: ANAT Non-Admin Reason: pt asleep Divalproex Sodium (Divalproex Sodium Sprinkles 125 Mg ) 500 mg PO BID [facility] Last Admin: 05/06/24 07:48 Dose: 500 mg Documented By: ANAT Doxazosin Mesylate (Doxazosin Mesylate 2 Mg Tablet) 8 mg PO BEDTIME [facility] Last Admin: 05/05/24 21:03 Dose: 8 mg Documented By: AMILCAR Doxycycline Monohydrate (Doxycycline Monohydrate 100 Mg Capsule) 100 mg PO BID [facility] Last Admin: 05/06/24 07:46 Dose: 100 mg Documented By: ANAT Escitalopram Oxalate (Escitalopram Oxalate 10 Mg Tablet) 10 mg PO DAILY [facility] Last Admin: 05/06/24 07:48 Dose: 10 mg Documented By: ANAT Finasteride (Finasteride 5 Mg Tablet) 5 mg PO DAILY [facility] Last Admin: 05/06/24 07:49 Dose: 5 mg Documented By: ANAT Gabapentin (Gabapentin 300 Mg Capsule) 300 mg PO BEDTIME [facility] Last Admin: 05/05/24 21:01 Dose: 300 mg Documented By: AMILCAR Gabapentin (Gabapentin 100 Mg Capsule) 100 mg PO TID PRN PRN Reason: Anxiety Glucose (Glucose Gel 15 Gm Gel..Gram.) 15 gm PO Q15M PRN; Protocol PRN Reason: per Hypoglycemia Standing Ord. Heparin Sodium (Porcine) (Heparin Sodium,Porcine 5,000 Unit/Ml Vial) 5,000 unit SUBCUT Q8H [facility] Last Admin: 05/06/24 07:49 Dose: 5,000 unit Documented By: ANAT Dextrose (D10) 250 mls @ 750 mls/hr IV Q15M PRN; Protocol PRN Reason: per Hypoglycemia Standing Ord. Insulin Human Lispro (Insulin Lispro 100 Unit/Ml 3 Ml Vial) 0 unit SUBCUT Q6H [facility]; Protocol Last Admin: 05/06/24 15:00 Dose: Not Given Documented By: ANAT Non-Admin Reason: pt sleeping and didnt eat lunch \ Olanzapine (Olanzapine 10 Mg Tablet) 10 mg PO BEDTIME [facility] Last Admin: 05/05/24 21:00 Dose: 10 mg Documented By: AMILCAR Sodium Chloride (0.9 % Sodium Chloride Flush 3 Ml Syringe) 3 ml IVFLUSH QSHIFT [facility] Last Admin: 05/06/24 07:49 Dose: 3 ml Documented By: ANAT Topiramate (Topiramate 25 Mg Tablet) 50 mg PO BID [facility] Last Admin: 05/06/24 07:48 Dose: 50 mg Documented By: ANAT Labs 05/04/24 04:53 05/04/24 04:53 Labs: Laboratory Results - last 24 hr 05/05/24 05/05/24 05/06/24 16:58 23:53 05:58 POC Glucose 96 106 101 COVID-19 (MICHELLE) COVID-19 Clin Com 05/06/24 05/06/24 10:50 15:35 POC Glucose 192 H COVID-19 ([facility]) Negative COVID-19 Clin Com See Note Assessment and Plan (1) Left-sided weakness: Status: Acute Assessment and Plan: 74 y/o man admitted with: Left-sided weakness: Aspiration and fall precautions. Neuro checks echo- Conclusions: - 1. Low normal LV ejection fraction 50-55% with mild LVH with impaired relaxation filling pattern 2. Trivial aortic regurgitation with mild calcific aortic valve and mitral valve changes noted 3. Normal measured RV systolic pressure Continue aspirin and atorvastatin (increased from 40 mg PO to 80 mg PO at bedtime). Neurology consult- Continue aspirin 81 mg a day. MRI limited -no acute large infarct. Continue his parkinsonian medications. d/w neuro-continue asa/statin, mri as above neg OT/PT swallow/speech evaluation Type 2 diabetes mellitus. Metformin on hold (recent administration of IV contrast) fs with Insulin sliding scale , hold coverage below 200 mg/dl Essential hypertension. Continue lisinopril. Hyperlipidemia. Continue statin. Parkinson's disease. Continue carbidopa-levodopa. BPH. Continue terazosin and finasteride. Mood disorder. Continue mirtazapine, Depakote, gabapentin, citalopram. Zyprexa and Topamax. ativan stopped and gabapentine adjusted ( as per group care worker he does not take ativan)-also patient gets sleepy with ativan transient low bp : likely sec to npo/htn meds impproved with ivf added d5ns no sepsis moniter bp closely Dvt prophylax: Heparin ongoing hospitalization sfor suspected stroke management and treatment. Patient will need close monitoring of vital signs and neurological status as well as neurology workup. Quality Stroke Does the patient have a stroke diagnosis?: Yes Reason for No Anti-thrombotic by Day Two: Not indicated (Unclear) VTE Prior VTE?: No VTE Risk Level:: Medical - moderate - high VTE Device Contraindication: Treatment Not Indicated VTE Drug Contraindication: N/A - Med Ordered
[2024-05-06 16:59] LABS: Glucose, Whole Blood 115 mg/dL (60-115)
[2024-05-06] MEDS: Dextrose 5 % and 0.9 % NaCl 1,000 ML 80 ML IVCONT (17:09)
--- NOTE | 2024-05-06 18:48 | MHC.SLORD ---
Speech Language Pathology Order Status: Attempted to see patient at lunch, patient was sleeping soundly, with RN advising not to wake patient for meal (had difficulty sleeping overnight). CELL BIOLOGIST was unable to see patient later in PM due to scheduling issue.
[2024-05-06] MEDS: Atorvastatin Calcium 40 MG TABLET PO (21:08)
[2024-05-06] MEDS: Doxazosin Mesylate 2 MG TABLET 8 MG PO (21:09)
[2024-05-06 23:47] LABS: Glucose, Whole Blood 178 mg/dL (60-115)
[2024-05-07] VITALS (8 sets, daily range): BP systolic 126–167; BP diastolic 60–93; PULSE 73–85; RESP 17–21; TEMP 35.8–36.4; O2SAT 95–100
--- NOTE | 2024-05-07 | EEG_ITS ---
This is a 16-channel EEG with an EKG lead. The patient is reported awake and confused during the tracing. Background EEG rhythm is 7-8 hertz low to medium amplitude with intermittent left hemispheric sharp waves. Photic stimulation and hyperventilation were not performed. Some lead and muscle artifacts were noted. Cardiac lead does not reveal any significant abnormality. IMPRESSION: Mildly abnormal EEG suggestive of underlying tendency for partial seizures from left hemisphere. MD ALLISON Florez/LUZ / [phone]
[2024-05-07] MEDS: Heparin Sodium,Porcine 5,000 UNIT/ML VIAL 5000 UNIT SUBCUT ×3 (01:18→17:41)
[2024-05-07] MEDS: Dextrose 5 % and 0.9 % NaCl 1,000 ML 80 ML IVCONT (03:53)
[2024-05-07 06:37] LABS: Glucose, Whole Blood 115 mg/dL (60-115)
[2024-05-07] MEDS: Doxycycline Monohydrate 100 MG CAPSULE PO ×2 (09:47→22:33)
[2024-05-07] MEDS: Finasteride 5 MG TABLET PO (09:47)
[2024-05-07] MEDS: Aspirin 81 MG TAB.CHEW PO (09:47)
[2024-05-07] MEDS: Topiramate 25 MG TABLET 50 MG PO ×2 (09:48→22:32)
[2024-05-07] MEDS: Escitalopram Oxalate 10 MG TABLET PO (09:48)
[2024-05-07] MEDS: Divalproex Sodium Sprinkles 125 MG CAP.DR.SPR 500 MG PO ×2 (09:48→22:32)
[2024-05-07] MEDS: Carbidopa/Levodopa 25/100 TABLET 1.5 TAB PO ×3 (09:48→22:33)
[2024-05-07] MEDS: 0.9 % Sodium Chloride Flush 3 ML SYRINGE IVFLUSH ×3 (09:49→22:33)
--- NOTE | 2024-05-07 10:43 | MHC.CM.PN ---
Per MD in [facility], Patient is medically cleared for dc today, to return to his [facility]. CM spoke with Nurse/Arminda @ [phone] who indicates that the is not prepared for Patient's return today (needs to do staff training, not at baseline functionally, must speak with MD to understand reason for weakness/decline). MD is aware and agreeable to call Arminda. CM will follow.
[2024-05-07 11:43] LABS: Glucose, Whole Blood 100 mg/dL (60-115)
--- NOTE | 2024-05-07 13:24 | MHC.SL.SWA ---
Speech Pathologist Impression: Risk of aspiration, oropharyngeal dysphagia Dysphasia Diet Status: Continue with GROUND SOLIDS and HONEY THICK liquids (via teaspoon or individual sips by CONTROLLED cup) and pills CRUSHED in PUREE. Patient requires 1-1 feed and cues to double swallow. May consider administration of empty spoon between bites to elicit swallow. Slow rate of PO administration. Intermittent oral check for pocketed food. skilled nursing requesting MBSS. Pt has hx for dysphagia w/ last MBSS in November 2022. Pt would benefit from repeat MBSS (inpatient vs. outpatient) when appropriate. At this time, radiologist is unavailable. If it can't be done during patient's hospitalization, recommend exam on outpatient basis. skilled nursing staff reports pt's speech consistent w/ baseline speech. Liquid Consistency and Strategies for Safe Swallow: Liquid Intake Recommendation: Honey Thick Liquid Intake Strategies: Small Sips No Straws Solid Food Consistency: Dietary Recommendations: Grnd/Mech Altered (NDD2) Additional Modifications to Solid Foods: Double swallow Oral Medication Intake: Crushed with Puree Please contact the pharmacy regarding appropriate crushable or liquid drug formulations that are available whenever modified delivery is recommended. Compensatory Strategies and Precautions to be Taken for Safe Swallow: Sitting Upright (90 deg) Double Swallow No Straw Small Bites and Sips Alternate Liquids/Solids Rate of Ingestion Change Oral Check Avoid Specific Foods Supervision While Eating and Drinking for Safe Swallow: Total Assistance (1:1) Foods to Avoid: Hard, tough to chew solids; mixed consistencies Swallowing Recommended Treatments: Compens. Strategy Educat. Recommendation for Speech: Inpatient Speech Therapy Frequency/Duration: Daily Date Range for Service Req: Admission - Discharge Timeline to reassess: PRN Portable Machine Sander Clinican/Clinical Fellow: No Supervisory Statement: I have reviewed and agree with the student/clinical fellow's documentation: N/A Speech Language Pathologist: Padmaja Benjamin M.A., CCC-SCIENCE AND OPERATIONS OFFICER
--- NOTE | 2024-05-07 13:56 | MHC.CM.PN ---
Per MD, Patient is medically cleared for dc to return to his Nursing Home today at 3PM, via [facility]. has received all requested documentation. CM attempted X2 to reach Guardian/Amrit @ [phone] but mailbox is full/no message could be left. [facility] is being mailed certified letter to Amrit and a copy has been placed on the chart.
--- NOTE | 2024-05-07 14:16 | MHC.CM.PN ---
rod cup filler changed via [employer]text with Dimas from [facility] to 3:30 to allow for completion of EEG.
--- NOTE | 2024-05-07 14:47 | MHC.CM.PN ---
Per MD's request, garbage pick up man changed to 4PM.
--- NOTE | 2024-05-07 15:11 | P.DS_ITS ---
DS: Providers Provider Date of Service: 05/07/24 Date of admission: 05/03/24 22:41 Date of discharge: 05/07/24 Primary care physician: Claire Bender MD Consults: 05/03/24 22:45 Consult to Neurology Routine Consulting Provider: Naye Chavis Reason for consultation: Dysarthria, right-sided weakness, neglecting right side Has provider been notified: No Attending physician on discharge: Yi Pennington Discharging clinician: Yi Pennington DS: Diagnosis Discharge Diagnosis (1) Left-sided weakness: Status: Acute DS: Summary Hospital Course Hospital Course: 74 years old man with past medical history significant for mental disability, schizophrenia, stroke, type 2 diabetes mellitus on metformin, Parkinson's di sease, essential hypertension and hyperlipidemia was brought to the emergency department via EMS after he was noted to have speech difficulty and left-sided weakness. These were noted at 1:30 PM. The patient also complained of left- sided headache. No other symptoms reported such as nausea, vomiting, diarrhea, fever or chills. HPI was mostly provided by correction staff (at bedside and another member was on the phone). No seizure activity was observed. In the ED, he was found to have stable vital signs. Blood workup including CBC, CMP and troponin are unremarkable. INR is normal. Urinalysis normal. Head CT scan without contrast showed no convincing evidence of acute intracranial hemorrhage or infarction, however, the study is limited due to extensive motion artifact and beam hardening artifact. Head and neck CTA showed no large vessel occlusion, saccular aneurysm or dissection. ED tx: Morphine 4 mg IV, acetaminophen 975 mg PO, aspirin 243 mg PO. tPA not given. Hospital course: patient came to hospital- Because of left-sided weakness,speech difficulty: Patient was on aspirin, statin 40 mg bedtime, CTA head and MRI(limited) was done-negative for acute stroke. Seen by Neurology and imaging was discussed- initially thought to have possible right him hemispheric infarct but since imaging negative, CVA is less likely. Possible the patient underlying baseline dementia, Parkinson tremor might be contributing, EEg -also done seems abnormal,neuro recomended keppra 500 mg po bid for possble seizure- Recommended to continue currently aspirin statin, patient was monitored -seems improving ,moves all extermities ,also more awake ,alert , no active seizure noted. Patient is Ativan discontinued causes sleepiness, also confirmed with the halfway patient is not taking Ativan. Also patient takes gabapentin 100 mg t.i.d. p.r.n. ,consider adjusting mood medications outpatient to avoid sedation. Also patient had transient episode of low blood pressure: Secondary to low p.o. intake and blood pressure medication-patient was given fluids and patient is taking p.o. better- blood pressure seems to be improved, resume lisinopril. diabetes : fs seems mostly in 100-120 range , hold lantus ,moniter fs ,reintroduce if needed outpatient . plan: continue asa/statin moniter cmp and lipid panel in 1 week. consider neurology follow up outpatient . diabetes : fs seems mostly in 100-120 range , hold lantus ,moniter fs ,reintroduce if needed outpatient . d/w guardian and halfway in detail, total time spent 40 min. Time Attestation Total time managing care of this patient today: 40 mintues. Discharge Coordination Time (in mins): 40 min Quality: Safe Use of Opioids Does Pt have an Active Cancer Diagnosis on the Problem List?: No Quality: Stroke Does the patient have a stroke diagnosis?: No Physical Exam Vital Signs: Vital Signs: Last Vital Signs Temp 97.5 F 05/07/24 12:00 Pulse 76 05/07/24 12:00 Resp 18 05/07/24 12:00 BP 164/87 H 05/07/24 12:00 Pulse Ox 98 05/07/24 12:00 O2 Del Method Room Air 05/07/24 12:00 FiO2 98 05/06/24 00:19 BMI result Body Mass Index 22.5 Appearance: more awake ,knows his name cvs: rrr, [id number] . res: clear to auscultation ,no rhonchii or wheezing abd: no rebound or guarding ,nt, bs present. ext pulses present , no cyanosis . neuro:speech somewhat better moving all ext DS: Data Data Completed and Pending Labs on day of discharge: Laboratory Results - last 24 hr 05/06/24 05/06/24 05/06/24 15:35 16:55 23:43 POC Glucose 115 178 H COVID-19 (MICHELLE) Negative COVID-19 Clin Com See Note 05/07/24 05/07/24 06:14 11:32 POC Glucose 115 100 COVID-19 (MICHELLE) COVID-19 Clin Com Imaging Chest x-ray: Radiologist's impression: ITS Impressions Head CT 05/03/24 14:38 IMPRESSION: 1. Significantly limited exam due to extensive motion artifact and beam hardening artifact. 2. No convincing evidence of acute intracranial hemorrhage or territorial infarction. However, close clinical correlation is requested. Repeat CT scan when patient is able to undergo the exam without motion is recommended. 3. Left maxillary sinus disease. This critical result was discussed with JADE Suero at 2:53 PM hours on 05/03/2024. It was ascertained that the content and urgency of the report was understood at the time of direct communication. Head/Neck CTA 05/03/24 14:51 IMPRESSION: CTA head demonstrates no large vessel occlusion, saccular aneurysm, or dissection. CTA neck demonstrates no hemodynamically significant stenosis, dissection, or aneurysm. Brain MRI 05/04/24 17:30 IMPRESSION: Significantly motion degraded, incomplete examination without axial T1-weighted no GRE sequence is obtained. Essentially nondiagnostic DWI sequence without large acute territorial acute infarct. Discharge Plan Discharge Anticipated Discharge Date/Time: 05/07/24 14:51 Patient Disposition: Home, Self-Care Discharge Diagnosis: left sided weakness ,speech abnormality Referrals: Po,Claire Christianson MD [Primary Care Provider] - 1 Week Discharge Medications: New levetiracetam [Keppra] 500 mg tablet 500 mg PO BID Qty: 60 0RF Continued mirtazapine 15 mg tablet,disintegrating 15 mg PO BEDTIME 90 Days Qty: 90 2RF (DME) THICK IT See Rx Instructions .Route .MEDSUPPLY Qty: 1 0RF Rx Instructions: As directed (DME) PRODIGY LANCET See Rx Instructions .Route .MEDSUPPLY Qty: 100 12RF Rx Instructions: As directed divalproex 125 mg capsule, delayed rel sprinkle 500 mg PO BID 90 Days Qty: 720 2RF metformin 1,000 mg tablet 1,000 mg PO BID Qty: 180 3RF topiramate [Topamax] 50 mg tablet 50 mg PO BID 90 Days Qty: 180 2RF Rx Instructions: crush and mix with soft foods carbidopa-levodopa 25-100 mg tablet 1.5 tab PO QID Qty: 168 1RF Rx Instructions: 37.5 - 150 mg to be taken 4 times a day (DME) Prodigy No Coding Strip See Rx Instructions .Route Qty: 100 6RF Rx Instructions: Test 3 times daily lisinopril 10 mg tablet 10 mg PO DAILY Qty: 30 0RF (DME) ROHO CUSHION See Rx Instructions .Route .MEDSUPPLY Qty: 1 0RF Rx Instructions: As directed (DME) SHOWER/COMMODE CHAIR ON WHEELS See Rx Instructions .Route .MEDSUPPLY Qty: 1 0RF Rx Instructions: As directed (DME) WHEELCHAIR WITH CLIPBELT CLAMP HOOKS OR TIE DOWN See Rx Instructions .Route .MEDSUPPLY Qty: 1 0RF Rx Instructions: As directed escitalopram oxalate 5 mg/5 mL solution 10 mg PO DAILY gabapentin 300 mg Capsule 300 mg PO BEDTIME finasteride 5 mg tablet 5 mg PO DAILY atorvastatin 20 mg tablet 40 mg PO BEDTIME Rx Instructions: CRUSH AND GIVEN WITH SOFT FOOD (DME) compress.stocking,knee,reg,med Misc See Rx Instructions .Route Qty: 2 0RF Rx Instructions: As directed 20-30 mm HG olanzapine [Zyprexa] 10 mg tablet 10 mg PO BEDTIME (DME) BRIEF LArge See Rx Instructions .Route .MEDSUPPLY Qty: 100 11RF Rx Instructions: As directed aspirin [Aspirin Childrens] 81 mg tablet,chewable 81 mg PO DAILY Qty: 90 3RF (DME) lancets [Prodigy Twist Top Lancet] 28 gauge misc See Rx Instructions .ROUTE .MEDSUPPLY Qty: 100 Rx Instructions: As directed terazosin 10 mg capsule 10 mg PO BEDTIME 90 Days Qty: 90 3RF Rx Instructions: open capsule and mix with soft foods (DME) diaper,brief,adult,disposable Misc See Rx Instructions .ROUTE .MEDSUPPLY Qty: 120 11RF Rx Instructions: As directed - 4x a day Changed gabapentin 100 mg capsule 100 mg PO TID PRN (Reason: anxiety) Qty: 1 0RF Held insulin glargine [Basaglar KwikPen U-100 Insulin] 100 unit/mL (3 mL) insulin pen 4 unit subcut DAILY Hold Instructions: Resume on 05/10/24. Discontinued lorazepam 0.5 mg tablet 2.5 mg PO BID PRN (Reason: Agitation) Discharge Orders: Discharge Order (Routine); Ordered 05/07/24 Ordered By: Yi Pennington Diet: Advance to usual diet Activity on Discharge: As tolerated Stand Alone Forms: Patient Portal Discharge page Print Language: [place] Care Plan Goals: patient came to hospital- Because of left-sided weakness,speech difficulty: Patient was on aspirin, statin, CTA head and MRI(limited) was done-negative for acute stroke. Seen by Neurology and imaging was discussed-initially thought to have possible right him hemispheric infarct but since imaging negative, CVA is less likely. Possible the patient underlying baseline dementia, Parkinson tremor might be contributing, EEg -also done seems abnormal,neuro recomended keppra 500 mg po bid - Recommended to continue currently aspirin statin, patient was monitored -seems improving ,moves all extermities ,also more awake ,alert . d/w guardian and halfway in detail, consider neurology follow up outpatient . Health Concerns: as above. Plan of Treatment: as above. Assessment: as above.
--- NOTE | 2024-05-07 15:18 | MHC.CM.PN ---
Johnna @ the assisted at [phone] has been notified that picking supervisor time is now 4PM.
--- NOTE | 2024-05-07 15:34 | MHC.CM.PN ---
has made an additional change,reflected in dc summary and added to required dc paperwork and both faxed to [facility] at [phone].
--- NOTE | 2024-05-07 15:43 | MHC.CM.PN ---
has made another change to paperwork, which has been faxed to @ [phone].
--- NOTE | 2024-05-07 16:00 | MHC.CM.PN ---
[facility] has canceled dc for today r/t last minute med changes and reported lack of time to do staff training on new med. MD & RN are aware.
--- NOTE | 2024-05-07 16:03 | HO.PM.IMPN ---
Subjective Subjective Date of Service: 05/07/24 Interval History: left sided weakness Review of Systems abnormal eeg placed on seiaure precautions Physical Exam Vital Signs: Vital Signs: Last Vital Signs Temp 97.5 F 05/07/24 12:00 Pulse 76 05/07/24 12:00 Resp 18 05/07/24 12:00 BP 164/87 H 05/07/24 12:00 Pulse Ox 98 05/07/24 12:00 O2 Del Method Room Air 05/07/24 12:00 O2 Flow Rate 2 05/06/24 07:01 FiO2 98 05/06/24 00:19 BMI result Body Mass Index 22.5 Appearance: more awake? cvs: rrr, [id number] . res: clear to auscultation ,no rhonchii or wheezing abd: no rebound or guarding ,nt, bs present. ext pulses present , no cyanosis . neuro: left sided weakness , moves all ext Objective Data Active Medications Acetaminophen (Acetaminophen 325 Mg Tablet) 975 mg PO Q6H PRN PRN Reason: Pain, Mild (Pain Scale 1-3), fever or headache Aspirin (Aspirin 81 Mg Tab.Chew) 81 mg PO DAILY [facility] Last Admin: 05/07/24 09:47 Dose: 81 mg Documented By: ANAT Atorvastatin Calcium (Atorvastatin Calcium 40 Mg Tablet) 40 mg PO BEDTIME [facility] Last Admin: 05/06/24 21:08 Dose: 40 mg Documented By: AMILCAR Calcium Carbonate (Calcium Carbonate 750 Mg Tab.Chew) 750 mg PO Q4H PRN PRN Reason: Heartburn Carbidopa/Levodopa (Carbidopa/Levodopa 25/100 Tablet) 1.5 tab PO QID [facility] Last Admin: 05/07/24 15:25 Dose: 1.5 tab Documented By: ANAT Divalproex Sodium (Divalproex Sodium Sprinkles 125 Mg ) 500 mg PO BID [facility] Last Admin: 05/07/24 09:48 Dose: 500 mg Documented By: ANAT Doxazosin Mesylate (Doxazosin Mesylate 2 Mg Tablet) 8 mg PO BEDTIME [facility] Last Admin: 05/06/24 21:09 Dose: 8 mg Documented By: AMILCAR Doxycycline Monohydrate (Doxycycline Monohydrate 100 Mg Capsule) 100 mg PO BID [facility] Last Admin: 05/07/24 09:47 Dose: 100 mg Documented By: ANAT Escitalopram Oxalate (Escitalopram Oxalate 10 Mg Tablet) 10 mg PO DAILY [facility] Last Admin: 05/07/24 09:48 Dose: 10 mg Documented By: ANAT Finasteride (Finasteride 5 Mg Tablet) 5 mg PO DAILY [facility] Last Admin: 05/07/24 09:47 Dose: 5 mg Documented By: ANAT Gabapentin (Gabapentin 300 Mg Capsule) 300 mg PO BEDTIME [facility] Last Admin: 05/05/24 21:01 Dose: 300 mg Documented By: AMILCAR Gabapentin (Gabapentin 100 Mg Capsule) 100 mg PO TID PRN PRN Reason: Anxiety Glucose (Glucose Gel 15 Gm Gel..Gram.) 15 gm PO Q15M PRN; Protocol PRN Reason: per Hypoglycemia Standing Ord. Heparin Sodium (Porcine) (Heparin Sodium,Porcine 5,000 Unit/Ml Vial) 5,000 unit SUBCUT Q8H [facility] Last Admin: 05/07/24 09:49 Dose: 5,000 unit Documented By: ANAT Dextrose (D10) 250 mls @ 750 mls/hr IV Q15M PRN; Protocol PRN Reason: per Hypoglycemia Standing Ord. Insulin Human Lispro (Insulin Lispro 100 Unit/Ml 3 Ml Vial) 0 unit SUBCUT Q6H [facility]; Protocol Last Admin: 05/07/24 12:19 Dose: Not Given Documented By: ANAT Non-Admin Reason: No Insulin Coverage Olanzapine (Olanzapine 10 Mg Tablet) 10 mg PO BEDTIME [facility] Last Admin: 05/05/24 21:00 Dose: 10 mg Documented By: AMILCAR Sodium Chloride (0.9 % Sodium Chloride Flush 3 Ml Syringe) 3 ml IVFLUSH QSHIFT [facility] Last Admin: 05/07/24 09:49 Dose: 3 ml Documented By: ANAT Topiramate (Topiramate 25 Mg Tablet) 50 mg PO BID [facility] Last Admin: 05/07/24 09:48 Dose: 50 mg Documented By: NAAT Labs 05/04/24 04:53 05/04/24 04:53 Labs: Laboratory Results - last 24 hr 05/06/24 05/06/24 05/06/24 15:35 16:55 23:43 POC Glucose 115 178 H COVID-19 (MICHELLE) Negative COVID-19 Clin Com See Note 05/07/24 05/07/24 06:14 11:32 POC Glucose 115 100 COVID-19 (MICHELLE) COVID-19 Clin Com Assessment and Plan (1) Left-sided weakness: Status: Acute Plan 74 y/o man admitted with: Left-sided weakness: Aspiration and fall precautions. Neuro checks echo: - 1. Low normal LV ejection fraction 50-55% with mild LVH with impaired relaxation filling pattern 2. Trivial aortic regurgitation with mild calcific aortic valve and mitral valve changes noted 3. Normal measured RV systolic pressure Continue aspirin and atorvastatin (increased from 40 mg PO to 80 mg PO at bedtime). Neurology consult- Continue aspirin 81 mg a day. MRI limited -no acute large infarct. Continue his parkinsonian medications. d/w neuro-continue asa/statin, mri as above neg abnormal EEG-d/w neurology : added rosenda OT/PT swallow/speech evaluation Type 2 diabetes mellitus. Metformin on hold (recent administration of IV contrast) fs with Insulin sliding scale , hold coverage below 200 mg/dl Essential hypertension. Continue lisinopril. Hyperlipidemia. Continue statin. Parkinson's disease. Continue carbidopa-levodopa. BPH. Continue terazosin and finasteride. Mood disorder. Continue mirtazapine, Depakote, gabapentin, citalopram. Zyprexa and Topamax. ativan stopped and gabapentine adjusted ( as per pediatric acute care unit nurse he does not take ativan)-also patient gets sleepy with ativan transient low bp : likely sec to npo/htn meds impproved with ivf added d5ns no sepsis moniter bp closely Dvt prophylax: Heparin ongoing hospitalization for suspected stroke management and treatment- awaiting placement /alf , alf currently making arrangements. Quality Stroke Does the patient have a stroke diagnosis?: No Reason for No Anti-thrombotic by Day Two: Not indicated (Unclear) VTE Prior VTE?: No VTE Risk Level:: Medical - moderate - high VTE Device Contraindication: Treatment Not Indicated VTE Drug Contraindication: N/A - Med Ordered
[2024-05-07 16:36] LABS: Glucose, Whole Blood 102 mg/dL (60-115)
[2024-05-07] MEDS: levETIRAcetam Oral Soln 500 MG/5 ML PO (22:31)
[2024-05-07] MEDS: Doxazosin Mesylate 2 MG TABLET 8 MG PO (22:31)
[2024-05-07] MEDS: Atorvastatin Calcium 40 MG TABLET PO (22:33)
[2024-05-08] VITALS (7 sets, daily range): BP systolic 133–176; BP diastolic 72–88; PULSE 62–78; RESP 16–20; TEMP 36.2–36.7; O2SAT 96–100
[2024-05-08 00:12] LABS: Glucose, Whole Blood 115 mg/dL (60-115)
[2024-05-08] MEDS: Heparin Sodium,Porcine 5,000 UNIT/ML VIAL 5000 UNIT SUBCUT ×3 (01:55→17:47)
[2024-05-08 05:43] LABS: Glucose, Whole Blood 103 mg/dL (60-115)
[2024-05-08] MEDS: 0.9 % Sodium Chloride Flush 3 ML SYRINGE IVFLUSH ×3 (10:22→20:15)
[2024-05-08] MEDS: Finasteride 5 MG TABLET PO (10:24)
[2024-05-08] MEDS: levETIRAcetam Oral Soln 500 MG/5 ML PO ×2 (10:25→20:15)
[2024-05-08] MEDS: Divalproex Sodium Sprinkles 125 MG CAP.DR.SPR 500 MG PO ×2 (10:25→20:15)
[2024-05-08] MEDS: Topiramate 25 MG TABLET 50 MG PO ×2 (10:25→20:15)
[2024-05-08] MEDS: Doxycycline Monohydrate 100 MG CAPSULE PO ×2 (10:26→20:15)
[2024-05-08] MEDS: Aspirin 81 MG TAB.CHEW PO (10:26)
[2024-05-08] MEDS: Carbidopa/Levodopa 25/100 TABLET 1.5 TAB PO ×4 (10:26→20:14)
[2024-05-08] MEDS: Acetaminophen 325 MG TABLET 975 MG PO ×2 (10:48→20:14)
[2024-05-08 10:57] LABS: Glucose, Whole Blood 120 mg/dL (60-115)
[2024-05-08] MEDS: Escitalopram Oxalate 10 MG TABLET PO (11:00)
--- NOTE | 2024-05-08 13:42 | HO.PM.IMPN ---
Subjective Subjective Date of Service: 05/08/24 Interval History: left sided weakness Review of Systems no new overnight events seems more awake,no fevers Physical Exam Vital Signs: Vital Signs: Last Vital Signs Temp 98.0 F 05/08/24 10:59 Pulse 72 05/08/24 10:59 Resp 20 05/08/24 10:59 BP 149/83 H 05/08/24 11:18 Pulse Ox 98 05/08/24 10:59 O2 Del Method Room Air 05/08/24 10:59 O2 Flow Rate 2 05/06/24 07:01 FiO2 98 05/06/24 00:19 BMI result Body Mass Index 22.5 Appearance: more awake? cvs: rrr, [id number] . res: clear to auscultation ,no rhonchii or wheezing abd: no rebound or guarding ,nt, bs present. ext pulses present , no cyanosis . neuro: left sided weakness , moves all ext Objective Data Active Medications Acetaminophen (Acetaminophen 325 Mg Tablet) 975 mg PO Q6H PRN PRN Reason: Pain, Mild (Pain Scale 1-3), fever or headache Last Admin: 05/08/24 10:48 Dose: 975 mg Documented By: KENDELL Aspirin (Aspirin 81 Mg Tab.Chew) 81 mg PO DAILY [facility] Last Admin: 05/08/24 10:26 Dose: 81 mg Documented By: KENDELL Atorvastatin Calcium (Atorvastatin Calcium 40 Mg Tablet) 40 mg PO BEDTIME [facility] Last Admin: 05/07/24 22:33 Dose: 40 mg Documented By: MARYLOU Calcium Carbonate (Calcium Carbonate 750 Mg Tab.Chew) 750 mg PO Q4H PRN PRN Reason: Heartburn Carbidopa/Levodopa (Carbidopa/Levodopa 25/100 Tablet) 1.5 tab PO QID [facility] Last Admin: 05/08/24 10:26 Dose: 1.5 tab Documented By: KENDELL Divalproex Sodium (Divalproex Sodium Sprinkles 125 Mg ) 500 mg PO BID [facility] Last Admin: 05/08/24 10:25 Dose: 500 mg Documented By: KENDELL Doxazosin Mesylate (Doxazosin Mesylate 2 Mg Tablet) 8 mg PO BEDTIME [facility] Last Admin: 05/07/24 22:31 Dose: 8 mg Documented By: MARYLOU Doxycycline Monohydrate (Doxycycline Monohydrate 100 Mg Capsule) 100 mg PO BID [facility] Last Admin: 05/08/24 10:26 Dose: 100 mg Documented By: KENDELL Escitalopram Oxalate (Escitalopram Oxalate 10 Mg Tablet) 10 mg PO DAILY [facility] Last Admin: 05/08/24 11:00 Dose: 10 mg Documented By: KENDELL Finasteride (Finasteride 5 Mg Tablet) 5 mg PO DAILY [facility] Last Admin: 05/08/24 10:24 Dose: 5 mg Documented By: KENDELL Gabapentin (Gabapentin 300 Mg Capsule) 300 mg PO BEDTIME [facility] Last Admin: 05/05/24 21:01 Dose: 300 mg Documented By: AMILCAR Gabapentin (Gabapentin 100 Mg Capsule) 100 mg PO TID PRN PRN Reason: Anxiety Glucose (Glucose Gel 15 Gm Gel..Gram.) 15 gm PO Q15M PRN; Protocol PRN Reason: per Hypoglycemia Standing Ord. Heparin Sodium (Porcine) (Heparin Sodium,Porcine 5,000 Unit/Ml Vial) 5,000 unit SUBCUT Q8H [facility] Last Admin: 05/08/24 10:24 Dose: 5,000 unit Documented By: KENDELL Dextrose (D10) 250 mls @ 750 mls/hr IV Q15M PRN; Protocol PRN Reason: per Hypoglycemia Standing Ord. Insulin Human Lispro (Insulin Lispro 100 Unit/Ml 3 Ml Vial) 0 unit SUBCUT Q6H [facility]; Protocol Last Admin: 05/08/24 11:21 Dose: Not Given Documented By: KENDELL Non-Admin Reason: No Insulin Coverage Levetiracetam (Levetiracetam Oral Soln 500 Mg/5 Ml) 500 mg PO BID [facility] Last Admin: 05/08/24 10:25 Dose: 500 mg Documented By: KENDELL Olanzapine (Olanzapine 10 Mg Tablet) 10 mg PO BEDTIME [facility] Last Admin: 05/05/24 21:00 Dose: 10 mg Documented By: AMILCAR Sodium Chloride (0.9 % Sodium Chloride Flush 3 Ml Syringe) 3 ml IVFLUSH QSHIFT [facility] Last Admin: 05/08/24 10:22 Dose: 3 ml Documented By: KENDELL Topiramate (Topiramate 25 Mg Tablet) 50 mg PO BID [facility] Last Admin: 05/08/24 10:25 Dose: 50 mg Documented By: KENDELL Labs 05/04/24 04:53 05/04/24 04:53 Labs: Laboratory Results - last 24 hr 05/07/24 05/08/24 05/08/24 16:19 00:08 05:39 POC Glucose 102 115 103 05/08/24 10:50 POC Glucose 120 H Assessment and Plan (1) Left-sided weakness: Status: Acute Plan 74 y/o man admitted with: Left-sided weakness: Aspiration and fall precautions. Neuro checks echo: - 1. Low normal LV ejection fraction 50-55% with mild LVH with impaired relaxation filling pattern 2. Trivial aortic regurgitation with mild calcific aortic valve and mitral valve changes noted 3. Normal measured RV systolic pressure Continue aspirin and atorvastatin (increased from 40 mg PO to 80 mg PO at bedtime). Neurology consult- Continue aspirin 81 mg a day. MRI limited -no acute large infarct. Continue his parkinsonian medications. d/w neuro-continue asa/statin, mri as above neg abnormal EEG-d/w neurology : added rosenda OT/PT swallow/speech evaluation Type 2 diabetes mellitus. Metformin on hold (recent administration of IV contrast) fs with Insulin sliding scale , hold coverage below 200 mg/dl Essential hypertension. Continue lisinopril. Hyperlipidemia. Continue statin. Parkinson's disease. Continue carbidopa-levodopa. BPH. Continue terazosin and finasteride. Mood disorder. Continue mirtazapine, Depakote, gabapentin, citalopram. Zyprexa and Topamax. ativan stopped and gabapentine adjusted ( as per hiv/aids care nurse he does not take ativan)-also patient gets sleepy with ativan transient low bp : likely sec to npo/htn meds impproved with ivf added d5ns no sepsis moniter bp closely Dvt prophylax: Heparin ongoing hospitalization for suspected stroke management and treatment- awaiting placement /[facility] . Quality Stroke Does the patient have a stroke diagnosis?: No Reason for No Anti-thrombotic by Day Two: Not indicated (Unclear) VTE Prior VTE?: No VTE Risk Level:: Medical - moderate - high VTE Device Contraindication: Treatment Not Indicated VTE Drug Contraindication: N/A - Med Ordered
[2024-05-08 16:16] LABS: Glucose, Whole Blood 125 mg/dL (60-115)
[2024-05-08] MEDS: Doxazosin Mesylate 2 MG TABLET 8 MG PO (20:15)
[2024-05-08] MEDS: Atorvastatin Calcium 40 MG TABLET PO (20:15)
[2024-05-08 21:16] LABS: Glucose, Whole Blood 127 mg/dL (60-115)
[2024-05-09] MEDS: Heparin Sodium,Porcine 5,000 UNIT/ML VIAL 5000 UNIT SUBCUT ×3 (01:46→17:50)
[2024-05-09 04:00] VITALS: BP 107/61; PULSE 68; RESP 18; TEMP 36.2; O2SAT 94
[2024-05-09 07:17] VITALS: BP 154/87; PULSE 76; RESP 20; TEMP 36.1; O2SAT 96
[2024-05-09 07:43] LABS: Glucose, Whole Blood 103 mg/dL (60-115)
[2024-05-09] MEDS: Finasteride 5 MG TABLET PO (10:13)
[2024-05-09] MEDS: Carbidopa/Levodopa 25/100 TABLET 1.5 TAB PO ×2 (10:13→13:06)
[2024-05-09] MEDS: Doxycycline Monohydrate 100 MG CAPSULE PO (10:14)
[2024-05-09] MEDS: Aspirin 81 MG TAB.CHEW PO (10:14)
[2024-05-09] MEDS: levETIRAcetam Oral Soln 500 MG/5 ML PO (10:14)
[2024-05-09] MEDS: Divalproex Sodium Sprinkles 125 MG CAP.DR.SPR 500 MG PO (10:14)
[2024-05-09] MEDS: Escitalopram Oxalate 10 MG TABLET PO (10:14)
[2024-05-09] MEDS: Topiramate 25 MG TABLET 50 MG PO (10:14)
[2024-05-09] MEDS: 0.9 % Sodium Chloride Flush 3 ML SYRINGE IVFLUSH ×2 (10:15→17:59)
[2024-05-09 10:53] VITALS: BP 133/75; PULSE 75; RESP 20; TEMP 36.2; O2SAT 97
[2024-05-09 11:07] LABS: Glucose, Whole Blood 108 mg/dL (60-115)
--- NOTE | 2024-05-09 11:26 | P.PNIM_ITS ---
Subjective Subjective Date of Service: 05/09/24 Interval History: left sided weakness Review of Systems no new events seems similar Physical Exam 2 Vital Signs: Vital Signs: Last Vital Signs Temp 97.2 F 05/09/24 10:53 Pulse 75 05/09/24 10:53 Resp 20 05/09/24 10:53 BP 133/75 05/09/24 10:53 Pulse Ox 97 05/09/24 10:53 O2 Del Method Room Air 05/09/24 10:53 O2 Flow Rate 2 05/06/24 07:01 FiO2 98 05/06/24 00:19 BMI result Body Mass Index 22.5 Appearance: more awake? cvs: rrr, [id number] . res: clear to auscultation ,no rhonchii or wheezing abd: no rebound or guarding ,nt, bs present. ext pulses present , no cyanosis . neuro: left sided weakness , moves all ext Objective Data Active Medications Acetaminophen (Acetaminophen 325 Mg Tablet) 975 mg PO Q6H PRN PRN Reason: Pain, Mild (Pain Scale 1-3), fever or headache Last Admin: 05/08/24 20:14 Dose: 975 mg Documented By: MARYLOU Aspirin (Aspirin 81 Mg Tab.Chew) 81 mg PO DAILY [facility] Last Admin: 05/09/24 10:14 Dose: 81 mg Documented By: THEA Atorvastatin Calcium (Atorvastatin Calcium 40 Mg Tablet) 40 mg PO BEDTIME [facility] Last Admin: 05/08/24 20:15 Dose: 40 mg Documented By: MARYLOU Calcium Carbonate (Calcium Carbonate 750 Mg Tab.Chew) 750 mg PO Q4H PRN PRN Reason: Heartburn Carbidopa/Levodopa (Carbidopa/Levodopa 25/100 Tablet) 1.5 tab PO QID [facility] Last Admin: 05/09/24 10:13 Dose: 1.5 tab Documented By: THEA Divalproex Sodium (Divalproex Sodium Sprinkles 125 Mg ) 500 mg PO BID [facility] Last Admin: 05/09/24 10:14 Dose: 500 mg Documented By: THEA Doxazosin Mesylate (Doxazosin Mesylate 2 Mg Tablet) 8 mg PO BEDTIME [facility] Last Admin: 05/08/24 20:15 Dose: 8 mg Documented By: HO.[email or web address] Doxycycline Monohydrate (Doxycycline Monohydrate 100 Mg Capsule) 100 mg PO BID [facility] Last Admin: 05/09/24 10:14 Dose: 100 mg Documented By: THEA Escitalopram Oxalate (Escitalopram Oxalate 10 Mg Tablet) 10 mg PO DAILY [facility] Last Admin: 05/09/24 10:14 Dose: 10 mg Documented By: THEA Finasteride (Finasteride 5 Mg Tablet) 5 mg PO DAILY [facility] Last Admin: 05/09/24 10:13 Dose: 5 mg Documented By: THEA Gabapentin (Gabapentin 300 Mg Capsule) 300 mg PO BEDTIME [facility] Last Admin: 05/05/24 21:01 Dose: 300 mg Documented By: AMILCAR Gabapentin (Gabapentin 100 Mg Capsule) 100 mg PO TID PRN PRN Reason: Anxiety Glucose (Glucose Gel 15 Gm Gel..Gram.) 15 gm PO Q15M PRN; Protocol PRN Reason: per Hypoglycemia Standing Ord. Heparin Sodium (Porcine) (Heparin Sodium,Porcine 5,000 Unit/Ml Vial) 5,000 unit SUBCUT Q8H [facility] Last Admin: 05/09/24 10:30 Dose: 5,000 unit Documented By: THEA Dextrose (D10) 250 mls @ 750 mls/hr IV Q15M PRN; Protocol PRN Reason: per Hypoglycemia Standing Ord. Insulin Human Lispro (Insulin Lispro 100 Unit/Ml 3 Ml Vial) 0 unit SUBCUT QIDACHS [facility]; Protocol Last Admin: 05/09/24 08:31 Dose: Not Given Documented By: THEA Non-Admin Reason: No Insulin Coverage Levetiracetam (Levetiracetam Oral Soln 500 Mg/5 Ml) 500 mg PO BID [facility] Last Admin: 05/09/24 10:14 Dose: 500 mg Documented By: THEA Olanzapine (Olanzapine 10 Mg Tablet) 10 mg PO BEDTIME [facility] Last Admin: 05/05/24 21:00 Dose: 10 mg Documented By: AMILCAR Sodium Chloride (0.9 % Sodium Chloride Flush 3 Ml Syringe) 3 ml IVFLUSH QSHIFT [facility] Last Admin: 05/09/24 10:15 Dose: 3 ml Documented By: THEA Topiramate (Topiramate 25 Mg Tablet) 50 mg PO BID [facility] Last Admin: 05/09/24 10:14 Dose: 50 mg Documented By: THEA Labs 05/04/24 04:53 05/04/24 04:53 Labs: Laboratory Results - last 24 hr 05/08/24 05/08/24 05/09/24 16:09 21:10 07:22 POC Glucose 125 H 127 H 103 05/09/24 10:54 POC Glucose 108 Assessment and Plan (1) Left-sided weakness: Status: Acute Assessment and Plan: 74 y/o man admitted with: Left-sided weakness: Aspiration and fall precautions. Neuro checks echo: - 1. Low normal LV ejection fraction 50-55% with mild LVH with impaired relaxation filling pattern 2. Trivial aortic regurgitation with mild calcific aortic valve and mitral valve changes noted 3. Normal measured RV systolic pressure Continue aspirin and atorvastatin (increased from 40 mg PO to 80 mg PO at bedtime). Neurology consult- Continue aspirin 81 mg a day. MRI limited -no acute large infarct. Continue his parkinsonian medications. d/w neuro-continue asa/statin, mri as above neg abnormal EEG-d/w neurology : added rosenda OT/PT swallow/speech evaluation Type 2 diabetes mellitus. Metformin on hold (recent administration of IV contrast) fs with Insulin sliding scale , hold coverage below 200 mg/dl Essential hypertension. Continue lisinopril. Hyperlipidemia. Continue statin. Parkinson's disease. Continue carbidopa-levodopa. BPH. Continue terazosin and finasteride. Mood disorder. Continue mirtazapine, Depakote, gabapentin, citalopram. Zyprexa and Topamax. ativan stopped and gabapentine adjusted ( as per care tech he does not take ativan)-also patient gets sleepy with ativan transient low bp : improved moniter bp,intrroduce bp meds. Dvt prophylax: Heparin ongoing hospitalization for suspected stroke management and treatment- awaiting placement /grou Quality Stroke Does the patient have a stroke diagnosis?: No Reason for No Anti-thrombotic by Day Two: Not indicated (Unclear) VTE Prior VTE?: No VTE Risk Level:: Medical - moderate - high VTE Device Contraindication: Treatment Not Indicated VTE Drug Contraindication: N/A - Med Ordered
[2024-05-09 16:00] VITALS: BP 143/82; PULSE 88; RESP 18; TEMP 36.3; O2SAT 98
[2024-05-09 16:11] LABS: Glucose, Whole Blood 122 mg/dL (60-115)
[2024-05-09] MEDS: Dextrose 5 % and 0.9 % NaCl 1,000 ML 70 ML IVCONT (17:52)
--- NOTE | 2024-05-09 18:43 | PC.NURSE ---
This RN called into pt room by retirement aide while pt eating dinner. Per aide, pt having difficulty with meal . Pt observed to be coughing while eating/drinking. Pt observed to have wet, productive cough. Pt assessed and lung sounds noted to be wet/coarse crackles in upper lobes. O2 sat WNL. No signs of respiratory distress at this time. This RN downgraded pt to NPO. made aware. New orders recieved for D5NS @ 70 ml/hr and speech consult. No other concerns at this time.
[2024-05-09 19:33] VITALS: BP 145/78; PULSE 83; RESP 20; TEMP 36.6; O2SAT 98
[2024-05-10] VITALS (7 sets, daily range): BP systolic 110–144; BP diastolic 67–89; PULSE 63–79; RESP 16–20; TEMP 35.8–36.3; O2SAT 94–98
[2024-05-10 00:09] LABS: Glucose, Whole Blood 112 mg/dL (60-115)
[2024-05-10] MEDS: Heparin Sodium,Porcine 5,000 UNIT/ML VIAL 5000 UNIT SUBCUT ×3 (01:20→17:05)
[2024-05-10 07:23] LABS: Glucose, Whole Blood 101 mg/dL (60-115)
[2024-05-10] MEDS: Dextrose 5 % and 0.9 % NaCl 1,000 ML 70 ML IVCONT (08:29)
--- NOTE | 2024-05-10 10:41 | MHC.CM.PN ---
Per ROUNDS discussion, Patient is medically cleared for dc back to his [facility]. Nursing Home Nurse/Arminda is asking to speak with MD to understand Patent's readiness to return/dc (NPO, IVF's, new seizure med, results of EEG); MD is aware of Arminda's request. EEG report has been faxed to Arminda @ [phone] and today's PASTRY ARTIST PN will be sent once it is available. CM was informed that a family member is in the Patient's room, requesting to speak with MD; MD is aware.CM Management is aware.
[2024-05-10 11:18] LABS: Glucose, Whole Blood 119 mg/dL (60-115)
--- NOTE | 2024-05-10 13:19 | HO.PM.IMPN ---
Subjective Subjective Date of Service: 05/10/24 Interval History: left sided weakness Review of Systems no new events seems similar Physical Exam Vital Signs: Vital Signs: Last Vital Signs Temp 96.9 F 05/10/24 11:04 Pulse 74 05/10/24 11:04 Resp 17 05/10/24 11:04 BP 138/89 05/10/24 11:04 Pulse Ox 94 05/10/24 11:04 O2 Del Method Room Air 05/10/24 11:04 O2 Flow Rate 2 05/06/24 07:01 FiO2 98 05/06/24 00:19 BMI result Body Mass Index 22.5 Appearance: more awake? cvs: rrr, [id number] . res: clear to auscultation ,no rhonchii or wheezing abd: no rebound or guarding ,nt, bs present. ext pulses present , no cyanosis . neuro: left sided weakness , moves all ext Objective Data Active Medications Acetaminophen (Acetaminophen 325 Mg Tablet) 975 mg PO Q6H PRN PRN Reason: Pain, Mild (Pain Scale 1-3), fever or headache Last Admin: 05/08/24 20:14 Dose: 975 mg Documented By: MARYLOU Aspirin (Aspirin 81 Mg Tab.Chew) 81 mg PO DAILY [facility] Last Admin: 05/10/24 08:25 Dose: Not Given Documented By: ANA Non-Admin Reason: NPO Atorvastatin Calcium (Atorvastatin Calcium 40 Mg Tablet) 40 mg PO BEDTIME [facility] Last Admin: 05/10/24 00:08 Dose: Not Given Documented By: AMILCAR Non-Admin Reason: NPO Calcium Carbonate (Calcium Carbonate 750 Mg Tab.Chew) 750 mg PO Q4H PRN PRN Reason: Heartburn Carbidopa/Levodopa (Carbidopa/Levodopa 25/100 Tablet) 1.5 tab PO QID [facility] Last Admin: 05/10/24 11:26 Dose: Not Given Documented By: ANA Non-Admin Reason: NPO Divalproex Sodium (Divalproex Sodium Sprinkles 125 Mg ) 500 mg PO BID [facility] Last Admin: 05/10/24 08:25 Dose: Not Given Documented By: ANA Non-Admin Reason: NPO Doxazosin Mesylate (Doxazosin Mesylate 2 Mg Tablet) 8 mg PO BEDTIME [facility] Last Admin: 05/10/24 00:08 Dose: Not Given Documented By: AMILCAR Non-Admin Reason: NPO Doxycycline Monohydrate (Doxycycline Monohydrate 100 Mg Capsule) 100 mg PO BID [facility] Last Admin: 05/10/24 08:25 Dose: Not Given Documented By: ANA Non-Admin Reason: NPO Escitalopram Oxalate (Escitalopram Oxalate 10 Mg Tablet) 10 mg PO DAILY [facility] Last Admin: 05/10/24 08:25 Dose: Not Given Documented By: ANA Non-Admin Reason: NPO Finasteride (Finasteride 5 Mg Tablet) 5 mg PO DAILY [facility] Last Admin: 05/10/24 08:25 Dose: Not Given Documented By: ANA Non-Admin Reason: NPO Gabapentin (Gabapentin 300 Mg Capsule) 300 mg PO BEDTIME [facility] Last Admin: 05/05/24 21:01 Dose: 300 mg Documented By: AMILCAR Gabapentin (Gabapentin 100 Mg Capsule) 100 mg PO TID PRN PRN Reason: Anxiety Glucose (Glucose Gel 15 Gm Gel..Gram.) 15 gm PO Q15M PRN; Protocol PRN Reason: per Hypoglycemia Standing Ord. Heparin Sodium (Porcine) (Heparin Sodium,Porcine 5,000 Unit/Ml Vial) 5,000 unit SUBCUT Q8H [facility] Last Admin: 05/10/24 08:29 Dose: 5,000 unit Documented By: ANA Dextrose (D10) 250 mls @ 750 mls/hr IV Q15M PRN; Protocol PRN Reason: per Hypoglycemia Standing Ord. Insulin Human Lispro (Insulin Lispro 100 Unit/Ml 3 Ml Vial) 0 unit SUBCUT QIDACHS [facility]; Protocol Last Admin: 05/10/24 11:26 Dose: Not Given Documented By: ANA Non-Admin Reason: No Insulin Coverage Levetiracetam (Levetiracetam Oral Soln 500 Mg/5 Ml) 500 mg PO BID [facility] Last Admin: 05/10/24 08:25 Dose: Not Given Documented By: ANA Non-Admin Reason: NPO Olanzapine (Olanzapine 10 Mg Tablet) 10 mg PO BEDTIME [facility] Last Admin: 05/05/24 21:00 Dose: 10 mg Documented By: AMILCAR Sodium Chloride (0.9 % Sodium Chloride Flush 3 Ml Syringe) 3 ml IVFLUSH QSHIFT [facility] Last Admin: 05/10/24 08:25 Dose: Not Given Documented By: ANA Non-Admin Reason: IV Running Topiramate (Topiramate 25 Mg Tablet) 50 mg PO BID [facility] Last Admin: 05/10/24 08:26 Dose: Not Given Documented By: ANA Non-Admin Reason: NPO Labs 05/04/24 04:53 05/04/24 04:53 Labs: Laboratory Results - last 24 hr 05/09/24 05/09/24 05/10/24 16:01 20:19 07:07 POC Glucose 122 H 112 101 05/10/24 11:06 POC Glucose 119 H Assessment and Plan (1) Left-sided weakness: Status: Acute Assessment and Plan: 74 y/o man admitted with: Left-sided weakness: Aspiration and fall precautions. Neuro checks echo: - 1. Low normal LV ejection fraction 50-55% with mild LVH with impaired relaxation filling pattern 2. Trivial aortic regurgitation with mild calcific aortic valve and mitral valve changes noted 3. Normal measured RV systolic pressure Continue aspirin and atorvastatin (increased from 40 mg PO to 80 mg PO at bedtime). Neurology consult- Continue aspirin 81 mg a day. MRI limited -no acute large infarct. Continue his parkinsonian medications. d/w neuro-continue asa/statin, mri as above neg abnormal EEG-report pending ,add keppra. swallow/speech evaluation -diet updated. d/w neuro -added bmp, neurology followup and eeg report pending Type 2 diabetes mellitus. Metformin on hold (recent administration of IV contrast) fs with Insulin sliding scale , hold coverage below 200 mg/dl Essential hypertension. Continue lisinopril. Hyperlipidemia. Continue statin. Parkinson's disease. Continue carbidopa-levodopa. BPH. Continue terazosin and finasteride. Mood disorder. Continue mirtazapine, Depakote, gabapentin, citalopram. Zyprexa and Topamax. ativan stopped and gabapentine adjusted ( as per care technician he does not take ativan)-also patient gets sleepy with ativan transient low bp : improved moniter bp,intrroduce bp meds. Dvt prophylax: Heparin ongoing hospitalization for suspected stroke management and treatment- awaiting placement ,retirement requested updated neuro note,pt before planning Quality Stroke Does the patient have a stroke diagnosis?: No Reason for No Anti-thrombotic by Day Two: Not indicated (Unclear) VTE Prior VTE?: No VTE Risk Level:: Medical - moderate - high VTE Device Contraindication: Treatment Not Indicated VTE Drug Contraindication: N/A - Med Ordered
--- NOTE | 2024-05-10 13:33 | MHC.CM.PN ---
Nurse is requesting PT to see Patient prior to return to ; MD is aware.
--- NOTE | 2024-05-10 15:51 | MHC.CM.PN ---
EEG report has been signed and a copy has been given to Custodial staff in Patient's room. PT is presently in the room, working with Patient, per Nurse/Arminda's request. CM will follow.
--- NOTE | 2024-05-10 16:06 | MHC.CM.PN ---
PT has verbally recommended home PT ; CM has left a detailed message for Senior Living Nurse Arminda @ [phone], requesting which VNA should be used. CM will follow.
[2024-05-10 16:11] LABS: Glucose, Whole Blood 155 mg/dL (60-115)
[2024-05-10] MEDS: Carbidopa/Levodopa 25/100 TABLET 1.5 TAB PO ×2 (17:03→20:34)
[2024-05-10] MEDS: 0.9 % Sodium Chloride Flush 3 ML SYRINGE IVFLUSH (17:05)
[2024-05-10 17:06] LABS: Alanine Aminotransferase 45 U/L (0-40); Albumin Level 3.6 g/dL (3.5-5.0); Alkaline Phosphatase 79 U/L (39-117); Anion Gap 11 (12-20); Aspartate Amino Transferase 34 U/L (5-37); Bilirubin Direct 0.1 mg/dL (0.0-0.5); Bilirubin Total 0.4 mg/dL (0.0-1.0); Blood Urea Nitrogen 13 mg/dL (9-16); Carbon Dioxide 24 mmol/L (22-29); Chloride 108 mmol/L (96-108); Creatinine Clr Calc Pharmacy 76.7; Estimated Glomerular Filt Rate > 60; Glucose Random 142 mg/dL (60-115); Potassium 4.1 mmol/L (3.3-5.1); Sodium 139 mmol/L (135-145); Total Protein 5.9 g/dL (6.5-8.0)
[2024-05-10] MEDS: Insulin Lispro 100 UNIT/ML 3 ML VIAL SUBCUT (17:11)
--- NOTE | 2024-05-10 17:26 | MHC.SL.SWA ---
Speech Pathologist Impression: Risk of aspiration, oropharyngeal dysphagia Dysphasia Diet Status: Continue with GROUND SOLIDS and UPGRADE to NECTAR THICK liquids (via teaspoon or individual sips by CONTROLLED cup) and pills CRUSHED in PUREE. Patient requires 1-1 feed and cues to double swallow. May consider administration of empty spoon between bites to elicit swallow. Slow rate of PO administration. Intermittent oral check for pocketed food. [facility] requesting MBSS. Pt has hx for dysphagia w/ last MBSS in November 2022. Pt would benefit from repeat MBSS (inpatient vs. outpatient) when appropriate. If it can't be done during patient's hospitalization, recommend exam on outpatient basis. [facility]entiary staff reports pt's speech consistent w/ baseline speech. Liquid Consistency and Strategies for Safe Swallow: Liquid Intake Recommendation: [place] Thick Liquid Intake Strategies: Small Sips No Straws Solid Food Consistency: Dietary Recommendations: Grnd/Mech Altered (NDD2) Oral Medication Intake: Crushed with Puree Please contact the pharmacy regarding appropriate crushable or liquid drug formulations that are available whenever modified delivery is recommended. Compensatory Strategies and Precautions to be Taken for Safe Swallow: Sitting Upright (90 deg) Double Swallow No Straw Small Bites and Sips Alternate Liquids/Solids Rate of Ingestion Change Oral Check Avoid Specific Foods Supervision While Eating and Drinking for Safe Swallow: Total Assistance (1:1) Foods to Avoid: Hard, tough to chew solids; mixed consistencies Swallowing Recommended Treatments: Compens. Strategy Educat. Recommendation for Speech: Inpatient Speech Therapy Comment: Recommend start diet of GROUND/MECH ALTERED SOLID (NDD2) with NECTAR-THICK LIQUIDS. MEDS WHOLE with PUREE. Pt is a 1:1 FEED. Further Speech & Language assessment is warrented if symptoms do not resolve during his inpatient stay. Frequency/Duration: Daily Date Range for Service Req: Admission - Discharge Timeline to reassess: PRN Visual And Stock Associate Clinican/Clinical Fellow: No Supervisory Statement: I have reviewed and agree with the student/clinical fellow's documentation: N/A Speech Language Pathologist: Padmaja Benjamin M.A., CCC-BREAD ICER
[2024-05-10] MEDS: Doxazosin Mesylate 2 MG TABLET 8 MG PO (20:34)
[2024-05-10] MEDS: levETIRAcetam Oral Soln 500 MG/5 ML PO (20:34)
[2024-05-10] MEDS: Atorvastatin Calcium 40 MG TABLET PO (20:35)
[2024-05-10] MEDS: Doxycycline Monohydrate 100 MG CAPSULE PO (20:35)
[2024-05-10] MEDS: Divalproex Sodium Sprinkles 125 MG CAP.DR.SPR 500 MG PO (20:35)
[2024-05-10] MEDS: Topiramate 25 MG TABLET 50 MG PO (20:35)
[2024-05-10 20:49] LABS: Glucose, Whole Blood 124 mg/dL (60-115)
[2024-05-11] MEDS: Heparin Sodium,Porcine 5,000 UNIT/ML VIAL 5000 UNIT SUBCUT ×2 (00:27→09:49)
[2024-05-11] MEDS: 0.9 % Sodium Chloride Flush 3 ML SYRINGE IVFLUSH ×2 (00:28→09:48)
[2024-05-11 03:18] VITALS: BP 119/77; PULSE 75; RESP 20; TEMP 36.4; O2SAT 98
[2024-05-11 07:51] VITALS: BP 143/76; PULSE 56; RESP 17; TEMP 36.4; O2SAT 98
[2024-05-11 07:57] LABS: Glucose, Whole Blood 111 mg/dL (60-115)
--- NOTE | 2024-05-11 09:32 | MHC.CM.PN ---
Patient is active with [facility].
[2024-05-11] MEDS: Doxycycline Monohydrate 100 MG CAPSULE PO (09:47)
[2024-05-11] MEDS: Aspirin 81 MG TAB.CHEW PO (09:47)
[2024-05-11] MEDS: Divalproex Sodium Sprinkles 125 MG CAP.DR.SPR 500 MG PO (09:47)
[2024-05-11] MEDS: Escitalopram Oxalate 10 MG TABLET PO (09:47)
[2024-05-11] MEDS: Finasteride 5 MG TABLET PO (09:47)
[2024-05-11] MEDS: levETIRAcetam Oral Soln 500 MG/5 ML PO (09:47)
[2024-05-11] MEDS: Carbidopa/Levodopa 25/100 TABLET 1.5 TAB PO ×2 (09:48→12:48)
[2024-05-11] MEDS: Topiramate 25 MG TABLET 50 MG PO (09:48)
--- NOTE | 2024-05-11 10:24 | MHC.CM.PN ---
PT Eval and REHAB ASSISTANT PN have been sent to Nurse Arminda, who called CM this morning requesting an updated dc summary and ambulance transport to be arranged for 1PM today for Patient's return to the . Per MD in Rounds, Patient is medically cleared for dc, to return to the & resume [facility]. [facility] is arranged for strip picker today at 1PM. YENIFER spoke with Justo/Amrit @ [phone] and informed him of the dc plan and addressed IMM with him.
--- NOTE | 2024-05-11 10:40 | P.DS_ITS ---
DS: Providers Provider Date of Service: 05/11/24 Date of admission: 05/03/24 22:41 Date of discharge: 05/11/24 Primary care physician: Claire Bender MD Consults: 05/03/24 22:45 Consult to Neurology Routine Consulting Provider: Naye Chavis Reason for consultation: Dysarthria, right-sided weakness, neglecting right side Has provider been notified: No DS: Diagnosis Discharge Diagnosis (1) Left-sided weakness: Status: Acute DS: Summary Hospital Course Hospital Course: 74 years old man with past medical history significant for mental disability, schizophrenia, stroke, type 2 diabetes mellitus on metformin, Parkinson's disease, essential hypertension and hyperlipidemia was brought to the emergency department via EMS after he was noted to have speech difficulty and left-sided weakness. These were noted at 1:30 PM. The patient also complained of left- sided headache. No other symptoms reported such as nausea, vomiting, diarrhea, fever or chills. HPI was mostly provided by detention staff (at bedside and another member was on the phone). No seizure activity was observed. In the ED, he was found to have stable vital signs. Blood workup including CBC, CMP and troponin are unremarkable. INR is normal. Urinalysis normal. Head CT scan without contrast showed no convincing evidence of acute intracranial hemorrhage or infarction, however, the study is limited due to extensive motion artifact and beam hardening artifact. Head and neck CTA showed no large vessel occlusion, saccular aneurysm or dissection. ED tx: Morphine 4 mg IV, acetaminophen 975 mg PO, aspirin 243 mg PO. tPA not given. Hospital course: patient came to hospital- Because of left-sided weakness,speech difficulty: Patient was on aspirin, statin 40 mg bedtime, CTA head and MRI(limited) was done-negative for acute stroke. Seen by Neurology and imaging was discussed- initially thought to have possible right him hemispheric infarct but since imaging negative, CVA is less likely. Possible the patient underlying baseline dementia, Parkinson tremor might be contributing, EEg -also done seems abnormal,neuro recomended keppra 500 mg po bid for possble seizure- Recommended to continue currently aspirin statin, patient was monitored -seems improving ,moves all extermities ,also more awake ,alert , no active seizure noted. Patient is Ativan discontinued causes sleepiness, also confirmed with the [place] [facility] patient is not taking Ativan. Also patient takes gabapentin 100 mg t.i.d. p.r.n. ,consider adjusting mood medications outpatient to avoid sedation. Also patient had transient episode of low blood pressure: Secondary to low p.o. intake and blood pressure medication-patient was given fluids and patient is taking p.o. better- blood pressure seems to be improved, resume lisinopril. diabetes : fs seems mostly in 100-120 range , hold lantus ,moniter fs ,reintroduce if needed outpatient . plan: continue asa/statin .Add Keppra 500 mg PO BID moniter cmp and lipid panel in 1 week. consider neurology follow up outpatient . diabetes : fs seems mostly in 100-120 range , hold lantus ,moniter fs ,reintroduce if needed outpatient . d/w guardian and [facility] in detail, total time spent 40 min. Time Attestation Discharge Coordination Time (in mins): 35 Quality: Safe Use of Opioids Does Pt have an Active Cancer Diagnosis on the Problem List?: No Quality: Stroke Does the patient have a stroke diagnosis?: No Physical Exam Vital Signs: Vital Signs: Last Vital Signs Temp 97.5 F 05/11/24 07:51 Pulse 56 05/11/24 07:51 Resp 17 05/11/24 07:51 BP 143/76 H 05/11/24 07:51 Pulse Ox 98 05/11/24 07:51 O2 Del Method Room Air 05/11/24 07:51 O2 Flow Rate 2 05/06/24 07:01 FiO2 98 05/06/24 00:19 BMI result Body Mass Index 22.5 Const: Other: Awake nonverbal Resp: Other: Clear to auscultation bilaterally no rales rhonchi or wheezes Cardio: Other: No S4; positive S1-S2; S3 murmurs rubs or gallops GI: Other: Soft nontender nondistended normoactive bowel sounds Extrem: Other: No edema bilaterally DS: Data Data Completed and Pending Labs on day of discharge: Laboratory Results - last 24 hr 05/10/24 05/10/24 05/10/24 11:06 16:04 16:26 Sodium 139 Potassium 4.1 Chloride 108 Carbon Dioxide 24 Anion Gap 11 L BUN 13 Creatinine 0.79 Estim Creat Clear Calc 76.7 Estimated GFR > 60 POC Glucose 119 H 155 H Random Glucose 142 H Calcium 9.0 Total Bilirubin 0.4 Direct Bilirubin 0.1 AST 34 ALT 45 H Alkaline Phosphatase 79 Total Protein 5.9 L Albumin 3.6 05/10/24 05/11/24 20:35 07:48 Sodium Potassium Chloride Carbon Dioxide Anion Gap BUN Creatinine Estim Creat Clear Calc Estimated GFR POC Glucose 124 H 111 Random Glucose Calcium Total Bilirubin Direct Bilirubin AST ALT Alkaline Phosphatase Total Protein Albumin Discharge Plan Discharge Anticipated Discharge Date/Time: 05/07/24 14:51 Patient Disposition: Home Health Service Discharge Diagnosis: left sided weakness ,speech abnormality Referrals: [facility] [Outside] - 1 Week [facility],Claire Christianson MD [Primary Care Provider] - 1 Week Discharge Medications: New levetiracetam [Keppra] 500 mg tablet 500 mg PO BID Qty: 60 0RF Continued mirtazapine 15 mg tablet,disintegrating 15 mg PO BEDTIME 90 Days Qty: 90 2RF (DME) THICK IT See Rx Instructions .Route .MEDSUPPLY Qty: 1 0RF Rx Instructions: As directed (DME) PRODIGY LANCET See Rx Instructions .Route .MEDSUPPLY Qty: 100 12RF Rx Instructions: As directed divalproex 125 mg capsule, delayed rel sprinkle 500 mg PO BID 90 Days Qty: 720 2RF metformin 1,000 mg tablet 1,000 mg PO BID Qty: 180 3RF topiramate [Topamax] 50 mg tablet 50 mg PO BID 90 Days Qty: 180 2RF Rx Instructions: crush and mix with soft foods (DME) Prodigy No Coding Strip See Rx Instructions .Route Qty: 100 6RF Rx Instructions: Test 3 times daily lisinopril 10 mg tablet 10 mg PO DAILY Qty: 30 0RF (DME) ROHO CUSHION See Rx Instructions .Route .MEDSUPPLY Qty: 1 0RF Rx Instructions: As directed (DME) SHOWER/COMMODE CHAIR ON WHEELS See Rx Instructions .Route .MEDSUPPLY Qty: 1 0RF Rx Instructions: As directed (DME) WHEELCHAIR WITH CLIPBELT CLAMP HOOKS OR TIE DOWN See Rx Instructions .Route .MEDSUPPLY Qty: 1 0RF Rx Instructions: As directed escitalopram oxalate 5 mg/5 mL solution 10 mg PO DAILY gabapentin 300 mg Capsule 300 mg PO BEDTIME finasteride 5 mg tablet 5 mg PO DAILY atorvastatin 20 mg tablet 40 mg PO BEDTIME Rx Instructions: CRUSH AND GIVEN WITH SOFT FOOD (DME) compress.stocking,knee,reg,med Misc See Rx Instructions .Route Qty: 2 0RF Rx Instructions: As directed 20-30 mm HG olanzapine [Zyprexa] 10 mg tablet 10 mg PO BEDTIME (DME) BRIEF LArge See Rx Instructions .Route .MEDSUPPLY Qty: 100 11RF Rx Instructions: As directed aspirin [Aspirin Childrens] 81 mg tablet,chewable 81 mg PO DAILY Qty: 90 3RF (DME) lancets [Prodigy Twist Top Lancet] 28 gauge misc See Rx Instructions .ROUTE .MEDSUPPLY Qty: 100 Rx Instructions: As directed terazosin 10 mg capsule 10 mg PO BEDTIME 90 Days Qty: 90 3RF Rx Instructions: open capsule and mix with soft foods (DME) diaper,brief,adult,disposable Misc See Rx Instructions .ROUTE .MEDSUPPLY Qty: 120 11RF Rx Instructions: As directed - 4x a day Changed gabapentin 100 mg capsule 100 mg PO TID PRN (Reason: anxiety) Qty: 1 0RF carbidopa-levodopa 25-100 mg tablet 2 tab PO QID Qty: 168 1RF Rx Instructions: 37.5 - 150 mg to be taken 4 times a day Held insulin glargine [Basaglar KwikPen U-100 Insulin] 100 unit/mL (3 mL) insulin pen 4 unit subcut DAILY Hold Instructions: Resume on 05/10/24. Discontinued lorazepam 0.5 mg tablet 2.5 mg PO BID PRN (Reason: Agitation) Discharge Orders: Discharge Order (Routine); Ordered 05/11/24 Ordered By: Juan Diego Andrade Diet: Advance to usual diet Activity on Discharge: As tolerated Stand Alone Forms: Patient Portal Discharge page Print Language: Bulgarian Care Plan Goals: patient came to hospital- Because of left-sided weakness,speech difficulty: Patient was on aspirin, statin, CTA head and MRI(limited) was done-negative for acute stroke. Seen by Neurology and imaging was discussed-initially thought to have possible right him hemispheric infarct but since imaging negative, CVA is less likely. Possible the patient underlying baseline dementia, Parkinson tremor might be contributing, EEg -also done seems abnormal,neuro recomended keppra 500 mg po bid - Recommended to continue currently aspirin statin, patient was monitored -seems improving ,moves all extermities ,also more awake ,alert . d/w guardian and [facility] in detail, consider neurology follow up outpatient . Health Concerns: as above. Plan of Treatment: as above. Assessment: as above.
[2024-05-11 11:22] LABS: Glucose, Whole Blood 116 mg/dL (60-115)
--- NOTE | 2024-05-11 11:47 | P.CNNE_ITS ---
History of Present Illness Data of Consult Service Date: 05/11/24 Primary Care Provider: Claire Bender MD [facility] Reason for consult: Encephalopathy 74 years old man with history of schizophrenia and probably secondary parkinsonism resident of residential facility was in hospital and I was asked to examine him before discharge. Because of persistent encephalopathy an EEG was done recently that was mildly abnormal and after that it was suggested to put him on antiepileptic at night notice that he is on Depakote. Review of Systems 2 Review of Systems: Could not be done with [facility] Past Medical History Medical History Buttock wound Nausea & vomiting Hospital discharge follow-up Confusion Urinary incontinence Weakness of both lower limbs Screening for eye condition Type 2 diabetes mellitus with hyperglycemia, without long-term current use of insulin Diabetes type 2, uncontrolled Unsteady gait Subungual hematoma of great toe Rash Bruising Annual physical exam Pedal edema Oropharyngeal dysphagia Occipital infarction Tubular adenoma of colon Type 2 diabetes mellitus with hyperglycemia Dysphagia Vitamin D deficiency Parkinson's disease Developmental delay, moderate Hypercholesteremia Gastroesophageal reflux disease Hypertension Metabolic encephalopathy Schizophrenia Depression BPH with obstruction/lower urinary tract symptoms Family History Family History Father Type II diabetes mellitus Mother Type II diabetes mellitus Surgical History Surgical History History of circumcision History of prostate surgery History of colonoscopy Social History Social History Household Members: Caregiver Housing: Assisted Living Facility Housing Other:: [facility] Do you presently have visiting nurse or other home services: Yes Alcohol intake: unknown Comment: caregiver in room Patient Tobacco Use Status: Never used Tobacco e-Cigarette/Vaping Use: Never Used Second Hand Smoke Exposure: No Advance Directives Date on File: 07/11/21 service: No Current occupational status: disabled Current occupational exposures/hazards: No Cognitive needs: Yes Hearing needs: No Vision needs: No Meds Allergies Allergy/AdvReac Type Severity Reaction Status Date / Time perfume Allergy Intermediate ITCHING Verified 05/03/24 14:49 Active Medications: Current Medications Acetaminophen (Acetaminophen 325 Mg Tablet) 975 mg PO Q6H PRN PRN Reason: Pain, Mild (Pain Scale 1-3), fever or headache Last Admin: 05/08/24 20:14 Dose: 975 mg Aspirin (Aspirin 81 Mg Tab.Chew) 81 mg PO DAILY [facility] Last Admin: 05/11/24 09:47 Dose: 81 mg Atorvastatin Calcium (Atorvastatin Calcium 40 Mg Tablet) 40 mg PO BEDTIME [facility] Last Admin: 05/10/24 20:35 Dose: 40 mg Calcium Carbonate (Calcium Carbonate 750 Mg Tab.Chew) 750 mg PO Q4H PRN PRN Reason: Heartburn Carbidopa/Levodopa (Carbidopa/Levodopa 25/100 Tablet) 1.5 tab PO QID [facility] Last Admin: 05/11/24 09:48 Dose: 1.5 tab Divalproex Sodium (Divalproex Sodium Sprinkles 125 Mg ) 500 mg PO BID [facility] Last Admin: 05/11/24 09:47 Dose: 500 mg Doxazosin Mesylate (Doxazosin Mesylate 2 Mg Tablet) 8 mg PO BEDTIME [facility] Last Admin: 05/10/24 20:34 Dose: 8 mg Doxycycline Monohydrate (Doxycycline Monohydrate 100 Mg Capsule) 100 mg PO BID [facility] Last Admin: 05/11/24 09:47 Dose: 100 mg Escitalopram Oxalate (Escitalopram Oxalate 10 Mg Tablet) 10 mg PO DAILY [facility] Last Admin: 05/11/24 09:47 Dose: 10 mg Finasteride (Finasteride 5 Mg Tablet) 5 mg PO DAILY [facility] Last Admin: 05/11/24 09:47 Dose: 5 mg Gabapentin (Gabapentin 300 Mg Capsule) 300 mg PO BEDTIME [facility] Last Admin: 05/05/24 21:01 Dose: 300 mg Gabapentin (Gabapentin 100 Mg Capsule) 100 mg PO TID PRN PRN Reason: Anxiety Glucose (Glucose Gel 15 Gm Gel..Gram.) 15 gm PO Q15M PRN; Protocol PRN Reason: per Hypoglycemia Standing Ord. Heparin Sodium (Porcine) (Heparin Sodium,Porcine 5,000 Unit/Ml Vial) 5,000 unit SUBCUT Q8H [facility] Last Admin: 05/11/24 09:49 Dose: 5,000 unit Dextrose (D10) 250 mls @ 750 mls/hr IV Q15M PRN; Protocol PRN Reason: per Hypoglycemia Standing Ord. Insulin Human Lispro (Insulin Lispro 100 Unit/Ml 3 Ml Vial) 0 unit SUBCUT QIDACHS [facility]; Protocol Last Admin: 05/11/24 11:28 Dose: Not Given Levetiracetam (Levetiracetam Oral Soln 500 Mg/5 Ml) 500 mg PO BID [facility] Last Admin: 05/11/24 09:47 Dose: 500 mg Olanzapine (Olanzapine 10 Mg Tablet) 10 mg PO BEDTIME [facility] Last Admin: 05/05/24 21:00 Dose: 10 mg Sodium Chloride (0.9 % Sodium Chloride Flush 3 Ml Syringe) 3 ml IVFLUSH QSHIFT [facility] Last Admin: 05/11/24 09:48 Dose: 3 ml Topiramate (Topiramate 25 Mg Tablet) 50 mg PO BID [facility] Last Admin: 05/11/24 09:48 Dose: 50 mg Home Medications ?Medication ?Instructions ?Recorded ?Confirmed ?Last Taken ?Type lancets 28 gauge ([employer] Twist #100 ea 08/12/22 01/15/24 Unknown History Top Lancet) insulin glargine 100 unit/mL (3 4 unit subcut DAILY 01/09/23 05/04/24 Unknown History mL) subcutaneous pen (Ankit RuizPen U-100 Insulin) lorazepam 0.5 mg tablet 2.5 mg PO BID PRN Agitation 01/09/23 05/03/24 Unknown History escitalopram oxalate 5 mg/5 mL 10 mg PO DAILY 07/24/23 05/03/24 Unknown History oral solution gabapentin 100 mg capsule 100 mg PO TID 01/15/24 05/03/24 Unknown History olanzapine 10 mg tablet (Zyprexa) 10 mg PO BEDTIME 01/15/24 05/03/24 Unknown History atorvastatin 20 mg tablet 40 mg PO BEDTIME 05/03/24 05/03/24 Unknown History finasteride 5 mg tablet 5 mg PO DAILY 05/03/24 05/03/24 Unknown History gabapentin 300 mg capsule 300 mg PO BEDTIME 05/03/24 05/03/24 Unknown History Physical Exam 2 Vital Signs: Vital Signs: Last Vital Signs Temp 97.5 F 05/11/24 07:51 Pulse 56 05/11/24 07:51 Resp 17 05/11/24 07:51 BP 143/76 H 05/11/24 07:51 Pulse Ox 98 05/11/24 07:51 O2 Del Method Room Air 08/13/24 07:51 O2 Flow Rate 2 05/06/24 07:01 FiO2 98 05/06/24 00:19 BMI result Body Mass Index 22.5 Neuro: Other: He is alert and awake with decreased spontaneity and fluency of speech but he also did not speak Chinese. He was following one-step commands. There was no gaze deviation. There was [id number] continuous bilateral hand tremor. Facial expression blinking were diminished. Generalized bradykinesia was noted. Results Labs 05/04/24 04:53 05/10/24 16:26 Labs: BMP 05/10/24 16:26 Sodium 139 Potassium 4.1 Chloride 108 Carbon Dioxide 24 BUN 13 Creatinine 0.79 Calcium 9.0 Liver Function 05/10/24 Range/Units 16:26 Total Bilirubin 0.4 (0.0-1.0) mg/dL Direct Bilirubin 0.1 (0.0-0.5) mg/dL AST 34 (5-37) U/L ALT 45 H (0-40) U/L Alkaline Phosphatase 79 (39-117) U/L Albumin 3.6 (3.5-5.0) g/dL MRI of brain without contrast did not reveal any significant abnormality. Assessment and Plan (1) Encephalopathy: Qualifiers: Encephalopathy type: unspecified encephalopathy Qualified Code(s): G 93.40 - Encephalopathy, unspecified Status: Acute 74 years old man with underlying psychotic disorder taking 2nd generation antipsychotic drugs, moderately severe secondary parkinsonism, and cognitive and physical disability. Recent EEG was mildly abnormal suggestive of partial seizure disorder and he has been taking Depakote. There was no obvious metabolic abnormality. As far as overall physical ability is concerned, I suggest increasing dose of carbidopa levodopa to 25/100, 2 tablets 4 times a day. Depakote, which could help with behavior and seizures, can continue. Procedures Date of Service Date of Service: 05/11/24
[2024-05-11 12:00] VITALS: BP 139/88; PULSE 91; RESP 18; TEMP 36.6; O2SAT 98
--- NOTE | 2024-05-11 12:34 | P.F2F_ITS ---
Service Date Service Date: 05/11/24 Encounter Date of encounter: 05/11/24 Encounter: Acute hospitalization Reasons for Services Signs and symptoms assessed: Needs home physical therapy Reason for physical therapy: home safety and mobility, therapeutic exercises and gait/transfer training Homebound: Leaving the home is medically contraindicated at this time without the asist of a device and/or another person due th the listed conditions above and below. Reason homebound: unsteady gait / fall risk, cognitively impaired / unsafe and unable to drive Certification: Based on the above findings, I certify that this patient is confined to the home and needs intermittent shelter care, physical therapy and/or speech therapy, or continues to need occupational therapy. The patient is under my care, and I have initiated the establishment of the plan of care. The patient will be followed by a physician who will periodically review the plan of care. Time Spent With Patient Time: Total time managing care of this patient today ____ minutes.
--- NOTE | 2024-05-11 13:22 | MHC.SPEECHCO ---
RN SPINE spoke with [facility] program coordinator re: MBSS recommendations to take place on an outpatient basis to prevent increased length of stay. Coordinator passed the message along to the [facility] RN at [facility]. Coordinator expresses satisfaction with this outcome.
--- NOTE | 2024-05-11 14:54 | MHC.CM.PN ---
YENIFER received a call from Nurse/Arminda and per her request, YENIFER has asked MD to fax scripts for Keppra and Atorvastatin 40 Mg to [facility] in [place].
--- NOTE | 2024-05-11 15:07 | MHC.CM.PN ---
Per , scripts for Keppra & Atorvastatin 40 Mg are, all set.
== END 2024-05-11 13:28 | disposition home health service (06) | DRG 948 ==
LOC: HO.ED 21:13 → HO.EDOVER 22:48 → HO.IMC 05-04 19:07
PROVIDERS: Internal Medicine; Nurse Practitioner Family; Physician Assistant; Admitting Provider Internal Medicine; Emergency Provider Emergency Medicine; PCP Internal Medicine; Visit Provider Hospitalist
DX: R53.1 Weakness (principal); G21.9 Secondary parkinsonism, unspecified; F02.80 Dementia in other diseases classified elsewhere, unspecified severity, without behavioral disturbance, psychotic disturbance, mood disturbance, and anxiety; R94.01 Abnormal electroencephalogram [EEG]; E11.9 Type 2 diabetes mellitus without complications; E78.5 Hyperlipidemia, unspecified; N40.0 Benign prostatic hyperplasia without lower urinary tract symptoms; F20.3 Undifferentiated schizophrenia; Z20.822 Contact with and (suspected) exposure to COVID-19; Z79.4 Long term (current) use of insulin; Z79.84 Long term (current) use of oral hypoglycemic drugs; Z79.82 Long term (current) use of aspirin; Z79.899 Other long term (current) drug therapy
CPT/HCPCS: 36415; 70450; 70496; 70498; 70551; 80048; 80061; 80076; 81003; 82947; 83036; 84484; 85025; 85610; 85730; 87635; 92526; 92610; 93005; 93306; 95816; 97162; 97167; 99285; J1644; J2060; J2270; Q9957; Q9967

== ENCOUNTER → 2024-05-03 14:25 | Outpatient (BNV) | payer MEDICARE, MEDICAID, SELFPAY | PROVIDERS: Admitting Provider Internal Medicine; Emergency Provider Emergency Medicine; PCP Internal Medicine; Visit Provider Internal Medicine Cardiovascular Disease | DX: R53.1 Weakness (principal) | CPT/HCPCS: 93010 ==

== ENCOUNTER 2024-05-03 22:41 | Outpatient (BNV) | payer MEDICARE, MEDICAID, SELFPAY | END 2024-05-04 07:00 | PROVIDERS: Admitting Provider Internal Medicine; Emergency Provider Emergency Medicine; PCP Internal Medicine; Visit Provider Internal Medicine Cardiovascular Disease | DX: I35.1 Nonrheumatic aortic (valve) insufficiency (principal); I35.8 Other nonrheumatic aortic valve disorders; I34.81 Nonrheumatic mitral (valve) annulus calcification | CPT/HCPCS: 93306 ==

== ENCOUNTER → 2024-05-03 22:41 | Outpatient (BNV) | payer MEDICARE, MEDICAID, SELFPAY | PROVIDERS: Admitting Provider Internal Medicine; Emergency Provider Emergency Medicine; PCP Internal Medicine; Visit Provider Psychiatry & Neurology Neurology | DX: G93.40 Encephalopathy, unspecified (principal); G21.19 Other drug induced secondary parkinsonism | CPT/HCPCS: 99222; 99232 ==

== ENCOUNTER → 2024-05-03 22:41 | Outpatient (BNV) | payer MEDICARE, MEDICAID, SELFPAY | PROVIDERS: Admitting Provider Internal Medicine; Emergency Provider Emergency Medicine; PCP Internal Medicine; Visit Provider Internal Medicine | DX: R53.1 Weakness (principal) | CPT/HCPCS: 99223; 99231; 99232; 99239; 99499; G0180 ==

== ENCOUNTER 2024-05-18 13:26 | Outpatient (AMB) | payer MEDICARE, MEDICAID, SELFPAY ==
[2024-05-18 13:27] VITALS: BP 106/64; PULSE 106; O2SAT 97
--- NOTE | 2024-05-18 13:27 | A.OFFPC_ITS ---
Vital Signs 05/18/24 13:27 Height 5 ft 8 in BMI Reason not done Patient refused/unable BP 106/64 Blood Pressure Location Lt brachial Position Sitting Pulse 106 H Pulse Source Pulse Oximeter Pulse Oximetry (%) 97 Oxygen Delivery Method Room Air Intake Visit Reasons: [facility] 05/11 ? stroke Intake Note: Patient is here for hospital discharge follow up. [place] [facility] [place] Advertising Sales Associate Required: No Allergies perfume Allergy (Intermediate, Verified 05/18/24 13:33) ITCHING Medication List - Last Reconciled 05/18/24 by Staci Liang PA-C aspirin (Aspirin Childrens) 81 mg PO DAILY atorvastatin (Lipitor) 40 mg PO BEDTIME blood sugar diagnostic (Prodigy No Coding strips) Test 3 times daily [BRIEF LArge As directed] carbidopa-levodopa 25-100 mg 2 tabs PO QID compress.stocking,knee,reg,med As directed 20-30 mm HG diaper,brief,adult,disposable As directed - 4x a day divalproex 500 mg (4 x 125 mg) PO BID 90 days escitalopram oxalate 10 mg PO DAILY finasteride 5 mg PO DAILY gabapentin 300 mg PO BEDTIME gabapentin 100 mg PO TID PRN insulin glargine (Basaglar KwikPen U-100 Insulin) 4 units subcut DAILY lancets (Prodigy Twist Top Lancet) As directed levetiracetam (Keppra) 500 mg PO BID lisinopril 10 mg PO DAILY metformin 1,000 mg PO BID mirtazapine 15 mg PO BEDTIME 90 days olanzapine (Zyprexa) 10 mg PO BEDTIME [PRODIGY LANCET As directed] [ROHO CUSHION As directed] [SHOWER/COMMODE CHAIR ON WHEELS As directed] terazosin 10 mg PO BEDTIME 90 days [THICK IT As directed] topiramate (Topamax) 50 mg PO BID 90 days [WHEELCHAIR WITH CLIPBELT CLAMP HOOKS OR TIE DOWN As directed] Tobacco use date assessed: 10/09/23 Fall risk assessment: No Falls in past year Last assessed Fall Risk: 05/18/24 Dental Screening Dental Screen Date: 03/25/24 HPI [facility] 05/11 ? stroke HPI Details 74-year-old overweight male with schizop hrenia, hypertension, GERD, hypercholesterolemia, BPH, controlled diabetes mellitus, history of TIA, peripheral vascular disease, parkinsonism coming in for hospital follow-up.? In review of the notes, patient was [place] in [facility] [place] via EMS with speech difficulty and left-sided weakness.? While in the ER CBC, CMP troponin, INR, and head CT were all negative.? He had a neck CTA showed no large vessel occlusion.? EKG was negative.? Consult and neuro who recommended Keppra 500 mg b.i.d. for possible seizure.? Patient was discharged to halfway and consider follow up Neurology. Patient presents today with halfway staff who states he is still has left- sided weakness and difficulty with his memory which has always been present. He is working with in-home physical therapy. They do mentioned he has been slouching more with eating and having difficulty or slowed swallowing and is scheduled for a swallow test tomorrow. Otherwise patient appears to be at baseline. [facility] Medical History Buttock wound Nausea & vomiting Hospital discharge follow-up Confusion Urinary incontinence Weakness of both lower limbs Screening for eye condition Type 2 diabetes mellitus with hyperglycemia, without long-term current use of insulin Diabetes type 2, uncontrolled Unsteady gait Subungual hematoma of great toe Rash Bruising Annual physical exam Pedal edema Oropharyngeal dysphagia Occipital infarction Tubular adenoma of colon Type 2 diabetes mellitus with hyperglycemia Dysphagia Vitamin D deficiency Parkinson's disease Developmental delay, moderate Hypercholesteremia Gastroesophageal reflux disease Hypertension Metabolic encephalopathy Schizophrenia Depression BPH with obstruction/lower urinary tract symptoms Surgical History History of circumcision History of prostate surgery History of colonoscopy Family History Father Type II diabetes mellitus Mother Type II diabetes mellitus Social History Household Members: Caregiver Housing: Assisted Living Facility Housing Other:: [facility] Do you presently have visiting nurse or other home services: Yes Alcohol intake: unknown Comment: caregiver in room Patient Tobacco Use Status: Never used Tobacco e-Cigarette/Vaping Use: Never Used Second Hand Smoke Exposure: No Advance Directives Date on File: 07/11/21 service: No Current occupational status: disabled Current occupational exposures/hazards: No Cognitive needs: Yes Hearing needs: No Vision needs: No Questionnaire Thrive Questionnaire Date Thrive assessed: 05/04/24 AUDIT C Alcohol Use Questionnaire (AUDIT-C) 1. How often do you have a drink containing alcohol?: Never 3. How often do you have six or more drinks on one occasion?: Never Total Score: 0 Score Reviewed/Action Taken: No NAIVN-7 AMB Questionnaire NAVIN-7 Date NAVIN - 7 assessed: 10/09/23 Source: Developed by Drs. Ran Nieves, Bertha Lao, Natanael Chen and colleagues, with an educational sanford from [employer]. Review of Systems Const Denies body aches, Denies chills, Denies fever(s) and Denies poor appetite Eyes Reports no additional complaints ENT Details: Slowed swallowing Card Denies chest pain, Denies edema and Denies dyspnea Resp Denies cough and Denies dyspnea GI Denies abdominal pain, Denies nausea and Denies vomiting Reports no additional complaints Musc Details: Persistent left-sided weakness Skin/Breast Reports system reviewed and no additional complaints, except as documented Psych Reports no additional complaints Physical exam (Primary Care) Vital Signs: Last Vital Signs Pulse 106 H 05/18/24 13:27 BP 106/64 05/18/24 13:27 Pulse Ox 97 05/18/24 13:27 Oxygen Delivery Method Room Air 05/18/24 13:27 Tobacco/Smoking Status: Tobacco use Status Tobacco use date assessed 10/09/23 05/18/24 13:29 Patient Tobacco Use Status Never used Tobacco 05/18/24 13:29 e-Cigarette/Vaping Use Never Used 05/18/24 13:29 Thrive Assessment: Date of Thrive Assessment Date Thrive assessed 05/04/24 05/18/24 13:29 Const General: cooperative, healthy appearing, comfortable and no acute distress Orientation/consciousness: patient oriented x3 HENMT Head: Yes normocephalic Ears: hearing grossly normal bilaterally General nose exam: Normal external nose present Eyes General: appearance normal, both eyes and all related structures Conjunctivae: conjunctivae normal Neck Neck: Yes full ROM and Yes no lymphadenopathy Resp Effort & Inspection: normal respiratory effort Auscultation: clear to auscultation bilaterally, no crackles, no rales, no rhonchi and no wheezes Cardio Rate: regular rate Rhythm: regular rhythm Skin General skin exam: no rashes or lesions noted Neuro General: patient oriented x3 and Unable to assess gait (Presents in wheelchair) Cranial nerves: Yes Ability to bilaterally elevate shoulders present Gait exam (Neuro): Unable to assess gait (Presents in wheelchair) Extrem General: Yes normal to inspection, Yes full ROM and No edema Psych Affect: normal affect Attitude: cooperative Insight: Good insight present (Psych) Judgement: Good judgement present (Psych) Assessment and Plan Assessment & Plan (1) Parkinsonism: Comment: July 2023 admission Code(s): G20.C - Parkinsonism, unspecified Qualifiers: Parkinsonism type: primary Parkinsonism Qualified Code(s): G20.C - Parkinsonism, unspecified Plan: Continue to follow with Neurology referral placed today. Per neurology consult while admitted increase 2 carbidopa levodopa. Patient also having difficulty swallowing and is having a swallow study tomorrow. (2) Seizure: Code(s): R56.9 - Unspecified convulsions Plan: Patient thought to have possibly had a seizure previous to admission. Keppra 500 mg b.i.d. started. Referral to Neurology placed today. (3) Left-sided weakness: Code(s): R53.1 - Weakness Plan: Per staff reports left-sided weakness is still prominent. Patient is working with physical therapy and has already been evaluated in home. Continue to work with physical therapy. Plan This note was constructed using voice recognition software. While every effort has been made to ensure accuracy and control systems eng, still areas may have been included sometimes these areas may affect the content or meeting of the given symptoms. Total time spent caring for the patient today was 30 minutes. This includes time spent before the visit reviewing the chart, time spent during the visit, and time spent after the visit and documentation. Orders: Referrals Neurology Referral G20.C - Parkinsonism, unspecified, G45.9 - Transient cerebral ischemic attack, unspecified, R41.0 - Disorientation, unspecified, R56.9 - Unspecified convulsions Medications: New [chair with shoulder harness] As directed 1 ea 0RF Refilled [SHOWER/COMMODE CHAIR ON WHEELS] As directed 1 ea 0RF G20.C - Parkinsonism, unspecified, R26.81 - Unsteadiness on feet Coding Level of Care Code Est Pt Level 3 (82362) Diagnoses Primary parkinsonism G20.C Parkinsonism type: primary Parkinsonism Seizure R56.9 Left-sided weakness R53.1
== END 2024-05-18 14:15 | disposition home or self-care (01) ==
PROVIDERS: PCP Internal Medicine
DX: G20.C Parkinsonism, unspecified (principal); R56.9 Unspecified convulsions; R53.1 Weakness
CPT/HCPCS: 99214

== ENCOUNTER 2024-06-02 11:07 | Outpatient (AMB) | payer MEDICARE, MEDICAID, SELFPAY ==
[2024-06-02 11:51] VITALS: BP 136/64; PULSE 97; O2SAT 96
--- NOTE | 2024-06-02 11:51 | MHC.PC.OV ---
Vital Signs 06/02/24 11:51 Height 5 ft 8 in BMI Reason not done Patient refused/unable BP 136/64 Blood Pressure Location Lt brachial Position Sitting Pulse 97 Pulse Source Pulse Oximeter Pulse Oximetry (%) 96 Oxygen Delivery Method Room Air Intake Visit Reasons: Diabetes mellitus, Waste Chopper Required: No Allergies perfume Allergy (Intermediate, Verified 06/02/24 11:51) ITCHING Tobacco use date assessed: 10/09/23 Fall risk assessment: No Falls in past year Last assessed Fall Risk: 06/02/24 Dental Screening Dental Screen Date: 03/25/24 HPI Diabetes mellitus, HPI Details 74-year-old male with mental behavior problem having a history of seizures parkinsonism schizophrenia GERD hypercholesterolemia diabetes mellitus left-sided weakness with gait instability coming in for follow-up. Last seen in May 18 2024. PAtient has limited mobility right now - prescribing wheelchaur with harness and shower chair this is due to decline and seizures need to have a customized wheelchair , shower chair and a dining chair to hold him up. PAtient presently sitting in the wheel chair and not moving, does not try to move feet, has tremors of the hand. [facility] Medical History Buttock wound Nausea & vomiting Hospital discharge follow-up Confusion Urinary incontinence Weakness of both lower limbs Screening for eye condition Type 2 diabetes mellitus with hyperglycemia, without long-term current use of insulin Diabetes type 2, uncontrolled Unsteady gait Subungual hematoma of great toe Rash Bruising Annual physical exam Pedal edema Oropharyngeal dysphagia Occipital infarction Tubular adenoma of colon Type 2 diabetes mellitus with hyperglycemia Dysphagia Vitamin D deficiency Parkinson's disease Developmental delay, moderate Hypercholesteremia Gastroesophageal reflux disease Hypertension Metabolic encephalopathy Schizophrenia Depression BPH with obstruction/lower urinary tract symptoms Surgical History History of circumcision History of prostate surgery History of colonoscopy Family History Father Type II diabetes mellitus Mother Type II diabetes mellitus Social History Household Members: Caregiver Housing: Assisted Living Facility Housing Other:: [facility] Do you presently have visiting nurse or other home services: Yes Alcohol intake: unknown Comment: caregiver in room Patient Tobacco Use Status: Never used Tobacco e-Cigarette/Vaping Use: Never Used Second Hand Smoke Exposure: No Advance Directives Date on File: 07/11/21 service: No Current occupational status: disabled Current occupational exposures/hazards: No Cognitive needs: Yes Hearing needs: No Vision needs: No Questionnaire Thrive Questionnaire Date Thrive assessed: 05/04/24 AUDIT C Alcohol Use Questionnaire (AUDIT-C) 1. How often do you have a drink containing alcohol?: Never 3. How often do you have six or more drinks on one occasion?: Never Total Score: 0 Score Reviewed/Action Taken: No NAVIN-7 AMB Questionnaire NAVIN-7 Date NAVIN - 7 assessed: 10/09/23 Source: Developed by Drs. Ran Nieves, Bertha Lao, Natanael Chen and colleagues, with an educational sanford from [employer]. Physical exam (Primary Care) Vital Signs: Last Vital Signs Pulse 97 06/02/24 11:51 BP 136/64 06/02/24 11:51 Pulse Ox 96 06/02/24 11:51 Oxygen Delivery Method Room Air 06/02/24 11:51 Tobacco/Smoking Status: Tobacco use Status Tobacco use date assessed 10/09/23 06/02/24 11:52 Patient Tobacco Use Status Never used Tobacco 06/02/24 11:52 e-Cigarette/Vaping Use Never Used 06/02/24 11:52 Thrive Assessment: Date of Thrive Assessment Date Thrive assessed 05/04/24 06/02/24 11:52 Const General: alert; No acute distress Eyes Conjunctivae: conjunctivae normal Resp Auscultation: clear to auscultation bilaterally Cardio Rate: regular rate Rhythm: regular rhythm GI Inspection: Yes normal to inspection Back/Spine/Pelvis Back/spine/pelvis image: 1. 1 cm bilateral gluteal area desquamation mild erythema 2. Skin Other: noted pressure ulcers on the sacral area bilateral with the skin sloughed off. Patient all the time in the office is sitting down not really moving and not responding. Is awake does grimace on moving him but otherwise no reflexes. Extrem General: Yes normal to inspection and No edema Assessment and Plan Assessment & Plan (1) Type 2 diabetes mellitus with hyperglycemia: Code(s): E11.65 - Type 2 diabetes mellitus with hyperglycemia Qualifiers: Diabetes mellitus alf insulin use: with terminal supervisor use Qualified Code(s): E11.65 - Type 2 diabetes mellitus with hyperglycemia; Z79.4 - ad terminal makeup operator (current) use of insulin Plan: Decrease the amount of carbohydrate intake, pasta, bread, rice and potatoes are all sugar and that is aside from all the sweet stuff, remember that fruits are good but they are Sweet also. Hemoglobin A1c goal of less than 7.0 on insulin (2) Hypercholesteremia: Code(s): E78.00 - Pure hypercholesterolemia, unspecified Plan: Avoid fried foods, chicken skin, eggs, butter margarine, pastries and meat. Be it pork or beef they have a lot of cholesterol LDL goal of less than 100 and triglyceride of less than 150 (3) Gastroesophageal reflux disease: Code(s): K21.9 - Gastro-esophageal reflux disease without esophagitis Qualifiers: Esophagitis presence: without esophagitis Qualified Code(s): K21.9 - Gastro-esophageal reflux disease without esophagitis Plan: Avoid the foods that causes that usually spicy foods, tomato products, juices, coffee, soda and foods that your sensitive to. After eating do not lie down, allow 3-4 hours before in lie down. And keep the head of bed above 30 degrees to avoid the acid from going up. (4) Hypertension: Comment: Echo normal ejection fraction with impaired relaxation April 2020 Code(s): I10 - Essential (primary) hypertension Qualifiers: Hypertension type: primary hypertension Qualified Code(s): I10 - Essential (primary) hypertension Plan: Continue with blood pressure medication. Decrease salt intake and exercise on lisinopril 10 mg once a day (5) Schizophrenia: Comment: Dr. Duffy; 20 min reviewing chart evaluating patient and documenting Code(s): F20.9 - Schizophrenia, unspecified Qualifiers: Schizophrenia type: undifferentiated schizophrenia Qualified Code(s): F20.3 - Undifferentiated schizophrenia Plan: Continue with psychiatric follow-up (6) Seizure: Code(s): R56.9 - Unspecified convulsions Plan: Patient is on Depakote Keppra (7) Dysphagia: Code(s): R13.10 - Dysphagia, unspecified Plan: prescription for thick it done (8) Pressure ulcer: Code(s): L89.90 - Pressure ulcer of unspecified site, unspecified stage (9) Pressure ulcer of sacral region: Code(s): L89.159 - Pressure ulcer of sacral region, unspecified stage (10) Lower extremity weakness: Code(s): R29.898 - Other symptoms and signs involving the musculoskeletal system Plan: Patient sits erect but does not move any limb nor respond to any command. With this the need for the shower chair as well as a wheelchair to help with mood stability for the activities of daily living. Medications: New starch (thickening) ([employer] Thick-It oral powder) mix 4-5 tsp of thick to every 4 ounces of liquid every meal orally; 30 days 850 grams 12RF R13.10 - Dysphagia, unspecified starch (thickening) ([employer] Thick-It oral powder) mix 4-5 tsp of thick to every 4 ounces of liquid every meal orally; 30 days 850 grams 12RF R13.10 - Dysphagia, unspecified collagenase clostridium histo. (Santyl) 1 appl topical DAILY PRN 30 grams 4RF wound care L89.159 - Pressure ulcer of sacral region, unspecified stage collagenase clostridium histo. (Santyl) Bilateral 1 cm gluteal area desquamation 1 appl topical DAILY PRN 30 grams 4RF wound care L89.159 - Pressure ulcer of sacral region, unspecified stage Coding Level of Care Code Est Pt Level 4 (07840) Diagnoses Type 2 diabetes mellitus with hyperglycemia, with long-term current use of insulin E11.65; Z79.4 Diabetes mellitus terminal supervisor insulin use: with terminal supervisor use Hypercholesteremia E78.00 Gastroesophageal reflux disease without esophagitis K21.9 Esophagitis presence: without esophagitis Primary hypertension I10 Hypertension type: primary hypertension Schizophrenia F20.3 Schizophrenia type: undifferentiated schizophrenia Seizure R56.9 Dysphagia R13.10 Pressure ulcer L89.90 Pressure ulcer of sacral region L89.159 Lower extremity weakness R29.898
== END 2024-06-02 12:52 | disposition home or self-care (01) ==
PROVIDERS: PCP Internal Medicine; Visit Provider Internal Medicine
DX: E11.65 Type 2 diabetes mellitus with hyperglycemia (principal); Z79.4 Long term (current) use of insulin; F20.3 Undifferentiated schizophrenia; R56.9 Unspecified convulsions; E78.00 Pure hypercholesterolemia, unspecified; K21.9 Gastro-esophageal reflux disease without esophagitis; I10 Essential (primary) hypertension; R13.10 Dysphagia, unspecified; L89.90 Pressure ulcer of unspecified site, unspecified stage; L89.159 Pressure ulcer of sacral region, unspecified stage; R29.898 Other symptoms and signs involving the musculoskeletal system
CPT/HCPCS: 99214

== ENCOUNTER 2024-07-05 08:09 | Emergency (ER) | payer MEDICARE, MEDICAID, SELFPAY ==
--- NOTE | ~2024-07-05 | XR_ITS ---
EXAMINATION: XR CHEST CLINICAL INFORMATION: Cough, concern for aspiration COMPARISON: 10/05/2023 TECHNIQUE: Frontal view of the chest was obtained. FINDINGS: Cardiomediastinal silhouette is normal in size. Low lung volumes. Some atelectasis in lung bases without consolidation, pleural effusion or pneumothorax. XR/XR chest 1V IMPRESSION: Low lung volumes. No acute cardiopulmonary process. Electronically signed by: Ran Garcia MD 07/05/2024 09:21 AM EDT
--- NOTE | 2024-07-05 08:13 | ECG_ITS ---
Test Reason : dyspnea Blood Pressure : / mmHG Vent. Rate : 109 BPM Atrial Rate : 109 BPM P-R Int : 120 ms QRS Dur : 088 ms QT Int : 324 ms P-R-T Axes : 032 -06 050 degrees QTc Int : 436 ms Sinus tachycardia Otherwise normal ECG When compared with ECG of 03-MAY-2024 14:52, No significant change was found Referred By: Lois Hollins Electronically Signed By:KITA LANG
--- NOTE | 2024-07-05 08:24 | ED_ITS ---
HPI - SOB/Dyspnea General Chief Complaint: Upper Respiratory Symptoms Stated Complaint: COUGHING FROM ASPIRATION FROM [facility] PER EMS Time Seen by Provider: 07/05/24 08:11 Source: patient, EMS and old records reviewed Mode of arrival: EMS Limitations: other (poor historian) History of Present Illness ED Provider: CHANTEL HPI Narrative: 74 yo male with PMH of CVA and L sided weakness, seizures on AEDs, parkinsons ds, dysphagia, PVD, HLD, HTN, schizophrenia here with c/o doing fine until given his AM medications with liquid then started to cough and aspirate. Staff was concerned so they called EMS patient agitated at baseline. No symptoms reportedly yesterday. MD elicited complaint: cough Pertinent past history: aspiration Onset (ago): hour(s) (1) Context: choking/aspiration Timing: intermittent Severity: moderate Exacerbating factors: coughing Relieving factors: nothing Known history of: aspiration pneumonia Associated symptoms: denies other symptoms Treatment prior to arrival: none Related Data Home Medications ?Medication ?Instructions ?Recorded ?Confirmed lancets 28 gauge (Prodigy Twist #100 ea 08/12/22 05/18/24 Top Lancet) insulin glargine 100 unit/mL (3 4 unit subcut DAILY 01/09/23 05/18/24 mL) subcutaneous pen (Basaglar KwikPen U-100 Insulin) escitalopram oxalate 5 mg/5 mL 10 mg PO DAILY 07/24/23 05/18/24 oral solution olanzapine 10 mg tablet (Zyprexa) 10 mg PO BEDTIME 01/15/24 05/18/24 finasteride 5 mg tablet 5 mg PO DAILY 05/03/24 05/18/24 gabapentin 300 mg capsule 300 mg PO BEDTIME 05/03/24 05/18/24 Previous Rx's ?Medication ?Instructions ?Recorded mirtazapine 15 mg disintegrating 15 mg PO BEDTIME 90 days #90 tabs 01/01/22 tablet THICK IT #1 ea 02/01/22 compress.stocking,knee,reg,med #2 ea 04/05/22 PRODIGY LANCET #100 ea 08/09/22 BRIEF LArge #100 ea 11/21/22 divalproex 125 mg capsule,delayed 500 mg (4 x 125 mg) PO BID 90 days 09/16/23 release sprinkle #720 caps metformin 1,000 mg tablet 1,000 mg PO BID #180 tabs 09/16/23 diaper,brief,adult,disposable #120 ea 10/01/23 terazosin 10 mg capsule 10 mg PO BEDTIME 90 days #90 caps 10/01/23 topiramate 50 mg tablet (Topamax) 50 mg PO BID 90 days #180 tabs 12/02/23 blood sugar diagnostic (Prodigy No #100 ea 12/30/23 Coding strips) ROHO CUSHION #1 ea 04/20/24 WHEELCHAIR WITH CLIPBELT CLAMP #1 ea 04/20/24 HOOKS OR TIE DOWN gabapentin 100 mg capsule 100 mg PO TID PRN anxiety #1 cap 05/07/24 aspirin 81 mg chewable tablet 81 mg PO DAILY #90 tabs 05/18/24 (Aspirin Childrens) SHOWER/COMMODE CHAIR ON WHEELS #1 ea 06/02/24 chair with shoulder harness #1 ea 06/02/24 starch (thickening) (Diafoods See Rx Instructions PO .COMPLEX 30 06/02/24 Thick-It oral powder) days #850 grams collagenase clostridium histo. 250 1 appl topical DAILY PRN wound 06/07/24 unit/gram topical ointment (Santyl) care #30 grams swingway foot rest for wheelchair #2 ea 06/09/24 SHOWER CHAIR with ARMS #1 ea 06/09/24 atorvastatin 40 mg tablet (Lipitor) 40 mg PO BEDTIME #30 tabs 06/22/24 carbidopa 25 mg-levodopa 100 mg 2 tab PO QID #168 tabs 06/22/24 tablet levetiracetam 500 mg tablet 500 mg PO BID #60 tabs 06/22/24 (Keppra) lisinopril 10 mg tablet 10 mg PO DAILY #30 tabs 06/22/24 Allergies Allergy/AdvReac Type Severity Reaction Status Date / Time perfume Allergy Intermediate ITCHING Verified 07/05/24 08:44 Review of Systems 2 Review of Systems: ROS unable to be obtained due to poor historian PMFSH Past Medical History Attestation statement: The following information was validated with the patient. Source: old records reviewed Medical History Headache Buttock wound Nausea & vomiting Hospital discharge follow-up Confusion Urinary incontinence Weakness of both lower limbs Screening for eye condition Type 2 diabetes mellitus with hyperglycemia, without long-term current use of insulin Diabetes type 2, uncontrolled Unsteady gait Subungual hematoma of great toe Rash Bruising Annual physical exam Pedal edema Oropharyngeal dysphagia Occipital infarction Tubular adenoma of colon Type 2 diabetes mellitus with hyperglycemia Dysphagia Vitamin D deficiency Parkinson's disease Developmental delay, moderate Hypercholesteremia Gastroesophageal reflux disease Hypertension Metabolic encephalopathy Schizophrenia Depression BPH with obstruction/lower urinary tract symptoms Surgical History History of circumcision History of prostate surgery History of colonoscopy Family History Family History Father Type II diabetes mellitus Mother Type II diabetes mellitus Social History Social History Household Members: Caregiver Housing: Assisted Living Facility Housing Other:: [facility] Do you presently have visiting nurse or other home services: Yes Alcohol intake: unknown Comment: caregiver in room Patient Tobacco Use Status: Never used Tobacco e-Cigarette/Vaping Use: Never Used Second Hand Smoke Exposure: No Advance Directives: No Advance Directives Information Provided: Yes Advance Directives Date on File: 07/11/21 service: No Current occupational status: disabled Current occupational exposures/hazards: No Cognitive needs: Yes Hearing needs: No Vision needs: No Physical Exam 2 Vital Signs: Vital Signs: Last Vital Signs O2 Del Method Room Air 07/05/24 08:42 BMI result Body Mass Index 20.7 Appearance: Somnolent but easily woken, will not answer questions but upset when asked his name. No acute distress. Eyes: Pupils equal, round and reactive to light. ENT: Pharynx normal. no stridor Neck: Normal inspection. Neck supple. CVS: Normal heart rate and rhythm. Pulses normal. Respiratory: No respiratory distress. Breath sounds diminished with coarse cough Abdomen: Soft and nontender. Skin: Skin warm and dry. Normal skin color. Normal skin turgor. Extremities: No lower extremity edema. Neuro: will not participate in exam Course Course Course Narrative: lactic acidosis likely chronic coughing resolved Reevaluation(s) Reevaluation #1: lactic acid resolved no hypoxia 95% cough has resolved Medications Administered Discontinued Medications Generic Name Dose Route Start Last Admin Trade Name Freq PRN Reason Stop Dose Admin Sodium Chloride 500 mls @ 500 mls/hr 07/05/24 09:25 07/05/24 10:59 Ns IV 07/05/24 10:24 Infused .Q1H ONE Infusion Medical Decision Making Medical Decision Making [facility] Narrative: 74 yo male with PMH of CVA and L sided weakness, seizures on AEDs, parkinsons ds, dysphagia, PVD, HLD, HTN, schizophrenia here with c/o cough and choking after medications this AM he has no stridor on exam at this time will obtain basic labs and CXR - possible need for treatments if he has signs of aspiration. He is a very poor historian and cannot provide history. Differential Diagnosis Differential Diagnoses: The differential diagnosis associated with the presentation includes aspiration pneumonia, FTT, dysphagia Admission/Observation Consideration of admission/observation: Escalation of care including admission/observation considered CXR negative, neg procalcitoning Lab Data [facility] Lab Attestation statement: I reviewed the patient's lab results. chronic lactic acidosis negative CRP, neg procalcitonin 07/05/24 09:02 07/05/24 09:02 Labs: Lab Results 07/05/24 07/05/24 07/05/24 Range/Units 09:02 09:08 12:00 WBC 5.0 (4.8-10.8) X10*3/uL RBC 4.06 L (4.60-5.80) X10*6/uL Hgb 13.0 L (14.0-18.0) g/dl Hct 40.0 L (42.0-52.0) % MCV 98.5 H (80.0-98.0) fL MCH 32.0 (27.0-33.0) pg MCHC 32.5 (31.0-36.0) g/dl RDW 13.9 (11.0-16.0) % Plt Count 188 (160-400) X10*3/uL MPV 8.5 L (9.4-12.4) fL Immature Gran % (Auto) 0.6 H (0.0-0.4) % Neut % (Auto) 62.2 (45-73) % Lymph % (Auto) 17.7 L (20-40) % Jackson % (Auto) 12.9 H (2-11) % Eos % (Auto) 6.2 H (0-4) % Baso % (Auto) 0.4 (0-2) % Lymph # (Auto) 0.9 L (1.2-4.9) X10*3/uL Jackson # (Auto) 0.7 (0.1-1.2) X10*3/uL Eos # (Auto) 0.3 (0.0-0.4) X10*3/uL Baso # (Auto) 0.0 (0.0-0.2) X10*3/uL Abs Immat Gran (auto) 0.03 (0.00-0.03) X10*3/uL Absolute Neuts (auto) 3.1 (2.0-8.3) x10*3/uL Absolute Nucleated RBC 0.000 (0.0-0.012) X10*3/uL Nucleated RBC % (auto) 0.0 (0.0-0.2) /100WBC Hold Blue Top SEE NOTE VBG pH 7.38 (7.32-7.43) VBG pCO2 44 mmHg VBG pO2 78 mmHg VBG HCO3 26 (22-26) mmol/L VBG O2 Saturation 95.0 % VBG Base Excess 1.0 mmol/L Sodium 141 (135-145) mmol/L Potassium 4.4 (3.3-5.1) mmol/L Chloride 110 H (96-108) mmol/L Carbon Dioxide 24 (22-29) mmol/L Anion Gap 11 L (12-20) BUN 20 H (9-16) mg/dL Creatinine 0.83 (0.5-1.4) mg/dL Estim Creat Clear Calc 63.3 Estimated GFR > 60 Random Glucose 100 (60-115) mg/dL Lactic Acid 3.4 H* (0.5-2.0) mmol/L Lactic Acid F/U @ 2Hr 1.4 (0.5-2.0) mmol/L Calcium 9.2 (8.4-10.2) mg/dL Magnesium 1.7 (1.6-2.6) mg/dL Total Bilirubin 0.4 (0.0-1.0) mg/dL Direct Bilirubin 0.2 (0.0-0.5) mg/dL AST 12 (5-37) U/L ALT 8 (0-40) U/L Alkaline Phosphatase 73 (39-117) U/L Troponin I High Sens 3.5 (<3.5-35.0) ng/L C-Reactive Protein 0.15 (< or = 0.50) mg/dL B-Natriuretic Peptide 17 (<100) pg/mL Total Protein 6.2 L (6.5-8.0) g/dL Albumin 3.8 (3.5-5.0) g/dL Procalcitonin 0.03 ng/mL Valproic Acid 47.0 L (50.0-100.0) mcg/mL Influenza Type A (PCR) NEGATIVE (Negative) Influenza Type B (PCR) NEGATIVE (Negative) RSV RNA Qual (PCR) NEGATIVE (Negative) SARS-CoV-2 RNA (RT-PCR) NEGATIVE (Negative) Independent Interpretation I performed an independent interpretation of an: EKG and Plain X-Ray (no aspiration) Interpretation: Rate: 109 Rhythm: sinus tachycardia [place]: left Normal P waves. Normal ASHLEY. Normal QRS complex. ST T wave : normal no ALY qTC: 436 prior studies: no acute ischemia The study has been interpreted contemporaneously by me. . Radiology Impression Discussion of test interpretation with radiology: I have reviewed the radiologist's reading. Independent Historian Clinical information obtained from an independent historian. History obtained from or confirmed by: EMS External Record Review External record reviewed: Inpatient record Discharge Plan Discharge Clinical Impression: Choking episode Patient Disposition: Home, Self-Care Instructions: Dysphagia (ED) Additional Instructions: chest xray negative labs reassuring other than chronic lactic acidosis follow up for fevers, increased difficulty breathing or any other concerns Prescriptions: No Action mirtazapine 15 mg tablet,disintegrating 15 mg PO BEDTIME 90 Days Qty: 90 2RF (DME) THICK IT See Rx Instructions .Route .MEDSUPPLY Qty: 1 0RF Rx Instructions: As directed (DME) PRODIGY LANCET See Rx Instructions .Route .MEDSUPPLY Qty: 100 12RF Rx Instructions: As directed divalproex 125 mg capsule, delayed rel sprinkle 500 mg PO BID 90 Days Qty: 720 2RF metformin 1,000 mg tablet 1,000 mg PO BID Qty: 180 3RF topiramate [Topamax] 50 mg tablet 50 mg PO BID 90 Days Qty: 180 2RF Rx Instructions: crush and mix with soft foods (DME) Prodigy No Coding Strip See Rx Instructions .Route Qty: 100 6RF Rx Instructions: Test 3 times daily (DME) ROHO CUSHION See Rx Instructions .Route .MEDSUPPLY Qty: 1 0RF Rx Instructions: As directed (DME) WHEELCHAIR WITH CLIPBELT CLAMP HOOKS OR TIE DOWN See Rx Instructions .Route .MEDSUPPLY Qty: 1 0RF Rx Instructions: As directed aspirin [Aspirin Childrens] 81 mg tablet,chewable 81 mg PO DAILY Qty: 90 0RF Santyl 250 unit/gram ointment 1 appl topical DAILY PRN (Reason: wound care) Qty: 30 4RF Rx Instructions: Bilateral 1 cm gluteal area desquamation with Thin layer daily AM (DME) SHOWER CHAIR with ARMS See Rx Instructions .Route .MEDSUPPLY Qty: 1 0RF Rx Instructions: shower chair w/ arms and swingway foot rest for wheelchair (DME) swingway foot rest for wheelchair See Rx Instructions .Route .MEDSUPPLY Qty: 2 0RF Rx Instructions: shower chair w/ arms and swingway foot rest for wheelchair lisinopril 10 mg tablet 10 mg PO DAILY Qty: 30 0RF atorvastatin [Lipitor] 40 mg tablet 40 mg PO BEDTIME Qty: 30 0RF carbidopa-levodopa 25-100 mg tablet 2 tab PO QID Qty: 168 0RF Rx Instructions: 37.5 - 150 mg to be taken 4 times a day levetiracetam [Keppra] 500 mg tablet 500 mg PO BID Qty: 60 0RF escitalopram oxalate 5 mg/5 mL solution 10 mg PO DAILY insulin glargine [Basaglar KwikPen U-100 Insulin] 100 unit/mL (3 mL) insulin pen 4 unit subcut DAILY gabapentin 300 mg Capsule 300 mg PO BEDTIME finasteride 5 mg tablet 5 mg PO DAILY gabapentin 100 mg capsule 100 mg PO TID PRN (Reason: anxiety) Qty: 1 0RF (DME) compress.stocking,knee,reg,med Misc See Rx Instructions .Route Qty: 2 0RF Rx Instructions: As directed 20-30 mm HG olanzapine [Zyprexa] 10 mg tablet 10 mg PO BEDTIME (DME) SHOWER/COMMODE CHAIR ON WHEELS See Rx Instructions .Route .MEDSUPPLY Qty: 1 0RF Rx Instructions: As directed (DME) chair with shoulder harness See Rx Instructions .Route .MEDSUPPLY Qty: 1 0RF Rx Instructions: As directed (DME) BRIEF LArge See Rx Instructions .Route .MEDSUPPLY Qty: 100 11RF Rx Instructions: As directed Diafoods Thick-It Powder See Rx Instructions PO .COMPLEX 30 Days Qty: 850 12RF Rx Instructions: mix 4-5 tsp of thick to every 4 ounces of liquid every meal orally; (DME) lancets [Prodigy Twist Top Lancet] 28 gauge misc See Rx Instructions .ROUTE .MEDSUPPLY Qty: 100 Rx Instructions: As directed terazosin 10 mg capsule 10 mg PO BEDTIME 90 Days Qty: 90 3RF Rx Instructions: open capsule and mix with soft foods (DME) diaper,brief,adult,disposable Misc See Rx Instructions .ROUTE .MEDSUPPLY Qty: 120 11RF Rx Instructions: As directed - 4x a day Print Language: Guamanian
[2024-07-05 08:36] VITALS: BP 170/80; PULSE 120; O2SAT 94
[2024-07-05 08:42] VITALS: BMI 20.7
[2024-07-05 09:08] LABS: MANUAL DIFF FLAG NO
[2024-07-05 09:12] LABS: Venous Blood Gas Refer to POC result
[2024-07-05 09:14] LABS: Basophils Percent Auto 0.4 % (0-2); Eosinophils Absolute Auto 0.3 X10*3/uL (0.0-0.4); Eosinophils Percent Auto 6.2 % (0-4); Imm Gran Abs Auto 0.03 X10*3/uL (0.00-0.03); Imm Gran Pct Auto 0.6 % (0.0-0.4); Lymphocytes Absolute Auto 0.9 X10*3/uL (1.2-4.9); Lymphocytes Percent Auto 17.7 % (20-40); Mean Corpuscular HGB Conc 32.5 g/dl (31.0-36.0); Mean Corpuscular Volume 98.5 fL (80.0-98.0); Mean Platelet Volume 8.5 fL (9.4-12.4); Monocytes Absolute Auto 0.7 X10*3/uL (0.1-1.2); Monocytes Percent Auto 12.9 % (2-11); Neutrophils Absolute Auto 3.1 x10*3/uL (2.0-8.3); Neutrophils Percent Auto 62.2 % (45-73); Platelet Count 188 X10*3/uL (160-400); Red Blood Count 4.06 X10*6/uL (4.60-5.80); Red Cell Distribution Width 13.9 % (11.0-16.0)
[2024-07-05 09:21] LABS: VBG HCO3 26 mmol/L (22-26); VBG pCO2 44 mmHg; VBG pH 7.38 (7.32-7.43); VBG pO2 78 mmHg
[2024-07-05 09:26] LABS: Lactic Acid 3.4 mmol/L (0.5-2.0)
[2024-07-05 09:31] LABS: B Type Natriuretic Peptide 17 pg/mL (<100)
[2024-07-05 09:33] LABS: Alanine Aminotransferase 8 U/L (0-40); Albumin Level 3.8 g/dL (3.5-5.0); Alkaline Phosphatase 73 U/L (39-117); Anion Gap 11 (12-20); Aspartate Amino Transferase 12 U/L (5-37); Bilirubin Direct 0.2 mg/dL (0.0-0.5); Bilirubin Total 0.4 mg/dL (0.0-1.0); Blood Urea Nitrogen 20 mg/dL (9-16); C Reactive Protein 0.15 mg/dL (< or = 0.50); Calcium 9.2 mg/dL (8.4-10.2); Carbon Dioxide 24 mmol/L (22-29); Chloride 110 mmol/L (96-108); Creatinine Clr Calc Pharmacy 63.3; Estimated Glomerular Filt Rate > 60; Glucose Random 100 mg/dL (60-115); Magnesium 1.7 mg/dL (1.6-2.6); Potassium 4.4 mmol/L (3.3-5.1); Sodium 141 mmol/L (135-145); Total Protein 6.2 g/dL (6.5-8.0); Troponin-I High Sensitivity 3.5 ng/L (<3.5-35.0)
[2024-07-05 09:46] LABS: Influenza A PCR NEGATIVE (Negative); Influenza B PCR NEGATIVE (Negative); Resp Syncy Virus RNA Qual PCR NEGATIVE (Negative); SARS COV2 PCR INHOUSE NEGATIVE (Negative)
[2024-07-05 09:47] LABS: Procalcitonin 0.03 ng/mL
[2024-07-05] MEDS: 0.9 % Sodium Chloride 500 ML IV (09:51)
[2024-07-05 11:07] LABS: Reflex Lactate? Lactic Acid Added
[2024-07-05 12:17] LABS: ~Lactic Acid-LAB USE ONLY 1.4 mmol/L (0.5-2.0)
[2024-07-05 12:33] VITALS: BP 145/76; PULSE 85; RESP 20; TEMP 36.1; O2SAT 95
[2024-07-05 12:57] VITALS: BP 133/77; PULSE 81; RESP 18; TEMP 36.2; O2SAT 96
== END 2024-07-05 13:32 | disposition home or self-care (01) ==
PROVIDERS: Emergency Provider Emergency Medicine; PCP Internal Medicine
DX: R13.12 Dysphagia, oropharyngeal phase (principal); R00.0 Tachycardia, unspecified; Z03.818 Encounter for observation for suspected exposure to other biological agents ruled out; R05.9 Cough, unspecified; E11.9 Type 2 diabetes mellitus without complications; I10 Essential (primary) hypertension; E78.00 Pure hypercholesterolemia, unspecified; Z79.84 Long term (current) use of oral hypoglycemic drugs; Z79.82 Long term (current) use of aspirin
CPT/HCPCS: 0241U; 36415; 71045; 80048; 80076; 80164; 82803; 83605; 83735; 83880; 84145; 84484; 85025; 86140; 87040; 93005; 96360; 99284

== ENCOUNTER 2024-07-10 11:21 | Emergency (ER) | payer MEDICARE, MEDICAID, SELFPAY ==
--- NOTE | ~2024-07-10 | CT_ITS ---
EXAMINATION: CT HEAD WITHOUT CONTRAST CT CERVICAL SPINE WITHOUT CONTRAST CLINICAL INFORMATION: Fall. COMPARISON: Head CTs dating between May 03, 2024 and November 24, 2013. More remote prior studies are not currently available. No prior CT scan of the cervical spine. TECHNIQUE: CT of the head and cervical spine were performed without intravenous contrast. Multiplanar reformats were rendered and reviewed. This CT examination was performed using dose optimization techniques as appropriate, variously including the following: *Automated exposure control *Adjustment of mA and/or kV according to patient size (this includes techniques or standardized protocols for targeted exams where dose is matched to indication/reason for exam; i.e. extremities or head) *Use of iterative reconstruction technique DLP: 958 mGy-cm. FINDINGS: CT head: Limited by obliquity within the scanner and by beam hardening artifact. No gross intracranial hemorrhage, large infarction, or mass lesion is seen. No extra-axial collection is appreciated. The ventricles are normal in size and configuration without evidence of hydrocephalus. The mastoid air cells are clear. Left maxillary sinus mucosal thickening. Mild deviation of the nasal septum toward the left. CT cervical spine: The vertebral body heights appear maintained. No cervical spine fracture is seen. Multilevel disc degenerative change most notable at C4-C5. Multilevel neuroforaminal narrowing. Approximately 1-2 mm posterior subluxation of C3 on C4. Mild calcification of the carotid bulbs, right worse than left. The paraspinal soft tissues appear within normal limits. The partially imaged lung apices appear clear. CT/CT cervical spine wo IV con IMPRESSION: CT head: Limited. No gross acute intracranial finding. CT cervical spine: No cervical spine fracture or traumatic malalignment identified. Degenerative change. Electronically signed by: Eric Simeon MD 07/10/2024 01:40 PM EDT
--- NOTE | ~2024-07-10 | CT_ITS ---
EXAMINATION: CT HEAD WITHOUT CONTRAST CT CERVICAL SPINE WITHOUT CONTRAST CLINICAL INFORMATION: Fall. COMPARISON: Head CTs dating between May 03, 2024 and November 24, 2013. More remote prior studies are not currently available. No prior CT scan of the cervical spine. TECHNIQUE: CT of the head and cervical spine were performed without intravenous contrast. Multiplanar reformats were rendered and reviewed. This CT examination was performed using dose optimization techniques as appropriate, variously including the following: *Automated exposure control *Adjustment of mA and/or kV according to patient size (this includes techniques or standardized protocols for targeted exams where dose is matched to indication/reason for exam; i.e. extremities or head) *Use of iterative reconstruction technique DLP: 958 mGy-cm. FINDINGS: CT head: Limited by obliquity within the scanner and by beam hardening artifact. No gross intracranial hemorrhage, large infarction, or mass lesion is seen. No extra-axial collection is appreciated. The ventricles are normal in size and configuration without evidence of hydrocephalus. The mastoid air cells are clear. Left maxillary sinus mucosal thickening. Mild deviation of the nasal septum toward the left. CT cervical spine: The vertebral body heights appear maintained. No cervical spine fracture is seen. Multilevel disc degenerative change most notable at C4-C5. Multilevel neuroforaminal narrowing. Approximately 1-2 mm posterior subluxation of C3 on C4. Mild calcification of the carotid bulbs, right worse than left. The paraspinal soft tissues appear within normal limits. The partially imaged lung apices appear clear. CT/CT head/brain wo IV con IMPRESSION: CT head: Limited. No gross acute intracranial finding. CT cervical spine: No cervical spine fracture or traumatic malalignment identified. Degenerative change. Electronically signed by: Eric Simeon MD 07/10/2024 01:40 PM EDT
[2024-07-10 11:38] VITALS: BP 140/82; BP 170/90; PULSE 93; PULSE 96; RESP 18; TEMP 36.9; O2SAT 96; O2SAT 97; BMI 25.9
--- NOTE | 2024-07-10 12:04 | ED_ITS ---
HPI - Fall General Chief Complaint: Fall Stated Complaint: FALL WITH HEADSTRIKE Time Seen by Provider: 07/10/24 11:30 Source: patient, family ( Staff at the [facility]), EMS and legal mediator Mode of arrival: EMS Limitations: no limitations History of Present Illness ED Provider: DR. Caceres HPI Narrative: 74-year-old male with past medical history significant for mental disability, schizophrenia, stroke, DM to, Parkinson's disease, HTN, HLD, came in by EMS for evaluation after he had a mechanical fall witnessed by he staff, as the patient was getting help to get off the toilet by the staff patient fell forward on his left side hitting his head, no LOC, patient is acting his normal self no abnormal behavior. Related Data Home Medications ?Medication ?Instructions ?Recorded ?Confirmed lancets 28 gauge (Prodigy Twist #100 ea 08/12/22 05/18/24 Top Lancet) insulin glargine 100 unit/mL (3 4 unit subcut DAILY 01/09/23 05/18/24 mL) subcutaneous pen (Secret Labaglyuilop SL KwikPen U-100 Insulin) escitalopram oxalate 5 mg/5 mL 10 mg PO DAILY 07/24/23 05/18/24 oral solution olanzapine 10 mg tablet (Zyprexa) 10 mg PO BEDTIME 01/15/24 05/18/24 finasteride 5 mg tablet 5 mg PO DAILY 05/03/24 05/18/24 gabapentin 300 mg capsule 300 mg PO BEDTIME 05/03/24 05/18/24 Previous Rx's ?Medication ?Instructions ?Recorded mirtazapine 15 mg disintegrating 15 mg PO BEDTIME 90 days #90 tabs 01/01/22 tablet THICK IT #1 ea 02/01/22 compress.stocking,knee,reg,med #2 ea 04/05/22 PRODIGY LANCET #100 ea 08/09/22 BRIEF LArge #100 ea 11/21/22 divalproex 125 mg capsule,delayed 500 mg (4 x 125 mg) PO BID 90 days 09/16/23 release sprinkle #720 caps metformin 1,000 mg tablet 1,000 mg PO BID #180 tabs 09/16/23 diaper,brief,adult,disposable #120 ea 10/01/23 terazosin 10 mg capsule 10 mg PO BEDTIME 90 days #90 caps 10/01/23 topiramate 50 mg tablet (Topamax) 50 mg PO BID 90 days #180 tabs 12/02/23 blood sugar diagnostic (Prodigy No #100 ea 12/30/23 Coding strips) ROHO CUSHION #1 ea 04/20/24 WHEELCHAIR WITH CLIPBELT CLAMP #1 ea 04/20/24 HOOKS OR TIE DOWN gabapentin 100 mg capsule 100 mg PO TID PRN anxiety #1 cap 05/07/24 aspirin 81 mg chewable tablet 81 mg PO DAILY #90 tabs 05/18/24 (Aspirin Childrens) SHOWER/COMMODE CHAIR ON WHEELS #1 ea 06/02/24 chair with shoulder harness #1 ea 06/02/24 starch (thickening) (Diafoods See Rx Instructions PO .COMPLEX 30 06/02/24 Thick-It oral powder) days #850 grams collagenase clostridium histo. 250 1 appl topical DAILY PRN wound 06/07/24 unit/gram topical ointment (Santyl) care #30 grams swingway foot rest for wheelchair #2 ea 06/09/24 SHOWER CHAIR with ARMS #1 ea 06/09/24 atorvastatin 40 mg tablet (Lipitor) 40 mg PO BEDTIME #30 tabs 06/22/24 carbidopa 25 mg-levodopa 100 mg 2 tab PO QID #168 tabs 06/22/24 tablet levetiracetam 500 mg tablet 500 mg PO BID #60 tabs 06/22/24 (Keppra) lisinopril 10 mg tablet 10 mg PO DAILY #30 tabs 06/22/24 Allergies Allergy/AdvReac Type Severity Reaction Status Date / Time perfume Allergy Intermediate ITCHING Verified 07/10/24 11:42 Review of Systems 2 Review of Systems: all other systems are reviewed and are negative Constitutional: Reports as per HPI and Reports no additional constitutional complaints Eyes: Reports as per HPI and Reports no additional eye complaints Reports system reviewed and no additional complaints, except as documented Cardiovascular: Reports as per HPI and Reports no additional cardiovascular complaints Respiratory: Reports as per HPI and Reports no additional respiratory complaints Gastrointestinal: Reports as per HPI and Reports no additional gastrointestinal complaints Genitourinary: Reports no additional female genitourinary complaints Musculoskeletal: Reports no additional musculoskeletal complaints Skin/Breast: Reports system reviewed and no additional complaints, except as docu Psychiatric: Reports no additional psychiatric complaints Endocrine: Reports no additional endocrine complaints Hematologic/Lymphatic: Reports no additional hematologic/lymphatic complaints Allergic/Immunologic: Reports no additional allergic/immunologic complaints Reports system reviewed and no additional complaints, except as documented and Reports Abnormal speech present [facility] Past Medical History Medical History Headache Buttock wound Nausea & vomiting Hospital discharge follow-up Confusion Urinary incontinence Weakness of both lower limbs Screening for eye condition Type 2 diabetes mellitus with hyperglycemia, without long-term current use of insulin Diabetes type 2, uncontrolled Unsteady gait Subungual hematoma of great toe Rash Bruising Annual physical exam Pedal edema Oropharyngeal dysphagia Occipital infarction Tubular adenoma of colon Type 2 diabetes mellitus with hyperglycemia Dysphagia Vitamin D deficiency Parkinson's disease Developmental delay, moderate Hypercholesteremia Gastroesophageal reflux disease Hypertension Metabolic encephalopathy Schizophrenia Depression BPH with obstruction/lower urinary tract symptoms Surgical History History of circumcision History of prostate surgery History of colonoscopy Family History Family History Father Type II diabetes mellitus Mother Type II diabetes mellitus Social History Social History Household Members: Caregiver Housing: Assisted Living Facility Housing Other:: [facility] Do you presently have visiting nurse or other home services: Yes Unable to assess alcohol history related to: Unable to respond Alcohol intake: unknown Comment: caregiver in room Patient Tobacco Use Status: Never used Tobacco Smoked in Last 30 Days: No e-Cigarette/Vaping Use: Never Used Second Hand Smoke Exposure: No Use of substances other than those prescribed or required for medical reasons: No Advance Directives: No Advance Directives Information Provided: No Advance Directives Date on File: 07/11/21 service: No Current occupational status: disabled Current occupational exposures/hazards: No Cognitive needs: Yes Hearing needs: No Vision needs: No Physical Exam 2 Vital Signs: Vital Signs: Last Vital Signs Temp 98.5 F 07/10/24 11:38 Pulse 88 07/10/24 13:18 Resp 16 07/10/24 13:18 BP 118/67 07/10/24 13:18 Pulse Ox 98 07/10/24 13:18 O2 Del Method Room Air 07/10/24 13:18 BMI result Body Mass Index 25.9 Vital signs have been reviewed and appear to be correct. Blood pressure elevated. Heart rate normal. Respiratory rate normal. Temperature normal. Oxygen saturation normal. Appearance: Alert, awake, nonverbal Head: Normal external exam. Normocephalic. Atraumatic. No Maloney signs noted. No raccoon eyes noted Eyes: PERRLA. EOMI. Conjunctiva and sclera normal. Eyelids normal. ENT: TM's Normal. Pharynx normal. Uvula midline. Moist mucous membranes. No trismus noted. No drooling noted. No muffled voice noted. Neck: Normal inspection. Neck supple. FROM. No adenopathy. Thyroid Normal. No meningeal signs. No neck mass noted. CVS: Normal heart rate and rhythm. Heart sound normal. No murmurs noted. Pulses normal throughout. Respiratory: No respiratory distress. Painless inspiration. Breath sounds normal. No wheezes/rales/rhonchi noted. Chest nontender. No accessory muscle usage noted or decreased air movement noted. Abdomen: Soft and nontender. Bowel sounds normal in all 4 quadrants. No distention noted. No organomegaly noted. No visible injury noted. Back: No CVA tenderness. Full range of motion noted. Skin: Skin warm and dry. Normal skin color. Normal skin turgor. No rashes/lesions/lacerations noted. Extremities: No lower extremity edema. Extremities exhibit normal range of motion. Extremities nontender. Neuro: nonverbal. Cranial nerve exam: II-XII are grossly intact No motor deficit. No sensory deficit. Reflexes normal. Course Reevaluation(s) Reevaluation #1: 74-year-old male history of mental disability live at the [facility] has witnessed physical fall, negative workup in the emergency department will send back to the [facility]. as per the staff patient can not ambulate on his own. Time: 16:10 Medical Decision Making Differential Diagnosis Differential Diagnoses: The differential diagnosis associated with the presentation includes ( Intracranial bleed, cervical spine injury, electrolyte derangement, severe anemia.) Admission/Observation Consideration of admission/observation: Escalation of care including admission/observation considered Lab Data MDM Lab Attestation statement: I reviewed the patient's lab results. 07/10/24 12:49 07/10/24 12:48 Labs: Lab Results 07/10/24 07/10/24 Range/Units 12:48 12:49 WBC 6.1 (4.8-10.8) X10*3/uL RBC 3.81 L (4.60-5.80) X10*6/uL Hgb 12.2 L (14.0-18.0) g/dl Hct 37.1 L (42.0-52.0) % MCV 97.4 (80.0-98.0) fL MCH 32.0 (27.0-33.0) pg MCHC 32.9 (31.0-36.0) g/dl RDW 13.6 (11.0-16.0) % Plt Count 187 (160-400) X10*3/uL MPV 8.3 L (9.4-12.4) fL Immature Gran % (Auto) 0.5 H (0.0-0.4) % Neut % (Auto) 65.8 (45-73) % Lymph % (Auto) 19.5 L (20-40) % [place] % (Auto) 12.4 H (2-11) % Eos % (Auto) 1.3 (0-4) % Baso % (Auto) 0.5 (0-2) % Lymph # (Auto) 1.2 (1.2-4.9) X10*3/uL [place] # (Auto) 0.8 (0.1-1.2) X10*3/uL Eos # (Auto) 0.1 (0.0-0.4) X10*3/uL Baso # (Auto) 0.0 (0.0-0.2) X10*3/uL Abs Immat Gran (auto) 0.03 (0.00-0.03) X10*3/uL Absolute Neuts (auto) 4.0 (2.0-8.3) x10*3/uL Absolute Nucleated RBC 0.000 (0.0-0.012) X10*3/uL Nucleated RBC % (auto) 0.0 (0.0-0.2) /100WBC Sodium 142 (135-145) mmol/L Potassium 4.4 (3.3-5.1) mmol/L Chloride 107 (96-108) mmol/L Carbon Dioxide 22 (22-29) mmol/L Anion Gap 17 (12-20) BUN 26 H (9-16) mg/dL Creatinine 0.81 (0.5-1.4) mg/dL Estim Creat Clear Calc 65.9 Estimated GFR > 60 Random Glucose 98 (60-115) mg/dL Calcium 9.0 (8.4-10.2) mg/dL Troponin I High Sens < 2.7 (<3.5-35.0) ng/L Independent Interpretation I performed an independent interpretation of an: CT Scan ( Head/cervical spine CT: No acute injury.) Radiology Impression Discussion of test interpretation with radiology: I have reviewed the radiologist's reading. Discharge Plan Discharge Clinical Impression: Accident due to mechanical fall without injury Patient Disposition: Home, Self-Care Instructions: Fall Prevention (ED) Prescriptions: No Action mirtazapine 15 mg tablet,disintegrating 15 mg PO BEDTIME 90 Days Qty: 90 2RF (DME) THICK IT See Rx Instructions .Route .MEDSUPPLY Qty: 1 0RF Rx Instructions: As directed (DME) PRODIGY LANCET See Rx Instructions .Route .MEDSUPPLY Qty: 100 12RF Rx Instructions: As directed divalproex 125 mg capsule, delayed rel sprinkle 500 mg PO BID 90 Days Qty: 720 2RF metformin 1,000 mg tablet 1,000 mg PO BID Qty: 180 3RF topiramate [Topamax] 50 mg tablet 50 mg PO BID 90 Days Qty: 180 2RF Rx Instructions: crush and mix with soft foods (DME) Prodigy No Coding Strip See Rx Instructions .Route Qty: 100 6RF Rx Instructions: Test 3 times daily (DME) ROHO CUSHION See Rx Instructions .Route .MEDSUPPLY Qty: 1 0RF Rx Instructions: As directed (DME) WHEELCHAIR WITH CLIPBELT CLAMP HOOKS OR TIE DOWN See Rx Instructions .Route .MEDSUPPLY Qty: 1 0RF Rx Instructions: As directed aspirin [Aspirin Childrens] 81 mg tablet,chewable 81 mg PO DAILY Qty: 90 0RF Santyl 250 unit/gram ointment 1 appl topical DAILY PRN (Reason: wound care) Qty: 30 4RF Rx Instructions: Bilateral 1 cm gluteal area desquamation with Thin layer daily AM (DME) SHOWER CHAIR with ARMS See Rx Instructions .Route .MEDSUPPLY Qty: 1 0RF Rx Instructions: shower chair w/ arms and swingway foot rest for wheelchair (DME) swingway foot rest for wheelchair See Rx Instructions .Route .MEDSUPPLY Qty: 2 0RF Rx Instructions: shower chair w/ arms and swingway foot rest for wheelchair lisinopril 10 mg tablet 10 mg PO DAILY Qty: 30 0RF atorvastatin [Lipitor] 40 mg tablet 40 mg PO BEDTIME Qty: 30 0RF carbidopa-levodopa 25-100 mg tablet 2 tab PO QID Qty: 168 0RF Rx Instructions: 37.5 - 150 mg to be taken 4 times a day levetiracetam [Keppra] 500 mg tablet 500 mg PO BID Qty: 60 0RF escitalopram oxalate 5 mg/5 mL solution 10 mg PO DAILY insulin glargine [Basaglar KwikPen U-100 Insulin] 100 unit/mL (3 mL) insulin pen 4 unit subcut DAILY gabapentin 300 mg Capsule 300 mg PO BEDTIME finasteride 5 mg tablet 5 mg PO DAILY gabapentin 100 mg capsule 100 mg PO TID PRN (Reason: anxiety) Qty: 1 0RF (DME) compress.stocking,knee,reg,med Misc See Rx Instructions .Route Qty: 2 0RF Rx Instructions: As directed 20-30 mm HG olanzapine [Zyprexa] 10 mg tablet 10 mg PO BEDTIME (DME) SHOWER/COMMODE CHAIR ON WHEELS See Rx Instructions .Route .MEDSUPPLY Qty: 1 0RF Rx Instructions: As directed (DME) chair with shoulder harness See Rx Instructions .Route .MEDSUPPLY Qty: 1 0RF Rx Instructions: As directed (DME) BRIEF LArge See Rx Instructions .Route .MEDSUPPLY Qty: 100 11RF Rx Instructions: As directed Diafoods Thick-It Powder See Rx Instructions PO .COMPLEX 30 Days Qty: 850 12RF Rx Instructions: mix 4-5 tsp of thick to every 4 ounces of liquid every meal orally; (DME) lancets [Prodigy Twist Top Lancet] 28 gauge misc See Rx Instructions .ROUTE .MEDSUPPLY Qty: 100 Rx Instructions: As directed terazosin 10 mg capsule 10 mg PO BEDTIME 90 Days Qty: 90 3RF Rx Instructions: open capsule and mix with soft foods (DME) diaper,brief,adult,disposable Misc See Rx Instructions .ROUTE .MEDSUPPLY Qty: 120 11RF Rx Instructions: As directed - 4x a day Print Language: Amharic
[2024-07-10 12:54] LABS: MANUAL DIFF FLAG NO
[2024-07-10 12:56] LABS: Basophils Percent Auto 0.5 % (0-2); Eosinophils Absolute Auto 0.1 X10*3/uL (0.0-0.4); Eosinophils Percent Auto 1.3 % (0-4); Hematocrit 37.1 % (42.0-52.0); Hemoglobin 12.2 g/dl (14.0-18.0); Imm Gran Abs Auto 0.03 X10*3/uL (0.00-0.03); Imm Gran Pct Auto 0.5 % (0.0-0.4); Lymphocytes Absolute Auto 1.2 X10*3/uL (1.2-4.9); Lymphocytes Percent Auto 19.5 % (20-40); Mean Corpuscular HGB Conc 32.9 g/dl (31.0-36.0); Mean Corpuscular Volume 97.4 fL (80.0-98.0); Mean Platelet Volume 8.3 fL (9.4-12.4); Monocytes Absolute Auto 0.8 X10*3/uL (0.1-1.2); Monocytes Percent Auto 12.4 % (2-11); Neutrophils Percent Auto 65.8 % (45-73); Platelet Count 187 X10*3/uL (160-400); Red Blood Count 3.81 X10*6/uL (4.60-5.80); Red Cell Distribution Width 13.6 % (11.0-16.0); White Blood Count 6.1 X10*3/uL (4.8-10.8)
[2024-07-10 13:13] LABS: Anion Gap 17 (12-20); Blood Urea Nitrogen 26 mg/dL (9-16); Carbon Dioxide 22 mmol/L (22-29); Chloride 107 mmol/L (96-108); Creatinine Clr Calc Pharmacy 65.9; Estimated Glomerular Filt Rate > 60; Glucose Random 98 mg/dL (60-115); Potassium 4.4 mmol/L (3.3-5.1); Sodium 142 mmol/L (135-145)
[2024-07-10 13:18] VITALS: BP 118/67; PULSE 88; RESP 16; O2SAT 98
[2024-07-10 13:29] LABS: Troponin-I High Sensitivity < 2.7 ng/L (<3.5-35.0)
[2024-07-10 17:43] VITALS: BP 171/78; PULSE 92; RESP 14; TEMP 36.2; O2SAT 95
--- NOTE | 2024-07-10 17:44 | PC.NURSE ---
report given to ems, patient to go back to [facility], [facility] staff at bedside, taking wheelchair home
== END 2024-07-10 17:45 | disposition home or self-care (01) ==
PROVIDERS: Emergency Provider Emergency Medicine; PCP Internal Medicine
DX: Z03.89 Encounter for observation for other suspected diseases and conditions ruled out (principal); Z91.81 History of falling
CPT/HCPCS: 36415; 70450; 72125; 80048; 84484; 85025; 99284

== ENCOUNTER 2024-07-20 13:39 | Outpatient (AMB) | payer MEDICARE, MEDICAID, SELFPAY ==
[2024-07-20 13:45] VITALS: BP 110/64; PULSE 99; O2SAT 96
--- NOTE | 2024-07-20 13:45 | A.OFFPC_ITS ---
Vital Signs 07/20/24 13:45 Height 5 ft 4 in BMI Reason not done Patient refused/unable BP 110/64 Blood Pressure Location Lt brachial Position Sitting Pulse 99 Pulse Source Pulse Oximeter Pulse Oximetry (%) 96 Oxygen Delivery Method Room Air Intake Visit Reasons: [facility] 07/10 Fall Intake Note: Patient is here for hospital discharge follow up. Patient was [place] [facility] [place]24 Allergies perfume Allergy (Intermediate, Verified 07/20/24 13:45) ITCHING Medication List - Last Reconciled 07/20/24 by Staci Liang PA-C [swingway foot rest for wheelchair shower chair w/ arms and swingway foot rest for wheelchair] aspirin (Aspirin Childrens) 81 mg PO DAILY atorvastatin (Lipitor) 40 mg PO BEDTIME blood sugar diagnostic ([employer] No Coding strips) Test 3 times daily [BRIEF LArge As directed] carbidopa-levodopa 25-100 mg 2 tabs PO QID [chair with shoulder harness As directed] collagenase clostridium histo. (Santyl) 1 appl topical DAILY PRN compress.stocking,knee,reg,med As directed 20-30 mm HG diaper,brief,adult,disposable As directed - 4x a day divalproex 500 mg (4 x 125 mg) PO BID 90 days escitalopram oxalate 10 mg PO DAILY finasteride 5 mg PO DAILY gabapentin 300 mg PO BEDTIME gabapentin 100 mg PO TID PRN insulin glargine (Basaglar KwikPen U-100 Insulin) 4 units subcut DAILY lancets (Prodigy Twist Top Lancet) As directed levetiracetam (Keppra) 500 mg PO BID lisinopril 10 mg PO DAILY metformin 1,000 mg PO BID mirtazapine 15 mg PO BEDTIME 90 days olanzapine (Zyprexa) 10 mg PO BEDTIME [PRODIGY LANCET As directed] [ROHO CUSHION As directed] [SHOWER CHAIR with ARMS shower chair w/ arms and swingway foot rest for wheelchair] [SHOWER/COMMODE CHAIR ON WHEELS As directed] starch (thickening) ([employer] Thick-It oral powder) mix 4-5 tsp of thick to every 4 ounces of liquid every meal orally; 30 days terazosin 10 mg PO BEDTIME 90 days [THICK IT As directed] topiramate (Topamax) 50 mg PO BID 90 days [WHEELCHAIR WITH CLIPBELT CLAMP HOOKS OR TIE DOWN As directed] Tobacco use date assessed: 10/09/23 Fall risk assessment: 2 + Falls in past year Last assessed Fall Risk: 07/20/24 Dental Screening Dental Screen Date: 03/25/24 [facility] 07/10 Fall HPI Details 74-year-old overweight male with schizop hrenia, hypertension, GERD, hypercholesterolemia, BPH, controlled diabetes mellitus, history of TIA, peripheral vascular disease, parkinsonism coming in for hospital follow-up.? In review of the notes, patient was seen in [facility] 07/10/2024 after mechanical fall negative workup in the ER and [facility] to [facility].? Patient was also seen in the ED 07/05/2024 after a witnessed choking episode labs reassuring and chest x-ray negative discharged home. Patient presents today with representatives from his [facility]. They state it is typical for him to cough while he eats because he often tries to speak with food in his mouth. His fall that brought him to the hospital was off the toilet and he in his head in the shower. He did not have any dizziness, lightheadedness or chest pain prior to the fall. He has had decreased energy and progressive weakness which has been going on for several months but more recently in the last week. He has been having some left leg weakness as well as rigidity. When going from standing to sitting he often keeps his leg straight and we will fall backwards instead of lowering himself down. Also has been having foul-smelling dark urine. [facility] Medical History Headache Buttock wound Nausea & vomiting Hospital discharge follow-up Confusion Urinary incontinence Weakness of both lower limbs Screening for eye condition Type 2 diabetes mellitus with hyperglycemia, without long-term current use of insulin Diabetes type 2, uncontrolled Unsteady gait Subungual hematoma of great toe Rash Bruising Annual physical exam Pedal edema Oropharyngeal dysphagia Occipital infarction Tubular adenoma of colon Type 2 diabetes mellitus with hyperglycemia Dysphagia Vitamin D deficiency Parkinson's disease Developmental delay, moderate Hypercholesteremia Gastroesophageal reflux disease Hypertension Metabolic encephalopathy Schizophrenia Depression BPH with obstruction/lower urinary tract symptoms Surgical History History of circumcision History of prostate surgery History of colonoscopy Family History Father Type II diabetes mellitus Mother Type II diabetes mellitus Social History Household Members: Caregiver Housing: Assisted Living Facility Housing Other:: [facility] Do you presently have visiting nurse or other home services: Yes Unable to assess alcohol history related to: Unable to respond Alcohol intake: unknown Comment: caregiver in room Patient Tobacco Use Status: Never used Tobacco e-Cigarette/Vaping Use: Never Used Second Hand Smoke Exposure: No Advance Directives Date on File: 07/11/21 service: No Current occupational status: disabled Current occupational exposures/hazards: No Cognitive needs: Yes Hearing needs: No Vision needs: No Questionnaire Thrive Questionnaire Date Thrive assessed: 05/04/24 AUDIT C Alcohol Use Questionnaire (AUDIT-C) 1. How often do you have a drink containing alcohol?: Never 3. How often do you have six or more drinks on one occasion?: Never Total Score: 0 Score Reviewed/Action Taken: No NAVIN-7 AMB Questionnaire NAVIN-7 Date NAVIN - 7 assessed: 10/09/23 Source: Developed by Drs. Ran Nieves, Bertha Lao, Natanael Chen and colleagues, with an educational sanford from [employer]. Review of Systems Const Denies fever(s) Eyes Reports no additional complaints ENT Reports dysphagia and Denies dizziness Card Denies chest pain, Denies edema, Denies lightheadedness and Denies dyspnea Resp Reports cough and Denies dyspnea GI Reports no additional complaints and Reports dysphagia Reports as per HPI Musc Reports no additional complaints Skin/Breast Reports system reviewed and no additional complaints, except as documented Neuro Denies dizziness Psych Reports no additional complaints Physical exam (Primary Care) Vital Signs: Last Vital Signs Pulse 99 07/20/24 13:45 BP 110/64 07/20/24 13:45 Pulse Ox 96 07/20/24 13:45 Oxygen Delivery Method Room Air 07/20/24 13:45 Tobacco/Smoking Status: Tobacco use Status Tobacco use date assessed 10/09/23 07/20/24 13:51 Patient Tobacco Use Status Never used Tobacco 07/20/24 13:51 e-Cigarette/Vaping Use Never Used 07/20/24 13:51 Thrive Assessment: Date of Thrive Assessment Date Thrive assessed 05/04/24 07/20/24 13:51 Const General: cooperative, healthy appearing, comfortable and no acute distress Orientation/consciousness: patient oriented x3 HENMT Head: Yes normocephalic Ears: hearing grossly normal bilaterally General nose exam: Normal external nose present Eyes General: appearance normal, both eyes and all related structures Conjunctivae: conjunctivae normal Neck Neck: Yes full ROM and Yes no lymphadenopathy Resp Effort & Inspection: normal respiratory effort Auscultation: clear to auscultation bilaterally, no crackles, no rales, no rhonchi and no wheezes Cardio Rate: regular rate Rhythm: regular rhythm Skin General skin exam: no rashes or lesions noted Neuro General: patient oriented x3 Gait exam (Neuro): Assisted gait required (Primarily wheelchair) Gait assisted method: wheelchair bound Extrem Other: Difficult to assess extremity weakness due to inability to follow directions. 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 mellitus long wall shear operator insulin use: with custodial use TIA (transient ischemic attack) G45.9 Hypercholesteremia E78.00 Gastroesophageal reflux disease without esophagitis K21.9 Esophagitis presence: without esophagitis Primary hypertension I10 Hypertension type: primary hypertension Schizophrenia F20.3 Schizophrenia type: undifferentiated schizophrenia Foul smelling urine R82.90 Assessment & Plan Assessment & Plan (1) Lower extremity weakness: Code(s): R29.898 - Other symptoms and signs involving the musculoskeletal system Category: Medical Plan: Observed lower extremity weakness by [facility] staff however difficult to assess during the exam today. Patient is on aspirin and atorvastatin status post TIA and recently had negative head CT. Management would not change based on further imaging. Discussed this is most likely related to progressive parkinsonism and no imaging is indicated at this time. Continue to monitor symptoms. (2) Gait instability: Code(s): R26.81 - Unsteadiness on feet Category: Medical Plan: Patient primarily uses different wheelchair to ambulate around the house and outside of the house. Discussed environmental factors to prevent further falls such as grab bars and assistive devices. (3) Type 2 diabetes mellitus with hyperglycemia: Code(s): E11.65 - Type 2 diabetes mellitus with hyperglycemia Category: Medical Qualifiers: Diabetes mellitus custodial insulin use: with long wall shear operator use Qualified Code(s): E11.65 - Type 2 diabetes mellitus with hyperglycemia; Z79.4 - long term acute care registered nurse (current) use of insulin Plan: Decrease the amount of carbohydrates such as pasta, bread, rice, and potatoes and limit the amount of sweets. Although fruits are generally healthy they should be eaten in moderation as they are still high in sugar. Hemoglobin A1c goal of less than 7%. (4) TIA (transient ischemic attack): Code(s): G45.9 - Transient cerebral ischemic attack, unspecified Category: Medical Plan: Continue on aspirin and atorvastatin and continue with good blood pressure control. (5) Hypercholesteremia: Code(s): E78.00 - Pure hypercholesterolemia, unspecified Category: Medical Plan: Avoid foods that are high in cholesterol such as red meat, fried foods, eggs and baked goods. Triglyceride goal of less than 150 and LDL goal of less than 70. Continue on atorvastatin (6) Gastroesophageal reflux disease: Code(s): K21.9 - Gastro-esophageal reflux disease without esophagitis Category: Medical Qualifiers: Esophagitis presence: without esophagitis Qualified Code(s): K21.9 - Gastro-esophageal reflux disease without esophagitis Plan: Avoid trigger foods such as citrus, tomato products, soda, caffeine, spicy foods and other foods that may be irritating to your stomach. Avoid laying flat 3-4 hours after eating and elevate the head of the bed 30 degrees to prevent acid from moving into the esophagus. (7) Hypertension: Comment: Echo normal ejection fraction with impaired relaxation April 2020 Code(s): I10 - Essential (primary) hypertension Category: Medical Qualifiers: Hypertension type: primary hypertension Qualified Code(s): I10 - Essential (primary) hypertension Plan: Continue on current blood pressure medication. Avoid salt intake and encourage healthy diet and regular exercise. (8) Schizophrenia: Comment: Dr. Duffy; 20 min reviewing chart evaluating patient and documenting Code(s): F20.9 - Schizophrenia, unspecified Category: Medical Qualifiers: Schizophrenia type: undifferentiated schizophrenia Qualified Code(s): F20.3 - Undifferentiated schizophrenia Plan: Continue to follow with psych. (9) Foul smelling urine: Code(s): R82.90 - Unspecified abnormal findings in urine Category: Medical Plan: Ordered for urinalysis and gave patient take home cup for urine sample. Discussed this may be related to dehydration advised to increase fluid intake as tolerated by the patient. Plan This note was constructed using voice recognition software. While every effort has been made to ensure accuracy and cleaning machine operator, still areas may have been included sometimes these areas may affect the content or meeting of the given symptoms. Total time spent caring for the patient today was 30 minutes. This includes time spent before the visit reviewing the chart, time spent during the visit, and time spent after the visit and documentation. Orders: Orders UA CC w/rflx Micro + Cult Today R35.89 - Other polyuria
== END 2024-07-20 14:44 | disposition home or self-care (01) ==
PROVIDERS: PCP Internal Medicine
DX: E11.65 Type 2 diabetes mellitus with hyperglycemia (principal); Z79.4 Long term (current) use of insulin; F20.3 Undifferentiated schizophrenia; R29.898 Other symptoms and signs involving the musculoskeletal system; R26.81 Unsteadiness on feet; G45.9 Transient cerebral ischemic attack, unspecified; E78.00 Pure hypercholesterolemia, unspecified; K21.9 Gastro-esophageal reflux disease without esophagitis; I10 Essential (primary) hypertension; R82.90 Unspecified abnormal findings in urine

== ENCOUNTER → 2024-07-20 13:39 | Outpatient (BNVA) | payer MEDICARE, MEDICAID, SELFPAY | PROVIDERS: PCP Internal Medicine | DX: R29.898 Other symptoms and signs involving the musculoskeletal system (principal); R26.81 Unsteadiness on feet; E11.65 Type 2 diabetes mellitus with hyperglycemia; E78.00 Pure hypercholesterolemia, unspecified; K21.9 Gastro-esophageal reflux disease without esophagitis; I10 Essential (primary) hypertension; F20.3 Undifferentiated schizophrenia; R82.90 Unspecified abnormal findings in urine; Z86.73 Personal history of transient ischemic attack (TIA), and cerebral infarction without residual deficits; Z79.4 Long term (current) use of insulin; Z79.82 Long term (current) use of aspirin; Z79.899 Other long term (current) drug therapy | CPT/HCPCS: 99212 ==

== ENCOUNTER 2024-08-04 10:19 | Outpatient (AMB) | payer MEDICARE, MEDICAID, SELFPAY ==
--- NOTE | 2024-08-04 10:25 | AM.OFFWIN_ITS ---
Intake Vital Signs 3 08/04/24 10:35 BMI Reason not done Patient refused/unable BP 120/76 Blood Pressure Location Rt brachial Position Sitting Pulse 81 Pulse Source Pulse Oximeter Pulse Oximetry (%) 98 Oxygen Delivery Method Room Air Intake Visit Reasons: EP- RT side buttocks wound Intake Note: Patient here for sore on right buttocks wound that has been present for about 1 year. the last two weeks it has been bleeding a lot more Patient Tobacco Use Status: Never used Tobacco Allergies perfume Allergy (Intermediate, Verified 08/04/24 10:32) ITCHING Do you need a note to return to daycare/school/sports/work: No HPI HPI Comments 2 History of Present Illness0 Details Patient is a 74-year-old male here with his to halfway workers complaining of a wound on his left buttocks. They state it has been there for a year but it broke open and has been bleeding recently. They tell me his PCP is working on getting him wound care. They state they have been trying to get him to spend less time sitting. He does use a pad in his wheelchair. They have been using Desitin cream on it [facility] Medical History Headache Buttock wound Nausea & vomiting Hospital discharge follow-up Confusion Urinary incontinence Weakness of both lower limbs Screening for eye condition Type 2 diabetes mellitus with hyperglycemia, without long-term current use of insulin Diabetes type 2, uncontrolled Unsteady gait Subungual hematoma of great toe Rash Bruising Annual physical exam Pedal edema Oropharyngeal dysphagia Occipital infarction Tubular adenoma of colon Type 2 diabetes mellitus with hyperglycemia Dysphagia Vitamin D deficiency Parkinson's disease Developmental delay, moderate Hypercholesteremia Gastroesophageal reflux disease Hypertension Metabolic encephalopathy Schizophrenia Depression BPH with obstruction/lower urinary tract symptoms Surgical History History of circumcision History of prostate surgery History of colonoscopy Family History Father Type II diabetes mellitus Mother Type II diabetes mellitus Social History Household Members: Caregiver Housing: Assisted Living Facility Housing Other:: [facility] Do you presently have visiting nurse or other home services: Yes Unable to assess alcohol history related to: Unable to respond Alcohol intake: unknown Comment: caregiver in room Patient Tobacco Use Status: Never used Tobacco e-Cigarette/Vaping Use: Never Used Second Hand Smoke Exposure: No Advance Directives Date on File: 07/11/21 service: No Current occupational status: disabled Current occupational exposures/hazards: No Cognitive needs: Yes Hearing needs: No Vision needs: No Review of Systems Const All systems reviewed & are unremarkable except as noted in HPI and below Physical Exam Vital Signs: Last Vital Signs Pulse 81 08/04/24 10:35 BP 120/76 08/04/24 10:35 Pulse Ox 98 08/04/24 10:35 Oxygen Delivery Method Room Air 08/04/24 10:35 Const General: cooperative, comfortable and no acute distress Limitations: altered mental status (baseline ) and wheelchair HEENT Head: Yes normal to inspection Neck Neck: Yes normal visual inspection and Yes supple Skin Full body images: 2 1. stage 2 pressure ulcer, some erythema, no active bleeding, no warmth, no ecchymosis Assessment & Plan Assessment & Plan (1) Pressure ulcer: Code(s): L89.90 - Pressure ulcer of unspecified site, unspecified stage Qualifiers: Pressure injury location: buttock Pressure injury stage: stage 2 L aterality: right Qualified Code(s): L89.312 - Pressure ulcer of right buttock, stage 2 Plan: Applied Xeroform dressing with nonadhesive pad and Tegaderm over ulcer. Recommend they change it every 48-72 hours and continue to pursue wound care with his PCP. Gave them supplies to last the next week so they can have time to purchase more supplies. Recommended they continue to try to have him lay on his side or his belly and spend less time sitting. Plan see above Coding Level of Care Code Est Pt Level 4 (87937) Diagnoses Pressure injury of right buttock, stage 2 L89.312 Pressure injury location: buttock Pressure injury stage: stage 2 Laterality: right
[2024-08-04 10:35] VITALS: BP 120/76; PULSE 81; O2SAT 98
== END 2024-08-04 11:21 | disposition home or self-care (01) ==
PROVIDERS: PCP Internal Medicine; Visit Provider Physician Assistant
DX: L89.312 Pressure ulcer of right buttock, stage 2 (principal)

== ENCOUNTER → 2024-08-04 10:19 | Outpatient (BNVA) | payer MEDICARE, MEDICAID, SELFPAY | PROVIDERS: PCP Internal Medicine; Visit Provider Physician Assistant | DX: L89.312 Pressure ulcer of right buttock, stage 2 (principal) | CPT/HCPCS: 99212 ==

== ENCOUNTER 2024-08-18 10:00 | Emergency (ER) | payer MEDICARE, MEDICAID, SELFPAY ==
--- NOTE | ~2024-08-18 | XR_ITS ---
EXAMINATION: XR CHEST CLINICAL INFORMATION: weakness, dizziness COMPARISON: 07/05/2024 TECHNIQUE: Frontal view of the chest was obtained. FINDINGS: There are low lung volumes, but No significant abnormality is noted involving the heart, lungs, mediastinum, bony thorax or soft tissues. XR/XR chest 1V IMPRESSION: Unremarkable examination. Electronically signed by: Hector Mobley MD 08/18/2024 11:31 AM [facility] [place]
--- NOTE | ~2024-08-18 | CT_ITS ---
EXAMINATION: CT FACIAL BONES WITHOUT CONTRAST CLINICAL INFORMATION: Status post fall. Injury to face. COMPARISON: None available. TECHNIQUE: Contiguous axial images through the maxillofacial bones using 1.5 and 3.0 mm collimation with bone and soft tissue algorithm. Sagittal and coronal reformatted images acquired. This CT examination was performed using dose optimization techniques as appropriate, variously including the following: *Automated exposure control *Adjustment of mA and/or kV according to patient size (this includes techniques or standardized protocols for targeted exams where dose is matched to indication/reason for exam; i.e. extremities or head) *Use of iterative reconstruction technique DLP: 373 mGy-cm FINDINGS: Limited by patient's motion artifact. Cortical irregularities in the nasal bones. Nasal septum and vomer are grossly intact. Left parasagittal spur, nasal septum. The orbital rims are intact. The choroidal fissures and orbital apices are intact. No hematoma, intraconal or extraconal compartments of the orbits. The eyeballs are intact. Soft tissue contusion/hematoma in the right maxillary fat planes anterior lateral and inferior to the right zygomatic arch. The zygomatic arch are intact bilaterally. The maxilla and pterygoid plates are intact. The mandible is intact. The temporomandibular joints are intact and well articulated. Polypoid mucosal thickening, left maxillary sinus. No air-fluid levels in the paranasal sinuses. Tympanic cavities and mastoid cells are aerated. Pneumatized left petrous apex, congenital. Vascular calcifications in the carotid arteries. Edentulus .maxilla and mandible. CT/CT facial bones wo IV con IMPRESSION: Soft tissue contusion/hematoma right maxillary. No acute maxillofacial bone fracture. Probable old traumatic deformity, nasal bones. Electronically signed by: Mike Sutton MD 08/18/2024 11:47 AM EST
--- NOTE | ~2024-08-18 | CT_ITS ---
EXAMINATION: CT HEAD WITHOUT CONTRAST CLINICAL INFORMATION: pain, injury COMPARISON: CT dated July 10, 2024 TECHNIQUE: Contiguous axial imaging was performed from the skull base to vertex without intravenous administration of contrast. This CT examination was performed using dose optimization techniques as appropriate, variously including the following: *Automated exposure control *Adjustment of mA and/or kV according to patient size (this includes techniques or standardized protocols for targeted exams where dose is matched to indication/reason for exam; i.e. extremities or head) *Use of iterative reconstruction technique DLP: 1650 mGy-cm FINDINGS: Limited by patient's motion artifact. There is an extra-axial mixed isointense to hyperintense attenuation along the right frontotemporal parietal convexity measuring no more than 1.6 cm resulting in the CSF effacement of the right cerebral sulci. There is a 3 mm right to left subfalcine herniation. There is no hydrocephalus. There is no downward herniation. No acute intraparenchymal hemorrhage. There is a 0.6 cm extra-axial CSF equivalent abnormality along the left parietal convexity without mass effect. There is a 3 mm maximum thickness hyperdensity in the extra-axial compartment along the falx and extending into the right tentorium. No acute intra-axial hemorrhage. Bazan-white matter differentiation is normal. Small cavum septum callosum. Bony calvarium is intact. Old traumatic deformity nasal bones. Skull base is intact. Soft tissue contusion and right maxillary. Polypoid mucosal thickening left maxillary sinus. No air-fluid levels in the paranasal sinuses. Tympanic cavities and mastoid cells are aerated. Pneumatized left petrous apex.. CT/CT head/brain wo IV con IMPRESSION: Acute to subacute, 1.6 cm maximal thickness, right-sided subdural hemorrhage with mass effect upon the right hemisphere causing 3 mm right to left subfalcine herniation. No hydrocephalus or downward herniation. Acute subdural hemorrhage, right tentorium and falx. Subacute to old subdural hemorrhage, left parietal convexity. No acute fracture, bony calvarium. Discussed with Ely Joseph at 11:50 AM Electronically signed by: Mike Sutton MD 08/18/2024 11:56 AM [facility] [place]
--- NOTE | ~2024-08-18 | CT_ITS ---
EXAMINATION: CT CERVICAL SPINE WITHOUT CONTRAST CLINICAL INFORMATION: Status post fall. COMPARISON: CT dated July 10, 2024 TECHNIQUE: Contiguous axial images through the cervical spine using 0.6 and 2.0 mm collimation with bone and soft tissue algorithm. Sagittal and coronal reformatted images acquired. This CT examination was performed using dose optimization techniques as appropriate, variously including the following: *Automated exposure control *Adjustment of mA and/or kV according to patient size (this includes techniques or standardized protocols for targeted exams where dose is matched to indication/reason for exam; i.e. extremities or head) *Use of iterative reconstruction technique DLP: 316 mGy-cm FINDINGS: Craniocervical junction is intact. C1 is intact. C2 is intact. C3 is intact. C4 is intact. C5 is intact. C6 is intact. C7 is intact. No gross hematoma, prevertebral compartment. Multilevel syndesmophyte formation, marginal osteophyte formation, endplate sclerosis, subchondral cyst formation and decreased intervertebral disc height C3 C7. Grade 1 retrolisthesis C3-4. Hypertrophy of the facet joints bilaterally.. Vascular complications in the carotid arteries. Tympanic cavities and mastoid cells are aerated. Pneumatized left petrous apex. CT/CT cervical spine wo IV con IMPRESSION: Multilevel cervical spondylosis C3 C7 resulting in grade 1 retrolisthesis C3-4 without acute fracture or trauma-related listhesis. Fleischner guidelines were followed. Electronically signed by: Mike Sutton MD 08/18/2024 12:04 PM [facility]
--- NOTE | ~2024-08-18 | XR_ITS ---
EXAMINATION: XR HAND, LEFT CLINICAL INFORMATION: pain, injury COMPARISON: None available. TECHNIQUE: PA, lateral, and oblique views of the left hand. FINDINGS: The digits are held in flexion on all images limiting evaluation. No acute fracture or subluxation is detected. XR/XR hand LT min 3V IMPRESSION: No detected fracture or subluxation. Electronically signed by: Hector Mobley MD 08/18/2024 11:34 AM EST
[2024-08-18 10:06] VITALS: BP 144/66; PULSE 84; O2SAT 99
[2024-08-18 10:10] VITALS: BP 161/70; PULSE 89; RESP 16; TEMP 37; O2SAT 99; BMI 26.6
--- NOTE | 2024-08-18 10:11 | ED_ITS ---
HPI - General Adult General Chief complaint: Fall Stated complaint: FALL FROM CHAIR,LT HAND PAIN,-LOC,-HS PER EMS Time Seen by Provider: 08/18/24 10:10 Source: patient, EMS and miller head (all interactions with this patient were facilitated with an [facility] [place] dish) Mode of arrival: EMS Limitations: language barrier (all interactions with this patient were facilitated with an [facility] [place] dish) History of Present Illness ED Provider: Ely Joseph PA-C HPI narrative: Patient is a 74 year old assigned male at with a history of intellectual disability, schizophrenia, dysphagia, CVA, GERD, IBS, DM, mood disorder, HTN, and medication induced parkinson like symptoms presenting to the emergency department today after a fall. Patient states that last night he was feeling dizzy and this morning he fell out of his wheel chair. SNF staff states that the patient was found prone next to his wheel chair after his chair alarm started going off. Patient denies any lightheadedness, abdominal pain, nausea, vomiting, fever, chills, blurry vision, double vision, loss of vision, chest pain, difficulty breathing, shortness of breath, back pain, night sweats, pain with urination, increased urinary frequency, increased urinary urgency, blood in his urine or stool, syncope or a near syncopal episode, bowel incontinence, bladder incontinence, or any other complaints at this time. Relieving factors: none Exacerbating factors: none Associated symptoms: denies other symptoms Treatments prior to arrival: none Related Data Home Medications ?Medication ?Instructions ?Recorded ?Confirmed lancets 28 gauge (Prodigy Twist #100 ea 08/12/22 07/20/24 Top Lancet) escitalopram oxalate 5 mg/5 mL 10 mg PO DAILY 07/24/23 07/20/24 oral solution olanzapine 10 mg tablet (Zyprexa) 10 mg PO BEDTIME 01/15/24 07/20/24 gabapentin 300 mg capsule 300 mg PO BEDTIME 05/03/24 07/20/24 mirtazapine 15 mg tablet 15 mg PO BEDTIME 08/04/24 Previous Rx's ?Medication ?Instructions ?Recorded mirtazapine 15 mg disintegrating 15 mg PO BEDTIME 90 days #90 tabs 01/01/22 tablet THICK IT #1 ea 02/01/22 compress.stocking,knee,reg,med #2 ea 04/05/22 PRODIGY LANCET #100 ea 08/09/22 BRIEF LArge #100 ea 11/21/22 divalproex 125 mg capsule,delayed 500 mg (4 x 125 mg) PO BID 90 days 09/16/23 release sprinkle #720 caps metformin 1,000 mg tablet 1,000 mg PO BID #180 tabs 09/16/23 diaper,brief,adult,disposable #120 ea 10/01/23 terazosin 10 mg capsule 10 mg PO BEDTIME 90 days #90 caps 10/01/23 ROHO CUSHION #1 ea 04/20/24 WHEELCHAIR WITH CLIPBELT CLAMP #1 ea 04/20/24 HOOKS OR TIE DOWN gabapentin 100 mg capsule 100 mg PO TID PRN anxiety #1 cap 05/07/24 SHOWER/COMMODE CHAIR ON WHEELS #1 ea 06/02/24 chair with shoulder harness #1 ea 06/02/24 starch (thickening) ([employer] See Rx Instructions PO .COMPLEX 30 06/02/24 Thick-It oral powder) days #850 grams collagenase clostridium histo. 250 1 appl topical DAILY PRN wound 06/07/24 unit/gram topical ointment (Santyl) care #30 grams swingway foot rest for wheelchair #2 ea 06/09/24 SHOWER CHAIR with ARMS #1 ea 06/09/24 atorvastatin 40 mg tablet (Lipitor) 40 mg PO BEDTIME #30 tabs 07/13/24 levetiracetam 500 mg tablet 500 mg PO BID #60 tabs 07/13/24 (Keppra) lisinopril 10 mg tablet 10 mg PO DAILY #30 tabs 07/13/24 finasteride 5 mg tablet 5 mg PO DAILY #90 tabs 08/02/24 aspirin 81 mg chewable tablet 81 mg PO DAILY #90 tabs 08/11/24 (Aspirin Childrens) blood sugar diagnostic (Prodigy No #100 ea 08/11/24 Coding strips) acetaminophen 500 mg/15 mL oral 500 mg (15 mL) PO .COMPLEX PRN 08/13/24 liquid fever or pain #237 mL carbidopa 25 mg-levodopa 100 mg 2 tab PO QID 30 days #240 tabs 08/17/24 tablet topiramate 50 mg tablet (Topamax) 50 mg PO BID 90 days #180 tabs 08/17/24 Allergies Allergy/AdvReac Type Severity Reaction Status Date / Time perfume Allergy Intermediate ITCHING Verified 08/18/24 10:32 Review of Systems 2 Constitutional: Constitutional: Reports no additional constitutional complaints, Denies chills, Denies fever(s) and Denies night sweats Eyes: Eyes: Reports no additional eye complaints, Denies blurry vision, Denies change in vision, Denies diplopia, Denies eye discharge, Denies loss of vision and Denies eye pain ENT: Reports dizziness Cardiovascular: Cardiovascular: Reports no additional cardiovascular complaints, Denies chest pain, Denies lightheadedness, Denies Loss of Consciousness and Denies dyspnea Respiratory: Respiratory: Reports no additional respiratory complaints and Denies dyspnea Gastrointestinal: Gastrointestinal: Reports no additional gastrointestinal complaints, Denies abdominal pain, Denies melena, Denies hematochezia, Denies change in bowel habits and Denies change in stool character Genitourinary: Genitourinary: Reports no additional male genitourinary complaints, Denies hematuria, Denies oliguria, Denies difficulty urinating, Denies dysuria, Denies urinary frequency, Denies urinary hesitancy, Denies urinary incontinence and Denies urinary urgency Musculoskeletal: Musculoskeletal: Reports no additional musculoskeletal complaints, Denies numbness and Denies tingling Neurologic: Reports dizziness, Denies loss of vision, Denies numbness and Denies tingling Psychiatric: Psychiatric: Reports no additional psychiatric complaints Endocrine: Endocrine: Reports no additional endocrine complaints Hematologic/Lymphatic: Hematologic/Lymphatic: Reports no additional hematologic/lymphatic complaints Allergic/Immunologic: Allergic/Immunologic: Reports no additional allergic/immunologic complaints [facility] Past Medical History Attestation statement: The following information was validated with the patient. Source: old records reviewed and nursing notes reviewed Medical History Headache Buttock wound Nausea & vomiting Hospital discharge follow-up Confusion Urinary incontinence Weakness of both lower limbs Screening for eye condition Type 2 diabetes mellitus with hyperglycemia, without long-term current use of insulin Diabetes type 2, uncontrolled Unsteady gait Subungual hematoma of great toe Rash Bruising Annual physical exam Pedal edema Oropharyngeal dysphagia Occipital infarction Tubular adenoma of colon Type 2 diabetes mellitus with hyperglycemia Dysphagia Vitamin D deficiency Parkinson's disease Developmental delay, moderate Hypercholesteremia Gastroesophageal reflux disease Hypertension Metabolic encephalopathy Schizophrenia Depression BPH with obstruction/lower urinary tract symptoms Surgical History History of circumcision History of prostate surgery History of colonoscopy Family History Family History Father Type II diabetes mellitus Mother Type II diabetes mellitus Social History Social History Household Members: Caregiver Housing: Assisted Living Facility Housing Other:: INTERMEDIATE Do you presently have visiting nurse or other home services: Yes Unable to assess alcohol history related to: Unable to respond Alcohol intake: unknown Comment: caregiver in room Patient Tobacco Use Status: Never used Tobacco e-Cigarette/Vaping Use: Never Used Second Hand Smoke Exposure: No Advance Directives: No Advance Directives Information Provided: Yes Advance Directives Date on File: 07/11/21 service: No Current occupational status: disabled Current occupational exposures/hazards: No Cognitive needs: Yes Hearing needs: No Vision needs: No Physical Exam ED Vital Signs: Vital Signs - 24 hr 08/18/24 10:10 08/18/24 12:16 Temperature 98.6 F 98.6 F Pulse Rate 89 89 Respiratory Rate 16 16 Blood Pressure 161/70 H 161/70 H Pulse Oximetry 99 99 Oxygen Delivery Method Room Air Room Air BMI result Body Mass Index 26.6 Const General: cooperative, no acute distress, alert and awake Nutritional Appearance: well nourished Orientation/consciousness: oriented to person and oriented to place Limitations: no limitations HENMT Head: Yes normal to inspection and Yes atraumatic Ears: hearing grossly normal bilaterally and external ears normal General nose exam: Normal external nose present, no nasal discharge noted and no epistaxis Face and sinus: No abrasion, No laceration and Yes other (minimal right cheek swelling / light bruising) Mouth: Normal oral and palatal mucosa present, no drooling and no muffled voice Eyes General: appearance normal, both eyes and all related structures Periorbital: periorbital findings normal Eyelids: Yes eyelids normal Conjunctivae: conjunctivae normal Pupils: Equal, round and reactive pupils present EOM: EOMs intact bilaterally Neck Neck: Yes normal visual inspection, Yes full ROM and Yes no lymphadenopathy Chest Chest palpation & inspection: normal inspection of the chest Resp Effort & Inspection: normal respiratory effort and able to speak in complete sentences GI Inspection: Yes normal to inspection Neuro Other: tremulous at baseline General: oriented to person, oriented to place and moves all extremities Cranial nerves: Yes Equal, round and reactive pupils present Extrem Other: abrasion to the left 5th finger General: Yes full ROM and Yes capillary refill normal Psych Appearance: grossly normal Mental Status: mental status grossly normal Affect: normal affect Attitude: cooperative Thought process: Normal thought process present Thought content: Normal thought content present Insight: Good insight present (Psych) Medical Decision Making Medical Decision Making MDM Narrative: Patient is a 74 year old assigned male at with a history of intellectual disability, schizophrenia, dysphagia, CVA, GERD, IBS, DM, mood disorder, HTN, and medication induced parkinson like symptoms presenting to the emergency department today after a fall. Patient's physical exam was as noted in the physical exam portion of this note. Patient's blood work was unremarkable. Patient's EKG was unremarkable. Patient's chest x-ray showed no acute process. Patient's c-spine CT showed no acute process. Patient's facial CT showed no acute process. Patient's left hand x-ray showed no acute process. Patient's head CT showed acute to subacute right sided subdural hemorrhage with mass effect causing 3mm right to left herniation and an acute right subdural of the tentorium and falx. I called and spoke to the [facility] Trauma surgeon Dr. Rasheed who recommended transfer to their ED for trauma consult. I explained my physical exam findings as well as all test results to the patient. I answered all questions asked by the patient. Patient verbalized agreement and understanding with this treatment plan and transfer. Differential Diagnosis Differential Diagnoses: The differential diagnosis associated with the presentation includes Intracranial hemorrhage Fall Admission/Observation Consideration of admission/observation: Escalation of care including admission/observation considered Patient transferred to [facility] ED. Consult Healthcare Provider Management of the patient was discussed with: [employer] (spoke to Dr. Rasheed, trauma surgeon at [facility], as noted in the MDM Rationale portion of this note.) Lab Data [facility] Lab Attestation statement: I reviewed the patient's lab results. My interpretation of these results are in the MDM Rationale portion of this note. 08/18/24 11:14 08/18/24 11:58 Labs: Lab Results 08/18/24 08/18/24 Range/Units 11:14 11:58 WBC 6.3 (4.8-10.8) X10*3/uL RBC 3.90 L (4.60-5.80) X10*6/uL Hgb 12.6 L (14.0-18.0) g/dl Hct 38.4 L (42.0-52.0) % MCV 98.5 H (80.0-98.0) fL MCH 32.3 (27.0-33.0) pg MCHC 32.8 (31.0-36.0) g/dl RDW 13.5 (11.0-16.0) % Plt Count 188 (160-400) X10*3/uL MPV 8.6 L (9.4-12.4) fL Immature Gran % (Auto) 0.3 (0.0-0.4) % Neut % (Auto) 69.6 (45-73) % Lymph % (Auto) 19.9 L (20-40) % [place] % (Auto) 8.9 (2-11) % Eos % (Auto) 1.0 (0-4) % Baso % (Auto) 0.3 (0-2) % Lymph # (Auto) 1.3 (1.2-4.9) X10*3/uL [place] # (Auto) 0.6 (0.1-1.2) X10*3/uL Eos # (Auto) 0.1 (0.0-0.4) X10*3/uL Baso # (Auto) 0.0 (0.0-0.2) X10*3/uL Abs Immat Gran (auto) 0.02 (0.00-0.03) X10*3/uL Absolute Neuts (auto) 4.4 (2.0-8.3) x10*3/uL Absolute Nucleated RBC 0.000 (0.0-0.012) X10*3/uL Nucleated RBC % (auto) 0.0 (0.0-0.2) /100WBC Sodium 140 (135-145) mmol/L Potassium 4.3 (3.3-5.1) mmol/L Chloride 106 (96-108) mmol/L Carbon Dioxide 24 (22-29) mmol/L Anion Gap 14 (12-20) BUN 18 H (9-16) mg/dL Creatinine 0.65 (0.5-1.4) mg/dL Estim Creat Clear Calc 82.2 Estimated GFR > 60 Random Glucose 90 (60-115) mg/dL Calcium 8.9 (8.4-10.2) mg/dL Magnesium 1.8 (1.6-2.6) mg/dL Total Bilirubin 0.4 (0.0-1.0) mg/dL AST 21 (5-37) U/L ALT < 6 (0-40) U/L Alkaline Phosphatase 76 (39-117) U/L Total Protein 5.9 L (6.5-8.0) g/dL Albumin 3.5 (3.5-5.0) g/dL Influenza Type A (PCR) NEGATIVE (Negative) Influenza Type B (PCR) NEGATIVE (Negative) RSV RNA Qual (PCR) NEGATIVE (Negative) SARS-CoV-2 RNA (RT-PCR) NEGATIVE (Negative) Independent Interpretation I performed an independent interpretation of an: EKG, Plain X-Ray and CT Scan Interpretation: My interpretation is in agreement with the radiologist's impression of these imaging studies. L EXAMINATION: CT FACIAL BONES WITHOUT CONTRAST CLINICAL INFORMATION: Status post fall. Injury to face. COMPARISON: None available. TECHNIQUE: Contiguous axial images through the maxillofacial bones using 1.5 and 3.0 mm collimation with bone and soft tissue algorithm. Sagittal and coronal reformatted images acquired. This CT examination was performed using dose optimization techniques as appropriate, variously including the following: *Automated exposure control *Adjustment of mA and/or kV according to patient size (this includes techniques or standardized protocols for targeted exams where dose is matched to indication/reason for exam; i.e. extremities or head) *Use of iterative reconstruction technique DLP: 373 mGy-cm FINDINGS: Limited by patient's motion artifact. Cortical irregularities in the nasal bones. Nasal septum and vomer are grossly intact. Left parasagittal spur, nasal septum. The orbital rims are intact. The choroidal fissures and orbital apices are intact. No hematoma, intraconal or extraconal compartments of the orbits. The eyeballs are intact. Soft tissue contusion/hematoma in the right maxillary fat planes anterior lateral and inferior to the right zygomatic arch. The zygomatic arch are intact bilaterally. The maxilla and pterygoid plates are intact. The mandible is intact. The temporomandibular joints are intact and well articulated. Polypoid mucosal thickening, left maxillary sinus. No air-fluid levels in the paranasal sinuses. Tympanic cavities and mastoid cells are aerated. Pneumatized left petrous apex, congenital. Vascular calcifications in the carotid arteries. Edentulus .maxilla and mandible. CT/CT facial bones wo IV con IMPRESSION: Soft tissue contusion/hematoma right maxillary. No acute maxillofacial bone fracture. Probable old traumatic deformity, nasal bones. Electronically signed by: Mike Sutton MD 08/18/2024 11:47 AM EST Dictated By: Mike Redding MD Signed By: Electronically signed by Mike Siegel MD 08/18/24 1147 EXAMINATION: CT HEAD WITHOUT CONTRAST CLINICAL INFORMATION: pain, injury COMPARISON: CT dated July 10, 2024 TECHNIQUE: Contiguous axial imaging was performed from the skull base to vertex without intravenous administration of contrast. This CT examination was performed using dose optimization techniques as appropriate, variously including the following: *Automated exposure control *Adjustment of mA and/or kV according to patient size (this includes techniques or standardized protocols for targeted exams where dose is matched to indication/reason for exam; i.e. extremities or head) *Use of iterative reconstruction technique DLP: 1650 mGy-cm FINDINGS: Limited by patient's motion artifact. There is an extra-axial mixed isointense to hyperintense attenuation along the right frontotemporal parietal convexity measuring no more than 1.6 cm resulting in the CSF effacement of the right cerebral sulci. There is a 3 mm right to left subfalcine herniation. There is no hydrocephalus. There is no downward herniation. No acute intraparenchymal hemorrhage. There is a 0.6 cm extra-axial CSF equivalent abnormality along the left parietal convexity without mass effect. There is a 3 mm maximum thickness hyperdensity in the extra-axial compartment along the falx and extending into the right tentorium. No acute intra-axial hemorrhage. Bazan-white matter differentiation is normal. Small cavum septum callosum. Bony calvarium is intact. Old traumatic deformity nasal bones. Skull base is intact. Soft tissue contusion and right maxillary. Polypoid mucosal thickening left maxillary sinus. No air-fluid levels in the paranasal sinuses. Tympanic cavities and mastoid cells are aerated. Pneumatized left petrous apex. CT/CT head/brain wo IV con IMPRESSION: Acute to subacute, 1.6 cm maximal thickness, right-sided subdural hemorrhage with mass effect upon the right hemisphere causing 3 mm right to left subfalcine herniation. No hydrocephalus or downward herniation. Acute subdural hemorrhage, right tentorium and falx. Subacute to old subdural hemorrhage, left parietal convexity. No acute fracture, bony calvarium. Discussed with Ely Joseph at 11:50 AM Electronically signed by: Mike Sutton MD 08/18/2024 11:56 AM [facility] Dictated By: Mike Redding MD Signed By: Electronically signed by Mike Siegel MD 08/18/24 1156 EXAMINATION: CT HEAD WITHOUT CONTRAST CLINICAL INFORMATION: pain, injury COMPARISON: CT dated July 10, 2024 TECHNIQUE: Contiguous axial imaging was performed from the skull base to vertex without intravenous administration of contrast. This CT examination was performed using dose optimization techniques as appropriate, variously including the following: *Automated exposure control *Adjustment of mA and/or kV according to patient size (this includes techniques or standardized protocols for targeted exams where dose is matched to indication/reason for exam; i.e. extremities or head) *Use of iterative reconstruction technique DLP: 1650 mGy-cm FINDINGS: Limited by patient's motion artifact. There is an extra-axial mixed isointense to hyperintense attenuation along the right frontotemporal parietal convexity measuring no more than 1.6 cm resulting in the CSF effacement of the right cerebral sulci. There is a 3 mm right to left subfalcine herniation. There is no hydrocephalus. There is no downward herniation. No acute intraparenchymal hemorrhage. There is a 0.6 cm extra-axial CSF equivalent abnormality along the left parietal convexity without mass effect. There is a 3 mm maximum thickness hyperdensity in the extra-axial compartment along the falx and extending into the right tentorium. No acute intra-axial hemorrhage. Bazan-white matter differentiation is normal. Small cavum septum callosum. Bony calvarium is intact. Old traumatic deformity nasal bones. Skull base is intact. Soft tissue contusion and right maxillary. Polypoid mucosal thickening left maxillary sinus. No air-fluid levels in the paranasal sinuses. Tympanic cavities and mastoid cells are aerated. Pneumatized left petrous apex.. CT/CT head/brain wo IV con IMPRESSION: Acute to subacute, 1.6 cm maximal thickness, right-sided subdural hemorrhage with mass effect upon the right hemisphere causing 3 mm right to left subfalcine herniation. No hydrocephalus or downward herniation. Acute subdural hemorrhage, right tentorium and falx. Subacute to old subdural hemorrhage, left parietal convexity. No acute fracture, bony calvarium. Discussed with Ely Joseph at 11:50 AM Electronically signed by: Mike Sutton MD 08/18/2024 11:56 AM [facility] Dictated By: Mike Redding MD Signed By: Electronically signed by Mike Siegel MD 08/18/24 1156 EXAMINATION: CT CERVICAL SPINE WITHOUT CONTRAST CLINICAL INFORMATION: Status post fall. COMPARISON: CT dated July 10, 2024 TECHNIQUE: Contiguous axial images through the cervical spine using 0.6 and 2.0 mm collimation with bone and soft tissue algorithm. Sagittal and coronal reformatted images acquired. This CT examination was performed using dose optimization techniques as appropriate, variously including the following: *Automated exposure control *Adjustment of mA and/or kV according to patient size (this includes techniques or standardized protocols for targeted exams where dose is matched to indication/reason for exam; i.e. extremities or head) *Use of iterative reconstruction technique DLP: 316 mGy-cm FINDINGS: Craniocervical junction is intact. C1 is intact. C2 is intact. C3 is intact. C4 is intact. C5 is intact. C6 is intact. C7 is intact. No gross hematoma, prevertebral compartment. Multilevel syndesmophyte formation, marginal osteophyte formation, endplate sclerosis, subchondral cyst formation and decreased intervertebral disc height C3 C7. Grade 1 retrolisthesis C3-4. Hypertrophy of the facet joints bilaterally.. Vascular complications in the carotid arteries. Tympanic cavities and mastoid cells are aerated. Pneumatized left petrous apex. CT/CT cervical spine wo IV con IMPRESSION: Multilevel cervical spondylosis C3 C7 resulting in grade 1 retrolisthesis C3-4 without acute fracture or trauma-related listhesis. Fleischner guidelines were followed. Electronically signed by: Mike Sutton MD 08/18/2024 12:04 PM [facility] Dictated By: Mike Redding MD Signed By: Electronically signed by Mike Siegel MD 08/18/24 1204 EXAMINATION: XR HAND, LEFT CLINICAL INFORMATION: pain, injury COMPARISON: None available. TECHNIQUE: PA, lateral, and oblique views of the left hand. FINDINGS: The digits are held in flexion on all images limiting evaluation. No acute fracture or subluxation is detected. XR/XR hand LT min 3V IMPRESSION: No detected fracture or subluxation. Electronically signed by: Hector Mobley MD 08/18/2024 11:34 AM EST Dictated By: Hector Mobley MD Signed By: Electronically signed by Hector Mobley MD 08/18/24 1134 Vent. Rate: 097 BPM Atrial Rate: 097 BPM P-R Int: 098 ms QRS Dur: 080 ms QT Int: 344 ms P-R-T Axes: 020 -12 053 degrees QTc Int: 436 ms Sinus rhythm with short SD Otherwise normal ECG When compared with ECG of 05-JUL-2024 08:35, No significant change was found Referred By: Ely Joseph Electronically Signed By:POLA SOUTH MD Dictated By: Pola South MD Signed By: Electronically signed by Pola South MD 08/18/24 1304 Radiology Impression Discussion of test interpretation with radiology: I have reviewed the radiologist's reading. Independent Historian Clinical information obtained from an independent historian. History obtained from or confirmed by: EMS (EMS provided additional history and confirmed the history provided by the patient.) Critical Care Time Critical Care Time Critical Care Time: Yes Total Critical Care Time: 41 Attestation: I spent 41 minutes of Critical Care Time with this patient. This does not include time spent on separately reported billable procedures. Discharge Plan Discharge Clinical Impression: Subdural hematoma, Subarachnoid hematoma, Fall, Dizziness Patient Disposition: [facility] Transfer Details: [facility] ED - accepted by Dr. Rasheed Prescriptions: No Action mirtazapine 15 mg tablet,disintegrating 15 mg PO BEDTIME 90 Days Qty: 90 2RF (DME) THICK IT See Rx Instructions .Route .MEDSUPPLY Qty: 1 0RF Rx Instructions: As directed (DME) PRODIGY LANCET See Rx Instructions .Route .MEDSUPPLY Qty: 100 12RF Rx Instructions: As directed divalproex 125 mg capsule, delayed rel sprinkle 500 mg PO BID 90 Days Qty: 720 2RF metformin 1,000 mg tablet 1,000 mg PO BID Qty: 180 3RF (DME) ROHO CUSHION See Rx Instructions .Route .MEDSUPPLY Qty: 1 0RF Rx Instructions: As directed (DME) WHEELCHAIR WITH CLIPBELT CLAMP HOOKS OR TIE DOWN See Rx Instructions .Route .MEDSUPPLY Qty: 1 0RF Rx Instructions: As directed Santyl 250 unit/gram ointment 1 appl topical DAILY PRN (Reason: wound care) Qty: 30 4RF Rx Instructions: Bilateral 1 cm gluteal area desquamation with Thin layer daily AM (DME) SHOWER CHAIR with ARMS See Rx Instructions .Route .MEDSUPPLY Qty: 1 0RF Rx Instructions: shower chair w/ arms and swingway foot rest for wheelchair (DME) swingway foot rest for wheelchair See Rx Instructions .Route .MEDSUPPLY Qty: 2 0RF Rx Instructions: shower chair w/ arms and swingway foot rest for wheelchair levetiracetam [Keppra] 500 mg tablet 500 mg PO BID Qty: 60 12RF lisinopril 10 mg tablet 10 mg PO DAILY Qty: 30 11RF atorvastatin [Lipitor] 40 mg tablet 40 mg PO BEDTIME Qty: 30 12RF finasteride 5 mg tablet 5 mg PO DAILY Qty: 90 0RF (DME) Prodigy No Coding Strip See Rx Instructions .Route Qty: 100 0RF Rx Instructions: Test 3 times daily aspirin [Aspirin Childrens] 81 mg tablet,chewable 81 mg PO DAILY Qty: 90 0RF acetaminophen 500 mg/15 mL liquid 500 mg PO .COMPLEX PRN (Reason: fever or pain) Qty: 237 12RF Rx Instructions: 500 mg orally Q.i.d. for pain and fever and sore throat PRN; topiramate [Topamax] 50 mg tablet 50 mg PO BID 90 Days Qty: 180 0RF Rx Instructions: crush and mix with soft foods carbidopa-levodopa 25-100 mg tablet 2 tab PO QID 30 Days Qty: 240 0RF Rx Instructions: 37.5 - 150 mg to be taken 4 times a day escitalopram oxalate 5 mg/5 mL solution 10 mg PO DAILY gabapentin 300 mg Capsule 300 mg PO BEDTIME gabapentin 100 mg capsule 100 mg PO TID PRN (Reason: anxiety) Qty: 1 0RF (DME) compress.stocking,knee,reg,med Misc See Rx Instructions .Route Qty: 2 0RF Rx Instructions: As directed 20-30 mm HG olanzapine [Zyprexa] 10 mg tablet 10 mg PO BEDTIME (DME) SHOWER/COMMODE CHAIR ON WHEELS See Rx Instructions .Route .MEDSUPPLY Qty: 1 0RF Rx Instructions: As directed (DME) chair with shoulder harness See Rx Instructions .Route .MEDSUPPLY Qty: 1 0RF Rx Instructions: As directed (DME) BRIEF LArge See Rx Instructions .Route .MEDSUPPLY Qty: 100 11RF Rx Instructions: As directed [employer] Thick-It Powder See Rx Instructions PO .COMPLEX 30 Days Qty: 850 12RF Rx Instructions: mix 4-5 tsp of thick to every 4 ounces of liquid every meal orally; (DME) lancets [Prodigy Twist Top Lancet] 28 gauge misc See Rx Instructions .ROUTE .MEDSUPPLY Qty: 100 Rx Instructions: As directed terazosin 10 mg capsule 10 mg PO BEDTIME 90 Days Qty: 90 3RF Rx Instructions: open capsule and mix with soft foods (DME) diaper,brief,adult,disposable Misc See Rx Instructions .ROUTE .MEDSUPPLY Qty: 120 11RF Rx Instructions: As directed - 4x a day mirtazapine 15 mg tablet 15 mg PO BEDTIME Interventions: Acute Care Transfer Worksheet (ED) Last Done: 08/18/24 12:16 Discharge Date/Time: 08/18/24 12:17 Print Language: Yakut
--- NOTE | 2024-08-18 10:25 | ECG_ITS ---
Test Reason : DIZZINESS Blood Pressure : / mmHG Vent. Rate : 097 BPM Atrial Rate : 097 BPM P-R Int : 098 ms QRS Dur : 080 ms QT Int : 344 ms P-R-T Axes : 020 -12 053 degrees QTc Int : 436 ms Sinus rhythm with short NH Otherwise normal ECG When compared with ECG of 05-JUL-2024 08:35, No significant change was found Referred By: Ely Josehp Electronically Signed By:RAFAELA SOUTH MD
--- NOTE | 2024-08-18 10:26 | PC.NURSE ---
Pt to CT Scan.
--- NOTE | 2024-08-18 10:35 | PC.NURSE ---
wall worker at the bedside at this time.
--- NOTE | 2024-08-18 10:47 | PC.NURSE ---
Xray at bedside.
[2024-08-18 11:24] LABS: MANUAL DIFF FLAG NO
[2024-08-18 11:27] LABS: Basophils Percent Auto 0.3 % (0-2); Eosinophils Absolute Auto 0.1 X10*3/uL (0.0-0.4); Hematocrit 38.4 % (42.0-52.0); Hemoglobin 12.6 g/dl (14.0-18.0); Imm Gran Abs Auto 0.02 X10*3/uL (0.00-0.03); Imm Gran Pct Auto 0.3 % (0.0-0.4); Lymphocytes Absolute Auto 1.3 X10*3/uL (1.2-4.9); Lymphocytes Percent Auto 19.9 % (20-40); Mean Corpuscular HGB Conc 32.8 g/dl (31.0-36.0); Mean Corpuscular Hemoglobin 32.3 pg (27.0-33.0); Mean Corpuscular Volume 98.5 fL (80.0-98.0); Mean Platelet Volume 8.6 fL (9.4-12.4); Monocytes Absolute Auto 0.6 X10*3/uL (0.1-1.2); Monocytes Percent Auto 8.9 % (2-11); Neutrophils Absolute Auto 4.4 x10*3/uL (2.0-8.3); Neutrophils Percent Auto 69.6 % (45-73); Platelet Count 188 X10*3/uL (160-400); Red Cell Distribution Width 13.5 % (11.0-16.0); White Blood Count 6.3 X10*3/uL (4.8-10.8)
--- NOTE | 2024-08-18 11:35 | PC.NURSE ---
this nurse assumed care of pt at 1100- this nurse was notified preliminary CT read is questionable for: Subdural hematoma, Subarachnoid hematoma. Per JADE Joseph pt accepted by [facility]: MD Rasheed.
--- NOTE | 2024-08-18 12:15 | PC.NURSE ---
Petra VILLEDA to bedside- Nurse to Nurse called in to Libby at [facility] ED- updated on official CT read rec at 1156. senior care RNLeopoldo Updated- leopoldo to follow pt to [facility].
[2024-08-18 12:16] VITALS: BP 161/70; PULSE 89; RESP 16; TEMP 37; O2SAT 99
[2024-08-18 12:17] LABS: Influenza A PCR NEGATIVE (Negative); Influenza B PCR NEGATIVE (Negative); Resp Syncy Virus RNA Qual PCR NEGATIVE (Negative); SARS COV2 PCR INHOUSE NEGATIVE (Negative)
[2024-08-18 12:19] LABS: Alanine Aminotransferase < 6 U/L (0-40); Albumin Level 3.5 g/dL (3.5-5.0); Alkaline Phosphatase 76 U/L (39-117); Anion Gap 14 (12-20); Aspartate Amino Transferase 21 U/L (5-37); Bilirubin Total 0.4 mg/dL (0.0-1.0); Blood Urea Nitrogen 18 mg/dL (9-16); Calcium 8.9 mg/dL (8.4-10.2); Carbon Dioxide 24 mmol/L (22-29); Chloride 106 mmol/L (96-108); Creatinine Clr Calc Pharmacy 82.2; Estimated Glomerular Filt Rate > 60; Glucose Random 90 mg/dL (60-115); Magnesium 1.8 mg/dL (1.6-2.6); Potassium 4.3 mmol/L (3.3-5.1); Sodium 140 mmol/L (135-145); Total Protein 5.9 g/dL (6.5-8.0)
== END 2024-08-18 12:17 | disposition short-term general hospital (02) ==
PROVIDERS: Physician Assistant Medical; Emergency Provider Emergency Medicine; PCP Internal Medicine
DX: S06.5X0A Traumatic subdural hemorrhage without loss of consciousness, initial encounter (principal); S06.6X0A Traumatic subarachnoid hemorrhage without loss of consciousness, initial encounter; S00.83XA Contusion of other part of head, initial encounter; W07.XXXA Fall from chair, initial encounter; R42 Dizziness and giddiness; Z03.818 Encounter for observation for suspected exposure to other biological agents ruled out; E11.9 Type 2 diabetes mellitus without complications; I10 Essential (primary) hypertension; E78.00 Pure hypercholesterolemia, unspecified; F32.9 Major depressive disorder, single episode, unspecified; F89 Unspecified disorder of psychological development; F20.9 Schizophrenia, unspecified; G20.C Parkinsonism, unspecified; Z86.73 Personal history of transient ischemic attack (TIA), and cerebral infarction without residual deficits; Y93.89 Activity, other specified; Y92.199 Unspecified place in other specified residential institution as the place of occurrence of the external cause; Y99.9 Unspecified external cause status; Z79.02 Long term (current) use of antithrombotics/antiplatelets; Z79.82 Long term (current) use of aspirin; Z79.84 Long term (current) use of oral hypoglycemic drugs
CPT/HCPCS: 0241U; 70450; 70486; 71045; 72125; 73130; 80053; 83735; 85025; 93005; 99284; 99285

== ENCOUNTER → 2024-08-18 10:15 | Outpatient (BNV) | payer MEDICARE, MEDICAID, SELFPAY | PROVIDERS: Emergency Provider Emergency Medicine; PCP Internal Medicine; Visit Provider Radiology Diagnostic Radiology | DX: R51.9 Headache, unspecified (principal) | CPT/HCPCS: 70450; 70486; 72125 ==

== ENCOUNTER → 2024-08-18 10:25 | Outpatient (BNV) | payer MEDICARE, MEDICAID, SELFPAY | PROVIDERS: Emergency Provider Emergency Medicine; PCP Internal Medicine; Visit Provider Internal Medicine Cardiovascular Disease | DX: R42 Dizziness and giddiness (principal) | CPT/HCPCS: 93010 ==

== ENCOUNTER 2024-09-17 10:12 | Outpatient (AMB) | payer MEDICARE, MEDICAID, SELFPAY ==
--- OUTSIDE RECORDS SUMMARY | 2024-09-17 10:14 | XMS_ITS | Clinical Summary ---
Author Organization Unknown Care Team Providers Care Paralegal Supervisor Name Role Phone CECILIO STOCK HANGER, JOEY Unavailable Unavailalia BARKSDALE RN, DEMETRIO Unavailable Unavailable ANDI FLANAGAN, OUSMANE Unavailable Unavailable Payers Payer Name Policy Type Policy Number Effective Date Expira tion Date MEDICARE - [facility] [place] - [id number] [place] [id number] ON DEMAND MEDICARE - [facility] [place] - [place] [id number] Problems Condition Name Condition Details Condition Category Status Onset Date Resolution Date Last Treatment Date Treating Clinician Comments UNDIFFERENTI ATED SCHIZOPHRENI A Active 2022-09 00:00: 00 TYPE 2 DIABETES MELLITUS WITHOUT COMPLICATION S Active 2022-09 00:00: 00 Allergies, Adverse Reactions, Alerts Allergy Name Allergy Type Status Severity Reaction(s) Onset Date Inactive Date Treating Clinician Comments NKA Propensity to adverse reactions Active 2023-07 12:10:4 7 Medications Ordered Medication Name Filled Medication Name Start Date Stop Date Current Medication? Ordering Clinician Indication Dosage Frequency Signature (SIG) Comments Components carbidopa 25 mg-levodopa 100 mg tablet 2019-09 00:00: 00 11-12 00:00 :00 No [id number] Per instruc tions Per instructio ns (route: oral) Med Classific ation: Central Nervous System Agents omeprazole 20 mg capsule,del ayed release 2019-09 00:00: 00 11-12 00:00 :00 No [id number] Per instruc tions Per instructio ns (route: oral) Med Classific ation: Gastroint estinal Therapy Agents benztropine 0.5 mg tablet 2019-09 00:00: 00 11-12 00:00 :00 No [id number] Per instruc tions Per instructio ns (route: oral) Med Classific ation: Central Nervous System Agents metformin 500 mg tablet 2019-09 00:00: 00 11-12 00:00 :00 No [id number] Per instruc tions Per instructio ns (route: oral) Med Classific ation: Endocrine Vitamin D3 25 mcg (1,000 unit) capsule 2019-09 00:00: 00 11-12 00:00 :00 No [id number] Per instruc tions Per instructio ns (route: oral) Med Classific ation: Electroly te Balance-N utritiona l Products lisinopril 20 mg tablet 2019-09 00:00: 00 11-12 00:00 :00 No [id number] Per instruc tions Per instructio ns (route: oral) Med Classific ation: Cardiovas cular Therapy Agents topiramate 50 mg tablet 2019-09 00:00: 00 11-12 00:00 :00 No [id number] Per instruc tions Per instructio ns (route: oral) Med Classific ation: Central Nervous System Agents aspirin 81 mg tablet,jojo yed release 2019-09 00:00: 00 11-12 00:00 :00 No [id number] Per instruc tions Per instructio ns (route: oral) Med Classific ation: Hematolog ical Agents duloxetine 60 mg capsule,del ayed release 2019-09 00:00: 00 11-12 00:00 :00 No [id number] Per instruc tions Per instructio ns (route: oral) Med Classific ation: Central Nervous System Agents divalproex 250 mg tablet,jojo yed release 2019-09 00:00: 00 11-12 00:00 :00 No [id number] Per instruc tions Per instructio ns (route: oral) Med Classific ation: Central Nervous System Agents mirtazapine 15 mg tablet 2019-09 00:00: 00 11-12 00:00 :00 No [id number] Per instruc tions Per instructio ns (route: oral) Med Classific ation: Central Nervous System Agents risperidone 1 mg tablet 2019-09 00:00: 00 11-12 00:00 :00 No [id number] Per instruc tions Per instructio ns (route: oral) Med Classific ation: Central Nervous System Agents simvastatin 10 mg tablet 2019-09- 00:00: 00 11-12 00:00 :00 No [id number] Per instruc tions Per instructio ns (route: oral) Med Classific ation: Cardiovas cular Therapy Agents Invega Sustenna 117 mg/0.75 mL intramuscul ar syringe 11-12 00:00: 00 08-28 23:59 :00 No [id number] Per instruc tions MONTHLY Per instructio ns MONTHLY (route: intramuscu lar) Med Classific ation: Central Nervous System Agents olanzapine 10 mg tablet 2022-09 00:00: 00 Yes [id number] 1 tablet BEDTIME 1 tablet BEDTIME (route: oral) Med Classific ation: Central Nervous System Agents quetiapine 25 mg tablet 2022-09 00:00: 00 08-28 23:59 :00 No [id number] 1 tablet BEDTIME 1 tablet BEDTIME (route: oral) Med Classific ation: Central Nervous System Agents escitalopra m 5 mg/5 mL oral solution 2022-09 00:00: 00 08-28 23:59 :00 No [id number] 5 mL BEDTIME 5 mL BEDTIME (route: oral) Med Classific ation: Central Nervous System Agents quetiapine 50 mg tablet 2022-09 00:00: 00 08-28 23:59 :00 No [id number] 1 tablet BEDTIME 1 tablet BEDTIME (route: oral) Med Classific ation: Central Nervous System Agents aspirin 81 mg chewable tablet 2022-09 00:00: 00 10-23 23:59 :00 No [id number] 1 tablet DAILY 1 tablet DAILY (route: oral) Med Classific ation: Hematolog ical Agents atorvastati n 40 mg tablet 2022-09 00:00: 00 08-28 23:59 :00 No [id number] 1 tablet DIRECTED 1 tablet DIRECTED (route: oral) Med Classific ation: Cardiovas cular Therapy Agents carbidopa 25 mg-levodopa 100 mg tablet 2022-09 00:00: 00 10-22 23:59 :00 No [id number] 1.5 tablet 4 TIMES DAILY 1.5 tablet 4 TIMES DAILY (route: oral) Med Classific ation: Central Nervous System Agents divalproex 125 mg capsule,del ayed release sprinkle 2022-09 00:00: 00 10-22 23:59 :00 No [id number] 4 capsule 2 TIMES DAILY 4 capsule 2 TIMES DAILY (route: oral) Med Classific ation: Central Nervous System Agents gabapentin 300 mg capsule 2022-09 00:00: 00 Yes [id number] 1 capsule BEDTIME 1 capsule BEDTIME (route: oral) Med Classific ation: Central Nervous System Agents lorazepam 0.5 mg tablet 2022-09 00:00: 00 02-18 23:59 :00 No [id number] 0.5 tablet NEEDED 0.5 tablet NEEDED (route: oral) Med Classific ation: Central Nervous System Agents melatonin 3 mg tablet 2022-09 00:00: 00 08-28 23:59 :00 No [id number] 1 tablet NEEDED 1 tablet NEEDED (route: oral) Med Classific ation: Central Nervous System Agents metformin 1,000 mg tablet 2022-09 00:00: 00 08-28 23:59 :00 No [id number] 1 tablet BEDTIME 1 tablet BEDTIME (route: oral) Med Classific ation: Endocrine mirtazapine 15 mg disintegrat ing tablet 2022-09 00:00: 00 Yes [id number] 1 tablet BEDTIME 1 tablet BEDTIME (route: oral) Med Classific ation: Central Nervous System Agents terazosin 10 mg capsule 2022-09 00:00: 00 Yes [id number] 1 capsule DAILY 1 capsule DAILY (route: oral) Med Classific ation: Cardiovas cular Therapy Agents topiramate 50 mg tablet 2022-09 00:00: 00 Yes [id number] 1 tablet 2 TIMES DAILY 1 tablet 2 TIMES DAILY (route: oral) Med Classific ation: Central Nervous System Agents quetiapine 25 mg tablet 2022-09 00:00: 00 08-28 23:59 :00 No [id number] 1 tablet DAILY 1 tablet DAILY (route: oral) Med Classific ation: Central Nervous System Agents escitalopra m 5 mg/5 mL oral solution 2022-09 00:00: 00 08-28 23:59 :00 No [id number] 5 mL BEDTIME 5 mL BEDTIME (route: oral) Med Classific ation: Central Nervous System Agents quetiapine 50 mg tablet 2022-09 00:00: 00 08-28 23:59 :00 No [id number] 1 tablet DAILY 1 tablet DAILY (route: oral) Med Classific ation: Central Nervous System Agents escitalopra m 10 mg tablet 2022-09 00:00: 00 10-22 23:59 :00 No [id number] 1 tablet DAILY 1 tablet DAILY (route: oral) Med Classific ation: Central Nervous System Agents finasteride 5 mg tablet 2022-09 00:00: 00 10-22 23:59 :00 No [id number] 1 tablet DAILY 1 tablet DAILY (route: oral) Med Classific ation: Genitouri nary Therapy gabapentin 100 mg capsule 2022-09 00:00: 00 Yes [id number] 1 capsule NEEDED 1 capsule NEEDED (route: oral) Med Classific ation: Central Nervous System Agents atorvastati n 40 mg tablet 2022-09 00:00: 00 10-22 23:59 :00 No [id number] 1 tablet EVERY PM 1 tablet EVERY PM (route: oral) Med Classific ation: Cardiovas cular Therapy Agents Basaglar KwikPen U-100 Insulin 100 unit/mL (3 mL) subcutaneou s 2022-09 00:00: 00 06-11 23:59 :00 No [id number] 4 unit DAILY 4 unit DAILY (route: subcutaneo us) Med Classific ation: Endocrine metformin 1,000 mg tablet 2022-09 00:00: 10-22 23:59 :00 No [id number] 1 tablet 2 TIMES DAILY 1 tablet 2 TIMES DAILY (route: oral) Med Classific ation: Endocrine Trulicity 0.75 mg/0.5 mL subcutaneou s pen injector 2022-09 00:00: 00 12-16 23:59 :00 No [id number] Per instruc tions DIRECTED Per instructio ns DIRECTED (route: subcutaneo us) Med Classific ation: Endocrine aspirin 81 mg chewable tablet 10-27 00:00: 00 Yes [id number] 1 tablet DAILY 1 tablet DAILY (route: oral) Med Classific ation: Hematolog ical Agents atorvastati n 40 mg tablet 10-27 00:00: 00 Yes [id number] 1 tablet BEDTIME 1 tablet BEDTIME (route: oral) Med Classific ation: Cardiovas cular Therapy Agents carbidopa 25 mg-levodopa 100 mg tablet 10-27 00:00: 00 05-12 23:59 :00 No [id number] 1.5 tablet DIRECTED 1.5 tablet DIRECTED (route: oral) Med Classific ation: Central Nervous System Agents divalproex 125 mg capsule,del ayed release sprinkle 10-27 00:00: 00 Yes [id number] 4 capsule DIRECTED 4 capsule DIRECTED (route: oral) Med Classific ation: Central Nervous System Agents escitalopra m 10 mg tablet 10-27 00:00: 00 Yes [id number] 1 tablet DAILY 1 tablet DAILY (route: oral) Med Classific ation: Central Nervous System Agents finasteride 5 mg tablet 10-27 00:00: 00 Yes [id number] 1 tablet DAILY 1 tablet DAILY (route: oral) Med Classific ation: Genitouri nary Therapy metformin 1,000 mg tablet 10-27 00:00: 00 Yes [id number] 1 tablet EVERY 12 HOURS 1 tablet EVERY 12 HOURS (route: oral) Med Classific ation: Endocrine lisinopril 10 mg tablet 02-23 00:00: 00 Yes [id number] 1 tablet DAILY 1 tablet DAILY (route: oral) Med Classific ation: Cardiovas cular Therapy Agents carbidopa 25 mg-levodopa 100 mg tablet 05-12 00:00: 00 Yes [id number] 2 tablet 4 TIMES DAILY 2 tablet 4 TIMES DAILY (route: oral) Med Classific ation: Central Nervous System Agents Vital Signs Vital Name Observation Time Observation Value Commen ts Temperature 2024-06-03 13:35:00.000 98.2 [degF] Temperature 2024-06-01 14:16:00.000 98.2 [degF] Temperature 2024-06-01 09:40:00.000 97.5 [degF] Temperature 2024-05-31 10:59:00.000 97.8 [degF] Temperature 2024-05-26 14:33:00.000 98.2 [degF] Temperature 2024-05-24 15:03:00.000 98 [degF] Temperature 2024-05-19 13:38:00.000 98.4 [degF] Temperature 2024-05-18 11:09:00.000 97.3 [degF] Height 2024-05-13 09:12:19.000 65 [in_us] Pulse 2024-06-15 11:11:00.000 84 /min Pulse 2024-06-11 08:09:00.000 70 /min Pulse 2024-06-10 07:55:00.000 82 /min Pulse 2024-06-09 08:23:00.000 76 /min Pulse 2024-06-08 07:59:00.000 80 /min Pulse 2024-06-04 08:21:00.000 72 /min Pulse 2024-06-03 13:35:00.000 72 /min Pulse 2024-06-01 14:16:00.000 72 /min Pulse 2024-06-01 09:40:00.000 87 /min Pulse 2024-05-31 19:18:00.000 76 /min Pulse 2024-05-31 10:59:00.000 82 /min Pulse 2024-05-26 14:33:00.000 76 /min Pulse 2024-05-24 15:03:00.000 72 /min Pulse 2024-05-24 09:33:00.000 100 /min Pulse 2024-05-24 07:14:00.000 78 /min Pulse 2024-05-19 13:38:00.000 84 /min Pulse 2024-05-18 11:09:00.000 82 /min Pulse 2024-05-18 09:21:00.000 90 /min Pulse 2024-05-14 09:53:00.000 80 /min Pulse 2024-05-12 11:30:00.000 100 /min O2 Saturation (%) 2024-06-10 07:55:00.000 96 % O2 Saturation (%) 2024-06-09 08:24:00.000 96 % O2 Saturation (%) 2024-06-04 08:20:00.000 97 % O2 Saturation (%) 2024-06-01 09:40:00.000 98 % O2 Saturation (%) 2024-05-31 19:18:00.000 95 % O2 Saturation (%) 2024-05-31 11:01:00.000 98 % O2 Saturation (%) 2024-05-24 09:33:00.000 97 % O2 Saturation (%) 2024-05-18 09:22:00.000 95 % O2 Saturation (%) 2024-05-12 11:31:00.000 97 % Respirations 2024-06-15 11:11:00.000 20 /min Respirations 2024-06-11 08:09:00.000 20 /min Respirations 2024-06-10 07:55:00.000 20 /min Respirations 2024-06-09 08:23:00.000 20 /min Respirations 2024-06-08 07:59:00.000 20 /min Respirations 2024-06-04 08:21:00.000 20 /min Respirations 2024-06-03 13:35:00.000 16 /min Respirations 2024-06-01 14:16:00.000 16 /min Respirations 2024-06-01 09:40:00.000 16 /min Respirations 2024-05-31 10:59:00.000 20 /min Respirations 2024-05-26 14:33:00.000 16 /min Respirations 2024-05-24 15:03:00.000 16 /min Respirations 2024-05-24 07:14:00.000 20 /min Respirations 2024-05-19 13:38:00.000 16 /min Respirations 2024-05-18 11:09:00.000 17 /min Respirations 2024-05-18 09:21:00.000 20 /min Respirations 2024-05-14 09:53:00.000 20 /min Systolic Blood Pressure 2024-06-15 11:11:00.000 140 mm [Hg] Systolic Blood Pressure 2024-06-11 08:09:00.000 140 mm [Hg] Systolic Blood Pressure 2024-06-10 07:55:00.000 136 mm [Hg] Systolic Blood Pressure 2024-06-09 08:23:00.000 124 mm [Hg] Systolic Blood Pressure 2024-06-08 07:59:00.000 122 mm [Hg] Systolic Blood Pressure 2024-06-04 08:21:00.000 142 mm [Hg] Systolic Blood Pressure 2024-06-03 13:35:00.000 126 mm [Hg] Systolic Blood Pressure 2024-06-02 07:43:00.000 128 mm [Hg] Systolic Blood Pressure 2024-06-01 14:16:00.000 126 mm [Hg] Systolic Blood Pressure 2024-06-01 09:40:00.000 108 mm [Hg] Systolic Blood Pressure 2024-05-31 19:18:00.000 132 mm [Hg] Systolic Blood Pressure 2024-05-31 10:59:00.000 120 mm [Hg] Systolic Blood Pressure 2024-05-26 14:33:00.000 118 mm [Hg] Systolic Blood Pressure 2024-05-24 15:03:00.000 124 mm [Hg] Systolic Blood Pressure 2024-05-24 09:32:00.000 116 mm [Hg] Systolic Blood Pressure 2024-05-24 07:14:00.000 127 mm [Hg] Systolic Blood Pressure 2024-05-20 07:15:00.000 162 mm [Hg] Systolic Blood Pressure 2024-05-19 13:38:00.000 124 mm [Hg] Systolic Blood Pressure 2024-05-18 11:09:00.000 112 mm [Hg] Systolic Blood Pressure 2024-05-18 09:21:00.000 136 mm [Hg] Systolic Blood Pressure 2024-05-14 09:53:00.000 110 mm [Hg] Systolic Blood Pressure 2024-05-12 11:30:00.000 106 mm [Hg] Diastolic Blood Pressure 2024-06-15 11:11:00.000 82 mm [Hg] Diastolic Blood Pressure 2024-06-11 08:09:00.000 68 mm [Hg] Diastolic Blood Pressure 2024-06-10 07:55:00.000 72 mm [Hg] Diastolic Blood Pressure 2024-06-09 08:23:00.000 78 mm [Hg] Diastolic Blood Pressure 2024-06-08 07:59:00.000 70 mm [Hg] Diastolic Blood Pressure 2024-06-04 08:21:00.000 78 mm [Hg] Diastolic Blood Pressure 2024-06-03 13:35:00.000 76 mm [Hg] Diastolic Blood Pressure 2024-06-02 07:43:00.000 70 mm [Hg] Diastolic Blood Pressure 2024-06-01 14:16:00.000 74 mm [Hg] Diastolic Blood Pressure 2024-06-01 09:40:00.000 86 mm [Hg] Diastolic Blood Pressure 2024-05-31 19:18:00.000 68 mm [Hg] Diastolic Blood Pressure 2024-05-31 10:59:00.000 72 mm [Hg] Diastolic Blood Pressure 2024-05-26 14:33:00.000 70 mm [Hg] Diastolic Blood Pressure 2024-05-24 15:03:00.000 72 mm [Hg] Diastolic Blood Pressure 2024-05-24 09:32:00.000 66 mm [Hg] Diastolic Blood Pressure 2024-05-24 07:14:00.000 74 mm [Hg] Diastolic Blood Pressure 2024-05-20 07:15:00.000 92 mm [Hg] Diastolic Blood Pressure 2024-05-19 13:38:00.000 74 mm [Hg] Diastolic Blood Pressure 2024-05-18 11:09:00.000 68 mm [Hg] Diastolic Blood Pressure 2024-05-18 09:21:00.000 84 mm [Hg] Diastolic Blood Pressure 2024-05-14 09:53:00.000 66 mm [Hg] Diastolic Blood Pressure 2024-05-12 11:30:00.000 68 mm [Hg] Plan of Treatment Planned Activity Planned Date Details Comments Future Scheduled Test SKILLED NU RSE TO EVALUATE PATIENT, IDENTIFY PRIMARY AND CO-MORBID CONDITIONS CODED PER CODING GUIDELINES, AND DEVELOP PATIENT SPECIFIC PLAN OF CARE THAT INCLUDES PATIENT GOAL FOR HOME HEALTH. [code = SKILLED NURSE TO EVALUATE PATIENT, IDENTIFY PRIMARY AND CO-MORBID CONDITIONS CODED PER CODING GUIDELINES, AND DEVELOP PATIENT SPECIFIC PLAN OF CARE THAT INCLUDES PATIENT GOAL FOR HOME HEALTH.] Future Scheduled Test SKILLED NU RSE FOR O/A OF CLIENT'S SLEEP PATTERNS. MAY TEACH INTERVENTIONS R/T ACQUIRING IMPROVED REST [code = SKILLED NURSE FOR O/A OF CLIENT'S SLEEP PATTERNS. MAY TEACH INTERVENTIONS R/T ACQUIRING IMPROVED REST] Future Scheduled Test SKILLED NU RSE FOR MEDICATION ADMINISTRATION PER MEDICATION LIST TO BE PERFORMED WEEKLY. [code = SKILLED NURSE FOR MEDICATION ADMINISTRATION PER MEDICATION LIST TO BE PERFORMED WEEKLY.] Future Scheduled Test SKILLED NU RSE TO O/A OF PATIENTS MENTAL/BEHAVIORAL STATUS, ASSESS VITAL SIGNS MONTHLY AND PRN ALLOW 2 PRNS FOR MEDICATION MANAGEMENT. [code = SKILLED NURSE TO O/A OF PATIENTS MENTAL/BEHAVIORAL STATUS, ASSESS VITAL SIGNS MONTHLY AND PRN ALLOW 2 PRNS FOR MEDICATION MANAGEMENT.] Future Scheduled Test SKILLED NU RSE FOR O/A OF NEUROCOGNITIVE AND BEHAVIORAL STATUS [code = SKILLED NURSE FOR O/A OF NEUROCOGNITIVE AND BEHAVIORAL STATUS] Future Scheduled Test SKILLED NU RSE FOR O/A OF ALTERED THOUGHT PROCESS AND/OR DISRUPTION IN COGNITIVE OPERATIONS AND ACTIVITIES [code = SKILLED NURSE FOR O/A OF ALTERED THOUGHT PROCESS AND/OR DISRUPTION IN COGNITIVE OPERATIONS AND ACTIVITIES ] Future Scheduled Test SKILLED NU RSE FOR O/A OF GENERAL HEALTH STATUS OF PAIN, CARDIAC, RESPIRATORY, GASTROINTESTINAL, GENITOURINARY, SKIN, NEUROLOGIC, ENDOCRINE SYSTEMS TO IDENTIFY CHANGES ASSOCIATED WITH EXACERBATION FOR EARLY INTERVENTION OF COMPLICATIONS [code = SKILLED NURSE FOR O/A OF GENERAL HEALTH STATUS OF PAIN, CARDIAC, RESPIRATORY, GASTROINTESTINAL, GENITOURINARY, SKIN, NEUROLOGIC, ENDOCRINE SYSTEMS TO IDENTIFY CHANGES ASSOCIATED WITH EXACERBATION FOR EARLY INTERVENTION OF COMPLICATIONS ] Future Scheduled Test SKILLED NU RSE FOR O/A AND SKILLED TEACHING RELATED TO MANAGEMENT OF DEPRESSIVE SYMPTOMS AND/OR DEPRESSION. SN TO REPORT SIGNIFICANT CHANGE IN DEPRESSIVE SYMPTOMS TO CLINICAL PROVIDER FOR EARLY INTERVENTION. [code = SKILLED NURSE FOR O/A AND SKILLED TEACHING RELATED TO MANAGEMENT OF DEPRESSIVE SYMPTOMS AND/OR DEPRESSION. SN TO REPORT SIGNIFICANT CHANGE IN DEPRESSIVE SYMPTOMS TO CLINICAL PROVIDER FOR EARLY INTERVENTION.] Future Scheduled Test SKILLED NU RSE FOR O/A AND TEACHING OF DIABETIC MANAGEMENT INCLUDING BLOOD SUGAR MONITORING/USE OF GLUCOMETER, DIABETIC DIET, LOWER EXTREMITY SKIN INSPECTION, PROPER SKIN/FOOT CARE, AND SIGNS AND SYMPTOMS HYPO/HYPERGLYCEMIA TO REPORT. [code = SKILLED NURSE FOR O/A AND TEACHING OF DIABETIC MANAGEMENT INCLUDING BLOOD SUGAR MONITORING/USE OF GLUCOMETER, DIABETIC DIET, LOWER EXTREMITY SKIN INSPECTION, PROPER SKIN/FOOT CARE, AND SIGNS AND SYMPTOMS HYPO/HYPERGLYCEMIA TO REPORT.] Future Scheduled Test SKILLED NU RSE TO PERFORM HOME SAFETY AND FALL ASSESSMENT AND PROVIDE INSTRUCTION TO IMPLEMENT HOME SAFETY AND FALL PREVENTION STRATEGIES. [code = SKILLED NURSE TO PERFORM HOME SAFETY AND FALL ASSESSMENT AND PROVIDE INSTRUCTION TO IMPLEMENT HOME SAFETY AND FALL PREVENTION STRATEGIES.] Future Scheduled Test SKILLED NU RSE FOR OBSERVATION AND ASSESSMENT OF PATIENTS PAIN LEVEL AND EFFECTIVENESS OF PAIN MANAGEMENT REGIMEN. SKILLED NURSE TO INSTRUCT PATIENT/CAREGIVER REGARDING PHARMACOLOGIC AND NON-PHARMACOLOGIC PAIN CONTROL MEASURES. SKILLED NURSE TO REPORT TO PHYSICIAN IF PAIN IS UNCONTROLLED WITH CURRENT PAIN MANAGEMENT REGIMEN. [code = SKILLED NURSE FOR OBSERVATION AND ASSESSMENT OF PATIENTS PAIN LEVEL AND EFFECTIVENESS OF PAIN MANAGEMENT REGIMEN. SKILLED NURSE TO INSTRUCT PATIENT/CAREGIVER REGARDING PHARMACOLOGIC AND NON-PHARMACOLOGIC PAIN CONTROL MEASURES. SKILLED NURSE TO REPORT TO PHYSICIAN IF PAIN IS UNCONTROLLED WITH CURRENT PAIN MANAGEMENT REGIMEN.] Future Scheduled Test SKILLED NU RSE TO ASSESS PATIENT'S SKIN INTEGRITY AND INSTRUCT PATIENT/CAREGIVER ON MEASURES TO PREVENT PRESSURE ULCERS. [code = SKILLED NURSE TO ASSESS PATIENT'S SKIN INTEGRITY AND INSTRUCT PATIENT/CAREGIVER ON MEASURES TO PREVENT PRESSURE ULCERS.] Future Scheduled Test SKILLED NU RSE TO INSTRUCT PATIENT/CAREGIVER ON ANXIETY MANAGEMENT UTILIZING THE MINDFUL CARE SPECIALTY PROGRAM. [code = SKILLED NURSE TO INSTRUCT PATIENT/CAREGIVER ON ANXIETY MANAGEMENT UTILIZING THE MINDFUL CARE SPECIALTY PROGRAM.] Future Scheduled Test NEED FOR S KILLED TEACHING AND INTERVENTION RELATED TO PRESSURE AREA TO COCCYX SKILLED NURSE OR TRAINED PATIENT/CAREGIVER TO PERFORM WOUND TECHNIQUE- CLEANSE WITH SOAP AND WATER, PAT DRY, APPLY BARRIER CREAM TO PERIWOUND AND WOUND BED, AND OPEN TO AIR. WOUND CARE TO BE PERFORMED DAILY AND PRN IF SOILED. 1-2 PRN SKILLED NURSE VISITS FOR WOUND CARE DUE TO COMPLICATIONS. SKILLED NURSE TO OBTAIN WOUND CULTURE PRN S/S OF INFECTION. WOUND CARE WILL BE PERFORMED BY TRAINED CAREGIVER ON DAYS WHEN SKILLED NURSE IS NOT SCHEDULED FOR A VISIT. DISCONTINUE WOUND CARE/SUPPLIES ONCE WOUND IS HEALED. [code = NEED FOR SKILLED TEACHING AND INTERVENTION RELATED TO PRESSURE AREA TO COCCYX SKILLED NURSE OR TRAINED PATIENT/CAREGIVER TO PERFORM WOUND TECHNIQUE- CLEANSE WITH SOAP AND WATER, PAT DRY, APPLY BARRIER CREAM TO PERIWOUND AND WOUND BED, AND OPEN TO AIR. WOUND CARE TO BE PERFORMED DAILY AND PRN IF SOILED. 1-2 PRN SKILLED NURSE VISITS FOR WOUND CARE DUE TO COMPLICATIONS. SKILLED NURSE TO OBTAIN WOUND CULTURE PRN S/S OF INFECTION. WOUND CARE WILL BE PERFORMED BY TRAINED CAREGIVER ON DAYS WHEN SKILLED NURSE IS NOT SCHEDULED FOR A VISIT. DISCONTINUE WOUND CARE/SUPPLIES ONCE WOUND IS HEALED.] Future Scheduled Test SKILLED NU RSE TO REVIEW PATIENT MEDICATIONS. INSTRUCT PATIENT/CAREGIVER ON MONITORING OF EFFECTIVENESS, ADVERSE DRUG REACTIONS, SIDE EFFECTS OF ALL MEDICATIONS (PRESCRIPTION/-OTC), AND HOW AND WHEN TO REPORT PROBLEMS. [code = SKILLED NURSE TO REVIEW PATIENT MEDICATIONS. INSTRUCT PATIENT/CAREGIVER ON MONITORING OF EFFECTIVENESS, ADVERSE DRUG REACTIONS, SIDE EFFECTS OF ALL MEDICATIONS (PRESCRIPTION/-OTC), AND HOW AND WHEN TO REPORT PROBLEMS. ] Future Scheduled Test SKILLED NU RSE TO ASSESS PATIENTS PSYCHOSOCIAL STATUS TO IDENTIFY POTENTIAL ISSUES THAT MAY COMPLICATE THE PROVISION OF THE PLAN OF CARE INCLUDING THE PATIENTS ABILITY TO ACCESS COMMUNITY RESOURCES AND PSYCHOSOCIAL SUPPORT SERVICES. [code = SKILLED NURSE TO ASSESS PATIENTS PSYCHOSOCIAL STATUS TO IDENTIFY POTENTIAL ISSUES THAT MAY COMPLICATE THE PROVISION OF THE PLAN OF CARE INCLUDING THE PATIENTS ABILITY TO ACCESS COMMUNITY RESOURCES AND PSYCHOSOCIAL SUPPORT SERVICES.] Future Scheduled Test SKILLED NU RSE WILL MAINTAIN SITUATIONAL AWARENESS FOR SAFETY AND WILL NOTIFY CLINICAL SALVAGE MACHINE OPERATOR AND PHYSICIAN/PROVIDER WITH ANY CHANGE IN CONDITION. [code = SKILLED NURSE WILL MAINTAIN SITUATIONAL AWARENESS FOR SAFETY AND WILL NOTIFY CLINICAL SALVAGE MACHINE OPERATOR AND PHYSICIAN/PROVIDER WITH ANY CHANGE IN CONDITION.] Goal 2024-06-22 Patient Goal - UNABLE TO ART ICULATE Goal 2024-04-20 Patient Goal - UNABLE TO ART ICULATE Goal 2024-02-19 Patient Goal - UNABLE TO ADDY BALIZE Goal 2023-12-22 Patient Goal - UNABLE TO ADDY BALIZE Goal 2023-10-22 Patient Goal - UNABLE TO ADDY BALIZE Goal Provider Goal - A PLAN OF CARE WILL BE ESTABLISHED THAT MEETS PATIENT'S SENIOR CARE NEEDS AND INCLUDES PATIENT GOAL FOR HOME HEALTH. Goal Provider Goal - PATIENT WILL REPORT AT LEAST 6-8 HOURS A NIGHT, RESTFUL SLEEP PATTERNS ACHIEVED USING THERAPEUTIC INTERVENTIONS BEFORE THE END OF THE CERTIFICATION PERIOD. Goal Provider Goal - PATIENT WILL COMPLY WITH MEDICATION WHEN NURSE ADMINISTERS THROUGHOUT CERTIFICATION PERIOD. Goal Provider Goal - ALTERED MENTAL/BEHAVIORAL STATUS WILL BE IDENTIFIED PROMPTLY AND INTERVENTION INITIATED QUICKLY TO MINIMIZE ASSOCIATED RISKS THROUGHOUT CERTIFICATION PERIOD. Goal Provider Goal - PATIENT WILL BE ABLE TO PERFORM DAILY FUNCTIONS AND MAINTAIN OPTIMAL BEHAVIORAL/NEUROCOGNITIVE STATUS THROUGHOUT CERTIFICATION PERIOD. Goal Provider Goal - PATIENT WILL BE ABLE TO PERFORM DAILY FUNCTIONS AND HAVE OPTIMAL IMPROVEMENT IN THOUGHT PROCESS THROUGHOUT CERTIFICATION PERIOD. Goal Provider Goal - CHANGE IN GENERAL HEALTH STATUS WILL BE IDENTIFIED AND REPORTED TO PHYSICIAN FOR PROMPT INTERVENTION TO MINIMIZE ASSOCIATED RISKS THROUGHOUT CERTIFICATION PERIOD. Goal Provider Goal - PATIENT WILL REMAIN SAFE WITHOUT DECOMPENSATION IN DEPRESSIVE CONDITION, WHILE MAINTAINING OPTIMAL LEVEL OF MENTAL HEALTH AND WELL BEING THROUGHOUT CERTIFICATION PERIOD. Goal Provider Goal - PATIENT/CAREGIVER WILL VERBALIZE/DEMONSTRATE KNOWLEDGE OF DIABETIC MANAGEMENT. CHANGES IN DIABETIC STATUS WILL BE IDENTIFIED AND REPORTED TO PHYSICIAN FOR PROMPT INTERVENTION THROUGHOUT THE CERTIFICATION PERIOD. Goal Provider Goal - PATIENT/CAREGIVER WILL VERBALIZE/DEMONSTRATE EFFECTIVE HOME SAFETY AND FALL PREVENTION STRATEGIES THROUGHOUT CERTIFICATION PERIOD. Goal Provider Goal - PATIENT/CAREGIVER WILL DEMONSTRATE UNDERSTANDING OF PHARMACOLOGIC AND NONPHARMACOLOGIC PAIN CONTROL MEASURES AND PATIENT WILL HAVE IMPROVEMENT IN PAIN INTERFERING WITH ACTIVITY EVIDENCED BY PAIN CONTROLLED AT LEVEL OF 7 OR LESS BY END OF CERTIFICATION PERIOD. Goal Provider Goal - PATIENT/CAREGIVER WILL VERBALIZE UNDERSTANDING OF PRESSURE ULCER PREVENTION BY END OF THE EPISODE. Goal Provider Goal - PATIENT WILL VERBALIZE DECREASED ANXIETY LEVEL THROUGHOUT CERTIFICATION PERIOD A RESULT OF PARTICIPATION IN THE [facility] C[facility] SPECIALTY PROGRAM. Goal Provider Goal - WOUND CARE WILL BE COMPLETED AND PATIENT WILL HAVE IMPROVED WOUND STATUS EVIDENCED BY NO SIGNS AND SYMPTOMS OF INFECTION, DECREASED WOUND SIZE, AND/OR NO COMPLICATIONS BY THE END OF THE CERTIFICATION PERIOD. Goal Provider Goal - PATIENT/CAREGIVER WILL VERBALIZE UNDERSTANDING OF EDUCATION PROVIDED ON MEDICATIONS BY THE END OF THE CERTIFICATION PERIOD. Goal Provider Goal - PSYCHOSOCIAL NEEDS WILL BE IDENTIFIED AND PLAN IMPLEMENTED TO MINIMIZE RISK THROUGHOUT CERTIFICATION PERIOD. Goal Provider Goal - PATIENT WILL REMAIN SAFE IN THE COMMUNITY AND WILL BE FREE OF DANGER TO SELF AND OTHERS THROUGHOUT THE CERTIFICATION PERIOD. Reason for Visit TOTALLY DEPENDENT Encounters Start Date/Time End Date/Time Encounter Type Admission Type Attending [facility] Care Facility Care Department Encounter ID Discharge Date Discharge Status Discharge Condition Discharge Reason Percent Goals Met 2023-08-28 00:00:00 2024-06-22 00:00:00 Outpatient RECERTIFIC MELIA TABORMARISOLTano [facility] [id number] 2024-06-22 00:00:00 DISCHARGE TO HOME OR SELF CARE TOTALLY DEPENDENT PER PHYSICIAN REQUEST 60.71
--- NOTE | 2024-09-17 10:16 | A.OFFPC_ITS ---
Vital Signs 3 09/17/24 10:22 Height 5 ft 4 in BMI Reason not done Patient refused/unable BP 112/66 Blood Pressure Location Lt brachial Position Sitting Intake Visit Reasons: [facility] 09/01 fall Allergies perfume Allergy (Intermediate, Verified 09/17/24 10:25) ITCHING Tobacco use date assessed: 10/09/23 Dental Screening Dental Screen Date: 09/17/24 Did you have a dental visit in the last 12 months?: Yes Did you have a dental problem in the last 6 months where you did not have access to dental care?: No Was dental information given to patient?: Patient has dentist HPI [facility] 09/01 fall 2 HPI0 Details With the progression of the patient having schizophrenia, Parkinson's, heavy had a fall and sustaining subdural hematoma with the patient being lethargic and no mobility having dysphagia, sustaining pressure ulcers on the sacral area as well as the heel area . Discussion regarding DNR on the patient. Mentioned also palliative treatment. The patient is a 74-year-old male presenting with concerns of pressure ulcers and swallowing dysfunction associated with his conditions. The patient has a history of subdural hemorrhage, initially identified through a CAT scan in July. He has also been experiencing recurrent falls and was diagnosed with Parkinson's Disease, which has been contributing to his ambulatory difficulties. Recently, the patient developed urinary tract infections, believed to be secondary to the use of a condom catheter, and compounded by incontinence. Adding to his complications, the patient developed a sacral pressure ulcer that has been evaluated by wound care specialists, as well as a pressure ulcer on the heel. These ulcers have required specific management and monitoring to prevent deterioration. The patient has experienced a decreased appetite and malnutrition risk, as he is consuming only 60% of his meals, indicating possible swallowing dysfunction. This difficulties have probably been exacerbated by lethargy, a likely sequelae of his recent UTI. There have been discussions about the use of DNR and DNI orders due to the complexity of his illnesses and his current state without a family member to make these decisions, and legal proceedings may be initiated through his guardian. Given his Parkinson's and age-related decline, swallowing precaution and additional support strategies are being recommended. Socially, he is under the care of the state with legal guardianship established through the court. [facility] Medical History Headache Buttock wound Nausea & vomiting Hospital discharge follow-up Confusion Urinary incontinence Weakness of both lower limbs Screening for eye condition Type 2 diabetes mellitus with hyperglycemia, without long-term current use of insulin Diabetes type 2, uncontrolled Unsteady gait Subungual hematoma of great toe Rash Bruising Annual physical exam Pedal edema Oropharyngeal dysphagia Occipital infarction Tubular adenoma of colon Type 2 diabetes mellitus with hyperglycemia Dysphagia Vitamin D deficiency Parkinson's disease Developmental delay, moderate Hypercholesteremia Gastroesophageal reflux disease Hypertension Metabolic encephalopathy Schizophrenia Depression BPH with obstruction/lower urinary tract symptoms Surgical History History of circumcision History of prostate surgery History of colonoscopy Family History Father Type II diabetes mellitus Mother Type II diabetes mellitus Social History Household Members: Caregiver Housing: Assisted Living Facility Housing Other:: [facility] Do you presently have visiting nurse or other home services: Yes Unable to assess alcohol history related to: Unable to respond Alcohol intake: unknown Comment: caregiver in room Patient Tobacco Use Status: Never used Tobacco e-Cigarette/Vaping Use: Never Used Second Hand Smoke Exposure: No Advance Directives Date on File: 07/11/21 service: No Current occupational status: disabled Current occupational exposures/hazards: No Cognitive needs: Yes Hearing needs: No Vision needs: No Questionnaire PHQ-9 Over the last 2 weeks, how often have you been bothered by any of the following problems? 1. Little interest or pleasure in doing things: not at all 2. Feeling down, depressed, or hopeless: several days 3. Trouble falling or staying asleep, or sleeping too much: more than half the days 4. Feeling tired or having little energy: more than half the days 5. Poor appetite or overeating: more than half the days 6. Feeling bad about yourself - or that you are a failure or have let yourself or your family down: not at all 7. Trouble concentrating on things, such as reading the newspaper or watching television: not at all 8. Moving or speaking so slowly that other people could have noticed. Or the opposite - being so fidgety or restless that you have been moving around a lot more than usual: not at all 9. Thoughts that you would be better off or of hurting yourself in some way: not at all Total score: 7 Depression Screening Interpretation: Positive Depression Screening Done: Yes 90049 - PHQ-9 Billing: Yes Source: Developed by Drs. Ran Nieves, Bertha Lao, Natanael Chen and colleagues, with an educational sanford from [employer]. Thrive Questionnaire Date Thrive assessed: 05/04/24 I am a: Parent/Caregiver What is your living situation today?: I have a steady place to live Within the past 12 months, did the food you bought not last and you didn't have the money to get more?: Never true Within the past 12 months, did you worry whether your food would run out before you got money to buy more?: Never true THRIVE Score: 0 AUDIT C Alcohol Use Questionnaire (AUDIT-C) 1. How often do you have a drink containing alcohol?: Never 3. How often do you have six or more drinks on one occasion?: Never Total Score: 0 Score Reviewed/Action Taken: No NAVIN-7 AMB Questionnaire NAVIN-7 Date NAVIN - 7 assessed: 10/09/23 Source: Developed by Drs. Ran Nieves, Bertha Lao, Natanael Chen and colleagues, with an educational sanford from [employer]. Physical exam (Primary Care) Vital Signs: Last Vital Signs BP 112/66 09/17/24 10:22 Tobacco/Smoking Status: Tobacco use Status Tobacco use date assessed 10/09/23 09/17/24 10:17 Patient Tobacco Use Status Never used Tobacco 09/17/24 10:17 e-Cigarette/Vaping Use Never Used 09/17/24 10:17 PHQ-9: PHQ-9 Score PHQ-9: Total score 7 09/17/24 10:50 Depression Screening Interpretation: Positive Thrive Assessment: Date of Thrive Assessment Date Thrive assessed 05/04/24 09/17/24 10:17 Const General: alert; No acute distress HENMT Other: Patient is seen just moaning no words understood opens eyelid on noxious stimuli does move 2/5 upper and lower extremity patient does on a wheelchair Eyes Conjunctivae: conjunctivae normal Resp Auscultation: clear to auscultation bilaterally Cardio Rate: regular rate Rhythm: regular rhythm GI Inspection: Yes normal to inspection Skin Full body images: 2 1. 4 cm by 3 cm skin sloughed off with bleeding with sub q ton off 2. 2 cm whitish skin noted , no breakdown 3. L heel 1 cm hematoma and L medial metatarsal (big toe ) erythema 2 cm Results AMB Hemoglobin A1c 2 AMB Hemoglobin A1c 5.7 % Last Edit by Kelly Hunter CMA on 09/17/24 10:49 Results Reviewed Results Reviewed: Laboratory Last Values Hgb A1c (Clinic) 5.7 % (4.0-6.0) 09/17/24 10:49 Coding Level of Care Code Est Pt Level 4 (57549) Complex EM visit Add On G2211 Diagnoses Schizophrenia F20.3 Schizophrenia type: undifferentiated schizophrenia Primary hypertension I10 Hypertension type: primary hypertension Gastroesophageal reflux disease without esophagitis K21.9 Esophagitis presence: without esophagitis Hypercholesteremia E78.00 Type 2 diabetes mellitus with hyperglycemia, with long-term current use of insulin E11.65; Z79.4 Diabetes mellitus assistant terminal manager insulin use: with custodial use Subdural hemorrhage I62.00 Primary parkinsonism G20.C Parkinsonism type: primary Parkinsonism Pressure injury of left heel, stage 1 L89.621 Pressure injury stage: stage 1 Pressure injury of sacral region, stage 3 L89.153 Pressure injury stage: stage 3 Additional Codes PHQ-9 - 74269 - PHQ-9 Billing: Yes ([id number]) Assessment & Plan Assessment & Plan (1) Schizophrenia: Comment: Dr. Duffy; 20 min reviewing chart evaluating patient and documenting Code(s): F20.9 - Schizophrenia, unspecified Category: Medical Qualifiers: Schizophrenia type: undifferentiated schizophrenia Qualified Code(s): F 20.3 - Undifferentiated schizophrenia Plan: Continue with present medication and follow-up with psychiatry (2) Hypertension: Comment: Echo normal ejection fraction with impaired relaxation April 2020 Code(s): I10 - Essential (primary) hypertension Category: Medical Qualifiers: Hypertension type: primary hypertension Qualified Code(s): I10 - Essential (primary) hypertension Plan: Continue with blood pressure medication. Decrease salt intake and exercise on lisinopril 10 mg once a day (3) Gastroesophageal reflux disease: Code(s): K21.9 - Gastro-esophageal reflux disease without esophagitis Category: Medical Qualifiers: Esophagitis presence: without esophagitis Qualified Code(s): K21.9 - Gastro-esophageal reflux disease without esophagitis Plan: Avoid the foods that causes that usually spicy foods, tomato products, juices, coffee, soda and foods that your sensitive to. After eating do not lie down, allow 3-4 hours before in lie down. And keep the head of bed above 30 degrees to avoid the acid from going up. (4) Hypercholesteremia: Code(s): E78.00 - Pure hypercholesterolemia, unspecified Category: Medical Plan: Avoid fried foods, chicken skin, eggs, butter margarine, pastries and meat. Be it pork or beef they have a lot of cholesterol on atorvastatin 40 mg once a day (5) Type 2 diabetes mellitus with hyperglycemia: Code(s): E11.65 - Type 2 diabetes mellitus with hyperglycemia Category: Medical Qualifiers: Diabetes mellitus custodial insulin use: with custodial use Qualified Code(s): E11.65 - Type 2 diabetes mellitus with hyperglycemia; Z79.4 - assistant terminal manager (current) use of insulin Plan: Decrease the amount of carbohydrate intake, pasta, bread, rice and potatoes are all sugar and that is aside from all the sweet stuff, remember that fruits are good but they are Sweet also. On metformin a 1000 mg twice a day (6) Subdural hemorrhage: Comment: 07/2024 Code(s): I62.00 - Nontraumatic subdural hemorrhage, unspecified Category: Medical Plan: Continue to monitor (7) Parkinsonism: Comment: July 2023 admission Code(s): G20.C - Parkinsonism, unspecified Category: Medical Qualifiers: Parkinsonism type: primary Parkinsonism Qualified Code(s): G20.C - Parkinsonism, unspecified Plan: Continue with medication (8) Pressure ulcer of left heel: Code(s): L89.629 - Pressure ulcer of left heel, unspecified stage Category: Medical Qualifiers: Pressure injury stage: stage 1 Qualified Code(s): L89.621 - Pressure ulcer of left heel, stage 1 Plan: Advised getting off of the heel (9) Pressure ulcer of sacral region: Comment: 3 by 4 cm openwound to muscular area right side and 2 cm L side whitish skin Code(s): L89.159 - Pressure ulcer of sacral region, unspecified stage Category: Medical Qualifiers: Pressure injury stage: stage 3 Qualified Code(s): L89.153 - Pressure ulcer of sacral region, stage 3 Plan: - Arrange for a accounting software specialist to conduct home visits to monitor and treat the sacral and heel ulcers, potentially using appropriate barrier creams and non-adhesive bandages until specific wound care directives are issued. - Provide intermittent vancomycin and oral trimethoprim-sulfamethoxazole for the urinary tract infection; monitor for effectiveness with follow-up urinalysis as culture results permit. - Consider urology consultation if UTI recurrence persists. - Implement feeding therapy interventions to address swallowing dysfunction, incorporating cue-based swallow facilitation and nutritional support to ensure adequate caloric intake. - Discuss palliative care measures and initiate conversations with legal guardians regarding end-of-life care options, specifically DNR/DNI considerations. - Increase routine monitoring for Parkinson's disease progression and provide mobility aids as necessary. - Continue use of a condom catheter while managing incontinence and preventing potential skin breakdowns. - Follow up on legalities regarding guardianship and health care decision-making processes to ensure compliance with prescribed legal protocols. Patient was informed and verbally consented to the use of an ambient scribe for clinic note documentation during this visit. Orders: Orders 2 AMB Hemoglobin A1c Today Z13.9 - Encounter for screening, unspecified Thyroid Stimulating Hormone Today E11.65 - Type 2 diabetes mellitus with hyperglycemia, Z79.4 - assistant terminal manager (current) use of insulin Free T4 (Free Thyroxine) Today E11.65 - Type 2 diabetes mellitus with hyperglycemia, Z79.4 - assistant terminal manager (current) use of insulin Vitamin B12 and Folate Today E11.65 - Type 2 diabetes mellitus with hyperglycemia, Z79.4 - FPC (current) use of insulin Ferritin Today E11.65 - Type 2 diabetes mellitus with hyperglycemia, Z79.4 - FPC (current) use of insulin IRON PROFILE Today E11.65 - Type 2 diabetes mellitus with hyperglycemia, Z79.4 - FPC (current) use of insulin UA CC w/rflx Micro + Cult Today R30.0 - Dysuria, R82.90 - Unspecified abnormal findings in urine Complete Blood Count Auto Diff Today Z00.00 - Encounter for general adult medical examination without abnormal findings Reticulocyte Count Today E11.65 - Type 2 diabetes mellitus with hyperglycemia, Z79.4 - FPC (current) use of insulin
[2024-09-17 10:22] VITALS: BP 112/66
== END 2024-09-17 11:17 | disposition home or self-care (01) ==
PROVIDERS: PCP Internal Medicine; Visit Provider Internal Medicine
DX: E11.65 Type 2 diabetes mellitus with hyperglycemia (principal); F20.3 Undifferentiated schizophrenia; Z79.4 Long term (current) use of insulin; I62.00 Nontraumatic subdural hemorrhage, unspecified; G20.C Parkinsonism, unspecified; L89.153 Pressure ulcer of sacral region, stage 3; K21.9 Gastro-esophageal reflux disease without esophagitis; I10 Essential (primary) hypertension; E78.00 Pure hypercholesterolemia, unspecified; L89.621 Pressure ulcer of left heel, stage 1

== ENCOUNTER → 2024-09-17 10:12 | Outpatient (BNVA) | payer MEDICARE, MEDICAID, SELFPAY | PROVIDERS: PCP Internal Medicine; Visit Provider Internal Medicine | DX: Z00.00 Encounter for general adult medical examination without abnormal findings (principal); F20.3 Undifferentiated schizophrenia; I10 Essential (primary) hypertension; K21.9 Gastro-esophageal reflux disease without esophagitis; E78.00 Pure hypercholesterolemia, unspecified; E11.65 Type 2 diabetes mellitus with hyperglycemia; E11.621 Type 2 diabetes mellitus with foot ulcer; L89.621 Pressure ulcer of left heel, stage 1; E11.622 Type 2 diabetes mellitus with other skin ulcer; L89.153 Pressure ulcer of sacral region, stage 3; I62.00 Nontraumatic subdural hemorrhage, unspecified; G20.C Parkinsonism, unspecified; R30.0 Dysuria; R82.90 Unspecified abnormal findings in urine; Z91.81 History of falling; Z79.4 Long term (current) use of insulin | CPT/HCPCS: 83036; 96127; 99212 ==